=== PATIENT | female | born 1975 | race African-American/Black ===

== ENCOUNTER 2017-12-18 16:08 | Emergency (ER) | payer OTHER ==
[~2017-12-18] VITALS: Ht 162.6 cm; Wt 85.7 kg
[2017-12-18] MEDS ORDERED: Sodium Chloride 500ML 500 ML IV ONE (16:38)
[2017-12-18] MEDS ORDERED: Norco 5mg/325mg tab ORAL ONE (16:45)
[2017-12-18] MEDS ORDERED: Lidocaine 1% MPF 10mg/ml 5ml INJ ONE (16:45)
[2017-12-18 18:21] LABS: APPEARANCE,URINE CLOUDY; BILIRUBIN, URINE NEGATIVE (NEGATIVE); COLOR,URINE PALE YELLOW; GLUCOSE, URINE (UA) 4+ (NEGATIVE); KETONES,URINE 1+ (NEGATIVE); LEUKOCYTE ESTERASE ,URINE NEGATIVE (NEGATIVE); NITRITE,URINE NEGATIVE (NEGATIVE); PH,URINE 5 (4.5-8.0); PROTEIN,URINE 1+ (NEGATIVE); UROBILINOGEN,URINE NORMAL MG/DL (0.0-1.0)
[2017-12-18] MEDS ORDERED: LANTUS SOL100 UNIT/1 SUBQ (18:28)
[2017-12-18] MEDS ORDERED: ADMELOG SUBQ (18:30)
[2017-12-18 18:32] LABS: ANION GAP 9 mmol/L (5-15); BLOOD UREA NITROGEN 15 mg/dL (7-18); CALCIUM 9.5 MG/DL (8.5-10.1); CARBON DIOXIDE 28 MMOL/L (21-32); CHLORIDE 97 MMOL/L (98-107); CREATININE 0.8 MG/DL (0.55-1.30); POTASSIUM 4.1 MMOL/L (3.5-5.1); SODIUM 134 MMOL/L (136-145)
[2017-12-18 18:37] LABS: ALANINE AMINOTRANSFERASE 24 U/L (12-78); ALBUMIN 3.8 G/DL (3.4-5.0); ALBUMIN/GLOBULIN RATIO 0.9 (1.0-2.7); ALKALINE PHOSPHATASE 124 U/L (46-116); ASPARTATE AMINO TRANSFERASE 15 U/L (15-37); BILIRUBIN,TOTAL 0.3 MG/DL (0.2-1.0)
[2017-12-18 18:46] VITALS: BP 130/86
[2017-12-18 18:50] LABS: BASOPHILS % (AUTO) 0.6 % (0.0-2.0); EOSINOPHILS % (AUTO) 0.7 % (0.0-3.0); HEMOGLOBIN 13.4 G/DL (12.0-16.0); LYMPHOCYTES % (AUTO) 23.4 % (20.0-45.0); MEAN CORPUSCULAR VOLUME 86 FL (80-99); MONOCYTES % (AUTO) 4.5 % (1.0-10.0); NEUTROPHILS % (AUTO) 70.7 % (45.0-75.0); PLATELET COUNT 267 K/UL (150-450); RED BLOOD COUNT 4.63 M/UL (4.20-5.40); RED CELL DISTRIBUTION WIDTH 12.8 % (11.6-14.8); WHITE BLOOD COUNT 8.3 K/UL (4.8-10.8)
[2017-12-18] MEDS ORDERED: Bacitracin Oint UD TOPIC ONE (19:00)
[2017-12-18] MEDS ORDERED: Insulin Human Regular 100units/ml 3ml IV ONE (19:00)
[2017-12-18 20:00] VITALS: BP 133/96
--- NOTE | 2017-12-18 20:25 | Emergency Room Report ---
History of Present Illness General Chief Complaint: General Complaint Source: Patient Present Illness HPI Patient is had difficulty controlling her blood sugars for several days. She has an infection of her right ring finger that has been worsening and she feels this is the cause. She does take Lantus and also regular insulin. Her sugars of been greater than 300 at least 2 or 3 days. The patient states her fingers painful. Pain rated 10/10, pressure and sharp aching. There is no numbness. There is pus underneath the skin and the nail on one side. She denies any trauma. No NVD, dysuria, chest pain, dyspnea, other rashes, vag discharge, other extremity pain, headache. Allergies: Coded Allergies: No Known Allergies (Unverified , 12/18/17) Patient History Past Medical History: see triage record Social History: Reports: smoking Social History Narrative at home Last Menstrual Period: 11/20/2017 Now: No Reviewed Nursing Documentation: PMH: Agreed; PSxH: Agreed Nursing Documentation-PMH Past Medical History: No History, Except For Hx Diabetes: Yes Review of Systems All Other Systems: negative except mentioned in HPI Physical Exam Vital Signs Date Time Temp Pulse Resp B/P (MAP) Pulse Ox O2 Delivery O2 Flow Rate FiO2 12/18/17 16:15 98.4 96 14 130/86 99 Room Air 98.4 Sp02 EP Interpretation: reviewed, normal General Appearance: well appearing, no apparent distress, GCS 15 Head: normocephalic Eyes: bilateral eye normal inspection, bilateral eye PERRL ENT: moist mucus membranes Neck: supple Respiratory: lungs clear, normal breath sounds Cardiovascular #1: regular rate, rhythm Cardiovascular #2: 2+ radial (R) Gastrointestinal: normal inspection, normal bowel sounds, non tender, no mass, non-distended Musculoskeletal: back normal, gait/station normal, normal range of motion, swelling - and tenderness right ring finger Neurologic: alert, oriented x3, grossly normal Psychiatric: mood/affect normal Skin: warm/dry, other - paronychium R ring finger Procedures Incision and Drainage Incision and Drainage : Consent: Verbal Site: L ring finger Blade Size: 11 I & D Procedure: betadine prep, sterile drapes applied, sterile dressing applied Wound Location: upper extremity Wound's Depth, Shape: superficial, other - wedge resection of nail performed Wound Length (cm): 1 - wedge resection of nail Wound Explored: contaminated - pus expressed and drained Anesthesia: 1% Lidocaine - 1/2 digital block Volume Anesthetic (ccs): 2 Splint Applied?: No Patient Tolerated: Well Complications: None Medical Decision Making Diagnostic Impression: Primary Impression: Hyperglycemia Additional Impressions: Cellulitis and abscess of hand Paronychia ER Course Patient presents with hyperglycemia and a finger infection. Differential includes sepsis, diabetic ketoacidosis, diabetes poor control, cellulitis, osteomyelitis amongst others. This is disconcerting that she's been unable to control her blood sugars at home as she is aware how to do so with sliding scale insulin. Evaluation will be with labs. The finger needs to be incised and drained. The patient will be given a fluid bolus and then if needed insulin. Labs her CBC significant for normal white count and hemoglobin and hematocrit. CMP has normal bicarbonate but elevated blood sugar. After fluid boluses a blood sugar was still high. Insulin 10 units was given IV. The patient tolerated the incision and drainage and wedge resection of the nail well. The finger was dressed with a tube gauze and nonstick dressing and bacitracin. Blood sugar still wasn't improved much after IV insulin. The patient is not in diabetic ketoacidosis however there is resistance to the insulin at this time due to infection. Patient is also on pain at this time and morphine will be given as she took extra doses of the gabapentin earlier today. The patient was discussed with Dr. Chase and transferred. Laboratory Tests Test 12/18/17 18:00 White Blood Count 8.3 K/UL (4.8-10.8) Red Blood Count 4.63 M/UL (4.20-5.40) Hemoglobin 13.4 G/DL (12.0-16.0) Hematocrit 40.0 % (37.0-47.0) Mean Corpuscular Volume 86 FL (80-99) Mean Corpuscular Hemoglobin 28.9 PG (27.0-31.0) Mean Corpuscular Hemoglobin Concent 33.5 G/DL (32.0-36.0) Red Cell Distribution Width 12.8 % (11.6-14.8) Platelet Count 267 K/UL (150-450) Mean Platelet Volume 7.4 FL (6.5-10.1) Neutrophils (%) (Auto) 70.7 % (45.0-75.0) Lymphocytes (%) (Auto) 23.4 % (20.0-45.0) Monocytes (%) (Auto) 4.5 % (1.0-10.0) Eosinophils (%) (Auto) 0.7 % (0.0-3.0) Basophils (%) (Auto) 0.6 % (0.0-2.0) Urine Color Pale yellow Urine Appearance Cloudy Urine pH 5 (4.5-8.0) Urine Specific [place] 1.020 (1.005-1.035) Urine Protein 1+ (NEGATIVE) H Urine Glucose (UA) 4+ (NEGATIVE) H Urine Ketones 1+ (NEGATIVE) H Urine Blood 2+ (NEGATIVE) H Urine Nitrite Negative (NEGATIVE) Urine Bilirubin Negative (NEGATIVE) Urine Urobilinogen Normal MG/DL (0.0-1.0) Urine Leukocyte Esterase Negative (NEGATIVE) Urine RBC 10-15 /HPF (0 - 2) H Urine WBC 0-2 /HPF (0 - 2) Urine Squamous Epithelial Cells Many /LPF (NONE/OCC) H Urine Amorphous Sediment Moderate /LPF (NONE) H Urine Bacteria Few /HPF (NONE) Sodium Level 134 MMOL/L (136-145) L Potassium Level 4.1 MMOL/L (3.5-5.1) Chloride Level 97 MMOL/L (98-107) L Carbon Dioxide Level 28 MMOL/L (21-32) Anion Gap 9 mmol/L (5-15) Blood Urea Nitrogen 15 mg/dL (7-18) Creatinine 0.8 MG/DL (0.55-1.30) Estimate Glomerular Filtration Rate > 60 mL/min (>60) Glucose Level 385 MG/DL (74-106) H Calcium Level 9.5 MG/DL (8.5-10.1) Total Bilirubin 0.3 MG/DL (0.2-1.0) Aspartate Amino Transferase (AST) 15 U/L (15-37) Alanine Aminotransferase (ALT) 24 U/L (12-78) Alkaline Phosphatase 124 U/L (46-116) H Total Protein 7.9 G/DL (6.4-8.2) Albumin 3.8 G/DL (3.4-5.0) Globulin 4.1 g/dL Albumin/Globulin Ratio 0.9 (1.0-2.7) L Human Chorionic Gonadotropin, Qual Negative (NEGATIVE) Last Vital Signs Date Time Temp Pulse Resp B/P (MAP) Pulse Ox O2 Delivery O2 Flow Rate FiO2 12/18/17 23:07 98.4 82 18 138/89 93 Room Air 98.4 Status: improved Disposition: XFER SHT-TRM HOSP Condition: Serious Referrals: Shree Mcintyre MD (PCP) Julio Easley M.D. Dec 18, 2017 20:25
[2017-12-18] MEDS ORDERED: Bactrim-DS 1 tab ORAL ONE (20:30)
[2017-12-18] MEDS ORDERED: Morphine Sulfate 4mg/ml Inj (IV USE ONLY) IVP ONE ×2 (20:30→21:45)
[2017-12-18] MEDS ORDERED: cefTRIAXone 1 GM in NS 55 ML IVPB ONE (20:30)
[2017-12-18] MEDS ORDERED: Bactrim-DS 1 tab ONE (22:44)
[2017-12-18 22:48] VITALS: BP 138/89
[2017-12-18 22:55] VITALS: BP 138/89
[2017-12-18 23:07] VITALS: BP 138/89
== END 2017-12-18 23:07 | disposition short-term general hospital (02) ==
LOC: EMR 16:40
DX: E11.65 Type 2 diabetes mellitus with hyperglycemia (principal); L03.011 Cellulitis of right finger; Z79.4 Long term (current) use of insulin; F17.200 Nicotine dependence, unspecified, uncomplicated
CPT/HCPCS: 10060; 36415; 80053; 81003; 82962; 84703; 85025; 96365; 96375; 96376; 99285; J0696; J1815; J2270; J2405; J7040

== ENCOUNTER 2018-04-28 12:46 | Emergency (ER) | payer OTHER ==
[~2018-04-28] VITALS: Ht 157.5 cm; Wt 99.8 kg
[~2018-04-28 12:46] MED LIST: ADMELOG SUBQ; LANTUS SOL100 UNIT/1 SUBQ
[2018-04-28] MEDS ORDERED: Morphine Sulfate 4mg/ml Inj (IV/IM USE ONLY) IVP ONE (13:30)
[2018-04-28] MEDS ORDERED: Isovue-300 100ml vial INJ PRN (13:30)
--- NOTE | 2018-04-28 13:32 | NUR ---
ED Nurse Note: patient's bs checked 49, a/o x4, able to take PO juice, 2 juice given MD aware. has DM II
[2018-04-28 13:36] LABS: APPEARANCE,URINE SLIGHTLY CLOUDY; BILIRUBIN, URINE NEGATIVE (NEGATIVE); COLOR,URINE PALE YELLOW; GLUCOSE, URINE (UA) NEGATIVE (NEGATIVE); KETONES,URINE NEGATIVE (NEGATIVE); LEUKOCYTE ESTERASE ,URINE NEGATIVE (NEGATIVE); NITRITE,URINE NEGATIVE (NEGATIVE); PH,URINE 6.5 (4.5-8.0); PROTEIN,URINE 1+ (NEGATIVE); UROBILINOGEN,URINE NORMAL MG/DL (0.0-1.0)
[2018-04-28 13:44] LABS: BASOPHILS % (AUTO) 1.8 % (0.0-2.0); EOSINOPHILS % (AUTO) 1.4 % (0.0-3.0); HEMATOCRIT 38.7 % (37.0-47.0); HEMOGLOBIN 12.7 G/DL (12.0-16.0); LYMPHOCYTES % (AUTO) 25.9 % (20.0-45.0); MEAN CORPUSCULAR VOLUME 86 FL (80-99); MONOCYTES % (AUTO) 4.4 % (1.0-10.0); NEUTROPHILS % (AUTO) 66.6 % (45.0-75.0); PLATELET COUNT 383 K/UL (150-450); RED BLOOD COUNT 4.52 M/UL (4.20-5.40); RED CELL DISTRIBUTION WIDTH 13.2 % (11.6-14.8); WHITE BLOOD COUNT 9.7 K/UL (4.8-10.8)
--- NOTE | 2018-04-28 14:37 | NUR ---
ED Nurse Note: bs 70, 2 more cups of juice given
--- NOTE | 2018-04-28 14:40 | NUR ---
ED Nurse Note: received contrast consent from the patient a/o x4. patient was eating a snack she brought from home says she's hungry, educated patient not to eat for the scan pt verbalized understanding
[2018-04-28 14:56] LABS: ANION GAP 9 mmol/L (5-15); BLOOD UREA NITROGEN 8 mg/dL (7-18); CALCIUM 9.8 MG/DL (8.5-10.1); CARBON DIOXIDE 27 MMOL/L (21-32); CHLORIDE 103 MMOL/L (98-107); CREATININE 0.7 MG/DL (0.55-1.30); POTASSIUM 3.7 MMOL/L (3.5-5.1); SODIUM 139 MMOL/L (136-145)
[2018-04-28 15:01] LABS: ALANINE AMINOTRANSFERASE 20 U/L (12-78); ALBUMIN 3.5 G/DL (3.4-5.0); ALBUMIN/GLOBULIN RATIO 0.8 (1.0-2.7); ALKALINE PHOSPHATASE 102 U/L (46-116); ASPARTATE AMINO TRANSFERASE 14 U/L (15-37); BILIRUBIN,TOTAL 0.2 MG/DL (0.2-1.0)
--- NOTE | 2018-04-28 15:12 | NUR ---
ED Nurse Note: going down for CT
--- NOTE | 2018-04-28 15:44 | Emergency Room Report ---
History of Present Illness General Chief Complaint: Abdominal Pain Source: Patient (Wesley Waggoner MD) Present Illness HPI 42-year-old female presents ED for evaluation. Complaining of abdominal pain with nausea and vomiting. Started yesterday. Pain is sharp, 8 out of 10, nonradiating. Notes nausea and vomiting. Denies any diarrhea. States that she 's had a previous hernia with mesh repair in the past. Denies fevers or chills. Denies chest pain. No other aggravating relieving factors. Denies any other associated symptoms (Wesley Waggoner MD) Allergies: Coded Allergies: No Known Allergies (Unverified , 12/18/17) Patient History Past Medical History: DM Past Surgical History: other - hernia mesh repair Pertinent Family History: none Social History: Denies: smoking, alcohol use, drug use Last Menstrual Period: 04/08/18 Now: No Immunizations: UTD Reviewed Nursing Documentation: PMH: Agreed; PSxH: Agreed (Wesley Waggoner MD) Social History Narrative Works in [employer] (Julio Easley MD) Nursing Documentation-PMH Past Medical History: No History, Except For Hx Diabetes: Yes (Wesley Waggoner MD) Review of Systems All Other Systems: negative except mentioned in HPI (Wesley Waggoner MD) Physical Exam Vital Signs Date Time Temp Pulse Resp B/P (MAP) Pulse Ox O2 Delivery O2 Flow Rate FiO2 04/28/18 12:54 101 20 122/79 98 Room Air Sp02 EP Interpretation: reviewed, normal General Appearance: no apparent distress, alert, GCS 15, non-toxic, obese Head: normocephalic, atraumatic Eyes: bilateral eye normal inspection, bilateral eye PERRL ENT: hearing grossly normal, normal pharynx, no angioedema, normal voice Neck: full range of motion, supple/symm/no masses Respiratory: chest non-tender, lungs clear, normal breath sounds, speaking full sentences Cardiovascular #1: regular rate, rhythm, no edema Cardiovascular #2: 2+ carotid (R), 2+ carotid (L), 2+ radial (R), 2+ radial (L) , 2+ dorsalis pedis (R), 2+ dorsalis pedis (L) Gastrointestinal: normal bowel sounds, soft, non-distended, no guarding, no rebound, tenderness Rectal: deferred Genitourinary: normal inspection, no CVA tenderness Musculoskeletal: back normal, gait/station normal, normal range of motion, non- tender Neurologic: alert, oriented x3, responsive, motor strength/tone normal, sensory intact, speech normal Psychiatric: judgement/insight normal, memory normal, mood/affect normal, no suicidal/homicidal ideation Reflexes: 3+ bicep (R), 3+ bicep (L), 3+ tricep (R), 3+ tricep (L), 3+ knee (R) , 3+ knee (L) Skin: normal color, no rash, warm/dry, well hydrated Lymphatic: no adenopathy (Wesley Waggoner MD) Medical Decision Making Diagnostic Impression: Primary Impression: Abdominal pain Qualified Codes: R10.84 - Generalized abdominal pain Additional Impressions: Hypoglycemia Ventral hernia Qualified Codes: K43.9 - Ventral hernia without obstruction or gangrene Chronic calcific pancreatitis Labs Test 04/28/18 13:00 04/28/18 13:27 04/28/18 14:16 Urine Color Pale yellow Urine Appearance Slightly cloudy Urine pH 6.5 (4.5-8.0) Urine Specific [place] 1.015 (1.005-1.035) Urine Protein 1+ (NEGATIVE) Urine Glucose (UA) Negative (NEGATIVE) Urine Ketones Negative (NEGATIVE) Urine Blood 1+ (NEGATIVE) Urine Nitrite Negative (NEGATIVE) Urine Bilirubin Negative (NEGATIVE) Urine Urobilinogen Normal MG/DL (0.0-1.0) Urine Leukocyte Esterase Negative (NEGATIVE) Urine RBC 2-4 /HPF (0 - 2) Urine WBC 2-4 /HPF (0 - 2) Urine Squamous Epithelial Cells Moderate /LPF (NONE/OCC) Urine Bacteria Few /HPF (NONE) Urine HCG, Qualitative Negative (NEGATIVE) White Blood Count 9.7 K/UL (4.8-10.8) Red Blood Count 4.52 M/UL (4.20-5.40) Hemoglobin 12.7 G/DL (12.0-16.0) Hematocrit 38.7 % (37.0-47.0) Mean Corpuscular Volume 86 FL (80-99) Mean Corpuscular Hemoglobin 28.2 PG (27.0-31.0) Mean Corpuscular Hemoglobin Concent 32.9 G/DL (32.0-36.0) Red Cell Distribution Width 13.2 % (11.6-14.8) Platelet Count 383 K/UL (150-450) Mean Platelet Volume 5.2 FL (6.5-10.1) Neutrophils (%) (Auto) 66.6 % (45.0-75.0) Lymphocytes (%) (Auto) 25.9 % (20.0-45.0) Monocytes (%) (Auto) 4.4 % (1.0-10.0) Eosinophils (%) (Auto) 1.4 % (0.0-3.0) Basophils (%) (Auto) 1.8 % (0.0-2.0) Sodium Level 139 MMOL/L (136-145) Potassium Level 3.7 MMOL/L (3.5-5.1) Chloride Level 103 MMOL/L (98-107) Carbon Dioxide Level 27 MMOL/L (21-32) Anion Gap 9 mmol/L (5-15) Blood Urea Nitrogen 8 mg/dL (7-18) Creatinine 0.7 MG/DL (0.55-1.30) Estimat Glomerular Filtration Rate > 60 mL/min (>60) Glucose Level 63 MG/DL (74-106) Calcium Level 9.8 MG/DL (8.5-10.1) Total Bilirubin 0.2 MG/DL (0.2-1.0) Aspartate Amino Transf (AST/SGOT) 14 U/L (15-37) Alanine Aminotransferase (ALT/SGPT) 20 U/L (12-78) Alkaline Phosphatase 102 U/L (46-116) Total Protein 7.9 G/DL (6.4-8.2) Albumin 3.5 G/DL (3.4-5.0) Globulin 4.4 g/dL Albumin/Globulin Ratio 0.8 (1.0-2.7) Lipase 53 U/L (73-393) (Wesley Waggoner MD) ER Course Please see above note. Patient signed out to me to review CAT scan of abdomen and pelvis. CT reveals suggestion of inflammation of small bowel. No surgical pathology. Patient is improved. Discussed with patient outpatient observation and treatment. She understands close observation and the need to return if the pain returns or if there are difficulties controlling her blood sugar. Patient stable for outpatient observation and treatment. (Julio Easley MD) CT/MRI/US Diagnostic Results CT/MRI/US Diagnostic Results : Imaging Test Ordered: Abdomen and pelvis Impression Complex ventral hernia in the region of the umbilicus and just above the umbilicus as described above. The hernias contain fat. No evidence of bowel obstruction. Questionable mild enteritis/ileus. Correlate clinically. Chronic calcific pancreatitis Right fallopian tube implant. No corresponding left implant identified. Correlate clinically. (Julio Easley MD) Last Vital Signs Date Time Temp Pulse Resp B/P (MAP) Pulse Ox O2 Delivery O2 Flow Rate FiO2 04/28/18 15:21 101 20 Room Air 04/28/18 12:54 122/79 98 (Wesley Waggoner MD) Last Vital Signs Date Time Temp Pulse Resp B/P (MAP) Pulse Ox O2 Delivery O2 Flow Rate FiO2 04/28/18 17:39 97.2 04/28/18 17:30 72 20 122/79 98 Room Air Status: improved (Julio Easley MD) Disposition: HOME, SELF-CARE Condition: Improved Scripts Ibuprofen* (MOTRIN*) 600 Mg Tablet 600 MG ORAL Q6H PRN for For Pain, #20 TAB Prov: Julio Easley MD 04/28/18 Hydrocodone Bit/Acetaminophen 5-325* (NOR[place] 5-325*) 1 Each Tablet 1 TAB ORAL Q6H PRN for For Pain, #8 TAB 0 Refills Prov: Julio Easley MD 04/28/18 Referrals: Shree Mcintyre MD (PCP) Wesley Waggoner MD Apr 28, 2018 15:44 Julio Easley MD Apr 28, 2018 16:49
--- NOTE | 2018-04-28 16:14 | Diagnostic Imaging Report ---
Indication: Abdominal pain Technique: Continuous helical transaxial imaging of the abdomen and pelvis was obtained from the lung bases to the pubic symphysis during intravenous contrast administration. Coronal 2-D reformats were also obtained. Study obtained in a Siemens sensation [address] Automatic Exposure Control was utilized. Total Dose length Product (DLP): 1028.[address] Dose Index Volume (CTDIvol): 19.51 mGy Comparison: None Findings: At the level of the umbilicus there is a approximately 7 x 3 cm hernia containing fat. Hernia projects slightly to the right. In addition above the umbilicus there is a approximately 7 cm slightly more ill-defined hernia containing fat projecting leftward. There is no evidence of bowel obstruction. There is mild distention of loops of fluid-filled small bowel questionable for mild enteritis/ileus. Correlate clinically. There is no free fluid. The appendix is normal. There is a linear metallic focus in the right adnexa distended with a fallopian tube implant. Interestingly this is only on the right side. No corresponding left-sided implant is identified. Please correlate clinically. The uterus is noted. Urinary bladder is unremarkable. Minimal calcification of the aorta and iliac arteries demonstrated. The gallbladder is unremarkable. The liver, spleen, kidneys and adrenal glands appear unremarkable. Multiple punctate calcifications are noted within the pancreas which appears atrophic. Findings indicative of chronic calcific pancreatitis. The lung bases are clear. IMPRESSION: Complex ventral hernia in the region of the umbilicus and just above the umbilicus as described above. The hernias contain fat. No evidence of bowel obstruction. Questionable mild enteritis/ileus. Correlate clinically. Chronic calcific pancreatitis Right fallopian tube implant. No corresponding left implant identified. Correlate clinically. The CT scanner at [facility] is accredited by the [employer] and the scans are performed using dose optimization techniques as appropriate to a performed exam including Automatic Exposure control.
[2018-04-28] MEDS ORDERED: NORCO 5-325 TA1 EACH ORAL (16:50)
[2018-04-28] MEDS ORDERED: Norco 5mg/325mg tab ORAL ONE (17:00)
[2018-04-28 17:25] VITALS: BP 122/79
[2018-04-28 17:30] VITALS: BP 122/79
--- NOTE | 2018-04-28 17:33 | NUR ---
ED Nurse Note: patient is being discharged, cleared by Dr. Kaushal CAPPS. Discharge instructions/paper/prescription given to the patient, patient verbalized understanding, signed paper. a/o x4. All belongings taken with the patient. patient is ambulatory, steady gait. ID band removed. IV removed without complication. patient's fiance is going to pick him up.
[2018-04-28] MEDS ORDERED: IBUPROFEN600 MG ORAL (17:35)
--- NOTE | 2018-04-28 17:38 | NUR ---
ED Nurse Note: magali is here to pick him up
== END 2018-04-28 17:44 | disposition home or self-care (01) ==
LOC: EMR 13:15
DX: R10.84 Generalized abdominal pain (principal); E11.649 Type 2 diabetes mellitus with hypoglycemia without coma; K43.9 Ventral hernia without obstruction or gangrene; K86.1 Other chronic pancreatitis; E66.9 Obesity, unspecified; R11.2 Nausea with vomiting, unspecified; Z68.41 Body mass index [BMI] 40.0-44.9, adult
CPT/HCPCS: 36415; 74177; 80053; 81003; 81025; 82962; 83690; 85025; 96374; 96375; 99284; J2270; J2405; Q9967

== ENCOUNTER 2018-07-15 13:49 | Emergency (ER) | payer OTHER ==
[~2018-07-15] VITALS: Ht 157.5 cm; Wt 104.3 kg
[~2018-07-15 13:49] MED LIST changes: +AMLODIPINE BESYL5 MG ORAL; +IBUPROFEN600 MG ORAL; +METFORMIN HCL1000 M1 ORAL; +NORCO 5-325 TA1 EACH ORAL
--- NOTE | 2018-07-15 14:15 | NUR ---
ED Nurse Note: Patient presents to ER due to abdominal pain with brown, foul-odor drainage from the surgical site. Patient recently received hernia repair about 1 month ago. Removed the bandage from the navel and 5 lars with brown colored drainage noted. Reports no fever or chills. Per patient, patient has been having drainage since the surgery. Last BM today. Report no N/V or D. Patient in bed. Bed in lowest position.
[2018-07-15] MEDS ORDERED: Cefepime HCl 2 GM in NS 110 ML IV ONE (14:30)
[2018-07-15] MEDS ORDERED: Isovue-300 100ml vial INJ PRN (14:45)
[2018-07-15] MEDS ORDERED: GABAPENTIN300 MG ORAL (14:54)
[2018-07-15 15:24] LABS: APPEARANCE,URINE CLEAR; BILIRUBIN, URINE NEGATIVE (NEGATIVE); COLOR,URINE PALE YELLOW; GLUCOSE, URINE (UA) 4+ (NEGATIVE); KETONES,URINE NEGATIVE (NEGATIVE); LEUKOCYTE ESTERASE ,URINE NEGATIVE (NEGATIVE); NITRITE,URINE NEGATIVE (NEGATIVE); PH,URINE 6 (4.5-8.0); PROTEIN,URINE NEGATIVE (NEGATIVE); UROBILINOGEN,URINE NORMAL MG/DL (0.0-1.0)
[2018-07-15 15:25] LABS: BASOPHILS % (AUTO) 1.3 % (0.0-2.0); EOSINOPHILS % (AUTO) 1.4 % (0.0-3.0); HEMATOCRIT 39.1 % (37.0-47.0); HEMOGLOBIN 12.9 G/DL (12.0-16.0); LYMPHOCYTES % (AUTO) 15.3 % (20.0-45.0); MEAN CORPUSCULAR VOLUME 83 FL (80-99); MONOCYTES % (AUTO) 5.9 % (1.0-10.0); NEUTROPHILS % (AUTO) 76.2 % (45.0-75.0); PLATELET COUNT 359 K/UL (150-450); RED BLOOD COUNT 4.72 M/UL (4.20-5.40); RED CELL DISTRIBUTION WIDTH 14.8 % (11.6-14.8)
[2018-07-15 15:30] VITALS: BP 114/81
[2018-07-15] MEDS ORDERED: HYDROmorphone 2mg tab ORAL ONE (15:30)
[2018-07-15] MEDS ORDERED: HYDROmorphone 1mg/ml Carpuject IVP ONE ×2 (15:45→17:00)
[2018-07-15 15:49] LABS: ALANINE AMINOTRANSFERASE 17 U/L (12-78); ALBUMIN 3.4 G/DL (3.4-5.0); ALBUMIN/GLOBULIN RATIO 0.7 (1.0-2.7); ALKALINE PHOSPHATASE 160 U/L (46-116); ANION GAP 13 mmol/L (5-15); ASPARTATE AMINO TRANSFERASE 12 U/L (15-37); BILIRUBIN,TOTAL 0.2 MG/DL (0.2-1.0); BLOOD UREA NITROGEN 7 mg/dL (7-18); CALCIUM 9.4 MG/DL (8.5-10.1); CARBON DIOXIDE 25 MMOL/L (21-32); CHLORIDE 94 MMOL/L (98-107); CREATINE KINASE 79 U/L (26-308); CREATININE 0.9 MG/DL (0.55-1.30); POTASSIUM 3.9 MMOL/L (3.5-5.1); SODIUM 132 MMOL/L (136-145)
--- NOTE | 2018-07-15 15:51 | NUR ---
ED Nurse Note: Confirmed total amount of IV fluids with Alex Quinones and ordered to administer 3L total.
[2018-07-15] MEDS ORDERED: Sodium Chloride 3,100 ML IVLG ONE (16:00)
--- NOTE | 2018-07-15 16:06 | Emergency Room Report ---
History of Present Illness General Chief Complaint: Wound Recheck/Suture Removal Source: Patient Present Illness HPI 43-year-old female presents to the emergency department complaining of 10 out of 10 in severity pain in the umbilical region of the abdomen at a vertical incision site. Patient recently had hernia repair surgery done approximately 4 weeks ago. at [facility] by Dr. Santana. Since states that her pain has been progressive she is now complaining of purulent discharge from the surgical site , increasing tenderness and increasing pain throughout the abdomen. He also reports history of previous hernia surgeries which failed she also reports history of diabetes and states that she takes Lantus. She denies fevers, chills , vomiting she reports some nausea denies constipation or diarrhea patient states she is able to pass flatulence. His chest pain shortness of breath or sudden severe headache. Allergies: Coded Allergies: No Known Allergies (Unverified , 12/18/17) Patient History Past Medical History: see triage record Past Surgical History: none Pertinent Family History: none Last Menstrual Period: 3-14 Now: No Reviewed Nursing Documentation: PMH: Agreed Nursing Documentation-PMH Past Medical History: No History, Except For Hx Hypertension: Yes Hx Diabetes: Yes Hx Gastrointestinal Problems: Yes Review of Systems All Other Systems: negative except mentioned in HPI Physical Exam Vital Signs Date Time Temp Pulse Resp B/P (MAP) Pulse Ox O2 Delivery O2 Flow Rate FiO2 07/15/18 13:53 98.1 111 20 132/82 98 Room Air Sp02 EP Interpretation: reviewed, normal General Appearance: alert, GCS 15, non-toxic, moderate distress Head: normocephalic, atraumatic Eyes: bilateral eye normal inspection, bilateral eye PERRL ENT: hearing grossly normal, normal voice Neck: full range of motion Respiratory: lungs clear, normal breath sounds, speaking full sentences Cardiovascular #1: regular rate, rhythm Gastrointestinal: normal bowel sounds, tenderness - moderate tenderness with some distention noted in all 4 quadrants, rebound tenderness Genitourinary: normal inspection, no CVA tenderness Musculoskeletal: back normal, gait/station normal, normal range of motion, non- tender Neurologic: alert, oriented x3, responsive, motor strength/tone normal, sensory intact, speech normal, grossly normal Psychiatric: judgement/insight normal Skin: no rash, warm/dry, well hydrated, other - surgical wound with pus, tenderness and warmth in the umbillical region, several lars remain in place. Medical Decision Making PA Attestation Dr. borja is my supervising Physician whom patient management has been discussed with. Diagnostic Impression: Primary Impression: Surgical site infection ER Course 43-year-old female presents to the emergency department complaining of 10 out of 10 in severity pain in the umbilical region of the abdomen at a vertical incision site. Patient recently had hernia repair surgery done approximately 4 weeks ago. at [facility] by Dr. Santana. Since states that her pain has been progressive she is now complaining of purulent discharge from the surgical site , increasing tenderness and increasing pain throughout the abdomen. He also reports history of previous hernia surgeries which failed she also reports history of diabetes and states that she takes Lantus. She denies fevers, chills , vomiting she reports some nausea denies constipation or diarrhea patient states she is able to pass flatulence. His chest pain shortness of breath or sudden severe headache. Ddx considered but are not limited to Diverticulitis, acute appy, diarrhea,UC, PUD, GE, pancreatitis, gallstone, ovarian torsion, ectopic , PID tubo-ovarian abscess. Vital signs: are WNL, pt. is afebrile H&PE are most consistent with Surgical Site infection of the abdomen with peritoneal signs ORDERS: -CBC, CMP, LIPASE: elevated glucose of 590 -lactic Acid: 3.5 - Ck: WNL -Troponin: WNL Blood Cultures x 2 : Pending -UA: negative ketones, elevated glucose -URINE HCG:negative ED INTERVENTIONS: - Flagyl + Cefipme IV - 30 mg/kg NS bolus --- 3 liters - Dilaudid 1 mg IV x 2 - DISPOSITION: at this time pt. will be admitted to surgical site infection for Salvatore. Dr. Chase agreed to admit the pt. and to continue pt. care management. Labs Test 07/15/18 14:57 07/15/18 17:20 White Blood Count 9.0 K/UL (4.8-10.8) Red Blood Count 4.72 M/UL (4.20-5.40) Hemoglobin 12.9 G/DL (12.0-16.0) Hematocrit 39.1 % (37.0-47.0) Mean Corpuscular Volume 83 FL (80-99) Mean Corpuscular Hemoglobin 27.3 PG (27.0-31.0) Mean Corpuscular Hemoglobin Concent 32.8 G/DL (32.0-36.0) Red Cell Distribution Width 14.8 % (11.6-14.8) Platelet Count 359 K/UL (150-450) Mean Platelet Volume 6.3 FL (6.5-10.1) Neutrophils (%) (Auto) 76.2 % (45.0-75.0) Lymphocytes (%) (Auto) 15.3 % (20.0-45.0) Monocytes (%) (Auto) 5.9 % (1.0-10.0) Eosinophils (%) (Auto) 1.4 % (0.0-3.0) Basophils (%) (Auto) 1.3 % (0.0-2.0) Urine Color Pale yellow Urine Appearance Clear Urine pH 6 (4.5-8.0) Urine Specific [place] 1.005 (1.005-1.035) Urine Protein Negative (NEGATIVE) Urine Glucose (UA) 4+ (NEGATIVE) Urine Ketones Negative (NEGATIVE) Urine Blood 5+ (NEGATIVE) Urine Nitrite Negative (NEGATIVE) Urine Bilirubin Negative (NEGATIVE) Urine Urobilinogen Normal MG/DL (0.0-1.0) Urine Leukocyte Esterase Negative (NEGATIVE) Urine RBC 0-2 /HPF (0 - 2) Urine WBC 0-2 /HPF (0 - 2) Urine Squamous Epithelial Cells Few /LPF (NONE/OCC) Urine Bacteria Few /HPF (NONE) Sodium Level 132 MMOL/L (136-145) Potassium Level 3.9 MMOL/L (3.5-5.1) Chloride Level 94 MMOL/L (98-107) Carbon Dioxide Level 25 MMOL/L (21-32) Anion Gap 13 mmol/L (5-15) Blood Urea Nitrogen 7 mg/dL (7-18) Creatinine 0.9 MG/DL (0.55-1.30) Estimat Glomerular Filtration Rate > 60 mL/min (>60) Glucose Level 505 MG/DL (74-106) Calcium Level 9.4 MG/DL (8.5-10.1) Total Bilirubin 0.2 MG/DL (0.2-1.0) Aspartate Amino Transf (AST/SGOT) 12 U/L (15-37) Alanine Aminotransferase (ALT/SGPT) 17 U/L (12-78) Alkaline Phosphatase 160 U/L (46-116) Total Creatine Kinase 79 U/L (26-308) Total Protein 8.0 G/DL (6.4-8.2) Albumin 3.4 G/DL (3.4-5.0) Globulin 4.6 g/dL Albumin/Globulin Ratio 0.7 (1.0-2.7) CT/MRI/US Diagnostic Results CT/MRI/US Diagnostic Results : Imaging Test Ordered: CT Abdomen and Pelvis with contrast Impression "IMPRESSION: Status post recent umbilical hernia repair with an extrafascial, subcutaneous postoperative 4 x 3.5 cm fluid collection. This may be a seroma, lymphocele or hematoma. Abscess not excluded. Please correlate clinically. 6 cm cystic focus in the right adnexa possibly an ovarian cyst. Follow-up suggested. Curvilinear right adnexal radiopaque foreign body likely fallopian tube implant. Chronic calcific pancreatitis in the head of the pancreas region." ---Per official radiology report- Please see report for specific details. Last Vital Signs Date Time Temp Pulse Resp B/P (MAP) Pulse Ox O2 Delivery O2 Flow Rate FiO2 07/15/18 13:53 98.1 111 20 132/82 98 Room Air Status: unchanged Disposition: ADMITTED INPATIENT Condition: Serious Referrals: Shree Mcintyre MD (PCP) Stacie Ortiz Jul 15, 2018 16:06
--- NOTE | 2018-07-15 16:08 | NUR ---
ED Nurse Note: Pateint taken down for CT scan in wheelchair.
[2018-07-15 16:49] VITALS: BP 119/80
--- NOTE | 2018-07-15 16:51 | Diagnostic Imaging Report ---
Indication: Abdominal pain Technique: Continuous helical transaxial imaging of the abdomen and pelvis was obtained from the lung bases to the pubic symphysis during intravenous contrast administration. Coronal 2-D reformats were also obtained. Study obtained in a Siemens sensation [address] Automatic Exposure Control was utilized. Total Dose length Product (DLP): 1095.[address] Dose Index Volume (CTDIvol): 19.51 mGy Comparison: None Findings: The lung bases are clear. The liver and spleen appear unremarkable. Pancreas is atrophic. There are calcifications in the pancreatic head likely due to old pancreatitis. The kidneys are unremarkable. There is no hydronephrosis. The gallbladder is contracted. There are skin lars in the area of the umbilicus. Just above the umbilicus within the subcutaneous fat anterior to the abdominal wall there is a 4 x 3.5 cm fluid collection which is probably a postsurgical fluid collection such as a seroma, lymphocele or hematoma. Abscess is certainly not excluded. In light of the prior study which showed a prominent ventral hernia containing fat the surgery was likely for ventral hernia repair. In the right adnexa there is a cystic focus now demonstrated measuring 6 cm. This may be an ovarian cyst and was not seen on the prior occasion. There is a metallic curvilinear structure adjacent to this cyst which is likely a fallopian tube implant. A contralateral left-sided implant is not visualized. The bladder is unremarkable. Uterus is present. The appendix is normal. IMPRESSION: Status post recent umbilical hernia repair with an extrafascial, subcutaneous postoperative 4 x 3.5 cm fluid collection. This may be a seroma, lymphocele or hematoma. Abscess not excluded. Please correlate clinically. 6 cm cystic focus in the right adnexa possibly an ovarian cyst. Follow-up suggested. Curvilinear right adnexal radiopaque foreign body likely fallopian tube implant. Chronic calcific pancreatitis in the head of the pancreas region. The CT scanner at [facility] is accredited by the [employer] and the scans are performed using dose optimization techniques as appropriate to a performed exam including Automatic Exposure control.
--- NOTE | 2018-07-15 18:08 | NUR ---
ED Nurse Note: Report given to MINDA Maradiaga at [facility].
[2018-07-15 18:10] VITALS: BP 156/99
--- NOTE | 2018-07-15 18:15 | NUR ---
ED Nurse Note: Patient received total 2L IV fluids here. Ashwini PERLA notfied and aware.
== END 2018-07-15 18:10 | disposition short-term general hospital (02) ==
LOC: EMR 14:32 → EDBEDREQ 14:44 → EMR 18:10
DX: T81.49XA Infection following a procedure, other surgical site, initial encounter (principal); B99.9 Unspecified infectious disease; Y83.8 Other surgical procedures as the cause of abnormal reaction of the patient, or of later complication, without mention of misadventure at the time of the procedure; Y92.9 Unspecified place or not applicable
CPT/HCPCS: 36415; 74177; 80053; 81003; 81025; 82550; 82962; 83605; 85025; 87040; 96361; 96365; 96368; 96375; 96376; 99285; J1170; Q9967

== ENCOUNTER 2018-08-04 17:20 | Emergency (ER) | payer OTHER ==
[~2018-08-04] VITALS: Ht 157.5 cm; Wt 99.8 kg
[~2018-08-04 17:20] MED LIST changes: +GABAPENTIN300 MG ORAL
[2018-08-04 17:27] VITALS: BP 148/94
--- NOTE | 2018-08-04 17:37 | NUR ---
ED Nurse Note: Patient walked into ED c/o painful and itching rash around the groin, perianal area since this morning patient also reports painful burning rash around her mouth. patient reports oozing from the rash on the roin patient denies that the oozing comes from the vagina. patient is alert, awake x4 ambulatory
--- NOTE | 2018-08-04 18:25 | Emergency Room Report ---
History of Present Illness General Chief Complaint: Female Urogenital Problems Source: Patient Present Illness HPI 43 YO Female presents to the ED c/o in severity burning and itchy rash that has been progressive in the groin/vaginal area x 5 days. pt. reports severe sensitivity. denies recent sexual intercourse, denies vaginal d/c or sores. pt. also reports recent URI with asthma exacerbation and not having very sensitive sores in the mouth and lips. Pt. denies fevers, chills or swollen tender lymph nodes. Denies lesions/rashes elsewhere on the body. Denies new medications or body washes or creams. Denies swelling of the lips, tongue , throat or airway. Denies wheezing, or shortness of breath. Denies recent travel , recent illness or ill contacts. denies blisters, oral lesions, or sloughing of the skin. She has been applying bacitracin without relief of her symptoms. Denies recent abx use. denies urinary frequency, urgency or dysuria Allergies: Coded Allergies: No Known Allergies (Unverified , 08/04/18) Patient History Past Medical History: see triage record Past Surgical History: none Pertinent Family History: none Last Menstrual Period: 07/08/18 Now: No Immunizations: UTD Reviewed Nursing Documentation: PMH: Agreed; PSxH: Agreed Nursing Documentation-PMH Past Medical History: No History, Except For Hx Hypertension: Yes Hx Diabetes: Yes Hx Gastrointestinal Problems: Yes Review of Systems All Other Systems: negative except mentioned in HPI Physical Exam Vital Signs Date Time Temp Pulse Resp B/P (MAP) Pulse Ox O2 Delivery O2 Flow Rate FiO2 08/04/18 17:27 99.0 92 18 148/94 98 Room Air Sp02 EP Interpretation: reviewed, normal General Appearance: no apparent distress, alert, GCS 15, non-toxic Head: normocephalic, atraumatic Eyes: bilateral eye normal inspection, bilateral eye PERRL ENT: hearing grossly normal, normal voice, other - some oral ulcers noted, no swelling of the lips or tongue, sores on tongue and lips. Neck: full range of motion Respiratory: chest non-tender, lungs clear, normal breath sounds, no accessory muscle use, speaking full sentences Cardiovascular #1: regular rate, rhythm Genitourinary: normal inspection, no CVA tenderness, adnexa normal, other - external labia and up into the groin bilaterally --macerated appearance with satellite lesions. no blisters or vesicles noted. Musculoskeletal: back normal, gait/station normal, normal range of motion, non- tender Neurologic: alert, oriented x3, responsive, motor strength/tone normal, sensory intact, speech normal, grossly normal Psychiatric: judgement/insight normal Skin: normal color, warm/dry, well hydrated, rash - external labia and up into the groin bilaterally --macerated appearance with satellite lesions. no blisters or vesicles noted. Lymphatic: no adenopathy Medical Decision Making PA Attestation Dr. Woodson is my supervising Physician whom patient management has been discussed with. Diagnostic Impression: Primary Impression: Rash and nonspecific skin eruption ER Course 43 YO Female presents to the ED c/o in severity burning and itchy rash that has been progressive in the groin/vaginal area x 5 days. pt. reports severe sensitivity. denies recent sexual intercourse, denies vaginal d/c or sores. pt. also reports recent URI with asthma exacerbation and not having very sensitive sores in the mouth and lips. Pt. denies fevers, chills or swollen tender lymph nodes. Denies lesions/rashes elsewhere on the body. Denies new medications or body washes or creams. Denies swelling of the lips, tongue , throat or airway. Denies wheezing, or shortness of breath. Denies recent travel , recent illness or ill contacts. denies blisters, oral lesions, or sloughing of the skin. She has been applying bacitracin without relief of her symptoms. Denies recent abx use. denies urinary frequency, urgency or dysuria. Ddx considered but are not limited to cellulitis, scabies, shingles, varicella, dermatitis, urticaria, eczema, tinea, viral exanthem, SJS Vital signs: are WNL, pt. is afebrile H&PE are most consistent with vaginitis, most likely yeast due to macerated appearance with satellite lesions. no blisters or vesicles noted. - no evidence of impending anaphylaxis or airway compromise. ORDERS: none required at this time, the diagnosis is clinical ED INTERVENTIONS: -Diflucan PO DISCHARGE: At this time pt. is stable for d/c to home. Will provide printed patient care instructions, and any necessary prescriptions. Care plan and follow up instructions have been discussed with the patient prior to discharge. Last Vital Signs Date Time Temp Pulse Resp B/P (MAP) Pulse Ox O2 Delivery O2 Flow Rate FiO2 08/04/18 17:27 99.0 92 18 148/94 98 Room Air Disposition: HOME, SELF-CARE Condition: Stable Scripts D-Methorphan Hb/Prometh Hcl* (PROMETHAZINE-DM SYRUP*) 118 Ml Syrup 5 ML ORAL Q6H PRN for For Cough, #120 ML 0 Refills Prov: Stacie Ortiz 08/04/18 Albuterol Sulfate* (ALBUTEROL SULFATE MDI*) 8.5 Gm Hfa.aer.ad 2 PUFF INH Q3H, #1 INH 0 Refills Prov: Stacie Ortiz 08/04/18 Valacyclovir Hcl* (VALTREX*) 500 Mg Tablet 500 MG ORAL THREE TIMES A DAY for 7 Days, #21 TAB 0 Refills Prov: Stacie Ortiz 08/04/18 Nystatin* (NYSTATIN*) 15 Gm Cream..g. 1 APPLIC TOPIC THREE TIMES A DAY, #15 GM 2 Refills Prov: Stacie Ortiz 08/04/18 Fluconazole (FLUCONAZOLE) 100 Mg Tablet 100 MG ORAL DAILY, #3 TAB 0 Refills Prov: Stacie Ortiz 08/04/18 Patient Instructions: Rash, Wozt-ye-Affe, Vaginitis Additional Instructions: Take medications as directed. Follow up with a Primary Care Provider in 3-5 days, even if your symptoms have resolved. For INSPECTOR AND UNLOADER FOLLOW UP --Please review list of primary care clinics, if you do not already have a primary care provider Return sooner to ED if new symptoms occur, or current symptoms become worse. - Please note that this Emergency Department Report was dictated using Arlettielabor relations supervisor technology software, occasionally this can lead to erroneous entry secondary to interpretation by the dictation equipment. Stacie Ortiz Aug 04, 2018 18:25
[2018-08-04] MEDS ORDERED: FLUCONAZOLE100 MG ORAL (18:27)
[2018-08-04] MEDS ORDERED: VALTREX500 MG ORAL (18:27)
[2018-08-04] MEDS ORDERED: Fluconazole 100mg tab ONE (18:27)
[2018-08-04] MEDS ORDERED: NYSTATIN15 GM TOPIC (18:27)
[2018-08-04] MEDS ORDERED: Fluconazole 100mg tab ORAL ONE (18:30)
[2018-08-04] MEDS ORDERED: ALBUTEROL SULF8.5 GM INH (18:34)
[2018-08-04] MEDS ORDERED: PROMETHAZINE-D118 ML ORAL (18:34)
[2018-08-04 18:36] VITALS: BP 148/94
--- NOTE | 2018-08-04 18:36 | NUR ---
ER DISCHARGE NOTE: Patient is cleared to be discharged per ERPA , pt is aox4, on room air, with stable vital signs. pt was given dc and prescription instructions, pt was able to verbalize understanding, pt id band removed without complications. pt is able to ambulate with steady gait. pt took all belongings.
== END 2018-08-04 18:45 | disposition home or self-care (01) ==
LOC: EMR 18:45
DX: R21 Rash and other nonspecific skin eruption (principal); I10 Essential (primary) hypertension; E11.9 Type 2 diabetes mellitus without complications
CPT/HCPCS: 99282

== ENCOUNTER 2018-08-07 16:38 | Inpatient (IN) | payer OTHER ==
[2018-08-07] VITALS (9 sets, daily range): BP systolic 128–162; BP diastolic 80–117
[~2018-08-07] VITALS: Ht 157.5 cm; Wt 103.4 kg
[~2018-08-07 16:38] MED LIST changes: +ALBUTEROL SULF8.5 GM INH; +FLUCONAZOLE100 MG ORAL; +NYSTATIN15 GM TOPIC; +PROMETHAZINE-D118 ML ORAL; +VALTREX500 MG ORAL
[2018-08-07] MEDS ORDERED: Cefepime HCl 2 GM in NS 110 ML IV STA (17:00)
[2018-08-07] MEDS ORDERED: Trimethoprim/Sulfamethoxazole 20 ML in D5W 500ml 550 ML IV ONE (17:00)
[2018-08-07] MEDS ORDERED: Lidocaine 1% 10mg/ml/EPI 0.01mg/ml 20ml INJ ONE (17:00)
[2018-08-07] MEDS ORDERED: LET 3ml Soln TOPIC ONE (17:00)
--- NOTE | 2018-08-07 17:05 | NUR ---
ED Nurse Note: brought by from home due to painful abscess on labia for couple days. pt also c/o high BS. HI on glucometer at the triage. pt is complaining of 10/10 pain on the vaginal area for 3 days. pt stated it begun with a rash and became worse. bs is "high" upon assessment. ermd on bedside. will continue to monitor.
--- NOTE | 2018-08-07 17:12 | Emergency Room Report ---
History of Present Illness General Chief Complaint: Abnormal Labs Source: Patient Present Illness HPI Patient was seen several days ago (08/04) for pain in her vaginal area. She was started on valacyclovir. She denies having any skin lesions. There is swelling that's occurred in that area and she's having difficulty walking at this time. She's also felt feverish. She is diabetic and her sugars have been difficult to control. It was over 500 this morning and she took 60 units of Humalog (usually, she takes 15). It's still was not controlled well. She's feeling weak, had difficulty walking yesterday. The pain in the labial area is severe (13/02), pressure and aching. She states her tetanus is up-to-date. No other dysuria. Not . No URI sy. No other rashes. No joint pain per se. No cough or dyspnea. No sore throat. No NVD. Allergies: Coded Allergies: No Known Allergies (Unverified , 08/04/18) Patient History Past Medical History: see triage record Past Surgical History: other - hernia Social History: Reports: smoking Social History Narrative at home Last Menstrual Period: 07/08/18 Reviewed Nursing Documentation: PMH: Agreed; PSxH: Agreed Nursing Documentation-PMH Past Medical History: No History, Except For Hx Hypertension: Yes Hx Diabetes: Yes Hx Gastrointestinal Problems: Yes Review of Systems All Other Systems: negative except mentioned in HPI Physical Exam Vital Signs Date Time Temp Pulse Resp B/P (MAP) Pulse Ox O2 Delivery O2 Flow Rate FiO2 08/07/18 16:45 98.8 114 20 134/92 94 Room Air Sp02 EP Interpretation: reviewed, normal General Appearance: alert, GCS 15, mild distress Head: normocephalic Eyes: bilateral eye normal inspection, bilateral eye PERRL ENT: moist mucus membranes Neck: supple Respiratory: lungs clear, normal breath sounds Cardiovascular #1: tachycardia Cardiovascular #2: 2+ radial (R) Gastrointestinal: normal inspection, normal bowel sounds, non tender, no mass, non-distended Genitourinary: other - L sided Bartholyn's cyst starting to drain Musculoskeletal: back normal, normal range of motion Neurologic: alert, oriented x3, grossly normal Psychiatric: anxious - in pain Skin: normal inspection, warm/dry, other - see genitals Procedures Critical Care Time Critical Care Time Total Critical Care Time: 45 min bedside evaluation and treatment excludes procedures (EKG, I and D). Reason for critical care: sepsis, DKA, Bartholin's abscess Possible complications: hypotension, hypertension, FL, shock, arrhythmias, metabolic acidosis, end organ damage, respiratory failure. Interventions: I and D, antibiotics, fluid resuscitation, insulin drip Course: Diabetic with Bartholin's abscess. Extreme hyperglycemia with mild acidosis. Septic. Fluid resuscitation and antibiotics begun. I and D of abscess. Insulin bolus and drip begun. Improved. Adjustment of insulin drip. Consultations: nursing staff, admitting MD Performed by: Dr. Easley Tolerated well condition = critical Incision and Drainage Incision and Drainage : Consent: Verbal Blade Size: 11 I & D Procedure: betadine prep, sterile drapes applied, sterile dressing applied, gauze wick placed Wound Location: other - Bartholyn's cyst Wound's Depth, Shape: other - into subcutaneous tissue - abscess present Wound Explored: contaminated Irrigated w/ Saline (ccs): 10 Anesthesia: Lidocaine w/ Epi, other - LET Patient Tolerated: Well Complications: None Medical Decision Making Diagnostic Impression: Primary Impression: Sepsis Qualified Codes: A41.9 - Sepsis, unspecified organism Additional Impressions: Bartholin cyst DKA (diabetic ketoacidosis) Qualified Codes: E10.10 - Type 1 diabetes mellitus with ketoacidosis without coma ER Course Diabetic patient presents with Bartholin's cyst. Patient is tachycardic and her sugars are not controlled. Includes DKA, sepsis, bacteremia, hyperosmolar state amongst others. Evaluation will be with culture the wound, labs and EKG. Treatment will be with cefepime and Bactrim IV along with pain medication. We will use topical anesthetic, then lidocain/epi and then incise the wound and pack it. Aggressive IV hydration. EKG was sinus tachycardia. Called with critical glucose value of 700. Lactic acid 2.4. Ketone 2+ urine. Pyuria might be contamination from draining abscess. I and D of Bartholin's cyst done. Tolerated OK. Drain placed. Insulin bolus and drip begun. Glucose = 452 Glucose 336. Prior to transfer to ICU, insulin drip reduced. Admit ICU Dr. Mcintyre. Laboratory Tests Test 08/07/18 17:00 08/07/18 17:20 White Blood Count 11.9 K/UL (4.8-10.8) H Red Blood Count 5.46 M/UL (4.20-5.40) H Hemoglobin 14.6 G/DL (12.0-16.0) Hematocrit 45.8 % (37.0-47.0) Mean Corpuscular Volume 84 FL (80-99) Mean Corpuscular Hemoglobin 26.6 PG (27.0-31.0) L Mean Corpuscular Hemoglobin Concent 31.8 G/DL (32.0-36.0) L Red Cell Distribution Width 15.0 % (11.6-14.8) H Platelet Count 258 K/UL (150-450) Mean Platelet Volume 6.8 FL (6.5-10.1) Neutrophils (%) (Auto) 84.5 % (45.0-75.0) H Lymphocytes (%) (Auto) 9.8 % (20.0-45.0) L Monocytes (%) (Auto) 4.5 % (1.0-10.0) Eosinophils (%) (Auto) 0.4 % (0.0-3.0) Basophils (%) (Auto) 0.9 % (0.0-2.0) Prothrombin Time 10.7 SEC (9.30-11.50) Prothrombin Time INR 1.0 (0.9-1.1) PTT 37 SEC (23-33) H Sodium Level 124 MMOL/L (136-145) L Potassium Level 4.2 MMOL/L (3.5-5.1) Chloride Level 90 MMOL/L (98-107) L Carbon Dioxide Level 20 MMOL/L (21-32) L Anion Gap 15 mmol/L (5-15) Blood Urea Nitrogen 9 mg/dL (7-18) Creatinine 1.3 MG/DL (0.55-1.30) Estimate Glomerular Filtration Rate 54.7 mL/min (>60) Glucose Level 766 MG/DL (74-106) *H Lactic Acid Level 2.40 mmol/L (0.4-2.0) H Calcium Level 9.8 MG/DL (8.5-10.1) Total Bilirubin 0.5 MG/DL (0.2-1.0) Aspartate Amino Transferase (AST) 16 U/L (15-37) Alanine Aminotransferase (ALT) 19 U/L (12-78) Alkaline Phosphatase 200 U/L (46-116) H Total Creatine Kinase 82 U/L (26-308) Troponin I 0.009 ng/mL (0.000-0.056) Total Protein 8.3 G/DL (6.4-8.2) H Albumin 3.5 G/DL (3.4-5.0) Globulin 4.8 g/dL Albumin/Globulin Ratio 0.7 (1.0-2.7) L Lipase 51 U/L (73-393) L Urine Color Pale yellow Urine Appearance Slightly cloudy Urine pH 6.5 (4.5-8.0) Urine Specific Sheldon 1.005 (1.005-1.035) Urine Protein Negative (NEGATIVE) Urine Glucose (UA) 4+ (NEGATIVE) H Urine Ketones 2+ (NEGATIVE) H Urine Blood 5+ (NEGATIVE) H Urine Nitrite Negative (NEGATIVE) Urine Bilirubin Negative (NEGATIVE) Urine Urobilinogen Normal MG/DL (0.0-1.0) Urine Leukocyte Esterase 3+ (NEGATIVE) H Urine RBC 15-20 /HPF (0 - 2) H Urine WBC Tntc /HPF (0 - 2) H Urine Squamous Epithelial Cells Moderate /LPF (NONE/OCC) H Urine Bacteria Moderate /HPF (NONE) H EKG Diagnostic Results Rate: tachycardiac Rhythm: NSR ST Segments: no acute changes Rhythm Strip Diag. Results EP Interpretation: yes Rhythm: no PVC's, no ectopy, other - Sinus tachycardia Last Vital Signs Date Time Temp Pulse Resp B/P (MAP) Pulse Ox O2 Delivery O2 Flow Rate FiO2 08/08/18 01:00 86 12 149/129 (136) 99 08/08/18 00:00 98.1 08/08/18 00:00 Room Air Status: improved Disposition: ADMITTED INPATIENT Condition: Critical Referrals: Shree Mcintyre MD (PCP) Julio Easley MD Aug 07, 2018 17:12
[2018-08-07 17:14] LABS: BASOPHILS % (AUTO) 0.9 % (0.0-2.0); EOSINOPHILS % (AUTO) 0.4 % (0.0-3.0); HEMATOCRIT 45.8 % (37.0-47.0); HEMOGLOBIN 14.6 G/DL (12.0-16.0); LYMPHOCYTES % (AUTO) 9.8 % (20.0-45.0); MEAN CORPUSCULAR VOLUME 84 FL (80-99); MONOCYTES % (AUTO) 4.5 % (1.0-10.0); NEUTROPHILS % (AUTO) 84.5 % (45.0-75.0); PLATELET COUNT 258 K/UL (150-450); RED BLOOD COUNT 5.46 M/UL (4.20-5.40); WHITE BLOOD COUNT 11.9 K/UL (4.8-10.8)
[2018-08-07] MEDS ORDERED: HYDROmorphone 1mg/ml Carpuject IVP ONE (17:15)
[2018-08-07 17:26] LABS: ANION GAP 15 mmol/L (5-15); BLOOD UREA NITROGEN 9 mg/dL (7-18); CALCIUM 9.8 MG/DL (8.5-10.1); CARBON DIOXIDE 20 MMOL/L (21-32); CHLORIDE 90 MMOL/L (98-107); CREATININE 1.3 MG/DL (0.55-1.30); POTASSIUM 4.2 MMOL/L (3.5-5.1); SODIUM 124 MMOL/L (136-145)
[2018-08-07 17:28] LABS: ALANINE AMINOTRANSFERASE 19 U/L (12-78); ALBUMIN 3.5 G/DL (3.4-5.0); ALBUMIN/GLOBULIN RATIO 0.7 (1.0-2.7); ALKALINE PHOSPHATASE 200 U/L (46-116); ASPARTATE AMINO TRANSFERASE 16 U/L (15-37); BILIRUBIN,TOTAL 0.5 MG/DL (0.2-1.0); CREATINE KINASE 82 U/L (26-308)
[2018-08-07 17:30] LABS: APPEARANCE,URINE SLIGHTLY CLOUDY; BILIRUBIN, URINE NEGATIVE (NEGATIVE); COLOR,URINE PALE YELLOW; GLUCOSE, URINE (UA) 4+ (NEGATIVE); KETONES,URINE 2+ (NEGATIVE); LEUKOCYTE ESTERASE ,URINE 3+ (NEGATIVE); NITRITE,URINE NEGATIVE (NEGATIVE); PH,URINE 6.5 (4.5-8.0); PROTEIN,URINE NEGATIVE (NEGATIVE); UROBILINOGEN,URINE NORMAL MG/DL (0.0-1.0)
[2018-08-07] MEDS ORDERED: Insulin Human Regular 100units/ml 3ml IV ONE (17:45)
--- NOTE | 2018-08-07 17:58 | NUR ---
ED Nurse Note: 10units of insulin given pt. bs checked before administration and the result is 'high". made aware
--- NOTE | 2018-08-07 18:22 | NUR ---
ED Nurse Note: ermd on bedside ddoing a procedure with the pt with deanna cagle.
--- NOTE | 2018-08-07 19:26 | NUR ---
ED Nurse Note: pt is admitted to the hospital report given to jeovanny cagle.
[2018-08-07] MEDS ORDERED: Hydromorphone 0.5mg/0.5ml inj IVP ONE (20:00)
--- NOTE | 2018-08-07 20:12 | NUR ---
ED Nurse Note: PT transferred to ICU, all belongings sent w/ pt, report was given previous shift by MINDA Rincon to MINDA Slater, endorsed care to Nohemy RN, pt vss, resp even and unlabored on RA, IV intact and patent. BS repeat was 363, Insulin drip was changed to 8unit per ERMD order.
--- NOTE | 2018-08-07 20:20 | NUR ---
NURSE NOTES: Received patient from ER via gurney accompanied by RN and tractor technician, admitted from home under the care of Dr. Mcintyre admitting diagnosis Sepsis, Hyperglycemia, and Bartholin cyst. Patient awake, alert oriented X4, able to verbalize needs to staff. No SOB oxygen saturation room air 100%. ST on cardiac catheterization technologist HR 109. Denies any pain or discomfort at this time, WEARING APPAREL PRESSER just gave Dilaudid IVP to patient. Skin warm and dry to touch. S/P I & D in ER with sterile packing on Left labia intact. IV line intact patient receiving Insulin drip at 8mls/hr. rechecked BS 234mg/dl. Instructed patient to use call light for assistance. Bed alarm on. Bed locked and in low position. Will Dr. Mcintyre for order.
--- NOTE | 2018-08-07 20:40 | NUR ---
NURSE NOTES: Dr. Diggs placed admission orders noted and carried out.
[2018-08-07] MEDS ORDERED: Insulin Human Regular 100units/ml 3ml IV PRN ×2 (20:45)
[2018-08-07] MEDS ORDERED: LORazepam Inj 2mg/ml 1ml IV PRN (20:45)
[2018-08-07] MEDS ORDERED: Insulin Rate Change 1 Each MISC PRN (20:45)
[2018-08-07] MEDS ORDERED: Miralax 17gm pkt ORAL PRN (20:45)
[2018-08-07] MEDS ORDERED: Albuterol/Ipratropium 3ml neb HHN PRN (20:45)
[2018-08-07] MEDS ORDERED: Nitroglycerin Subl 0.4mg tab SL PRN (20:45)
[2018-08-07] MEDS: Heparin 5000 units/ml inj SUBQ SCH (21:17)
--- NOTE | 2018-08-07 23:00 | NUR ---
NURSE NOTES: Patient in bed awake,alert watching TV, insulin drip at 1mls/unit Algorithm 3, no s/s of hypo/hyperglycemia. Hoffmann draining. NPO per Dr. Diggs. all needs attended promptly. Will continue plan of care.
[2018-08-07] MEDS: Morphine Sulfate 4mg/ml Inj (IV USE ONLY) IVP PRN (23:24)
[2018-08-08] VITALS (18 sets, daily range): BP systolic 99–149; BP diastolic 53–129
--- NOTE | 2018-08-08 02:00 | NUR ---
NURSE NOTES: Patient blood glucose 112mg/dl patient on Insulin drip Algorithm 3 at 2mls/hr. no s/s of acute distress noted. Call light within easy reach. Will continue plan of care.
--- NOTE | 2018-08-08 03:00 | NUR ---
NURSE NOTES: Blood glucose 77mg/dl turned off Insulin drip infusion will recheck blood glucose in 30 minutes per protocol, patient in bed playing games in her cellphone. Patient awake,alert no s/s of hypo/hyperglycemia. frequent visual checks continued. Addendum: 08/08/18 at 0416 by BETI MEZA RN RN blood glucose 76mg/dl
--- NOTE | 2018-08-08 03:30 | NUR ---
NURSE NOTES: Blood glucose 77mg/dl turned off Insulin drip infusion will recheck blood glucose in 30 minutes per protocol, patient in bed playing games in her cellphone. Patient awake,alert no s/s of hypo/hyperglycemia. frequent visual checks continued.
[2018-08-08] MEDS: Morphine Sulfate 4mg/ml Inj (IV USE ONLY) IVP PRN ×4 (04:00→18:41)
--- NOTE | 2018-08-08 04:07 | NUR ---
NURSE NOTES: Blood glucose 98mg/dl will follow protocol changed algorithm 3 to algorithm 2. Patient in bed watching TV. morphine 4mg IVP given for 8/10 left labia/vagina pain will continue to monitor. Patient complained of itching and called Dr. Diggs Bed bath given and changed linens and gown, applied lotion. call light within easy reach will continue to monitor patient.
[2018-08-08] MEDS ORDERED: Insulin Rate Change 1 Each MISC PRN (04:15)
--- NOTE | 2018-08-08 05:36 | NUR ---
NURSE NOTES: Patient refused blood draw offered 3 times explained the importance v/s risk and benefits still refused, per patient in am. Charge nurse aware.
--- NOTE | 2018-08-08 06:26 | NUR ---
NURSE NOTES: patient complained of vaginal itching and groin area kept clean and dry, instructed patient to avoid scratching to prevent skin breakdown, will follow up with MD.
--- NOTE | 2018-08-08 06:33 | NUR ---
NURSE NOTES: Dr. Diggs gave Benadryl order noted and carried out. patient aware
[2018-08-08] MEDS: DiphenhydrAMINE 50mg/ml Inj IVP PRN ×3 (06:47→21:35)
--- NOTE | 2018-08-08 07:15 | NUR ---
HAND-OFF: Report given to Radha PERLA. Patient in bed awake,alert watching TV. Denies any pain or discomfort. Call light within easy reach. Addendum: 08/08/18 at 0746 by BETI MEZA RN RN patient complained itching on groin area endorsed to follow with . left message to Dr. Diggs
--- NOTE | 2018-08-08 07:16 | NUR ---
NURSE NOTES: Received end of shift report from Nohemy PERLA. Pt is awake, alert, oriented x4, laying in bed in semi-hunter's position, watching TV. On room air with no respiratory distress, with O2sat 100%. Lung sounds are clear. equipment monitor phototypesetting displays NSR. Abdomen is round, nontender to touch, hypoactive bowel sounds present in all quadrants. Hoffmann catheter in place, draining clear/yellow urine. Peripheral IV access on right AC #20G, on insulin drip, algorythm II, with 1unit, and left AC #18G, infusing NS at 150ml/hour. Skin is intact. Pt is status post I&D on left labia for Bartholyn's Cyst. Pt reports pain on labia, is on Morphine Q4hrs Q4hrs. Will administer next dose as needed/ordered. Diet is NPO. Bed is locked, with two side rails up and call light within easy reach. Will continue with plan of care.
--- NOTE | 2018-08-08 08:00 | NUR ---
NURSE NOTES: BS checked, currently 115, per protocol, will continue on Algorithm 2, on 1unit/ml. Pt is tolerating well, with no s/s of hypo or hyperglycemia. Will continue to monitor.
[2018-08-08] MEDS: Heparin 5000 units/ml inj SUBQ SCH ×2 (08:22→21:15)
[2018-08-08 08:53] LABS: ANION GAP 10 mmol/L (5-15); BLOOD UREA NITROGEN 5 mg/dL (7-18); CALCIUM 8.2 MG/DL (8.5-10.1); CARBON DIOXIDE 23 MMOL/L (21-32); CHLORIDE 102 MMOL/L (98-107); CREATININE 0.7 MG/DL (0.55-1.30); SODIUM 135 MMOL/L (136-145)
[2018-08-08 08:56] LABS: ALANINE AMINOTRANSFERASE 17 U/L (12-78); ALKALINE PHOSPHATASE 143 U/L (46-116); ASPARTATE AMINO TRANSFERASE 18 U/L (15-37); BILIRUBIN,DIRECT 0.1 MG/DL (0.0-0.3); BILIRUBIN,TOTAL 0.4 MG/DL (0.2-1.0); PHOSPHORUS 2.3 MG/DL (2.5-4.9)
--- NOTE | 2018-08-08 09:00 | NUR ---
NURSE NOTES: Dr Saleem contacted and voicemail left regarding BMP results. Awaiting callback. Per protocol, next BS check Q4hrs. Pt is resting in stable condition, vital signs within normal limits, and no s/s of hypo/hyperglycemia noted.
--- NOTE | 2018-08-08 10:00 | NUR ---
NURSE NOTES: Spoke with Dr Saleem. Per MD order, insulin drip is discontinued, and instead replaced with Novolog 10units ACTID, SS resistant scale Novolog ACHS, Levemir 30units BID, Metformin 1gm PO BID. MD also informed regarding K=3.0 and order received for KDur PO 40meq and change of IV fluids to NS with 20meq at 100ml/hour. Order also received for Diabetic diet, and AM labs for tomorrow. Orders processed and will be followed.
[2018-08-08] MEDS ORDERED: NS w/KCl 20mEq 1,000 ML IV SCH (10:15)
[2018-08-08] MEDS ORDERED: Levemir Flexpen SUBQ SCH ×2 (11:00→18:00)
--- NOTE | 2018-08-08 11:00 | NUR ---
NURSE NOTES: Dr Mcintyre assessed pt at bedside, and order received to DC Hoffmann catheter and transfer pt to Tele. Also, assessed pt's vaginal area/left labia with MD. Order received to add Levaquin and Flagyl IV meds to treatment regimen. Will process and follow orders.
--- NOTE | 2018-08-08 11:01 | History & Physical ---
History and Physical History & Physicial Shree Mcintyre MD Aug 08, 2018 11:01
[2018-08-08] MEDS ORDERED: NovoLOG Insulin Flexpen SUBQ SCH ×2 (11:30→11:50)
--- NOTE | 2018-08-08 12:30 | NUR ---
NURSE NOTES: Pt is alert, sitting up in bed with lunch tray in front of her, watching TV. On room air with no respiratory distress, with O2sat 100%. industrial sales engineer displays NSR. Hoffmann catheter was DC'd at 1100 as ordered. Pt is ambulatory, however prefers bedpan if needed. Peripheral IV access on left AC#18G is infusing NS with 20meq KCL at 100mL/hour. Pt reports pain on labia, is on Morphine Q4hrs Q4hrs. Will administer next dose as needed/ordered. Vital signs are within normal range. Bed is locked, with two side rails up and call light within easy reach. Will continue with plan of care.
--- NOTE | 2018-08-08 15:00 | NUR ---
NURSE NOTES: Pt is asleep in semi-hunter's position, in stable condition. Vital signs are within normal range. Order in place to transfer pt to Tele. Awaiting for bed-availability.
[2018-08-08] MEDS: NS w/KCl 20mEq 1,000 ML IV SCH (15:45)
[2018-08-08] MEDS ORDERED: Nitroglycerin Subl 0.4mg tab SL PRN (15:45)
--- NOTE | 2018-08-08 16:00 | NUR ---
TRANSFER TO FLOOR: Pt was transferred to Tele [id number] from ICU BedB via hospital bed. ICU automatic edger was replaced with Tele-box, displays NSR. Pt was transferred in stable condition. Report given to Rupal PERLA. Pt's belonging's list checked and signed with the receiving nurse in front of the pt. Skin is intact. Endorsed plan of care.
[2018-08-08] MEDS ORDERED: LORazepam Inj 2mg/ml 1ml IV PRN (16:45)
[2018-08-08] MEDS ORDERED: Albuterol/Ipratropium 3ml neb HHN PRN (16:45)
[2018-08-08] MEDS ORDERED: metFORMIN 500mg tab ORAL SCH (18:00)
[2018-08-08] MEDS: metFORMIN 500mg tab ORAL SCH (18:37)
[2018-08-08] MEDS: NovoLOG Insulin Flexpen SUBQ SCH ×3 (18:39→21:14)
--- NOTE | 2018-08-08 19:30 | History and Physical Report ---
DATE OF ADMISSION: 08/07/2018 CHIEF COMPLAINT: Vaginal pain. HISTORY OF PRESENT ILLNESS: This is a 43-year-old very delightful female with past medical history significant for diabetes type 2, poorly controlled, history of abdominal hernia repair, who was presented to the hospital complaining about vaginal pain, 4/10 intensity. The patient was started on acyclovir and having a skin lesion. Stated that the swelling started about three days ago around the left side of vaginal area and felt feverish. Denies any nausea or vomiting. Her blood glucose level was noting more than 500, took 60 units of Humalog insulin, but her symptoms got progressively worsening. She decided to come to the emergency room. Shortly after initial evaluation in the emergency, the patient was noted to be elevated blood glucose level of 766 and subsequently was admitted to the hospital with DKA, with sodium of 124, with hyponatremia. Last menstrual period was July 08, 2018. PAST MEDICAL HISTORY/PAST SURGICAL HISTORY: As above, history of diabetes type 2, insulin dependent, history of hypertension, morbid obesity, and abdominal wall hernia, status post multiple surgery repair and revision. MEDICATIONS: At home is significant for amlodipine, promethazine DM, gabapentin, Lantus insulin 50 units b.i.d., and nystatin. ALLERGIES: No known drug allergies. SOCIAL HISTORY: Denies any smoking, alcohol, or drugs at this time. FAMILY HISTORY: Noncontributory. REVIEW OF SYSTEMS: Mostly as above. Denies any dysuria, frequency, or hematuria. Complaining about paravaginal pain. Denies any hemoptysis or hematochezia. Denies any suicidal or homicidal ideation. Denies any loss of consciousness. Denies any fall or head trauma. PHYSICAL EXAMINATION: VITAL SIGNS: On admission, temperature 98.8, pulse of 114, respirations 20, and blood pressure 134/92. GENERAL: The patient is awake, responsive, no acute distress. HEAD AND NECK: Pupils are equal and reactive to light. Anicteric. NECK: Supple. No JVD. LUNGS: Good air entry. No wheezes or rales. HEART: S1, S2. Regular rhythm. No murmur or gallops. ABDOMEN: Soft, nondistended, nontender, morbidly obese. Midline incision, ventral hernia incision was well healed noted. GENITOURINARY: On vagina, externally was noted to have tenderness on the upper labia majora and tender to touch a hard mass. The patient has a Hoffmann catheter. EXTREMITIES: No cyanosis, clubbing, or edema. PELVIC: Examination was performed externally only with the presence of the nurse in the room. NEUROLOGIC: Cranial nerves II through XII grossly intact. Motor is 5/5 in all extremities. Gait is intact. PSYCHIATRIC: Mood and affect is intact. LABORATORY DATA: Laboratory on admission from the ER, sodium 124, potassium 4.2, chloride 90, bicarb 20, BUN is 9, creatinine 1.3, glucose is 766. Lactic acid is 2.40, calcium is 9.8. AST of 16, ALT of 19, alkaline phosphatase of 200. First troponin 0.009. PT of 10, INR 1.0, PTT of 37. WBC of 11, hemoglobin of 14, hematocrit 45, platelet is 258. Urinalysis, +4 glucose, +2 ketone, +5 blood, wbc, +3 leukocytes. ASSESSMENT: 1. Hyperglycemia with DKA. 2. Bartholin's cyst in the left vaginal area. 3. Hypertension. 4. Hyponatremia. 5. Dehydration. 6. Morbid obesity. 7. Acute UTI. PLAN: Admit the patient to ICU. We will follow up with the ICU DKA protocol, broad-spectrum antibiotic with Levaquin and Flagyl. We will follow up with the cultures. Code status is Full Code. DVT prophylaxis, heparin subcutaneous. Follow up with Dr. Diggs from Pulmonary Critical Care and Dr. Saleem from Endocrine, aggressive IV hydration, insulin drip. Shree Mcintyre M.D. DR: GILBERTO JOB#: [id number] CC:
--- NOTE | 2018-08-08 19:48 | NUR ---
NURSE NOTES: Received pt. and report from MINDA Goldsmith. Observe pt. resting in bed and eating. Pt. is A/Ox4. surveillance system monitor is in placed, IV site intact, asymptomatic and patent; currently running NS w/ KCL 20 mEq @100cc/hr. Bed is in the lowest position and locked. Call light within reach. No signs/symptoms of acute distress noted at this time. Will continue plan of care.
--- NOTE | 2018-08-08 19:57 | NUR ---
HAND-OFF: Report given to YOGESH PERLA.
[2018-08-08] MEDS ORDERED: Miralax 17gm pkt ORAL PRN (20:45)
[2018-08-09] VITALS: BP 111/72
[2018-08-09] MEDS: Morphine Sulfate 4mg/ml Inj (IV USE ONLY) IVP PRN ×6 (00:16→22:31)
[2018-08-09] MEDS: NS w/KCl 20mEq 1,000 ML IV SCH ×3 (01:44→14:59)
--- NOTE | 2018-08-09 03:30 | Consultation ---
DATE OF CONSULTATION: 08/08/2018 ENDOCRINOLOGY CONSULTATION CONSULTING PHYSICIAN: Joseph Saleem M.D. REFERRING PHYSICIAN: Shree Mcintyre M.D. REASON FOR CONSULTATION: Diabetes control. HISTORY OF PRESENT ILLNESS: The patient is a 43-year-old female with history of diabetes for 10 years on a combination of insulin Lantus 50 units b.i.d. and metformin as an outpatient who presented to the hospital with elevated glucose and pain in the vaginal area. The patient was recently started on valacyclovir without any improvement. She does not have any skin lesions. She has difficulty walking and she felt feverish. Apparently the patient gave herself 60 units of Humalog and glucose did not improve. She usually takes 15 units of Humalog before each meal. She is feeling weak and she was found to be in diabetic ketoacidosis, admitted to the ICU for insulin drip therapy. While in the ICU, started on insulin drip about 7 units per hour and blood glucose up to 403 and then 1 unit per hour. The patient states she is very hungry, asking for food. She has not eaten for two days because her blood glucose was so elevated, she was afraid to eat. Potassium is low at 3.0. test was negative. PAST MEDICAL HISTORY: 1. Diabetes. 2. Obesity. PAST SURGICAL HISTORY: Hernia. SOCIAL HISTORY: The patient is a smoker. No alcohol or drug use. She lives at home. Last menstrual period is July 08, 2018. REVIEW OF SYSTEMS: As per history of present illness. MEDICATIONS: Reviewed and reconciled LABORATORY VALUES: WBC 11.9, hemoglobin 13, hematocrit 45, platelets 258. Sodium 135, potassium 3.9, chloride 102, bicarbonate 20, BUN 5, creatinine 0.7, glucose 118. Hemoglobin A1c 11.9. Lactic acid was elevated at 3.8 and dropped to 1.1. Lipase is low at 61. PHYSICAL EXAMINATION: VITAL SIGNS: Blood pressure is 103/53, pulse 79, temperature of 98.8, respiratory rate of 17. HEENT: Pupils are equal and reactive to light. Sclerae anicteric. NECK: No jugular venous distention. No thyromegaly. LUNGS: Clear. HEART: Regular rate and rhythm. ABDOMEN: Positive bowel sounds. Soft. EXTREMITIES: Trace edema. GENITOURINARY: Not done. DIAGNOSES: 1. Diabetic ketoacidosis with lactic acidosis, resolved. 2. Diabetes, out of control. 3. Bartholin cyst infected possibly. DISCUSSION: 1. Discontinue insulin drip since the patient is out of DKA. 2. Start Levemir 30 units times a day. 3. Start NovoLog 10 units before each meal. 4. Start diabetic diet. 5. Start Levemir insulin before each meal and at bedtime. 6. NovoLog sliding scale coverage. 7. Metformin 500 mg b.i.d. 8. Further adjustment according to blood glucose values. 9. The patient was transferred out of the ICU since she is no longer on insulin drip. Joseph Saleem M.D. DR: Macarena JOB#: [id number] CC: JAZZY
[2018-08-09 04:00] VITALS: BP 127/86
[2018-08-09] MEDS: DiphenhydrAMINE 50mg/ml Inj IVP PRN ×3 (04:26→18:15)
[2018-08-09] MEDS: NovoLOG Insulin Flexpen SUBQ SCH ×7 (06:22→21:00)
--- NOTE | 2018-08-09 06:34 | General Progress Note ---
Assessment/Plan Problem List: (1) Diabetes mellitus out of control ICD Codes: E11.65 - Type 2 diabetes mellitus with hyperglycemia SNOMED: 30091300, 274299178 (2) DKA (diabetic ketoacidosis) ICD Codes: E13.10 - Other specified diabetes mellitus with ketoacidosis without coma SNOMED: 474124020, 58350872 Qualifiers: Qualified Codes: E10.10 - Type 1 diabetes mellitus with ketoacidosis without coma (3) Bartholin cyst ICD Codes: N75.0 - Cyst of Bartholin's gland SNOMED: 81218481 (4) Hyperglycemia ICD Codes: R73.9 - Hyperglycemia, unspecified; L02.519 - Cutaneous abscess of unspecified hand SNOMED: 18623378, 5010780, 65853039 Assessment/Plan increase Levemir to 33 units bid continue Novolog 10 units ac tid continue Metformin 1000 mg bid continue NISS ac / hs Subjective Allergies: Coded Allergies: No Known Allergies (Unverified , 08/04/18) All Systems: reviewed and negative except above Subjective events noted Item Value Date Time Bedside Blood Glucose 221 mg/dl H 08/09/18 0623 Bedside Blood Glucose 260 mg/dl H 08/08/18 2114 Bedside Blood Glucose 242 mg/dl H 08/08/18 1840 Bedside Blood Glucose 222 mg/dl H 08/08/18 1212 Bedside Blood Glucose 115 mg/dl 08/08/18 0800 Bedside Blood Glucose 115 mg/dl 08/08/18 0600 Bedside Blood Glucose 112 mg/dl 08/08/18 0200 Objective Last 24 Hour Vital Signs Date Time Temp Pulse Resp B/P (MAP) Pulse Ox O2 Delivery O2 Flow Rate FiO2 08/09/18 04:00 85 08/09/18 04:00 97.4 75 18 127/86 (100) 99 08/09/18 00:00 97.8 89 17 111/72 (85) 99 08/09/18 00:00 78 08/08/18 20:00 95 08/08/18 20:00 Room Air 08/08/18 20:00 98.5 100 18 108/79 (89) 100 08/08/18 16:00 80 16 110/60 (77) 98 08/08/18 16:00 Room Air 08/08/18 15:20 84 08/08/18 15:00 82 12 99/58 (72) 96 08/08/18 14:00 79 12 111/65 (80) 08/08/18 13:48 98.7 08/08/18 13:00 96 13 113/70 (84) 08/08/18 12:00 98.1 75 13 119/57 (77) 08/08/18 12:00 89 08/08/18 12:00 Room Air 08/08/18 11:00 87 13 126/102 (110) 99 08/08/18 10:00 77 17 110/72 (85) 98 08/08/18 09:00 82 12 123/87 (99) 99 08/08/18 08:19 75 110/103 08/08/18 08:00 Room Air 08/08/18 08:00 98.8 79 17 103/53 (70) 96 08/08/18 07:28 78 08/08/18 07:00 90 14 145/103 (117) 98 Intake and Output 08/08/18 08/09/18 19:00 07:00 Intake Total 1643 ml 240 ml Output Total 370 ml Balance 1273 ml 240 ml Intake Oral 490 ml 240 ml IV Total 1153 ml Output Urine Total 370 ml # Voids 1 1 Laboratory Tests 08/08/18 08:22: Prothrombin Time 10.7, Prothromb Time International Ratio 1.0, Activated Partial Thromboplast Time 32, Sodium Level 135#L, Potassium Level 3.0L, Chloride Level 102, Carbon Dioxide Level 23, Anion Gap 10, Blood Urea Nitrogen 5L, Creatinine 0.7, Estimat Glomerular Filtration Rate > 60, Glucose Level 118#H , Hemoglobin A1c 11.9H, Calcium Level 8.2L, Phosphorus Level 2.3L, Total Bilirubin 0.4, Direct Bilirubin 0.1, Aspartate Amino Transf (AST/SGOT) 18, Alanine Aminotransferase (ALT/SGPT) 17, Alkaline Phosphatase 143H, Total Protein 6.9, Albumin 3.0L Height (Feet): 5 Height (Inches): 2.00 Weight (Pounds): 211 General Appearance: no apparent distress Neck: normal alignment Cardiovascular: normal rate Respiratory/Chest: lungs clear Abdomen: normal bowel sounds Pelvis: normal external exam Objective Current Medications Medications (Trade) Dose Ordered Sig/Greta Route PRN Reason Start Time Stop Time Status Last Admin Dose Admin Acetaminophen (Tylenol) 650 mg Q4H PRN ORAL Fever 08/08/18 16:45 09/06/18 20:44 Albuterol/ Ipratropium (Albuterol/ Ipratropium) 3 ml Q4H PRN HHN Shortness of Breath 08/08/18 16:45 08/12/18 20:44 Amlodipine Besylate (Norvasc) 5 mg DAILY ORAL 08/09/18 09:00 09/07/18 08:59 Dextrose (Dextrose 50%) 25 ml Q30M PRN IV Hypoglycemia 08/08/18 15:45 09/07/18 10:14 Dextrose (Dextrose 50%) 50 ml Q30M PRN IV Hypoglycemia 08/08/18 15:45 09/07/18 10:14 Diphenhydramine HCl (Benadryl) 25 mg Q6H PRN IVP Itching 08/08/18 18:45 09/07/18 06:44 08/09/18 04:26 Heparin Sodium (Porcine) (Heparin 5000 units/ml) 5,000 units EVERY 12 HOURS SUBQ 08/08/18 21:00 09/06/18 20:59 08/08/18 21:15 Insulin Aspart (NovoLOG) BEFORE MEALS AND HS SUBQ 08/08/18 16:30 09/07/18 11:29 08/09/18 06:23 Insulin Aspart (NovoLOG) 10 units NOVOTIAC SUBQ 08/08/18 16:50 09/07/18 11:49 08/09/18 06:22 Insulin Detemir (Levemir) 30 units BID SUBQ 08/08/18 18:00 09/07/18 10:59 Levofloxacin 100 ml @ 100 mls/hr Q24H IVPB 08/09/18 12:00 08/15/18 11:59 Lorazepam (Ativan 2mg/ml 1ml) 2 mg Q2H PRN IV agitation 08/08/18 16:45 08/14/18 20:44 Metformin HCl (Glucophage) 1,000 mg BID ORAL 08/08/18 18:00 09/07/18 17:59 08/08/18 18:37 Metronidazole 100 ml @ 100 mls/hr Q8HR IVPB 08/08/18 22:00 08/15/18 13:59 08/09/18 05:33 Morphine Sulfate (Morphine Sulfate) 4 mg Q4H PRN IVP Severe Pain (Pain Scale 7-10) 08/08/18 16:45 08/14/18 20:44 08/09/18 04:26 Nitroglycerin (Ntg) 0.4 mg Q5M PRN SL Prn Chest Pain 08/08/18 15:45 09/06/18 20:44 Ondansetron HCl (Zofran) 4 mg Q6H PRN IVP Nausea & Vomiting 08/08/18 20:45 09/06/18 20:44 Polyethylene Glycol (Miralax) 17 gm DAILYPRN PRN ORAL Constipation 08/08/18 20:45 09/06/18 20:44 Sodium Chloride 1,000 ml @ 100 mls/hr Q10H IV 08/08/18 15:45 09/07/18 10:14 08/09/18 01:44 Joseph Saleem MD Aug 09, 2018 06:34
--- NOTE | 2018-08-09 07:17 | NUR ---
HAND-OFF: Report given to MINDA Bob.
--- NOTE | 2018-08-09 07:27 | NUR ---
CASE MANAGEMENT:REVIEW 43 YR OLD FEMALE PRESENTED TO ER BY CC: PAINFUL LABIA ABSCESS SI: SEPSIS. DKA. BARTHOLIN'S CYST 98.8 114 20 134/92 94% ON RA WBC+11.9 GLUCOSE+766 NA-124 IS: 1L NS BOLUS IV CEFEPIME IV ZOFRAN IV DILAUDID' IV INSULIN INSULIN GTT : TO ICU INTERQUAL CRITERIA MET 08/09/18 SI: DM OOC. BARTHOLIN CYST 97.4 85 18 127/86 99% ON RA K-3.0 GLUCOSE+118 IS: IV LEVAQUIN Q24 IV FLAGYL Q8HRS IVF@100/HR NORVASC PO QD METFORMIN PO BID SS INSULIN AC+HS LEVEMIR SQ BID IV MORPHINE Q4HRS PRN : NOW ON TELEMETRY
--- NOTE | 2018-08-09 07:44 | NUR ---
NURSE NOTES: Received report from MINDA Andujar. Pt is sitting up in bed. Pt is complaining of 3/10 pain. Bed is in lowest position, side rails up X2, and call light is within reach. Will continue to monitor.
[2018-08-09 08:00] VITALS: BP 123/80
[2018-08-09] MEDS: metFORMIN 500mg tab ORAL SCH ×2 (08:41→18:15)
[2018-08-09] MEDS: Heparin 5000 units/ml inj SUBQ SCH ×2 (08:44→22:10)
[2018-08-09] MEDS ORDERED: Levemir Flexpen SUBQ SCH (09:00)
[2018-08-09 09:26] LABS: BASOPHILS % (AUTO) 0.9 % (0.0-2.0); EOSINOPHILS % (AUTO) 1.4 % (0.0-3.0); HEMOGLOBIN 12.5 G/DL (12.0-16.0); LYMPHOCYTES % (AUTO) 31.6 % (20.0-45.0); MEAN CORPUSCULAR VOLUME 84 FL (80-99); MONOCYTES % (AUTO) 6.2 % (1.0-10.0); NEUTROPHILS % (AUTO) 59.9 % (45.0-75.0); PLATELET COUNT 227 K/UL (150-450); RED BLOOD COUNT 4.62 M/UL (4.20-5.40); RED CELL DISTRIBUTION WIDTH 15.4 % (11.6-14.8); WHITE BLOOD COUNT 6.1 K/UL (4.8-10.8)
[2018-08-09 09:38] LABS: ANION GAP 7 mmol/L (5-15); BLOOD UREA NITROGEN 4 mg/dL (7-18); CARBON DIOXIDE 25 MMOL/L (21-32); CHLORIDE 102 MMOL/L (98-107); CREATININE 0.7 MG/DL (0.55-1.30); PHOSPHORUS 2.1 MG/DL (2.5-4.9); POTASSIUM 3.6 MMOL/L (3.5-5.1); SODIUM 134 MMOL/L (136-145)
--- NOTE | 2018-08-09 11:15 | NUR ---
NURSE NOTES: Patients states that she is in severe pain due to her cyst. She believes her cyst is coming back. Informed Dr. Mcintyre of this. Also informed Dr. Mcintyre about patients sodium and magnesium level. Awaiting orders.
--- NOTE | 2018-08-09 11:57 | Consultation ---
History of Present Illness General Date patient seen: Aug 09, 2018 Chief Complaint: Abnormal Labs Present Illness HPI 43 year old female with hx of DM presented to ER with swelling and pain around groin area, causing her having difficulty walking . She's also felt feverish. Her blood sugars have been difficult to control. It was over 500 on the day of admission. She was feeling weak, had difficulty walking yesterday. The pain in the labial area is severe (20/10), pressure and aching. Allergies: Coded Allergies: No Known Allergies (Unverified , 08/04/18) Medication History Scheduled Amlodipine Besylate* (Amlodipine Besylate*), 5 MG ORAL DAILY, (Reported) Gabapentin* (Gabapentin*), 300 MG ORAL THREE TIMES A DAY, (Reported) Insulin Glargine (Lantus), 50 UNITS SUBQ BID, (Reported) Nystatin* (Nystatin*), 1 APPLIC TOPIC THREE TIMES A DAY Scheduled PRN D-Methorphan Hb/Prometh Hcl* (Promethazine-Dm Syrup*), 5 ML ORAL Q6H PRN for For Cough Miscellaneous Medications [Admelog], Unknown Dose SUBQ, (Reported) Discontinued Medications Albuterol Sulfate* (Albuterol Sulfate Mdi*), 2 PUFF INH Q3H Discontinued Reason: Pt stopped taking med Fluconazole (Fluconazole), 100 MG ORAL DAILY Discontinued Reason: Pt stopped taking med Hydrocodone Bit/Acetaminophen 5-325* ([place] 5-325*), 1 TAB ORAL Q6H PRN for For Pain Discontinued Reason: Pt stopped taking med Ibuprofen* (Motrin*), 600 MG ORAL Q6H PRN for For Pain Discontinued Reason: Pt stopped taking med Metformin Hcl* (Metformin Hcl*), 1,000 MG ORAL BID, (Reported) Discontinued Reason: Pt stopped taking med Valacyclovir Hcl* (Valtrex*), 500 MG ORAL THREE TIMES A DAY Discontinued Reason: Therapy completed Patient History Healthcare decision maker Resuscitation status Full Code Advanced Directive on File No Past Medical/Surgical History Past Medical/Surgical History: (1) History of diabetes mellitus (2) Chronic calcific pancreatitis Review of Systems All Other Systems: negative except mentioned in HPI Physical Exam General Appearance: WD/WN, no apparent distress Lines, tubes and drains: peripheral HEENT: normocephalic, atraumatic Neck: non-tender, normal alignment, normal inspection Respiratory/Chest: chest wall non-tender, lungs clear Breasts: no masses Cardiovascular/Chest: normal peripheral pulses Abdomen: normal bowel sounds, soft Last 24 Hour Vital Signs Date Time Temp Pulse Resp B/P (MAP) Pulse Ox O2 Delivery O2 Flow Rate FiO2 08/09/18 09:00 Room Air 08/09/18 08:41 86 123/80 08/09/18 08:00 98.0 86 23 123/80 (94) 96 08/09/18 08:00 83 08/09/18 04:00 85 08/09/18 04:00 97.4 75 18 127/86 (100) 99 08/09/18 00:00 97.8 89 17 111/72 (85) 99 08/09/18 00:00 78 08/08/18 20:00 95 08/08/18 20:00 Room Air 08/08/18 20:00 98.5 100 18 108/79 (89) 100 08/08/18 16:00 80 16 110/60 (77) 98 08/08/18 16:00 Room Air 08/08/18 15:20 84 08/08/18 15:00 82 12 99/58 (72) 96 08/08/18 14:00 79 12 111/65 (80) 08/08/18 13:48 98.7 08/08/18 13:00 96 13 113/70 (84) 08/08/18 12:00 98.1 75 13 119/57 (77) 08/08/18 12:00 89 08/08/18 12:00 Room Air Intake and Output 08/08/18 08/09/18 18:59 06:59 Intake Total 1794 ml 240 ml Output Total 410 ml Balance 1384 ml 240 ml Intake Oral 490 ml 240 ml IV Total 1304 ml Output Urine Total 410 ml # Voids 1 1 Laboratory Tests Test 08/09/18 08:50 White Blood Count 6.1 K/UL (4.8-10.8) Red Blood Count 4.62 M/UL (4.20-5.40) Hemoglobin 12.5 G/DL (12.0-16.0) Hematocrit 39.0 % (37.0-47.0) Mean Corpuscular Volume 84 FL (80-99) Mean Corpuscular Hemoglobin 27.1 PG (27.0-31.0) Mean Corpuscular Hemoglobin Concent 32.2 G/DL (32.0-36.0) Red Cell Distribution Width 15.4 % (11.6-14.8) H Platelet Count 227 K/UL (150-450) Mean Platelet Volume 7.8 FL (6.5-10.1) Neutrophils (%) (Auto) 59.9 % (45.0-75.0) Lymphocytes (%) (Auto) 31.6 % (20.0-45.0) Monocytes (%) (Auto) 6.2 % (1.0-10.0) Eosinophils (%) (Auto) 1.4 % (0.0-3.0) Basophils (%) (Auto) 0.9 % (0.0-2.0) Sodium Level 134 MMOL/L (136-145) L Potassium Level 3.6 MMOL/L (3.5-5.1) Chloride Level 102 MMOL/L (98-107) Carbon Dioxide Level 25 MMOL/L (21-32) Anion Gap 7 mmol/L (5-15) Blood Urea Nitrogen 4 mg/dL (7-18) L Creatinine 0.7 MG/DL (0.55-1.30) Estimat Glomerular Filtration Rate > 60 mL/min (>60) Glucose Level 194 MG/DL (74-106) H Calcium Level 9.0 MG/DL (8.5-10.1) Phosphorus Level 2.1 MG/DL (2.5-4.9) L Magnesium Level 1.4 MG/DL (1.8-2.4) L Height (Feet): 5 Height (Inches): 2.00 Weight (Pounds): 216 Medications Current Medications Medications (Trade) Dose Ordered Sig/Greta Route PRN Reason Start Time Stop Time Status Last Admin Dose Admin Acetaminophen (Tylenol) 650 mg Q4H PRN ORAL Fever 08/08/18 16:45 09/06/18 20:44 Albuterol/ Ipratropium (Albuterol/ Ipratropium) 3 ml Q4H PRN HHN Shortness of Breath 08/08/18 16:45 08/12/18 20:44 Amlodipine Besylate (Norvasc) 5 mg DAILY ORAL 08/09/18 09:00 09/07/18 08:59 08/09/18 08:41 Dextrose (Dextrose 50%) 25 ml Q30M PRN IV Hypoglycemia 08/08/18 15:45 09/07/18 10:14 Dextrose (Dextrose 50%) 50 ml Q30M PRN IV Hypoglycemia 08/08/18 15:45 09/07/18 10:14 Diphenhydramine HCl (Benadryl) 25 mg Q6H PRN IVP Itching 08/08/18 18:45 09/07/18 06:44 08/09/18 04:26 Heparin Sodium (Porcine) (Heparin 5000 units/ml) 5,000 units EVERY 12 HOURS SUBQ 08/08/18 21:00 09/06/18 20:59 08/09/18 08:44 Insulin Aspart (NovoLOG) BEFORE MEALS AND HS SUBQ 08/08/18 16:30 09/07/18 11:29 08/09/18 06:23 Insulin Aspart (NovoLOG) 10 units NOVOTIAC SUBQ 08/08/18 16:50 09/07/18 11:49 08/09/18 06:22 Insulin Detemir (Levemir) 33 units BID SUBQ 08/09/18 09:00 09/07/18 10:59 08/09/18 08:53 Levofloxacin 100 ml @ 100 mls/hr Q24H IVPB 08/09/18 12:00 08/15/18 11:59 Lorazepam (Ativan 2mg/ml 1ml) 2 mg Q2H PRN IV agitation 08/08/18 16:45 08/14/18 20:44 Metformin HCl (Glucophage) 1,000 mg BID ORAL 08/08/18 18:00 09/07/18 17:59 08/09/18 08:41 Metronidazole 100 ml @ 100 mls/hr Q8HR IVPB 08/08/18 22:00 08/15/18 13:59 08/09/18 05:33 Morphine Sulfate (Morphine Sulfate) 4 mg Q4H PRN IVP Severe Pain (Pain Scale 7-10) 08/08/18 16:45 08/14/18 20:44 08/09/18 08:42 Nitroglycerin (Ntg) 0.4 mg Q5M PRN SL Prn Chest Pain 08/08/18 15:45 5/13/19 20:44 Ondansetron HCl (Zofran) 4 mg Q6H PRN IVP Nausea & Vomiting 08/08/18 20:45 09/06/18 20:44 Polyethylene Glycol (Miralax) 17 gm DAILYPRN PRN ORAL Constipation 08/08/18 20:45 09/06/18 20:44 Sodium Chloride 1,000 ml @ 100 mls/hr Q10H IV 08/08/18 15:45 09/07/18 10:14 08/09/18 01:44 Assessment/Plan Problem List: (1) Cellulitis ICD Codes: L03.90 - Cellulitis, unspecified SNOMED: 202126251 (2) Bartholin cyst ICD Codes: N75.0 - Cyst of Bartholin's gland SNOMED: 43863125 (3) Chronic calcific pancreatitis ICD Codes: K86.1 - Other chronic pancreatitis SNOMED: 754776118 (4) Diabetes mellitus out of control ICD Codes: E11.65 - Type 2 diabetes mellitus with hyperglycemia SNOMED: 79673617, 160093548 Assessment/Plan surgical follow up symptomatic treatment sliding scale diabetic diet analgesics dvt prophylaxis. Lavelle Diggs MD Aug 09, 2018 11:57
[2018-08-09 12:00] VITALS: BP 140/87
--- NOTE | 2018-08-09 14:04 | NUR ---
*-* INSURANCE *-* ALL CLINICALS, REVIEW HAVE BEEN FAXED TO: [employer] @ [phone] - JIMMY WILL HANDLE THIS ADMISSION [facility]: JIMMY P- [phone] F- [phone].............REVIEW/CLINICAL
[2018-08-09] MEDS ORDERED: Albuterol/Ipratropium 3ml neb HHN PRN (14:05)
[2018-08-09] MEDS ORDERED: Nitroglycerin Subl 0.4mg tab SL PRN (14:05)
[2018-08-09] MEDS ORDERED: LORazepam Inj 2mg/ml 1ml IV PRN (14:06)
[2018-08-09] MEDS ORDERED: Miralax 17gm pkt ORAL PRN (14:06)
--- NOTE | 2018-08-09 14:14 | NUR ---
NURSE NOTES: Patient arrived on the floor.
--- NOTE | 2018-08-09 14:30 | NUR ---
NURSE NOTES: Patients was transferred to Med surg per MD request. report given to Belongings at patients bed side. Signed belongings list in chart. Heart monitor removed and returned to [place]. pt stable at time of transfer
--- NOTE | 2018-08-09 14:53 | Consultation ---
History of Present Illness General Date patient seen: Aug 09, 2018 Reason for Hospitalization: Abnormal Labs Present Illness HPI 43 year old female with uncontrolled DM presented to ED complaining of groin pain. Was noted to have infected labia cyst/Bartholin gland cyst s/p I&D by ED physician. since doing well and admitted for care and management. was complaining that packing had fallen out and no longer draining. surgery called to evaluate. patient seen, chart reviewed, patient examined. currently afebrile, HD stable, leukocytosis resolved. no n/v/f/c Allergies: Coded Allergies: No Known Allergies (Unverified , 08/04/18) Medication History Scheduled Amlodipine Besylate* (Amlodipine Besylate*), 5 MG ORAL DAILY, (Reported) Gabapentin* (Gabapentin*), 300 MG ORAL THREE TIMES A DAY, (Reported) Insulin Glargine (Lantus), 50 UNITS SUBQ BID, (Reported) Nystatin* (Nystatin*), 1 APPLIC TOPIC THREE TIMES A DAY Scheduled PRN D-Methorphan Hb/Prometh Hcl* (Promethazine-Dm Syrup*), 5 ML ORAL Q6H PRN for For Cough Miscellaneous Medications [Admelog], Unknown Dose SUBQ, (Reported) Discontinued Medications Albuterol Sulfate* (Albuterol Sulfate Mdi*), 2 PUFF INH Q3H Discontinued Reason: Pt stopped taking med Fluconazole (Fluconazole), 100 MG ORAL DAILY Discontinued Reason: Pt stopped taking med Hydrocodone Bit/Acetaminophen 5-325* ([place] 5-325*), 1 TAB ORAL Q6H PRN for For Pain Discontinued Reason: Pt stopped taking med Ibuprofen* (Motrin*), 600 MG ORAL Q6H PRN for For Pain Discontinued Reason: Pt stopped taking med Metformin Hcl* (Metformin Hcl*), 1,000 MG ORAL BID, (Reported) Discontinued Reason: Pt stopped taking med Valacyclovir Hcl* (Valtrex*), 500 MG ORAL THREE TIMES A DAY Discontinued Reason: Therapy completed Patient History History Provided By: Patient, Medical Record, PMD Healthcare decision maker Resuscitation status Full Code Advanced Directive on File No Past Medical/Surgical History Past Medical/Surgical History: (1) Paronychia (2) Cellulitis and abscess of hand (3) Hypoglycemia (4) Ventral hernia (5) Abdominal pain (6) Hyperglycemia (7) DKA (diabetic ketoacidosis) (8) Bartholin cyst (9) Sepsis (10) Diabetes mellitus out of control (11) History of diabetes mellitus (12) Chronic calcific pancreatitis (13) Cellulitis Review of Systems Review of Symptoms General ROS: no weight loss or fever Psychological ROS: no depression or mood changes, no memory loss Ophthalmic ROS: no visual changes or eye irritation ENT ROS: no nasal congestion, hearing loss, dizziness Allergy and Immunology ROS: no allergic symptoms or urticaria Hematological and Lymphatic ROS: no swollen glands, unusual bleeding or bruising Endocrine ROS: no polyuria, polydipsia, weight changes, temperature intolerance Respiratory ROS: no cough, shortness of breath, or wheezing Cardiovascular ROS: no chest pain or dyspnea on exertion Gastrointestinal ROS: denies abdominal pain, no bright red blood in stool. Musculoskeletal ROS: no myalgias or arthralgias Neurological ROS: no TIA or stroke symptoms Dermatological ROS: no new or changing skin lesions, rashes or pruritis Physical Exam Physical Exam General appearance: alert, cooperative, no distress, appears stated age Head: Normocephalic, without obvious abnormality, atraumatic Eyes: conjunctivae/corneas clear. PERRL, EOM's intact. Fundi benign Throat: Lips, mucosa, and tongue normal. Teeth and gums normal Neck: supple, symmetrical, trachea midline, no adenopathy, thyroid: not enlarged, symmetric, no tenderness/mass/nodules, no carotid bruit and no JVD Lungs: clear to auscultation bilaterally Heart: regular rate and rhythm, S1, S2 normal, no murmur, click, rub or gallop Abdomen: soft, non-tender. Bowel sounds normal. No masses, no organomegaly Extremities: extremities normal, atraumatic, no cyanosis or edema Pulses: 2+ and symmetric Skin: Skin color, texture, turgor normal. No rashes or lesions Neurologic: Grossly normal Last 24 Hour Vital Signs Date Time Temp Pulse Resp B/P (MAP) Pulse Ox O2 Delivery O2 Flow Rate FiO2 08/09/18 12:00 98.2 84 22 140/87 (104) 96 08/09/18 09:00 Room Air 08/09/18 08:41 86 123/80 08/09/18 08:00 98.0 86 23 123/80 (94) 96 08/09/18 08:00 83 08/09/18 04:00 85 4/15/19 04:00 97.4 75 18 127/86 (100) 99 08/09/18 00:00 97.8 89 17 111/72 (85) 99 08/09/18 00:00 78 08/08/18 20:00 95 08/08/18 20:00 Room Air 08/08/18 20:00 98.5 100 18 108/79 (89) 100 08/08/18 16:00 80 16 110/60 (77) 98 08/08/18 16:00 Room Air 08/08/18 15:20 84 08/08/18 15:00 82 12 99/58 (72) 96 Intake and Output 08/08/18 08/09/18 18:59 06:59 Intake Total 1794 ml 240 ml Output Total 410 ml Balance 1384 ml 240 ml Intake Oral 490 ml 240 ml IV Total 1304 ml Output Urine Total 410 ml # Voids 1 1 Laboratory Tests Test 08/09/18 08:50 White Blood Count 6.1 K/UL (4.8-10.8) Red Blood Count 4.62 M/UL (4.20-5.40) Hemoglobin 12.5 G/DL (12.0-16.0) Hematocrit 39.0 % (37.0-47.0) Mean Corpuscular Volume 84 FL (80-99) Mean Corpuscular Hemoglobin 27.1 PG (27.0-31.0) Mean Corpuscular Hemoglobin Concent 32.2 G/DL (32.0-36.0) Red Cell Distribution Width 15.4 % (11.6-14.8) H Platelet Count 227 K/UL (150-450) Mean Platelet Volume 7.8 FL (6.5-10.1) Neutrophils (%) (Auto) 59.9 % (45.0-75.0) Lymphocytes (%) (Auto) 31.6 % (20.0-45.0) Monocytes (%) (Auto) 6.2 % (1.0-10.0) Eosinophils (%) (Auto) 1.4 % (0.0-3.0) Basophils (%) (Auto) 0.9 % (0.0-2.0) Sodium Level 134 MMOL/L (136-145) L Potassium Level 3.6 MMOL/L (3.5-5.1) Chloride Level 102 MMOL/L (98-107) Carbon Dioxide Level 25 MMOL/L (21-32) Anion Gap 7 mmol/L (5-15) Blood Urea Nitrogen 4 mg/dL (7-18) L Creatinine 0.7 MG/DL (0.55-1.30) Estimat Glomerular Filtration Rate > 60 mL/min (>60) Glucose Level 194 MG/DL (74-106) H Calcium Level 9.0 MG/DL (8.5-10.1) Phosphorus Level 2.1 MG/DL (2.5-4.9) L Magnesium Level 1.4 MG/DL (1.8-2.4) L Height (Feet): 5 Height (Inches): 2.00 Weight (Pounds): 216 Medications Current Medications Medications (Trade) Dose Ordered Sig/Greta Route PRN Reason Start Time Stop Time Status Last Admin Dose Admin Acetaminophen (Tylenol) 650 mg Q6H PRN ORAL Mild Pain/Temp > 100.5 08/09/18 14:04 09/08/18 14:03 Albuterol/ Ipratropium (Albuterol/ Ipratropium) 3 ml Q4H PRN HHN Shortness of Breath 08/09/18 14:05 08/14/18 14:04 Amlodipine Besylate (Norvasc) 5 mg DAILY ORAL 08/10/18 09:00 09/07/18 08:59 Dextrose (Dextrose 50%) 25 ml Q30M PRN IV Hypoglycemia 08/09/18 14:15 09/07/18 10:14 Dextrose (Dextrose 50%) 50 ml Q30M PRN IV Hypoglycemia 08/09/18 14:15 09/07/18 10:14 Diphenhydramine HCl (Benadryl) 25 mg Q6H PRN IVP Itching 08/09/18 14:05 09/08/18 14:04 Heparin Sodium (Porcine) (Heparin 5000 units/ml) 5,000 units EVERY 12 HOURS SUBQ 08/09/18 21:00 09/06/18 20:59 Insulin Aspart (NovoLOG) BEFORE MEALS AND HS SUBQ 08/09/18 16:30 09/07/18 11:29 Insulin Aspart (NovoLOG) 10 units NOVOTIAC SUBQ 08/09/18 16:50 09/07/18 11:49 Insulin Detemir (Levemir) 33 units BID SUBQ 08/09/18 18:00 09/07/18 10:59 Levofloxacin 100 ml @ 100 mls/hr Q24H IVPB 08/10/18 12:00 08/15/18 11:59 Lorazepam (Ativan 2mg/ml 1ml) 2 mg Q2H PRN IV agitation 08/09/18 14:06 08/16/18 14:05 Magnesium Oxide (Mag-Ox 400mg) 400 mg THREE TIMES A DAY ORAL 08/09/18 18:00 09/08/18 17:59 Metformin HCl (Glucophage) 1,000 mg BID ORAL 08/09/18 18:00 09/07/18 17:59 Metronidazole 100 ml @ 100 mls/hr Q8HR IVPB 08/09/18 22:00 08/16/18 21:59 Morphine Sulfate (Morphine Sulfate) 4 mg Q4H PRN IVP Severe Pain (Pain Scale 7-10) 08/09/18 14:06 08/16/18 14:05 Nitroglycerin (Ntg) 0.4 mg Q5M PRN SL Prn Chest Pain 08/09/18 14:05 09/06/18 20:44 Ondansetron HCl (Zofran) 4 mg Q6H PRN IVP Nausea & Vomiting 08/09/18 14:45 09/06/18 20:44 Polyethylene Glycol (Miralax) 17 gm DAILYPRN PRN ORAL Constipation 08/09/18 14:06 09/08/18 14:05 Sodium Chloride 1,000 ml @ 100 mls/hr Q10H IV 08/09/18 14:04 09/08/18 14:03 Assessment/Plan Problem List: (1) Bartholin cyst Assessment & Plan: infected bartholin cyst s/p I&D by ED physician. wound examined and seems to be resolving. minimal cellulitis no drainage no fluctuance mild tenderness on exam overall recovering no longer needs packing or dressing cont abx transition to oral for d/c outpatient [employer] follow up thank you will follow with recs. ICD Codes: N75.0 - Cyst of Bartholin's gland SNOMED: 29444727 (2) Cellulitis Assessment & Plan: see above exam performed with charge nurse at bedside. ICD Codes: L03.90 - Cellulitis, unspecified SNOMED: 154616132 (3) Hyperglycemia ICD Codes: R73.9 - Hyperglycemia, unspecified; L02.519 - Cutaneous abscess of unspecified hand SNOMED: 31147894, 9799294, 65139829 (4) DKA (diabetic ketoacidosis) ICD Codes: E13.10 - Other specified diabetes mellitus with ketoacidosis without coma SNOMED: 333227557, 53458363 Qualifiers: Qualified Codes: E10.10 - Type 1 diabetes mellitus with ketoacidosis without coma (5) Sepsis ICD Codes: A41.9 - Sepsis, unspecified organism SNOMED: 64718776 Qualifiers: Qualified Codes: A41.9 - Sepsis, unspecified organism (6) Diabetes mellitus out of control ICD Codes: E11.65 - Type 2 diabetes mellitus with hyperglycemia SNOMED: 82303289, 125944321 (7) History of diabetes mellitus ICD Codes: Z86.39 - Personal history of other endocrine, nutritional and metabolic disease SNOMED: 310603729 (8) Chronic calcific pancreatitis ICD Codes: K86.1 - Other chronic pancreatitis SNOMED: 063931481 (9) Paronychia SNOMED: 86612009 (10) Ventral hernia ICD Codes: K43.9 - Ventral hernia without obstruction or gangrene SNOMED: 531002546 (11) Hypoglycemia ICD Codes: E16.2 - Hypoglycemia, unspecified SNOMED: 650901847 (12) Abdominal pain ICD Codes: R10.9 - Unspecified abdominal pain SNOMED: 90844996 (13) Cellulitis and abscess of hand ICD Codes: L03.119 - Cellulitis of unspecified part of limb; L02.519 - Cutaneous abscess of unspecified hand SNOMED: 398706911, 6917403, 27427028 Lefty Meraz Aug 09, 2018 14:53
[2018-08-09 16:00] VITALS: BP 122/76
--- NOTE | 2018-08-09 16:43 | Internal Med Progress Note ---
Subjective Physician Name Shree Mcintyre Attending Physician Shree Mcintyre MD Current Medications Medications (Trade) Dose Ordered Sig/Greta Route PRN Reason Start Time Stop Time Status Last Admin Dose Admin Acetaminophen (Tylenol) 650 mg Q6H PRN ORAL Mild Pain/Temp > 100.5 08/09/18 14:04 09/08/18 14:03 Albuterol/ Ipratropium (Albuterol/ Ipratropium) 3 ml Q4H PRN HHN Shortness of Breath 08/09/18 14:05 08/14/18 14:04 Amlodipine Besylate (Norvasc) 5 mg DAILY ORAL 08/10/18 09:00 09/07/18 08:59 Dextrose (Dextrose 50%) 25 ml Q30M PRN IV Hypoglycemia 08/09/18 14:15 09/07/18 10:14 Dextrose (Dextrose 50%) 50 ml Q30M PRN IV Hypoglycemia 08/09/18 14:15 09/07/18 10:14 Diphenhydramine HCl (Benadryl) 25 mg Q6H PRN IVP Itching 08/09/18 14:05 09/08/18 14:04 Heparin Sodium (Porcine) (Heparin 5000 units/ml) 5,000 units EVERY 12 HOURS SUBQ 08/09/18 21:00 09/06/18 20:59 Insulin Aspart (NovoLOG) BEFORE MEALS AND HS SUBQ 08/09/18 16:30 09/07/18 11:29 Insulin Aspart (NovoLOG) 10 units NOVOTIAC SUBQ 08/09/18 16:50 09/07/18 11:49 Insulin Detemir (Levemir) 33 units BID SUBQ 08/09/18 18:00 09/07/18 10:59 Levofloxacin 100 ml @ 100 mls/hr Q24H IVPB 08/10/18 12:00 08/15/18 11:59 Lorazepam (Ativan 2mg/ml 1ml) 2 mg Q2H PRN IV agitation 08/09/18 14:06 08/16/18 14:05 Magnesium Oxide (Mag-Ox 400mg) 400 mg THREE TIMES A DAY ORAL 08/09/18 18:00 09/08/18 17:59 Metformin HCl (Glucophage) 1,000 mg BID ORAL 08/09/18 18:00 09/07/18 17:59 Metronidazole 100 ml @ 100 mls/hr Q8HR IVPB 08/09/18 22:00 08/16/18 21:59 Morphine Sulfate (Morphine Sulfate) 4 mg Q4H PRN IVP Severe Pain (Pain Scale 7-10) 08/09/18 14:06 08/16/18 14:05 Nitroglycerin (Ntg) 0.4 mg Q5M PRN SL Prn Chest Pain 08/09/18 14:05 09/06/18 20:44 Ondansetron HCl (Zofran) 4 mg Q6H PRN IVP Nausea & Vomiting 08/09/18 14:45 09/06/18 20:44 Polyethylene Glycol (Miralax) 17 gm DAILYPRN PRN ORAL Constipation 08/09/18 14:06 09/08/18 14:05 Sodium Chloride 1,000 ml @ 100 mls/hr Q10H IV 08/09/18 14:04 09/08/18 14:03 08/09/18 14:59 Allergies: Coded Allergies: No Known Allergies (Unverified , 08/04/18) Subjective Awake, alert, responsive, no acute distress, sitting up in a chair. Objective Last Vital Signs Date Time Temp Pulse Resp B/P (MAP) Pulse Ox O2 Delivery O2 Flow Rate FiO2 08/09/18 12:00 98.2 84 22 140/87 (104) 96 08/09/18 09:00 Room Air Laboratory Tests Test 08/09/18 08:50 White Blood Count 6.1 K/UL (4.8-10.8) Red Blood Count 4.62 M/UL (4.20-5.40) Hemoglobin 12.5 G/DL (12.0-16.0) Hematocrit 39.0 % (37.0-47.0) Mean Corpuscular Volume 84 FL (80-99) Mean Corpuscular Hemoglobin 27.1 PG (27.0-31.0) Mean Corpuscular Hemoglobin Concent 32.2 G/DL (32.0-36.0) Red Cell Distribution Width 15.4 % (11.6-14.8) H Platelet Count 227 K/UL (150-450) Mean Platelet Volume 7.8 FL (6.5-10.1) Neutrophils (%) (Auto) 59.9 % (45.0-75.0) Lymphocytes (%) (Auto) 31.6 % (20.0-45.0) Monocytes (%) (Auto) 6.2 % (1.0-10.0) Eosinophils (%) (Auto) 1.4 % (0.0-3.0) Basophils (%) (Auto) 0.9 % (0.0-2.0) Sodium Level 134 MMOL/L (136-145) L Potassium Level 3.6 MMOL/L (3.5-5.1) Chloride Level 102 MMOL/L (98-107) Carbon Dioxide Level 25 MMOL/L (21-32) Anion Gap 7 mmol/L (5-15) Blood Urea Nitrogen 4 mg/dL (7-18) L Creatinine 0.7 MG/DL (0.55-1.30) Estimat Glomerular Filtration Rate > 60 mL/min (>60) Glucose Level 194 MG/DL (74-106) H Calcium Level 9.0 MG/DL (8.5-10.1) Phosphorus Level 2.1 MG/DL (2.5-4.9) L Magnesium Level 1.4 MG/DL (1.8-2.4) L Microbiology Date/Time Source Procedure Growth Status 08/07/18 17:00 Vaginal Gram Stain - Final Resulted 08/07/18 17:00 Wound Culture - Preliminary Streptococcus Group B Usual Vaginal Marisa Resulted 08/07/18 19:00 Nasal Nares MRSA Culture - Final Staphylococcus Aureus - Mrsa Complete 08/07/18 17:20 Urine,Clean Catch Urine Culture - Preliminary Resulted 08/07/18 19:00 Rectum VRE Culture - Final Enterococcus Faecium - Vre Resulted 08/07/18 19:00 Rectum Pending Resulted Intake and Output 08/08/18 08/09/18 18:59 06:59 Intake Total 1794 ml 240 ml Output Total 410 ml Balance 1384 ml 240 ml Intake Oral 490 ml 240 ml IV Total 1304 ml Output Urine Total 410 ml # Voids 1 1 Objective GENERAL: awake, responsive, no acute distress. HEAD AND NECK: Pupils are equal and reactive to light. Anicteric. NECK: Supple. No JVD. LUNGS: Good air entry. No wheezes or rales. HEART: S1, S2. Regular rhythm. No murmur or gallops. ABDOMEN: Soft, nondistended, nontender, morbidly obese. Midline incision, ventral hernia incision was well healed noted. EXTREMITIES: No cyanosis, clubbing, or edema. NEUROLOGIC: Cranial nerves II through XII grossly intact. Motor is 5/5 in all extremities. Gait is intact. PSYCHIATRIC: Mood and affect is intact. Assessment/Plan Assessment/Plan 1. Hyperglycemia with DKA. 2. Bartholin's cyst in the left vaginal area. 3. Hypertension. 4. Hyponatremia. 5. Dehydration. 6. Morbid obesity. 7. Acute UTI. PLAN: DC telemetry transferred to medical floor. Broad-spectrum antibiotic with Levaquin and Flagyl. Follow up with the labs and cultures. Code status is Full Code. DVT prophylaxis: heparin subcutaneous. Dr. Diggs from Pulmonary Critical Dr. Saleem from Endocrine, Shree Mcintyre MD Aug 09, 2018 16:43
[2018-08-09] MEDS ORDERED: Magnesium Oxide 400mg tab ORAL SCH (18:00)
[2018-08-09] MEDS: Magnesium Oxide 400mg tab ORAL SCH (18:14)
[2018-08-09] MEDS: Levemir Flexpen SUBQ SCH (18:16)
--- NOTE | 2018-08-09 19:47 | NUR ---
HAND-OFF: Report given to MINDA Shipman.
[2018-08-09 20:00] VITALS: BP 105/73
--- NOTE | 2018-08-09 23:29 | NUR ---
NURSE NOTES: Received patient in bed, resting, complained of throbbing pain 7/10 in the lower vaginal area. Patient has an 24g IV on her right hand, intact, no s/s of infiltration or redness. Bed at the lowest position, bed alarms active, side rails up x2, call light within reach. Will continue to monitor.
[2018-08-10] VITALS: BP 107/45
[2018-08-10] MEDS: NS w/KCl 20mEq 1,000 ML IV SCH ×2 (00:04→10:04)
[2018-08-10] MEDS: DiphenhydrAMINE 50mg/ml Inj IVP PRN ×2 (00:23→06:47)
[2018-08-10] MEDS: Morphine Sulfate 4mg/ml Inj (IV USE ONLY) IVP PRN ×2 (02:40→06:47)
[2018-08-10 04:20] VITALS: BP 112/74
[2018-08-10 06:05] LABS: ANION GAP 8 mmol/L (5-15); BLOOD UREA NITROGEN 6 mg/dL (7-18); CALCIUM 8.6 MG/DL (8.5-10.1); CARBON DIOXIDE 26 MMOL/L (21-32); CHLORIDE 100 MMOL/L (98-107); CREATININE 0.6 MG/DL (0.55-1.30); POTASSIUM 4.4 MMOL/L (3.5-5.1); SODIUM 134 MMOL/L (136-145)
[2018-08-10] MEDS: NovoLOG Insulin Flexpen SUBQ SCH ×4 (06:41→12:33)
--- NOTE | 2018-08-10 07:42 | NUR ---
HAND-OFF: Report given to MINDA Gonzalez.
--- NOTE | 2018-08-10 07:45 | NUR ---
NURSE NOTES: Received from [facility] sh[facility] with no IV. Patient states that her left labia area hurts s/s I&D. No s/s of infection , no swelling or discharge @ this time. open to air. Will follow up with IV insertion, call light and personnel items within reach. Will continue to monitor.
[2018-08-10 08:00] VITALS: BP 143/90
[2018-08-10] MEDS: Levemir Flexpen SUBQ SCH (09:00)
[2018-08-10] MEDS: Heparin 5000 units/ml inj SUBQ SCH ×2 (09:00→10:19)
--- NOTE | 2018-08-10 09:35 | NUR ---
NURSE NOTES: Two RN's tried IV insertion but unsuccessful. Patient does not want IV insertion but asking for an PICC line insertion stating that " I know what PICC line is and I had one before. Put PICC line." RN is waiting for Dr. Diggs to call back.
[2018-08-10] MEDS ORDERED: Lidocaine 1% Plain 30 ml INJ PRN (09:45)
[2018-08-10] MEDS ORDERED: Heparin1,000 units/500ml Premix(Conc:2 units/ml) IV PRN (09:45)
[2018-08-10] MEDS: Magnesium Oxide 400mg tab ORAL SCH ×2 (10:17→12:50)
[2018-08-10] MEDS: metFORMIN 500mg tab ORAL SCH (10:18)
--- NOTE | 2018-08-10 10:20 | NUR ---
NURSE NOTES: Offered heparin but patient refused x3. Patient's blood sugar is 77mg/dl asymptomatic patient refused levemir. RN re-educated about med and it is not short acting insulin and it is not going to effect soon. But patient started yelling @ RN " Blood sugar is 77. I do not need it." Rn explained the risks and benefits.
--- NOTE | 2018-08-10 10:20 | Pulmonology Progress Note ---
Assessment/Plan Problems: (1) Cellulitis (2) Bartholin cyst (3) Chronic calcific pancreatitis (4) Diabetes mellitus out of control Assessment/Plan improving continue current treatment symptomatic treatment. Subjective ROS Limited/Unobtainable: No Constitutional: Reports: no symptoms HEENT: Repors: no symptoms Allergies: Coded Allergies: No Known Allergies (Unverified , 08/04/18) Objective Last 24 Hour Vital Signs Date Time Temp Pulse Resp B/P (MAP) Pulse Ox O2 Delivery O2 Flow Rate FiO2 08/10/18 08:00 98.4 93 20 143/90 (107) 98 08/10/18 04:20 98.3 92 20 112/74 (87) 96 92 08/10/18 00:00 98.5 88 16 107/45 (65) 99 08/09/18 21:00 Room Air 08/09/18 20:00 98.3 84 16 105/73 (84) 96 08/09/18 16:00 98.2 86 20 122/76 (91) 95 08/09/18 12:00 98.2 84 22 140/87 (104) 96 Intake and Output 08/09/18 08/10/18 19:00 07:00 Intake Total 300 ml 1100 ml Balance 300 ml 1100 ml IV Total 300 ml 1100 ml # Voids 2 General Appearance: WD/WN HEENT: normocephalic, atraumatic Respiratory/Chest: chest wall non-tender, lungs clear Cardiovascular: normal peripheral pulses, normal rate Abdomen: normal bowel sounds, no organomegaly Genitourinary: normal external genitalia Skin: no rash Microbiology Date/Time Source Procedure Growth Status 08/07/18 17:00 Vaginal Gram Stain - Final Complete 08/07/18 17:00 Wound Culture - Final Streptococcus Group B Usual Vaginal Marisa Complete 08/07/18 19:00 Nasal Nares MRSA Culture - Final Staphylococcus Aureus - Mrsa Complete 08/07/18 17:20 Urine,Clean Catch Urine Culture - Preliminary Staphylococcus Aureus Streptococcus Species Resulted 08/07/18 19:00 Rectum VRE Culture - Final Enterococcus Faecium - Vre Complete 08/07/18 19:00 Rectum - Final NO CARBAPENEM-RESISTANT ENTEROBACTERI... Complete Laboratory Tests 08/10/18 05:20: Sodium Level 134L, Potassium Level 4.4, Chloride Level 100, Carbon Dioxide Level 26, Anion Gap 8, Blood Urea Nitrogen 6L, Creatinine 0.6, Estimat Glomerular Filtration Rate > 60, Glucose Level 168H, Calcium Level 8.6, Magnesium Level 1.7L Current Medications Medications (Trade) Dose Ordered Sig/Great Route PRN Reason Start Time Stop Time Status Last Admin Dose Admin Acetaminophen (Tylenol) 650 mg Q6H PRN ORAL Mild Pain/Temp > 100.5 08/09/18 14:04 09/08/18 14:03 Albuterol/ Ipratropium (Albuterol/ Ipratropium) 3 ml Q4H PRN HHN Shortness of Breath 08/09/18 14:05 08/14/18 14:04 Amlodipine Besylate (Norvasc) 5 mg DAILY ORAL 08/10/18 09:00 09/07/18 08:59 Chlorhexidine Gluconate (Hetal-Hex 2%) 1 applic DAILY@2000 TOPIC 08/10/18 20:00 09/09/18 19:59 Dextrose (Dextrose 50%) 25 ml Q30M PRN IV Hypoglycemia 08/09/18 14:15 09/07/18 10:14 Dextrose (Dextrose 50%) 50 ml Q30M PRN IV Hypoglycemia 08/09/18 14:15 09/07/18 10:14 Diphenhydramine HCl (Benadryl) 25 mg Q6H PRN IVP Itching 08/09/18 14:05 09/08/18 14:04 08/10/18 06:47 Heparin Sodium (Porcine) (Heparin 5000 units/ml) 5,000 units EVERY 12 HOURS SUBQ 08/09/18 21:00 09/06/18 20:59 08/09/18 22:10 Heparin Sodium/ Sodium Chloride (Heparin 1000 units/500ml Premix) 1,000 unit ONCE PRN IV PICC 08/10/18 09:45 08/10/18 23:59 Insulin Aspart (NovoLOG) BEFORE MEALS AND HS SUBQ 08/09/18 16:30 09/07/18 11:29 08/10/18 06:41 Insulin Aspart (NovoLOG) 10 units NOVOTIAC SUBQ 08/09/18 16:50 09/07/18 11:49 08/10/18 06:42 Insulin Detemir (Levemir) 33 units BID SUBQ 08/09/18 18:00 09/07/18 10:59 08/09/18 18:16 Levofloxacin 100 ml @ 100 mls/hr Q24H IVPB 08/10/18 12:00 08/15/18 11:59 Lidocaine HCl (Xylocaine 1% 30ml) 30 ml ONCE PRN INJ PICC 08/10/18 09:45 08/10/18 23:59 Lorazepam (Ativan 2mg/ml 1ml) 2 mg Q2H PRN IV agitation 08/09/18 14:06 08/16/18 14:05 Magnesium Oxide (Mag-Ox 400mg) 400 mg THREE TIMES A DAY ORAL 08/09/18 18:00 09/08/18 17:59 08/09/18 18:14 Metformin HCl (Glucophage) 1,000 mg BID ORAL 08/09/18 18:00 09/07/18 17:59 08/09/18 18:15 Metronidazole 100 ml @ 100 mls/hr Q8HR IVPB 08/09/18 22:00 08/16/18 21:59 08/10/18 06:46 Morphine Sulfate (Morphine Sulfate) 4 mg Q4H PRN IVP Severe Pain (Pain Scale 7-10) 08/09/18 14:06 08/16/18 14:05 08/10/18 06:47 Nitroglycerin (Ntg) 0.4 mg Q5M PRN SL Prn Chest Pain 08/09/18 14:05 09/06/18 20:44 Ondansetron HCl (Zofran) 4 mg Q6H PRN IVP Nausea & Vomiting 08/09/18 14:45 09/06/18 20:44 Polyethylene Glycol (Miralax) 17 gm DAILYPRN PRN ORAL Constipation 08/09/18 14:06 09/08/18 14:05 Sodium Chloride 1,000 ml @ 100 mls/hr Q10H IV 08/09/18 14:04 09/08/18 14:03 08/10/18 00:04 Lavelle Diggs MD Aug 10, 2018 10:20
[2018-08-10] MEDS ORDERED: METRONIDAZOLE500 MG ORAL (10:25)
[2018-08-10] MEDS ORDERED: LEVEMIR FL100 UNIT/1 SUBQ (10:25)
[2018-08-10] MEDS ORDERED: GLUCOPHAGE500 MG ORAL (10:25)
[2018-08-10] MEDS ORDERED: BENADRYL25 M3 PO (10:27)
[2018-08-10] MEDS ORDERED: KENALOG IN ORABA1 EA APPLIC (10:27)
--- NOTE | 2018-08-10 10:34 | NUR ---
NURSE NOTES: Seen by Dr. Diggs with discharge order.
--- NOTE | 2018-08-10 10:48 | NUR ---
NURSE NOTES: Patient says her ride will be available 12:30pm for discharge.
--- NOTE | 2018-08-10 11:30 | NUR ---
NURSE NOTES: Patient states that her ride will be available around 3pm . Rn offered taxi voucher but patient stated that she has no home mah[place]. Her will get off from his work @3pm. will follow up. Addendum: 08/10/18 at 1255 by JANIS KENDRICK RN TONA kelly
[2018-08-10 12:00] VITALS: BP 111/60
--- NOTE | 2018-08-10 12:39 | Surgery Progress Note ---
Surgery Progress Note Subjective Additional Comments glu better controlled. no n/v/f/c. labs okay. states still mild discomfort in labial area but improved since admission. no drainage Objective Last 24 Hour Vital Signs Date Time Temp Pulse Resp B/P (MAP) Pulse Ox O2 Delivery O2 Flow Rate FiO2 08/10/18 10:17 93 143/90 08/10/18 09:00 Room Air 08/10/18 08:00 98.4 93 20 143/90 (107) 98 08/10/18 04:20 98.3 92 20 112/74 (87) 96 92 08/10/18 00:00 98.5 88 16 107/45 (65) 99 08/09/18 21:00 Room Air 08/09/18 20:00 98.3 84 16 105/73 (84) 96 08/09/18 16:00 98.2 86 20 122/76 (91) 95 I&O Intake and Output 08/09/18 08/10/18 19:00 07:00 Intake Total 300 ml 1100 ml Balance 300 ml 1100 ml IV Total 300 ml 1100 ml # Voids 2 Dressing: dry Wound: other Drains: other Cardiovascular: RSR Respiratory: clear Abdomen: non-tender, present bowel sounds Extremities: no tenderness, no cyanosis Laboratory Tests Test 08/10/18 05:20 Sodium Level 134 MMOL/L (136-145) L Potassium Level 4.4 MMOL/L (3.5-5.1) Chloride Level 100 MMOL/L (98-107) Carbon Dioxide Level 26 MMOL/L (21-32) Anion Gap 8 mmol/L (5-15) Blood Urea Nitrogen 6 mg/dL (7-18) L Creatinine 0.6 MG/DL (0.55-1.30) Estimat Glomerular Filtration Rate > 60 mL/min (>60) Glucose Level 168 MG/DL (74-106) H Calcium Level 8.6 MG/DL (8.5-10.1) Magnesium Level 1.7 MG/DL (1.8-2.4) L Plan Problems: (1) Bartholin cyst Assessment & Plan: infected bartholin cyst s/p I&D by ED physician. wound examined and seems to be resolving. minimal cellulitis no drainage no fluctuance mild tenderness on exam overall recovering no longer needs packing or dressing cont abx transition to oral for d/c outpatient [employer] follow up thank you will follow with recs. (2) Cellulitis (3) Hyperglycemia (4) DKA (diabetic ketoacidosis) (5) Sepsis (6) Diabetes mellitus out of control (7) History of diabetes mellitus (8) Chronic calcific pancreatitis (9) Paronychia (10) Ventral hernia (11) Hypoglycemia (12) Abdominal pain (13) Cellulitis and abscess of hand Lefty Meraz Aug 10, 2018 12:39
--- NOTE | 2018-08-10 13:04 | NUR ---
NURSE NOTES: Patient has no IV access, unable to administer flagyl IV. Dr. Diggs order one time po 500mg. Order read back and carried out.
[2018-08-10] MEDS ORDERED: metroNIDAZOLE 500mg tab ORAL SCH (13:06)
--- NOTE | 2018-08-10 13:52 | NUR ---
*-* INSURANCE *-* ALL CLINICALS HAVE BEEN FAXED TO: [employer] @ [phone] - JIMMY WILL HANDLE THIS ADMISSION NCM: JIMMY P- [phone] F- [phone].............REVIEW/CLINICAL
--- NOTE | 2018-08-10 15:30 | NUR ---
NURSE NOTES: Patient requested for taxi voucher. RN followed up with greenhouse superintendent. Will follow up. Skin assessment done, no s/s of infection on left labia majora I&D site, no swelling or rash. No discharge.
--- NOTE | 2018-08-10 15:57 | Internal Med Progress Note ---
Subjective Date of Service: Aug 10, 2018 Physician Name Marshal Gilbert Attending Physician Shree Mcintyre MD Current Medications Medications (Trade) Dose Ordered Sig/Greta Route PRN Reason Start Time Stop Time Status Last Admin Dose Admin Acetaminophen (Tylenol) 650 mg Q6H PRN ORAL Mild Pain/Temp > 100.5 08/09/18 14:04 09/08/18 14:03 Albuterol/ Ipratropium (Albuterol/ Ipratropium) 3 ml Q4H PRN HHN Shortness of Breath 08/09/18 14:05 08/14/18 14:04 Amlodipine Besylate (Norvasc) 5 mg DAILY ORAL 08/10/18 09:00 09/07/18 08:59 08/10/18 10:17 Chlorhexidine Gluconate (Hetal-Hex 2%) 1 applic DAILY@2000 TOPIC 08/10/18 20:00 09/09/18 19:59 Dextrose (Dextrose 50%) 25 ml Q30M PRN IV Hypoglycemia 08/09/18 14:15 09/07/18 10:14 Dextrose (Dextrose 50%) 50 ml Q30M PRN IV Hypoglycemia 08/09/18 14:15 09/07/18 10:14 Diphenhydramine HCl (Benadryl) 25 mg Q6H PRN IVP Itching 08/09/18 14:05 09/08/18 14:04 08/10/18 06:47 Heparin Sodium (Porcine) (Heparin 5000 units/ml) 5,000 units EVERY 12 HOURS SUBQ 08/09/18 21:00 09/06/18 20:59 08/09/18 22:10 Heparin Sodium/ Sodium Chloride (Heparin 1000 units/500ml Premix) 1,000 unit ONCE PRN IV PICC 08/10/18 09:45 08/10/18 23:59 Insulin Aspart (NovoLOG) BEFORE MEALS AND HS SUBQ 08/09/18 16:30 09/07/18 11:29 08/10/18 12:33 Insulin Aspart (NovoLOG) 10 units NOVOTIAC SUBQ 08/09/18 16:50 09/07/18 11:49 08/10/18 06:42 Insulin Detemir (Levemir) 33 units BID SUBQ 08/09/18 18:00 09/07/18 10:59 08/09/18 18:16 Levofloxacin 100 ml @ 100 mls/hr Q24H IVPB 08/10/18 12:00 08/15/18 11:59 Lidocaine HCl (Xylocaine 1% 30ml) 30 ml ONCE PRN INJ PICC 08/10/18 09:45 08/10/18 23:59 Lorazepam (Ativan 2mg/ml 1ml) 2 mg Q2H PRN IV agitation 08/09/18 14:06 08/16/18 14:05 Magnesium Oxide (Mag-Ox 400mg) 400 mg THREE TIMES A DAY ORAL 08/09/18 18:00 09/08/18 17:59 08/10/18 12:50 Metformin HCl (Glucophage) 1,000 mg BID ORAL 08/09/18 18:00 09/07/18 17:59 08/10/18 10:18 Metronidazole 100 ml @ 100 mls/hr Q8HR IVPB 08/09/18 22:00 08/16/18 21:59 08/10/18 06:46 Morphine Sulfate (Morphine Sulfate) 4 mg Q4H PRN IVP Severe Pain (Pain Scale 7-10) 08/09/18 14:06 08/16/18 14:05 08/10/18 06:47 Nitroglycerin (Ntg) 0.4 mg Q5M PRN SL Prn Chest Pain 08/09/18 14:05 09/06/18 20:44 Ondansetron HCl (Zofran) 4 mg Q6H PRN IVP Nausea & Vomiting 08/09/18 14:45 09/06/18 20:44 Polyethylene Glycol (Miralax) 17 gm DAILYPRN PRN ORAL Constipation 08/09/18 14:06 09/08/18 14:05 Sodium Chloride 1,000 ml @ 100 mls/hr Q10H IV 08/09/18 14:04 09/08/18 14:03 08/10/18 00:04 Allergies: Coded Allergies: No Known Allergies (Unverified , 08/04/18) ROS Limited/Unobtainable: No Constitutional: Reports: no symptoms HEENT: Reports: no symptoms Cardiovascular: Reports: no symptoms Respiratory: Reports: no symptoms Gastrointestinal/Abdominal: Reports: no symptoms Genitourinary: Reports: pain Neurologic/Psychiatric: Reports: no symptoms Subjective 43 YO F admitted with Bartholin's Cyst. Cover for Int Med-DR Mcintyre Objective Last Vital Signs Date Time Temp Pulse Resp B/P (MAP) Pulse Ox O2 Delivery O2 Flow Rate FiO2 08/10/18 12:00 97.9 73 16 111/60 (77) 95 08/10/18 09:00 Room Air Laboratory Tests Test 08/10/18 05:20 Sodium Level 134 MMOL/L (136-145) L Potassium Level 4.4 MMOL/L (3.5-5.1) Chloride Level 100 MMOL/L (98-107) Carbon Dioxide Level 26 MMOL/L (21-32) Anion Gap 8 mmol/L (5-15) Blood Urea Nitrogen 6 mg/dL (7-18) L Creatinine 0.6 MG/DL (0.55-1.30) Estimat Glomerular Filtration Rate > 60 mL/min (>60) Glucose Level 168 MG/DL (74-106) H Calcium Level 8.6 MG/DL (8.5-10.1) Magnesium Level 1.7 MG/DL (1.8-2.4) L Microbiology Date/Time Source Procedure Growth Status 08/07/18 17:00 Vaginal Gram Stain - Final Complete 08/07/18 17:00 Wound Culture - Final Streptococcus Group B Usual Vaginal Marisa Complete 08/07/18 19:00 Nasal Nares MRSA Culture - Final Staphylococcus Aureus - Mrsa Complete 08/07/18 17:20 Urine,Clean Catch Urine Culture - Preliminary Staphylococcus Aureus Streptococcus Species Resulted 08/07/18 19:00 Rectum VRE Culture - Final Enterococcus Faecium - Vre Complete 08/07/18 19:00 Rectum - Final NO CARBAPENEM-RESISTANT ENTEROBACTERI... Complete Intake and Output 08/09/18 08/10/18 18:59 06:59 Intake Total 300 ml 1100 ml Balance 300 ml 1100 ml IV Total 300 ml 1100 ml # Voids 2 Objective Objective GENERAL: awake, responsive, no acute distress. HEAD AND NECK: Pupils are equal and reactive to light. Anicteric. NECK: Supple. No JVD. LUNGS: Good air entry. No wheezes or rales. HEART: S1, S2. Regular rhythm. No murmur or gallops. ABDOMEN: Soft, nondistended, nontender, morbidly obese. Midline incision, ventral hernia incision was well healed noted. EXTREMITIES: No cyanosis, clubbing, or edema. NEUROLOGIC: Cranial nerves II through XII grossly intact. Motor is 5/5 in all extremities. Gait is intact. PSYCHIATRIC: Mood and affect is intact. Assessment/Plan Assessment/Plan Assessment/Plan Assessment/Plan 1. Hyperglycemia with DKA. 2. Bartholin's cyst in the left vaginal area. 3. Hypertension. 4. Hyponatremia. 5. Dehydration. 6. Morbid obesity. 7. Acute UTI. PLAN: DC telemetry transferred to medical floor. Broad-spectrum antibiotic with Levaquin and Flagyl. Follow up with the labs and cultures. Code status is Full Code. DVT prophylaxis: heparin subcutaneous. Dr. Diggs from Pulmonary Critical Dr. Saleem from Endocrine, S/P I&D in emerg room 08/07/18 Marshal Gilbert MD Aug 10, 2018 15:57
[2018-08-10] MEDS ORDERED: Tubing IV Secondary IV ONE (16:19)
--- NOTE | 2018-08-10 16:20 | NUR ---
NURSE NOTES: Patient left facility via taxi in stable condition. Prior to discharge, no s/s of hyper/hypoglycemia. v/S stable. Prescription given to the patient for metformin, benadryl, flagyl, triamcinolone and insulin. Patient will fill the medications form the pharmacy she goes to. Skin assessment done, skin intact, no IV, ID was removed. Discharge instruction given to the patient. Patient will follow up with her primary doctor as needed. Patient knows when to seek medical attention. Patient says her top cloth is soil with emesis from ER. Patient wanted to wear hospital gown since she has no more clothes. RN offered clothes from [facility] closet. Patient refused to wear it stating " I do not want to wear someone else's." RN explained they are clean but she refused. Staff escorted patient to the taxi. all belongings accounted for including her phone.
--- NOTE | 2018-08-10 18:31 | Cardiology Report ---
APPROVED REPORT EKG Measurement Heart [id number] Sinus tachycardia Septal infarct, age undetermined Abnormal ECG
[2018-08-10] MEDS ORDERED: Dyna-Hex 2% Top Sol 2oz TOPIC SCH (20:00)
--- NOTE | 2018-08-11 23:30 | Diagnostic Imaging Report ---
APPROVED REPORT CPT Code: 96911 Present Symptoms Comments: Screening BILATERAL: Imaging reveals a patent deep venous system bilaterally. There is no evidence of thrombus within the common femoral, superficial femoral, popliteal or tibial segments. The greater saphenous veins are within normal limits. Doppler indicates normal spontaneous flow within these segments.
--- NOTE | 2018-08-13 11:38 | Discharge Summary ---
Discharge Summary Discharge Summary _ DATE OF ADMISSION: 08/07/2018 DATE OF DISCHARGE: 08/10/2018 DISCHARGED BY: Dr. Mcintyre REASON FOR ADMISSION: 43 years old female with past medical history of hypertension, diabetes mellitus , seen few days ago in emergency department for pain in vaginal area. At that time patient was started on valacyclovir. She denied any vaginal lesions. Patient reported feeling feverish. Patient reported difficult to control blood sugar Prior to presentation to ED , blood sugar was over 500 and she took 60 units of Humalog ( usually she takes 15 ) However blood sugar still was not controlled. Patient felt weak and and reported difficulty with walking. Pain in labial area reported to be severe pressure-like, and aching. Upon evaluation patient was tachycardic. Laboratory workup revealed leukocytosis, stable hemoglobin and hematocrit. Sodium 124. BUN 9, creatinine 1.3. Lactic acid 2.4. Glucose level 766 . Troponin was negative. Stable LFT. Urinalysis revealed evidence of probable urinary tract infection. EKG revealed sinus tachycardia, no acute ischemic changes. Physical examination revealed a left-sided Bartholin cyst , starting to drain. Incision and drainage of Bartholin cyst was done in emergency department . Hyperglycemia was initially treated with insulin bolus and then patient was started on insulin drip. Blood glucose went down to 336. Patient was admitted to ICU for further management. CONSULTANTS: pulmonary Dr. Diggs surgery Dr. Meraz magisterial district judge Dr. Saleem [facility] COURSE: Patient admitted to ICU and was continued with insulin drip as per DKA protocol. Patient started on broad-spectrum antibiotics. 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 Insulin drip was stopped after DKA resolved. Patient started on long-acting insulin, short acting insulin pre-meal along with a sliding scale of insulin as needed. Patient started on metformin, since lactic acid stabilized. Patient was provided with diabetic diet. Further anti-glycemic regimen was optimized based on glucose levels. Hemoglobin A1c 11.9, clearly not at goal. Patient will need close follow-up as outpatient to bring her blood sugar under control. Patient was encouraged compliance with anti-glycemic regimen at home. Hyponatremia resolved with aggressive IV hydration, and likely was due to dehydration secondary to DKA. Urine culture revealed MRSA and Strep group B. Culture of vaginal drainage revealed Strep group B Patient was on antibiotics . Leukocytosis resolved. No fevers. Renal parameters and electrolytes were closely monitored. Electrolytes(potassium, phosphorus ,and magnesium) were corrected . Surgeon followed. Wound care provided. Pain management was addressed and pain was controlled . No further drainage. Per surgeon patient had infected Bartholin cyst, status post I&D by emergency room physician. Wound showed minimal cellulitis, no drainage, no fluctuance. Patient was recovering well. Patient was transitioned to oral antibiotics upon discharge. Outpatient follow-up with gynecology was recommended. Blood pressure was managed with calcium channel tena. DVT prophylaxis provided. Supportive care provided. Bowel management bowel regimen instituted. Patient clinically stabilized and was ready for discharge home FINAL DIAGNOSES: Sepsis Diabetic ketoacidosis with lactic acidosis -resolved Diabetes out of control Left-sided infected Bartholin cyst, status post incision and drainage Cellulitis UTI Acute hyponatremia Hypertension Dehydration Morbid obesity DISCHARGE MEDICATIONS: See Medication Reconciliation list. DISCHARGE INSTRUCTIONS: Patient was discharged home. Follow up with primary care provider in one week. Follow up with a channel layer as outpatient. I have been assigned to dictate discharge summary for this account. I was not involved in the patient's management. Shilpa Levi NP Aug 13, 2018 11:38
== END 2018-08-10 16:20 | disposition home or self-care (01) | DRG 720 ==
LOC: EMR 17:07 → EDBEDREQSVC 17:35 → EDBEDREQ 17:35 → EDBEDREQSVC 17:39 → EDBEDREQ 19:12 → ICU 19:33 → 2E 08-08 16:10 → 4E 08-09 14:00
DX: A41.9 Sepsis, unspecified organism (principal); E11.65 Type 2 diabetes mellitus with hyperglycemia; E66.01 Morbid (severe) obesity due to excess calories; K86.1 Other chronic pancreatitis; E87.1 Hypo-osmolality and hyponatremia; Z68.41 Body mass index [BMI] 40.0-44.9, adult; L03.90 Cellulitis, unspecified; N39.0 Urinary tract infection, site not specified; N75.0 Cyst of Bartholin's gland; E86.0 Dehydration; F17.200 Nicotine dependence, unspecified, uncomplicated; K43.9 Ventral hernia without obstruction or gangrene; L03.119 Cellulitis of unspecified part of limb; Z79.4 Long term (current) use of insulin
CPT/HCPCS: 10060; 36415; 80048; 80053; 80076; 81003; 82550; 82962; 83036; 83605; 83690; 83735; 84100; 84484; 85025; 85610; 85730; 87070; 87081; 87086; 87181; 87205; 93005; 93970; 96361; 96365; 96366; 96367; 96375; 99291; J1815; J2405; J8499; S5561

== ENCOUNTER 2018-09-30 01:09 | Inpatient (IN) | payer OTHER ==
[~2018-09-30] VITALS: Ht 157.5 cm; Wt 95.8 kg
[~2018-09-30 01:09] MED LIST changes: +BENADRYL25 M3 PO; +GLUCOPHAGE500 MG ORAL; +KENALOG IN ORABA1 EA APPLIC; +LEVEMIR FL100 UNIT/1 SUBQ; +METRONIDAZOLE500 MG ORAL
[2018-09-30] MEDS ORDERED: HYDROmorphone 1mg/ml Carpuject IVP ONE (01:45)
--- NOTE | 2018-09-30 01:46 | Emergency Room Report ---
History of Present Illness General Chief Complaint: Abdominal Pain Source: Patient Present Illness HPI Is a 43-year-old female with history of diabetes and high blood pressure. She also has a history abdominal hernia surgery. She presents with chief complaint abdominal pain with nausea vomiting diarrhea. Onset for last 4 days. No fever chills. Has abdominal distention. Nothing made it better. Eating or drinking made it worse. 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 She hasn't drink in over 10 years. She said it felt like it. Pain is 8 out of 10. No radiation. Diffuse in nature. Allergies: Coded Allergies: No Known Allergies (Unverified , 08/04/18) Patient History Past Medical History: see triage record, old chart reviewed, HTN Past Surgical History: other Pertinent Family History: none Last Menstrual Period: 09-25-2018 Now: No Immunizations: other Reviewed Nursing Documentation: PMH: Agreed; PSxH: Agreed Nursing Documentation-PMH Hx Hypertension: Yes Hx Diabetes: Yes Hx Cancer: No Hx Gastrointestinal Problems: Yes Hx Neurological Problems: No Review of Systems Eye: Denies: eye pain, blurred vision ENT: Denies: ear pain, nose congestion, throat swelling Respiratory: Denies: cough, shortness of breath Cardiovascular: Denies: chest pain, palpitations Gastrointestinal: Reports: abdominal pain, diarrhea, nausea, vomiting Musculoskeletal: Denies: back pain, joint pain Skin: Denies: rash Neurological: Denies: headache, numbness Endocrine: Denies: increased thirst, increased urine Hematologic/Lymphatic: Denies: easy bruising All Other Systems: negative except mentioned in HPI Physical Exam Vital Signs Date Time Temp Pulse Resp B/P (MAP) Pulse Ox O2 Delivery O2 Flow Rate FiO2 09/30/18 01:27 98.2 101 20 181/114 (136) 98 Room Air vitals with high blood pressure Sp02 EP Interpretation: reviewed, normal General Appearance: well appearing, no apparent distress, alert Head: normocephalic, atraumatic Eyes: bilateral eye PERRL, bilateral eye EOMI ENT: hearing grossly normal, normal pharynx Neck: full range of motion, supple, no meningismus Respiratory: chest non-tender, lungs clear, normal breath sounds Cardiovascular #1: regular rate, rhythm, no murmur Gastrointestinal: no mass, no organomegaly, no bruit, non-distended, abnormal bowel sounds - Hyperactive, gurgling, tenderness - Diffuse Musculoskeletal: back normal, gait/station normal, normal range of motion Neurologic: alert, oriented x3 Psychiatric: mood/affect normal Skin: warm/dry Medical Decision Making Diagnostic Impression: Primary Impression: Abdominal pain Qualified Codes: R10.84 - Generalized abdominal pain Additional Impressions: Chronic calcific pancreatitis Diabetes mellitus out of control Qualified Codes: E11.65 - Type 2 diabetes mellitus with hyperglycemia Pancreatitis, acute Qualified Codes: K85.90 - Acute pancreatitis without necrosis or infection, unspecified ER Course Patient presents with acute exacerbation of chronic abdominal pain. CT scan showed possible acute on chronic pancreatitis. Lipase ears normal. Patient has vomiting here. Her glucose was elevated but no evidence of DKA. She sleeping comfortably after dose of Dilaudid. When I wake her up, she wants more pain medication even though she looks very comfortable. Because of the intractable pain, will admit versus transfer based on insurance. Patient is otherwise stable. Pt will be admitting here. I contacted Dr. Mcintyre for admission. Lab Results Impression lab with elevated glucose CT/MRI/US Diagnostic Results CT/MRI/US Diagnostic Results : Imaging Test Ordered: CT abdomen and pelvis Impression Read by radiologist. There is some stranding around the pancreas. Pancreas already has multiple small calcification suggestive chronic pancreatitis. Last Vital Signs Date Time Temp Pulse Resp B/P (MAP) Pulse Ox O2 Delivery O2 Flow Rate FiO2 09/30/18 01:27 98.2 101 20 181/114 (136) 98 Room Air Status: improved Disposition: ADMITTED INPATIENT Condition: Serious Addison Ward MD Sep 30, 2018 01:46
[2018-09-30 02:02] VITALS: BP 165/97
--- NOTE | 2018-09-30 02:05 | NUR ---
ED Nurse Note: Pt arrived ED from home, c/o abdominal pain with Nausea and vomiting for 3 days and get wrose today. Pt is A/O X 4, Vital signs stable at this time, waiting for orders.
[2018-09-30 02:27] LABS: BASOPHILS % (AUTO) 1.1 % (0.0-2.0); EOSINOPHILS % (AUTO) 1.7 % (0.0-3.0); HEMATOCRIT 42.1 % (37.0-47.0); HEMOGLOBIN 13.9 G/DL (12.0-16.0); LYMPHOCYTES % (AUTO) 21.9 % (20.0-45.0); MEAN CORPUSCULAR VOLUME 84 FL (80-99); MONOCYTES % (AUTO) 5.1 % (1.0-10.0); NEUTROPHILS % (AUTO) 70.2 % (45.0-75.0); PLATELET COUNT 303 K/UL (150-450); RED BLOOD COUNT 4.98 M/UL (4.20-5.40); WHITE BLOOD COUNT 7.1 K/UL (4.8-10.8)
--- NOTE | 2018-09-30 02:30 | NUR ---
ED Nurse Note: Blood and urine sample collected and sent to Lab.
[2018-09-30 02:32] LABS: APPEARANCE,URINE CLEAR; BILIRUBIN, URINE NEGATIVE (NEGATIVE); COLOR,URINE PALE YELLOW; GLUCOSE, URINE (UA) 4+ (NEGATIVE); KETONES,URINE NEGATIVE (NEGATIVE); LEUKOCYTE ESTERASE ,URINE NEGATIVE (NEGATIVE); NITRITE,URINE NEGATIVE (NEGATIVE); PH,URINE 6.5 (4.5-8.0); PROTEIN,URINE 1+ (NEGATIVE); UROBILINOGEN,URINE NORMAL MG/DL (0.0-1.0)
--- NOTE | 2018-09-30 02:32 | NUR ---
ED Nurse Note: Meds given as ordered.
[2018-09-30 02:33] LABS: ANION GAP 10 mmol/L (5-15); BLOOD UREA NITROGEN 7 mg/dL (7-18); CALCIUM 9.5 MG/DL (8.5-10.1); CARBON DIOXIDE 25 MMOL/L (21-32); CHLORIDE 95 MMOL/L (98-107); CREATININE 0.9 MG/DL (0.55-1.30); POTASSIUM 4.6 MMOL/L (3.5-5.1); SODIUM 130 MMOL/L (136-145)
[2018-09-30 02:38] LABS: ALANINE AMINOTRANSFERASE 26 U/L (12-78); ALBUMIN 3.2 G/DL (3.4-5.0); ALBUMIN/GLOBULIN RATIO 0.7 (1.0-2.7); ALKALINE PHOSPHATASE 198 U/L (46-116); ASPARTATE AMINO TRANSFERASE 28 U/L (15-37); BILIRUBIN,TOTAL 0.3 MG/DL (0.2-1.0)
[2018-09-30] MEDS ORDERED: Insulin Human Regular 100units/ml 3ml IV ONE (04:00)
--- NOTE | 2018-09-30 05:30 | NUR ---
ED Nurse Note: Pt is still c/o abdominal pain11/03. waiting for bed to transfer.
[2018-09-30] MEDS ORDERED: Morphine Sulfate 4mg/ml Inj (IV USE ONLY) IVP ONE (06:00)
--- NOTE | 2018-09-30 07:20 | NUR ---
TRANSFER TO FLOOR: Patient transferred to [facility] as ordered . Report given to Ashley/RN. Belongings sent with Pt and rechecked with RN.
--- NOTE | 2018-09-30 08:04 | NUR ---
NURSE NOTES: Received patient from Emergency room,patient is alert and oriented,respirations are unlabored.Will notify DR Of patient room number.
[2018-09-30 08:10] VITALS: BP 126/82
--- NOTE | 2018-09-30 09:19 | Diagnostic Imaging Report ---
Indication: Abdominal pain Technique: Continuous helical transaxial imaging of the abdomen and pelvis was obtained from the lung bases to the pubic symphysis. No intravenous contrast was administered. Coronal 2-D reformats were also obtained. Automatic Exposure Control was utilized. Total Dose length Product (DLP): 1003.[address] Dose Index Volume (CTDIvol): 18.4 mGy Comparison: none Findings: Hepatomegaly noted. The lung bases are clear. Spleen is normal size. There are probable gallstones. There is no biliary ductal dilatation. There are calcifications in the pancreas consistent with chronic pancreatitis. In addition there is ill-definition of the border of the pancreas with mild peripancreatic stranding consistent with acute pancreatitis. Please correlate clinically. Bowel gas pattern is nonobstructive. There is a prominent scar in the ventral abdominal wall from previous surgery. The appendix is seen and appears normal. There is a implanted metallic right fallopian tube. Uterus is noted. The ovaries are not seen. Bladder is nondistended. Small nodes are seen in the iliac and inguinal regions bilaterally nonspecific. Mild calcification of aorta demonstrated. Small retroperitoneal nodes are present. No hydronephrosis or renal stones are identified. There is no adrenal mass. IMPRESSION: Acute on chronic pancreatitis. No phlegmon, abscess or pseudocyst identified. Probable gallstones. No evidence of biliary ductal dilatation. Hepatomegaly Small retroperitoneal and pelvic/inguinal nodes, nonspecific in nature. Status post right fallopian tube implant. The CT scanner at [facility] is accredited by the [employer] and the scans are performed using dose optimization techniques as appropriate to a performed exam including Automatic Exposure control.
--- NOTE | 2018-09-30 10:02 | NUR ---
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 PHOS 198, GLUCOSE [address]: Acute on chronic pancreatitis. Hepatomegaly IS:NS x1L IV DILAUDID 1mg IVP ZOFRAN 4mg IVP NOVOLIN R 10 units IV MORPHINE SULFATE 4mg IVP ADMITTED TO MED/SURG DCP: RETURN HOME
[2018-09-30] MEDS ORDERED: D5 1/2NS 1,000 ML IV SCH (10:24)
[2018-09-30] MEDS ORDERED: Miralax 17gm pkt ORAL PRN (10:30)
[2018-09-30] MEDS ORDERED: Nitroglycerin Subl 0.4mg tab SL PRN (10:30)
--- NOTE | 2018-09-30 10:51 | GI Initial Consult Note ---
History of Present Illness General Date patient seen: Sep 30, 2018 Time patient seen: 10:43 Reason for Hospitalization: Abdominal Pain Referring physician: LEANNA FELDMAN Reason for Consultation: PANCREATITIS Present Illness HPI Is a 43-year-old female with history of diabetes and high blood pressure. She also has a history abdominal hernia surgery. She presents with chief complaint abdominal pain with nausea vomiting diarrhea. Onset for last 4 days. No fever chills. Has abdominal distention. Nothing made it better. Eating or drinking made it worse. 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 She hasn't drink in over 10 years. She said it felt like it. Pain is 8 out of 10. No radiation. Diffuse in nature. GI consulted for pancreatitis as noted on recent abdominal pelvic CT. 43-year- old female with past medical history significant for diabetes type 2, history of multiple abdominal hernia repair with the most recent being in earlier 2018. The patient reported severe abdominal pain accompanied with nausea vomiting diarrhea for approximately 3 days. The patient has complaint of severe abdominal pain. The abdomen appears distended, but is soft with mild tenderness. No tympany noted. Patient states that she is tobacco user. Denies any alcohol or drug use. Labs reviewed mainly noted for elevated alkaline phosphatase of 198. No anemia or leukocytosis noted. Lipase are within normal limits. Patient has no history of endoscopic colonoscopy. Home Meds Active Scripts Triamcinolone (Triamcinolone Acetonide) 5 Gm Paste..g., 1 EA APPLIC EVERY 12 HOURS for 7 Days, TUBE Prov:Lavelle Diggs MD 08/10/18 Diphenhydramine HCl (Benadryl) 25 Mg Capsule, 25 MG PO EVERY 8 HOURS for 10 Days , CAP Prov:Lavelle Diggs MD 08/10/18 Metronidazole* (FLAGYL*) 500 Mg Tablet, 500 MG ORAL EVERY 8 HOURS for 3 Days, TAB Prov:Lavelle Diggs MD 08/10/18 Metformin Hcl* (GLUCOPHAGE*) 500 Mg Tablet, 1000 MG ORAL BID for 30 Days, TAB Prov:Lavelle Diggs MD 08/10/18 Insulin Detemir (LEVEMIR FLEXPEN) 100 Unit/1 Ml Insuln.pen, 33 UNITS SUBQ BID for 30 Days, EA Prov:Lavelle Diggs MD 08/10/18 D-Methorphan Hb/Prometh Hcl* (PROMETHAZINE-DM SYRUP*) 118 Ml Syrup, 5 ML ORAL Q6H PRN for For Cough, #120 ML 0 Refills Prov:Stacie Ortiz 08/04/18 Nystatin* (NYSTATIN*) 15 Gm Cream..g., 1 APPLIC TOPIC THREE TIMES A DAY, #15 GM 2 Refills Prov:Stacie Ortiz 08/04/18 Reported Medications Gabapentin* (GABAPENTIN*) 300 Mg Capsule, 300 MG ORAL THREE TIMES A DAY, CAP 0 Refills 07/15/18 Amlodipine Besylate* (AMLODIPINE BESYLATE*) 5 Mg Tablet, 5 MG ORAL DAILY, TAB 06/18/18 [Admelog] No Conflict Check, SUBQ Sliding Scale 12/18/17 Insulin Glargine (LANTUS) 100 Unit/1 Ml Insuln.pen, 50 UNITS SUBQ BID, #1 EA 0 Refills 12/18/17 Med list reviewed/reconciled: Yes Allergies: Coded Allergies: No Known Allergies (Unverified , 08/04/18) Patient History PMH Narrative PAST MEDICAL HISTORY/PAST SURGICAL HISTORY: As above, history of diabetes type 2, insulin dependent, history of hypertension, morbid obesity, and abdominal wall hernia, status post multiple surgery repair and revision. Past Medical History: see triage record, old chart reviewed, HTN Past Surgical History: other Pertinent Family History: none Last Menstrual Period: 09-25-2018 Now: No Immunizations: other Reviewed Nursing Documentation: PMH: Agreed; PSxH: Agreed Nursing Documentation-PMH Hx Hypertension: Yes Hx Diabetes: Yes Hx Cancer: No Hx Gastrointestinal Problems: Yes Hx Neurological Problems: No Past Surgical History: other - See HPI Social History: Denies: smoking, alcohol use, drug use, other Review of Systems All Other Systems: negative except mentioned in HPI Physical Exam Vital Signs Date Time Temp Pulse Resp B/P (MAP) Pulse Ox O2 Delivery O2 Flow Rate FiO2 09/30/18 01:27 98.2 101 20 181/114 (136) 98 Room Air Sp02 EP Interpretation: reviewed, normal Labs Laboratory Tests Test 09/30/18 02:00 09/30/18 02:23 White Blood Count 7.1 K/UL (4.8-10.8) Red Blood Count 4.98 M/UL (4.20-5.40) Hemoglobin 13.9 G/DL (12.0-16.0) Hematocrit 42.1 % (37.0-47.0) Mean Corpuscular Volume 84 FL (80-99) Mean Corpuscular Hemoglobin 27.8 PG (27.0-31.0) Mean Corpuscular Hemoglobin Concent 32.9 G/DL (32.0-36.0) Red Cell Distribution Width 17.0 % (11.6-14.8) H Platelet Count 303 K/UL (150-450) Mean Platelet Volume 6.2 FL (6.5-10.1) L Neutrophils (%) (Auto) 70.2 % (45.0-75.0) Lymphocytes (%) (Auto) 21.9 % (20.0-45.0) Monocytes (%) (Auto) 5.1 % (1.0-10.0) Eosinophils (%) (Auto) 1.7 % (0.0-3.0) Basophils (%) (Auto) 1.1 % (0.0-2.0) Sodium Level 130 MMOL/L (136-145) L Potassium Level 4.6 MMOL/L (3.5-5.1) Chloride Level 95 MMOL/L (98-107) L Carbon Dioxide Level 25 MMOL/L (21-32) Anion Gap 10 mmol/L (5-15) Blood Urea Nitrogen 7 mg/dL (7-18) Creatinine 0.9 MG/DL (0.55-1.30) Estimat Glomerular Filtration Rate > 60 mL/min (>60) Glucose Level 460 MG/DL (74-106) H Calcium Level 9.5 MG/DL (8.5-10.1) Total Bilirubin 0.3 MG/DL (0.2-1.0) Aspartate Amino Transf (AST/SGOT) 28 U/L (15-37) Alanine Aminotransferase (ALT/SGPT) 26 U/L (12-78) Alkaline Phosphatase 198 U/L (46-116) H Total Protein 8.0 G/DL (6.4-8.2) Albumin 3.2 G/DL (3.4-5.0) L Globulin 4.8 g/dL Albumin/Globulin Ratio 0.7 (1.0-2.7) L Lipase 172 U/L (73-393) Urine Color Pale yellow Urine Appearance Clear Urine pH 6.5 (4.5-8.0) Urine Specific [place] 1.005 (1.005-1.035) Urine Protein 1+ (NEGATIVE) H Urine Glucose (UA) 4+ (NEGATIVE) H Urine Ketones Negative (NEGATIVE) Urine Blood 4+ (NEGATIVE) H Urine Nitrite Negative (NEGATIVE) Urine Bilirubin Negative (NEGATIVE) Urine Urobilinogen Normal MG/DL (0.0-1.0) Urine Leukocyte Esterase Negative (NEGATIVE) Urine RBC 15-20 /HPF (0 - 2) H Urine WBC 2-4 /HPF (0 - 2) Urine Squamous Epithelial Cells Many /LPF (NONE/OCC) H Urine Bacteria Few /HPF (NONE) Urine HCG, Qualitative Negative (NEGATIVE) General Appearance: well appearing, no apparent distress, alert Head: normocephalic EENT: PERRL/EOMI, normal ENT inspection Neck: supple Respiratory: normal breath sounds, no respiratory distress Cardiovascular: normal rate Gastrointestinal: normal inspection, non tender, soft, normal bowel sounds, non -distended, distended Rectal: deferred Genitourinary: no CVA tenderness Musculoskeletal: normal inspection, back normal Neurologic: normal inspection, alert, oriented x3, responsive Psychiatric: normal inspection, judgement/insight normal, memory normal Skin: normal inspection, normal color, no rash, warm/dry, palpation normal, well hydrated Lymphatic: normal inspection, no adenopathy Current Medications Current Medications Medications (Trade) Dose Ordered Sig/Greta Route PRN Reason Start Time Stop Time Status Last Admin Dose Admin Acetaminophen (Tylenol) 650 mg Q4H PRN ORAL fever 09/30/18 10:30 10/30/18 10:29 Dextrose (Dextrose 50%) 25 ml Q30M PRN IV Hypoglycemia 09/30/18 10:30 10/30/18 10:29 Dextrose (Dextrose 50%) 50 ml Q30M PRN IV Hypoglycemia 09/30/18 10:30 10/30/18 10:29 Dextrose/Sodium Chloride 1,000 ml @ 75 mls/hr [id number] IV 09/30/18 10:24 10/30/18 10:23 Diphenhydramine HCl (Benadryl) 25 mg Q6H PRN ORAL Itching/Pruritis 09/30/18 10:30 10/30/18 10:29 Heparin Sodium (Porcine) (Heparin 5000 units/ml) 5,000 units EVERY 12 HOURS SUBQ 09/30/18 21:00 10/30/18 20:59 Morphine Sulfate (Morphine Sulfate) 2 mg Q4H PRN IVP severe Pain (Pain Scale 7-10) 09/30/18 10:30 10/07/18 10:29 Nitroglycerin (Ntg) 0.4 mg Q5M X 3 DOSES PRN SL Prn Chest Pain 09/30/18 10:30 10/30/18 10:29 Ondansetron HCl (Zofran) 4 mg Q6H PRN IVP Nausea & Vomiting 09/30/18 10:30 10/30/18 10:29 Polyethylene Glycol (Miralax) 17 gm HSPRN PRN ORAL Constipation 09/30/18 10:30 10/30/18 10:29 Temazepam (Restoril) 15 mg HSPRN PRN ORAL Insomnia 09/30/18 10:30 10/07/18 10:29 GI: Plan Problems: (1) Diarrhea (2) Diabetes mellitus out of control (3) Pancreatitis, acute (4) Abdominal pain Plan Abdominal pelvic CT reviewed, acute pancreatitis with the presence of cholelithiasis. No biliary ductal dilation noted. Acute management for pancreatitis pain management Zofran as needed Maintain n.p.o. plus IV fluids, advance diet as tolerated PPI Diarrhea Send for C. difficile panel r/o infectious diarrhea if patient continues to have watery stools electrolyte correction follow labs Discussed with Dr. Jaimes. Thank you for this patient referral, we will follow. The patient was seen and examined at bedside and all new and available data was reviewed in the patients chart. I agree with the above findings, impression and plan. (Patient seen earlier today. Signature stamp does not reflect patient encounter time.). - MD Sylvia Wallace,[facility] [place]-Lucian COOKEE Sep 30, 2018 10:51
[2018-09-30 12:00] VITALS: BP 129/90
[2018-09-30] MEDS: Morphine Sulfate 2mg/ml Inj(IV/IM USE ONLY) IVP PRN ×2 (12:26→16:50)
--- NOTE | 2018-09-30 13:00 | Consultation ---
History of Present Illness General Date patient seen: Sep 30, 2018 Chief Complaint: Abdominal Pain Referring physician: LEANNA FELDMAN Reason for Consultation: PANCREATITIS Present Illness HPI 43-year-old female with history of diabetes and high blood pressure, ETOH induced pancreatitis, presented to ER with chief complaint of abdominal pain with nausea vomiting diarrhea for the last 4 days. Pain is 8 out of 10. A CT of abdomen showed acute pancreatitis. She is admitted for further management. Allergies: Coded Allergies: No Known Allergies (Unverified , 08/04/18) Medication History Scheduled Amlodipine Besylate* (Amlodipine Besylate*), 5 MG ORAL DAILY, (Reported) Diphenhydramine HCl (Benadryl), 25 MG PO EVERY 8 HOURS Gabapentin* (Gabapentin*), 300 MG ORAL THREE TIMES A DAY, (Reported) Insulin Detemir (Levemir Flexpen), 33 UNITS SUBQ BID Insulin Glargine (Lantus), 50 UNITS SUBQ BID, (Reported) Metformin Hcl* (Glucophage*), 1,000 MG ORAL BID Metronidazole* (Flagyl*), 500 MG ORAL EVERY 8 HOURS Nystatin* (Nystatin*), 1 APPLIC TOPIC THREE TIMES A DAY Triamcinolone (Triamcinolone Acetonide), 1 EA APPLIC EVERY 12 HOURS Scheduled PRN D-Methorphan Hb/Prometh Hcl* (Promethazine-Dm Syrup*), 5 ML ORAL Q6H PRN for For Cough Miscellaneous Medications [Admelog], Unknown Dose SUBQ, (Reported) Patient History Healthcare decision maker Resuscitation status Full Code Advanced Directive on File Past Medical/Surgical History Past Medical/Surgical History: (1) Chronic calcific pancreatitis (2) Ventral hernia (3) History of diabetes mellitus Review of Systems Constitutional: Reports: no symptoms Eye: Reports: no symptoms Physical Exam General Appearance: WD/WN, no apparent distress Lines, tubes and drains: peripheral HEENT: normocephalic, atraumatic Neck: non-tender, normal alignment, supple Respiratory/Chest: chest wall non-tender, lungs clear Cardiovascular/Chest: normal peripheral pulses Abdomen: normal bowel sounds Genitourinary/Rectal: normal genital exam Extremities: normal range of motion Last 24 Hour Vital Signs Date Time Temp Pulse Resp B/P (MAP) Pulse Ox O2 Delivery O2 Flow Rate FiO2 6/6/19 09:00 Room Air 09/30/18 09:00 Room Air 09/30/18 08:10 98.7 91 18 126/82 (97) 98 09/30/18 07:20 98.2 89 20 143/92 98 Room Air 09/30/18 02:50 98.2 09/30/18 02:02 99 20 Room Air 09/30/18 02:02 98.2 98 20 165/97 98 Room Air 09/30/18 01:27 98.2 101 20 181/114 (136) 98 Room Air Intake and Output 09/29/18 09/30/18 19:00 07:00 Intake Total 1000 ml Balance 1000 ml Intake Oral 0 ml IV Total 1000 ml Laboratory Tests Test 09/30/18 02:00 09/30/18 02:23 White Blood Count 7.1 K/UL (4.8-10.8) Red Blood Count 4.98 M/UL (4.20-5.40) Hemoglobin 13.9 G/DL (12.0-16.0) Hematocrit 42.1 % (37.0-47.0) Mean Corpuscular Volume 84 FL (80-99) Mean Corpuscular Hemoglobin 27.8 PG (27.0-31.0) Mean Corpuscular Hemoglobin Concent 32.9 G/DL (32.0-36.0) Red Cell Distribution Width 17.0 % (11.6-14.8) H Platelet Count 303 K/UL (150-450) Mean Platelet Volume 6.2 FL (6.5-10.1) L Neutrophils (%) (Auto) 70.2 % (45.0-75.0) Lymphocytes (%) (Auto) 21.9 % (20.0-45.0) Monocytes (%) (Auto) 5.1 % (1.0-10.0) Eosinophils (%) (Auto) 1.7 % (0.0-3.0) Basophils (%) (Auto) 1.1 % (0.0-2.0) Sodium Level 130 MMOL/L (136-145) L Potassium Level 4.6 MMOL/L (3.5-5.1) Chloride Level 95 MMOL/L (98-107) L Carbon Dioxide Level 25 MMOL/L (21-32) Anion Gap 10 mmol/L (5-15) Blood Urea Nitrogen 7 mg/dL (7-18) Creatinine 0.9 MG/DL (0.55-1.30) Estimat Glomerular Filtration Rate > 60 mL/min (>60) Glucose Level 460 MG/DL (74-106) H Calcium Level 9.5 MG/DL (8.5-10.1) Total Bilirubin 0.3 MG/DL (0.2-1.0) Aspartate Amino Transf (AST/SGOT) 28 U/L (15-37) Alanine Aminotransferase (ALT/SGPT) 26 U/L (12-78) Alkaline Phosphatase 198 U/L (46-116) H Total Protein 8.0 G/DL (6.4-8.2) Albumin 3.2 G/DL (3.4-5.0) L Globulin 4.8 g/dL Albumin/Globulin Ratio 0.7 (1.0-2.7) L Lipase 172 U/L (73-393) Urine Color Pale yellow Urine Appearance Clear Urine pH 6.5 (4.5-8.0) Urine Specific [place] 1.005 (1.005-1.035) Urine Protein 1+ (NEGATIVE) H Urine Glucose (UA) 4+ (NEGATIVE) H Urine Ketones Negative (NEGATIVE) Urine Blood 4+ (NEGATIVE) H Urine Nitrite Negative (NEGATIVE) Urine Bilirubin Negative (NEGATIVE) Urine Urobilinogen Normal MG/DL (0.0-1.0) Urine Leukocyte Esterase Negative (NEGATIVE) Urine RBC 15-20 /HPF (0 - 2) H Urine WBC 2-4 /HPF (0 - 2) Urine Squamous Epithelial Cells Many /LPF (NONE/OCC) H Urine Bacteria Few /HPF (NONE) Urine HCG, Qualitative Negative (NEGATIVE) Height (Feet): 5 Height (Inches): 2.00 Weight (Pounds): 214 Medications Current Medications Medications (Trade) Dose Ordered Sig/Greta Route PRN Reason Start Time Stop Time Status Last Admin Dose Admin Acetaminophen (Tylenol) 650 mg Q4H PRN ORAL fever 09/30/18 10:30 10/30/18 10:29 Dextrose (Dextrose 50%) 25 ml Q30M PRN IV Hypoglycemia 09/30/18 10:30 10/30/18 10:29 Dextrose (Dextrose 50%) 50 ml Q30M PRN IV Hypoglycemia 09/30/18 10:30 10/30/18 10:29 Diphenhydramine HCl (Benadryl) 25 mg Q6H PRN ORAL Itching/Pruritis 09/30/18 10:30 10/30/18 10:29 Heparin Sodium (Porcine) (Heparin 5000 units/ml) 5,000 units EVERY 12 HOURS SUBQ 09/30/18 21:00 10/30/18 20:59 Morphine Sulfate (Morphine Sulfate) 2 mg Q4H PRN IVP severe Pain (Pain Scale 7-10) 09/30/18 10:30 10/07/18 10:29 09/30/18 12:26 Nitroglycerin (Ntg) 0.4 mg Q5M X 3 DOSES PRN SL Prn Chest Pain 09/30/18 10:30 10/30/18 10:29 Ondansetron HCl (Zofran) 4 mg Q6H PRN IVP Nausea & Vomiting 09/30/18 10:30 10/30/18 10:29 Polyethylene Glycol (Miralax) 17 gm HSPRN PRN ORAL Constipation 09/30/18 10:30 10/30/18 10:29 Sodium Chloride 1,000 ml @ 75 mls/hr [id number] IV 09/30/18 11:01 10/30/18 11:00 09/30/18 12:33 Temazepam (Restoril) 15 mg HSPRN PRN ORAL Insomnia 09/30/18 10:30 10/07/18 10:29 Assessment/Plan Problem List: (1) Pancreatitis, acute ICD Codes: K85.90 - Acute pancreatitis without necrosis or infection, unspecified SNOMED: 986105672 Qualifiers: Qualified Codes: K85.90 - Acute pancreatitis without necrosis or infection, unspecified (2) Diabetes mellitus out of control ICD Codes: E11.65 - Type 2 diabetes mellitus with hyperglycemia SNOMED: 24154239, 901198612 Qualifiers: Qualified Codes: E11.65 - Type 2 diabetes mellitus with hyperglycemia (3) Chronic calcific pancreatitis ICD Codes: K86.1 - Other chronic pancreatitis SNOMED: 259768201 Assessment/Plan: NPO IV fluids check electrolytes check HemA1C symptomatic treatment check electrolytes dvt prophylaxis pain control. Lavelle Diggs MD Sep 30, 2018 13:00
[2018-09-30 16:00] VITALS: BP 156/107
--- NOTE | 2018-09-30 18:30 | NUR ---
NURSE NOTES:patient started on [facility], [place] medium diet per DR Jaimes,waiting for call back,from DR Diggs regarding blood sugar check 272mg/dl.
--- NOTE | 2018-09-30 19:25 | NUR ---
HAND-OFF: Report given to Fco PERLA.
--- NOTE | 2018-09-30 19:54 | NUR ---
NURSE NOTES: Received patient sitting by the bed, moaning and complaining of pain and stated that morphine does not work. Notified Dr. Diggs regarding pain not managed and her blood sugar was elevated and Dr. Diggs inputted orders in EMR.
--- NOTE | 2018-09-30 19:56 | History & Physical ---
History and Physical History & Physicial Dictated for Int med-Dr Mcintyre no. [id number]. Marshal Gilbert MD Sep 30, 2018 19:56
[2018-09-30 20:00] VITALS: BP 149/78
[2018-09-30] MEDS ORDERED: Dextrose 50% 25ml Syringe IV PRN (20:00)
[2018-09-30] MEDS: Morphine Sulfate 4mg/ml Inj (IV USE ONLY) IVP PRN (20:07)
[2018-09-30] MEDS: Heparin 5000 units/ml inj SUBQ SCH (21:26)
[2018-09-30] MEDS: NovoLOG Insulin Flexpen SUBQ SCH (21:27)
[2018-10-01] VITALS (7 sets, daily range): BP systolic 130–156; BP diastolic 76–106
[2018-10-01] MEDS: Morphine Sulfate 4mg/ml Inj (IV USE ONLY) IVP PRN ×5 (00:09→20:13)
--- NOTE | 2018-10-01 01:30 | History and Physical Report ---
DATE OF ADMISSION: 09/30/2018 CHIEF COMPLAINT: The patient is a 43-year-old female, who presents with a chief complaint of abdominal pain, nausea, vomiting, and diarrhea. HISTORY OF PRESENT ILLNESS: Began approximately four days prior to admission. The patient began to experience abdominal pain. The patient then began to experience nausea and vomiting. The patient now has diarrhea. The patient states stools are watery. The patient states she is unable to tolerate liquids or solids. The patient presented to [facility] emergency room. The patient was admitted for nausea, vomiting, diarrhea, or abdominal pain. REVIEW OF SYSTEMS: CONSTITUTIONAL: The patient denies weight loss or weight gain. The patient denies fevers or chills. HEENT: The patient denies ear or throat pain. The patient denies headache. CARDIOVASCULAR: The patient denies palpitations or chest pain. CHEST: The patient denies wheeze or shortness of breath. ABDOMINAL: The patient complains of abdominal pain as above. The patient complains of nausea with vomiting as above. The patient complains of diarrhea as above. The patient denies constipation. GENITOURINARY: The patient denies dysuria or increased frequency of urination. NEUROMUSCULAR: The patient denies seizures or generalized weakness. PAST MEDICAL HISTORY: Significant for: 1. Type 2 diabetes, the patient was admitted to [facility] in July of 2018 with diabetic ketoacidosis. 2. Hypertension. 3. Ventral abdominal hernia. PAST SURGICAL HISTORY: Significant for multiple ventral abdominal hernia repair. CURRENT MEDICATIONS: 1. Amlodipine 5 mg p.o. daily. 2. Gabapentin 300 mg p.o. 3 times daily. 3. Levemir 33 units subcutaneously twice daily. 4. Metformin 1000 mg p.o. twice daily. 5. Insulin sliding scale. ALLERGIES: No known drug allergies. SOCIAL HISTORY: The patient is single. The patient denies tobacco or alcohol use. PHYSICAL EXAMINATION: VITAL SIGNS: Temperature 98.2, respirations 20, pulse 89, and blood pressure 143/90. GENERAL: The patient is a well-developed and well-nourished obese female, in no apparent distress. HEENT: Eyes, pupils are equal and responsive to light and accommodation. Extraocular movements are intact. NECK: Supple without lymphadenopathy. CHEST: Lungs are clear to auscultation bilaterally without wheezes or rales. CARDIOVASCULAR: Regular rhythm and rate. S1 and S2 are normal without murmurs, rubs, or gallops. ABDOMEN: Soft, distended with positive bowel sounds. There is tenderness to palpation in all four quadrants. There is no rebound or guarding noted. EXTREMITIES: Negative for clubbing, cyanosis, or edema. RECTAL/GENITAL: Refused. NEUROLOGIC: Cranial nerves II through XII are grossly intact without focal deficits. Motor strength is 5/5 bilaterally. Deep tendon reflexes are 2+ plantar. LABORATORY STUDIES: WBC 7.1, hemoglobin 13.9, hematocrit 42.1, and platelets 302,000. Sodium 130, potassium 4.6, chloride 95, CO2 25, BUN 7, creatinine 0.9, and glucose 460. Urinalysis showed 4+ glucose, 4+ blood with 15 to 20 rbc's. ASSESSMENT: This is a 43-year-old female. 1. Abdominal pain. 2. Nausea with vomiting and diarrhea. 3. Diabetes type 2. 4. Hypertension. TREATMENT: 1. Abdominal pain/nausea/vomiting/diarrhea. A Gastroenterology consultation has been obtained with Dr. Monty Jaimes. The patient may have gastroenteritis. We will follow recommendations of Gastroenterology. 2. Diabetes type 2, uncontrolled. The patient has been placed on a NovoLog sliding scale. 3. Hypertension. Continue amlodipine as above. Marshal Gilbert M.D. DR: VAMSI JOB#: [id number] CC:
--- NOTE | 2018-10-01 01:35 | NUR ---
HAND-OFF: Report given to Debra PERLA.
--- NOTE | 2018-10-01 01:36 | NUR ---
NURSE NOTES: Received patient in no apparent distress. A&OX4. IV site patent and intact. Bed in lowest position. Call light within reach. Will continue to monitor.
[2018-10-01] MEDS: NovoLOG Insulin Flexpen SUBQ SCH ×4 (06:24→21:07)
[2018-10-01 06:52] LABS: BASOPHILS % (AUTO) 0.8 % (0.0-2.0); EOSINOPHILS % (AUTO) 1.9 % (0.0-3.0); HEMATOCRIT 37.1 % (37.0-47.0); LYMPHOCYTES % (AUTO) 30.1 % (20.0-45.0); MEAN CORPUSCULAR VOLUME 87 FL (80-99); MONOCYTES % (AUTO) 5.4 % (1.0-10.0); NEUTROPHILS % (AUTO) 61.8 % (45.0-75.0); PLATELET COUNT 245 K/UL (150-450); RED BLOOD COUNT 4.28 M/UL (4.20-5.40); RED CELL DISTRIBUTION WIDTH 17.5 % (11.6-14.8); WHITE BLOOD COUNT 5.8 K/UL (4.8-10.8)
[2018-10-01 07:11] LABS: ALANINE AMINOTRANSFERASE 20 U/L (12-78); ALBUMIN 2.8 G/DL (3.4-5.0); ALBUMIN/GLOBULIN RATIO 0.7 (1.0-2.7); ALKALINE PHOSPHATASE 154 U/L (46-116); AMYLASE 17 U/L (25-115); ANION GAP 8 mmol/L (5-15); ASPARTATE AMINO TRANSFERASE 20 U/L (15-37); BILIRUBIN,TOTAL 0.2 MG/DL (0.2-1.0); BLOOD UREA NITROGEN 10 mg/dL (7-18); CALCIUM 8.4 MG/DL (8.5-10.1); CARBON DIOXIDE 24 MMOL/L (21-32); CHLORIDE 100 MMOL/L (98-107); CREATININE 0.7 MG/DL (0.55-1.30); POTASSIUM 3.6 MMOL/L (3.5-5.1); SODIUM 132 MMOL/L (136-145)
[2018-10-01 07:15] LABS: PHOSPHORUS 3.2 MG/DL (2.5-4.9)
--- NOTE | 2018-10-01 07:16 | NUR ---
HAND-OFF: Report given to Ashley PERLA.
--- NOTE | 2018-10-01 07:17 | NUR ---
NURSE NOTES: Patient awake and alert,sitting up and eating breakfast,IV fluids infusing as ordered.patient anticipating pain medication when due.Call light within reach.
[2018-10-01] MEDS: Heparin 5000 units/ml inj SUBQ SCH ×2 (08:42→20:15)
--- NOTE | 2018-10-01 10:55 | GI Progress Note ---
Assessment/Plan Problems: (1) Chronic calcific pancreatitis ICD Codes: K86.1 - Other chronic pancreatitis SNOMED: 703459906 (2) History of diabetes mellitus ICD Codes: Z86.39 - Personal history of other endocrine, nutritional and metabolic disease SNOMED: 406053200 (3) Ventral hernia ICD Codes: K43.9 - Ventral hernia without obstruction or gangrene SNOMED: 776399300 (4) Diabetes mellitus out of control ICD Codes: E11.65 - Type 2 diabetes mellitus with hyperglycemia SNOMED: 77867715, 794479135 Qualifiers: Qualified Codes: E11.65 - Type 2 diabetes mellitus with hyperglycemia (5) Pancreatitis, acute ICD Codes: K85.90 - Acute pancreatitis without necrosis or infection, unspecified SNOMED: 533649083 Qualifiers: Qualified Codes: K85.90 - Acute pancreatitis without necrosis or infection, unspecified (6) Diarrhea ICD Codes: R19.7 - Diarrhea, unspecified SNOMED: 07273067 (7) Abdominal pain ICD Codes: R10.9 - Unspecified abdominal pain SNOMED: 61946628 Qualifiers: Qualified Codes: R10.84 - Generalized abdominal pain Status: stable Status Narrative Discussed with Dr. Jaimes Assessment/Plan Abdominal pelvic CT reviewed, acute pancreatitis with the presence of cholelithiasis. No biliary ductal dilation noted. U tox unremarkable Diarrhea Acute management for pancreatitis pain management Zofran as needed soft diet PPI Send for C. difficile panel r/o infectious diarrhea if patient continues to have watery stools electrolyte correction follow labs, abdominal US The patient was seen and examined at bedside and all new and available data was reviewed in the patients chart. I agree with the above findings, impression and plan. (Patient seen earlier today. Signature stamp does not reflect patient encounter time.). - Monty Jaimes MD Subjective Subjective Patient unable to tolerate solid food, had complaint of abdominal pain after p.o. intake Objective Last 24 Hour Vital Signs Date Time Temp Pulse Resp B/P (MAP) Pulse Ox O2 Delivery O2 Flow Rate FiO2 10/01/18 08:00 99.0 84 17 130/80 (97) 95 10/01/18 04:00 98.7 87 20 148/94 (112) 98 10/01/18 00:00 97.7 92 20 138/76 (96) 98 6/6/19 21:00 Room Air 09/30/18 20:37 98.0 09/30/18 20:00 97.4 73 20 149/78 (101) 96 09/30/18 16:00 98.0 92 20 156/107 (123) 94 09/30/18 12:00 98.1 77 17 129/90 (103) 94 Intake and Output 09/30/18 10/01/18 19:00 07:00 Intake Total 967.5 ml 1155 ml Balance 967.5 ml 1155 ml Intake Oral 480 ml 480 ml IV Total 487.5 ml 675 ml # Voids 5 Laboratory Tests Test 09/30/18 19:45 10/01/18 06:23 Urine Opiates Screen Positive (NEGATIVE) H Urine Barbiturates Screen Negative (NEGATIVE) Phencyclidine (PCP) Screen Negative (NEGATIVE) Urine Amphetamines Screen Negative (NEGATIVE) Urine Benzodiazepines Screen Negative (NEGATIVE) Urine Cocaine Screen Negative (NEGATIVE) Urine Marijuana (THC) Screen Negative (NEGATIVE) White Blood Count 5.8 K/UL (4.8-10.8) Red Blood Count 4.28 M/UL (4.20-5.40) Hemoglobin 12.0 G/DL (12.0-16.0) Hematocrit 37.1 % (37.0-47.0) Mean Corpuscular Volume 87 FL (80-99) Mean Corpuscular Hemoglobin 27.9 PG (27.0-31.0) Mean Corpuscular Hemoglobin Concent 32.3 G/DL (32.0-36.0) Red Cell Distribution Width 17.5 % (11.6-14.8) H Platelet Count 245 K/UL (150-450) Mean Platelet Volume 6.3 FL (6.5-10.1) L Neutrophils (%) (Auto) 61.8 % (45.0-75.0) Lymphocytes (%) (Auto) 30.1 % (20.0-45.0) Monocytes (%) (Auto) 5.4 % (1.0-10.0) Eosinophils (%) (Auto) 1.9 % (0.0-3.0) Basophils (%) (Auto) 0.8 % (0.0-2.0) Erythrocyte Sedimentation Rate 38 MM/HR (0-20) H Activated Partial Thromboplast Time 30 SEC (23-33) Sodium Level 132 MMOL/L (136-145) L Potassium Level 3.6 MMOL/L (3.5-5.1) Chloride Level 100 MMOL/L (98-107) Carbon Dioxide Level 24 MMOL/L (21-32) Anion Gap 8 mmol/L (5-15) Blood Urea Nitrogen 10 mg/dL (7-18) Creatinine 0.7 MG/DL (0.55-1.30) Estimat Glomerular Filtration Rate > 60 mL/min (>60) Glucose Level 287 MG/DL (74-106) #H Calcium Level 8.4 MG/DL (8.5-10.1) L Phosphorus Level 3.2 MG/DL (2.5-4.9) Magnesium Level 1.5 MG/DL (1.8-2.4) L Total Bilirubin 0.2 MG/DL (0.2-1.0) Aspartate Amino Transf (AST/SGOT) 20 U/L (15-37) Alanine Aminotransferase (ALT/SGPT) 20 U/L (12-78) Alkaline Phosphatase 154 U/L (46-116) H C-Reactive Protein, Quantitative 2.1 mg/dL (0.00-0.90) H Total Protein 7.1 G/DL (6.4-8.2) Albumin 2.8 G/DL (3.4-5.0) L Globulin 4.3 g/dL Albumin/Globulin Ratio 0.7 (1.0-2.7) L Amylase Level 17 U/L (25-115) L Lipase 84 U/L (73-393) Height (Feet): 5 Height (Inches): 2.00 Weight (Pounds): 211 General Appearance: WD/WN, no apparent distress, alert Cardiovascular: normal rate Respiratory/Chest: normal breath sounds, no respiratory distress Abdominal Exam: normal bowel sounds, non tender, soft Extremities: normal range of motion, non-tender Carmen Wrad NP Oct 01, 2018 10:55
--- NOTE | 2018-10-01 13:43 | NUR ---
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 PHOS 152, GLUCOSE 287, Mag 1.5 IS:NOVOLOG SUBQ MAGNESIUM SULFATE 100ml IVPB HEPARIN SUBQ NS x1L IV MED/SURG STATUS
--- NOTE | 2018-10-01 13:57 | Consultation ---
History of Present Illness General Date patient seen: Oct 01, 2018 Chief Complaint: Abdominal Pain Referring physician: LEANNA FELDMAN Reason for Consultation: PANCREATITIS Present Illness HPI Ms. Warren is a 43 yo female with PMHx of DM and etOh abuse who presented to the ED with 4 days of abdominal pain with N/V. She also reports having diarrhea. Ah she was unable to keep anything down she came to the ED. She denies fever and chills. In the ED she was aferbile and had no leukocytosis. CT abd showed Acute on chronic pancreatitis. Lipase was 172. Since ad mite her pain is improved and she had had no diarrhea. ID was consulted for Abdominal pain PMHx/PSHx DM HTN Ventral hernia repair PMHx/PSHx SocHx No current E/T/D Quit EtOH 10 years ago FamHx Not Contributory Allergies: Coded Allergies: No Known Allergies (Unverified , 08/04/18) Medication History Scheduled Amlodipine Besylate* (Amlodipine Besylate*), 5 MG ORAL DAILY, (Reported) Diphenhydramine HCl (Benadryl), 25 MG PO EVERY 8 HOURS Gabapentin* (Gabapentin*), 300 MG ORAL THREE TIMES A DAY, (Reported) Insulin Detemir (Levemir Flexpen), 33 UNITS SUBQ BID Insulin Glargine (Lantus), 50 UNITS SUBQ BID, (Reported) Metformin Hcl* (Glucophage*), 1,000 MG ORAL BID Metronidazole* (Flagyl*), 500 MG ORAL EVERY 8 HOURS Nystatin* (Nystatin*), 1 APPLIC TOPIC THREE TIMES A DAY Triamcinolone (Triamcinolone Acetonide), 1 EA APPLIC EVERY 12 HOURS Scheduled PRN D-Methorphan Hb/Prometh Hcl* (Promethazine-Dm Syrup*), 5 ML ORAL Q6H PRN for For Cough Miscellaneous Medications [Admelog], Unknown Dose SUBQ, (Reported) Patient History Healthcare decision maker Resuscitation status Full Code Advanced Directive on File Review of Systems ROS Narrative 12 point ROS negative except as noted in the HPI Physical Exam Last 24 Hour Vital Signs Date Time Temp Pulse Resp B/P (MAP) Pulse Ox O2 Delivery O2 Flow Rate FiO2 10/01/18 12:00 98.3 81 17 133/84 (100) 96 10/01/18 09:00 Room Air 10/01/18 08:00 99.0 84 17 130/80 (97) 95 10/01/18 04:00 98.7 87 20 148/94 (112) 98 10/01/18 00:00 97.7 92 20 138/76 (96) 98 09/30/18 21:00 Room Air 09/30/18 20:37 98.0 09/30/18 20:00 97.4 73 20 149/78 (101) 96 09/30/18 16:00 98.0 92 20 156/107 (123) 94 Intake and Output 09/30/18 10/01/18 19:00 07:00 Intake Total 967.5 ml 1155 ml Balance 967.5 ml 1155 ml Intake Oral 480 ml 480 ml IV Total 487.5 ml 675 ml # Voids 5 Laboratory Tests Test 09/30/18 19:45 10/01/18 06:23 Urine Opiates Screen Positive (NEGATIVE) H Urine Barbiturates Screen Negative (NEGATIVE) Phencyclidine (PCP) Screen Negative (NEGATIVE) Urine Amphetamines Screen Negative (NEGATIVE) Urine Benzodiazepines Screen Negative (NEGATIVE) Urine Cocaine Screen Negative (NEGATIVE) Urine Marijuana (THC) Screen Negative (NEGATIVE) White Blood Count 5.8 K/UL (4.8-10.8) Red Blood Count 4.28 M/UL (4.20-5.40) Hemoglobin 12.0 G/DL (12.0-16.0) Hematocrit 37.1 % (37.0-47.0) Mean Corpuscular Volume 87 FL (80-99) Mean Corpuscular Hemoglobin 27.9 PG (27.0-31.0) Mean Corpuscular Hemoglobin Concent 32.3 G/DL (32.0-36.0) Red Cell Distribution Width 17.5 % (11.6-14.8) H Platelet Count 245 K/UL (150-450) Mean Platelet Volume 6.3 FL (6.5-10.1) L Neutrophils (%) (Auto) 61.8 % (45.0-75.0) Lymphocytes (%) (Auto) 30.1 % (20.0-45.0) Monocytes (%) (Auto) 5.4 % (1.0-10.0) Eosinophils (%) (Auto) 1.9 % (0.0-3.0) Basophils (%) (Auto) 0.8 % (0.0-2.0) Erythrocyte Sedimentation Rate 38 MM/HR (0-20) H Activated Partial Thromboplast Time 30 SEC (23-33) Sodium Level 132 MMOL/L (136-145) L Potassium Level 3.6 MMOL/L (3.5-5.1) Chloride Level 100 MMOL/L (98-107) Carbon Dioxide Level 24 MMOL/L (21-32) Anion Gap 8 mmol/L (5-15) Blood Urea Nitrogen 10 mg/dL (7-18) Creatinine 0.7 MG/DL (0.55-1.30) Estimat Glomerular Filtration Rate > 60 mL/min (>60) Glucose Level 287 MG/DL (74-106) #H Calcium Level 8.4 MG/DL (8.5-10.1) L Phosphorus Level 3.2 MG/DL (2.5-4.9) Magnesium Level 1.5 MG/DL (1.8-2.4) L Total Bilirubin 0.2 MG/DL (0.2-1.0) Aspartate Amino Transf (AST/SGOT) 20 U/L (15-37) Alanine Aminotransferase (ALT/SGPT) 20 U/L (12-78) Alkaline Phosphatase 154 U/L (46-116) H C-Reactive Protein, Quantitative 2.1 mg/dL (0.00-0.90) H Total Protein 7.1 G/DL (6.4-8.2) Albumin 2.8 G/DL (3.4-5.0) L Globulin 4.3 g/dL Albumin/Globulin Ratio 0.7 (1.0-2.7) L Amylase Level 17 U/L (25-115) L Lipase 84 U/L (73-393) Height (Feet): 5 Height (Inches): 2.00 Weight (Pounds): 211 Medications Current Medications Medications (Trade) Dose Ordered Sig/Greta Route PRN Reason Start Time Stop Time Status Last Admin Dose Admin Acetaminophen (Tylenol) 650 mg Q4H PRN ORAL fever 09/30/18 10:30 10/30/18 10:29 Dextrose (Dextrose 50%) 25 ml Q30M PRN IV Hypoglycemia 09/30/18 20:00 10/30/18 19:58 Dextrose (Dextrose 50%) 50 ml Q30M PRN IV hypoglycemia 09/30/18 20:00 10/30/18 19:59 Diphenhydramine HCl (Benadryl) 25 mg Q6H PRN ORAL Itching/Pruritis 09/30/18 10:30 10/30/18 10:29 Heparin Sodium (Porcine) (Heparin 5000 units/ml) 5,000 units EVERY 12 HOURS SUBQ 09/30/18 21:00 10/30/18 20:59 10/01/18 08:42 Insulin Aspart (NovoLOG) BEFORE MEALS AND HS SUBQ 09/30/18 21:00 10/30/18 20:59 10/01/18 12:43 Morphine Sulfate (Morphine Sulfate) 4 mg Q4H PRN IVP Severe Pain (Pain Scale 7-10) 09/30/18 20:00 10/07/18 19:59 10/01/18 08:40 Nitroglycerin (Ntg) 0.4 mg Q5M X 3 DOSES PRN SL Prn Chest Pain 09/30/18 10:30 10/30/18 10:29 Ondansetron HCl (Zofran) 4 mg Q6H PRN IVP Nausea & Vomiting 09/30/18 10:30 10/30/18 10:29 Polyethylene Glycol (Miralax) 17 gm HSPRN PRN ORAL Constipation 09/30/18 10:30 10/30/18 10:29 Sodium Chloride 1,000 ml @ 75 mls/hr [id number] IV 09/30/18 11:01 10/30/18 11:00 10/01/18 04:18 Temazepam (Restoril) 15 mg HSPRN PRN ORAL Insomnia 09/30/18 10:30 10/07/18 10:29 Objective Narrative Gen: NAD HEENT: NCAT, MMM, EOMI, PERRL, No Oral lesion, no scleral icterus NECK: full range of motion, supple, no meningismus, No LAD, No JVD LUNGS: CTAB, No W/C, No Accessory muscle use CARDS: RRR, S1, S2, No M/R/G, ABD: Soft, TTP, ND, No R/G, + BS, No HSM, No Masses : Deferred Ext: C/C/E, Pulses 2+ B/L (DP, Rad): NEURO: A/O x 4, Strength and Sensation Grossly intact PSYCH: Depressed SKIN: Warm/dry, No rashes Assessment/Plan Assessment/Plan: Ms. Warren is a 43 yo female with PMHx of DM and etOh abuse who presented to the ED with 4 days of abdominal pain with N/V. Pancreatitis vs viral gastroenteritis Aferbile and no Leukcoytosis CT Abd 6.6.19 - Acute on chronic pancreatitis. No phlegmon, abscess or pseudocyst identified. Probable gallstones. No evidence of biliary ductal dilatation. Hepatomegaly Small retroperitoneal and pelvic/inguinal nodes, nonspecific in nature. Status post right fallopian tube implant. DM Blood Sugars 460 HTN Plan - Monitor off abx - supportive care - Monitor CBC and Temps Thank you for this consult. We will continue to follow the patient during this hospitalization Julio Nunes MD Oct 01, 2018 13:57
--- NOTE | 2018-10-01 15:46 | Pulmonology Progress Note ---
Assessment/Plan Problems: (1) Pancreatitis, acute (2) Diabetes mellitus out of control (3) Chronic calcific pancreatitis Assessment/Plan symptomatic treatment pain management GI evaluation amylase and lipase are negative sliding scale diabetic diet Subjective ROS Limited/Unobtainable: No Constitutional: Reports: no symptoms HEENT: Repors: no symptoms Respiratory: Reports: no symptoms Allergies: Coded Allergies: No Known Allergies (Unverified , 08/04/18) Objective Last 24 Hour Vital Signs Date Time Temp Pulse Resp B/P (MAP) Pulse Ox O2 Delivery O2 Flow Rate FiO2 10/01/18 12:00 98.3 81 17 133/84 (100) 96 10/01/18 09:00 Room Air 10/01/18 08:00 99.0 84 17 130/80 (97) 95 10/01/18 04:00 98.7 87 20 148/94 (112) 98 10/01/18 00:00 97.7 92 20 138/76 (96) 98 09/30/18 21:00 Room Air 09/30/18 20:37 98.0 09/30/18 20:00 97.4 73 20 149/78 (101) 96 09/30/18 16:00 98.0 92 20 156/107 (123) 94 Intake and Output 09/30/18 10/01/18 19:00 07:00 Intake Total 967.5 ml 1155 ml Balance 967.5 ml 1155 ml Intake Oral 480 ml 480 ml IV Total 487.5 ml 675 ml # Voids 5 General Appearance: WD/WN HEENT: normocephalic, atraumatic Respiratory/Chest: chest wall non-tender, lungs clear Breasts: no masses Cardiovascular: normal peripheral pulses, normal rate Abdomen: normal bowel sounds, no organomegaly Genitourinary: normal external genitalia Extremities: no clubbing Skin: no rash Laboratory Tests 09/30/18 19:45: Urine Opiates Screen PositiveH, Urine Barbiturates Screen Negative, Phencyclidine (PCP) Screen Negative, Urine Amphetamines Screen Negative, Urine Benzodiazepines Screen Negative, Urine Cocaine Screen Negative, Urine Marijuana (THC) Screen Negative 10/01/18 06:23: White Blood Count 5.8, Red Blood Count 4.28, Hemoglobin 12.0, Hematocrit 37.1, Mean Corpuscular Volume 87, Mean Corpuscular Hemoglobin 27.9, Mean Corpuscular Hemoglobin Concent 32.3, Red Cell Distribution Width 17.5H, Platelet Count 245, Mean Platelet Volume 6.3L, Neutrophils (%) (Auto) 61.8, Lymphocytes (%) (Auto) 30.1, Monocytes (%) (Auto) 5.4, Eosinophils (%) (Auto) 1.9, Basophils (%) (Auto ) 0.8, Erythrocyte Sedimentation Rate 38H, Activated Partial Thromboplast Time 30, Sodium Level 132L, Potassium Level 3.6, Chloride Level 100, Carbon Dioxide Level 24, Anion Gap 8, Blood Urea Nitrogen 10, Creatinine 0.7, Estimat Glomerular Filtration Rate > 60, Glucose Level 287#H, Calcium Level 8.4L, Phosphorus Level 3.2, Magnesium Level 1.5L, Total Bilirubin 0.2, Aspartate Amino Transf (AST/SGOT) 20, Alanine Aminotransferase (ALT/SGPT) 20, Alkaline Phosphatase 154H, C-Reactive Protein, Quantitative 2.1H, Total Protein 7.1, Albumin 2.8L, Globulin 4.3, Albumin/Globulin Ratio 0.7L, Amylase Level 17L, Lipase 84 Current Medications Medications (Trade) Dose Ordered Sig/Greta Route PRN Reason Start Time Stop Time Status Last Admin Dose Admin Acetaminophen (Tylenol) 650 mg Q4H PRN ORAL fever 09/30/18 10:30 10/30/18 10:29 Dextrose (Dextrose 50%) 25 ml Q30M PRN IV Hypoglycemia 09/30/18 20:00 10/30/18 19:58 Dextrose (Dextrose 50%) 50 ml Q30M PRN IV hypoglycemia 09/30/18 20:00 10/30/18 19:59 Diphenhydramine HCl (Benadryl) 25 mg Q6H PRN ORAL Itching/Pruritis 09/30/18 10:30 10/30/18 10:29 Heparin Sodium (Porcine) (Heparin 5000 units/ml) 5,000 units EVERY 12 HOURS SUBQ 09/30/18 21:00 10/30/18 20:59 10/01/18 08:42 Insulin Aspart (NovoLOG) BEFORE MEALS AND HS SUBQ 09/30/18 21:00 10/30/18 20:59 10/01/18 12:43 Morphine Sulfate (Morphine Sulfate) 4 mg Q4H PRN IVP Severe Pain (Pain Scale 7-10) 09/30/18 20:00 10/07/18 19:59 10/01/18 14:15 Nitroglycerin (Ntg) 0.4 mg Q5M X 3 DOSES PRN SL Prn Chest Pain 09/30/18 10:30 10/30/18 10:29 Ondansetron HCl (Zofran) 4 mg Q6H PRN IVP Nausea & Vomiting 09/30/18 10:30 10/30/18 10:29 Polyethylene Glycol (Miralax) 17 gm HSPRN PRN ORAL Constipation 09/30/18 10:30 10/30/18 10:29 Sodium Chloride 1,000 ml @ 75 mls/hr [id number] IV 09/30/18 11:01 10/30/18 11:00 10/01/18 04:18 Temazepam (Restoril) 15 mg HSPRN PRN ORAL Insomnia 09/30/18 10:30 10/07/18 10:29 Lavelle Diggs MD Oct 01, 2018 15:46
--- NOTE | 2018-10-01 16:20 | NUR ---
*-* INSURANCE *-* ALL CLINICALS AND REVIEWS HAVE BEEN FAXED TO: [employer]/ [facility]: [place] P- [phone].. (FOR TODAY) F- [phone]...REVIEW/CLINICAL
--- NOTE | 2018-10-01 17:46 | Diagnostic Imaging Report ---
Indication: Abdominal pain Technique: Grayscale and duplex Doppler imaging of the abdomen performed. Comparison: None Findings: The liver is enlarged measuring about 18 cm. Doppler interrogation of the main portal vein shows patency with hepatopedal, monophasic flow. There is no biliary ductal dilitation identified. The CBD measures 4 mm. The gallbladder is unremarkable. There are no gallstones or wall thickening identified. Sonographic mills's sign was negative per technologist. There are pancreatic calcifications present. Aorta is unremarkable IVC is patent. Both kidneys appear unremarkable. There is no hydronephrosis. The spleen is normal in size, contour and echogenicity. There is no free fluid identified. IMPRESSION: Hepatomegaly. No definite gallstones identified. Chronic pancreatitis
--- NOTE | 2018-10-01 18:00 | NUR ---
NURSE NOTES: Patient sitting up and eating dinner,Iv fluids continue to infuse as ordered.Call light within reach.
[2018-10-01] MEDS ORDERED: FLUCONAZOLE100 MG ORAL (18:12)
[2018-10-01] MEDS ORDERED: GABAPENTIN100 MG ORAL (18:12)
[2018-10-01] MEDS ORDERED: VIBRAMYCIN100 MG ORAL (18:12)
[2018-10-01] MEDS ORDERED: VICTOZA 2-0.6 MG/0.1 SUBQ (18:14)
[2018-10-01] MEDS ORDERED: EMPAGLIFLOZIN PO (18:19)
[2018-10-01] MEDS ORDERED: NIZORAL 2% C1 APPLIC TOPIC (18:19)
--- NOTE | 2018-10-01 19:40 | NUR ---
HAND-OFF: Report given to Law PERLA.
--- NOTE | 2018-10-01 19:59 | NUR ---
NURSE NOTES: Patient in bed, awake, alert and verbally responsive. Able to make needs known. Respiration is even and unlabored. Kept clean and comfortable. Complained of pain 9/10, will give PRN pain medication as ordered. Abdomen is soft. Skin is warm and dry to touch. IV site noted, iv fluid is infusing as ordered. Call light is at bedside. Will continue plan of care.
[2018-10-02] VITALS: BP 146/102
[2018-10-02] MEDS: Morphine Sulfate 4mg/ml Inj (IV USE ONLY) IVP PRN ×6 (00:28→22:33)
--- NOTE | 2018-10-02 01:00 | NUR ---
NURSE NOTES: Patient given morphine 4 mg for 10/10 severe pain in her abdomen. She expressed sharp and aching pain. No other distress noted or verbalized during the assessment for pain. Morphine administered at 0028, 10/02/2018. After administering medication, reassessed patient at 0058 for pain. Patient verbalized reduced pain of 4/10. During the reassessment, no distress or discomfort noted or verbalized.
[2018-10-02 04:00] VITALS: BP 152/95
[2018-10-02] MEDS: NovoLOG Insulin Flexpen SUBQ SCH ×4 (06:09→21:21)
--- NOTE | 2018-10-02 06:39 | Pulmonology Progress Note ---
Assessment/Plan Problems: (1) Pancreatitis, acute (2) Diabetes mellitus out of control (3) Chronic calcific pancreatitis Assessment/Plan improving symptomatic treatment pain management GI evaluation appreciated amylase and lipase are negative sliding scale diabetic diet Subjective ROS Limited/Unobtainable: No Constitutional: Reports: no symptoms HEENT: Repors: no symptoms Respiratory: Reports: no symptoms Allergies: Coded Allergies: No Known Allergies (Unverified , 08/04/18) Objective Last 24 Hour Vital Signs Date Time Temp Pulse Resp B/P (MAP) Pulse Ox O2 Delivery O2 Flow Rate FiO2 10/02/18 04:00 98.6 81 18 152/95 (114) 96 10/02/18 00:00 99.0 93 18 146/102 (117) 97 10/01/18 21:30 Room Air 10/01/18 20:00 99.0 85 18 156/106 (123) 97 10/01/18 16:00 98.8 18 146/96 (113) 96 10/01/18 12:00 98.3 81 17 133/84 (100) 96 10/01/18 09:00 Room Air 10/01/18 08:00 99.0 84 17 130/80 (97) 95 Intake and Output 10/01/18 10/02/18 19:00 07:00 Intake Total 1124 ml 926 ml Balance 1124 ml 926 ml Intake Oral 600 ml 600 ml IV Total 524 ml 326 ml # Voids 6 2 Objective General Appearance: WD/WN HEENT: normocephalic, atraumatic Respiratory/Chest: chest wall non-tender, lungs clear Breasts: no masses Cardiovascular: normal rate Abdomen: soft, non tender, non distended, no scars Extremities: no cyanosis Skin: no rash Current Medications Medications (Trade) Dose Ordered Sig/Greta Route PRN Reason Start Time Stop Time Status Last Admin Dose Admin Acetaminophen (Tylenol) 650 mg Q4H PRN ORAL fever 09/30/18 10:30 10/30/18 10:29 Dextrose (Dextrose 50%) 25 ml Q30M PRN IV Hypoglycemia 09/30/18 20:00 10/30/18 19:58 Dextrose (Dextrose 50%) 50 ml Q30M PRN IV hypoglycemia 09/30/18 20:00 10/30/18 19:59 Diphenhydramine HCl (Benadryl) 25 mg Q6H PRN ORAL Itching/Pruritis 09/30/18 10:30 10/30/18 10:29 Heparin Sodium (Porcine) (Heparin 5000 units/ml) 5,000 units EVERY 12 HOURS SUBQ 09/30/18 21:00 10/30/18 20:59 10/01/18 20:15 Insulin Aspart (NovoLOG) BEFORE MEALS AND HS SUBQ 09/30/18 21:00 10/30/18 20:59 10/02/18 06:09 Morphine Sulfate (Morphine Sulfate) 4 mg Q4H PRN IVP Severe Pain (Pain Scale 7-10) 09/30/18 20:00 10/07/18 19:59 10/02/18 04:18 Nitroglycerin (Ntg) 0.4 mg Q5M X 3 DOSES PRN SL Prn Chest Pain 09/30/18 10:30 10/30/18 10:29 Ondansetron HCl (Zofran) 4 mg Q6H PRN IVP Nausea & Vomiting 09/30/18 10:30 10/30/18 10:29 Polyethylene Glycol (Miralax) 17 gm HSPRN PRN ORAL Constipation 09/30/18 10:30 10/30/18 10:29 Sodium Chloride 1,000 ml @ 75 mls/hr [id number] IV 09/30/18 11:01 10/30/18 11:00 10/02/18 02:42 Temazepam (Restoril) 15 mg HSPRN PRN ORAL Insomnia 09/30/18 10:30 10/07/18 10:29 Lavelle Diggs MD Oct 02, 2018 06:39
[2018-10-02 07:13] LABS: BASOPHILS % (AUTO) 0.8 % (0.0-2.0); EOSINOPHILS % (AUTO) 2.1 % (0.0-3.0); HEMATOCRIT 38.1 % (37.0-47.0); HEMOGLOBIN 12.4 G/DL (12.0-16.0); LYMPHOCYTES % (AUTO) 26.6 % (20.0-45.0); MEAN CORPUSCULAR VOLUME 86 FL (80-99); NEUTROPHILS % (AUTO) 65.5 % (45.0-75.0); PLATELET COUNT 228 K/UL (150-450); RED BLOOD COUNT 4.43 M/UL (4.20-5.40); RED CELL DISTRIBUTION WIDTH 17.3 % (11.6-14.8); WHITE BLOOD COUNT 6.3 K/UL (4.8-10.8)
--- NOTE | 2018-10-02 07:29 | NUR ---
HAND-OFF: Report given to MINDA Mayer.
[2018-10-02 07:40] LABS: ALANINE AMINOTRANSFERASE 20 U/L (12-78); ALBUMIN/GLOBULIN RATIO 0.7 (1.0-2.7); ALKALINE PHOSPHATASE 151 U/L (46-116); ANION GAP 7 mmol/L (5-15); ASPARTATE AMINO TRANSFERASE 21 U/L (15-37); BILIRUBIN,TOTAL 0.3 MG/DL (0.2-1.0); BLOOD UREA NITROGEN 3 mg/dL (7-18); CALCIUM 8.9 MG/DL (8.5-10.1); CARBON DIOXIDE 26 MMOL/L (21-32); CHLORIDE 99 MMOL/L (98-107); CREATININE 0.6 MG/DL (0.55-1.30); POTASSIUM 3.8 MMOL/L (3.5-5.1); SODIUM 132 MMOL/L (136-145)
--- NOTE | 2018-10-02 07:46 | NUR ---
NURSE NOTES: Patient alert x4, on room air, no sign of distress and shortness of breath; no sing of chest pain; IV Left-wrist NS 75cc running; bed at lowest position, side rails up x2, breaks engaged. call light within reach. will keep monitoring.
[2018-10-02 08:00] VITALS: BP 148/102
[2018-10-02] MEDS: Heparin 5000 units/ml inj SUBQ SCH ×2 (08:43→21:00)
--- NOTE | 2018-10-02 10:28 | Infectious Diseases Prog Note ---
Assessment/Plan Assessment/Plan Assessment/Plan: Ms. Warren is a 43 yo female with PMHx of DM and etOh abuse who presented to the ED with 4 days of abdominal pain with N/V. Pancreatitis vs viral gastroenteritis Aferbile and no Leukcoytosis CT Abd 09.30.18 - Acute on chronic pancreatitis. No phlegmon, abscess or pseudocyst identified. Probable gallstones. No evidence of biliary ductal dilatation. Hepatomegaly Small retroperitoneal and pelvic/inguinal nodes, nonspecific in nature. Status post right fallopian tube implant. Abd US: Hepatomegaly. No definite gallstones identified. Chronic pancreatitis Afebrile No leukocytosis DM Blood Sugars 460 HTN Plan - Monitor off abx - supportive care - Monitor CBC and Temps Thank you for this consult. We will continue to follow the patient during this hospitalization Subjective Allergies: Coded Allergies: No Known Allergies (Unverified , 08/04/18) Objective Vital Signs Last 24 Hour Vital Signs Date Time Temp Pulse Resp B/P (MAP) Pulse Ox O2 Delivery O2 Flow Rate FiO2 10/02/18 09:11 98.8 10/02/18 09:00 Room Air 10/02/18 08:00 98.8 81 19 148/102 (117) 96 10/02/18 04:00 98.6 81 18 152/95 (114) 96 10/02/18 00:00 99.0 93 18 146/102 (117) 97 10/01/18 21:30 Room Air 10/01/18 20:00 99.0 85 18 156/106 (123) 97 10/01/18 16:00 98.8 18 146/96 (113) 96 10/01/18 12:00 98.3 81 17 133/84 (100) 96 Height (Feet): 5 Height (Inches): 2.00 Weight (Pounds): 211 Objective Gen: NAD HEENT: NCAT, MMM, EOMI, PERRL, No Oral lesion, no scleral icterus NECK: full range of motion, supple, no meningismus, No LAD, No JVD LUNGS: CTAB, No W/C, No Accessory muscle use CARDS: RRR, S1, S2, No M/R/G, ABD: Soft, TTP, ND, No R/G, + BS, No HSM, No Masses : Deferred Ext: C/C/E, Pulses 2+ B/L (DP, Rad): NEURO: A/O x 4, Strength and Sensation Grossly intact PSYCH: Depressed SKIN: Warm/dry, No rashes Laboratory Tests Test 10/02/18 06:15 White Blood Count 6.3 K/UL (4.8-10.8) Red Blood Count 4.43 M/UL (4.20-5.40) Hemoglobin 12.4 G/DL (12.0-16.0) Hematocrit 38.1 % (37.0-47.0) Mean Corpuscular Volume 86 FL (80-99) Mean Corpuscular Hemoglobin 28.1 PG (27.0-31.0) Mean Corpuscular Hemoglobin Concent 32.6 G/DL (32.0-36.0) Red Cell Distribution Width 17.3 % (11.6-14.8) H Platelet Count 228 K/UL (150-450) Mean Platelet Volume 6.5 FL (6.5-10.1) Neutrophils (%) (Auto) 65.5 % (45.0-75.0) Lymphocytes (%) (Auto) 26.6 % (20.0-45.0) Monocytes (%) (Auto) 5.0 % (1.0-10.0) Eosinophils (%) (Auto) 2.1 % (0.0-3.0) Basophils (%) (Auto) 0.8 % (0.0-2.0) Sodium Level 132 MMOL/L (136-145) L Potassium Level 3.8 MMOL/L (3.5-5.1) Chloride Level 99 MMOL/L (98-107) Carbon Dioxide Level 26 MMOL/L (21-32) Anion Gap 7 mmol/L (5-15) Blood Urea Nitrogen 3 mg/dL (7-18) L Creatinine 0.6 MG/DL (0.55-1.30) Estimat Glomerular Filtration Rate > 60 mL/min (>60) Glucose Level 267 MG/DL (74-106) H Calcium Level 8.9 MG/DL (8.5-10.1) Total Bilirubin 0.3 MG/DL (0.2-1.0) Aspartate Amino Transf (AST/SGOT) 21 U/L (15-37) Alanine Aminotransferase (ALT/SGPT) 20 U/L (12-78) Alkaline Phosphatase 151 U/L (46-116) H Total Protein 7.5 G/DL (6.4-8.2) Albumin 3.0 G/DL (3.4-5.0) L Globulin 4.5 g/dL Albumin/Globulin Ratio 0.7 (1.0-2.7) L Current Medications Medications (Trade) Dose Ordered Sig/Greta Route PRN Reason Start Time Stop Time Status Last Admin Dose Admin Acetaminophen (Tylenol) 650 mg Q4H PRN ORAL fever 09/30/18 10:30 10/30/18 10:29 Dextrose (Dextrose 50%) 25 ml Q30M PRN IV Hypoglycemia 09/30/18 20:00 10/30/18 19:58 Dextrose (Dextrose 50%) 50 ml Q30M PRN IV hypoglycemia 09/30/18 20:00 10/30/18 19:59 Diphenhydramine HCl (Benadryl) 25 mg Q6H PRN ORAL Itching/Pruritis 09/30/18 10:30 10/30/18 10:29 Heparin Sodium (Porcine) (Heparin 5000 units/ml) 5,000 units EVERY 12 HOURS SUBQ 09/30/18 21:00 10/30/18 20:59 10/02/18 08:43 Insulin Aspart (NovoLOG) BEFORE MEALS AND HS SUBQ 09/30/18 21:00 10/30/18 20:59 10/02/18 06:09 Morphine Sulfate (Morphine Sulfate) 4 mg Q4H PRN IVP Severe Pain (Pain Scale 7-10) 09/30/18 20:00 10/07/18 19:59 10/02/18 08:41 Nitroglycerin (Ntg) 0.4 mg Q5M X 3 DOSES PRN SL Prn Chest Pain 09/30/18 10:30 10/30/18 10:29 Ondansetron HCl (Zofran) 4 mg Q6H PRN IVP Nausea & Vomiting 09/30/18 10:30 10/30/18 10:29 Polyethylene Glycol (Miralax) 17 gm HSPRN PRN ORAL Constipation 09/30/18 10:30 10/30/18 10:29 Sodium Chloride 1,000 ml @ 75 mls/hr [id number] IV 09/30/18 11:01 10/30/18 11:00 10/02/18 02:42 Temazepam (Restoril) 15 mg HSPRN PRN ORAL Insomnia 09/30/18 10:30 10/07/18 10:29 Lazara Dozier M.D. Oct 02, 2018 10:28
--- NOTE | 2018-10-02 11:00 | NUR ---
NURSE NOTES: Specimen collecting provided for stool, will keep monitoring.
[2018-10-02 12:00] VITALS: BP 151/110
[2018-10-02 16:00] VITALS: BP 147/104
--- NOTE | 2018-10-02 17:14 | General Progress Note ---
Assessment/Plan Status: stable Assessment/Plan: Assessment/Plan Problems: (1) Chronic calcific pancreatitis ICD Codes: K86.1 - Other chronic pancreatitis SNOMED: 012075854 (2) History of diabetes mellitus ICD Codes: Z86.39 - Personal history of other endocrine, nutritional and metabolic disease SNOMED: 139766939 (3) Ventral hernia ICD Codes: K43.9 - Ventral hernia without obstruction or gangrene SNOMED: 336969544 (4) Diabetes mellitus out of control ICD Codes: E11.65 - Type 2 diabetes mellitus with hyperglycemia SNOMED: 81070569, 708905684 Qualifiers: Qualified Codes: E11.65 - Type 2 diabetes mellitus with hyperglycemia (5) Pancreatitis, acute ICD Codes: K85.90 - Acute pancreatitis without necrosis or infection, unspecified SNOMED: 500853451 Qualifiers: Qualified Codes: K85.90 - Acute pancreatitis without necrosis or infection, unspecified (6) Diarrhea ICD Codes: R19.7 - Diarrhea, unspecified SNOMED: 34950037 (7) Abdominal pain ICD Codes: R10.9 - Unspecified abdominal pain SNOMED: 51098873 Qualifiers: Qualified Codes: R10.84 - Generalized abdominal pain Status: stable Assessment/Plan Abdominal pelvic CT reviewed, acute pancreatitis with the presence of cholelithiasis. No biliary ductal dilation noted. U tox unremarkable Diarrhea would avoid Victoza given pancreatitis Acute management for pancreatitis pain management Zofran as needed soft diet PPI Send for C. difficile panel r/o infectious diarrhea if patient continues to have watery stools electrolyte correction follow labs, abdominal US Subjective Allergies: Coded Allergies: No Known Allergies (Unverified , 08/04/18) Subjective some abdominal pain says has not had EtOH panreatitis for 12 years Objective Last 24 Hour Vital Signs Date Time Temp Pulse Resp B/P (MAP) Pulse Ox O2 Delivery O2 Flow Rate FiO2 10/02/18 16:00 98.4 78 18 147/104 (118) 95 10/02/18 14:27 98.3 10/02/18 12:00 98.3 79 19 151/110 (124) 10/02/18 09:00 Room Air 10/02/18 08:00 98.8 81 19 148/102 (117) 96 10/02/18 04:00 98.6 81 18 152/95 (114) 96 10/02/18 00:00 99.0 93 18 146/102 (117) 97 10/01/18 21:30 Room Air 10/01/18 20:00 99.0 85 18 156/106 (123) 97 Intake and Output 10/01/18 10/02/18 19:00 07:00 Intake Total 1124 ml 1001 ml Balance 1124 ml 1001 ml Intake Oral 600 ml 600 ml IV Total 524 ml 401 ml # Voids 6 2 Laboratory Tests 10/02/18 06:15: White Blood Count 6.3, Red Blood Count 4.43, Hemoglobin 12.4, Hematocrit 38.1, Mean Corpuscular Volume 86, Mean Corpuscular Hemoglobin 28.1, Mean Corpuscular Hemoglobin Concent 32.6, Red Cell Distribution Width 17.3H, Platelet Count 228, Mean Platelet Volume 6.5, Neutrophils (%) (Auto) 65.5, Lymphocytes (%) (Auto) 26.6, Monocytes (%) (Auto) 5.0, Eosinophils (%) (Auto) 2.1, Basophils (%) (Auto ) 0.8, Sodium Level 132L, Potassium Level 3.8, Chloride Level 99, Carbon Dioxide Level 26, Anion Gap 7, Blood Urea Nitrogen 3L, Creatinine 0.6, Estimat Glomerular Filtration Rate > 60, Glucose Level 267H, Calcium Level 8.9, Total Bilirubin 0.3, Aspartate Amino Transf (AST/SGOT) 21, Alanine Aminotransferase ( ALT/SGPT) 20, Alkaline Phosphatase 151H, Total Protein 7.5, Albumin 3.0L, Globulin 4.5, Albumin/Globulin Ratio 0.7L Height (Feet): 5 Height (Inches): 2.00 Weight (Pounds): 211 Objective WD obese NCAT supple CTA RR abd soft no edema Deyanira Harp MD Oct 02, 2018 17:14
--- NOTE | 2018-10-02 19:21 | Internal Med Progress Note ---
Subjective Date of Service: Oct 02, 2018 Physician Name Marshal Gilbert Attending Physician Shree Mcintyre MD Current Medications Medications (Trade) Dose Ordered Sig/Greta Route PRN Reason Start Time Stop Time Status Last Admin Dose Admin Acetaminophen (Tylenol) 650 mg Q4H PRN ORAL fever 09/30/18 10:30 10/30/18 10:29 Dextrose (Dextrose 50%) 25 ml Q30M PRN IV Hypoglycemia 09/30/18 20:00 10/30/18 19:58 Dextrose (Dextrose 50%) 50 ml Q30M PRN IV hypoglycemia 09/30/18 20:00 10/30/18 19:59 Diphenhydramine HCl (Benadryl) 25 mg Q6H PRN ORAL Itching/Pruritis 09/30/18 10:30 10/30/18 10:29 Heparin Sodium (Porcine) (Heparin 5000 units/ml) 5,000 units EVERY 12 HOURS SUBQ 09/30/18 21:00 10/30/18 20:59 10/02/18 08:43 Insulin Aspart (NovoLOG) BEFORE MEALS AND HS SUBQ 09/30/18 21:00 10/30/18 20:59 10/02/18 16:56 Morphine Sulfate (Morphine Sulfate) 4 mg Q4H PRN IVP Severe Pain (Pain Scale 7-10) 09/30/18 20:00 10/07/18 19:59 10/02/18 18:22 Nitroglycerin (Ntg) 0.4 mg Q5M X 3 DOSES PRN SL Prn Chest Pain 09/30/18 10:30 10/30/18 10:29 Ondansetron HCl (Zofran) 4 mg Q6H PRN IVP Nausea & Vomiting 09/30/18 10:30 10/30/18 10:29 Polyethylene Glycol (Miralax) 17 gm HSPRN PRN ORAL Constipation 09/30/18 10:30 10/30/18 10:29 Sodium Chloride 1,000 ml @ 75 mls/hr [id number] IV 09/30/18 11:01 10/30/18 11:00 10/02/18 16:21 Temazepam (Restoril) 15 mg HSPRN PRN ORAL Insomnia 09/30/18 10:30 10/07/18 10:29 Allergies: Coded Allergies: No Known Allergies (Unverified , 08/04/18) ROS Limited/Unobtainable: No Constitutional: Reports: no symptoms HEENT: Reports: no symptoms Cardiovascular: Reports: no symptoms Respiratory: Reports: no symptoms Gastrointestinal/Abdominal: Reports: abdominal pain, nausea, vomiting Genitourinary: Reports: no symptoms Neurologic/Psychiatric: Reports: no symptoms Subjective 43 YO F admitted with nausea and vomiting. Now pancreatitis. Cover for Int Jorge -Dr Mcintyre Objective Last Vital Signs Date Time Temp Pulse Resp B/P (MAP) Pulse Ox O2 Delivery O2 Flow Rate FiO2 10/02/18 18:52 98.4 10/02/18 16:00 78 18 147/104 (118) 95 10/02/18 09:00 Room Air Laboratory Tests Test 10/02/18 06:15 White Blood Count 6.3 K/UL (4.8-10.8) Red Blood Count 4.43 M/UL (4.20-5.40) Hemoglobin 12.4 G/DL (12.0-16.0) Hematocrit 38.1 % (37.0-47.0) Mean Corpuscular Volume 86 FL (80-99) Mean Corpuscular Hemoglobin 28.1 PG (27.0-31.0) Mean Corpuscular Hemoglobin Concent 32.6 G/DL (32.0-36.0) Red Cell Distribution Width 17.3 % (11.6-14.8) H Platelet Count 228 K/UL (150-450) Mean Platelet Volume 6.5 FL (6.5-10.1) Neutrophils (%) (Auto) 65.5 % (45.0-75.0) Lymphocytes (%) (Auto) 26.6 % (20.0-45.0) Monocytes (%) (Auto) 5.0 % (1.0-10.0) Eosinophils (%) (Auto) 2.1 % (0.0-3.0) Basophils (%) (Auto) 0.8 % (0.0-2.0) Sodium Level 132 MMOL/L (136-145) L Potassium Level 3.8 MMOL/L (3.5-5.1) Chloride Level 99 MMOL/L (98-107) Carbon Dioxide Level 26 MMOL/L (21-32) Anion Gap 7 mmol/L (5-15) Blood Urea Nitrogen 3 mg/dL (7-18) L Creatinine 0.6 MG/DL (0.55-1.30) Estimat Glomerular Filtration Rate > 60 mL/min (>60) Glucose Level 267 MG/DL (74-106) H Calcium Level 8.9 MG/DL (8.5-10.1) Total Bilirubin 0.3 MG/DL (0.2-1.0) Aspartate Amino Transf (AST/SGOT) 21 U/L (15-37) Alanine Aminotransferase (ALT/SGPT) 20 U/L (12-78) Alkaline Phosphatase 151 U/L (46-116) H Total Protein 7.5 G/DL (6.4-8.2) Albumin 3.0 G/DL (3.4-5.0) L Globulin 4.5 g/dL Albumin/Globulin Ratio 0.7 (1.0-2.7) L Intake and Output 10/01/18 10/02/18 19:00 07:00 Intake Total 1124 ml 1001 ml Balance 1124 ml 1001 ml Intake Oral 600 ml 600 ml IV Total 524 ml 401 ml # Voids 6 2 Objective PHYSICAL EXAMINATION: GENERAL: The patient is a well-developed and well-nourished obese female, in no apparent distress. HEENT: Eyes, pupils are equal and responsive to light and accommodation. Extraocular movements are intact. NECK: Supple without lymphadenopathy. CHEST: Lungs are clear to auscultation bilaterally without wheezes or rales. CARDIOVASCULAR: Regular rhythm and rate. S1 and S2 are normal without murmurs, rubs, or gallops. ABDOMEN: Soft, distended with positive bowel sounds. There is tenderness to palpation in all four quadrants. There is no rebound or guarding noted. EXTREMITIES: Negative for clubbing, cyanosis, or edema. RECTAL/GENITAL: Refused. NEUROLOGIC: Cranial nerves II through XII are grossly intact without focal deficits. Motor strength is 5/5 bilaterally. Deep tendon reflexes are 2+ plantar. Assessment/Plan Assessment/Plan ASSESSMENT: This is a 43-year-old female. 1. Abdominal pain. 2. Nausea with vomiting and diarrhea. 3. Diabetes type 2. 4. Hypertension. 5. Pancreatitis 6. cholelithiasis TREATMENT: 1. Abdominal pain/nausea/vomiting/diarrhea. A Gastroenterology consultation has been obtained with Dr. Monty Jaimes. The patient may have gastroenteritis. We will follow recommendations of Gastroenterology. 2. Diabetes type 2, uncontrolled. The patient has been placed on a NovoLog sliding scale. 3. Hypertension. Continue amlodipine as above. Marshal Gilbert MD Oct 02, 2018 19:21
--- NOTE | 2018-10-02 19:25 | NUR ---
HAND-OFF: Report given to Luis Alberto/Jonnie.
[2018-10-02 20:00] VITALS: BP 144/95
--- NOTE | 2018-10-02 20:18 | NUR ---
NURSE NOTES: Patient in bed, awake, alert and verbally responsive. Able to make needs known. Respiration is even and unlabored. NO complaint of pain or discomfort at the moment. Abdomen is soft and non distended. Skin is intact, warm and dry to touch. Bed in low and locked position. Provide safe environment. Kept clean and comfortable. IV site noted, iv fluid is infusing as ordered. Will continue plan of care. Call light is at bedside.
--- NOTE | 2018-10-02 21:23 | NUR ---
NURSE NOTES: Patient refused heparin, informed the risks and benefits, still refused. Patient is alert x 4. Call light is at bedside. WIll conitnue plan of care.
[2018-10-03] VITALS (7 sets, daily range): BP systolic 126–157; BP diastolic 93–117
[2018-10-03] MEDS: Morphine Sulfate 4mg/ml Inj (IV USE ONLY) IVP PRN ×5 (02:31→22:02)
[2018-10-03] MEDS: NovoLOG Insulin Flexpen SUBQ SCH ×4 (06:17→22:03)
--- NOTE | 2018-10-03 06:37 | NUR ---
Patient is alert, in bed and call light is at bedside. Administered pain medication.
--- NOTE | 2018-10-03 07:02 | NUR ---
HAND-OFF: Report given to Zenaida Mayer.
--- NOTE | 2018-10-03 07:14 | NUR ---
NURSE NOTES: Patient alert x4, on room air, no sign of distress and no sign of shortness of breath; IV Left-wrist, fluid running NS at 75cc; bed at lowest position, side rails up x2, breaks engaged. call light within reach. will keep monitoring.
[2018-10-03 07:17] LABS: BASOPHILS % (AUTO) 1.1 % (0.0-2.0); EOSINOPHILS % (AUTO) 1.3 % (0.0-3.0); HEMATOCRIT 36.9 % (37.0-47.0); HEMOGLOBIN 12.1 G/DL (12.0-16.0); LYMPHOCYTES % (AUTO) 28.5 % (20.0-45.0); MEAN CORPUSCULAR VOLUME 86 FL (80-99); PLATELET COUNT 213 K/UL (150-450); RED BLOOD COUNT 4.28 M/UL (4.20-5.40); RED CELL DISTRIBUTION WIDTH 17.4 % (11.6-14.8); WHITE BLOOD COUNT 5.5 K/UL (4.8-10.8)
[2018-10-03 07:53] LABS: ALANINE AMINOTRANSFERASE 21 U/L (12-78); ALBUMIN 2.9 G/DL (3.4-5.0); ALBUMIN/GLOBULIN RATIO 0.7 (1.0-2.7); ALKALINE PHOSPHATASE 129 U/L (46-116); ANION GAP 8 mmol/L (5-15); ASPARTATE AMINO TRANSFERASE 23 U/L (15-37); BILIRUBIN,TOTAL 0.3 MG/DL (0.2-1.0); BLOOD UREA NITROGEN 8 mg/dL (7-18); CALCIUM 9.1 MG/DL (8.5-10.1); CARBON DIOXIDE 23 MMOL/L (21-32); CHLORIDE 97 MMOL/L (98-107); CREATININE 0.7 MG/DL (0.55-1.30); PHOSPHORUS 3.3 MG/DL (2.5-4.9); POTASSIUM 3.5 MMOL/L (3.5-5.1); SODIUM 128 MMOL/L (136-145)
[2018-10-03] MEDS: Heparin 5000 units/ml inj SUBQ SCH ×2 (08:28→22:01)
--- NOTE | 2018-10-03 09:33 | NUR ---
NURSE NOTES: Patient's BP is running between 140's to 150's, patient has also a history of BP. Patient's is conceded and asking to get BP medication. I communicated Dr Diggs regarding patient's concern. Waiting for order.
--- NOTE | 2018-10-03 11:50 | NUR ---
NURSE NOTES: Patient's Mg 1.6, I communicated MD Diggs; order received and carried out as ordered.
--- NOTE | 2018-10-03 12:10 | General Progress Note ---
Assessment/Plan Status: stable Assessment/Plan: Assessment/Plan Problems: (1) Chronic calcific pancreatitis ICD Codes: K86.1 - Other chronic pancreatitis SNOMED: 349132346 (2) History of diabetes mellitus ICD Codes: Z86.39 - Personal history of other endocrine, nutritional and metabolic disease SNOMED: 024904286 (3) Ventral hernia ICD Codes: K43.9 - Ventral hernia without obstruction or gangrene SNOMED: 266475097 (4) Diabetes mellitus out of control ICD Codes: E11.65 - Type 2 diabetes mellitus with hyperglycemia SNOMED: 87178999, 838556987 Qualifiers: Qualified Codes: E11.65 - Type 2 diabetes mellitus with hyperglycemia (5) Pancreatitis, acute ICD Codes: K85.90 - Acute pancreatitis without necrosis or infection, unspecified SNOMED: 136782745 Qualifiers: Qualified Codes: K85.90 - Acute pancreatitis without necrosis or infection, unspecified (6) Diarrhea ICD Codes: R19.7 - Diarrhea, unspecified SNOMED: 72317718 (7) Abdominal pain ICD Codes: R10.9 - Unspecified abdominal pain SNOMED: 83776592 Qualifiers: Qualified Codes: R10.84 - Generalized abdominal pain Status: stable Assessment/Plan Abdominal pelvic CT reviewed, acute pancreatitis with the presence of cholelithiasis. No biliary ductal dilation noted. U tox unremarkable Diarrhea would avoid Victoza given pancreatitis Acute management for pancreatitis pain management Zofran as needed soft diet PPI Send for C. difficile panel r/o infectious diarrhea if patient continues to have watery stools electrolyte correction follow labs, abdominal US Subjective Allergies: Coded Allergies: No Known Allergies (Unverified , 08/04/18) Subjective anxious today tolerating PO Objective Last 24 Hour Vital Signs Date Time Temp Pulse Resp B/P (MAP) Pulse Ox O2 Delivery O2 Flow Rate FiO2 10/03/18 12:00 97.8 74 20 126/93 (104) 96 10/03/18 11:51 97.3 10/03/18 11:21 98 145/107 10/03/18 09:00 Room Air 10/03/18 08:00 97.3 98 18 145/107 (120) 95 10/03/18 04:00 97.7 67 18 157/117 (130) 97 10/03/18 00:00 98.2 84 18 153/102 (119) 99 10/02/18 21:00 Room Air 10/02/18 20:00 97.9 79 18 144/95 (111) 98 10/02/18 16:00 98.4 78 18 147/104 (118) 95 Intake and Output 10/02/18 10/03/18 19:00 07:00 Intake Total 825 ml 1350 ml Output Total 250 ml Balance 825 ml 1100 ml IV Total 825 ml 150 ml Other 1200 ml Output Urine Total 250 ml Laboratory Tests 10/03/18 06:50: White Blood Count 5.5, Red Blood Count 4.28, Hemoglobin 12.1, Hematocrit 36.9L, Mean Corpuscular Volume 86, Mean Corpuscular Hemoglobin 28.2, Mean Corpuscular Hemoglobin Concent 32.8, Red Cell Distribution Width 17.4H, Platelet Count 213, Mean Platelet Volume 6.6, Neutrophils (%) (Auto) 63.0, Lymphocytes (%) (Auto) 28.5, Monocytes (%) (Auto) 6.0, Eosinophils (%) (Auto) 1.3, Basophils (%) (Auto ) 1.1, Erythrocyte Sedimentation Rate 44H, Sodium Level 128L, Potassium Level 3.5, Chloride Level 97L, Carbon Dioxide Level 23, Anion Gap 8, Blood Urea Nitrogen 8, Creatinine 0.7, Estimat Glomerular Filtration Rate > 60, Glucose Level 269H, Calcium Level 9.1, Phosphorus Level 3.3, Magnesium Level 1.6L, Total Bilirubin 0.3, Aspartate Amino Transf (AST/SGOT) 23, Alanine Aminotransferase (ALT/SGPT) 21, Alkaline Phosphatase 129H, C-Reactive Protein, Quantitative 1.8H, Total Protein 7.0, Albumin 2.9L, Globulin 4.1, Albumin/ Globulin Ratio 0.7L Height (Feet): 5 Height (Inches): 2.00 Weight (Pounds): 211 Objective WD obese NCAT supple CTA RR abd soft no edema Deyanira Harp MD Oct 03, 2018 12:10
--- NOTE | 2018-10-03 14:55 | Pulmonology Progress Note ---
Assessment/Plan Problems: (1) Pancreatitis, acute (2) Diabetes mellitus out of control (3) Chronic calcific pancreatitis Assessment/Plan improving symptomatic treatment pain management GI evaluation appreciated amylase and lipase are negative sliding scale diabetic diet Subjective ROS Limited/Unobtainable: No Constitutional: Reports: no symptoms HEENT: Repors: no symptoms Allergies: Coded Allergies: No Known Allergies (Unverified , 08/04/18) Objective Last 24 Hour Vital Signs Date Time Temp Pulse Resp B/P (MAP) Pulse Ox O2 Delivery O2 Flow Rate FiO2 10/03/18 12:00 97.8 74 20 126/93 (104) 96 10/03/18 11:51 97.3 10/03/18 11:21 98 145/107 10/03/18 09:00 Room Air 10/03/18 08:00 97.3 98 18 145/107 (120) 95 10/03/18 04:00 97.7 67 18 157/117 (130) 97 10/03/18 00:00 98.2 84 18 153/102 (119) 99 10/02/18 21:00 Room Air 10/02/18 20:00 97.9 79 18 144/95 (111) 98 10/02/18 16:00 98.4 78 18 147/104 (118) 95 Intake and Output 10/02/18 10/03/18 19:00 07:00 Intake Total 825 ml 1350 ml Output Total 250 ml Balance 825 ml 1100 ml IV Total 825 ml 150 ml Other 1200 ml Output Urine Total 250 ml Objective General Appearance: WD/WN HEENT: normocephalic, atraumatic Respiratory/Chest: chest wall non-tender, lungs clear Breasts: no masses Cardiovascular: normal rate Abdomen: soft, non tender, non distended, no scars Extremities: no cyanosis Skin: no rash Laboratory Tests 10/03/18 06:50: White Blood Count 5.5, Red Blood Count 4.28, Hemoglobin 12.1, Hematocrit 36.9L, Mean Corpuscular Volume 86, Mean Corpuscular Hemoglobin 28.2, Mean Corpuscular Hemoglobin Concent 32.8, Red Cell Distribution Width 17.4H, Platelet Count 213, Mean Platelet Volume 6.6, Neutrophils (%) (Auto) 63.0, Lymphocytes (%) (Auto) 28.5, Monocytes (%) (Auto) 6.0, Eosinophils (%) (Auto) 1.3, Basophils (%) (Auto ) 1.1, Erythrocyte Sedimentation Rate 44H, Sodium Level 128L, Potassium Level 3.5, Chloride Level 97L, Carbon Dioxide Level 23, Anion Gap 8, Blood Urea Nitrogen 8, Creatinine 0.7, Estimat Glomerular Filtration Rate > 60, Glucose Level 269H, Calcium Level 9.1, Phosphorus Level 3.3, Magnesium Level 1.6L, Total Bilirubin 0.3, Aspartate Amino Transf (AST/SGOT) 23, Alanine Aminotransferase (ALT/SGPT) 21, Alkaline Phosphatase 129H, C-Reactive Protein, Quantitative 1.8H, Total Protein 7.0, Albumin 2.9L, Globulin 4.1, Albumin/ Globulin Ratio 0.7L Current Medications Medications (Trade) Dose Ordered Sig/Greta Route PRN Reason Start Time Stop Time Status Last Admin Dose Admin Acetaminophen (Tylenol) 650 mg Q4H PRN ORAL fever 09/30/18 10:30 10/30/18 10:29 Amlodipine Besylate (Norvasc) 5 mg DAILY ORAL 10/03/18 10:15 11/02/18 10:14 10/03/18 11:21 Dextrose (Dextrose 50%) 25 ml Q30M PRN IV Hypoglycemia 09/30/18 20:00 10/30/18 19:58 Dextrose (Dextrose 50%) 50 ml Q30M PRN IV hypoglycemia 09/30/18 20:00 10/30/18 19:59 Diphenhydramine HCl (Benadryl) 25 mg Q6H PRN ORAL Itching/Pruritis 09/30/18 10:30 10/30/18 10:29 Heparin Sodium (Porcine) (Heparin 5000 units/ml) 5,000 units EVERY 12 HOURS SUBQ 09/30/18 21:00 10/30/18 20:59 10/03/18 08:28 Insulin Aspart (NovoLOG) BEFORE MEALS AND HS SUBQ 09/30/18 21:00 10/30/18 20:59 10/03/18 11:45 Morphine Sulfate (Morphine Sulfate) 4 mg Q4H PRN IVP Severe Pain (Pain Scale 7-10) 09/30/18 20:00 10/07/18 19:59 10/03/18 11:21 Nitroglycerin (Ntg) 0.4 mg Q5M X 3 DOSES PRN SL Prn Chest Pain 09/30/18 10:30 10/30/18 10:29 Ondansetron HCl (Zofran) 4 mg Q6H PRN IVP Nausea & Vomiting 09/30/18 10:30 10/30/18 10:29 Polyethylene Glycol (Miralax) 17 gm HSPRN PRN ORAL Constipation 09/30/18 10:30 10/30/18 10:29 Sodium Chloride 1,000 ml @ 75 mls/hr [id number] IV 09/30/18 11:01 10/30/18 11:00 10/02/18 16:21 Temazepam (Restoril) 15 mg HSPRN PRN ORAL Insomnia 09/30/18 10:30 10/07/18 10:29 Lavelle Diggs MD Oct 03, 2018 14:55
--- NOTE | 2018-10-03 16:10 | Internal Med Progress Note ---
Subjective Date of Service: Oct 03, 2018 Physician Name Marshal Gilbert Attending Physician Shree Mcintyre MD Current Medications Medications (Trade) Dose Ordered Sig/Greta Route PRN Reason Start Time Stop Time Status Last Admin Dose Admin Acetaminophen (Tylenol) 650 mg Q4H PRN ORAL fever 09/30/18 10:30 10/30/18 10:29 Amlodipine Besylate (Norvasc) 5 mg DAILY ORAL 10/03/18 10:15 11/02/18 10:14 10/03/18 11:21 Dextrose (Dextrose 50%) 25 ml Q30M PRN IV Hypoglycemia 09/30/18 20:00 10/30/18 19:58 Dextrose (Dextrose 50%) 50 ml Q30M PRN IV hypoglycemia 09/30/18 20:00 10/30/18 19:59 Diphenhydramine HCl (Benadryl) 25 mg Q6H PRN ORAL Itching/Pruritis 09/30/18 10:30 10/30/18 10:29 Heparin Sodium (Porcine) (Heparin 5000 units/ml) 5,000 units EVERY 12 HOURS SUBQ 09/30/18 21:00 10/30/18 20:59 10/03/18 08:28 Insulin Aspart (NovoLOG) BEFORE MEALS AND HS SUBQ 09/30/18 21:00 10/30/18 20:59 10/03/18 11:45 Morphine Sulfate (Morphine Sulfate) 4 mg Q4H PRN IVP Severe Pain (Pain Scale 7-10) 09/30/18 20:00 10/07/18 19:59 10/03/18 11:21 Nitroglycerin (Ntg) 0.4 mg Q5M X 3 DOSES PRN SL Prn Chest Pain 09/30/18 10:30 10/30/18 10:29 Ondansetron HCl (Zofran) 4 mg Q6H PRN IVP Nausea & Vomiting 09/30/18 10:30 10/30/18 10:29 Polyethylene Glycol (Miralax) 17 gm HSPRN PRN ORAL Constipation 09/30/18 10:30 10/30/18 10:29 Sodium Chloride 1,000 ml @ 75 mls/hr [id number] IV 09/30/18 11:01 10/30/18 11:00 10/02/18 16:21 Temazepam (Restoril) 15 mg HSPRN PRN ORAL Insomnia 09/30/18 10:30 10/07/18 10:29 Allergies: Coded Allergies: No Known Allergies (Unverified , 08/04/18) ROS Limited/Unobtainable: No Constitutional: Reports: no symptoms HEENT: Reports: no symptoms Cardiovascular: Reports: no symptoms Respiratory: Reports: no symptoms Gastrointestinal/Abdominal: Reports: abdominal pain Genitourinary: Reports: no symptoms Neurologic/Psychiatric: Reports: no symptoms Subjective 43 YO F admitted with nausea and vomiting. Now pancreatitis. Cover for Int Med -Dr Mcintyre. Tolerating soft diet Objective Last Vital Signs Date Time Temp Pulse Resp B/P (MAP) Pulse Ox O2 Delivery O2 Flow Rate FiO2 10/03/18 16:00 98.0 83 19 148/106 (120) 98 10/03/18 09:00 Room Air Laboratory Tests Test 10/03/18 06:50 White Blood Count 5.5 K/UL (4.8-10.8) Red Blood Count 4.28 M/UL (4.20-5.40) Hemoglobin 12.1 G/DL (12.0-16.0) Hematocrit 36.9 % (37.0-47.0) L Mean Corpuscular Volume 86 FL (80-99) Mean Corpuscular Hemoglobin 28.2 PG (27.0-31.0) Mean Corpuscular Hemoglobin Concent 32.8 G/DL (32.0-36.0) Red Cell Distribution Width 17.4 % (11.6-14.8) H Platelet Count 213 K/UL (150-450) Mean Platelet Volume 6.6 FL (6.5-10.1) Neutrophils (%) (Auto) 63.0 % (45.0-75.0) Lymphocytes (%) (Auto) 28.5 % (20.0-45.0) Monocytes (%) (Auto) 6.0 % (1.0-10.0) Eosinophils (%) (Auto) 1.3 % (0.0-3.0) Basophils (%) (Auto) 1.1 % (0.0-2.0) Erythrocyte Sedimentation Rate 44 MM/HR (0-20) H Sodium Level 128 MMOL/L (136-145) L Potassium Level 3.5 MMOL/L (3.5-5.1) Chloride Level 97 MMOL/L (98-107) L Carbon Dioxide Level 23 MMOL/L (21-32) Anion Gap 8 mmol/L (5-15) Blood Urea Nitrogen 8 mg/dL (7-18) Creatinine 0.7 MG/DL (0.55-1.30) Estimat Glomerular Filtration Rate > 60 mL/min (>60) Glucose Level 269 MG/DL (74-106) H Calcium Level 9.1 MG/DL (8.5-10.1) Phosphorus Level 3.3 MG/DL (2.5-4.9) Magnesium Level 1.6 MG/DL (1.8-2.4) L Total Bilirubin 0.3 MG/DL (0.2-1.0) Aspartate Amino Transf (AST/SGOT) 23 U/L (15-37) Alanine Aminotransferase (ALT/SGPT) 21 U/L (12-78) Alkaline Phosphatase 129 U/L (46-116) H C-Reactive Protein, Quantitative 1.8 mg/dL (0.00-0.90) H Total Protein 7.0 G/DL (6.4-8.2) Albumin 2.9 G/DL (3.4-5.0) L Globulin 4.1 g/dL Albumin/Globulin Ratio 0.7 (1.0-2.7) L Intake and Output 10/02/18 10/03/18 19:00 07:00 Intake Total 825 ml 1350 ml Output Total 250 ml Balance 825 ml 1100 ml IV Total 825 ml 150 ml Other 1200 ml Output Urine Total 250 ml Objective PHYSICAL EXAMINATION: GENERAL: The patient is a well-developed and well-nourished obese female, in no apparent distress. HEENT: Eyes, pupils are equal and responsive to light and accommodation. Extraocular movements are intact. NECK: Supple without lymphadenopathy. CHEST: Lungs are clear to auscultation bilaterally without wheezes or rales. CARDIOVASCULAR: Regular rhythm and rate. S1 and S2 are normal without murmurs, rubs, or gallops. ABDOMEN: Soft, distended with positive bowel sounds. There is tenderness to palpation in all four quadrants. There is no rebound or guarding noted. EXTREMITIES: Negative for clubbing, cyanosis, or edema. RECTAL/GENITAL: Refused. NEUROLOGIC: Cranial nerves II through XII are grossly intact without focal deficits. Motor strength is 5/5 bilaterally. Deep tendon reflexes are 2+ plantar. Assessment/Plan Assessment/Plan ASSESSMENT: This is a 43-year-old female. 1. Abdominal pain. 2. Nausea with vomiting and diarrhea. 3. Diabetes type 2. 4. Hypertension. 5. Pancreatitis 6. cholelithiasis TREATMENT: 1. Abdominal pain/nausea/vomiting/diarrhea. A Gastroenterology consultation has been obtained with Dr. Monty Jaimes. The patient may have gastroenteritis. We will follow recommendations of Gastroenterology. 2. Diabetes type 2, uncontrolled. The patient has been placed on a NovoLog sliding scale. 3. Hypertension. Continue amlodipine as above. 4. Advance diet to soft Marshal Gilbert MD Oct 03, 2018 16:10
--- NOTE | 2018-10-03 19:31 | NUR ---
HAND-OFF: Report given to Luis Alberto mckeon "Brian PERLA.
--- NOTE | 2018-10-03 19:59 | NUR ---
NURSE NOTES: Received patient laying comfortably on the bed, self-positioned. Patient is awake, alert, oriented, and verbally responsive to let her needs known. Breathing unlabored and even without signs of distress or discomfort. Right forearm IV site patent running normal saline 75cc/hr. IV dressing intact, dry, and clean. Skin intact and warm to touch. No other discomfort and distress noted. Bed placed at the lowest. Reminded patient to press the call light if any assistance is needed. Call light placed within reach. Vital signs taken.
[2018-10-04] MEDS: Morphine Sulfate 4mg/ml Inj (IV USE ONLY) IVP PRN ×3 (02:04→10:09)
[2018-10-04 04:00] VITALS: BP 132/76
[2018-10-04] MEDS: NovoLOG Insulin Flexpen SUBQ SCH ×2 (05:56→11:33)
--- NOTE | 2018-10-04 07:31 | NUR ---
HAND-OFF: Report given to MINDA Collins.
--- NOTE | 2018-10-04 07:38 | NUR ---
NURSE NOTES: Patient A/O x 4, calm and cooperative. Denies pain. no SOB. call light within reach. will continue to monitor.
[2018-10-04 08:00] VITALS: BP 119/82
[2018-10-04] MEDS: Heparin 5000 units/ml inj SUBQ SCH (09:02)
--- NOTE | 2018-10-04 10:14 | GI Progress Note ---
Assessment/Plan Problems: (1) Chronic calcific pancreatitis ICD Codes: K86.1 - Other chronic pancreatitis SNOMED: 046333976 (2) History of diabetes mellitus ICD Codes: Z86.39 - Personal history of other endocrine, nutritional and metabolic disease SNOMED: 360081115 (3) Ventral hernia ICD Codes: K43.9 - Ventral hernia without obstruction or gangrene SNOMED: 341784626 (4) Diabetes mellitus out of control ICD Codes: E11.65 - Type 2 diabetes mellitus with hyperglycemia SNOMED: 21281375, 872512462 Qualifiers: Qualified Codes: E11.65 - Type 2 diabetes mellitus with hyperglycemia (5) Pancreatitis, acute ICD Codes: K85.90 - Acute pancreatitis without necrosis or infection, unspecified SNOMED: 128167014 Qualifiers: Qualified Codes: K85.90 - Acute pancreatitis without necrosis or infection, unspecified (6) Diarrhea ICD Codes: R19.7 - Diarrhea, unspecified SNOMED: 24793133 (7) Abdominal pain ICD Codes: R10.9 - Unspecified abdominal pain SNOMED: 63611571 Qualifiers: Qualified Codes: R10.84 - Generalized abdominal pain Status: stable Status Narrative Discussed with Dr. Jaimes. Assessment/Plan Abdominal pelvic CT reviewed, acute pancreatitis with the presence of cholelithiasis. No biliary ductal dilation noted. abdominal US reviewed, chronic pancreatitis U tox unremarkable Diarrhea okay for DC per GI standpoint would avoid Victoza given pancreatitis Acute management for pancreatitis pain management Zofran as needed soft diet PPI electrolyte correction follow labs The patient was seen and examined at bedside and all new and available data was reviewed in the patients chart. I agree with the above findings, impression and plan. (Patient seen earlier today. Signature stamp does not reflect patient encounter time.). - Monty Jaimes MD Subjective Subjective Patient unable to tolerate solid food, had complaint of abdominal pain after p.o. intake Objective Last 24 Hour Vital Signs Date Time Temp Pulse Resp B/P (MAP) Pulse Ox O2 Delivery O2 Flow Rate FiO2 10/04/18 09:01 73 119/82 10/04/18 08:00 98.4 73 18 119/82 (94) 98 10/04/18 04:00 97.7 71 18 132/76 (94) 97 10/03/18 23:50 97.9 76 20 149/101 (117) 98 10/03/18 21:00 Room Air 10/03/18 20:00 98.1 87 20 142/95 (111) 98 10/03/18 18:35 98.0 10/03/18 16:00 98.0 83 19 148/106 (120) 98 10/03/18 12:00 97.8 74 20 126/93 (104) 96 10/03/18 11:21 98 145/107 Intake and Output 10/03/18 10/04/18 18:59 06:59 Intake Total 1825 ml 1230 ml Balance 1825 ml 1230 ml Intake Oral 480 ml IV Total 925 ml 750 ml Other 900 ml # Voids 3 Height (Feet): 5 Height (Inches): 2.00 Weight (Pounds): 211 Carmen Ward NP Oct 04, 2018 10:14
[2018-10-04 12:00] VITALS: BP 128/75
--- NOTE | 2018-10-04 12:47 | Pulmonology Progress Note ---
Assessment/Plan Problems: (1) Pancreatitis, acute (2) Diabetes mellitus out of control (3) Chronic calcific pancreatitis Assessment/Plan improving symptomatic treatment pain management GI evaluation appreciated amylase and lipase are negative sliding scale diabetic diet Subjective ROS Limited/Unobtainable: No Constitutional: Reports: no symptoms HEENT: Repors: no symptoms Allergies: Coded Allergies: No Known Allergies (Unverified , 08/04/18) Objective Last 24 Hour Vital Signs Date Time Temp Pulse Resp B/P (MAP) Pulse Ox O2 Delivery O2 Flow Rate FiO2 10/04/18 12:00 98.1 67 18 128/75 (92) 98 10/04/18 10:39 98.4 10/04/18 09:01 73 119/82 10/04/18 08:00 98.4 73 18 119/82 (94) 98 10/04/18 08:00 Room Air 10/04/18 04:00 97.7 71 18 132/76 (94) 97 10/03/18 23:50 97.9 76 20 149/101 (117) 98 10/03/18 21:00 Room Air 10/03/18 20:00 98.1 87 20 142/95 (111) 98 10/03/18 16:00 98.0 83 19 148/106 (120) 98 Intake and Output 10/03/18 10/04/18 19:00 07:00 Intake Total 1750 ml 1230 ml Balance 1750 ml 1230 ml Intake Oral 480 ml IV Total 850 ml 750 ml Other 900 ml # Voids 3 Objective General Appearance: WD/WN HEENT: normocephalic, atraumatic Respiratory/Chest: chest wall non-tender, lungs clear Breasts: no masses Cardiovascular: normal rate Abdomen: soft, non tender, non distended, no scars Extremities: no cyanosis Skin: no rash Current Medications Medications (Trade) Dose Ordered Sig/Greta Route PRN Reason Start Time Stop Time Status Last Admin Dose Admin Acetaminophen (Tylenol) 650 mg Q4H PRN ORAL fever 09/30/18 10:30 10/30/18 10:29 Amlodipine Besylate (Norvasc) 5 mg DAILY ORAL 10/03/18 10:15 11/02/18 10:14 10/04/18 09:01 Dextrose (Dextrose 50%) 25 ml Q30M PRN IV Hypoglycemia 09/30/18 20:00 10/30/18 19:58 Dextrose (Dextrose 50%) 50 ml Q30M PRN IV hypoglycemia 09/30/18 20:00 10/30/18 19:59 Diphenhydramine HCl (Benadryl) 25 mg Q6H PRN ORAL Itching/Pruritis 09/30/18 10:30 10/30/18 10:29 Heparin Sodium (Porcine) (Heparin 5000 units/ml) 5,000 units EVERY 12 HOURS SUBQ 09/30/18 21:00 10/30/18 20:59 10/04/18 09:02 Insulin Aspart (NovoLOG) BEFORE MEALS AND HS SUBQ 09/30/18 21:00 10/30/18 20:59 10/04/18 11:33 Morphine Sulfate (Morphine Sulfate) 4 mg Q4H PRN IVP Severe Pain (Pain Scale 7-10) 09/30/18 20:00 10/07/18 19:59 10/04/18 10:09 Nitroglycerin (Ntg) 0.4 mg Q5M X 3 DOSES PRN SL Prn Chest Pain 09/30/18 10:30 10/30/18 10:29 Ondansetron HCl (Zofran) 4 mg Q6H PRN IVP Nausea & Vomiting 09/30/18 10:30 10/30/18 10:29 Polyethylene Glycol (Miralax) 17 gm HSPRN PRN ORAL Constipation 09/30/18 10:30 10/30/18 10:29 Sodium Chloride 1,000 ml @ 75 mls/hr [id number] IV 09/30/18 11:01 10/30/18 11:00 10/03/18 18:12 Temazepam (Restoril) 15 mg HSPRN PRN ORAL Insomnia 09/30/18 10:30 10/07/18 10:29 Lavelle Diggs MD Oct 04, 2018 12:47
--- NOTE | 2018-10-04 13:04 | NUR ---
*-* INSURANCE *-* UPDATED CLINICALS HAVE BEEN FAXED TO: [employer]/ [place]: MIGUEL P- [id number] [phone].. (FOR TODAY) F- [phone]...REVIEW/CLINICAL
--- NOTE | 2018-10-04 13:12 | NUR ---
NURSE NOTES: Pt descharge to home with stable condition. Discharge instruction given, patient verbalize understanding. VSS. denies pain. IV removed, belongings given to the pt.
--- NOTE | 2018-10-05 10:27 | Discharge Summary ---
Discharge Summary Discharge Summary _ DATE OF ADMISSION: 09/30/2018 DATE OF DISCHARGE: 10/04/2018 DISCHARGED BY: Dr. Mcintyre REASON FOR ADMISSION: 43 years old female with past medical history of diabetes mellitus, hypertension , ETOH induced pancreatitis, presented to the emergency room with abdominal pain nausea,, vomiting and diarrhea for the last 4 days. Pain reported as 8 out of 10, diffused, without radiation. She denied fever and chills. Patient reported not drinking for the last 5 to 10 years. Upon evaluation patient was tachycardic and blood pressure was elevated 181/114. Laboratory work-up revealed no leukocytosis, stable hemoglobin and hematocrit. Sodium 130, chloride 95. Glucose 460. Albumin 3.2. Urinalysis revealed +1 protein, +4 glucose, +4 blood. No evidence of UTI. Urine test was negative. Urine toxicology screen was positive for opiates. CT of the abdomen and pelvis revealed acute on chronic pancreatitis. No phlegmon, abscess or pseudocyst was identified. Probable gallstones. No evidence of biliary ductal dilatation. Hepatomegaly. Patient was vomited in the emergency department. Antiemetic provided along with analgesia. Patient started on IV hydration and admitted for further management. CONSULTANTS: pulmonary Dr. Diggs ID specialist Dr. Coley GI specialist Dr. Jaimes [facility]SE: Patient admitted to medical surgical floor. Patient initially was kept n.p.o. and was on IV hydration. GI specialist seen and evaluated patient. Abdominal ultrasound demonstrated hepatomegaly, no definite gallstones and chronic pancreatitis. Lipase remains within normal limits. LFT stable. GI specialist recommended to avoid Victoza , which patient was on , given chronic pancreatitis. Patient slowly started on diet and was advanced to full diet as tolerated. Antiemetic were reviewed as needed. GI prophylaxis with PPI provided. Diarrhea stopped before stool was collected for C. difficile. Pain management was addressed. Antiemetic provided as needed. Patient was able to tolerate diet. Renal parameters and electrolytes were closely monitored, electrolytes corrected as needed , and nephrotoxins were avoided. ID specialist followed. Patient remained afebrile. No leukocytosis. No evidence of abscess of phlegmon on the CT of the abdomen. ID specialist recommended to monitor patient closely and off antibiotics. Blood pressure was managed with calcium channel tena. Blood pressure stabilized. DVT prophylaxis provided. Blood sugar was managed with sliding scale of insulin and improved. Avoid Victoza as outpatient , as per GI recommendation, given chronic pancreatitis. Pain management was addressed and pain eventually resolved. Patient was stable for discharge home. Outpatient follow-up with primary care provider to improve glycemic control. Patient was counseled to continue abstinence from alcohol. FINAL DIAGNOSES: Acute pancreatitis Chronic calcific pancreatitis Diabetes mellitus [id number] Diarrhea-resolved Hypertension DISCHARGE MEDICATIONS: See Medication Reconciliation list. DISCHARGE INSTRUCTIONS: Patient was discharged home. Follow up with primary care provider in one week. I have been assigned to dictate discharge summary for this account. I was not involved in the patient's management. Shilpa Levi NP Oct 05, 2018 10:27
--- NOTE | 2018-10-05 12:45 | NUR ---
*-* INSURANCE *-* DISCHARGE SUMMARY HAS BEEN FAXED TO: [employer]/ [place]: MIGUEL P- [phone].. (FOR TODAY) F- [phone]...REVIEW/CLINICAL
--- NOTE | 2018-10-06 14:36 | NUR ---
*-* INSURANCE *-* CLINICALS FOR 10/02 WERE FAXED PER REQUEST OF [employer]/ [place]: MIGUEL P- [phone].. (FOR TODAY) F- [phone]...REVIEW/CLINICAL
== END 2018-10-04 13:10 | disposition home or self-care (01) | DRG 282 ==
LOC: EMR 01:44 → EDBEDREQ 04:30 → 4E 05:17 → EDBEDREQ 06:33 → 4E 10:00
DX: K85.90 Acute pancreatitis without necrosis or infection, unspecified (principal); E11.65 Type 2 diabetes mellitus with hyperglycemia; K80.20 Calculus of gallbladder without cholecystitis without obstruction; I10 Essential (primary) hypertension; Z79.4 Long term (current) use of insulin; K86.1 Other chronic pancreatitis; R19.7 Diarrhea, unspecified; F10.21 Alcohol dependence, in remission; K43.9 Ventral hernia without obstruction or gangrene
CPT/HCPCS: 36415; 74176; 76700; 80053; 80307; 81003; 81025; 82150; 82962; 83690; 83735; 84100; 85025; 85651; 85730; 86140; 87045; 96361; 96374; 96375; 99285; J1815; J2405

== ENCOUNTER 2018-12-29 07:55 | Inpatient (IN) | payer OTHER ==
[~2018-12-29] VITALS: Ht 157.5 cm; Wt 94.1 kg
[2018-12-29] VITALS (15 sets, daily range): BP systolic 115–163; BP diastolic 67–135
[~2018-12-29 07:55] MED LIST changes: +EMPAGLIFLOZIN PO; +GABAPENTIN100 MG ORAL; +NIZORAL 2% C1 APPLIC TOPIC; +VIBRAMYCIN100 MG ORAL; +VICTOZA 2-0.6 MG/0.1 SUBQ
[2018-12-29] MEDS ORDERED: Isovue-300 100ml vial INJ PRN (08:15)
[2018-12-29] MEDS ORDERED: D5NS 1,000 ML IV ONE (08:15)
--- NOTE | 2018-12-29 08:20 | NUR ---
ED Nurse Note: pt walked in due to abdominal pain accompanied by vomiting x 3 days, pt stated the pain is coming from her hernia, pt has history of hernia and htn and dm and was compliant with medication. pt bs 348 upon ed arrival, ermd made aware. pt able to give urine same and was sent to lab. iv stablish on the right forearm using g 20 iv catheter, blood drawn and was sent to lab. pt vss. not in distress. will continue to monitor.
--- NOTE | 2018-12-29 08:24 | Emergency Room Report ---
History of Present Illness General Chief Complaint: Abdominal Pain Source: Patient Present Illness HPI 43-year-old female history of mesh repair x3 at [facility] , presents with abdominal pain x3 days aching nature no aggravating relieving factors constant, with nausea vomiting, diarrhea, no fever, she does endorse chills, severity is moderate and constant, location is diffuse. Patient presents for evaluation Allergies: Coded Allergies: No Known Allergies (Unverified , 08/04/18) Patient History Past Medical History: see triage record Last Menstrual Period: 12/22/2018 Reviewed Nursing Documentation: PMH: Agreed; PSxH: Agreed Nursing Documentation-PM Past Medical History: No History, Except For Hx Cardiac Problems: No Hx Hypertension: Yes Hx Pacemaker: No Hx Asthma: No Hx COPD: No Hx Diabetes: Yes - Type II Hx Cancer: No Hx Gastrointestinal Problems: Yes - Hernia repair 2019 Hx Dialysis: No History Of Psychiatric Problem: No Hx Neurological Problems: No Hx Cerebrovascular Accident: No Hx Seizures: No Review of Systems All Other Systems: negative except mentioned in HPI Physical Exam Vital Signs Date Time Temp Pulse Resp B/P (MAP) Pulse Ox O2 Delivery O2 Flow Rate FiO2 12/29/18 08:00 98.6 119 20 177/120 (139) 98 Room Air Sp02 EP Interpretation: reviewed, normal General Appearance: well appearing, no apparent distress, alert Head: normocephalic, atraumatic Eyes: bilateral eye PERRL, bilateral eye EOMI ENT: uvula midline, dry mucus membranes Neck: supple, thyroid normal, supple/symm/no masses Respiratory: lungs clear, no respiratory distress, no retraction, no accessory muscle use Cardiovascular #1: normal peripheral pulses, no edema, no gallop, no murmur, tachycardia Gastrointestinal: soft, no guarding, no rebound, tenderness - Diffusely Musculoskeletal: normal inspection Neurologic: alert, oriented x3 Psychiatric: mood/affect normal Skin: no rash, warm/dry Procedures Critical Care Time Critical Care Time Given the critical condition in which the patient arrived, the patient was immediately assessed by myself and the nurse, and cardiac monitoring initiated due to the potential for rapid decompensation of the patient's clinical condition. During the course of the patient's stay, I spent a considerable amount of time at the bedside performing serial re-evaluations of the patient's hemodynamic and clinical status because of the recognized potential threat to life or limb in this condition. I then had a chance to review not only all of the available current laboratory and radiographic studies obtained today, but I also reviewed old records available to me at the time. Additionally, any ancillary information available including rehabilitation therapy aide records were reviewed. Sequential vital signs were obtained. Critical Care time of 39 minutes was performed exclusive of billable procedures Medical Decision Making Diagnostic Impression: Primary Impression: Abdominal pain Qualified Codes: R10.84 - Generalized abdominal pain Additional Impressions: DKA (diabetic ketoacidoses) Qualified Codes: E11.10 - Type 2 diabetes mellitus with ketoacidosis without coma Pancreatitis Qualified Codes: K86.1 - Other chronic pancreatitis Dehydration ER Course 43-year-old female presents with abdominal pain concerning for pancreatitis versus DKA versus ACS reevaluation 8:40AM HR slowly improving s/p resuscitation HR now 100 Patient found to have pancreatitis, and DKA, insulin drip started, Patient rehydrated with 3 L We will admit patient to ICU for insulin drip Patient admitted to Dr. Mcintyre Laboratory Tests Test 12/29/18 08:10 12/29/18 08:31 White Blood Count 11.1 K/UL (4.8-10.8) H Red Blood Count 4.91 M/UL (4.20-5.40) Hemoglobin 15.6 G/DL (12.0-16.0) Hematocrit 48.5 % (37.0-47.0) H Mean Corpuscular Volume 99 FL (80-99) Mean Corpuscular Hemoglobin 31.8 PG (27.0-31.0) H Mean Corpuscular Hemoglobin Concent 32.2 G/DL (32.0-36.0) Red Cell Distribution Width 13.8 % (11.6-14.8) Platelet Count 290 K/UL (150-450) Mean Platelet Volume 6.6 FL (6.5-10.1) Neutrophils (%) (Auto) 76.0 % (45.0-75.0) H Lymphocytes (%) (Auto) 14.5 % (20.0-45.0) L Monocytes (%) (Auto) 7.9 % (1.0-10.0) Eosinophils (%) (Auto) 0.6 % (0.0-3.0) Basophils (%) (Auto) 1.1 % (0.0-2.0) Prothrombin Time 10.3 SEC (9.30-11.50) Prothrombin Time INR 1.0 (0.9-1.1) PTT 40 SEC (23-33) H Urine Color Pale yellow Urine Appearance Slightly cloudy Urine pH 5 (4.5-8.0) Urine Specific [place] 1.025 (1.005-1.035) Urine Protein 3+ (NEGATIVE) H Urine Glucose (UA) 4+ (NEGATIVE) H Urine Ketones 4+ (NEGATIVE) H Urine Blood 3+ (NEGATIVE) H Urine Nitrite Negative (NEGATIVE) Urine Bilirubin Negative (NEGATIVE) Urine Urobilinogen Normal MG/DL (0.0-1.0) Urine Leukocyte Esterase Negative (NEGATIVE) Urine RBC 5-10 /HPF (0 - 2) H Urine WBC 0-2 /HPF (0 - 2) Urine Squamous Epithelial Cells Many /LPF (NONE/OCC) H Urine Bacteria Few /HPF (NONE) Urine Granular Casts 2-4 /LPF (NONE) H Urine Fine Granular Casts 5-10 /LPF (NONE) H Urine Yeast Few /HPF (NONE) H Urine HCG, Qualitative Negative (NEGATIVE) Sodium Level 129 MMOL/L (136-145) L Potassium Level 5.1 MMOL/L (3.5-5.1) Chloride Level 93 MMOL/L (98-107) L Carbon Dioxide Level 12 MMOL/L (21-32) L Anion Gap 24 mmol/L (5-15) H Blood Urea Nitrogen 10 mg/dL (7-18) Creatinine 1.3 MG/DL (0.55-1.30) Estimate Glomerular Filtration Rate 54.7 mL/min (>60) Glucose Level 442 MG/DL (74-106) H Calcium Level 10.6 MG/DL (8.5-10.1) H Magnesium Level 1.8 MG/DL (1.8-2.4) Total Bilirubin 0.7 MG/DL (0.2-1.0) Aspartate Amino Transferase (AST) 56 U/L (15-37) H Alanine Aminotransferase (ALT) 73 U/L (12-78) Alkaline Phosphatase 195 U/L (46-116) H Total Protein 9.5 G/DL (6.4-8.2) H Albumin 4.2 G/DL (3.4-5.0) Globulin 5.3 g/dL Albumin/Globulin Ratio 0.8 (1.0-2.7) L Lipase 532 U/L (73-393) H Human Chorionic Gonadotropin, Quant 1 mIU/mL (1-6) Acetone Level Positive-moderate (NEGATIVE) Venous Blood pH 7.210 Venous Blood Partial Pressure CO2 16.8 Venous Blood Partial Pressure O2 69.5 Venous Blood HCO3 6.6 Venous Blood Total Carbon Dioxide Pending Venous Bld O2 Saturation (Measured) Pending Venous Blood Oxygen Saturation 90.3 Venous Blood Base Excess -19.2 Methemoglobin 0.9 Sodium (Blood Gas) Pending EKG Diagnostic Results EKG Time: 08:16 EP Interpretation: Sinus tachycardia, rate 125, QTc 444, no acute ST elevations , left axis dev Rhythm Strip Diag. Results Rhythm Strip Time: 08:23 EP Interpretation: yes Rate: 114 Rhythm: no PVC's, no ectopy, other - Sinus tachycardia Chest X-Ray Diagnostic Results Chest X-Ray Diagnostic Results : Chest X-Ray Ordered: Yes # of Views/Limited/Complete: 1 View Indication: Other - Nausea vomiting EP Interpretation: Yes Interpretation: no consolidation, no effusion, no pneumothorax, no acute cardiopulmonary disease Impression: No acute disease Electronically Signed by: Piotr Robertson MD CT/MRI/US Diagnostic Results CT/MRI/US Diagnostic Results : Impression Procedure: CT Abdomen Pelvis w/Contrast Clinical Indication: Abdominal pain, status post hernia repair Technique: No oral contrast utilized, per emergency room physician request IV administration nonionic contrast. Venous phase spiral acquisition obtained through the abdomen and pelvis. Multiplanar reconstructions were generated. Total dose length product 913.41 mGycm. CTDIvol(s) 18.6 mGy. Dose reduction achieved using automated exposure control Comparison: 07/15/2018 Findings: Lack of enteric contrast limits assessment of the GI tract. There is a small fat-containing hernia which was not evident previously. Previously previously demonstrated incisional edema and fluid are no longer evident. Previously demonstrated skin lars have been removed. No abnormal fluid collections are demonstrated. The appendix is not definitely identified, but no findings to suggest acute appendicitis are evident. No small bowel distention. No evidence of diverticulosis or diverticulitis. No free or loculated intraperitoneal gas or fluid is evident. Distal esophagus, stomach are unremarkable. There is suggestion of some wall thickening of the duodenum which is not evident previously. There is generalized enlargement of the pancreas, particularly the pancreatic head, and slight indistinctness of the peripancreatic fat. This is not evident previously. There is fairly extensive pancreatic calcification, consistent with chronic calcifying pancreatitis. The liver is diffusely hypoattenuating, consistent with fatty change. No focal abnormalities. The liver is also enlarged. The gallbladder, bile ducts are unremarkable. The spleen demonstrates a subcentimeter low-attenuation lesion which was also evident previously. The adrenals are unremarkable. The kidneys are unremarkable. No retroperitoneal or mesenteric mass or adenopathy. No pelvic mass or adenopathy. Previously demonstrated ovarian cysts are no longer evident. There is evidence of prior periuterine surgery. The bladder is unremarkable. The included lung bases are clear. The bones are unremarkable. Impression: Enlargement of the pancreas and slight indistinctness of the peripancreatic fat, appearance suggestive of early nonnecrotizing acute pancreatitis Mild wall thickening of the duodenum. Suspect reactive secondary to the above Evidence of chronic calcifying pancreatitis Limited assessment of the GI tract, due to lack of enteric contrast administration Interim resolution of previously demonstrated acute postoperative incisional changes New small fat-containing broad-based ventral hernia Fatty liver. Hepatomegaly Interim resolution of previously demonstrated bilateral ovarian cysts Other findings as noted, including postsurgical changes of the periuterine soft tissues, stable subcentimeter low-attenuation splenic lesion The CT scanner at [facility] is accredited by the [employer] and the scans are performed using protocols designed to limit radiation exposure to as low as reasonably achievable to attain images of sufficient resolution adequate for diagnostic evaluation. Dictated By: Wilian Chinchilla MD Electronically Signed By: Wilian Chinchilla MD Signed Date/Time 12/29/18 0942 CC: Piotr Robertson MD Last Vital Signs Date Time Temp Pulse Resp B/P (MAP) Pulse Ox O2 Delivery O2 Flow Rate FiO2 12/29/18 08:00 98.6 119 20 177/120 (139) 98 Room Air Disposition: ADMITTED INPATIENT Condition: Serious Piotr Robertson MD Dec 29, 2018 08:24
[2018-12-29] MEDS ORDERED: Morphine Sulfate 4mg/ml Inj (IV USE ONLY) IVP ONE (08:30)
--- NOTE | 2018-12-29 08:30 | NUR ---
ED Nurse Note: pt medicated as ordered, pt stated the pain went away after the morphine. will continue to monitor.
[2018-12-29 08:36] LABS: BASOPHILS % (AUTO) 1.1 % (0.0-2.0); EOSINOPHILS % (AUTO) 0.6 % (0.0-3.0); HEMATOCRIT 48.5 % (37.0-47.0); HEMOGLOBIN 15.6 G/DL (12.0-16.0); LYMPHOCYTES % (AUTO) 14.5 % (20.0-45.0); MEAN CORPUSCULAR VOLUME 99 FL (80-99); MONOCYTES % (AUTO) 7.9 % (1.0-10.0); PLATELET COUNT 290 K/UL (150-450); RED BLOOD COUNT 4.91 M/UL (4.20-5.40); RED CELL DISTRIBUTION WIDTH 13.8 % (11.6-14.8); WHITE BLOOD COUNT 11.1 K/UL (4.8-10.8)
[2018-12-29 08:37] LABS: APPEARANCE,URINE SLIGHTLY CLOUDY; BILIRUBIN, URINE NEGATIVE (NEGATIVE); COLOR,URINE PALE YELLOW; GLUCOSE, URINE (UA) 4+ (NEGATIVE); KETONES,URINE 4+ (NEGATIVE); LEUKOCYTE ESTERASE ,URINE NEGATIVE (NEGATIVE); NITRITE,URINE NEGATIVE (NEGATIVE); PH,URINE 5 (4.5-8.0); PROTEIN,URINE 3+ (NEGATIVE); UROBILINOGEN,URINE NORMAL MG/DL (0.0-1.0)
[2018-12-29 08:43] LABS: ANION GAP 24 mmol/L (5-15); BLOOD UREA NITROGEN 10 mg/dL (7-18); CALCIUM 10.6 MG/DL (8.5-10.1); CARBON DIOXIDE 12 MMOL/L (21-32); CHLORIDE 93 MMOL/L (98-107); CREATININE 1.3 MG/DL (0.55-1.30); POTASSIUM 5.1 MMOL/L (3.5-5.1); SODIUM 129 MMOL/L (136-145)
--- NOTE | 2018-12-29 08:45 | NUR ---
ED Nurse Note: xray at bedside
[2018-12-29 08:48] LABS: ALANINE AMINOTRANSFERASE 73 U/L (12-78); ALBUMIN 4.2 G/DL (3.4-5.0); ALBUMIN/GLOBULIN RATIO 0.8 (1.0-2.7); ALKALINE PHOSPHATASE 195 U/L (46-116); ASPARTATE AMINO TRANSFERASE 56 U/L (15-37); BILIRUBIN,TOTAL 0.7 MG/DL (0.2-1.0)
[2018-12-29] MEDS ORDERED: Basaglar SUBQ (09:01)
[2018-12-29] MEDS ORDERED: jardiance ORAL (09:04)
[2018-12-29] MEDS ORDERED: BENZONATATE200 MG ORAL (09:04)
[2018-12-29] MEDS ORDERED: CEPHALEXIN500 M1 ORAL (09:04)
[2018-12-29] MEDS ORDERED: ADMELOG (09:04)
--- NOTE | 2018-12-29 09:08 | NUR ---
ED Nurse Note: pt went to ct with tech
--- NOTE | 2018-12-29 09:20 | NUR ---
ED Nurse Note: pt went back from ct with tech
--- NOTE | 2018-12-29 09:45 | NUR ---
ED Nurse Note: zohreh ordered insulin drip, zohreh made aware that the computation of 10.54 exceeds the ordered and alondrad changed the order to 10ml/hour, called pharmacy and able to talk to yolanda and provided with label.
--- NOTE | 2018-12-29 09:47 | Diagnostic Imaging Report ---
Clinical Indication: Abdominal pain, status post hernia repair Technique: No oral contrast utilized, per emergency room physician request IV administration nonionic contrast. Venous phase spiral acquisition obtained through the abdomen and pelvis. Multiplanar reconstructions were generated. Total dose length product 913.41 mGycm. CTDIvol(s) 18.6 mGy. Dose reduction achieved using automated exposure control Comparison: 07/15/2018 Findings: Lack of enteric contrast limits assessment of the GI tract. There is a small fat-containing hernia which was not evident previously. Previously previously demonstrated incisional edema and fluid are no longer evident. Previously demonstrated skin lars have been removed. No abnormal fluid collections are demonstrated. The appendix is not definitely identified, but no findings to suggest acute appendicitis are evident. No small bowel distention. No evidence of diverticulosis or diverticulitis. No free or loculated intraperitoneal gas or fluid is evident. Distal esophagus, stomach are unremarkable. There is suggestion of some wall thickening of the duodenum which is not evident previously. There is generalized enlargement of the pancreas, particularly the pancreatic head, and slight indistinctness of the peripancreatic fat. This is not evident previously. There is fairly extensive pancreatic calcification, consistent with chronic calcifying pancreatitis. The liver is diffusely hypoattenuating, consistent with fatty change. No focal abnormalities. The liver is also enlarged. The gallbladder, bile ducts are unremarkable. The spleen demonstrates a subcentimeter low-attenuation lesion which was also evident previously. The adrenals are unremarkable. The kidneys are unremarkable. No retroperitoneal or mesenteric mass or adenopathy. No pelvic mass or adenopathy. Previously demonstrated ovarian cysts are no longer evident. There is evidence of prior periuterine surgery. The bladder is unremarkable. The included lung bases are clear. The bones are unremarkable. Impression: Enlargement of the pancreas and slight indistinctness of the peripancreatic fat, appearance suggestive of early nonnecrotizing acute pancreatitis Mild wall thickening of the duodenum. Suspect reactive secondary to the above Evidence of chronic calcifying pancreatitis Limited assessment of the GI tract, due to lack of enteric contrast administration Interim resolution of previously demonstrated acute postoperative incisional changes New small fat-containing broad-based ventral hernia Fatty liver. Hepatomegaly Interim resolution of previously demonstrated bilateral ovarian cysts Other findings as noted, including postsurgical changes of the periuterine soft tissues, stable subcentimeter low-attenuation splenic lesion The CT scanner at [facility] is accredited by the [employer] and the scans are performed using protocols designed to limit radiation exposure to as low as reasonably achievable to attain images of sufficient resolution adequate for diagnostic evaluation.
[2018-12-29] MEDS ORDERED: LR 1000ml 1,000 ML IV ONE (11:00)
--- NOTE | 2018-12-29 11:19 | Diagnostic Imaging Report ---
Indication: Cough Technique: One view of the chest Comparison: 06/18/2018 Findings: Lungs and pleural spaces are clear. Heart size is normal. No significant interim change Impression: No acute process
--- NOTE | 2018-12-29 11:24 | NUR ---
ED Nurse Note: PT is admitted to the hospital and report was given to Radha cagle.
--- NOTE | 2018-12-29 11:27 | NUR ---
ED Nurse Note: pt was transfered to icu room F with stable vs and all belongings endorsed to nir cagle
--- NOTE | 2018-12-29 12:00 | NUR ---
NURSE NOTES: Received new admission from ER, transferred via [facility]. Report was received from Mckenzie PERLA. security monitor was placed on pt, displays NSR with heart rate in the upper 90's. Temp 98.8F axillary. Pt is awake, alert, oriented x4, on room air with O2sat at 99%. Bilateral inspiratory/expiratory diminished yet clear lung sounds are noted on auscultation. Bounding radial and weak pedal pulses are noted on palpation. Peripheral IV access is present on left FA #20G and right hand #22G, saline lock and Insulin drip from ER at 10units/hr. Abdomen is large, round, distended, slightly hard and tender to touch with hypoactive bowel sounds heard on auscultation. Pt is ambulatory, and able to void on her own. Bedside commode is set up. Skin is intact, healed/old surgical scar is noted midline on abdomen. Bed is locked with two side rails up, at semi-hunter's, in lowest position and call light within easy reach. Will continue to monitor pt and contact MD for new-admission orders. Addendum: 12/29/18 at 1931 by SWATI HIDALGO RN Also two tiny blisters/cyst noted on buttocks.
[2018-12-29] MEDS ORDERED: Miralax 17gm pkt ORAL PRN (12:15)
[2018-12-29] MEDS ORDERED: Albuterol/Ipratropium 3ml neb HHN PRN (12:15)
[2018-12-29] MEDS ORDERED: Nitroglycerin Subl 0.4mg tab SL PRN (12:15)
[2018-12-29] MEDS ORDERED: Insulin Human Regular 100units/ml 3ml IV PRN ×2 (12:30)
--- NOTE | 2018-12-29 12:40 | History & Physical ---
History and Physical History & Physicial Dictated for Int Med-Dr Mcintyre no. [id number]. ICU Marshal Gilbert MD Dec 29, 2018 12:40
[2018-12-29] MEDS: Morphine Sulfate 4mg/ml Inj (IV USE ONLY) IVP PRN ×3 (13:02→21:07)
[2018-12-29] MEDS: Pantoprazole Inj IVP SCH (13:03)
--- NOTE | 2018-12-29 13:10 | NUR ---
NURSE NOTES: Pt is placed on insulin drip Algorithm [address] Diggs's order. Blood glucose/accucheck resulted in 156 and pt is placed on 4 units/hr per Algorithm order. Pt currently remains NPO. IV fluid NS is infusing at 150ml/hr. Pt reports severe abdominal pain / and was administered Morphine 4mg IVP per PRN order.
--- NOTE | 2018-12-29 13:47 | GI Initial Consult Note ---
History of Present Illness General Date patient seen: Dec 29, 2018 Time patient seen: 13:40 Reason for Hospitalization: Abdominal Pain Referring physician: LEANNA FELDMAN Reason for Consultation: ABDOMINAL PAIN Present Illness HPI 43-year-old female history of mesh repair x3 at [facility] , presents with abdominal pain x3 days aching nature no aggravating relieving factors constant, with nausea vomiting, diarrhea, no fever, she does endorse chills, severity is moderate and constant, location is diffuse. Patient presents for evaluation GI consulted for abdominal pain. Pt seen, awake A&Ox 4 NAD with no active s/sx of N/V/D. Denied any diarrhea or constipation. CT AP noted enlargement of the pancreas and slight indistinctness of the peripancreatic fat, appearance suggestive of early nonnecrotizing acute pancreatitis. Mild wall thickening of the duodenum. Multiple history of abdominal hernia repair, last one noted May 2018. No history of endoscopy. Home Meds Active Scripts Triamcinolone (Triamcinolone Acetonide) 5 Gm Paste..g., 1 EA APPLIC EVERY 12 HOURS for 7 Days, TUBE Prov:Lavelle Diggs MD 08/10/18 Metformin Hcl* (GLUCOPHAGE*) 500 Mg Tablet, 1000 MG ORAL BID for 30 Days, TAB Prov:Lavelle Diggs MD 08/10/18 Nystatin* (NYSTATIN*) 15 Gm Cream..g., 1 APPLIC TOPIC THREE TIMES A DAY, #15 GM 2 Refills Prov:Stacie Ortiz 08/04/18 Reported Medications Cephalexin* (CEPHALEXIN*) 500 Mg Tablet, 500 MG ORAL EVERY 6 HOURS, CAP 12/29/18 Benzonatate* (BENZONATATE*) 200 Mg Capsule, 100 MG ORAL THREE TIMES A DAY PRN for For Cough, PERLE 12/29/18 [Admelog] No Conflict Check 12/29/18 [Basaglar] No Conflict Check, 20 UNITS SUBQ BID 12/29/18 Ketoconazole (Ketoconazole) 15 Gm Cream..g., 1 APPLIC TOPIC DAILYPRN, APPLIC 10/01/18 [Empagliflozin] No Conflict Check, 10 MG PO DAILY 10/01/18 Liraglutide (VICTOZA 2-CHAZ) 0.6 Mg/0.1 Ml Pen.injctr, 0.6 MG SUBQ DAILY, EA 10/01/18 Fluconazole (FLUCONAZOLE) 100 Mg Tablet, 100 MG ORAL BID, TAB 10/01/18 Doxycycline Hyclate* (VIBRAMYCIN*) 100 Mg Capsule, 100 MG ORAL DAILY, CAP 10/01/18 Gabapentin* (GABAPENTIN*) 100 Mg Capsule, 300 MG ORAL BID, CAP 10/01/18 Amlodipine Besylate* (AMLODIPINE BESYLATE*) 5 Mg Tablet, 5 MG ORAL DAILY, TAB 06/18/18 [Admelog] No Conflict Check, SUBQ Sliding Scale 12/18/17 Med list reviewed/reconciled: Yes Allergies: Coded Allergies: No Known Allergies (Unverified , 08/04/18) Patient History History Provided By: Patient, Medical Record PMH Narrative Past Medical History: see triage record Last Menstrual Period: 12/22/2018 Reviewed Nursing Documentation: PMH: Agreed; PSxH: Agreed Nursing Documentation-PM Past Medical History: No History, Except For Hx Cardiac Problems: No Hx Hypertension: Yes Hx Pacemaker: No Hx Asthma: No Hx COPD: No Hx Diabetes: Yes - Type II Hx Cancer: No Hx Gastrointestinal Problems: Yes - Hernia repair 2018 Hx Dialysis: No History Of Psychiatric Problem: No Hx Neurological Problems: No Hx Cerebrovascular Accident: No Hx Seizures: No Social History: Denies: smoking, alcohol use, drug use, other Review of Systems All Other Systems: negative except mentioned in HPI Physical Exam Vital Signs Date Time Temp Pulse Resp B/P (MAP) Pulse Ox O2 Delivery O2 Flow Rate FiO2 12/29/18 08:00 98.6 119 20 177/120 (139) 98 Room Air Sp02 EP Interpretation: reviewed, normal Labs Laboratory Tests Test 12/29/18 08:10 12/29/18 08:31 White Blood Count 11.1 K/UL (4.8-10.8) H Red Blood Count 4.91 M/UL (4.20-5.40) Hemoglobin 15.6 G/DL (12.0-16.0) Hematocrit 48.5 % (37.0-47.0) H Mean Corpuscular Volume 99 FL (80-99) Mean Corpuscular Hemoglobin 31.8 PG (27.0-31.0) H Mean Corpuscular Hemoglobin Concent 32.2 G/DL (32.0-36.0) Red Cell Distribution Width 13.8 % (11.6-14.8) Platelet Count 290 K/UL (150-450) Mean Platelet Volume 6.6 FL (6.5-10.1) Neutrophils (%) (Auto) 76.0 % (45.0-75.0) H Lymphocytes (%) (Auto) 14.5 % (20.0-45.0) L Monocytes (%) (Auto) 7.9 % (1.0-10.0) Eosinophils (%) (Auto) 0.6 % (0.0-3.0) Basophils (%) (Auto) 1.1 % (0.0-2.0) Prothrombin Time 10.3 SEC (9.30-11.50) Prothromb Time International Ratio 1.0 (0.9-1.1) Activated Partial Thromboplast Time 40 SEC (23-33) H Urine Color Pale yellow Urine Appearance Slightly cloudy Urine pH 5 (4.5-8.0) Urine Specific [place] 1.025 (1.005-1.035) Urine Protein 3+ (NEGATIVE) H Urine Glucose (UA) 4+ (NEGATIVE) H Urine Ketones 4+ (NEGATIVE) H Urine Blood 3+ (NEGATIVE) H Urine Nitrite Negative (NEGATIVE) Urine Bilirubin Negative (NEGATIVE) Urine Urobilinogen Normal MG/DL (0.0-1.0) Urine Leukocyte Esterase Negative (NEGATIVE) Urine RBC 5-10 /HPF (0 - 2) H Urine WBC 0-2 /HPF (0 - 2) Urine Squamous Epithelial Cells Many /LPF (NONE/OCC) H Urine Bacteria Few /HPF (NONE) Urine Granular Casts 2-4 /LPF (NONE) H Urine Fine Granular Casts 5-10 /LPF (NONE) H Urine Yeast Few /HPF (NONE) H Urine HCG, Qualitative Negative (NEGATIVE) Sodium Level 129 MMOL/L (136-145) L Potassium Level 5.1 MMOL/L (3.5-5.1) Chloride Level 93 MMOL/L (98-107) L Carbon Dioxide Level 12 MMOL/L (21-32) L Anion Gap 24 mmol/L (5-15) H Blood Urea Nitrogen 10 mg/dL (7-18) Creatinine 1.3 MG/DL (0.55-1.30) Estimat Glomerular Filtration Rate 54.7 mL/min (>60) Glucose Level 442 MG/DL (74-106) H Calcium Level 10.6 MG/DL (8.5-10.1) H Magnesium Level 1.8 MG/DL (1.8-2.4) Total Bilirubin 0.7 MG/DL (0.2-1.0) Aspartate Amino Transf (AST/SGOT) 56 U/L (15-37) H Alanine Aminotransferase (ALT/SGPT) 73 U/L (12-78) Alkaline Phosphatase 195 U/L (46-116) H Total Protein 9.5 G/DL (6.4-8.2) H Albumin 4.2 G/DL (3.4-5.0) Globulin 5.3 g/dL Albumin/Globulin Ratio 0.8 (1.0-2.7) L Lipase 532 U/L (73-393) H Human Chorionic Gonadotropin, Quant 1 mIU/mL (1-6) Acetone Level Positive-moderate (NEGATIVE) Venous Blood pH 7.210 Venous Blood Partial Pressure CO2 16.8 Venous Blood Partial Pressure O2 69.5 Venous Blood HCO3 6.6 Venous Blood Total Carbon Dioxide Pending Venous Bld O2 Saturation (Measured) Pending Venous Blood Oxygen Saturation 90.3 Venous Blood Base Excess -19.2 Methemoglobin 0.9 Sodium (Blood Gas) Pending General Appearance: well appearing, no apparent distress, alert, obese Head: normocephalic EENT: PERRL/EOMI, normal ENT inspection Neck: supple Respiratory: normal breath sounds, no respiratory distress Cardiovascular: normal rate Gastrointestinal: normal inspection, non tender, soft, normal bowel sounds, non -distended Rectal: deferred Genitourinary: no CVA tenderness Musculoskeletal: normal inspection, back normal Neurologic: normal inspection, alert, oriented x3, responsive Psychiatric: normal inspection, judgement/insight normal, memory normal Skin: normal inspection, normal color, no rash, warm/dry, palpation normal, well hydrated Lymphatic: normal inspection, no adenopathy Current Medications Current Medications Medications (Trade) Dose Ordered Sig/Greta Route PRN Reason Start Time Stop Time Status Last Admin Dose Admin Acetaminophen (Tylenol) 650 mg Q4H PRN ORAL Fever (temp>100.5F) 12/29/18 12:15 01/28/19 12:14 Albuterol/ Ipratropium (Albuterol/ Ipratropium) 3 ml Q4H PRN HHN Shortness of Breath 12/29/18 12:15 01/03/19 12:14 Clonidine HCl (Catapres Tab) 0.1 mg Q4H PRN ORAL SBP > 160mmHg 12/29/18 12:45 01/28/19 12:44 Dextrose (Dextrose 50%) 25 ml Q30M PRN IV HYPOGLYCEMIA 12/29/18 12:15 01/28/19 12:14 Dextrose (Dextrose 50%) 50 ml Q30M PRN IV Hypoglycemia 12/29/18 12:15 01/28/19 12:14 Heparin Sodium (Porcine) (Heparin 5000 units/ml) 5,000 units EVERY 12 HOURS SUBQ 12/29/18 21:00 01/28/19 20:59 Insulin Human Regular (NovoLIN R) 5 units PRN PRN IV BS 200-299 12/29/18 12:30 01/28/19 12:29 Insulin Human Regular (NovoLIN R) 10 units PRN PRN IV BS=>300 12/29/18 12:30 01/28/19 12:29 Insulin Human Regular 100 units/ Sodium Chloride 100 ml @ 0 mls/hr Q24H IV 12/29/18 12:30 01/28/19 12:29 12/29/18 13:12 Iopamidol (Isovue-300 100ml) 100 ml NOW PRN INJ Radiology Procedure 12/29/18 08:15 12/31/18 08:14 Lorazepam (Ativan 2mg/ml 1ml) 2 mg Q2H PRN IV agitation 12/29/18 12:15 01/05/19 12:14 Miscellaneous Medication (Insulin Rate Change) 1 ea PRN PRN MISC To Patient Comfort 12/29/18 12:30 01/28/19 12:29 Morphine Sulfate (Morphine Sulfate) 4 mg Q4H PRN IVP Severe Pain (Pain Scale 7-10) 12/29/18 12:15 01/05/19 12:14 12/29/18 13:02 Nitroglycerin (Ntg) 0.4 mg Q5M PRN SL Prn Chest Pain 12/29/18 12:15 01/28/19 12:14 Ondansetron HCl (Zofran) 4 mg Q6H PRN IVP Nausea & Vomiting 12/29/18 12:15 01/28/19 12:14 Pantoprazole (Protonix) 40 mg DAILY IVP 12/29/18 12:30 01/28/19 12:29 12/29/18 13:03 Polyethylene Glycol (Miralax) 17 gm DAILYPRN PRN ORAL Constipation 12/29/18 12:15 01/28/19 12:14 Sodium Chloride 1,000 ml @ 150 mls/hr Q6H40M IV 12/29/18 12:15 01/28/19 12:14 12/29/18 13:03 GI: Plan Problems: (1) Abdominal pain (2) Dehydration (3) Pancreatitis (4) Diarrhea (5) DKA (diabetic ketoacidoses) Plan AP Ct suggestive of early nonnecrotizing acute pancreatitis with mild wall thickening of the duodenum, suspect reactive secondary. maintain NPO + IVFs medical management for pancreatitis pain mgmt zofran prn obtain utox DM management electrolyte correction ppi follow labs Discussed with Dr. Jaimes. Thank you for this patient referral, we will follow. The patient was seen and examined at bedside and all new and available data was reviewed in the patients chart. I agree with the above findings, impression and plan. (Patient seen earlier today. Signature stamp does not reflect patient encounter time.). - MD Sylvia Wallace,[facility] [employer] PRESS OPERATOR Dec 29, 2018 13:47
--- NOTE | 2018-12-29 14:00 | NUR ---
NURSE NOTES: Insulin drip is titrated down to 3units/hr per Algorithm 3 protocol/order for blood glucose of 126. Pt is currently asleep. Urine specimen was collected and sent to lab for toxicology/drug screen.
--- NOTE | 2018-12-29 14:10 | Pulmonolgy Critical Care Note ---
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 - Objective Last 24 Hour Vital Signs Date Time Temp Pulse Resp B/P (MAP) Pulse Ox O2 Delivery O2 Flow Rate FiO2 12/29/18 13:32 98.0 12/29/18 11:27 98.0 94 14 143/101 100 Room Air 12/29/18 10:30 98.0 94 14 143/101 100 Room Air 12/29/18 09:10 98.6 90 12 163/97 100 Room Air 12/29/18 08:57 98.6 12/29/18 08:20 117 18 Room Air 12/29/18 08:20 98.6 117 20 155/135 98 Room Air 12/29/18 08:00 98.6 119 20 177/120 (139) 98 Room Air Status: awake, sedated Neck: full ROM Heart: HR/BP stable, regular Abdomen: non-tender Extremities: no C/C/E Micro: Microbiology Date/Time Source Procedure Growth Status 12/29/18 11:03 Rectum Received Accucheck: 156 Critical Care - Subjective ROS Limited/Unobtainable: Yes Labs: Laboratory Tests Test 12/29/18 08:10 12/29/18 08:31 White Blood Count 11.1 K/UL (4.8-10.8) H Red Blood Count 4.91 M/UL (4.20-5.40) Hemoglobin 15.6 G/DL (12.0-16.0) Hematocrit 48.5 % (37.0-47.0) H Mean Corpuscular Volume 99 FL (80-99) Mean Corpuscular Hemoglobin 31.8 PG (27.0-31.0) H Mean Corpuscular Hemoglobin Concent 32.2 G/DL (32.0-36.0) Red Cell Distribution Width 13.8 % (11.6-14.8) Platelet Count 290 K/UL (150-450) Mean Platelet Volume 6.6 FL (6.5-10.1) Neutrophils (%) (Auto) 76.0 % (45.0-75.0) H Lymphocytes (%) (Auto) 14.5 % (20.0-45.0) L Monocytes (%) (Auto) 7.9 % (1.0-10.0) Eosinophils (%) (Auto) 0.6 % (0.0-3.0) Basophils (%) (Auto) 1.1 % (0.0-2.0) Prothrombin Time 10.3 SEC (9.30-11.50) Prothromb Time International Ratio 1.0 (0.9-1.1) Activated Partial Thromboplast Time 40 SEC (23-33) H Urine Color Pale yellow Urine Appearance Slightly cloudy Urine pH 5 (4.5-8.0) Urine Specific [place] 1.025 (1.005-1.035) Urine Protein 3+ (NEGATIVE) H Urine Glucose (UA) 4+ (NEGATIVE) H Urine Ketones 4+ (NEGATIVE) H Urine Blood 3+ (NEGATIVE) H Urine Nitrite Negative (NEGATIVE) Urine Bilirubin Negative (NEGATIVE) Urine Urobilinogen Normal MG/DL (0.0-1.0) Urine Leukocyte Esterase Negative (NEGATIVE) Urine RBC 5-10 /HPF (0 - 2) H Urine WBC 0-2 /HPF (0 - 2) Urine Squamous Epithelial Cells Many /LPF (NONE/OCC) H Urine Bacteria Few /HPF (NONE) Urine Granular Casts 2-4 /LPF (NONE) H Urine Fine Granular Casts 5-10 /LPF (NONE) H Urine Yeast Few /HPF (NONE) H Urine HCG, Qualitative Negative (NEGATIVE) Sodium Level 129 MMOL/L (136-145) L Potassium Level 5.1 MMOL/L (3.5-5.1) Chloride Level 93 MMOL/L (98-107) L Carbon Dioxide Level 12 MMOL/L (21-32) L Anion Gap 24 mmol/L (5-15) H Blood Urea Nitrogen 10 mg/dL (7-18) Creatinine 1.3 MG/DL (0.55-1.30) Estimat Glomerular Filtration Rate 54.7 mL/min (>60) Glucose Level 442 MG/DL (74-106) H Calcium Level 10.6 MG/DL (8.5-10.1) H Magnesium Level 1.8 MG/DL (1.8-2.4) Total Bilirubin 0.7 MG/DL (0.2-1.0) Aspartate Amino Transf (AST/SGOT) 56 U/L (15-37) H Alanine Aminotransferase (ALT/SGPT) 73 U/L (12-78) Alkaline Phosphatase 195 U/L (46-116) H Total Protein 9.5 G/DL (6.4-8.2) H Albumin 4.2 G/DL (3.4-5.0) Globulin 5.3 g/dL Albumin/Globulin Ratio 0.8 (1.0-2.7) L Lipase 532 U/L (73-393) H Human Chorionic Gonadotropin, Quant 1 mIU/mL (1-6) Acetone Level Positive-moderate (NEGATIVE) Venous Blood pH 7.210 Venous Blood Partial Pressure CO2 16.8 Venous Blood Partial Pressure O2 69.5 Venous Blood HCO3 6.6 Venous Blood Total Carbon Dioxide Pending Venous Bld O2 Saturation (Measured) Pending Venous Blood Oxygen Saturation 90.3 Venous Blood Base Excess -19.2 Methemoglobin 0.9 Sodium (Blood Gas) Pending Lavelle Diggs MD Dec 29, 2018 14:10
--- NOTE | 2018-12-29 14:34 | Consultation ---
History of Present Illness General Date patient seen: Dec 29, 2018 Reason for Hospitalization: Abdominal Pain Present Illness HPI This is a very pleasant 43-year-old female with history of 3 prior abdominal ventral incisional hernia repairs with mesh over the past [address] Galicia over [facility]. Patient states that she identified abdominal pain and was unsure what it was in his pain worse and came the emergency room for evaluation. In emergency department patient identified to have acute pancreatitis. Patient admitted for care and management. Patient required ICU admission given above findings and laboratory data. CT abdomen pelvis was performed identified a recurrent incisional ventral hernia as well. Surgery called to evaluate and assist with care. Patient seen, patient [place], chart reviewed. States currently 6 out of 10 abdominal pain epigastric region. Currently no nausea or emesis. Passing flatus with bowel function. Feels abdominal distention. No radiation of pain Allergies: Coded Allergies: No Known Allergies (Unverified , 08/04/18) Medication History Scheduled Amlodipine Besylate* (Amlodipine Besylate*), 5 MG ORAL DAILY, (Reported) Cephalexin* (Cephalexin*), 500 MG ORAL EVERY 6 HOURS, (Reported) Doxycycline Hyclate* (Vibramycin*), 100 MG ORAL DAILY, (Reported) Fluconazole (Fluconazole), 100 MG ORAL BID, (Reported) Gabapentin* (Gabapentin*), 300 MG ORAL BID, (Reported) Ketoconazole (Ketoconazole), 1 APPLIC TOPIC DAILYPRN, (Reported) Liraglutide (Victoza 2-Rodrigo), 0.6 MG SUBQ DAILY, (Reported) Metformin Hcl* (Glucophage*), 1,000 MG ORAL BID Nystatin* (Nystatin*), 1 APPLIC TOPIC THREE TIMES A DAY Triamcinolone (Triamcinolone Acetonide), 1 EA APPLIC EVERY 12 HOURS [Basaglar], 20 UNITS SUBQ BID, (Reported) [Empagliflozin], 10 MG PO DAILY, (Reported) Scheduled PRN Benzonatate* (Benzonatate*), 100 MG ORAL THREE TIMES A DAY PRN for For Cough, ( Reported) Miscellaneous Medications [Admelog], SUBQ, (Reported) [Admelog], (Reported) Patient History History Provided By: Patient, Medical Record, PMD Healthcare decision maker Resuscitation status Advanced Directive on File Past Medical/Surgical History Past Medical/Surgical History: (1) Hyperglycemia (2) Cellulitis (3) Paronychia (4) Hypoglycemia (5) Cellulitis and abscess of hand (6) Diabetes mellitus out of control (7) Ventral hernia (8) History of diabetes mellitus (9) Chronic calcific pancreatitis (10) Pancreatitis (11) Dehydration (12) DKA (diabetic ketoacidoses) (13) Diarrhea (14) Abdominal pain Review of Systems Review of Symptoms General ROS: no weight loss or fever Psychological ROS: no depression or mood changes, no memory loss Ophthalmic ROS: no visual changes or eye irritation ENT ROS: no nasal congestion, hearing loss, dizziness Allergy and Immunology ROS: no allergic symptoms or urticaria Hematological and Lymphatic ROS: no swollen glands, unusual bleeding or bruising Endocrine ROS: no polyuria, polydipsia, weight changes, temperature intolerance Respiratory ROS: no cough, shortness of breath, or wheezing Cardiovascular ROS: no chest pain or dyspnea on exertion Gastrointestinal ROS: abdominal pain, no bright red blood in stool. Musculoskeletal ROS: no myalgias or arthralgias Neurological ROS: no TIA or stroke symptoms Dermatological ROS: no new or changing skin lesions, rashes or pruritis Physical Exam Physical Exam General appearance: alert, cooperative, no distress, appears stated age Head: Normocephalic, without obvious abnormality, atraumatic Eyes: conjunctivae/corneas clear. PERRL, EOM's intact. Fundi benign Throat: Lips, mucosa, and tongue normal. Teeth and gums normal Neck: supple, symmetrical, trachea midline, no adenopathy, thyroid: not enlarged, symmetric, no tenderness/mass/nodules, no carotid bruit and no JVD Lungs: clear to auscultation bilaterally Heart: regular rate and rhythm, S1, S2 normal, no murmur, click, rub or gallop Abdomen: soft, epi-tender. Bowel sounds normal. No masses, no organomegaly, small hernia noted. large prior incision healed Extremities: extremities normal, atraumatic, no cyanosis or edema Pulses: 2+ and symmetric Skin: Skin color, texture, turgor normal. No rashes or lesions Neurologic: Grossly normal Last 24 Hour Vital Signs Date Time Temp Pulse Resp B/P (MAP) Pulse Ox O2 Delivery O2 Flow Rate FiO2 12/29/18 13:32 98.0 12/29/18 11:27 98.0 94 14 143/101 100 Room Air 12/29/18 10:30 98.0 94 14 143/101 100 Room Air 12/29/18 09:10 98.6 90 12 163/97 100 Room Air 12/29/18 08:57 98.6 12/29/18 08:20 117 18 Room Air 12/29/18 08:20 98.6 117 20 155/135 98 Room Air 12/29/18 08:00 98.6 119 20 177/120 (139) 98 Room Air Laboratory Tests Test 12/29/18 08:10 12/29/18 08:31 White Blood Count 11.1 K/UL (4.8-10.8) H Red Blood Count 4.91 M/UL (4.20-5.40) Hemoglobin 15.6 G/DL (12.0-16.0) Hematocrit 48.5 % (37.0-47.0) H Mean Corpuscular Volume 99 FL (80-99) Mean Corpuscular Hemoglobin 31.8 PG (27.0-31.0) H Mean Corpuscular Hemoglobin Concent 32.2 G/DL (32.0-36.0) Red Cell Distribution Width 13.8 % (11.6-14.8) Platelet Count 290 K/UL (150-450) Mean Platelet Volume 6.6 FL (6.5-10.1) Neutrophils (%) (Auto) 76.0 % (45.0-75.0) H Lymphocytes (%) (Auto) 14.5 % (20.0-45.0) L Monocytes (%) (Auto) 7.9 % (1.0-10.0) Eosinophils (%) (Auto) 0.6 % (0.0-3.0) Basophils (%) (Auto) 1.1 % (0.0-2.0) Prothrombin Time 10.3 SEC (9.30-11.50) Prothromb Time International Ratio 1.0 (0.9-1.1) Activated Partial Thromboplast Time 40 SEC (23-33) H Urine Color Pale yellow Urine Appearance Slightly cloudy Urine pH 5 (4.5-8.0) Urine Specific [place] 1.025 (1.005-1.035) Urine Protein 3+ (NEGATIVE) H Urine Glucose (UA) 4+ (NEGATIVE) H Urine Ketones 4+ (NEGATIVE) H Urine Blood 3+ (NEGATIVE) H Urine Nitrite Negative (NEGATIVE) Urine Bilirubin Negative (NEGATIVE) Urine Urobilinogen Normal MG/DL (0.0-1.0) Urine Leukocyte Esterase Negative (NEGATIVE) Urine RBC 5-10 /HPF (0 - 2) H Urine WBC 0-2 /HPF (0 - 2) Urine Squamous Epithelial Cells Many /LPF (NONE/OCC) H Urine Bacteria Few /HPF (NONE) Urine Granular Casts 2-4 /LPF (NONE) H Urine Fine Granular Casts 5-10 /LPF (NONE) H Urine Yeast Few /HPF (NONE) H Urine HCG, Qualitative Negative (NEGATIVE) Sodium Level 129 MMOL/L (136-145) L Potassium Level 5.1 MMOL/L (3.5-5.1) Chloride Level 93 MMOL/L (98-107) L Carbon Dioxide Level 12 MMOL/L (21-32) L Anion Gap 24 mmol/L (5-15) H Blood Urea Nitrogen 10 mg/dL (7-18) Creatinine 1.3 MG/DL (0.55-1.30) Estimat Glomerular Filtration Rate 54.7 mL/min (>60) Glucose Level 442 MG/DL (74-106) H Calcium Level 10.6 MG/DL (8.5-10.1) H Magnesium Level 1.8 MG/DL (1.8-2.4) Total Bilirubin 0.7 MG/DL (0.2-1.0) Aspartate Amino Transf (AST/SGOT) 56 U/L (15-37) H Alanine Aminotransferase (ALT/SGPT) 73 U/L (12-78) Alkaline Phosphatase 195 U/L (46-116) H Total Protein 9.5 G/DL (6.4-8.2) H Albumin 4.2 G/DL (3.4-5.0) Globulin 5.3 g/dL Albumin/Globulin Ratio 0.8 (1.0-2.7) L Lipase 532 U/L (73-393) H Human Chorionic Gonadotropin, Quant 1 mIU/mL (1-6) Acetone Level Positive-moderate (NEGATIVE) Venous Blood pH 7.210 Venous Blood Partial Pressure CO2 16.8 Venous Blood Partial Pressure O2 69.5 Venous Blood HCO3 6.6 Venous Blood Total Carbon Dioxide Pending Venous Bld O2 Saturation (Measured) Pending Venous Blood Oxygen Saturation 90.3 Venous Blood Base Excess -19.2 Methemoglobin 0.9 Sodium (Blood Gas) Pending Microbiology Date/Time Source Procedure Growth Status 12/29/18 11:03 Rectum Received Height (Feet): 5 Height (Inches): 2.00 Weight (Pounds): 166 Medications Current Medications Medications (Trade) Dose Ordered Sig/Greta Route PRN Reason Start Time Stop Time Status Last Admin Dose Admin Acetaminophen (Tylenol) 650 mg Q4H PRN ORAL Fever (temp>100.5F) 12/29/18 12:15 01/28/19 12:14 Albuterol/ Ipratropium (Albuterol/ Ipratropium) 3 ml Q4H PRN HHN Shortness of Breath 12/29/18 12:15 01/03/19 12:14 Clonidine HCl (Catapres Tab) 0.1 mg Q4H PRN ORAL SBP > 160mmHg 12/29/18 12:45 01/28/19 12:44 Dextrose (Dextrose 50%) 25 ml Q30M PRN IV HYPOGLYCEMIA 12/29/18 12:15 01/28/19 12:14 Dextrose (Dextrose 50%) 50 ml Q30M PRN IV Hypoglycemia 12/29/18 12:15 01/28/19 12:14 Heparin Sodium (Porcine) (Heparin 5000 units/ml) 5,000 units EVERY 12 HOURS SUBQ 12/29/18 21:00 01/28/19 20:59 Insulin Human Regular (NovoLIN R) 5 units PRN PRN IV BS 200-299 12/29/18 12:30 01/28/19 12:29 Insulin Human Regular (NovoLIN R) 10 units PRN PRN IV BS=>300 12/29/18 12:30 01/28/19 12:29 Insulin Human Regular 100 units/ Sodium Chloride 100 ml @ 0 mls/hr Q24H IV 12/29/18 12:30 01/28/19 12:29 12/29/18 13:12 Iopamidol (Isovue-300 100ml) 100 ml NOW PRN INJ Radiology Procedure 12/29/18 08:15 12/31/18 08:14 Lorazepam (Ativan 2mg/ml 1ml) 2 mg Q2H PRN IV agitation 12/29/18 12:15 01/05/19 12:14 Miscellaneous Medication (Insulin Rate Change) 1 ea PRN PRN MISC To Patient Comfort 12/29/18 12:30 01/28/19 12:29 Morphine Sulfate (Morphine Sulfate) 4 mg Q4H PRN IVP Severe Pain (Pain Scale 7-10) 12/29/18 12:15 01/05/19 12:14 12/29/18 13:02 Nitroglycerin (Ntg) 0.4 mg Q5M PRN SL Prn Chest Pain 12/29/18 12:15 01/28/19 12:14 Ondansetron HCl (Zofran) 4 mg Q6H PRN IVP Nausea & Vomiting 12/29/18 12:15 01/28/19 12:14 Pantoprazole (Protonix) 40 mg DAILY IVP 12/29/18 12:30 01/28/19 12:29 12/29/18 13:03 Polyethylene Glycol (Miralax) 17 gm DAILYPRN PRN ORAL Constipation 12/29/18 12:15 01/28/19 12:14 Sodium Chloride 1,000 ml @ 150 mls/hr Q6H40M IV 12/29/18 12:15 01/28/19 12:14 12/29/18 13:03 Assessment/Plan Problem List: (1) Abdominal pain Assessment & Plan: 43-year-old female with abdominal pain epigastric region likely related to pancreatitis not her ventral hernia. Ventral hernia stable incisional at this time. See below ICD Codes: R10.9 - Unspecified abdominal pain SNOMED: 80478469 Qualifiers: Qualified Codes: R10.84 - Generalized abdominal pain (2) Pancreatitis Assessment & Plan: Continue with medical management of acute pancreatitis. N.p.o., IV fluids, intake and output management. Pain control. Trend labs. Hold diet until pain patient's pain improves ICD Codes: K85.90 - Acute pancreatitis without necrosis or infection, unspecified SNOMED: [id number], [id number] Qualifiers: Qualified Codes: K86.1 - Other chronic pancreatitis (3) Ventral hernia Assessment & Plan: Patient with history of 3 ventral incisional hernia repairs with mesh over the past 2 years. Patient seems to have recurrence on the CT scan but recurrence is minimal and fat-containing. Would not recommend any acute surgical intervention at this time. Patient will follow-up with her primary surgeon as outpatient for further evaluation. CT scans of be made available to him for review. Thank you for this consultation we will follow with recommendations ICD Codes: K43.9 - Ventral hernia without obstruction or gangrene SNOMED: [id number] Lefty eMraz Dec 29, 2018 14:34
--- NOTE | 2018-12-29 15:00 | NUR ---
NURSE NOTES: Insulin drip is titrated down to 2 units/hr per Algorithm 3 protocol/order for blood glucose of 118. Pt is asleep in no apparent distress. Pt is able to self-reposition in bed; currently remains NPO.
--- NOTE | 2018-12-29 16:00 | NUR ---
NURSE NOTES: Insulin drip is titrated up to 3units/hr per Algorithm 3 protocol/order for blood glucose of 120. Pt is now awake, watching TV, reports worsening abdominal pain. Will administer next PRN dose of Morphine at/after 1700 per order.
--- NOTE | 2018-12-29 17:00 | NUR ---
NURSE NOTES: Insulin drip has been titrated down to 1unit/hour per Algorithm 3 protocol/order for blood glucose of 105. Pt was administered another dose of Morphine 4mg IVP per PRN order for severe abdominal pain. Pt is ambulatory and able to self-reposition in bed and is refusing to have bedding changed at this time.
--- NOTE | 2018-12-29 18:00 | NUR ---
NURSE NOTES: Insulin drip is maintained at 1unit/hr per Algorithm 3 order/protocol for blood glucose of 109. Per Insulin drip protocol, next blood glucose check/accucheck is to be done two hours from now at 1999.
--- NOTE | 2018-12-29 19:10 | NUR ---
HAND-OFF: Report given to Daniel RN. VS stable. Endorsed plan of care.
--- NOTE | 2018-12-29 19:20 | NUR ---
NURSE NOTES: Received pt and report from Radha PERLA. Pt's AOx4, alert and verbally responsive. front desk monitor displays NSR with heart rate in the upper 90's. Temp 98.8F axillary. On room air with O2sat at 99%. Peripheral IV access is present on left FA #20G and right hand #22G, running NS 150ml/hr, Insulin drip 1units/hr with Algo#3. Pt is ambulatory, and able to void on her own. Bedside commode is set up. Bed is locked with two side rails up, at semi-hunter's, in lowest position and call light within easy reach. Will continue to monitor pt
[2018-12-29] MEDS: Insulin Rate Change 1 Each MISC PRN (20:03)
[2018-12-29] MEDS: Heparin 5000 units/ml inj SUBQ SCH (21:09)
--- NOTE | 2018-12-29 21:15 | History and Physical Report ---
DATE OF ADMISSION: 12/29/2018 CHIEF COMPLAINT: The patient is a 43-year-old female, who presents with a chief complaint of abdominal pain. HISTORY OF PRESENT ILLNESS: The patient has a history of 3 abdominal hernia repairs in the past 3 years. The last being in May of 2018. The patient states history of present illness began approximately 2 months ago. The patient began to experience enlarging of her abdominal hernia. The patient began to experience abdominal pain. Abdominal pain has increased over the last 3 days. The patient is now unable to tolerate p.o. liquids or solids. The patient presented to [place] emergency room. The patient was admitted for abdominal pain to rule out incarcerated hernia versus pancreatitis. REVIEW OF SYSTEMS: CONSTITUTIONAL: The patient denies weight loss or weight gain. The patient denies fevers or chills. HEENT: The patient denies ear or throat pain. The patient denies headache. CARDIOVASCULAR: The patient denies palpitations or chest pain. CHEST: The patient denies wheeze or shortness of breath. ABDOMINAL: The patient complains of generalized abdominal pain. The patient complains of nausea. The patient complains of decreased oral intake. The patient denies diarrhea or constipation. GENITOURINARY: The patient denies dysuria or increased frequency of urination. NEUROMUSCULAR: The patient denies seizures or generalized weakness. PAST MEDICAL HISTORY: Significant for: 1. Type 2 diabetes. 2. Hypertension. 3. Incisional abdominal hernia. PAST SURGICAL HISTORY: Significant for abdominal hernia repair x3, first being in 2016 x2. Last being in May of 2018 with mesh repair at [facility]. CURRENT MEDICATIONS: 1. Amlodipine 5 mg 1 tablet p.o. daily. 2. Doxycycline 100 mg p.o. daily. 3. Fluconazole 100 mg p.o. twice daily. 4. Gabapentin 300 mg p.o. twice daily. 5. Victoza 0.6 mg subcutaneously daily. 6. Metformin 1000 mg p.o. twice daily. 7. Nystatin 15 grams cream applied 3 times daily. 8. Regular insulin sliding scale. 9. Basaglar 20 units subcutaneously twice daily. 10. Empagliflozin 10 mg p.o. daily. ALLERGIES: No known drug allergies. SOCIAL HISTORY: The patient is engaged and is disabled. The patient admits to tobacco use one pack per day. The patient denies alcohol. PHYSICAL EXAMINATION: VITAL SIGNS: Temperature 98.6, respirations 20, pulse 119, and blood pressure 170/120. GENERAL: The patient is a well-developed and well-nourished female, in moderate pain distress. HEENT: Eyes, pupils are equal and responsive to light and accommodation. Extraocular movements are intact. NECK: Supple without lymphadenopathy. CHEST: Lungs are clear to auscultation bilaterally without wheezes or rales. CARDIOVASCULAR: Tachycardic, regular rhythm with S1, S2 normal without murmurs, rubs, or gallops. ABDOMEN: Soft, slightly distended with decreased bowel sounds. There is pain to palpation in the bilateral lower quadrants. There is no rebound or guarding noted. EXTREMITIES: Negative for clubbing, cyanosis, or edema. RECTAL/GENITAL: Refused. NEUROLOGIC: Cranial nerves II through XII are grossly intact without focal deficits. Motor strength is 5/5 bilaterally. Deep tendon reflexes are 2+ plantar. LABORATORY STUDIES: WBC 11.1, hemoglobin 13.6, hematocrit 38.5, and platelets 298,000. Sodium 129, potassium 5.1, chloride 93, CO2 12, BUN 10, creatinine 1.3, and glucose elevated at 442. AST elevated at 56 and alkaline phosphatase elevated at 195. Lipase elevated at 532. Urinalysis showed 3+ protein, 4+ glucose, 4+ ketones, 3+ blood. A CT scan of the abdomen showed enlargement of the pancreas and indistinctiveness of the peripancreatic fat consistent with non-necrotizing and acute pancreatitis. ASSESSMENT: This is a 43-year-old female. 1. Acute pancreatitis. 2. Diabetic ketoacidosis. 3. Umbilical hernia. 4. Ventral hernia, reducible. 5. Hypertension. 6. Diabetes type 2. 7. History of pancreatitis. TREATMENT: 1. Acute pancreatitis. A Gastroenterology consultation has been obtained with Dr. Monty Jaimes. We will follow recommendations of Gastroenterology. The patient is currently NPO. 2. Diabetic ketoacidosis. The patient is currently on an insulin drip in the intensive care unit. An intensive care consultation has been obtained with Dr. Lavelle Diggs. We will follow recommendations of Dr. Diggs. 3. Ventral hernia. The patient has had 3 ventral hernia repairs. A General Surgery consultation has been obtained with Dr. Meraz. 4. Hypertension. Continue amlodipine as above. 5. Diabetes type 2. As above, the patient has been placed on a insulin drip. Marshal Gilbert M.D. DR: VAMSI JOB#: [id number] CC:
[2018-12-29] MEDS: LORazepam Inj 2mg/ml 1ml IV PRN (21:18)
--- NOTE | 2018-12-29 22:00 | NUR ---
NURSE NOTES: Pt's resting in bed, watching TV. Denies any concerns/complaints at this time. Will continue to monitor.
[2018-12-30] VITALS (25 sets, daily range): BP systolic 100–166; BP diastolic 70–145
--- NOTE | 2018-12-30 | NUR ---
NURSE NOTES: Pt's resting in bed, asleep, with eyes closed. No acute distress at this time. Will continue to monitor.
--- NOTE | 2018-12-30 02:00 | NUR ---
NURSE NOTES: Pt's resting in bed, asleep. VS stable. No acute distress at this time. Will continue to monitor.
[2018-12-30] MEDS: Insulin Rate Change 1 Each MISC PRN ×4 (02:24→10:01)
[2018-12-30] MEDS: Morphine Sulfate 4mg/ml Inj (IV USE ONLY) IVP PRN ×3 (02:25→22:39)
[2018-12-30] MEDS: LORazepam Inj 2mg/ml 1ml IV PRN ×2 (03:00→22:56)
--- NOTE | 2018-12-30 04:00 | NUR ---
NURSE NOTES: Pt's resting in bed, in no acute distress at this time. See insulin flow sheet for more info. VS stable. Will continue to monitor.
[2018-12-30 05:16] LABS: HEMATOCRIT 40.4 % (37.0-47.0); HEMOGLOBIN 13.2 G/DL (12.0-16.0); MEAN CORPUSCULAR VOLUME 98 FL (80-99); PLATELET COUNT 93 K/UL (150-450); RED CELL DISTRIBUTION WIDTH 13.7 % (11.6-14.8); WHITE BLOOD COUNT 5.4 K/UL (4.8-10.8)
[2018-12-30 05:35] LABS: ANION GAP 14 mmol/L (5-15); BLOOD UREA NITROGEN 7 mg/dL (7-18); CALCIUM 8.9 MG/DL (8.5-10.1); CARBON DIOXIDE 16 MMOL/L (21-32); CHLORIDE 106 MMOL/L (98-107); CREATININE 0.6 MG/DL (0.55-1.30); SODIUM 136 MMOL/L (136-145)
[2018-12-30 05:51] LABS: ALANINE AMINOTRANSFERASE 58 U/L (12-78); ALBUMIN 3.2 G/DL (3.4-5.0); ALKALINE PHOSPHATASE 135 U/L (46-116); ASPARTATE AMINO TRANSFERASE 125 U/L (15-37); BILIRUBIN,DIRECT < 0.1 MG/DL (0.0-0.3); BILIRUBIN,TOTAL 0.5 MG/DL (0.2-1.0); PHOSPHORUS 1.4 MG/DL (2.5-4.9)
--- NOTE | 2018-12-30 06:00 | NUR ---
NURSE NOTES: Pt's resting in bed, alert and responsive, crying for food, stated "i am hungry". Paged Dr Diggs to resume her diet, waiting for call back. Vs stable. BS stable. Will continue to monitor
--- NOTE | 2018-12-30 07:10 | NUR ---
HAND-OFF: Report given to MINDA Chairez.
--- NOTE | 2018-12-30 07:15 | NUR ---
NURSE NOTES: RECEIVED PATIENT FROM Adriana ROSE RN. PATIENT IS LYING IN BED ALERT, AWAKE AND ORIENTED. HOOKED TO BUYER GRAIN. HR OF 98. ON ROOM AIR. NO SIGNS OF DISTRESS OF THE MOMENT. STILL ON NPO. IV'S ON L H G22 AND L FA G20 WITH IVF RUNNING NS AT 150ML/HR AND ON INSULIN DRIP AT 1UNIT/HR. CALL LIGHT WITHIN REACH. BED AT LOWEST POSITION. SIDE RAILS UP. WILL CONTINUE TO MONITOR.
--- NOTE | 2018-12-30 07:40 | NUR ---
NURSE NOTES: PT C/O ABDOMINAL PAIN, IV PAIN MEDS GIVEN. WILL CONTINUE TO MONITOR.
--- NOTE | 2018-12-30 08:57 | NUR ---
NURSE NOTES: SPOKE WITH DR MARINELLI WITH NEW ORDERS MADE. WILL CONTINUE TO MONITOR.
[2018-12-30] MEDS: Heparin 5000 units/ml inj SUBQ SCH ×2 (09:00→20:56)
[2018-12-30] MEDS: Pantoprazole Inj IVP SCH (09:02)
[2018-12-30] MEDS ORDERED: Morphine Sulfate 4mg/ml Inj (IV USE ONLY) IVP PRN (09:26)
[2018-12-30] MEDS ORDERED: Ketorolac 30mg Inj IV PRN (10:00)
--- NOTE | 2018-12-30 10:01 | Pulmonolgy Critical Care Note ---
Critical Care - Asmt/Plan Problems: (1) DKA (diabetic ketoacidoses) (2) Pancreatitis (3) Abdominal pain Respiratory: monitor respiratory rate, adjust FIO2, CXR Cardiac: continue pressors, continue to monitor HR/BP Renal: F/U I&O, check electrolytes Infectious Disease: check cultures Gastrointestinal: continue feedings/current rate Endocrine: monitor blood sugar, check HgA1C, continue sliding scale insulin Hematologic: monitor H/H, transfuse if hgb<8.5 Neurologic: PRN Morphine, keep patient comfortable Prophylaxis: Protonix Time Spent (Minutes): 40 Notes Reviewed: splunk consultant, cardio Discussed with: nurses, consultants, pillowcase makerestate manager - Objective Last 24 Hour Vital Signs Date Time Temp Pulse Resp B/P (MAP) Pulse Ox O2 Delivery O2 Flow Rate FiO2 12/30/18 09:00 114 15 159/140 100 Room Air 12/30/18 08:00 101 12/30/18 08:00 Room Air 12/30/18 08:00 97.7 107 14 166/145 100 Room Air 12/30/18 07:08 131 14 100 Room Air 21 12/30/18 07:00 105 17 151/110 99 Room Air 12/30/18 06:00 98 17 153/113 99 Room Air 12/30/18 05:00 94 17 135/96 99 Room Air 12/30/18 04:00 102 12/30/18 04:00 Room Air 12/30/18 04:00 100 17 146/114 99 Room Air 12/30/18 03:00 110 17 143/107 99 Room Air 12/30/18 02:00 107 17 116/91 99 Room Air 12/30/18 01:00 96 17 127/86 99 Room Air 12/30/18 00:00 98 17 115/102 99 Room Air 12/30/18 00:00 98 12/30/18 00:00 Room Air 12/29/18 23:00 115 17 142/111 99 Room Air 12/29/18 22:00 110 17 120/105 99 Room Air 12/29/18 21:00 98.8 118 17 137/105 99 Room Air 12/29/18 20:00 Room Air 12/29/18 20:00 96 12/29/18 20:00 87 15 133/91 100 Room Air 12/29/18 19:00 75 16 115/92 100 Room Air 12/29/18 18:00 86 16 116/67 100 Room Air 12/29/18 17:40 98.0 12/29/18 17:00 86 17 133/104 99 Room Air 12/29/18 16:00 91 12/29/18 16:00 97.8 89 13 123/87 97 Room Air 12/29/18 16:00 Room Air 12/29/18 15:00 91 13 125/90 97 Room Air 12/29/18 14:00 98 14 132/105 100 Room Air 12/29/18 13:00 104 14 139/105 100 Room Air 12/29/18 12:00 Room Air 12/29/18 12:00 98.6 95 14 145/85 100 Room Air 12/29/18 12:00 105 12/29/18 11:27 98.0 94 14 143/101 100 Room Air 12/29/18 10:30 98.0 94 14 143/101 100 Room Air Status: awake Condition: critical HEENT: atraumatic Neck: full ROM Lungs: clear Heart: HR/BP stable Abdomen: soft, active bowel sounds, feeding tube Extremities: edema Micro: Microbiology Date/Time Source Procedure Growth Status 12/29/18 08:10 Urine,Clean Catch Urine Culture - Preliminary Resulted 12/29/18 11:03 Rectum Received Accucheck: 137 Critical Care - Subjective ROS Limited/Unobtainable: No Condition: critical EKG Rhythm: Sinus Rhythm FI02: 21 Sputum Amount: None I&O: Intake and Output 12/29/18 12/30/18 18:59 06:59 Intake Total 4773 ml 1823 ml Output Total 200 ml Balance 4773 ml 1623 ml Intake IV Total 4773 ml 1823 ml Output Urine Total 200 ml # Voids 1 1 Labs: Laboratory Tests Test 12/29/18 14:18 12/30/18 03:25 Urine Opiates Screen Positive (NEGATIVE) H Urine Barbiturates Screen Negative (NEGATIVE) Phencyclidine (PCP) Screen Negative (NEGATIVE) Urine Amphetamines Screen Negative (NEGATIVE) Urine Benzodiazepines Screen Negative (NEGATIVE) Urine Cocaine Screen Negative (NEGATIVE) Urine Marijuana (THC) Screen Negative (NEGATIVE) White Blood Count 5.4 K/UL (4.8-10.8) # Red Blood Count 4.10 M/UL (4.20-5.40) L Hemoglobin 13.2 G/DL (12.0-16.0) Hematocrit 40.4 % (37.0-47.0) Mean Corpuscular Volume 98 FL (80-99) Mean Corpuscular Hemoglobin 32.2 PG (27.0-31.0) H Mean Corpuscular Hemoglobin Concent 32.7 G/DL (32.0-36.0) Red Cell Distribution Width 13.7 % (11.6-14.8) Platelet Count 93 K/UL (150-450) #L Mean Platelet Volume 8.1 FL (6.5-10.1) Neutrophils (%) (Auto) % (45.0-75.0) Lymphocytes (%) (Auto) % (20.0-45.0) Monocytes (%) (Auto) % (1.0-10.0) Eosinophils (%) (Auto) % (0.0-3.0) Basophils (%) (Auto) % (0.0-2.0) Differential Total Cells Counted 100 Neutrophils % (Manual) 58 % (45-75) Lymphocytes % (Manual) 37 % (20-45) Monocytes % (Manual) 3 % (1-10) Eosinophils % (Manual) 2 % (0-3) Basophils % (Manual) 0 % (0-2) Band Neutrophils 0 % (0-8) Platelet Estimate Decreased L Platelet Morphology Normal Red Blood Cell Morphology Normal Prothrombin Time 10.6 SEC (9.30-11.50) Prothromb Time International Ratio 1.0 (0.9-1.1) Activated Partial Thromboplast Time 26 SEC (23-33) Sodium Level 136 MMOL/L (136-145) Potassium Level 4.0 MMOL/L (3.5-5.1) Chloride Level 106 MMOL/L (98-107) Carbon Dioxide Level 16 MMOL/L (21-32) L Anion Gap 14 mmol/L (5-15) Blood Urea Nitrogen 7 mg/dL (7-18) Creatinine 0.6 MG/DL (0.55-1.30) # Estimat Glomerular Filtration Rate > 60 mL/min (>60) Glucose Level 84 MG/DL (74-106) # Calcium Level 8.9 MG/DL (8.5-10.1) Phosphorus Level 1.4 MG/DL (2.5-4.9) L Total Bilirubin 0.5 MG/DL (0.2-1.0) Direct Bilirubin < 0.1 MG/DL (0.0-0.3) Aspartate Amino Transf (AST/SGOT) 125 U/L (15-37) H Alanine Aminotransferase (ALT/SGPT) 58 U/L (12-78) Alkaline Phosphatase 135 U/L (46-116) H Total Protein 7.2 G/DL (6.4-8.2) Albumin 3.2 G/DL (3.4-5.0) L Lipase 182 U/L (73-393) Lavelle Diggs MD Dec 30, 2018 10:01
--- NOTE | 2018-12-30 10:26 | General Progress Note ---
Assessment/Plan Problem List: (1) Chronic calcific pancreatitis ICD Codes: K86.1 - Other chronic pancreatitis SNOMED: 425951363 (2) History of diabetes mellitus ICD Codes: Z86.39 - Personal history of other endocrine, nutritional and metabolic disease SNOMED: 571858325 (3) Diabetes mellitus out of control ICD Codes: E11.65 - Type 2 diabetes mellitus with hyperglycemia SNOMED: 31724721, 048525204 (4) Ventral hernia ICD Codes: K43.9 - Ventral hernia without obstruction or gangrene SNOMED: 538760251 (5) Abdominal pain ICD Codes: R10.9 - Unspecified abdominal pain SNOMED: 93700706 Qualifiers: Qualified Codes: R10.84 - Generalized abdominal pain (6) DKA (diabetic ketoacidoses) ICD Codes: E11.10 - Type 2 diabetes mellitus with ketoacidosis without coma SNOMED: 621408265, 31517704 Qualifiers: Qualified Codes: E11.10 - Type 2 diabetes mellitus with ketoacidosis without coma Assessment/Plan: on 1799 ADA diet doubt active pancreatitis DM control will fu Subjective ROS Limited/Unobtainable: Yes Allergies: Coded Allergies: No Known Allergies (Unverified , 08/04/18) Objective Last 24 Hour Vital Signs Date Time Temp Pulse Resp B/P (MAP) Pulse Ox O2 Delivery O2 Flow Rate FiO2 12/30/18 09:00 114 15 159/140 100 Room Air 12/30/18 08:00 101 12/30/18 08:00 Room Air 12/30/18 08:00 97.7 107 14 166/145 100 Room Air 12/30/18 07:08 131 14 100 Room Air 21 12/30/18 07:00 105 17 151/110 99 Room Air 12/30/18 06:00 98 17 153/113 99 Room Air 12/30/18 05:00 94 17 135/96 99 Room Air 12/30/18 04:00 102 12/30/18 04:00 Room Air 12/30/18 04:00 100 17 146/114 99 Room Air 12/30/18 03:00 110 17 143/107 99 Room Air 12/30/18 02:00 107 17 116/91 99 Room Air 12/30/18 01:00 96 17 127/86 99 Room Air 12/30/18 00:00 98 17 115/102 99 Room Air 12/30/18 00:00 98 12/30/18 00:00 Room Air 12/29/18 23:00 115 17 142/111 99 Room Air 12/29/18 22:00 110 17 120/105 99 Room Air 12/29/18 21:00 98.8 118 17 137/105 99 Room Air 12/29/18 20:00 Room Air 12/29/18 20:00 96 12/29/18 20:00 87 15 133/91 100 Room Air 12/29/18 19:00 75 16 115/92 100 Room Air 12/29/18 18:00 86 16 116/67 100 Room Air 12/29/18 17:40 98.0 12/29/18 17:00 86 17 133/104 99 Room Air 12/29/18 16:00 91 12/29/18 16:00 97.8 89 13 123/87 97 Room Air 12/29/18 16:00 Room Air 12/29/18 15:00 91 13 125/90 97 Room Air 12/29/18 14:00 98 14 132/105 100 Room Air 12/29/18 13:00 104 14 139/105 100 Room Air 12/29/18 12:00 Room Air 12/29/18 12:00 98.6 95 14 145/85 100 Room Air 12/29/18 12:00 105 12/29/18 11:27 98.0 94 14 143/101 100 Room Air 12/29/18 10:30 98.0 94 14 143/101 100 Room Air Intake and Output 12/29/18 12/30/18 18:59 06:59 Intake Total 4773 ml 1823 ml Output Total 200 ml Balance 4773 ml 1623 ml Intake IV Total 4773 ml 1823 ml Output Urine Total 200 ml # Voids 1 1 Laboratory Tests 12/29/18 14:18: Urine Opiates Screen PositiveH, Urine Barbiturates Screen Negative, Phencyclidine (PCP) Screen Negative, Urine Amphetamines Screen Negative, Urine Benzodiazepines Screen Negative, Urine Cocaine Screen Negative, Urine Marijuana (THC) Screen Negative 12/30/18 03:25: White Blood Count 5.4#, Red Blood Count 4.10L, Hemoglobin 13.2, Hematocrit 40.4 , Mean Corpuscular Volume 98, Mean Corpuscular Hemoglobin 32.2H, Mean Corpuscular Hemoglobin Concent 32.7, Red Cell Distribution Width 13.7, Platelet Count 93#L, Mean Platelet Volume 8.1, Neutrophils (%) (Auto) , Lymphocytes (%) ( Auto) , Monocytes (%) (Auto) , Eosinophils (%) (Auto) , Basophils (%) (Auto) , Differential Total Cells Counted 100, Neutrophils % (Manual) 58, Lymphocytes % ( Manual) 37, Monocytes % (Manual) 3, Eosinophils % (Manual) 2, Basophils % ( Manual) 0, Band Neutrophils 0, Platelet Estimate DecreasedL, Platelet Morphology Normal, Red Blood Cell Morphology Normal, Prothrombin Time 10.6, Prothromb Time International Ratio 1.0, Activated Partial Thromboplast Time 26, Sodium Level 136, Potassium Level 4.0, Chloride Level 106, Carbon Dioxide Level 16L, Anion Gap 14, Blood Urea Nitrogen 7, Creatinine 0.6#, Estimat Glomerular Filtration Rate > 60, Glucose Level 84#, Calcium Level 8.9, Phosphorus Level 1.4L, Total Bilirubin 0.5, Direct Bilirubin < 0.1, Aspartate Amino Transf (AST/ SGOT) 125H, Alanine Aminotransferase (ALT/SGPT) 58, Alkaline Phosphatase 135H, Total Protein 7.2, Albumin 3.2L, Lipase 182 Height (Feet): 5 Height (Inches): 2.00 Weight (Pounds): 184 General Appearance: alert EENT: normal ENT inspection Neck: supple Cardiovascular: normal rate Respiratory/Chest: decreased breath sounds Abdomen: normal bowel sounds, non tender, soft Extremities: non-tender Monty Jaimes MD Dec 30, 2018 10:26
--- NOTE | 2018-12-30 10:32 | NUR ---
NURSE NOTES: SEEN AND EXAMINED BY DR HIGGINS WITH NEW ORDERS MADE. PATIENT SEEN ASLEEP IN THE BED. WILL CONTINUE TO MONITOR.
--- NOTE | 2018-12-30 11:12 | NUR ---
*-* NO INSURANCE INFORMATION IN THE BAR UNABLE TO SEND CLINICALS OR REVIEWS *-*
[2018-12-30] MEDS: NovoLOG Insulin Flexpen SUBQ SCH ×4 (11:21→20:53)
[2018-12-30] MEDS: Morphine Sulfate 2mg/ml Inj(IV/IM USE ONLY) IVP PRN ×2 (12:03→17:14)
[2018-12-30] MEDS: Pancrelipase Dr Cap ORAL SCH ×2 (12:12→17:14)
[2018-12-30] MEDS ORDERED: Sodium Phosphate 30 MM in NS 275 ML IV ONE (12:45)
--- NOTE | 2018-12-30 12:58 | NUR ---
NURSE NOTES: SPOKE WITH DR MARINELLI AND INFORMED OF BS OF 48. HE'S OK NOT O ADMIN D50/50 NOW. PATIENT SEEN HAVING HER LUNCH. ORDERED TO DC INSULIN DRIP. WILL CONTINUE TO MONITOR.
--- NOTE | 2018-12-30 14:15 | NUR ---
NURSE NOTES: PATIENT SEEN LYING IN BED ASLEEP. NO SIGNS OF DISTRESS. WILL CONTINUE TO MONITOR.
--- NOTE | 2018-12-30 16:04 | Surgery Progress Note ---
Surgery Progress Note Subjective Symptoms: improved, tolerating diet, voiding well, passing flatus, pain decreased Additional Comments leukocytosis improved lipase improved states she feels better no n/v/f/c. Objective Last 24 Hour Vital Signs Date Time Temp Pulse Resp B/P (MAP) Pulse Ox O2 Delivery O2 Flow Rate FiO2 12/30/18 15:00 92 13 125/80 100 Room Air 12/30/18 14:00 96 22 130/87 97 Room Air 12/30/18 13:00 102 24 123/98 97 Room Air 12/30/18 12:00 97.9 96 24 133/86 100 Room Air 12/30/18 12:00 Room Air 12/30/18 12:00 101 12/30/18 11:00 95 22 133/86 100 Room Air 12/30/18 10:00 99 12 119/70 98 Room Air 12/30/18 09:00 114 15 159/140 100 Room Air 12/30/18 08:00 101 12/30/18 08:00 Room Air 12/30/18 08:00 97.7 107 14 166/145 100 Room Air 12/30/18 07:08 131 14 100 Room Air 12/30/18 07:00 105 17 151/110 99 Room Air 12/30/18 06:00 98 17 153/113 99 Room Air 12/30/18 05:00 94 17 135/96 99 Room Air 12/30/18 04:00 102 12/30/18 04:00 Room Air 12/30/18 04:00 100 17 146/114 99 Room Air 12/30/18 03:00 110 17 143/107 99 Room Air 12/30/18 02:00 107 17 116/91 99 Room Air 12/30/18 01:00 96 17 127/86 99 Room Air 12/30/18 00:00 98 17 115/102 99 Room Air 12/30/18 00:00 98 12/30/18 00:00 Room Air 12/29/18 23:00 115 17 142/111 99 Room Air 12/29/18 22:00 110 17 120/105 99 Room Air 12/29/18 21:00 98.8 118 17 137/105 99 Room Air 12/29/18 20:00 Room Air 12/29/18 20:00 96 12/29/18 20:00 87 15 133/91 100 Room Air 12/29/18 19:00 75 16 115/92 100 Room Air 12/29/18 18:00 86 16 116/67 100 Room Air 12/29/18 17:40 98.0 12/29/18 17:00 86 17 133/104 99 Room Air I&O Intake and Output 12/29/18 12/30/18 19:00 07:00 Intake Total 4924 ml 1823 ml Output Total 200 ml Balance 4924 ml 1623 ml IV Total 4924 ml 1823 ml Output Urine Total 200 ml # Voids 2 Cardiovascular: RSR Respiratory: clear Abdomen: soft, flat, non-tender, present bowel sounds, non-distended Extremities: no edema, no tenderness, no cyanosis Laboratory Tests Test 12/30/18 03:25 White Blood Count 5.4 K/UL (4.8-10.8) # Red Blood Count 4.10 M/UL (4.20-5.40) L Hemoglobin 13.2 G/DL (12.0-16.0) Hematocrit 40.4 % (37.0-47.0) Mean Corpuscular Volume 98 FL (80-99) Mean Corpuscular Hemoglobin 32.2 PG (27.0-31.0) H Mean Corpuscular Hemoglobin Concent 32.7 G/DL (32.0-36.0) Red Cell Distribution Width 13.7 % (11.6-14.8) Platelet Count 93 K/UL (150-450) #L Mean Platelet Volume 8.1 FL (6.5-10.1) Neutrophils (%) (Auto) % (45.0-75.0) Lymphocytes (%) (Auto) % (20.0-45.0) Monocytes (%) (Auto) % (1.0-10.0) Eosinophils (%) (Auto) % (0.0-3.0) Basophils (%) (Auto) % (0.0-2.0) Differential Total Cells Counted 100 Neutrophils % (Manual) 58 % (45-75) Lymphocytes % (Manual) 37 % (20-45) Monocytes % (Manual) 3 % (1-10) Eosinophils % (Manual) 2 % (0-3) Basophils % (Manual) 0 % (0-2) Band Neutrophils 0 % (0-8) Platelet Estimate Decreased L Platelet Morphology Normal Red Blood Cell Morphology Normal Prothrombin Time 10.6 SEC (9.30-11.50) Prothromb Time International Ratio 1.0 (0.9-1.1) Activated Partial Thromboplast Time 26 SEC (23-33) Sodium Level 136 MMOL/L (136-145) Potassium Level 4.0 MMOL/L (3.5-5.1) Chloride Level 106 MMOL/L (98-107) Carbon Dioxide Level 16 MMOL/L (21-32) L Anion Gap 14 mmol/L (5-15) Blood Urea Nitrogen 7 mg/dL (7-18) Creatinine 0.6 MG/DL (0.55-1.30) # Estimat Glomerular Filtration Rate > 60 mL/min (>60) Glucose Level 84 MG/DL (74-106) # Calcium Level 8.9 MG/DL (8.5-10.1) Phosphorus Level 1.4 MG/DL (2.5-4.9) L Total Bilirubin 0.5 MG/DL (0.2-1.0) Direct Bilirubin < 0.1 MG/DL (0.0-0.3) Aspartate Amino Transf (AST/SGOT) 125 U/L (15-37) H Alanine Aminotransferase (ALT/SGPT) 58 U/L (12-78) Alkaline Phosphatase 135 U/L (46-116) H Total Protein 7.2 G/DL (6.4-8.2) Albumin 3.2 G/DL (3.4-5.0) L Lipase 182 U/L (73-393) Plan Problems: (1) Abdominal pain Assessment & Plan: 43-year-old female with abdominal pain epigastric region likely related to pancreatitis not her ventral hernia. Ventral hernia stable incisional at this time. See below (2) Pancreatitis Assessment & Plan: Continue with medical management of acute pancreatitis. improving diet as tolerated IV fluids, intake and output management. Pain control. Trend labs. (3) Ventral hernia Assessment & Plan: Patient with history of 3 ventral incisional hernia repairs with mesh over the past 2 years. Patient seems to have recurrence on the CT scan but recurrence is minimal and fat-containing. Would not recommend any acute surgical intervention at this time. Patient will follow-up with her primary surgeon as outpatient for further evaluation. CT scans of be made available to him for review. Thank you for this consultation we will follow with recommendations Lefty Meraz Dec 30, 2018 16:04
--- NOTE | 2018-12-30 16:30 | NUR ---
NURSE NOTES: PATIENT KEPT CLEAN AND DRY. ON ROOM AIR. NO SIGNS OF DISTRESS OF THE MOMENT. WILL CONTINUE TO MONITOR.
--- NOTE | 2018-12-30 17:22 | NUR ---
CASE MANAGEMENT: INITIAL REVIEW 43 YO F PRESENTED TO ED FROM HOME CC: ABD PAIN PMHx: HTN. DM2. SI:ABD PAIN T 98.6 HR 119 RR 20 B/P 177/120 SATS 98% ON RA WBC 11.1 NA 129 CL 93 CO2 12 GLU 442 CA 10.6 AST 56 ALP 195 IS: ZOFRAN IV X1 PEPCID IV X1 NS BOLUS X1 MORPHINE IV X1 INSULIN HUMAN REGULAR 100 UNIT IV X1 K DUR PO X1 PATIENT ADMITTED TO ICU 12/29/2018 @ 0916 DCP: PATIENT TO BE DISCHARGED TO HOME ONCE MEDICALLY CLEARED. PLAN OF CARE: GI CONSULT Addendum: 12/30/18 at 1732 by Yudy White CM INTERQUAL MET
[2018-12-30] MEDS ORDERED: Morphine Sulfate 4mg/ml Inj (IV USE ONLY) IVP SCH (18:05)
--- NOTE | 2018-12-30 18:17 | Internal Med Progress Note ---
Subjective Date of Service: Dec 30, 2018 Physician Name Marshal Gilbert Attending Physician Shree Mcintyre MD Current Medications Medications (Trade) Dose Ordered Sig/Greta Route PRN Reason Start Time Stop Time Status Last Admin Dose Admin Acetaminophen (Tylenol) 650 mg Q4H PRN ORAL Fever (temp>100.5F) 12/29/18 12:15 01/28/19 12:14 Albuterol/ Ipratropium (Albuterol/ Ipratropium) 3 ml Q4H PRN HHN Shortness of Breath 12/29/18 12:15 01/03/19 12:14 Amylase/Lipase/ Protease (Zenpep) 4 ea BEFORE MEALS ORAL 12/30/18 11:30 01/29/19 11:29 12/30/18 17:14 Clonidine HCl (Catapres Tab) 0.1 mg Q4H PRN ORAL SBP > 160mmHg 12/29/18 12:45 01/28/19 12:44 Dextrose (Dextrose 50%) 25 ml Q30M PRN IV Hypoglycemia 12/30/18 13:00 01/29/19 12:59 Dextrose (Dextrose 50%) 50 ml Q30M PRN IV Hypoglycemia 12/30/18 13:00 01/29/19 12:59 Heparin Sodium (Porcine) (Heparin 5000 units/ml) 5,000 units EVERY 12 HOURS SUBQ 12/29/18 21:00 01/28/19 20:59 12/29/18 21:09 Insulin Aspart (NovoLOG) BEFORE MEALS AND HS SUBQ 12/30/18 16:30 01/29/19 16:29 12/30/18 17:22 Insulin Aspart (NovoLOG) 8 units TIAC SUBQ 12/30/18 11:30 01/29/19 11:29 12/30/18 17:21 Insulin Detemir (Levemir) 20 units BEDTIME SUBQ 12/30/18 21:00 01/29/19 20:59 Iopamidol (Isovue-300 100ml) 100 ml NOW PRN INJ Radiology Procedure 12/29/18 08:15 12/31/18 08:14 Ketorolac Tromethamine (Toradol 30mg) 30 mg Q6H PRN IV pain 5-10 12/30/18 10:00 01/04/19 09:59 Lorazepam (Ativan 2mg/ml 1ml) 2 mg Q2H PRN IV agitation 12/29/18 12:15 01/05/19 12:14 12/30/18 03:00 Morphine Sulfate (Morphine Sulfate) 4 mg ONCE IVP 12/30/18 18:05 12/30/18 19:00 Morphine Sulfate (Morphine Sulfate) 6 mg Q4H PRN IVP For Pain 7-10 12/30/18 22:00 01/06/19 21:59 Nitroglycerin (Ntg) 0.4 mg Q5M PRN SL Prn Chest Pain 12/29/18 12:15 01/28/19 12:14 Ondansetron HCl (Zofran) 4 mg Q6H PRN IVP Nausea & Vomiting 12/29/18 12:15 01/28/19 12:14 Pantoprazole (Protonix) 40 mg DAILY IVP 12/29/18 12:30 01/28/19 12:29 12/30/18 09:02 Polyethylene Glycol (Miralax) 17 gm DAILYPRN PRN ORAL Constipation 12/29/18 12:15 01/28/19 12:14 Sodium Chloride 1,000 ml @ 50 mls/hr Q20H IV 12/30/18 10:00 01/28/19 09:59 12/30/18 10:00 Sodium Phosphate 30 mm/Sodium Chloride 285 ml @ 47.5 mls/hr ONCE ONCE IV 12/30/18 12:45 12/30/18 18:44 12/30/18 12:31 Allergies: Coded Allergies: No Known Allergies (Unverified , 08/04/18) ROS Limited/Unobtainable: No Constitutional: Reports: no symptoms HEENT: Reports: no symptoms Cardiovascular: Reports: no symptoms Respiratory: Reports: no symptoms Gastrointestinal/Abdominal: Reports: no symptoms Genitourinary: Reports: no symptoms Neurologic/Psychiatric: Reports: no symptoms Subjective 43 YO F admitted with abdominal pain. Now acute pancreatitis and diabetic ketoacidosis. Cover for Int Jorge-DR Mcintyre. ICU Objective Last Vital Signs Date Time Temp Pulse Resp B/P (MAP) Pulse Ox O2 Delivery O2 Flow Rate FiO2 12/30/18 16:00 94 12/30/18 15:00 13 125/80 100 Room Air 12/30/18 12:00 97.9 12/30/18 07:08 21 Laboratory Tests Test 12/30/18 03:25 White Blood Count 5.4 K/UL (4.8-10.8) # Red Blood Count 4.10 M/UL (4.20-5.40) L Hemoglobin 13.2 G/DL (12.0-16.0) Hematocrit 40.4 % (37.0-47.0) Mean Corpuscular Volume 98 FL (80-99) Mean Corpuscular Hemoglobin 32.2 PG (27.0-31.0) H Mean Corpuscular Hemoglobin Concent 32.7 G/DL (32.0-36.0) Red Cell Distribution Width 13.7 % (11.6-14.8) Platelet Count 93 K/UL (150-450) #L Mean Platelet Volume 8.1 FL (6.5-10.1) Neutrophils (%) (Auto) % (45.0-75.0) Lymphocytes (%) (Auto) % (20.0-45.0) Monocytes (%) (Auto) % (1.0-10.0) Eosinophils (%) (Auto) % (0.0-3.0) Basophils (%) (Auto) % (0.0-2.0) Differential Total Cells Counted 100 Neutrophils % (Manual) 58 % (45-75) Lymphocytes % (Manual) 37 % (20-45) Monocytes % (Manual) 3 % (1-10) Eosinophils % (Manual) 2 % (0-3) Basophils % (Manual) 0 % (0-2) Band Neutrophils 0 % (0-8) Platelet Estimate Decreased L Platelet Morphology Normal Red Blood Cell Morphology Normal Prothrombin Time 10.6 SEC (9.30-11.50) Prothromb Time International Ratio 1.0 (0.9-1.1) Activated Partial Thromboplast Time 26 SEC (23-33) Sodium Level 136 MMOL/L (136-145) Potassium Level 4.0 MMOL/L (3.5-5.1) Chloride Level 106 MMOL/L (98-107) Carbon Dioxide Level 16 MMOL/L (21-32) L Anion Gap 14 mmol/L (5-15) Blood Urea Nitrogen 7 mg/dL (7-18) Creatinine 0.6 MG/DL (0.55-1.30) # Estimat Glomerular Filtration Rate > 60 mL/min (>60) Glucose Level 84 MG/DL (74-106) # Calcium Level 8.9 MG/DL (8.5-10.1) Phosphorus Level 1.4 MG/DL (2.5-4.9) L Total Bilirubin 0.5 MG/DL (0.2-1.0) Direct Bilirubin < 0.1 MG/DL (0.0-0.3) Aspartate Amino Transf (AST/SGOT) 125 U/L (15-37) H Alanine Aminotransferase (ALT/SGPT) 58 U/L (12-78) Alkaline Phosphatase 135 U/L (46-116) H Total Protein 7.2 G/DL (6.4-8.2) Albumin 3.2 G/DL (3.4-5.0) L Lipase 182 U/L (73-393) Microbiology Date/Time Source Procedure Growth Status 12/29/18 08:10 Urine,Clean Catch Urine Culture - Preliminary Resulted 12/29/18 11:03 Rectum Received Intake and Output 12/29/18 12/30/18 19:00 07:00 Intake Total 4924 ml 1823 ml Output Total 200 ml Balance 4924 ml 1623 ml IV Total 4924 ml 1823 ml Output Urine Total 200 ml # Voids 2 Objective PHYSICAL EXAMINATION: GENERAL: The patient is a well-developed and well-nourished female, in moderate pain distress. HEENT: Eyes, pupils are equal and responsive to light and accommodation. Extraocular movements are intact. NECK: Supple without lymphadenopathy. CHEST: Lungs are clear to auscultation bilaterally without wheezes or rales. CARDIOVASCULAR: Tachycardic, regular rhythm with S1, S2 normal without murmurs, rubs, or gallops. ABDOMEN: Soft, slightly distended with decreased bowel sounds. There is pain to palpation in the bilateral lower quadrants. There is no rebound or guarding noted. EXTREMITIES: Negative for clubbing, cyanosis, or edema. RECTAL/GENITAL: Refused. NEUROLOGIC: Cranial nerves II through XII are grossly intact without focal deficits. Motor strength is 5/5 bilaterally. Deep tendon reflexes are 2+ plantar. Assessment/Plan Assessment/Plan ASSESSMENT: This is a 43-year-old female. 1. Acute pancreatitis. 2. Diabetic ketoacidosis. 3. Umbilical hernia. 4. Ventral hernia, reducible. 5. Hypertension. 6. Diabetes type 2. 7. History of pancreatitis. TREATMENT: 1. Acute pancreatitis. A Gastroenterology consultation has been obtained with Dr. Monty Jaimes. We will follow recommendations of Gastroenterology. The patient is currently tolerating a diabetic diet 2. Diabetic ketoacidosis. D/C insulin drip; start levemir and novolog sliding scale. An intensive care consultation has been obtained with Dr. Lavelle Diggs. We will follow recommendations of Dr. Diggs. 3. Ventral hernia. The patient has had 3 ventral hernia repairs. A General Surgery consultation has been obtained with Dr. Meraz. 4. Hypertension. Continue amlodipine as above. 5. Diabetes type 2. As above, the patient has been placed on a insulin drip. Marshal Gilbert MD Dec 30, 2018 18:17
--- NOTE | 2018-12-30 18:26 | NUR ---
NURSE NOTES: DR HIGGINS MADE AWARE THAT PATIENT IS C/O ABDOMINAL PAIN AND WANTS TO INCREASE MORPHINE DOSE AND GAVE ORDER AND KEEP PT ON NPO. WILL CONTINUE TO MONITOR.
--- NOTE | 2018-12-30 18:30 | Consultation ---
DATE OF CONSULTATION: 12/30/2018 ENDOCRINOLOGY CONSULTATION CONSULTING PHYSICIAN: Joseph Saleem M.D. REFERRING PHYSICIAN: Shree Mcintyre M.D. REASON FOR CONSULTATION: Diabetes, out of control, ketoacidosis. HISTORY OF PRESENT ILLNESS: The patient is a 43-year-old female presented with chief complaint of abdominal pain. She has history of three abdominal hernia repairs in the past, last one in May of 2018. She has been experiencing enlargement of the abdominal hernia with abdominal pain, nausea, vomiting, and presented to the hospital because she was not able to tolerate p.o. liquids or solids. In the emergency room, the patient was noted to be with elevated glucose with ketoacidosis. The lipase was elevated. Endocrinology was consulted. The patient is admitted to the ICU and initiated on insulin drip. REVIEW OF SYSTEMS: As per history of present illness. PAST MEDICAL HISTORY: 1. Type 2 diabetes. 2. Hypertension. PAST SURGICAL HISTORY: Abdominal hernia repair 3 times, first one in 2015 and then another one in 2015 and the last one in 2018. MEDICATIONS: Reviewed and reconciled. For diabetes, she is taking the dose of metformin and Basaglar and regular insulin. ALLERGIES TO MEDICATIONS: None. SOCIAL HISTORY: Smokes 1 pack a day. No alcohol or drug use. PHYSICAL EXAMINATION: VITAL SIGNS: Blood pressure 170/100, pulse of 100, temperature of 98, and respiratory rate 18. HEENT: Pupils are reactive to light. Sclerae is anicteric. NECK: No JVD. HEART: Regular. ABDOMEN: Positive bowel sounds. EXTREMITIES: Positive for edema. LABORATORY VALUES: Sodium 129, potassium 4.5, chloride 92, bicarb 12, anion gap 24, BUN 10, creatinine 1.3, and glucose 442. Calcium 10.6. HCG negative. Lipase 532. DIAGNOSES: 1. Diabetic ketoacidosis, type 2 diabetes, most likely exacerbated by pancreatitis. 2. Diabetes, out of control. 3. Pancreatitis. PLAN: 1. Continue insulin drip until the anion gap closes. I will treat the patient on Basaglar and insulin regimen of Levemir and NovoLog. The note should be made that not to resume the patient's Victoza since the agent can exacerbate pancreatitis. 2. Pancreatitis. I will follow the patient closely during the hospital stay. Thank you, Dr. Mcintyre, for the courtesy of this consultation. Joseph Saleem M.D. DR: TIESHA JOB#: [id number] CC: JAZZY
--- NOTE | 2018-12-30 19:33 | NUR ---
HAND-OFF: Report given to Kelly Perry RN.
--- NOTE | 2018-12-30 19:34 | NUR ---
NURSE NOTES: Endorsement received from MINDA Chairez. Patient awake and oriented x4. On Room air, no shortness of breath. With right hand g22, left forearm G20. Receiving NS 50ml/hr. On NPO except ice chips and meds. Fall risk precautions implemented. Call light within reach, reminded patient to use call light for assistance. Bed locked, low position. Bed alarm on. Patient refused to wear yellow socks at this time. Head of bed elevated.
[2018-12-30] MEDS ORDERED: Levemir Flexpen SUBQ SCH (21:00)
--- NOTE | 2018-12-30 21:00 | NUR ---
NURSE NOTES: Heparin SC not given due to low platelet. Half dose of Levemir (10 units) given as ordered due to patient on NPO. Assisted patient with PM care.
--- NOTE | 2018-12-30 22:40 | NUR ---
NURSE NOTES: Patient reported 8/10 pain at abdomen. Assisted to reposition for comfort. PRN morphine given.
[2018-12-31] VITALS (15 sets, daily range): BP systolic 109–179; BP diastolic 61–129
--- NOTE | 2018-12-31 01:00 | NUR ---
NURSE NOTES: Patient asleep. Vital signs stable.
[2018-12-31] MEDS: Morphine Sulfate 4mg/ml Inj (IV USE ONLY) IVP PRN ×3 (02:59→11:25)
--- NOTE | 2018-12-31 03:00 | NUR ---
NURSE NOTES: Patient reported 8/10 pain at the abdomen. PRN morphine given.
--- NOTE | 2018-12-31 04:00 | NUR ---
NURSE NOTES: Patient reported feeling nauseous. Head of bed elevated. PRN Zofran given.
[2018-12-31 04:40] LABS: EOSINOPHILS % (AUTO) 1.3 % (0.0-3.0); HEMATOCRIT 37.4 % (37.0-47.0); HEMOGLOBIN 12.5 G/DL (12.0-16.0); LYMPHOCYTES % (AUTO) 26.3 % (20.0-45.0); MEAN CORPUSCULAR VOLUME 98 FL (80-99); MONOCYTES % (AUTO) 7.3 % (1.0-10.0); PLATELET COUNT 213 K/UL (150-450); RED BLOOD COUNT 3.82 M/UL (4.20-5.40); RED CELL DISTRIBUTION WIDTH 13.7 % (11.6-14.8); WHITE BLOOD COUNT 5.9 K/UL (4.8-10.8)
[2018-12-31 05:10] LABS: ALANINE AMINOTRANSFERASE 67 U/L (12-78); ALBUMIN 3.2 G/DL (3.4-5.0); ALBUMIN/GLOBULIN RATIO 0.9 (1.0-2.7); ALKALINE PHOSPHATASE 134 U/L (46-116); AMYLASE 23 U/L (25-115); ANION GAP 14 mmol/L (5-15); ASPARTATE AMINO TRANSFERASE 132 U/L (15-37); BILIRUBIN,TOTAL 0.4 MG/DL (0.2-1.0); BLOOD UREA NITROGEN 5 mg/dL (7-18); CALCIUM 8.8 MG/DL (8.5-10.1); CARBON DIOXIDE 18 MMOL/L (21-32); CHLORIDE 105 MMOL/L (98-107); CREATININE 0.7 MG/DL (0.55-1.30); PHOSPHORUS 2.9 MG/DL (2.5-4.9); POTASSIUM 3.7 MMOL/L (3.5-5.1); SODIUM 137 MMOL/L (136-145)
[2018-12-31] MEDS: LORazepam Inj 2mg/ml 1ml IV PRN (05:56)
[2018-12-31] MEDS: Pancrelipase Dr Cap ORAL SCH ×2 (05:56→11:25)
--- NOTE | 2018-12-31 06:00 | NUR ---
NURSE NOTES: Patient reported the she is hungry, reminded her that as per doctor's order ice chips and meds only. Called Dr. Diggs, left a message awaiting for return call.
[2018-12-31] MEDS: NovoLOG Insulin Flexpen SUBQ SCH ×6 (06:03→20:25)
--- NOTE | 2018-12-31 06:15 | NUR ---
NURSE NOTES: Blood sugar: 204mg/dl. Novolog 6 units SC given per sliding scale. Novolog fixed dose of 8 units held due to patient is NPO and order for this fixed dose stated give 5-10 minutes before or immediately after a meal. Confirmed with Charge nurse.
--- NOTE | 2018-12-31 07:20 | General Progress Note ---
Assessment/Plan Problem List: (1) Diabetes mellitus out of control ICD Codes: E11.65 - Type 2 diabetes mellitus with hyperglycemia SNOMED: 15233095, 847136879 (2) DKA (diabetic ketoacidoses) ICD Codes: E11.10 - Type 2 diabetes mellitus with ketoacidosis without coma SNOMED: 060887289, 56531005 Qualifiers: Qualified Codes: E11.10 - Type 2 diabetes mellitus with ketoacidosis without coma (3) Pancreatitis ICD Codes: K85.90 - Acute pancreatitis without necrosis or infection, unspecified SNOMED: 89495709, 89835678 Qualifiers: Qualified Codes: K86.1 - Other chronic pancreatitis Assessment/Plan: increase Levemir to 24 units qhs continue Novolog 8 units ac tid - hold for NPO status continue NISS ac / hs Subjective Allergies: Coded Allergies: No Known Allergies (Unverified , 08/04/18) All Systems: reviewed and negative except above Subjective events noted insulin gtt converted to sub Q regimen NPO Item Value Date Time Bedside Blood Glucose 204 mg/dl H 12/31/18 0624 Bedside Blood Glucose 197 mg/dl H 12/30/18 2100 Bedside Blood Glucose 193 mg/dl H 12/30/18 1722 Bedside Blood Glucose 103 mg/dl 12/30/18 1300 Bedside Blood Glucose 174 mg/dl H 12/30/18 1001 Bedside Blood Glucose 90 mg/dl 12/30/18 0600 Objective Last 24 Hour Vital Signs Date Time Temp Pulse Resp B/P (MAP) Pulse Ox O2 Delivery O2 Flow Rate FiO2 12/31/18 07:05 111 15 98 Room Air 21 12/31/18 06:00 111 11 158/129 100 Room Air 12/31/18 05:00 103 14 144/115 100 Room Air 12/31/18 04:00 98.1 103 14 144/115 100 Room Air 12/31/18 04:00 Room Air 12/31/18 04:00 119 12/31/18 03:30 98.0 12/31/18 03:00 102 10 158/108 98 Room Air 12/31/18 02:00 101 14 110/85 100 Room Air 12/31/18 01:00 104 15 150/89 100 Room Air 12/31/18 00:00 98.0 109 12 147/112 100 Room Air 12/31/18 00:00 104 12/31/18 00:00 Room Air 12/30/18 23:00 99 13 160/110 100 Room Air 12/30/18 22:00 95 13 147/100 100 Room Air 12/30/18 21:00 94 13 146/101 100 Room Air 12/30/18 20:21 97.8 12/30/18 20:00 97.9 102 14 100/71 100 Room Air 12/30/18 20:00 Room Air 12/30/18 19:00 102 13 123/105 100 Room Air 12/30/18 18:55 98 19 99 Room Air 21 12/30/18 18:00 100 13 153/94 100 Room Air 12/30/18 17:00 102 13 153/94 100 Room Air 12/30/18 16:00 97.8 94 13 139/96 100 Room Air 12/30/18 16:00 94 12/30/18 16:00 Room Air 12/30/18 15:00 92 13 125/80 100 Room Air 12/30/18 14:00 96 22 130/87 97 Room Air 12/30/18 13:00 102 24 123/98 97 Room Air 12/30/18 12:00 97.9 96 24 133/86 100 Room Air 12/30/18 12:00 Room Air 12/30/18 12:00 101 12/30/18 11:00 95 22 133/86 100 Room Air 12/30/18 10:00 99 12 119/70 98 Room Air 12/30/18 09:00 114 15 159/140 100 Room Air 12/30/18 08:00 101 12/30/18 08:00 Room Air 12/30/18 08:00 97.7 107 14 166/145 100 Room Air Intake and Output 12/30/18 12/31/18 19:00 07:00 Intake Total 1731.5 ml 550 ml Output Total 450 ml 400 ml Balance 1281.5 ml 150 ml Intake Oral 660 ml IV Total 1071.5 ml 550 ml Output Urine Total 450 ml 400 ml Laboratory Tests 12/31/18 03:00: White Blood Count 5.9, Red Blood Count 3.82L, Hemoglobin 12.5, Hematocrit 37.4, Mean Corpuscular Volume 98, Mean Corpuscular Hemoglobin 32.7H, Mean Corpuscular Hemoglobin Concent 33.4, Red Cell Distribution Width 13.7, Platelet Count 213#, Mean Platelet Volume 7.4, Neutrophils (%) (Auto) 64.0, Lymphocytes (%) (Auto) 26.3, Monocytes (%) (Auto) 7.3, Eosinophils (%) (Auto) 1.3, Basophils (%) (Auto ) 1.0, Erythrocyte Sedimentation Rate 46H, Sodium Level 137, Potassium Level 3.7 , Chloride Level 105, Carbon Dioxide Level 18L, Anion Gap 14, Blood Urea Nitrogen 5L, Creatinine 0.7, Estimat Glomerular Filtration Rate > 60, Glucose Level 214#H, Calcium Level 8.8, Phosphorus Level 2.9, Magnesium Level 1.5L, Total Bilirubin 0.4, Aspartate Amino Transf (AST/SGOT) 132H, Alanine Aminotransferase (ALT/SGPT) 67, Alkaline Phosphatase 134H, C-Reactive Protein, Quantitative 1.7H, Total Protein 6.7, Albumin 3.2L, Globulin 3.5, Albumin/ Globulin Ratio 0.9L, Amylase Level 23L, Lipase 177 Height (Feet): 5 Height (Inches): 2.00 Weight (Pounds): 184 General Appearance: no apparent distress Neck: normal alignment Cardiovascular: normal rate Respiratory/Chest: lungs clear Abdomen: normal bowel sounds Pelvis: normal external exam Objective Current Medications Medications (Trade) Dose Ordered Sig/Greta Route PRN Reason Start Time Stop Time Status Last Admin Dose Admin Acetaminophen (Tylenol) 650 mg Q4H PRN ORAL Fever (temp>100.5F) 12/29/18 12:15 01/28/19 12:14 Albuterol/ Ipratropium (Albuterol/ Ipratropium) 3 ml Q4H PRN HHN Shortness of Breath 12/29/18 12:15 01/03/19 12:14 Amylase/Lipase/ Protease (Zenpep) 4 ea BEFORE MEALS ORAL 12/30/18 11:30 01/29/19 11:29 12/31/18 05:56 Clonidine HCl (Catapres Tab) 0.1 mg Q4H PRN ORAL SBP > 160mmHg 12/29/18 12:45 01/28/19 12:44 Dextrose (Dextrose 50%) 25 ml Q30M PRN IV Hypoglycemia 12/30/18 13:00 01/29/19 12:59 Dextrose (Dextrose 50%) 50 ml Q30M PRN IV Hypoglycemia 12/30/18 13:00 01/29/19 12:59 Heparin Sodium (Porcine) (Heparin 5000 units/ml) 5,000 units EVERY 12 HOURS SUBQ 12/29/18 21:00 01/28/19 20:59 12/29/18 21:09 Insulin Aspart (NovoLOG) BEFORE MEALS AND HS SUBQ 12/30/18 16:30 01/29/19 16:29 12/31/18 06:03 Insulin Aspart (NovoLOG) 8 units TIAC SUBQ 12/30/18 11:30 01/29/19 11:29 12/30/18 17:21 Insulin Detemir (Levemir) 20 units BEDTIME SUBQ 12/30/18 21:00 01/29/19 20:59 12/30/18 20:54 Iopamidol (Isovue-300 100ml) 100 ml NOW PRN INJ Radiology Procedure 12/29/18 08:15 12/31/18 08:14 Ketorolac Tromethamine (Toradol 30mg) 30 mg Q6H PRN IV pain 5-10 12/30/18 10:00 01/04/19 09:59 Lorazepam (Ativan 2mg/ml 1ml) 2 mg Q2H PRN IV agitation 12/29/18 12:15 01/05/19 12:14 12/31/18 05:56 Morphine Sulfate (Morphine Sulfate) 6 mg Q4H PRN IVP For Pain 7-10 12/30/18 22:00 01/06/19 21:59 12/31/18 07:05 Nitroglycerin (Ntg) 0.4 mg Q5M PRN SL Prn Chest Pain 12/29/18 12:15 01/28/19 12:14 Ondansetron HCl (Zofran) 4 mg Q6H PRN IVP Nausea & Vomiting 12/29/18 12:15 01/28/19 12:14 12/31/18 03:45 Pantoprazole (Protonix) 40 mg DAILY IVP 12/29/18 12:30 01/28/19 12:29 12/30/18 09:02 Polyethylene Glycol (Miralax) 17 gm DAILYPRN PRN ORAL Constipation 12/29/18 12:15 01/28/19 12:14 Sodium Chloride 1,000 ml @ 50 mls/hr Q20H IV 12/30/18 10:00 01/28/19 09:59 12/31/18 05:57 Joseph Saleem MD Dec 31, 2018 07:20
--- NOTE | 2018-12-31 07:30 | NUR ---
NURSE NOTES: Patient received from MINDA Perales. patient is awake and alert but is agitated and asking for pain medication, patient is currently NPO with IV fluids of NS at 50ml/hr, will call Dr. Gilbert for orders ad patient threatening to leave AMA. awaiting for call back.
--- NOTE | 2018-12-31 07:32 | NUR ---
HAND-OFF: Report given to MINDA Kim.
[2018-12-31] MEDS: Heparin 5000 units/ml inj SUBQ SCH (09:00)
--- NOTE | 2018-12-31 09:20 | NUR ---
NURSE NOTES: Dr. Gilbert ordered to have patient to be placed on clear liquid diet with consistent carb diet,
[2018-12-31] MEDS: Pantoprazole Inj IVP SCH (09:52)
--- NOTE | 2018-12-31 09:53 | General Progress Note ---
Assessment/Plan Problem List: (1) Chronic calcific pancreatitis ICD Codes: K86.1 - Other chronic pancreatitis SNOMED: 543462068 (2) History of diabetes mellitus ICD Codes: Z86.39 - Personal history of other endocrine, nutritional and metabolic disease SNOMED: 218029571 (3) Diabetes mellitus out of control ICD Codes: E11.65 - Type 2 diabetes mellitus with hyperglycemia SNOMED: 06480285, 036909460 (4) Ventral hernia ICD Codes: K43.9 - Ventral hernia without obstruction or gangrene SNOMED: 450805889 (5) Abdominal pain ICD Codes: R10.9 - Unspecified abdominal pain SNOMED: 80074692 Qualifiers: Qualified Codes: R10.84 - Generalized abdominal pain (6) DKA (diabetic ketoacidoses) ICD Codes: E11.10 - Type 2 diabetes mellitus with ketoacidosis without coma SNOMED: 703564516, 18262052 Qualifiers: Qualified Codes: E11.10 - Type 2 diabetes mellitus with ketoacidosis without coma Assessment/Plan: on clear liquid diet on creon normal lipase now advance diet to full liquid DM control Subjective ROS Limited/Unobtainable: Yes Allergies: Coded Allergies: No Known Allergies (Unverified , 08/04/18) Objective Last 24 Hour Vital Signs Date Time Temp Pulse Resp B/P (MAP) Pulse Ox O2 Delivery O2 Flow Rate FiO2 12/31/18 07:05 111 15 98 Room Air 21 12/31/18 06:00 111 11 158/129 100 Room Air 12/31/18 05:00 103 14 144/115 100 Room Air 12/31/18 04:00 98.1 103 14 144/115 100 Room Air 12/31/18 04:00 Room Air 12/31/18 04:00 119 12/31/18 03:30 98.0 12/31/18 03:00 102 10 158/108 98 Room Air 12/31/18 02:00 101 14 110/85 100 Room Air 12/31/18 01:00 104 15 150/89 100 Room Air 12/31/18 00:00 98.0 109 12 147/112 100 Room Air 12/31/18 00:00 104 12/31/18 00:00 Room Air 12/30/18 23:00 99 13 160/110 100 Room Air 12/30/18 22:00 95 13 147/100 100 Room Air 12/30/18 21:00 94 13 146/101 100 Room Air 12/30/18 20:21 97.8 12/30/18 20:00 97.9 102 14 100/71 100 Room Air 12/30/18 20:00 Room Air 12/30/18 19:00 102 13 123/105 100 Room Air 12/30/18 18:55 98 19 99 Room Air 21 12/30/18 18:00 100 13 153/94 100 Room Air 12/30/18 17:00 102 13 153/94 100 Room Air 12/30/18 16:00 97.8 94 13 139/96 100 Room Air 12/30/18 16:00 94 12/30/18 16:00 Room Air 12/30/18 15:00 92 13 125/80 100 Room Air 12/30/18 14:00 96 22 130/87 97 Room Air 12/30/18 13:00 102 24 123/98 97 Room Air 12/30/18 12:00 97.9 96 24 133/86 100 Room Air 12/30/18 12:00 Room Air 12/30/18 12:00 101 12/30/18 11:00 95 22 133/86 100 Room Air 12/30/18 10:00 99 12 119/70 98 Room Air Intake and Output 12/30/18 12/31/18 18:59 06:59 Intake Total 1832.5 ml 600 ml Output Total 250 ml 600 ml Balance 1582.5 ml 0 ml Intake Oral 660 ml IV Total 1172.5 ml 600 ml Output Urine Total 250 ml 600 ml Laboratory Tests 12/31/18 03:00: White Blood Count 5.9, Red Blood Count 3.82L, Hemoglobin 12.5, Hematocrit 37.4, Mean Corpuscular Volume 98, Mean Corpuscular Hemoglobin 32.7H, Mean Corpuscular Hemoglobin Concent 33.4, Red Cell Distribution Width 13.7, Platelet Count 213#, Mean Platelet Volume 7.4, Neutrophils (%) (Auto) 64.0, Lymphocytes (%) (Auto) 26.3, Monocytes (%) (Auto) 7.3, Eosinophils (%) (Auto) 1.3, Basophils (%) (Auto ) 1.0, Erythrocyte Sedimentation Rate 46H, Sodium Level 137, Potassium Level 3.7 , Chloride Level 105, Carbon Dioxide Level 18L, Anion Gap 14, Blood Urea Nitrogen 5L, Creatinine 0.7, Estimat Glomerular Filtration Rate > 60, Glucose Level 214#H, Calcium Level 8.8, Phosphorus Level 2.9, Magnesium Level 1.5L, Total Bilirubin 0.4, Aspartate Amino Transf (AST/SGOT) 132H, Alanine Aminotransferase (ALT/SGPT) 67, Alkaline Phosphatase 134H, C-Reactive Protein, Quantitative 1.7H, Total Protein 6.7, Albumin 3.2L, Globulin 3.5, Albumin/ Globulin Ratio 0.9L, Amylase Level 23L, Lipase 177 Height (Feet): 5 Height (Inches): 2.00 Weight (Pounds): 184 General Appearance: alert EENT: normal ENT inspection Neck: supple Cardiovascular: normal rate Respiratory/Chest: decreased breath sounds Abdomen: soft, hypoactive bowel sounds, tender Extremities: non-tender Monty Jaimes MD Dec 31, 2018 09:53
--- NOTE | 2018-12-31 10:10 | Pulmonolgy Critical Care Note ---
Critical Care - Asmt/Plan Problems: (1) DKA (diabetic ketoacidoses) (2) Pancreatitis (3) Abdominal pain Respiratory: monitor respiratory rate, adjust FIO2, CXR Cardiac: continue to monitor HR/BP Renal: F/U I&O, check electrolytes Infectious Disease: check cultures Gastrointestinal: hold feedings Endocrine: monitor blood sugar Hematologic: monitor H/H Neurologic: PRN Morphine Time Spent (Minutes): 40 Notes Reviewed: analytical lead, renal Discussed with: nurses, consultants, registered nurse hh case managerunderwriting operations manager - Objective Last 24 Hour Vital Signs Date Time Temp Pulse Resp B/P (MAP) Pulse Ox O2 Delivery O2 Flow Rate FiO2 12/31/18 07:05 111 15 98 Room Air 21 12/31/18 06:00 111 11 158/129 100 Room Air 12/31/18 05:00 103 14 144/115 100 Room Air 12/31/18 04:00 98.1 103 14 144/115 100 Room Air 12/31/18 04:00 Room Air 12/31/18 04:00 119 12/31/18 03:30 98.0 12/31/18 03:00 102 10 158/108 98 Room Air 12/31/18 02:00 101 14 110/85 100 Room Air 12/31/18 01:00 104 15 150/89 100 Room Air 12/31/18 00:00 98.0 109 12 147/112 100 Room Air 12/31/18 00:00 104 12/31/18 00:00 Room Air 12/30/18 23:00 99 13 160/110 100 Room Air 12/30/18 22:00 95 13 147/100 100 Room Air 12/30/18 21:00 94 13 146/101 100 Room Air 12/30/18 20:21 97.8 12/30/18 20:00 97.9 102 14 100/71 100 Room Air 12/30/18 20:00 Room Air 12/30/18 19:00 102 13 123/105 100 Room Air 12/30/18 18:55 98 19 99 Room Air 12/30/18 18:00 100 13 153/94 100 Room Air 12/30/18 17:00 102 13 153/94 100 Room Air 12/30/18 16:00 97.8 94 13 139/96 100 Room Air 12/30/18 16:00 94 12/30/18 16:00 Room Air 12/30/18 15:00 92 13 125/80 100 Room Air 12/30/18 14:00 96 22 130/87 97 Room Air 12/30/18 13:00 102 24 123/98 97 Room Air 12/30/18 12:00 97.9 96 24 133/86 100 Room Air 12/30/18 12:00 Room Air 12/30/18 12:00 101 12/30/18 11:00 95 22 133/86 100 Room Air Status: awake Condition: improving HEENT: atraumatic Neck: full ROM Lungs: clear Heart: HR/BP stable Abdomen: soft, active bowel sounds Extremities: no C/C/E Decubiti: location Micro: Microbiology Date/Time Source Procedure Growth Status 12/29/18 08:10 Urine,Clean Catch Urine Culture - Preliminary Staphylococcus Aureus Resulted 12/29/18 11:03 Rectum VRE Culture - Final Enterococcus Faecalis - Vre Complete 12/29/18 11:03 Rectum - Final NO CARBAPENEM-RESISTANT ENTEROBACTERI... Complete Accucheck: 204 Critical Care - Subjective ROS Limited/Unobtainable: Yes Condition: critical EKG Rhythm: Sinus Rhythm FI02: 21 Sputum Amount: None I&O: Intake and Output 12/30/18 12/31/18 18:59 06:59 Intake Total 1832.5 ml 600 ml Output Total 250 ml 600 ml Balance 1582.5 ml 0 ml Intake Oral 660 ml IV Total 1172.5 ml 600 ml Output Urine Total 250 ml 600 ml Labs: Laboratory Tests Test 12/31/18 03:00 White Blood Count 5.9 K/UL (4.8-10.8) Red Blood Count 3.82 M/UL (4.20-5.40) L Hemoglobin 12.5 G/DL (12.0-16.0) Hematocrit 37.4 % (37.0-47.0) Mean Corpuscular Volume 98 FL (80-99) Mean Corpuscular Hemoglobin 32.7 PG (27.0-31.0) H Mean Corpuscular Hemoglobin Concent 33.4 G/DL (32.0-36.0) Red Cell Distribution Width 13.7 % (11.6-14.8) Platelet Count 213 K/UL (150-450) # Mean Platelet Volume 7.4 FL (6.5-10.1) Neutrophils (%) (Auto) 64.0 % (45.0-75.0) Lymphocytes (%) (Auto) 26.3 % (20.0-45.0) Monocytes (%) (Auto) 7.3 % (1.0-10.0) Eosinophils (%) (Auto) 1.3 % (0.0-3.0) Basophils (%) (Auto) 1.0 % (0.0-2.0) Erythrocyte Sedimentation Rate 46 MM/HR (0-20) H Sodium Level 137 MMOL/L (136-145) Potassium Level 3.7 MMOL/L (3.5-5.1) Chloride Level 105 MMOL/L (98-107) Carbon Dioxide Level 18 MMOL/L (21-32) L Anion Gap 14 mmol/L (5-15) Blood Urea Nitrogen 5 mg/dL (7-18) L Creatinine 0.7 MG/DL (0.55-1.30) Estimat Glomerular Filtration Rate > 60 mL/min (>60) Glucose Level 214 MG/DL (74-106) #H Calcium Level 8.8 MG/DL (8.5-10.1) Phosphorus Level 2.9 MG/DL (2.5-4.9) Magnesium Level 1.5 MG/DL (1.8-2.4) L Total Bilirubin 0.4 MG/DL (0.2-1.0) Aspartate Amino Transf (AST/SGOT) 132 U/L (15-37) H Alanine Aminotransferase (ALT/SGPT) 67 U/L (12-78) Alkaline Phosphatase 134 U/L (46-116) H C-Reactive Protein, Quantitative 1.7 mg/dL (0.00-0.90) H Total Protein 6.7 G/DL (6.4-8.2) Albumin 3.2 G/DL (3.4-5.0) L Globulin 3.5 g/dL Albumin/Globulin Ratio 0.9 (1.0-2.7) L Amylase Level 23 U/L (25-115) L Lipase 177 U/L (73-393) Lavelle Diggs MD Dec 31, 2018 10:10
--- NOTE | 2018-12-31 10:19 | NUR ---
*-* INSURANCE *-* ALL CLINICALS AND REVIEWS HAVE BEEN FAXED TO: [employer] ([employer]) Tracking#[id number] - Nurses Educator: Caren Valencia#[phone] ext. [phone]
--- NOTE | 2018-12-31 10:30 | NUR ---
NURSE NOTES: Dr. Diggs made aware of 1.5 magnesium, assessed patient at this bedside he ordered to have patient be given 2g of magnesium IVPB, no further orders given at this time.
--- NOTE | 2018-12-31 11:23 | NUR ---
ALARM SERVICE TECHNICIANSUPERVISOR FUNCTIONAL TESTING SI: ABDOMINAL PAIN T. 98.1 HR 119 RR 14 B/P 144/115 ESR 46 AST 132 ALK PHOS 134 IS: IVF NS @ 50ML/HR MAGNESIUM IV PROTONIX IV INSULIN SUBC HEPARIN SUBC ALB HHN TELE STATUS
--- NOTE | 2018-12-31 12:45 | NUR ---
NURSE NOTES: Dr. Smith called to recommend to change diet to ccho medium instead of full liquid diet, order given to have patient diet order changed to ccho medium, patient remains on ns at 50ml/hr. will continue to monitor.
--- NOTE | 2018-12-31 14:23 | NUR ---
EQUINE SCIENCE INSTRUCTOR NOTES RECEIVED MICHELLE FROM [facility] FROM [facility]. PLEASE FAX ALL DC NEEDS TO [phone].
--- NOTE | 2018-12-31 14:33 | Surgery Progress Note ---
Surgery Progress Note Subjective Additional Comments no acute events downgraded from ICU stable labs improved Objective Last 24 Hour Vital Signs Date Time Temp Pulse Resp B/P (MAP) Pulse Ox O2 Delivery O2 Flow Rate FiO2 12/31/18 12:00 98.1 110 16 139/77 100 Room Air 12/31/18 12:00 98 12/31/18 12:00 Room Air 12/31/18 11:32 106 151/109 12/31/18 11:00 109 15 151/109 100 Room Air 12/31/18 10:00 108 16 179/124 100 Room Air 12/31/18 09:00 118 17 165/90 100 Room Air 12/31/18 08:00 116 12/31/18 08:00 Room Air 12/31/18 08:00 98.5 120 16 145/104 100 Room Air 12/31/18 07:05 111 15 98 Room Air 12/31/18 07:00 125 19 150/125 100 Room Air 12/31/18 06:00 111 11 158/129 100 Room Air 12/31/18 05:00 103 14 144/115 100 Room Air 12/31/18 04:00 98.1 103 14 144/115 100 Room Air 12/31/18 04:00 Room Air 12/31/18 04:00 119 12/31/18 03:30 98.0 12/31/18 03:00 102 10 158/108 98 Room Air 12/31/18 02:00 101 14 110/85 100 Room Air 12/31/18 01:00 104 15 150/89 100 Room Air 12/31/18 00:00 98.0 109 12 147/112 100 Room Air 12/31/18 00:00 104 12/31/18 00:00 Room Air 12/30/18 23:00 99 13 160/110 100 Room Air 12/30/18 22:00 95 13 147/100 100 Room Air 12/30/18 21:00 94 13 146/101 100 Room Air 12/30/18 20:21 97.8 12/30/18 20:00 97.9 102 14 100/71 100 Room Air 12/30/18 20:00 Room Air 12/30/18 19:00 102 13 123/105 100 Room Air 12/30/18 18:55 98 19 99 Room Air 12/30/18 18:00 100 13 153/94 100 Room Air 12/30/18 17:00 102 13 153/94 100 Room Air 12/30/18 16:00 97.8 94 13 139/96 100 Room Air 12/30/18 16:00 94 12/30/18 16:00 Room Air 12/30/18 15:00 92 13 125/80 100 Room Air I&O Intake and Output 12/30/18 12/31/18 18:59 06:59 Intake Total 1832.5 ml 600 ml Output Total 250 ml 600 ml Balance 1582.5 ml 0 ml Intake Oral 660 ml IV Total 1172.5 ml 600 ml Output Urine Total 250 ml 600 ml Cardiovascular: RSR Respiratory: clear Abdomen: soft, flat, non-tender, present bowel sounds, non-distended Extremities: no tenderness, no cyanosis Laboratory Tests Test 12/31/18 03:00 White Blood Count 5.9 K/UL (4.8-10.8) Red Blood Count 3.82 M/UL (4.20-5.40) L Hemoglobin 12.5 G/DL (12.0-16.0) Hematocrit 37.4 % (37.0-47.0) Mean Corpuscular Volume 98 FL (80-99) Mean Corpuscular Hemoglobin 32.7 PG (27.0-31.0) H Mean Corpuscular Hemoglobin Concent 33.4 G/DL (32.0-36.0) Red Cell Distribution Width 13.7 % (11.6-14.8) Platelet Count 213 K/UL (150-450) # Mean Platelet Volume 7.4 FL (6.5-10.1) Neutrophils (%) (Auto) 64.0 % (45.0-75.0) Lymphocytes (%) (Auto) 26.3 % (20.0-45.0) Monocytes (%) (Auto) 7.3 % (1.0-10.0) Eosinophils (%) (Auto) 1.3 % (0.0-3.0) Basophils (%) (Auto) 1.0 % (0.0-2.0) Erythrocyte Sedimentation Rate 46 MM/HR (0-20) H Sodium Level 137 MMOL/L (136-145) Potassium Level 3.7 MMOL/L (3.5-5.1) Chloride Level 105 MMOL/L (98-107) Carbon Dioxide Level 18 MMOL/L (21-32) L Anion Gap 14 mmol/L (5-15) Blood Urea Nitrogen 5 mg/dL (7-18) L Creatinine 0.7 MG/DL (0.55-1.30) Estimat Glomerular Filtration Rate > 60 mL/min (>60) Glucose Level 214 MG/DL (74-106) #H Calcium Level 8.8 MG/DL (8.5-10.1) Phosphorus Level 2.9 MG/DL (2.5-4.9) Magnesium Level 1.5 MG/DL (1.8-2.4) L Total Bilirubin 0.4 MG/DL (0.2-1.0) Aspartate Amino Transf (AST/SGOT) 132 U/L (15-37) H Alanine Aminotransferase (ALT/SGPT) 67 U/L (12-78) Alkaline Phosphatase 134 U/L (46-116) H C-Reactive Protein, Quantitative 1.7 mg/dL (0.00-0.90) H Total Protein 6.7 G/DL (6.4-8.2) Albumin 3.2 G/DL (3.4-5.0) L Globulin 3.5 g/dL Albumin/Globulin Ratio 0.9 (1.0-2.7) L Amylase Level 23 U/L (25-115) L Lipase 177 U/L (73-393) Plan Problems: (1) Abdominal pain Assessment & Plan: 43-year-old female with abdominal pain epigastric region likely related to pancreatitis not her ventral hernia. Ventral hernia stable incisional at this time. See below (2) Pancreatitis Assessment & Plan: Continue with medical management of acute pancreatitis. improving diet as tolerated IV fluids, intake and output management. Pain control. Trend labs. (3) Ventral hernia Assessment & Plan: Patient with history of 3 ventral incisional hernia repairs with mesh over the past 2 years. Patient seems to have recurrence on the CT scan but recurrence is minimal and fat-containing. Would not recommend any acute surgical intervention at this time. Patient will follow-up with her primary surgeon as outpatient for further evaluation. CT scans of be made available to him for review. Thank you for this consultation we will follow with recommendations Lefty Meraz Dec 31, 2018 14:33
[2018-12-31] MEDS ORDERED: Nitroglycerin Subl 0.4mg tab SL PRN ×2 (14:35→21:30)
--- NOTE | 2018-12-31 14:45 | NUR ---
NURSE NOTES: Patient transferred to [facility] per Dr. Diggs order, patient is awake and alert to name, time, place, and situation, no pain expresses at this time, patient is on consistent carb medium diet,
--- NOTE | 2018-12-31 15:25 | Internal Med Progress Note ---
Subjective Physician Name Shree Mcintyre Attending Physician Shere Mcintyre MD Current Medications Medications (Trade) Dose Ordered Sig/Greta Route PRN Reason Start Time Stop Time Status Last Admin Dose Admin Acetaminophen (Tylenol) 650 mg Q4H PRN ORAL Fever (temp>100.5F) 12/31/18 16:15 01/28/19 12:14 Albuterol/ Ipratropium (Albuterol/ Ipratropium) 3 ml Q4H PRN HHN Shortness of Breath 12/31/18 16:15 01/03/19 12:14 Amlodipine Besylate (Norvasc) 5 mg DAILY ORAL 01/01/19 09:00 01/30/19 10:14 Amylase/Lipase/ Protease (Zenpep) 4 ea BEFORE MEALS ORAL 12/31/18 16:30 01/29/19 11:29 Clonidine HCl (Catapres Tab) 0.1 mg Q4H PRN ORAL SBP > 160mmHg 12/31/18 16:45 01/28/19 12:44 Dextrose (Dextrose 50%) 25 ml Q30M PRN IV Hypoglycemia 12/31/18 15:00 01/29/19 12:59 Dextrose (Dextrose 50%) 50 ml Q30M PRN IV Hypoglycemia 12/31/18 15:00 01/29/19 12:59 Heparin Sodium (Porcine) (Heparin 5000 units/ml) 5,000 units EVERY 12 HOURS SUBQ 12/31/18 21:00 01/28/19 20:59 Insulin Aspart (NovoLOG) BEFORE MEALS AND HS SUBQ 12/31/18 16:30 01/29/19 16:29 Insulin Aspart (NovoLOG) 8 units TIAC SUBQ 12/31/18 16:30 01/29/19 11:29 Insulin Detemir (Levemir) 24 units BEDTIME SUBQ 12/31/18 21:00 01/29/19 20:59 Ketorolac Tromethamine (Toradol 30mg) 30 mg Q6H PRN IV pain 5-10 12/31/18 16:00 01/04/19 09:59 Lorazepam (Ativan 2mg/ml 1ml) 2 mg Q2H PRN IV agitation 12/31/18 16:15 01/05/19 12:14 Morphine Sulfate (Morphine Sulfate) 6 mg Q4H PRN IVP For Pain 7-10 12/31/18 18:00 01/06/19 21:59 Nitroglycerin (Ntg) 0.4 mg Q5M PRN SL Prn Chest Pain 12/31/18 14:35 01/28/19 12:14 Ondansetron HCl (Zofran) 4 mg Q6H PRN IVP Nausea & Vomiting 12/31/18 18:15 01/28/19 12:14 Pantoprazole (Protonix) 40 mg DAILY IVP 01/01/19 09:00 01/28/19 12:29 Polyethylene Glycol (Miralax) 17 gm DAILYPRN PRN ORAL Constipation 01/01/19 12:15 01/28/19 12:14 Allergies: Coded Allergies: No Known Allergies (Unverified , 08/04/18) Subjective awake, alert, responsive, NAD, No CP or SOB. Objective Last Vital Signs Date Time Temp Pulse Resp B/P (MAP) Pulse Ox O2 Delivery O2 Flow Rate FiO2 12/31/18 12:00 98.1 110 16 139/77 100 Room Air 12/31/18 07:05 21 Laboratory Tests Test 12/31/18 03:00 White Blood Count 5.9 K/UL (4.8-10.8) Red Blood Count 3.82 M/UL (4.20-5.40) L Hemoglobin 12.5 G/DL (12.0-16.0) Hematocrit 37.4 % (37.0-47.0) Mean Corpuscular Volume 98 FL (80-99) Mean Corpuscular Hemoglobin 32.7 PG (27.0-31.0) H Mean Corpuscular Hemoglobin Concent 33.4 G/DL (32.0-36.0) Red Cell Distribution Width 13.7 % (11.6-14.8) Platelet Count 213 K/UL (150-450) # Mean Platelet Volume 7.4 FL (6.5-10.1) Neutrophils (%) (Auto) 64.0 % (45.0-75.0) Lymphocytes (%) (Auto) 26.3 % (20.0-45.0) Monocytes (%) (Auto) 7.3 % (1.0-10.0) Eosinophils (%) (Auto) 1.3 % (0.0-3.0) Basophils (%) (Auto) 1.0 % (0.0-2.0) Erythrocyte Sedimentation Rate 46 MM/HR (0-20) H Sodium Level 137 MMOL/L (136-145) Potassium Level 3.7 MMOL/L (3.5-5.1) Chloride Level 105 MMOL/L (98-107) Carbon Dioxide Level 18 MMOL/L (21-32) L Anion Gap 14 mmol/L (5-15) Blood Urea Nitrogen 5 mg/dL (7-18) L Creatinine 0.7 MG/DL (0.55-1.30) Estimat Glomerular Filtration Rate > 60 mL/min (>60) Glucose Level 214 MG/DL (74-106) #H Calcium Level 8.8 MG/DL (8.5-10.1) Phosphorus Level 2.9 MG/DL (2.5-4.9) Magnesium Level 1.5 MG/DL (1.8-2.4) L Total Bilirubin 0.4 MG/DL (0.2-1.0) Aspartate Amino Transf (AST/SGOT) 132 U/L (15-37) H Alanine Aminotransferase (ALT/SGPT) 67 U/L (12-78) Alkaline Phosphatase 134 U/L (46-116) H C-Reactive Protein, Quantitative 1.7 mg/dL (0.00-0.90) H Total Protein 6.7 G/DL (6.4-8.2) Albumin 3.2 G/DL (3.4-5.0) L Globulin 3.5 g/dL Albumin/Globulin Ratio 0.9 (1.0-2.7) L Amylase Level 23 U/L (25-115) L Lipase 177 U/L (73-393) Microbiology Date/Time Source Procedure Growth Status 12/29/18 11:03 Nasal Nares MRSA Culture - Final Staphylococcus Aureus - Mrsa Complete 12/29/18 08:10 Urine,Clean Catch Urine Culture - Preliminary Staphylococcus Aureus Resulted 12/29/18 11:03 Rectum VRE Culture - Final Enterococcus Faecalis - Vre Complete 12/29/18 11:03 Rectum - Final NO CARBAPENEM-RESISTANT ENTEROBACTERI... Complete Intake and Output 12/30/18 12/31/18 18:59 06:59 Intake Total 1832.5 ml 600 ml Output Total 250 ml 600 ml Balance 1582.5 ml 0 ml Intake Oral 660 ml IV Total 1172.5 ml 600 ml Output Urine Total 250 ml 600 ml Objective General: No acute distress, awake and alert HEENT: NCAT, sclera anicteric, PERRL, EOMI. Neck: Supple, no significant jugular venous distention, Lungs: Good inspiratory effort, no accessory muscle use, clear to auscultation bilaterally, no Wheeze or Rales. Heart: Regular rate and rhythm, normal S1/S2, no murmurs. Abdomen: soft, nontender, nondistended. Normoactive bowel sounds, morbid obesity , venatical hernia, / Rectal: Refused and deferred. Extremities: No Cyanosis , clubbing or edema. Neuro: A&O x 3, Able to move all extremities Skin: warm, no rashes or lesions Psych: Normal mood and affect Assessment/Plan Assessment/Plan 1. Acute pancreatitis. 2. Diabetic ketoacidosis. 3. Umbilical hernia. 4. Ventral hernia, reducible. 5. Hypertension. 6. Diabetes type 2. 7. History of pancreatitis. Plan: DC Telemetry Ambulation monitor Labs and blood glucose closely DC home in 1 or 2 days. Mg IV Shree Mcintyre MD Dec 31, 2018 15:25
[2018-12-31] MEDS ORDERED: Ketorolac 30mg Inj IV PRN ×2 (16:00→22:00)
[2018-12-31] MEDS ORDERED: LORazepam Inj 2mg/ml 1ml IV PRN ×2 (16:15→22:15)
[2018-12-31] MEDS ORDERED: Albuterol/Ipratropium 3ml neb HHN PRN (16:15)
[2018-12-31] MEDS ORDERED: NovoLOG Insulin Flexpen SUBQ SCH (16:30)
[2018-12-31] MEDS ORDERED: Pancrelipase Dr Cap ORAL SCH (16:30)
--- NOTE | 2018-12-31 16:40 | NUR ---
NURSE NOTES: pt ok to transfer to [facility], she doesn't need a media monitor. Addendum: 12/31/18 at 1943 by Rupal Neves RN NURSE NOTES: pt ok to transfer to [facility] per doctor Mcintyre, pt doesn't need a media monitor.
[2018-12-31] MEDS ORDERED: Morphine Sulfate 4mg/ml Inj (IV USE ONLY) IVP PRN (18:00)
--- NOTE | 2018-12-31 19:25 | NUR ---
NURSE NOTES: Received report from Rupal PERLA, pt. in bed awake, pt. is A/o x's4- able to make needs known, no signs or symptoms of acute cardiac or respiratory distress noted, bed in lowest position and call light within easy reach, bed alarm on, side rails up x's3 and safety brakes engaged, pt. appears to be sating well on room air- no distress noted, pt. appears to be resting comfortably, RT. hand 22G SL IV intact and patent, LFA 20G - IV intact and patent. safety measures continued. will continue with plan of care.
--- NOTE | 2018-12-31 19:37 | NUR ---
HAND-OFF: Report given to Tomeo/rn. pt may be transfered to [facility] if room becomes available.
[2018-12-31] MEDS ORDERED: Levemir Flexpen SUBQ SCH ×2 (21:00)
[2018-12-31] MEDS ORDERED: Heparin 5000 units/ml inj SUBQ SCH (21:00)
--- NOTE | 2018-12-31 22:13 | NUR ---
HAND-OFF: Report given to tessie PERLA, pt. remains stable and no signs of distress noted.
[2019-01-01] VITALS: BP 124/79
[2019-01-01] MEDS: Morphine Sulfate 4mg/ml Inj (IV USE ONLY) IVP PRN ×2 (00:11→04:27)
[2019-01-01] MEDS ORDERED: Albuterol/Ipratropium 3ml neb HHN PRN (00:15)
[2019-01-01 04:00] VITALS: BP 150/97
--- NOTE | 2019-01-01 06:17 | NUR ---
NURSE NOTES: MONITORED BLOOD GLUCOSE VIA GLUCOMETER WITH RESULT 343MG/DL,ASSESSED FOR SIGNS AND SYMPTOMS OF HYPERGLYCEMIA, NONE NOTED, ADM. 10 UNITS NOVOLOG INSULIN SUBCUT, TOLERATED WELL, NO ADVERSE REACTION NOTED AFTER 15 MINUTES.
[2019-01-01] MEDS ORDERED: Pancrelipase Dr Cap ORAL SCH (06:30)
[2019-01-01] MEDS ORDERED: NovoLOG Insulin Flexpen SUBQ SCH ×3 (06:30→11:30)
[2019-01-01 06:45] LABS: BASOPHILS % (AUTO) 0.5 % (0.0-2.0); EOSINOPHILS % (AUTO) 1.1 % (0.0-3.0); HEMATOCRIT 35.4 % (37.0-47.0); HEMOGLOBIN 11.7 G/DL (12.0-16.0); LYMPHOCYTES % (AUTO) 22.1 % (20.0-45.0); MEAN CORPUSCULAR VOLUME 98 FL (80-99); MONOCYTES % (AUTO) 8.7 % (1.0-10.0); NEUTROPHILS % (AUTO) 67.6 % (45.0-75.0); PLATELET COUNT 209 K/UL (150-450); RED BLOOD COUNT 3.62 M/UL (4.20-5.40); RED CELL DISTRIBUTION WIDTH 13.9 % (11.6-14.8); WHITE BLOOD COUNT 5.4 K/UL (4.8-10.8)
[2019-01-01 06:58] LABS: ALANINE AMINOTRANSFERASE 50 U/L (12-78); ALBUMIN 3.1 G/DL (3.4-5.0); ALBUMIN/GLOBULIN RATIO 0.9 (1.0-2.7); ALKALINE PHOSPHATASE 130 U/L (46-116); AMYLASE 25 U/L (25-115); ANION GAP 11 mmol/L (5-15); ASPARTATE AMINO TRANSFERASE 54 U/L (15-37); BILIRUBIN,TOTAL 0.2 MG/DL (0.2-1.0); BLOOD UREA NITROGEN 6 mg/dL (7-18); CALCIUM 8.7 MG/DL (8.5-10.1); CARBON DIOXIDE 21 MMOL/L (21-32); CHLORIDE 106 MMOL/L (98-107); CREATININE 0.8 MG/DL (0.55-1.30); POTASSIUM 3.6 MMOL/L (3.5-5.1); SODIUM 138 MMOL/L (136-145)
--- NOTE | 2019-01-01 07:16 | Pulmonology Progress Note ---
Assessment/Plan Problems: (1) DKA (diabetic ketoacidoses) (2) Abdominal pain (3) Chronic calcific pancreatitis (4) History of diabetes mellitus (5) Ventral hernia Assessment/Plan BS better pain better tolerating oral diet Subjective ROS Limited/Unobtainable: No Constitutional: Reports: no symptoms HEENT: Repors: no symptoms Allergies: Coded Allergies: No Known Allergies (Unverified , 08/04/18) Objective Last 24 Hour Vital Signs Date Time Temp Pulse Resp B/P (MAP) Pulse Ox O2 Delivery O2 Flow Rate FiO2 01/01/19 04:57 97.4 01/01/19 04:00 97.4 104 18 150/97 98 Room Air 01/01/19 00:00 97.9 97 18 124/79 99 Room Air 12/31/18 20:57 94 Nasal Cannula 2.0 28 12/31/18 20:00 97.3 102 20 130/87 100 Room Air 12/31/18 20:00 118 12/31/18 19:30 109 18 99 Room Air 21 12/31/18 16:00 110 12/31/18 16:00 98.1 98 18 109/61 98 Room Air 12/31/18 12:00 98.1 110 16 139/77 100 Room Air 12/31/18 12:00 98 12/31/18 12:00 Room Air 12/31/18 11:32 106 151/109 12/31/18 11:00 109 15 151/109 100 Room Air 12/31/18 10:00 108 16 179/124 100 Room Air 12/31/18 09:00 118 17 165/90 100 Room Air 12/31/18 08:00 116 12/31/18 08:00 Room Air 12/31/18 08:00 98.5 120 16 145/104 100 Room Air Intake and Output 12/31/18 01/01/19 19:00 07:00 Intake Total 1790 ml 480 ml Balance 1790 ml 480 ml Intake Oral 1140 ml 480 ml IV Total 650 ml # Voids 2 4 # Bowel Movements 1 General Appearance: WD/WN HEENT: normocephalic, atraumatic Respiratory/Chest: chest wall non-tender, normal breath sounds Breasts: no masses Cardiovascular: normal peripheral pulses Abdomen: normal bowel sounds, soft, non tender Genitourinary: normal external genitalia Skin: no rash Microbiology Date/Time Source Procedure Growth Status 12/29/18 11:03 Nasal Nares MRSA Culture - Final Staphylococcus Aureus - Mrsa Complete 12/29/18 08:10 Urine,Clean Catch Urine Culture - Final Staphylococcus Aureus Complete 12/29/18 11:03 Rectum VRE Culture - Final Enterococcus Faecalis - Vre Complete 12/29/18 11:03 Rectum - Final NO CARBAPENEM-RESISTANT ENTEROBACTERI... Complete Laboratory Tests 01/01/19 06:00: White Blood Count 5.4, Red Blood Count 3.62L, Hemoglobin 11.7L, Hematocrit 35.4L , Mean Corpuscular Volume 98, Mean Corpuscular Hemoglobin 32.3H, Mean Corpuscular Hemoglobin Concent 33.1, Red Cell Distribution Width 13.9, Platelet Count 209, Mean Platelet Volume 7.4, Neutrophils (%) (Auto) 67.6, Lymphocytes (% ) (Auto) 22.1, Monocytes (%) (Auto) 8.7, Eosinophils (%) (Auto) 1.1, Basophils ( %) (Auto) 0.5, Erythrocyte Sedimentation Rate [Pending], Sodium Level 138, Potassium Level 3.6, Chloride Level 106, Carbon Dioxide Level 21, Anion Gap 11, Blood Urea Nitrogen 6L, Creatinine 0.8, Estimat Glomerular Filtration Rate > 60 , Glucose Level 324#H, Calcium Level 8.7, Phosphorus Level 3.0, Magnesium Level 1.9, Total Bilirubin 0.2, Aspartate Amino Transf (AST/SGOT) 54H, Alanine Aminotransferase (ALT/SGPT) 50, Alkaline Phosphatase 130H, C-Reactive Protein, Quantitative 2.6H, Total Protein 6.7, Albumin 3.1L, Globulin 3.6, Albumin/ Globulin Ratio 0.9L, Amylase Level 25, Lipase 189 Current Medications Medications (Trade) Dose Ordered Sig/Greta Route PRN Reason Start Time Stop Time Status Last Admin Dose Admin Acetaminophen (Tylenol) 650 mg Q4H PRN ORAL Fever (temp>100.5F) 01/01/19 00:15 01/28/19 12:14 Albuterol/ Ipratropium (Albuterol/ Ipratropium) 3 ml Q4H PRN HHN Shortness of Breath 01/01/19 00:15 01/03/19 12:14 Amlodipine Besylate (Norvasc) 5 mg DAILY ORAL 01/01/19 09:00 01/30/19 10:14 Amylase/Lipase/ Protease (Zenpep) 4 ea BEFORE MEALS ORAL 01/01/19 06:30 01/29/19 11:29 01/01/19 06:20 Clonidine HCl (Catapres Tab) 0.1 mg Q4H PRN ORAL SBP > 160mmHg 01/01/19 00:45 01/28/19 12:44 Dextrose (Dextrose 50%) 25 ml Q30M PRN IV Hypoglycemia 12/31/18 21:30 01/29/19 12:59 Dextrose (Dextrose 50%) 50 ml Q30M PRN IV Hypoglycemia 12/31/18 21:30 01/29/19 12:59 Heparin Sodium (Porcine) (Heparin 5000 units/ml) 5,000 units EVERY 12 HOURS SUBQ 01/01/19 09:00 01/28/19 20:59 Insulin Aspart (NovoLOG) BEFORE MEALS AND HS SUBQ 01/01/19 06:30 01/29/19 16:29 Insulin Aspart (NovoLOG) 8 units TIAC SUBQ 01/01/19 06:30 01/29/19 11:29 Insulin Detemir (Levemir) 24 units BEDTIME SUBQ 01/01/19 21:00 01/29/19 20:59 Ketorolac Tromethamine (Toradol 30mg) 30 mg Q6H PRN IV pain 5-10 12/31/18 22:00 01/04/19 09:59 Lorazepam (Ativan 2mg/ml 1ml) 2 mg Q2H PRN IV agitation 12/31/18 22:15 01/05/19 12:14 01/01/19 05:38 Morphine Sulfate (Morphine Sulfate) 6 mg Q4H PRN IVP For Pain 7-10 12/31/18 22:00 01/06/19 21:59 01/01/19 04:27 Nitroglycerin (Ntg) 0.4 mg Q5M PRN SL Prn Chest Pain 12/31/18 21:30 01/28/19 12:14 Ondansetron HCl (Zofran) 4 mg Q6H PRN IVP Nausea & Vomiting 01/01/19 00:15 01/28/19 12:14 Pantoprazole (Protonix) 40 mg DAILY IVP 01/01/19 09:00 10/4/19 12:29 Polyethylene Glycol (Miralax) 17 gm DAILYPRN PRN ORAL Constipation 01/01/19 12:15 01/28/19 12:14 Lavelle Diggs MD Jan 01, 2019 07:16
--- NOTE | 2019-01-01 07:20 | NUR ---
HAND-OFF: Report given to MINDA ONEAL.
--- NOTE | 2019-01-01 07:41 | NUR ---
NURSE NOTES: Received report from MINDA Thao. Patient in bed resting, no active s/s cardiac, respiratory distress noticed at this time. Patient AOx4, on room air. IV on right hand 22G, left hand 20G, asymptomatic, patent, intact. Bed in lowest position, side rails upx3, call light within reach. Will continue to monitor.
--- NOTE | 2019-01-01 08:23 | NUR ---
NURSE NOTES: Patient discharged to home per Dr. Diggs. Patient's ID removed and placed in shredder. IV removed. Patient taking taxi per patient's preference, taxi voucher provided. Patient discharged with all belongings in a stable condition.
--- NOTE | 2019-01-01 08:29 | General Progress Note ---
Assessment/Plan Problem List: (1) Diabetes mellitus out of control ICD Codes: E11.65 - Type 2 diabetes mellitus with hyperglycemia SNOMED: 48145677, 443703158 (2) DKA (diabetic ketoacidoses) ICD Codes: E11.10 - Type 2 diabetes mellitus with ketoacidosis without coma SNOMED: 128924102, [id number] Qualifiers: Qualified Codes: E11.10 - Type 2 diabetes mellitus with ketoacidosis without coma (3) Pancreatitis ICD Codes: K85.90 - Acute pancreatitis without necrosis or infection, unspecified SNOMED: 00339194, [id number] Qualifiers: Qualified Codes: K86.1 - Other chronic pancreatitis Assessment/Plan: increase Levemir to 20 units bid increase Novolog to 12 units ac tid continue NISS ac / hs Subjective Allergies: Coded Allergies: No Known Allergies (Unverified , 08/04/18) All Systems: reviewed and negative except above Subjective events noted transferred out of ICU glucose values are still elevated Item Value Date Time Bedside Blood Glucose 343 mg/dl H 01/01/19 0734 Bedside Blood Glucose 343 mg/dl H 01/01/19 0617 Bedside Blood Glucose 231 mg/dl H 12/31/18 2026 Bedside Blood Glucose 194 mg/dl H 12/31/18 1744 Bedside Blood Glucose 293 mg/dl H 12/31/18 1156 Objective Last 24 Hour Vital Signs Date Time Temp Pulse Resp B/P (MAP) Pulse Ox O2 Delivery O2 Flow Rate FiO2 01/01/19 04:57 97.4 01/01/19 04:00 97.4 104 18 150/97 98 Room Air 01/01/19 00:00 97.9 97 18 124/79 99 Room Air 12/31/18 20:57 94 Nasal Cannula 2.0 28 12/31/18 20:00 97.3 102 20 130/87 100 Room Air 12/31/18 20:00 118 12/31/18 19:30 109 18 99 Room Air 21 12/31/18 16:00 110 12/31/18 16:00 98.1 98 18 109/61 98 Room Air 12/31/18 12:00 98.1 110 16 139/77 100 Room Air 12/31/18 12:00 98 12/31/18 12:00 Room Air 12/31/18 11:32 106 151/109 12/31/18 11:00 109 15 151/109 100 Room Air 12/31/18 10:00 108 16 179/124 100 Room Air 12/31/18 09:00 118 17 165/90 100 Room Air Intake and Output 12/31/18 01/01/19 19:00 07:00 Intake Total 1790 ml 480 ml Balance 1790 ml 480 ml Intake Oral 1140 ml 480 ml IV Total 650 ml # Voids 2 4 # Bowel Movements 1 Laboratory Tests 01/01/19 06:00: White Blood Count 5.4, Red Blood Count 3.62L, Hemoglobin 11.7L, Hematocrit 35.4L , Mean Corpuscular Volume 98, Mean Corpuscular Hemoglobin 32.3H, Mean Corpuscular Hemoglobin Concent 33.1, Red Cell Distribution Width 13.9, Platelet Count 209, Mean Platelet Volume 7.4, Neutrophils (%) (Auto) 67.6, Lymphocytes (% ) (Auto) 22.1, Monocytes (%) (Auto) 8.7, Eosinophils (%) (Auto) 1.1, Basophils ( %) (Auto) 0.5, Erythrocyte Sedimentation Rate [Pending], Sodium Level 138, Potassium Level 3.6, Chloride Level 106, Carbon Dioxide Level 21, Anion Gap 11, Blood Urea Nitrogen 6L, Creatinine 0.8, Estimat Glomerular Filtration Rate > 60 , Glucose Level 324#H, Calcium Level 8.7, Phosphorus Level 3.0, Magnesium Level 1.9, Total Bilirubin 0.2, Aspartate Amino Transf (AST/SGOT) 54H, Alanine Aminotransferase (ALT/SGPT) 50, Alkaline Phosphatase 130H, C-Reactive Protein, Quantitative 2.6H, Total Protein 6.7, Albumin 3.1L, Globulin 3.6, Albumin/ Globulin Ratio 0.9L, Amylase Level 25, Lipase 189 Height (Feet): 5 Height (Inches): 2.00 Weight (Pounds): 207 General Appearance: no apparent distress Neck: normal alignment Respiratory/Chest: lungs clear Abdomen: normal bowel sounds Objective Current Medications Medications (Trade) Dose Ordered Sig/Greta Route PRN Reason Start Time Stop Time Status Last Admin Dose Admin Acetaminophen (Tylenol) 650 mg Q4H PRN ORAL Fever (temp>100.5F) 01/01/19 00:15 01/28/19 12:14 Albuterol/ Ipratropium (Albuterol/ Ipratropium) 3 ml Q4H PRN HHN Shortness of Breath 01/01/19 00:15 01/03/19 12:14 Amlodipine Besylate (Norvasc) 5 mg DAILY ORAL 01/01/19 09:00 01/30/19 10:14 Amylase/Lipase/ Protease (Zenpep) 4 ea BEFORE MEALS ORAL 01/01/19 06:30 01/29/19 11:29 01/01/19 06:20 Clonidine HCl (Catapres Tab) 0.1 mg Q4H PRN ORAL SBP > 160mmHg 01/01/19 00:45 01/28/19 12:44 Dextrose (Dextrose 50%) 25 ml Q30M PRN IV Hypoglycemia 12/31/18 21:30 01/29/19 12:59 Dextrose (Dextrose 50%) 50 ml Q30M PRN IV Hypoglycemia 12/31/18 21:30 01/29/19 12:59 Heparin Sodium (Porcine) (Heparin 5000 units/ml) 5,000 units EVERY 12 HOURS SUBQ 01/01/19 09:00 01/28/19 20:59 Insulin Aspart (NovoLOG) BEFORE MEALS AND HS SUBQ 01/01/19 06:30 01/29/19 16:29 01/01/19 07:33 Insulin Aspart (NovoLOG) 8 units TIAC SUBQ 01/01/19 06:30 01/29/19 11:29 01/01/19 07:34 Insulin Detemir (Levemir) 24 units BEDTIME SUBQ 01/01/19 21:00 01/29/19 20:59 Ketorolac Tromethamine (Toradol 30mg) 30 mg Q6H PRN IV pain 5-10 12/31/18 22:00 01/04/19 09:59 Lorazepam (Ativan 2mg/ml 1ml) 2 mg Q2H PRN IV agitation 12/31/18 22:15 01/05/19 12:14 01/01/19 05:38 Morphine Sulfate (Morphine Sulfate) 6 mg Q4H PRN IVP For Pain 7-10 12/31/18 22:00 01/06/19 21:59 01/01/19 04:27 Nitroglycerin (Ntg) 0.4 mg Q5M PRN SL Prn Chest Pain 12/31/18 21:30 01/28/19 12:14 Ondansetron HCl (Zofran) 4 mg Q6H PRN IVP Nausea & Vomiting 01/01/19 00:15 01/28/19 12:14 Pantoprazole (Protonix) 40 mg DAILY IVP 01/01/19 09:00 01/28/19 12:29 Polyethylene Glycol (Miralax) 17 gm DAILYPRN PRN ORAL Constipation 01/01/19 12:15 01/28/19 12:14 Joseph Saleem MD Jan 01, 2019 08:29
[2019-01-01] MEDS ORDERED: Pantoprazole Inj IVP SCH ×2 (09:00)
[2019-01-01] MEDS ORDERED: Heparin 5000 units/ml inj SUBQ SCH (09:00)
[2019-01-01] MEDS ORDERED: Levemir Flexpen SUBQ SCH ×2 (09:00→21:00)
[2019-01-01] MEDS ORDERED: 1/2 NS 1000ml IV ONE (09:29)
--- NOTE | 2019-01-01 10:31 | Surgery Progress Note ---
Surgery Progress Note Subjective Symptoms: improved, tolerating diet, voiding well, passing flatus, BM Objective Last 24 Hour Vital Signs Date Time Temp Pulse Resp B/P (MAP) Pulse Ox O2 Delivery O2 Flow Rate FiO2 01/01/19 04:57 97.4 01/01/19 04:00 97.4 104 18 150/97 98 Room Air 01/01/19 00:00 97.9 97 18 124/79 99 Room Air 12/31/18 20:57 94 Nasal Cannula 2.0 28 12/31/18 20:00 97.3 102 20 130/87 100 Room Air 12/31/18 20:00 118 12/31/18 19:30 109 18 99 Room Air 21 12/31/18 16:00 110 12/31/18 16:00 98.1 98 18 109/61 98 Room Air 12/31/18 12:00 98.1 110 16 139/77 100 Room Air 12/31/18 12:00 98 12/31/18 12:00 Room Air 12/31/18 11:32 106 151/109 12/31/18 11:00 109 15 151/109 100 Room Air I&O Intake and Output 12/31/18 01/01/19 19:00 07:00 Intake Total 1790 ml 480 ml Balance 1790 ml 480 ml Intake Oral 1140 ml 480 ml IV Total 650 ml # Voids 2 4 # Bowel Movements 1 Wound: clean, dry Cardiovascular: RSR Respiratory: clear Abdomen: soft, non-tender, present bowel sounds, non-distended Extremities: no cyanosis Laboratory Tests Test 01/01/19 06:00 White Blood Count 5.4 K/UL (4.8-10.8) Red Blood Count 3.62 M/UL (4.20-5.40) L Hemoglobin 11.7 G/DL (12.0-16.0) L Hematocrit 35.4 % (37.0-47.0) L Mean Corpuscular Volume 98 FL (80-99) Mean Corpuscular Hemoglobin 32.3 PG (27.0-31.0) H Mean Corpuscular Hemoglobin Concent 33.1 G/DL (32.0-36.0) Red Cell Distribution Width 13.9 % (11.6-14.8) Platelet Count 209 K/UL (150-450) Mean Platelet Volume 7.4 FL (6.5-10.1) Neutrophils (%) (Auto) 67.6 % (45.0-75.0) Lymphocytes (%) (Auto) 22.1 % (20.0-45.0) Monocytes (%) (Auto) 8.7 % (1.0-10.0) Eosinophils (%) (Auto) 1.1 % (0.0-3.0) Basophils (%) (Auto) 0.5 % (0.0-2.0) Erythrocyte Sedimentation Rate 57 MM/HR (0-20) H Sodium Level 138 MMOL/L (136-145) Potassium Level 3.6 MMOL/L (3.5-5.1) Chloride Level 106 MMOL/L (98-107) Carbon Dioxide Level 21 MMOL/L (21-32) Anion Gap 11 mmol/L (5-15) Blood Urea Nitrogen 6 mg/dL (7-18) L Creatinine 0.8 MG/DL (0.55-1.30) Estimat Glomerular Filtration Rate > 60 mL/min (>60) Glucose Level 324 MG/DL (74-106) #H Calcium Level 8.7 MG/DL (8.5-10.1) Phosphorus Level 3.0 MG/DL (2.5-4.9) Magnesium Level 1.9 MG/DL (1.8-2.4) Total Bilirubin 0.2 MG/DL (0.2-1.0) Aspartate Amino Transf (AST/SGOT) 54 U/L (15-37) H Alanine Aminotransferase (ALT/SGPT) 50 U/L (12-78) Alkaline Phosphatase 130 U/L (46-116) H C-Reactive Protein, Quantitative 2.6 mg/dL (0.00-0.90) H Total Protein 6.7 G/DL (6.4-8.2) Albumin 3.1 G/DL (3.4-5.0) L Globulin 3.6 g/dL Albumin/Globulin Ratio 0.9 (1.0-2.7) L Amylase Level 25 U/L (25-115) Lipase 189 U/L (73-393) Plan Problems: (1) Abdominal pain Assessment & Plan: 43-year-old female with abdominal pain epigastric region likely related to pancreatitis not her ventral hernia. Ventral hernia stable incisional at this time. See below (2) Pancreatitis Assessment & Plan: Continue with medical management of acute pancreatitis. improving diet as tolerated IV fluids, intake and output management. Pain control. Trend labs. (3) Ventral hernia Assessment & Plan: Patient with history of 3 ventral incisional hernia repairs with mesh over the past 2 years. Patient seems to have recurrence on the CT scan but recurrence is minimal and fat-containing. Would not recommend any acute surgical intervention at this time. Patient will follow-up with her primary surgeon as outpatient for further evaluation. CT scans of be made available to him for review. Thank you for this consultation we will follow with recommendations Additional Comments d/c home plan to follow up with primary surgeon as outpatient Lefty Meraz Jan 01, 2019 10:31
[2019-01-01] MEDS ORDERED: Miralax 17gm pkt ORAL PRN ×2 (12:15)
--- NOTE | 2019-01-02 15:34 | Cardiology Report ---
APPROVED REPORT EKG Measurement Heart [id number] Sinus tachycardia Biatrial enlargement Septal infarct, age undetermined Abnormal ECG
--- NOTE | 2019-01-03 08:33 | Discharge Summary ---
Discharge Summary Discharge Summary _ DATE OF ADMISSION: 12/29/2018 DATE OF DISCHARGE: 01/01/2019 DISCHARGED BY: Dr. Mcintyre REASON FOR ADMISSION: 43 years old female with past medical history of hypertension, diabetes mellitus type 2, hernia repair x3 , presented complaining of abdominal pain for 3 days, described as aching and associated with nausea, vomiting, and diarrhea. No fevers, but patient reported chills. Upon evaluation patient was tachycardic and blood pressure was elevated 177/ 120. Laboratory work-up revealed mild leukocytosis WBC 11.1, hemoglobin 15.6, hematocrit 48.5. Urinalysis revealed +3 protein. +4 glucose , +4 ketones , but was negative for evidence of UTI. Urine test was negative. Sodium 129, potassium 5.1. BUN 10 creatinine 1.3. Glucose 442. Anion gap 24. AST 50 ALT 73. Lipase 532. EKG revealed sinus tachycardia, no acute ischemic changes Chest x-ray demonstrated no acute cardiopulmonary pathology. CT of the abdomen and pelvis revealed findings suggestive of early nonnecrotizing acute pancreatitis. Mild wall thickening of the duodenum, likely reactive secondary to early acute pancreatitis. Evidence of chronic calcifying pancreatitis. Fatty liver. Hepatomegaly. Urine toxicology screen was positive for opiates. In emergency department patient received 3 L of fluid, started on insulin drip . Heart rate improved with fluid resuscitation. Patient subsequently admitted to ICU for insulin drip and further management. CONSULTANTS: pulmonary Dr. Diggs pool lifeguard Dr. Saleem surgery Dr. Meraz GI [facility]: Patient admitted to ICU. Insulin drip administered as per protocol, until anion gap closed. Sand Tester followed. Per pool lifeguard, DKA was likely exacerbated by pancreatitis. After anion gap closed, insulin drip was discontinued. Patient subsequently started on long-acting Levemir twice a day , short acting pre- meals insulin along with sliding scale of insulin as needed. Doses of insulin further optimized as per pool lifeguard. Diabetic diet and diabetic teaching provided. Patient was instructed on compliance with anti-glycemic regimen and diabetic diet at home. Per pool lifeguard not to resume Victoza upon discharge since it may cause exacerbation of existing chronic pancreatitis. GI specialist followed. Patient slowly started on clear liquid diet. Lipase was trended and down to normal , as patient progressed. Patient started on Zenpep. Symptomatic treatment provided. Antiemetic were on board as needed. Diet was further advanced as tolerated. Patient was able to tolerate diet . Surgeon followed. Patient with history of three ventral incisional hernia repair with mesh over the past 2 years. Patient seem to have recurrence on the CT scan, but recurrence minimal and fat -containing. Surgeon did not recommend any surgical intervention at this time. Surgeon recommended to follow-up with her primary surgeon as outpatient for further evaluation. Pain management was addressed. Supportive care provided.. Blood pressure was managed with calcium channel tena . Clonidine was on board as needed. Blood pressure stabilized. DVT and GI prophylaxis provided. Pain management was addressed as needed . Bowel regimen instituted. Urine revealed staph aureus with colony count 10-20 K, insignificant. No dysuria, no urinary frequency, no flank pain. Patient likely have a symptomatic bacteriuria. Mild leukocytosis, present on admission, was likely reactive due to acute pancreatitis, and resolved on the next day. Electrolytes were closely monitored and corrected as needed. Prior to discharge sodium 138, potassium 3.6. Phosphorus and magnesium also corrected. Patient clinically stabilized and was ready for discharge home. FINAL DIAGNOSES: DKA Acute pancreatitis Chronic calcific pancreatitis Diabetes mellitus [id number] Abdominal pain Ventral hernia, status post repair with mesh x3 Hypertension DISCHARGE MEDICATIONS: See Medication Reconciliation list. DISCHARGE INSTRUCTIONS: Patient was discharged home . Follow up with primary care provider in one week. I have been assigned to dictate discharge summary for this account. I was not involved in the patient's management. Shilpa Levi NP Jan 03, 2019 08:33
--- NOTE | 2019-01-03 11:06 | NUR ---
*-* INSURANCE *-* DISCHARGE SUMMARY HAS BEEN FAXED TO: [facility]) Tracking#[id number] - [employer]: Caren Valencia#[phone] ext. [phone]
== END 2019-01-01 09:30 | disposition home or self-care (01) | DRG 282 ==
LOC: EMR 08:25 → EDBEDREQSVC 09:02 → EDBEDREQ 09:02 → ICU 09:16 → EDBEDREQ 10:39 → 2E 12-31 14:25 → 4E 12-31 23:25
DX: K85.90 Acute pancreatitis without necrosis or infection, unspecified (principal); E11.10 Type 2 diabetes mellitus with ketoacidosis without coma; E86.0 Dehydration; K86.1 Other chronic pancreatitis; I10 Essential (primary) hypertension; F17.200 Nicotine dependence, unspecified, uncomplicated; Z79.4 Long term (current) use of insulin; K42.9 Umbilical hernia without obstruction or gangrene; K43.9 Ventral hernia without obstruction or gangrene; E11.65 Type 2 diabetes mellitus with hyperglycemia
CPT/HCPCS: 36415; 71045; 74177; 80048; 80053; 80076; 80307; 81003; 81025; 82009; 82150; 82962; 83690; 83735; 84100; 84702; 85007; 85025; 85610; 85651; 85730; 86140; 87081; 87086; 87181; 93005; 94664; 96365; 96375; 99291; J1815; J2405; J8499; S5561

== ENCOUNTER 2019-03-26 16:35 | Inpatient (IN) | payer OTHER ==
[~2019-03-26] VITALS: Ht 157.5 cm; Wt 84.9 kg
[~2019-03-26 16:35] MED LIST changes: +ADMELOG; +BENZONATATE200 MG ORAL; +Basaglar SUBQ; +CEPHALEXIN500 M1 ORAL; +jardiance ORAL
[2019-03-26] MEDS ORDERED: Morphine Sulfate 4mg/ml Inj (IV USE ONLY) IVP ONE ×2 (17:00→18:45)
[2019-03-26] MEDS ORDERED: Isovue-300 100ml vial INJ PRN (17:00)
[2019-03-26] MEDS ORDERED: Solu-MEDROL 125mg Inj IVP ONE (17:00)
[2019-03-26] MEDS: Ipratropium 0.02% Inh Soln 2.5ml UD HHN SCH ×2 (17:22→17:23)
[2019-03-26] MEDS: Levalbuterol Inh UD 1.25mg/0.5ml HHN SCH ×3 (17:22→21:30)
[2019-03-26 17:57] LABS: HEMATOCRIT 40.8 % (37.0-47.0); HEMOGLOBIN 13.7 G/DL (12.0-16.0); MEAN CORPUSCULAR VOLUME 94 FL (80-99); PLATELET COUNT 37 K/UL (150-450); RED BLOOD COUNT 4.32 M/UL (4.20-5.40); WHITE BLOOD COUNT 3.4 K/UL (4.8-10.8)
[2019-03-26 18:00] LABS: ANION GAP 28 mmol/L (5-15); BLOOD UREA NITROGEN 15 mg/dL (7-18); CALCIUM 8.4 MG/DL (8.5-10.1); CARBON DIOXIDE 11 MMOL/L (21-32); CHLORIDE 88 MMOL/L (98-107); CREATININE 2.5 MG/DL (0.55-1.30); POTASSIUM 5.7 MMOL/L (3.5-5.1); SODIUM 127 MMOL/L (136-145)
[2019-03-26 18:08] LABS: ALANINE AMINOTRANSFERASE 3277 U/L (12-78); ALBUMIN/GLOBULIN RATIO 0.8 (1.0-2.7); ALKALINE PHOSPHATASE 446 U/L (46-116); ASPARTATE AMINO TRANSFERASE < 5 U/L (15-37); BILIRUBIN,TOTAL 1.6 MG/DL (0.2-1.0)
[2019-03-26 18:17] LABS: BILIRUBIN,DIRECT 0.4 MG/DL (0.0-0.3)
[2019-03-26 18:19] VITALS: BP 93/71
--- NOTE | 2019-03-26 18:44 | Emergency Room Report ---
History of Present Illness General Chief Complaint: Abdominal Pain Source: Patient Present Illness HPI 43-year-old female presents ED for evaluation. Complaining of abdominal pain with nausea and vomiting started today. Also states she has been short of breath with coughing. History of COPD. Pain is sharp, 9 out of 10, nonradiating. Has a history of pancreatitis. Also states that she has had multiple hernia operations. Last one was in May of this year. States that appears to be bulging again. Is a diabetic. Denies fevers or chills. Denies chest pain. No other aggravating relieving factors. Denies any other associated symptoms Allergies: Coded Allergies: No Known Allergies (Unverified , 08/04/18) Patient History Past Medical History: DM, HTN Past Surgical History: other - hernia repair Pertinent Family History: none Social History: Denies: smoking, alcohol use, drug use Now: No Immunizations: UTD Reviewed Nursing Documentation: PMH: Agreed; PSxH: Agreed Nursing Documentation-PMH Past Medical History: No History, Except For Hx Cardiac Problems: No Hx Hypertension: Yes Hx Pacemaker: No Hx Asthma: No Hx COPD: No Hx Diabetes: Yes - Type II Hx Cancer: No Hx Gastrointestinal Problems: Yes - Hernia repair 2019 Hx Dialysis: No Hx Neurological Problems: No Hx Cerebrovascular Accident: No Hx Seizures: No Review of Systems All Other Systems: negative except mentioned in HPI Physical Exam Vital Signs Date Time Temp Pulse Resp B/P (MAP) Pulse Ox O2 Delivery O2 Flow Rate FiO2 03/26/19 16:37 98.4 125 20 93/71 (78) 97 Room Air 03/26/19 17:15 21 Sp02 EP Interpretation: reviewed, normal General Appearance: alert, GCS 15, non-toxic, mild distress Head: normocephalic, atraumatic Eyes: bilateral eye normal inspection, bilateral eye PERRL ENT: hearing grossly normal, normal pharynx, no angioedema, normal voice Neck: full range of motion, supple/symm/no masses Respiratory: chest non-tender, lungs clear, normal breath sounds, speaking full sentences Cardiovascular #1: no edema, tachycardia Cardiovascular #2: 2+ carotid (R), 2+ carotid (L), 2+ radial (R), 2+ radial (L) , 2+ dorsalis pedis (R), 2+ dorsalis pedis (L) Gastrointestinal: normal bowel sounds, soft, non-distended, tenderness - epigastric, hernia - ventral Rectal: deferred Genitourinary: normal inspection, no CVA tenderness Musculoskeletal: back normal, normal range of motion, gait/station normal, non- tender Neurologic: alert, motor strength/tone normal, oriented x3, sensory intact, responsive, speech normal Psychiatric: judgement/insight normal, memory normal, mood/affect normal, no suicidal/homicidal ideation Reflexes: 3+ bicep (R), 3+ bicep (L), 3+ tricep (R), 3+ tricep (L), 3+ knee (R) , 3+ knee (L) Skin: other - see nursing skin notes Lymphatic: no adenopathy Procedures Critical Care Time Critical Care Time i. I feel this is a highly complex case requiring extensive working including EKG/Rhythm strip, Xray/CT/US, Blood/urine lab work, repeat exams while in ED, and administration of strong opiates/narcotics for pain control, admission to hospital or close patient follow up. Total time: 60 min bedside evaluation and treatment excludes procedures (EKG). Reason for critical care: DKA Possible complications: hypotension, hypertension, [place], shock, arrhythmias, metabolic acidosis, end organ damage, respiratory failure. Interventions: labs, IVFS, EKG, meds, nebs, CXR, CT, ABG, insulin bolus + drip. discussion with moshgiach Course: Patient presented with abdominal pain nausea vomiting. Tachycardic. Glucose greater than 800. Acidotic. ABG shows DKA. Renal insufficiency. LFTs elevated. CT shows acute on chronic pancreatitis. Insulin bolus started. Insulin drip started. IV fluids given. Consultations: nursing staff, EMS, family Performed by: Dr Waggoner Tolerated well condition = critical j. because of unstable vital signs this patient had a condition that could potentially threaten life or limb. I feel this is a critical patient who required my full attention while patient was considered critical. Total Critical Care Time excluding procedures was greater than 60 minutes Medical Decision Making Diagnostic Impression: Primary Impression: DKA (diabetic ketoacidoses) Qualified Codes: E13.10 - Other specified diabetes mellitus with ketoacidosis without coma Additional Impressions: Acute on chronic pancreatitis Renal insufficiency ER Course Hospital Course 43 yo F presents with abd pain, vomiting. h/o hernia. h/o pancreatitis. Differential diagnoses include: ETOH/drug ingestion, pancreatitis, obstructed hernia Clinical course Patient placed on stretcher. On alterations manager. After initial history and physical I ordered labs, EKG, CXR, nebs, CT She has difficult IV stick. I placed peripheral EJ line Labs-glucose greater than 800, anion gap elevated, bicarbonate low, BUN/ creatinine elevated. LFTs markedly elevated EKG - NSR, no acute ischemic changes interpreted by me Chest x-ray unremarkable CT A/P - acute on chronic pancreatitis IV fluids given. Insulin bolus and insulin drip started. Case discussed with and he agreed to accept the patient to his service for further care and support i. I feel this is a highly complex case requiring extensive working including EKG/Rhythm strip, Xray/CT/US, Blood/urine lab work, repeat exams while in ED, and administration of strong opiates/narcotics for pain control, admission to hospital or close patient follow up. j. because of unstable vital signs this patient had a condition that could potentially threaten life or limb. I feel this is a critical patient who required my full attention while patient was considered critical. Total Critical Care Time excluding procedures was greater than 60 minutes diagnosis - DKA, acute on chronic pancreatitis, renal insuffiicency admitted to ICU in critical condition Labs Test 03/26/19 17:05 03/26/19 18:23 03/26/19 19:50 White Blood Count 3.4 K/UL (4.8-10.8) Red Blood Count 4.32 M/UL (4.20-5.40) Hemoglobin 13.7 G/DL (12.0-16.0) Hematocrit 40.8 % (37.0-47.0) Mean Corpuscular Volume 94 FL (80-99) Mean Corpuscular Hemoglobin 31.8 PG (27.0-31.0) Mean Corpuscular Hemoglobin Concent 33.7 G/DL (32.0-36.0) Red Cell Distribution Width 13.0 % (11.6-14.8) Platelet Count 37 K/UL (150-450) Mean Platelet Volume 10.8 FL (6.5-10.1) Neutrophils (%) (Auto) % (45.0-75.0) Lymphocytes (%) (Auto) % (20.0-45.0) Monocytes (%) (Auto) % (1.0-10.0) Eosinophils (%) (Auto) % (0.0-3.0) Basophils (%) (Auto) % (0.0-2.0) Differential Total Cells Counted 25 Neutrophils % (Manual) 68 % (45-75) Lymphocytes % (Manual) 16 % (20-45) Monocytes % (Manual) 0 % (1-10) Eosinophils % (Manual) 4 % (0-3) Basophils % (Manual) 0 % (0-2) Band Neutrophils 12 % (0-8) Platelet Estimate Decreased Platelet Morphology Normal Sodium Level 127 MMOL/L (136-145) Potassium Level 5.7 MMOL/L (3.5-5.1) Chloride Level 88 MMOL/L (98-107) Carbon Dioxide Level 11 MMOL/L (21-32) Anion Gap 28 mmol/L (5-15) Blood Urea Nitrogen 15 mg/dL (7-18) Creatinine 2.5 MG/DL (0.55-1.30) Estimat Glomerular Filtration Rate 25.7 mL/min (>60) Glucose Level 876 MG/DL (74-106) Calcium Level 8.4 MG/DL (8.5-10.1) Total Bilirubin 1.6 MG/DL (0.2-1.0) Direct Bilirubin 0.4 MG/DL (0.0-0.3) Aspartate Amino Transf (AST/SGOT) < 5 U/L (15-37) Alanine Aminotransferase (ALT/SGPT) 3277 U/L (12-78) Alkaline Phosphatase 446 U/L (46-116) Total Protein 6.9 G/DL (6.4-8.2) Albumin 3.0 G/DL (3.4-5.0) Globulin 3.9 g/dL Albumin/Globulin Ratio 0.8 (1.0-2.7) Lipase 475 U/L (73-393) Human Chorionic Gonadotropin, Qual Negative (NEGATIVE) Arterial Blood pH 7.153 (7.350-7.450) Arterial Blood Partial Pressure CO2 18.0 mmHg (35.0-45.0) Arterial Blood Partial Pressure O2 125.0 mmHg (75.0-100.0) Arterial Blood HCO3 6.2 mmol/L (22.0-26.0) Arterial Blood Oxygen Saturation 96.8 % (95-100) Arterial Blood Base Excess -20.6 (-2-2) Amarjit Test Positive Urine Color Yellow Urine Appearance Cloudy Urine pH 5 (4.5-8.0) Urine Specific [place] 1.010 (1.005-1.035) Urine Protein 3+ (NEGATIVE) Urine Glucose (UA) 4+ (NEGATIVE) Urine Ketones 1+ (NEGATIVE) Urine Blood 4+ (NEGATIVE) Urine Nitrite Negative (NEGATIVE) Urine Bilirubin Negative (NEGATIVE) Urine Urobilinogen Normal MG/DL (0.0-1.0) Urine Leukocyte Esterase Negative (NEGATIVE) Urine RBC 5-10 /HPF (0 - 2) Urine WBC 0-2 /HPF (0 - 2) Urine Squamous Epithelial Cells Few /LPF (NONE/OCC) Urine Amorphous Sediment Many /LPF (NONE) Urine Bacteria Moderate /HPF (NONE) Urine Yeast Occasional /HPF (NONE) EKG Diagnostic Results Rate: tachycardiac Rhythm: NSR ST Segments: no acute changes ASA given to the pt in ED: No Rhythm Strip Diag. Results EP Interpretation: yes Rhythm: NSR, no PVC's, no ectopy Chest X-Ray Diagnostic Results Chest X-Ray Diagnostic Results : Chest X-Ray Ordered: Yes # of Views/Limited/Complete: 1 View Indication: Shortness of Breath EP Interpretation: Yes Interpretation: no consolidation, no effusion, no pneumothorax, no acute cardiopulmonary disease Impression: No acute disease Electronically Signed by: Electronically signed by Wesley Waggoner MD CT/MRI/US Diagnostic Results CT/MRI/US Diagnostic Results : Imaging Test Ordered: CT A/P Impression FINDINGS: Lung bases: No mass. No consolidation. ABDOMEN: Liver: Unremarkable. Gallbladder and bile ducts: Unremarkable. Pancreas: Stranding around the pancreas. Multiple calcifications within the pancreas.. Spleen: Unremarkable. Adrenals: Unremarkable. Kidneys and ureters: No hydronephrosis. Stomach and bowel: No bowel obstruction. No bowel wall thickening. Fatty infiltration of the colonic wall. Mild hiatal hernia. PELVIS: Appendix: No evidence of appendicitis. Bladder: Unremarkable. Reproductive: Unremarkable. ABDOMEN and PELVIS: Intraperitoneal space: Unremarkable. Bones/joints: No acute fractures. Soft tissues: Fat containing periumbilical hernia. Vasculature: No abdominal aortic aneurysm. Lymph nodes: No enlarged lymph nodes. Last Vital Signs Date Time Temp Pulse Resp B/P (MAP) Pulse Ox O2 Delivery O2 Flow Rate FiO2 03/26/19 18:19 135 15 Room Air 21 03/26/19 18:19 98.4 93/71 99 Status: improved Disposition: ADMITTED INPATIENT Condition: Critical Referrals: Shree Mcintyre MD (PCP) Wesley Waggoner MD Mar 26, 2019 18:44
[2019-03-26] MEDS ORDERED: Insulin Human Regular 100units/ml 3ml IV ONE (19:00)
[2019-03-26 19:04] VITALS: BP 99/70
--- NOTE | 2019-03-26 19:47 | Diagnostic Imaging Report ---
EXAM: XR Chest, 1 View CLINICAL HISTORY: COUGH TECHNIQUE: Frontal view of the chest. COMPARISON: 12/29/18 FINDINGS: Lungs: No consolidation or mass. Pleural space: No acute findings Heart: No cardiomegaly. Bones/joints: No acute findings. IMPRESSION: No acute cardiopulmonary process.
--- NOTE | 2019-03-26 19:51 | Diagnostic Imaging Report ---
EXAM: CT Abdomen and Pelvis With Intravenous Contrast CLINICAL HISTORY: ABD PAIN TECHNIQUE: Axial computed tomography images of the abdomen and pelvis with intravenous contrast. CTDI is 24 mGy and DLP is 1365 mGy-cm. One or more of the following dose reduction techniques were used: automated exposure control, adjustment of the mA and/or kV according to patient size, use of iterative reconstruction technique. COMPARISON: 09/29/18 CT abdomen FINDINGS: Lung bases: No mass. No consolidation. ABDOMEN: Liver: Unremarkable. Gallbladder and bile ducts: Unremarkable. Pancreas: Stranding around the pancreas. Multiple calcifications within the pancreas.. Spleen: Unremarkable. Adrenals: Unremarkable. Kidneys and ureters: No hydronephrosis. Stomach and bowel: No bowel obstruction. No bowel wall thickening. Fatty infiltration of the colonic wall. Mild hiatal hernia. PELVIS: Appendix: No evidence of appendicitis. Bladder: Unremarkable. Reproductive: Unremarkable. ABDOMEN and PELVIS: Intraperitoneal space: Unremarkable. Bones/joints: No acute fractures. Soft tissues: Fat containing periumbilical hernia. Vasculature: No abdominal aortic aneurysm. Lymph nodes: No enlarged lymph nodes. IMPRESSION: Evidence of acute on chronic pancreatitis. No pseudocyst. Hepatomegaly with severe steatosis. Mild hiatal hernia.
[2019-03-26] MEDS ORDERED: Miralax 17gm pkt ORAL PRN (20:00)
[2019-03-26] MEDS ORDERED: LORazepam Inj 2mg/ml 1ml IV PRN (20:00)
[2019-03-26 20:08] LABS: APPEARANCE,URINE CLOUDY; BILIRUBIN, URINE NEGATIVE (NEGATIVE); GLUCOSE, URINE (UA) 4+ (NEGATIVE); KETONES,URINE 1+ (NEGATIVE); LEUKOCYTE ESTERASE ,URINE NEGATIVE (NEGATIVE); NITRITE,URINE NEGATIVE (NEGATIVE); PH,URINE 5 (4.5-8.0); PROTEIN,URINE 3+ (NEGATIVE); UROBILINOGEN,URINE NORMAL MG/DL (0.0-1.0)
[2019-03-26 20:10] LABS: COLOR,URINE YELLOW
[2019-03-26] MEDS ORDERED: Nitroglycerin Subl 0.4mg tab SL PRN (20:15)
[2019-03-26 20:59] VITALS: BP 134/78
[2019-03-26] MEDS ORDERED: Heparin 5000 units/ml inj SUBQ SCH (21:00)
[2019-03-26 21:16] VITALS: BP 149/79
[2019-03-26] MEDS: Insulin Human Regular 100units/ml 3ml IV PRN ×3 (21:36→23:56)
[2019-03-26] MEDS: [UNRECOGNIZED DRUG - OTHER] IV SCH ×2 (21:54)
[2019-03-26 22:00] VITALS: BP 134/71
[2019-03-26 23:00] VITALS: BP 133/75
[2019-03-26] MEDS ORDERED: Insulin Rate Change 1 Each MISC PRN (23:00)
[2019-03-26] MEDS: Morphine Sulfate 4mg/ml Inj (IV USE ONLY) IVP PRN (23:33)
[2019-03-27] VITALS (28 sets, daily range): BP systolic 108–164; BP diastolic 58–115
[2019-03-27] MEDS: [UNRECOGNIZED DRUG - OTHER] IV SCH ×8 (00:29→11:10)
[2019-03-27] MEDS: Albuterol/Ipratropium 3ml neb HHN PRN ×2 (00:54→11:19)
[2019-03-27] MEDS: Insulin Human Regular 100units/ml 3ml IV PRN ×16 (01:00→19:32)
[2019-03-27] MEDS ORDERED: Insulin Human Regular 100units/ml 3ml IV SCH (02:15)
[2019-03-27] MEDS: Morphine Sulfate 4mg/ml Inj (IV USE ONLY) IVP PRN ×4 (04:19→23:23)
[2019-03-27 04:33] LABS: INR 2.2 (0.9-1.1)
[2019-03-27 04:45] LABS: ANION GAP 31 mmol/L (5-15); BLOOD UREA NITROGEN 17 mg/dL (7-18); CALCIUM 7.5 MG/DL (8.5-10.1); CHLORIDE 99 MMOL/L (98-107); CREATININE 3.1 MG/DL (0.55-1.30); SODIUM 137 MMOL/L (136-145)
[2019-03-27 04:48] LABS: CARBON DIOXIDE 7 MMOL/L (21-32)
[2019-03-27 04:49] LABS: ALANINE AMINOTRANSFERASE 2309 U/L (12-78); ALBUMIN 3.2 G/DL (3.4-5.0); ALKALINE PHOSPHATASE 532 U/L (46-116); ASPARTATE AMINO TRANSFERASE < 5 U/L (15-37); BILIRUBIN,DIRECT 0.8 MG/DL (0.0-0.3); BILIRUBIN,TOTAL 1.2 MG/DL (0.2-1.0); PHOSPHORUS 8.1 MG/DL (2.5-4.9)
--- NOTE | 2019-03-27 09:10 | Consultation ---
Consult Note Consult Note asked to eval for electrolyte and fluid management 43-year-old female presents ED for evaluation. Complaining of abdominal pain with nausea and vomiting started today. Also states she has been short of breath with coughing. History of COPD. Pain is sharp, 9 out of 10, nonradiating. Has a history of pancreatitis. Also states that she has had multiple hernia operations. Last one was in May of this year. States that appears to be bulging again. Is a diabetic. Denies fevers or chills. Denies chest pain. No other aggravating relieving factors. Denies any other associated symptoms No Known Allergies (Unverified , 08/04/18) Past Medical History: DM, HTN Past Surgical History: other - hernia repair Past Medical History: No History, Except For Hx Hypertension: Yes Hx Diabetes: Yes - Type II Hx Gastrointestinal Problems: Yes - Hernia repair 2018 . Assessment/Plan Acute renal failure ? CKD DKA elevated LFTs Elevated Lipase Hydrate mionitor electrolyte and chemistries eD echo Kidney ABBY per order Amrit Lopez MD Mar 27, 2019 09:10
[2019-03-27 09:17] LABS: HEMATOCRIT 40.8 % (37.0-47.0); HEMOGLOBIN 12.4 G/DL (12.0-16.0); MEAN CORPUSCULAR VOLUME 101 FL (80-99); PLATELET COUNT 25 K/UL (150-450); RED BLOOD COUNT 4.03 M/UL (4.20-5.40); RED CELL DISTRIBUTION WIDTH 14.7 % (11.6-14.8); WHITE BLOOD COUNT 8.8 K/UL (4.8-10.8)
[2019-03-27] MEDS ORDERED: Levalbuterol Inh UD 1.25mg/0.5ml ONE (09:28)
[2019-03-27] MEDS: Levalbuterol Inh UD 1.25mg/0.5ml HHN SCH (09:37)
[2019-03-27 09:41] LABS: CHOLESTEROL 75 MG/DL (< 200); HDL CHOLESTEROL 9 MG/DL (40-60); TRIGLYCERIDES 171 MG/DL (30-150)
[2019-03-27 09:56] LABS: PHOSPHORUS 7.6 MG/DL (2.5-4.9)
[2019-03-27] MEDS: guaiFENesin 100mg/5ml Liq ud ORAL PRN ×2 (11:20→22:54)
--- NOTE | 2019-03-27 14:54 | History & Physical ---
History and Physical History & Physicial Dictated for Int Med-DR Mcintyre no. [id number]. Marshal Gilbert MD Mar 27, 2019 14:54
--- NOTE | 2019-03-27 16:35 | Diagnostic Imaging Report ---
Indication: Dyspnea Comparison: 03/26/2019 A single view chest radiograph was obtained. Findings: Endotracheal tube is noted. Tip is projected over the right mainstem bronchus. Extensive bilateral airspace disease noted and new since the last exam. Heart size is normal and unchanged. IMPRESSION: Interval development of new extensive airspace disease bilaterally. Endotracheal tube right mainstem bronchus
[2019-03-27 17:05] LABS: ANION GAP 18 mmol/L (5-15); BLOOD UREA NITROGEN 19 mg/dL (7-18); CALCIUM 6.5 MG/DL (8.5-10.1); CARBON DIOXIDE 17 MMOL/L (21-32); CHLORIDE 102 MMOL/L (98-107); CREATININE 3.5 MG/DL (0.55-1.30); POTASSIUM 3.9 MMOL/L (3.5-5.1); SODIUM 136 MMOL/L (136-145)
[2019-03-27] MEDS ORDERED: Lidocaine 1% Plain 30 ml INJ PRN (17:15)
[2019-03-27] MEDS ORDERED: Heparin1,000 units/500ml Premix(Conc:2 units/ml) IV PRN (17:15)
[2019-03-27 17:18] LABS: CREATINE KINASE 394 U/L (26-140)
--- NOTE | 2019-03-27 17:25 | Pulmonolgy Critical Care Note ---
Critical Care - Asmt/Plan Assessment/Plan: Pulmonary Critical Care Consultation HPI Patient is a 43-year-old woman with past history of Diabetes, Hypertension, Chronic Obstructive Pulmonary Disease, admitted with abdominal pain, nausea and vomiting, shortness of breath, coughing. She has a history of pancreatitis, noted to have features of Pancreatitis as well as azotemia, elevated liver function tests. She has history of multiple hernia operations, last in May 2018. No fevers or chills. Denies chest pain. No other aggravating relieving factors. Denies any other associated symptoms. Patient noted to be in Diabetic Ketoacidosis - on Insulin gtt, worsening Metabolic acidosis despite this, noted to have worsening respiratory distress today, requiring intubation and mechanical ventilation, ETT adjusted Allergies: No Known Allergies Past Medical History: Diabetes, Hypertension, Chronic Obstructive Pulmonary Disease, Pancreatitis Past Surgical History: Multiple hernia repairs Social History: No history of smoking, alcohol use, drug use All Other Systems: negative except mentioned in HPI per ED, not currently obtainable Physical Exam Vital Signs Noted General Appearance: alert, GCS 15, ill appearing, sedated on the ventilator Head: normocephalic, atraumatic Eyes: bilateral eye normal inspection, bilateral PERRL ENT: moist mm, ETT Neck: no LN, no masses Respiratory: bilateral rhonchi Cardiovascular: HS1, HS2 normal, mild edema, tachycardia Gastrointestinal: normal bowel sounds, soft, non-distended, tenderness - epigastric, hernia - ventral Musculoskeletal: well perfused, moving all limbs Neurologic: no seizures, no focal signs Impression: Pneumonia vs ARDS Respiratory Failure Abdominal pain, Pancreatitis Elevated Liver Function Tests Diabetic ketoacidoses Severe metabolic acidosis T2 Diabetes Hypertension Chronic Obstructive Pulmonary Disease, Chronic Pancreatitis Renal insufficiency Multiple Previous Hernia Surgeries Plan ACVC, Vt 500, Increase RR 24, adjust PEEP Adjust ETT Repeat CXR HCO3 gtt Monitor labs Repeat ABG Broad spectrum antibiotics: Zosyn and Vancomycin PRN Sedation PPX IVF reduced Insulin gtt PICC line Labs noted Test 03/26/19 17:05 03/26/19 18:23 03/26/19 19:50 White Blood Count 3.4 K/UL (4.8-10.8) Red Blood Count 4.32 M/UL (4.20-5.40) Hemoglobin 13.7 G/DL (12.0-16.0) Hematocrit 40.8 % (37.0-47.0) Mean Corpuscular Volume 94 FL (80-99) Mean Corpuscular Hemoglobin 31.8 PG (27.0-31.0) Mean Corpuscular Hemoglobin Concent 33.7 G/DL (32.0-36.0) Red Cell Distribution Width 13.0 % (11.6-14.8) Platelet Count 37 K/UL (150-450) Mean Platelet Volume 10.8 FL (6.5-10.1) Neutrophils (%) (Auto) % (45.0-75.0) Lymphocytes (%) (Auto) % (20.0-45.0) Monocytes (%) (Auto) % (1.0-10.0) Eosinophils (%) (Auto) % (0.0-3.0) Basophils (%) (Auto) % (0.0-2.0) Differential Total Cells Counted 25 Neutrophils % (Manual) 68 % (45-75) Lymphocytes % (Manual) 16 % (20-45) Monocytes % (Manual) 0 % (1-10) Eosinophils % (Manual) 4 % (0-3) Basophils % (Manual) 0 % (0-2) Band Neutrophils 12 % (0-8) Platelet Estimate Decreased Platelet Morphology Normal Sodium Level 127 MMOL/L (136-145) Potassium Level 5.7 MMOL/L (3.5-5.1) Chloride Level 88 MMOL/L (98-107) Carbon Dioxide Level 11 MMOL/L (21-32) Anion Gap 28 mmol/L (5-15) Blood Urea Nitrogen 15 mg/dL (7-18) Creatinine 2.5 MG/DL (0.55-1.30) Estimat Glomerular Filtration Rate 25.7 mL/min (>60) Glucose Level 876 MG/DL (74-106) Calcium Level 8.4 MG/DL (8.5-10.1) Total Bilirubin 1.6 MG/DL (0.2-1.0) Direct Bilirubin 0.4 MG/DL (0.0-0.3) Aspartate Amino Transf (AST/SGOT) < 5 U/L (15-37) Alanine Aminotransferase (ALT/SGPT) 3277 U/L (12-78) Alkaline Phosphatase 446 U/L (46-116) Total Protein 6.9 G/DL (6.4-8.2) Albumin 3.0 G/DL (3.4-5.0) Globulin 3.9 g/dL Albumin/Globulin Ratio 0.8 (1.0-2.7) Lipase 475 U/L (73-393) Human Chorionic Gonadotropin, Qual Negative (NEGATIVE) Arterial Blood pH 7.153 (7.350-7.450) Arterial Blood Partial Pressure CO2 18.0 mmHg (35.0-45.0) Arterial Blood Partial Pressure O2 125.0 mmHg (75.0-100.0) Arterial Blood HCO3 6.2 mmol/L (22.0-26.0) Arterial Blood Oxygen Saturation 96.8 % (95-100) Arterial Blood Base Excess -20.6 (-2-2) Amarjit Test Positive Urine Color Yellow Urine Appearance Cloudy Urine pH 5 (4.5-8.0) Urine Specific [place] 1.010 (1.005-1.035) Urine Protein 3+ (NEGATIVE) Urine Glucose (UA) 4+ (NEGATIVE) Urine Ketones 1+ (NEGATIVE) Urine Blood 4+ (NEGATIVE) Urine Nitrite Negative (NEGATIVE) Urine Bilirubin Negative (NEGATIVE) Urine Urobilinogen Normal MG/DL (0.0-1.0) Urine Leukocyte Esterase Negative (NEGATIVE) Urine RBC 5-10 /HPF (0 - 2) Urine WBC 0-2 /HPF (0 - 2) Urine Squamous Epithelial Cells Few /LPF (NONE/OCC) Urine Amorphous Sediment Many /LPF (NONE) Urine Bacteria Moderate /HPF (NONE) Urine Yeast Occasional /HPF (NONE) EKG: Rate: tachycardiac Rhythm: NSR ST Segments: no acute changes ASA given to the pt in ED: No Chest X-Ray 03/26/2019: no consolidation, no effusion, no pneumothorax, no acute cardiopulmonary disease CXR: 03/27/2019: worsening bilateral infiltrates, low lung volumes, ETT low CT A/P: Lung bases: No mass. No consolidation. ABDOMEN: Liver: Unremarkable. Gallbladder and bile ducts: Unremarkable. Pancreas: Stranding around the pancreas. Multiple calcifications within the pancreas.. Spleen: Unremarkable. Adrenals: Unremarkable. Kidneys and ureters: No hydronephrosis. Stomach and bowel: No bowel obstruction. No bowel wall thickening. Fatty infiltration of the colonic wall. Mild hiatal hernia. PELVIS: Appendix: No evidence of appendicitis. Bladder: Unremarkable. Reproductive: Unremarkable. ABDOMEN and PELVIS: Intraperitoneal space: Unremarkable. Bones/joints: No acute fractures. Soft tissues: Fat containing periumbilical hernia. Vasculature: No abdominal aortic aneurysm. Lymph nodes: No enlarged lymph nodes. Critical Care - Objective Last 24 Hour Vital Signs Date Time Temp Pulse Resp B/P (MAP) Pulse Ox O2 Delivery O2 Flow Rate FiO2 03/27/19 16:02 134 19 100 03/27/19 14:00 117 14 122/82 91 Nasal Cannula 4.0 03/27/19 13:00 119 15 155/92 92 Nasal Cannula 4.0 03/27/19 12:00 Room Air 03/27/19 12:00 120 03/27/19 12:00 97.5 124 18 146/86 93 Nasal Cannula 4.0 03/27/19 11:18 120 16 100 Nasal Cannula 2.0 28 120 18 100 03/27/19 11:00 108 10 138/90 95 Nasal Cannula 4.0 03/27/19 10:00 114 15 145/86 99 Nasal Cannula 4.0 03/27/19 09:32 113 11 100 Nasal Cannula 2.0 28 119 14 99 03/27/19 09:31 113 14 99 Nasal Cannula 2.0 28 03/27/19 09:00 118 15 135/68 92 Room Air 03/27/19 08:00 97.8 120 14 128/88 97 Room Air 03/27/19 08:00 Room Air 03/27/19 08:00 114 03/27/19 07:00 132 23 154/113 87 Room Air 03/27/19 06:00 120 14 141/77 98 Room Air 03/27/19 05:00 124 21 138/86 99 Room Air 03/27/19 04:57 97.6 03/27/19 04:00 128 03/27/19 04:00 97.7 130 18 108/58 100 Nasal Cannula 03/27/19 04:00 Room Air 03/27/19 03:00 123 18 120/64 100 Nasal Cannula 03/27/19 02:00 118 13 129/70 99 Nasal Cannula 03/27/19 01:00 123 17 148/80 100 Nasal Cannula 03/27/19 00:54 120 16 100 Room Air 21 124 18 100 03/27/19 00:00 115 11 129/64 100 Nasal Cannula 03/27/19 00:00 118 03/27/19 00:00 Room Air 03/26/19 23:00 128 23 133/75 99 Nasal Cannula 03/26/19 22:00 Room Air 03/26/19 22:00 125 15 134/71 99 Nasal Cannula 03/26/19 21:36 120 03/26/19 21:16 97.6 125 15 149/79 99 Nasal Cannula 2.0 03/26/19 21:05 98.4 126 20 134/78 100 Room Air 21 03/26/19 20:59 98.4 126 20 134/78 100 Room Air 03/26/19 19:04 98.4 131 19 99/70 100 Room Air 21 03/26/19 18:46 98.4 03/26/19 18:46 98.4 03/26/19 18:19 135 15 Room Air 21 03/26/19 18:19 98.4 132 18 93/71 99 Room Air 21 03/26/19 18:04 135 15 100 03/26/19 17:16 118 17 100 Room Air 21 03/26/19 17:15 118 17 100 Room Air 21 Micro: Microbiology Date/Time Source Procedure Growth Status 03/26/19 17:05 Nasal Nares - Final Complete 03/26/19 17:05 Nasal Nares - Final Complete 03/26/19 19:50 Urine,Clean Catch Urine Culture - Preliminary NO GROWTH Resulted Accucheck: 188 Critical Care - Subjective ROS Limited/Unobtainable: Yes Condition: critical IV Access: peripheral EKG Rhythm: Sinus Tachycardia FI02: 100 Vent Support Breath Rate: 16 Vent Support Mode: AC Vent Tidal Volume: 500 Sputum Amount: Scant PEEP: 5.0 PIP: 27 I&O: Intake and Output 03/26/19 03/27/19 19:00 07:00 Intake Total 1203.0 ml Balance 1203.0 ml IV Total 1203.0 ml # Voids 1 Julio Rodrigez MD Mar 27, 2019 17:25
[2019-03-27 17:35] LABS: ALANINE AMINOTRANSFERASE 3845 U/L (12-78); ALBUMIN/GLOBULIN RATIO 0.8 (1.0-2.7); ALKALINE PHOSPHATASE 519 U/L (46-116); ASPARTATE AMINO TRANSFERASE < 5 U/L (15-37); BILIRUBIN,TOTAL 1.2 MG/DL (0.2-1.0); PHOSPHORUS 6.2 MG/DL (2.5-4.9)
[2019-03-27 17:41] LABS: BILIRUBIN,DIRECT 0.8 MG/DL (0.0-0.3)
[2019-03-27] MEDS ORDERED: Vancomycin 1gm in D5W 275ml IVPB SCH (18:00)
[2019-03-27] MEDS ORDERED: Sodium Bicarbonate 150 ML in D5W 1000ml 1,000 ML IV SCH (18:00)
[2019-03-27] MEDS: Ipratropium 0.02% Inh Soln 2.5ml UD HHN SCH ×2 (19:00→23:00)
[2019-03-27] MEDS ORDERED: Lidocaine 1% 10mg/ml/Epi 0.005mg/ml 30ml vial INJ ONE (19:05)
--- NOTE | 2019-03-27 19:24 | Consultation ---
History of Present Illness General Date patient seen: Mar 27, 2019 Reason for Hospitalization: Abdominal Pain Present Illness HPI 43F with multiple medical comorbidities presented to [facility] [place] ED with complaints of abd pain and noted to have abnormal labs in DKA and insufficiency requiring admission to ICU. Since admission patient has decompensated and is now intubated on vent support on multiple drips. Surgery called to evaluate and assist with care. I was called in at 18:30pm to assist with care of this critically ill patient who is decompensating by the home health travel ot and primary. patient seen, chart reviewed, patient examined. she is on vent support via ET tube and ill appearing. unable to provide history. EMR reviewed. Allergies: Coded Allergies: No Known Allergies (Unverified , 08/04/18) Medication History Scheduled Amlodipine Besylate* (Amlodipine Besylate*), 5 MG ORAL DAILY, (Reported) Cephalexin* (Keflex*), 500 MG ORAL EVERY 6 HOURS, (Reported) Doxycycline Hyclate* (Vibramycin*), 100 MG ORAL DAILY, (Reported) Fluconazole (Fluconazole), 100 MG ORAL BID, (Reported) Gabapentin* (Gabapentin*), 300 MG ORAL BID, (Reported) Ketoconazole (Ketoconazole), 1 APPLIC TOPIC DAILYPRN, (Reported) Liraglutide (Victoza 2-Rodrigo), 0.6 MG SUBQ DAILY, (Reported) Metformin Hcl* (Glucophage*), 1,000 MG ORAL BID Nystatin* (Nystatin*), 1 APPLIC TOPIC THREE TIMES A DAY Triamcinolone (Triamcinolone Acetonide), 1 EA APPLIC EVERY 12 HOURS [Basaglar], 20 UNITS SUBQ BID, (Reported) [Empagliflozin], 10 MG PO DAILY, (Reported) Scheduled PRN Benzonatate* (Benzonatate*), 100 MG ORAL THREE TIMES A DAY PRN for For Cough, ( Reported) Miscellaneous Medications [Admelog], SUBQ, (Reported) [Admelog], (Reported) Patient History Limited by: medical condition History Provided By: Medical Record, PMD Healthcare decision maker Resuscitation status Full Code Advanced Directive on File Past Medical/Surgical History Past Medical/Surgical History: (1) Diarrhea (2) Abdominal pain (3) Paronychia (4) Cellulitis (5) Ventral hernia (6) Hyperglycemia (7) Hypoglycemia (8) Cellulitis and abscess of hand (9) Diabetes mellitus out of control (10) History of diabetes mellitus (11) Chronic calcific pancreatitis (12) Renal insufficiency (13) Acute on chronic pancreatitis (14) DKA (diabetic ketoacidoses) (15) Respiratory failure Review of Systems Review of Symptoms cannot obtain given medical condition Physical Exam Physical Exam General appearance: alert, moderate distress, appears stated age Head: Normocephalic, without obvious abnormality, atraumatic Eyes: conjunctivae/corneas clear. PERRL, EOM's intact. Fundi benign Throat: Lips, mucosa, and tongue normal. Teeth and gums normal Neck: supple, symmetrical, trachea midline, no adenopathy, thyroid: not enlarged, symmetric, no tenderness/mass/nodules, no carotid bruit and no JVD Lungs: clear to auscultation bilaterally Heart: regular rate and rhythm, S1, S2 normal, no murmur, click, rub or gallop Abdomen: soft, non-tender. ventral incisional hernia reducible. Bowel sounds decreased. No masses, no organomegaly Extremities: extremities normal, atraumatic, no cyanosis or edema Pulses: 2+ and symmetric Skin: Skin color, texture, turgor normal. No rashes or lesions Neurologic: Grossly normal Last 24 Hour Vital Signs Date Time Temp Pulse Resp B/P (MAP) Pulse Ox O2 Delivery O2 Flow Rate FiO2 03/27/19 18:00 132 26 164/115 Endotracheal Tube 80 03/27/19 17:09 127 24 80 03/27/19 17:00 127 21 151/93 95 Endotracheal Tube 80 03/27/19 17:00 80 03/27/19 16:02 134 19 100 03/27/19 16:00 97.7 131 19 146/85 100 Endotracheal Tube 100 03/27/19 16:00 Endotracheal Tube 03/27/19 16:00 126 03/27/19 16:00 100 03/27/19 15:00 121 16 149/101 85 Nasal Cannula 4.0 03/27/19 14:00 117 14 122/82 91 Nasal Cannula 4.0 03/27/19 13:00 119 15 155/92 92 Nasal Cannula 4.0 03/27/19 12:00 Room Air 03/27/19 12:00 120 03/27/19 12:00 97.5 124 18 146/86 93 Nasal Cannula 4.0 03/27/19 11:18 120 16 100 Nasal Cannula 2.0 28 120 18 100 03/27/19 11:00 108 10 138/90 95 Nasal Cannula 4.0 03/27/19 10:00 114 15 145/86 99 Nasal Cannula 4.0 03/27/19 09:32 113 11 100 Nasal Cannula 2.0 28 119 14 99 03/27/19 09:31 113 14 99 Nasal Cannula 2.0 28 03/27/19 09:00 118 15 135/68 92 Room Air 03/27/19 08:00 97.8 120 14 128/88 97 Room Air 03/27/19 08:00 Room Air 03/27/19 08:00 114 03/27/19 07:00 132 23 154/113 87 Room Air 03/27/19 06:00 120 14 141/77 98 Room Air 03/27/19 05:00 124 21 138/86 99 Room Air 03/27/19 04:57 97.6 03/27/19 04:00 128 03/27/19 04:00 97.7 130 18 108/58 100 Nasal Cannula 03/27/19 04:00 Room Air 03/27/19 03:00 123 18 120/64 100 Nasal Cannula 03/27/19 02:00 118 13 129/70 99 Nasal Cannula 03/27/19 01:00 123 17 148/80 100 Nasal Cannula 03/27/19 00:54 120 16 100 Room Air 21 124 18 100 03/27/19 00:00 115 11 129/64 100 Nasal Cannula 03/27/19 00:00 118 03/27/19 00:00 Room Air 03/26/19 23:00 128 23 133/75 99 Nasal Cannula 03/26/19 22:00 Room Air 03/26/19 22:00 125 15 134/71 99 Nasal Cannula 03/26/19 21:36 120 03/26/19 21:16 97.6 125 15 149/79 99 Nasal Cannula 2.0 03/26/19 21:05 98.4 126 20 134/78 100 Room Air 21 03/26/19 20:59 98.4 126 20 134/78 100 Room Air Intake and Output 03/26/19 03/27/19 19:00 07:00 Intake Total 1203.0 ml Balance 1203.0 ml IV Total 1203.0 ml # Voids 1 Laboratory Tests Test 03/26/19 19:50 03/26/19 22:00 03/27/19 04:00 03/27/19 06:20 Urine Color Yellow Urine Appearance Cloudy Urine pH 5 (4.5-8.0) Urine Specific [place] 1.010 (1.005-1.035) Urine Protein 3+ (NEGATIVE) H Urine Glucose (UA) 4+ (NEGATIVE) H Urine Ketones 1+ (NEGATIVE) H Urine Blood 4+ (NEGATIVE) H Urine Nitrite Negative (NEGATIVE) Urine Bilirubin Negative (NEGATIVE) Urine Urobilinogen Normal MG/DL (0.0-1.0) Urine Leukocyte Esterase Negative (NEGATIVE) Urine RBC 5-10 /HPF (0 - 2) H Urine WBC 0-2 /HPF (0 - 2) Urine Squamous Epithelial Cells Few /LPF (NONE/OCC) Urine Amorphous Sediment Many /LPF (NONE) H Urine Bacteria Moderate /HPF (NONE) H Urine Yeast Occasional /HPF (NONE) H Glucose Level 866 MG/DL (74-106) *H 586 MG/DL (74-106) *H 466 MG/DL (74-106) #H Prothrombin Time 22.3 SEC (9.30-11.50) H Prothromb Time International Ratio 2.2 (0.9-1.1) H Activated Partial Thromboplast Time 30 SEC (23-33) Sodium Level 137 MMOL/L (136-145) # Potassium Level 5.0 MMOL/L (3.5-5.1) Chloride Level 99 MMOL/L (98-107) Carbon Dioxide Level 7 MMOL/L (21-32) *L Anion Gap 31 mmol/L (5-15) H Blood Urea Nitrogen 17 mg/dL (7-18) Creatinine 3.1 MG/DL (0.55-1.30) H Estimat Glomerular Filtration Rate 20.0 mL/min (>60) Calcium Level 7.5 MG/DL (8.5-10.1) L Phosphorus Level 8.1 MG/DL (2.5-4.9) H Total Bilirubin 1.2 MG/DL (0.2-1.0) H Direct Bilirubin 0.8 MG/DL (0.0-0.3) H Aspartate Amino Transf (AST/SGOT) < 5 U/L (15-37) L Alanine Aminotransferase (ALT/SGPT) 2309 U/L (12-78) H Alkaline Phosphatase 532 U/L (46-116) H Total Protein 7.2 G/DL (6.4-8.2) Albumin 3.2 G/DL (3.4-5.0) L Test 03/27/19 06:30 03/27/19 12:45 03/27/19 14:27 03/27/19 16:20 White Blood Count 8.8 K/UL (4.8-10.8) # Red Blood Count 4.03 M/UL (4.20-5.40) L Hemoglobin 12.4 G/DL (12.0-16.0) Hematocrit 40.8 % (37.0-47.0) Mean Corpuscular Volume 101 FL (80-99) H Mean Corpuscular Hemoglobin 30.7 PG (27.0-31.0) Mean Corpuscular Hemoglobin Concent 30.3 G/DL (32.0-36.0) L Red Cell Distribution Width 14.7 % (11.6-14.8) Platelet Count 25 K/UL (150-450) L Mean Platelet Volume 7.8 FL (6.5-10.1) Neutrophils (%) (Auto) % (45.0-75.0) Lymphocytes (%) (Auto) % (20.0-45.0) Monocytes (%) (Auto) % (1.0-10.0) Eosinophils (%) (Auto) % (0.0-3.0) Basophils (%) (Auto) % (0.0-2.0) Differential Total Cells Counted 100 Neutrophils % (Manual) 90 % (45-75) H Lymphocytes % (Manual) 9 % (20-45) L Monocytes % (Manual) 1 % (1-10) Eosinophils % (Manual) 0 % (0-3) Basophils % (Manual) 0 % (0-2) Band Neutrophils 0 % (0-8) Platelet Estimate Decreased L Platelet Morphology Normal Red Blood Cell Morphology Normal Hemoglobin A1c 13.7 % (4.3-6.0) H Uric Acid 9.7 MG/DL (2.6-7.2) H Phosphorus Level 7.6 MG/DL (2.5-4.9) H 6.2 MG/DL (2.5-4.9) H Magnesium Level 2.0 MG/DL (1.8-2.4) 1.7 MG/DL (1.8-2.4) L Gamma Glutamyl Transpeptidase 865 U/L (5-85) H Triglycerides Level 171 MG/DL (30-150) H Cholesterol Level 75 MG/DL (< 200) LDL Cholesterol 26 mg/dL (<100) HDL Cholesterol 9 MG/DL (40-60) L Cholesterol/HDL Ratio 8.3 (3.3-4.4) H Arterial Blood pH 7.155 (7.350-7.450) 7.167 (7.350-7.450) Arterial Blood Partial Pressure CO2 28.6 mmHg (35.0-45.0) L 43.6 mmHg (35.0-45.0) Arterial Blood Partial Pressure O2 58.6 mmHg (75.0-100.0) L 94.6 mmHg (75.0-100.0) Arterial Blood HCO3 9.9 mmol/L (22.0-26.0) *L 15.4 mmol/L (22.0-26.0) *L Arterial Blood Oxygen Saturation 85.6 % (95-100) *L 95.6 % (95-100) Arterial Blood Base Excess -17.5 (-2-2) *L -12.7 (-2-2) *L Amarjit Test Positive Positive Urine Random Sodium 24 mmol/L (20-110) Urine Opiates Screen Positive (NEGATIVE) H Urine Barbiturates Screen Negative (NEGATIVE) Phencyclidine (PCP) Screen Negative (NEGATIVE) Urine Amphetamines Screen Negative (NEGATIVE) Urine Benzodiazepines Screen Negative (NEGATIVE) Urine Cocaine Screen Negative (NEGATIVE) Urine Marijuana (THC) Screen Negative (NEGATIVE) Sodium Level 136 MMOL/L (136-145) Potassium Level 3.9 MMOL/L (3.5-5.1) Chloride Level 102 MMOL/L (98-107) Carbon Dioxide Level 17 MMOL/L (21-32) L Anion Gap 18 mmol/L (5-15) H Blood Urea Nitrogen 19 mg/dL (7-18) H Creatinine 3.5 MG/DL (0.55-1.30) H Estimat Glomerular Filtration Rate 17.5 mL/min (>60) Glucose Level 187 MG/DL (74-106) #H Calcium Level 6.5 MG/DL (8.5-10.1) L Total Bilirubin 1.2 MG/DL (0.2-1.0) H Direct Bilirubin 0.8 MG/DL (0.0-0.3) H Aspartate Amino Transf (AST/SGOT) < 5 U/L (15-37) L Alanine Aminotransferase (ALT/SGPT) 3845 U/L (12-78) H Alkaline Phosphatase 519 U/L (46-116) H Total Creatine Kinase 394 U/L (26-140) H Total Protein 6.7 G/DL (6.4-8.2) Albumin 3.0 G/DL (3.4-5.0) L Globulin 3.7 g/dL Albumin/Globulin Ratio 0.8 (1.0-2.7) L Microbiology Date/Time Source Procedure Growth Status 03/26/19 19:50 Urine,Clean Catch Urine Culture - Preliminary NO GROWTH Resulted Height (Feet): 5 Height (Inches): 2.00 Weight (Pounds): 176 Medications Current Medications Medications (Trade) Dose Ordered Sig/Greta Route PRN Reason Start Time Stop Time Status Last Admin Dose Admin Acetaminophen (Tylenol) 650 mg Q4H PRN ORAL T>100.5 03/26/19 20:00 04/25/19 19:59 Albuterol/ Ipratropium (Albuterol/ Ipratropium) 3 ml Q4H PRN HHN Shortness of Breath 03/26/19 20:00 03/31/19 19:59 03/27/19 11:19 Chlorhexidine Gluconate (Hetal-Hex 2%) 1 applic DAILY@1999 TOPIC 03/27/19 20:00 04/26/19 19:59 Dextrose (Dextrose 50%) 25 ml Q30M PRN IV HYPOGLYCEMIA 03/26/19 20:00 04/25/19 19:59 Dextrose (Dextrose 50%) 50 ml Q30M PRN IV Hypoglycemia 03/26/19 20:00 04/25/19 19:59 Guaifenesin (Robitussin) 200 mg Q4H PRN ORAL For Cough 03/27/19 11:15 04/26/19 11:14 03/27/19 11:20 Heparin Sodium/ Sodium Chloride (Heparin 1000 units/500ml Premix) 1,000 unit ONCE PRN IV PICC LINE INSERTION 03/27/19 17:15 03/29/19 17:14 Insulin Human Regular (NovoLIN R) 5 units PRN PRN IV BS 200-299 03/26/19 20:00 04/25/19 19:59 03/27/19 15:08 Insulin Human Regular (NovoLIN R) 10 units PRN PRN IV BS=>300 03/26/19 20:00 04/25/19 19:59 03/27/19 13:08 Insulin Human Regular 100 units/ Sodium Chloride 100 ml @ 0 mls/hr Q24H IV 03/27/19 15:30 04/26/19 15:14 03/27/19 18:44 Iopamidol (Isovue-300 100ml) 100 ml NOW PRN INJ Radiology Procedure 03/26/19 17:00 Ipratropium [place] (Atrovent) 500 mcg Q4HRT HHN 03/27/19 19:00 04/01/19 18:59 Lidocaine HCl (Xylocaine 1% 30ml) 30 ml ONCE PRN INJ PICC LINE 03/27/19 17:15 03/29/19 17:14 Lorazepam (Ativan 2mg/ml 1ml) 1 mg Q2H PRN IV agitation 03/27/19 18:00 04/02/19 19:59 Miscellaneous Medication (Insulin Rate Change) 1 ea PRN PRN MISC To Patient Comfort 03/26/19 23:00 04/25/19 22:59 Morphine Sulfate (Morphine Sulfate) 2 mg Q2H PRN IVP Severe Pain (Pain Scale 7-10) 03/27/19 17:15 04/03/19 17:14 Nitroglycerin (Ntg) 0.4 mg Q5MIN X 3 DOSES PRN SL Prn Chest Pain 03/26/19 20:15 04/25/19 20:14 Ondansetron HCl (Zofran) 4 mg Q6H PRN IVP Nausea & Vomiting 03/26/19 20:00 04/25/19 19:59 Pantoprazole (Protonix) 40 mg EVERY 12 HOURS IVP 03/27/19 21:00 04/26/19 20:59 Piperacillin Sod/ Tazobactam Sod 3.375 gm/Sodium Chloride 110 ml @ 27.5 mls/hr EVERY 8 HOURS IVPB 03/27/19 22:00 04/01/19 21:59 Polyethylene Glycol (Miralax) 17 gm DAILYPRN PRN ORAL Constipation 03/26/19 20:00 04/25/19 19:59 Sodium Bicarbonate 150 ml/Dextrose 1,150 ml @ 50 mls/hr Q23H IV 03/27/19 18:00 04/26/19 17:59 Sodium Chloride 1,000 ml @ 150 mls/hr Q6H40M IV 03/26/19 23:00 04/25/19 22:59 03/27/19 12:06 Vancomycin HCl (Vanco rx to dose) 1 ea DAILY MISC 03/27/19 20:00 04/26/19 19:59 Vancomycin HCl 1 gm/Dextrose 275 ml @ 183.708 mls/hr ONCE IVPB 03/27/19 18:00 03/27/19 21:00 03/27/19 18:07 Assessment/Plan Problem List: (1) Abdominal pain Assessment & Plan: 43F presented with abd pain per report 01/04 generalized unable to obtain exam now that she is intubated in distress labs noted ventral incisional hernia reducible abd soft -npo -iv fluids -ng tube to low intermittent suction -will order imaging when stabilized will follow with recs thank you ICD Codes: R10.9 - Unspecified abdominal pain SNOMED: 04075669 (2) Ventral hernia ICD Codes: K43.9 - Ventral hernia without obstruction or gangrene SNOMED: 051481406 (3) Acute on chronic pancreatitis Assessment & Plan: Evidence of acute on chronic pancreatitis. No pseudocyst. Hepatomegaly with severe steatosis. Mild hiatal hernia. abnormal lft's dehydrated dka renal insufficiency -npo iv fluids tailored to uop appreciate endocrine input appreciate home health travel ot input needs urgent/emergency central venous catheter. see note trend labs will follow with recs ICD Codes: K85.90 - Acute pancreatitis without necrosis or infection, unspecified; K86.1 - Other chronic pancreatitis SNOMED: 445801214, [id number] Lefty Meraz Mar 27, 2019 19:24
--- NOTE | 2019-03-27 19:28 | Operative Note - PDOC ---
Operative Note Operative Note Date of Operation/Procedure: Mar 27, 2019 Pre-op Diagnosis: acute pancreatitis; severe Procedure: right femoral central venous catheter insertion Post-op Diagnosis: same as pre-op Surgeon: Lefty Meraz MD Anesthesia: local Specimen: none Complications: none Condition: unstable Estimated Blood Loss: minimal Drains: none Implant(s) used?: No Indications for Procedure 43F critically ill decompensating with acute pancreatitis, abnormal lft's, dka, renal insufficiency needs urgent central venous catheter for fluids, abx, drips. multiple peripheral line attempts without success line medically necessary and indicated Description of Procedure patient made comfortable at bedside. the right groin was prepped and draped in standard surgical fashion. all appropriate protective sterile equipment worn. lidocain 1% with epi infiltrated right femoral vein was cannulated on first stick and venous blood withdrawn. guidewire placed and needle removed. skin incision made around wire and dilator used. triple lumen central venous catheter placed over wire and wire discarded. all ports flushed and aspirated appropriately. line sutured in place and dressings applied. okay to use Lefty Meraz Mar 27, 2019 19:28
--- NOTE | 2019-03-27 20:00 | History and Physical Report ---
DATE OF ADMISSION: 03/26/2019 CHIEF COMPLAINT: The patient is a 43-year-old female, who presents with chief complaint of abdominal pain. HISTORY OF PRESENT ILLNESS: The patient was admitted to [facility] in December 2018 with similar symptoms. Please see history and physical and discharge summary dictated at that time. The patient has a history of 3 abdominal hernia repairs in the past 3 years. Last hernia repair was in May 2018. The patient has a history of chronic pancreatitis. The patient presented to [facility] complaining of a 3-day history of epigastric pain. This is associated with nausea and vomiting. The patient also has experienced some shortness of breath. The patient presented to [facility]. Initial venous blood glucose was found to be 876. Lipase was found to be 475. The patient was admitted with diabetic ketoacidosis and acute on chronic pancreatitis. REVIEW OF SYSTEMS: CONSTITUTIONAL: The patient denies weight loss or weight gain. The patient denies fevers or chills. HEENT: The patient denies ear or throat pain. The patient denies headache. CARDIOVASCULAR: The patient denies palpitations or chest pain. CHEST: The patient complains of shortness of breath as above. The patient denies wheezes. ABDOMEN: The patient complains of epigastric pain. The patient complains of nausea and vomiting. The patient denies diarrhea or constipation. GENITOURINARY: The patient denies dysuria or increased frequency of urination. NEUROMUSCULAR: The patient denies seizures or generalized weakness. PAST MEDICAL HISTORY: Significant for: 1. Type 2 diabetes. 2. Hypertension. 3. Incisional abdominal hernia. PAST SURGICAL HISTORY: Significant for abdominal hernia repair x3, first being in 2016 x2. Last repair was in May 2018 with mesh repair at [facility] in [place]. CURRENT MEDICATIONS: 1. Amlodipine 5 mg 1 tablet p.o. daily. 2. Doxycycline 100 mg p.o. daily. 3. Fluconazole. 4. Liraglutide (Victoza) 0.6 mg subcutaneously daily. 5. Metformin 1000 mg p.o. twice daily. 6. Admelog sliding scale. 7. Basaglar 20 units subcutaneously twice daily. 8. Empagliflozin 10 mg 1 tablet p.o. daily. ALLERGIES: No known drug allergies. SOCIAL HISTORY: The patient is engaged and is disabled. The patient admits to tobacco use of one pack per day. The patient denies alcohol use. PHYSICAL EXAMINATION: VITAL SIGNS: Temperature 98.4, respirations 20, pulse 125, and blood pressure 93/71. GENERAL: The patient is a well-developed, well-nourished, obese female, in no apparent distress. HEENT: Eyes, pupils equal and responsive to light and accommodation. Extraocular movements are intact. NECK: Supple. No lymphadenopathy. CHEST: Lungs are clear to auscultation bilaterally without wheezes or rales. CARDIOVASCULAR: Regular rate. S1, S2 normal without murmurs, rubs, or gallops. ABDOMEN: Soft, tender to palpation in the epigastric region, with decreased bowel sounds. There is tenderness to palpation in the epigastric region. There is no rebound or guarding noted. EXTREMITIES: Negative for clubbing, cyanosis, or edema. RECTAL: Not performed. GENITAL: Not performed. NEUROLOGIC: Cranial nerves II through XII are grossly intact without focal deficits. Motor strength is 5/5 bilaterally intact. Deep tendon reflexes are 2+, plantar. LABORATORY STUDIES: WBC 3.4, hemoglobin 13.7, hematocrit 40.8, and platelets 37,000. Sodium 127, potassium 5.7, chloride 88, CO2 of 11, BUN 15, creatinine 2.5, and glucose 876. Lipase elevated at 475. Liver function tests elevated with ALT of 3277 and alkaline phosphatase elevated at 446. Urinalysis revealed positive acetone and 1+ ketones. Arterial blood gas revealed pH of 7.153, pCO2 of 18, pO2 of 125, bicarb 6.2, oxygen saturation 96.8, base excess -20.6. A CT scan of the abdomen was reported as acute on chronic pancreatitis. ASSESSMENT: This is a 43-year-old female with: 1. Abdominal pain. 2. Acute on chronic pancreatitis. 3. Diabetic ketoacidosis. 4. Hyperglycemia. 5. Renal failure. 6. Diabetes type 2. 7. Hypertension. 8. Ventral hernia. TREATMENT: 1. Abdominal pain/acute pancreatitis. A Gastroenterology consultation has been obtained with Dr. Monty Jaimes. We will follow recommendations of Gastroenterology. The patient is currently NPO. 2. Diabetic ketoacidosis/hyperglycemia. An Endocrinology consultation is pending with Dr. Joseph Saleem. The patient has been placed on a regular insulin drip. We will follow recommendations of Endocrinology. 3. Renal failure. A Nephrology consultation has been obtained with Dr. Lopez. We will follow recommendations of Nephrology. 4. Hypertension. Continue amlodipine as above. 5. Ventral hernia. Marshal Gilbert M.D. DR: Ruba JOB#: [id number] CC:
--- NOTE | 2019-03-27 20:01 | Diagnostic Imaging Report ---
Indication: NG tube placement Comparison: None Single view of the abdomen obtained Findings: NG tube proximal port and tip are both in the stomach lumen in good position. IMPRESSION: NG tube in good position
[2019-03-27] MEDS: Dyna-Hex 2% Top Sol 2oz TOPIC SCH (20:27)
[2019-03-27] MEDS: LORazepam Inj 2mg/ml 1ml IV PRN ×2 (20:44→23:49)
[2019-03-27] MEDS ORDERED: Pantoprazole Inj IVP SCH (21:00)
--- NOTE | 2019-03-27 21:32 | Emergency Room Report ---
History of Present Illness General Chief Complaint: Abdominal Pain Source: Medical Record, PMD Present Illness Allergies: Coded Allergies: No Known Allergies (Unverified , 08/04/18) Patient History Now: No Nursing Documentation-PM Past Medical History: No History, Except For Hx Cardiac Problems: Yes Hx Hypertension: Yes Hx Pacemaker: No Hx Asthma: No Hx COPD: No Hx Diabetes: Yes - Type II Hx Cancer: No Hx Gastrointestinal Problems: Yes - Hernia repair 2019 Hx Dialysis: No Hx Neurological Problems: No Hx Cerebrovascular Accident: No Hx Seizures: No Physical Exam Vital Signs Date Time Temp Pulse Resp B/P (MAP) Pulse Ox O2 Delivery O2 Flow Rate FiO2 03/26/19 16:37 98.4 125 20 93/71 (78) 97 Room Air 03/26/19 17:15 21 03/26/19 21:16 2.0 Procedures Critical Care Time Critical Care Time i. I feel this is a highly complex case requiring extensive working including EKG/Rhythm strip, Xray/CT/US, Blood/urine lab work, repeat exams while in ED, and administration of strong opiates/narcotics for pain control, admission to hospital or close patient follow up. Total time: 30 min bedside evaluation and treatment excludes procedures (EKG). Reason for critical care: AMS, acidosis Possible complications: hypotension, hypertension, DE, shock, arrhythmias, metabolic acidosis, end organ damage, respiratory failure. Interventions: itnerpretation of ABG, intubation Course: I evaluated patient for acidosis, altered mental status. Patient admitted for DKA and pancreatitis. Acidosis not improving. Patient now remains lethargic and altered. Based on presentation to be decision to intubate patient. Patient intubated without difficulty. O2 sats improved. Chest x-ray confirms ET tube placement. Consultations: nursing staff, EMS, family Performed by: Dr Waggoner Tolerated well condition = critical j. because of unstable vital signs this patient had a condition that could potentially threaten life or limb. I feel this is a critical patient who required my full attention while patient was considered critical. Total Critical Care Time excluding procedures was greater than 35 minutes Intubation Intubation : Consent: Emergent Intubation Method: orotracheal Tube Size (cm): 7.5 Medications: Rocuronium Breath Sounds after Intubation: equal Intubation Complications: no complications Post Intubation Xray: Yes Attempts: One Patient Tolerated: Well Complications: None Medical Decision Making Diagnostic Impression: Primary Impression: DKA (diabetic ketoacidoses) Qualified Codes: E13.10 - Other specified diabetes mellitus with ketoacidosis without coma Additional Impressions: Renal insufficiency Acute on chronic pancreatitis ER Course I was asked to evaluate this patient in the ICU. Admitted for DKA as well as pancreatitis and severe acidosis. On assessment patient is altered. ABG shows significant acidosis despite glucose improving. Based on presentation I made decision to intubate patient. Intubated using glide scope. Rocuronium given. ET tube placement confirmed via end-tidal CO2, good breath sounds bilaterally and chest x-ray. O2 sats improving. Case endorsed back to accepting physician Last Vital Signs Date Time Temp Pulse Resp B/P (MAP) Pulse Ox O2 Delivery O2 Flow Rate FiO2 03/27/19 21:04 80 03/27/19 21:00 113 27 138/99 98 Mechanical Ventilator 03/27/19 20:00 98.0 03/27/19 15:00 4.0 Status: improved Disposition: ADMITTED INPATIENT Condition: Critical Referrals: Shree Mcintyre MD (PCP) Wesley Waggoner MD Mar 27, 2019 21:32
--- NOTE | 2019-03-27 21:35 | Diagnostic Imaging Report ---
Indication:Elevated Bun and Creatinine. Technique: Grayscale and duplex Doppler imaging of the kidneys performed. Comparison: None Findings: The size, contour, and echogenicity of both kidneys are within normal limits. There is no hydronephrosis.. The right kidney measures 13.5 cm. in length. The left kidney measures 13.3 cm. in length. The IVC is patent. Urinary bladder is unremarkable. IMPRESSION: Negative ultrasound the kidneys.
--- NOTE | 2019-03-27 21:56 | Diagnostic Imaging Report ---
Indication: Abdominal pain Technique: Grayscale and duplex Doppler imaging of the abdomen performed. Comparison: None Findings: The liver is unremarkable. Doppler interrogation of the main portal vein shows patency with hepatopedal, monophasic flow. There is no biliary ductal dilatation identified. Gallbladder is unremarkable. There is minimal pericholecystic fluid. CBD is 3.6 mm. There demonstrated part of the pancreas, aorta and IVC show no definite abnormalities. The main pancreatic duct is mildly dilated which may reflect pancreatic atrophy. Both kidneys appear unremarkable. There is no hydronephrosis. IMPRESSION: No acute findings Questionable mild pericholecystic fluid
[2019-03-27] MEDS: Piperacillin/Tazobactam 3.375 GM in NS 110 ML IVPB SCH (22:44)
--- NOTE | 2019-03-27 22:55 | Diagnostic Imaging Report ---
Indication: Dyspnea Comparison: 16:14 A single view chest radiograph was obtained. Findings: 17:33. No change demonstrated. Endotracheal tube is at the amrita. Extensive bilateral airspace opacification noted. Lung volumes are low. Heart size is normal. IMPRESSION: Extensive bilateral airspace disease
--- NOTE | 2019-03-27 23:32 | Diagnostic Imaging Report ---
Indication: Dyspnea Comparison: Earlier same day A single view chest radiograph was obtained. Findings: Endotracheal tube is repositioned. The tip of the catheter is about 4 cm above the amrita. NG tube is in good position with nonvisualization of the proximal and distal ports both well within the stomach. Extensive bilateral airspace disease again noted. IMPRESSION: Endotracheal tube and nasogastric tubes in good position
[2019-03-28] VITALS (64 sets, daily range): BP systolic 100–170; BP diastolic 64–118
--- NOTE | 2019-03-28 00:15 | Consultation ---
DATE OF CONSULTATION: 03/27/2019 ENDOCRINOLOGY CONSULTATION CONSULTING PHYSICIAN: Joseph Saleem M.D. REFERRING PHYSICIAN: Shree Mcintyre M.D. REASON FOR CONSULTATION: Diabetic ketoacidosis. HISTORY OF PRESENT ILLNESS: The patient is a pleasant 43-year-old female with history of insulin-dependent diabetes, normally on basaglar 20 units b.i.d. as well as Admelog sliding scale as an outpatient, presented to the hospital with complaint of abdominal pain, nausea, vomiting, which started yesterday. The patient has been short of breath, has been coughing. She does have a history of COPD, also history of pancreatitis, and has history of multiple hernia operations. The patient was found to be in diabetic ketoacidosis and was started on insulin drip, admitted to ICU and was put on insulin drip. PAST MEDICAL HISTORY: 1. Pancreatitis. 2. Diabetes. 3. Hypertension. 4. COPD. PAST SURGICAL HISTORY: Hernia repair. FAMILY HISTORY: Noncontributory. SOCIAL HISTORY: Denies any smoking, alcohol, or drug use. REVIEW OF SYSTEMS: As per HPI. MEDICATIONS: Reviewed and reconciled. Insulin regimen reviewed in history of present illness. LABORATORY DATA: WBC 8.8, hemoglobin 12, hematocrit 40.8, platelets of 25,000. Glucose on presentation was 876. Sodium 127, potassium 5.7, chloride 88, bicarb 11, anion gap 28, creatinine of 2.5, BUN of 15, calcium 8.5, ALT of , alkaline phosphatase of 446, AST is undetectable. HCG is negative. Lipase is 475. PHYSICAL EXAMINATION: GENERAL: She is awake and alert. She is just short of breath. VITAL SIGNS: Blood pressure is 155/92, pulse 119, respiratory rate of 15, temperature 97.5. HEENT: Pupils are reactive to light. Sclerae anicteric. NECK: No JVD. HEART: Regular. LUNGS: Wheezing. ABDOMEN: Positive bowel sounds. EXTREMITIES: Positive for edema. DIAGNOSES: 1. DKA. 2. Pancreatitis. 3. Transaminitis. 4. Bronchospasm. PLAN: 1. Continue . 2. Monitor electrolytes closely. 3. Continue insulin drip. quite high. I would have to keep the insulin drip on board close anion gap. 4. Hold off subcutaneous insulin. 5. We will convert the insulin injection once the anion gap is closed successfully. We will follow closely during hospital stay. Thank you Dr. Mcintyre, for the courtesy of this consultation. Joseph Saleem M.D. DR: Macarena JOB#: [id number] CC:
[2019-03-28] MEDS: Versed 50mg/D5W 100ml 100 ML IV PRN ×2 (00:47→16:45)
[2019-03-28] MEDS: Ipratropium 0.02% Inh Soln 2.5ml UD HHN SCH ×6 (03:27→23:07)
[2019-03-28 05:23] LABS: HEMATOCRIT 29.9 % (37.0-47.0); MEAN CORPUSCULAR VOLUME 93 FL (80-99); PLATELET COUNT 32 K/UL (150-450); RED BLOOD COUNT 3.22 M/UL (4.20-5.40); RED CELL DISTRIBUTION WIDTH 13.8 % (11.6-14.8); WHITE BLOOD COUNT 5.7 K/UL (4.8-10.8)
[2019-03-28 05:48] LABS: INR 1.9 (0.9-1.1)
[2019-03-28 05:51] LABS: AMYLASE 84 U/L (25-115)
[2019-03-28] MEDS ORDERED: Rocuronium Bromide 50mg/5ml Inj IV ONE (05:51)
[2019-03-28 05:55] LABS: ALANINE AMINOTRANSFERASE 4557 U/L (12-78); ALBUMIN 2.3 G/DL (3.4-5.0); ALBUMIN/GLOBULIN RATIO 0.8 (1.0-2.7); ALKALINE PHOSPHATASE 427 U/L (46-116); ANION GAP 14 mmol/L (5-15); ASPARTATE AMINO TRANSFERASE < 5 U/L (15-37); BILIRUBIN,TOTAL 1.2 MG/DL (0.2-1.0); BLOOD UREA NITROGEN 18 mg/dL (7-18); CARBON DIOXIDE 17 MMOL/L (21-32); CHLORIDE 107 MMOL/L (98-107); CREATININE 3.4 MG/DL (0.55-1.30); PHOSPHORUS 3.8 MG/DL (2.5-4.9); POTASSIUM 4.1 MMOL/L (3.5-5.1); SODIUM 138 MMOL/L (136-145)
[2019-03-28 05:57] LABS: CALCIUM 5.6 MG/DL (8.5-10.1)
[2019-03-28] MEDS: Piperacillin/Tazobactam 3.375 GM in NS 110 ML IVPB SCH ×3 (06:08→22:25)
[2019-03-28 06:18] LABS: BILIRUBIN,DIRECT 0.8 MG/DL (0.0-0.3)
--- NOTE | 2019-03-28 07:09 | General Progress Note ---
Assessment/Plan Problem List: (1) DKA (diabetic ketoacidoses) ICD Codes: E11.10 - Type 2 diabetes mellitus with ketoacidosis without coma SNOMED: 974605880, 93749548 Qualifiers: Qualified Codes: E13.10 - Other specified diabetes mellitus with ketoacidosis without coma (2) Diabetes mellitus out of control ICD Codes: E11.65 - Type 2 diabetes mellitus with hyperglycemia SNOMED: 18666411, 290679451 (3) Acute on chronic pancreatitis ICD Codes: K85.90 - Acute pancreatitis without necrosis or infection, unspecified; K86.1 - Other chronic pancreatitis SNOMED: 374759153, 519990331 (4) Respiratory failure ICD Codes: J96.90 - Respiratory failure, unspecified, unspecified whether with hypoxia or hypercapnia SNOMED: 966774526 Assessment/Plan: DKA resolving continue insulin gtt for tight glycemic control Subjective ROS Limited/Unobtainable: Yes Allergies: Coded Allergies: No Known Allergies (Unverified , 08/04/18) Subjective sedated and intubated on insulin gtt - rate reduced Item Value Date Time Bedside Blood Glucose 96 mg/dl 03/28/19 0600 Bedside Blood Glucose 121 mg/dl H 03/28/19 0200 Bedside Blood Glucose 121 mg/dl H 03/27/19 2200 Bedside Blood Glucose 189 mg/dl H 03/27/19 1844 Bedside Blood Glucose 230 mg/dl H 03/27/19 1406 Bedside Blood Glucose 458 mg/dl H 03/27/19 1000 Objective Last 24 Hour Vital Signs Date Time Temp Pulse Resp B/P (MAP) Pulse Ox O2 Delivery O2 Flow Rate FiO2 03/28/19 06:00 109 22 134/89 Mechanical Ventilator 100 03/28/19 06:00 26 Mechanical Ventilator 100 03/28/19 05:30 104 26 100 03/28/19 05:00 107 26 113/81 100 Mechanical Ventilator 100 03/28/19 05:00 26 Mechanical Ventilator 100 03/28/19 04:00 Endotracheal Tube 03/28/19 04:00 25 Mechanical Ventilator 100 03/28/19 04:00 98.4 110 26 120/82 Mechanical Ventilator 100 03/28/19 04:00 110 03/28/19 03:30 110 26 122/78 98 Mechanical Ventilator 100 03/28/19 03:27 112 26 100 Mechanical Ventilator 100 114 27 100 03/28/19 03:00 111 24 127/95 94 Mechanical Ventilator 100 03/28/19 03:00 26 Mechanical Ventilator 100 03/28/19 02:30 110 24 129/99 100 Mechanical Ventilator 100 03/28/19 02:00 111 25 124/89 Mechanical Ventilator 100 03/28/19 02:00 21 Mechanical Ventilator 100 03/28/19 01:30 110 26 100 03/28/19 01:17 98.4 03/28/19 01:00 21 Mechanical Ventilator 100 03/28/19 01:00 114 28 136/92 96 Mechanical Ventilator 100 03/28/19 00:47 32 Mechanical Ventilator 100 03/28/19 00:30 113 26 128/92 97 Mechanical Ventilator 100 03/28/19 00:00 Endotracheal Tube 03/28/19 00:00 98.4 115 25 128/92 97 Mechanical Ventilator 100 03/28/19 00:00 100 03/28/19 00:00 112 03/27/19 23:53 98.0 03/27/19 23:30 132 03/27/19 23:30 118 21 140/94 96 Mechanical Ventilator 100 03/27/19 23:20 117 31 100 03/27/19 23:00 124 24 162/95 95 Mechanical Ventilator 100 03/27/19 22:30 116 28 142/91 95 Mechanical Ventilator 100 03/27/19 22:00 80 03/27/19 22:00 112 26 142/97 95 Mechanical Ventilator 100 03/27/19 21:04 80 03/27/19 21:04 80 03/27/19 21:00 113 27 138/99 98 Mechanical Ventilator 80 03/27/19 21:00 111 26 80 03/27/19 20:30 115 24 158/101 Mechanical Ventilator 80 03/27/19 20:00 80 03/27/19 20:00 Endotracheal Tube 03/27/19 20:00 80 03/27/19 20:00 120 03/27/19 20:00 110 03/27/19 20:00 98.0 109 24 144/95 Mechanical Ventilator 80 03/27/19 19:30 114 24 132/87 98 Mechanical Ventilator 80 03/27/19 19:30 109 24 80 03/27/19 19:00 115 24 132/94 100 Endotracheal Tube 80 03/27/19 18:00 132 26 164/115 Endotracheal Tube 80 03/27/19 17:09 127 24 80 03/27/19 17:00 127 21 151/93 95 Endotracheal Tube 80 03/27/19 17:00 80 03/27/19 16:02 134 19 100 03/27/19 16:00 97.7 131 19 146/85 100 Endotracheal Tube 100 03/27/19 16:00 Endotracheal Tube 03/27/19 16:00 126 03/27/19 16:00 100 03/27/19 15:00 121 16 149/101 85 Nasal Cannula 4.0 03/27/19 14:00 117 14 122/82 91 Nasal Cannula 4.0 03/27/19 13:00 119 15 155/92 92 Nasal Cannula 4.0 03/27/19 12:00 Room Air 03/27/19 12:00 120 03/27/19 12:00 97.5 124 18 146/86 93 Nasal Cannula 4.0 03/27/19 11:18 120 16 100 Nasal Cannula 2.0 28 120 18 100 03/27/19 11:00 108 10 138/90 95 Nasal Cannula 4.0 03/27/19 10:00 114 15 145/86 99 Nasal Cannula 4.0 03/27/19 09:32 113 11 100 Nasal Cannula 2.0 28 119 14 99 03/27/19 09:31 113 14 99 Nasal Cannula 2.0 28 03/27/19 09:00 118 15 135/68 92 Room Air 03/27/19 08:00 97.8 120 14 128/88 97 Room Air 03/27/19 08:00 Room Air 03/27/19 08:00 114 Intake and Output 03/27/19 03/28/19 18:59 06:59 Intake Total 1877.185 ml 3494.77 ml Output Total 250 ml 700 ml Balance 1627.185 ml 2794.77 ml Intake Oral 50 ml IV Total 1827.185 ml 3494.77 ml Output Urine Total 250 ml 700 ml Laboratory Tests 03/27/19 12:45: Arterial Blood pH 7.155*L, Arterial Blood Partial Pressure CO2 28.6L, Arterial Blood Partial Pressure O2 58.6L, Arterial Blood HCO3 9.9*L, Arterial Blood Oxygen Saturation 85.6*L, Arterial Blood Base Excess -17.5*L, Amarjit Test Positive 03/27/19 14:27: Urine Random Sodium 24, Urine Opiates Screen PositiveH, Urine Barbiturates Screen Negative, Phencyclidine (PCP) Screen Negative, Urine Amphetamines Screen Negative, Urine Benzodiazepines Screen Negative, Urine Cocaine Screen Negative, Urine Marijuana (THC) Screen Negative 03/27/19 16:20: Arterial Blood pH 7.167*L, Arterial Blood Partial Pressure CO2 43.6, Arterial Blood Partial Pressure O2 94.6, Arterial Blood HCO3 15.4*L, Arterial Blood Oxygen Saturation 95.6, Arterial Blood Base Excess -12.7*L, Amarjit Test Positive , Sodium Level 136, Potassium Level 3.9, Chloride Level 102, Carbon Dioxide Level 17L, Anion Gap 18H, Blood Urea Nitrogen 19H, Creatinine 3.5H, Estimat Glomerular Filtration Rate 17.5, Glucose Level 187#H, Calcium Level 6.5L, Phosphorus Level 6.2H, Magnesium Level 1.7L, Total Bilirubin 1.2H, Direct Bilirubin 0.8H, Aspartate Amino Transf (AST/SGOT) < 5L, Alanine Aminotransferase (ALT/SGPT) 3845H, Alkaline Phosphatase 519H, Total Creatine Kinase 394H, Total Protein 6.7, Albumin 3.0L, Globulin 3.7, Albumin/Globulin Ratio 0.8L 03/27/19 18:15: Arterial Blood pH 7.180*L, Arterial Blood Partial Pressure CO2 46.1H, Arterial Blood Partial Pressure O2 < 45.3*L, Arterial Blood HCO3 16.8*L, Arterial Blood Oxygen Saturation 72.9*L, Arterial Blood Base Excess -11.1*L, Amarjit Test Positive 03/27/19 22:00: Arterial Blood pH 7.221*L, Arterial Blood Partial Pressure CO2 38.8, Arterial Blood Partial Pressure O2 52.4L, Arterial Blood HCO3 15.6*L, Arterial Blood Oxygen Saturation 83.1*L, Arterial Blood Base Excess -11.4*L, Amarjit Test Positive 03/28/19 02:45: White Blood Count 5.7, Red Blood Count 3.22L, Hemoglobin 10.0L, Hematocrit 29.9L , Mean Corpuscular Volume 93, Mean Corpuscular Hemoglobin 31.1H, Mean Corpuscular Hemoglobin Concent 33.5, Red Cell Distribution Width 13.8, Platelet Count 32L, Mean Platelet Volume 11.1H, Neutrophils (%) (Auto) , Lymphocytes (%) (Auto) , Monocytes (%) (Auto) , Eosinophils (%) (Auto) , Basophils (%) (Auto) , Neutrophils % (Manual) [Pending], Lymphocytes % (Manual) [Pending], Platelet Estimate [Pending], Platelet Morphology [Pending], Erythrocyte Sedimentation Rate 32H, Prothrombin Time 19.1H, Prothromb Time International Ratio 1.9H, Activated Partial Thromboplast Time 30, Sodium Level 138, Potassium Level 4.1, Chloride Level 107, Carbon Dioxide Level 17L, Anion Gap 14, Blood Urea Nitrogen 18, Creatinine 3.4H, Estimat Glomerular Filtration Rate 18.1, Glucose Level 109H , Lactic Acid Level 2.30H, Calcium Level 5.6*L, Phosphorus Level 3.8, Magnesium Level 1.3L, Total Bilirubin 1.2H, Direct Bilirubin 0.8H, Aspartate Amino Transf (AST/SGOT) < 5L, Alanine Aminotransferase (ALT/SGPT) 4557H, Alkaline Phosphatase 427H, C-Reactive Protein, Quantitative 9.6H, Pro-B-Type Natriuretic Peptide 3797H, Total Protein 5.3L, Albumin 2.3L, Globulin 3.0, Albumin/Globulin Ratio 0.8L, Amylase Level 84, Lipase 82, Thyroid Stimulating Hormone (TSH) 0.423 Height (Feet): 5 Height (Inches): 2.00 Weight (Pounds): 178 General Appearance: other - intubated EENT: other - ETT Neck: normal alignment Cardiovascular: tachycardia Respiratory/Chest: decreased breath sounds Abdomen: normal bowel sounds Edema: 1+ Arm (L), 1+ Arm (R), 1+ Leg (L), 1+ Leg (R), 1+ Pedal (L), 1+ Pedal ( R), 1+ Generalized Objective Current Medications Medications (Trade) Dose Ordered Sig/Greta Route PRN Reason Start Time Stop Time Status Last Admin Dose Admin Acetaminophen (Tylenol) 650 mg Q4H PRN ORAL T>100.5 03/26/19 20:00 04/25/19 19:59 Albuterol/ Ipratropium (Albuterol/ Ipratropium) 3 ml Q4H PRN HHN Shortness of Breath 03/26/19 20:00 03/31/19 19:59 03/27/19 11:19 Chlorhexidine Gluconate (Hetal-Hex 2%) 1 applic DAILY@2000 TOPIC 03/27/19 20:00 04/26/19 19:59 03/27/19 20:27 Dextrose (Dextrose 50%) 25 ml Q30M PRN IV HYPOGLYCEMIA 03/26/19 20:00 04/25/19 19:59 Dextrose (Dextrose 50%) 50 ml Q30M PRN IV Hypoglycemia 03/26/19 20:00 04/25/19 19:59 Fentanyl Citrate 1000 mcg/Sodium Chloride 100 ml @ 0 mls/hr Q24H PRN IV Agitation 03/28/19 00:15 04/04/19 00:14 Guaifenesin (Robitussin) 200 mg Q4H PRN ORAL For Cough 03/27/19 11:15 04/26/19 11:14 03/27/19 22:54 Heparin Sodium/ Sodium Chloride (Heparin 1000 units/500ml Premix) 1,000 unit ONCE PRN IV PICC LINE INSERTION 03/27/19 17:15 03/29/19 17:14 Insulin Human Regular (NovoLIN R) 5 units PRN PRN IV BS 200-299 03/26/19 20:00 04/25/19 19:59 03/27/19 19:32 Insulin Human Regular (NovoLIN R) 10 units PRN PRN IV BS=>300 03/26/19 20:00 04/25/19 19:59 03/27/19 13:08 Insulin Human Regular 100 units/ Sodium Chloride 100 ml @ 0 mls/hr Q24H IV 03/27/19 15:30 04/26/19 15:14 03/27/19 18:44 Iopamidol (Isovue-300 100ml) 100 ml NOW PRN INJ Radiology Procedure 03/26/19 17:00 Ipratropium [place] (Atrovent) 500 mcg Q4HRT HHN 03/27/19 19:00 04/01/19 18:59 03/28/19 03:27 Lidocaine HCl (Xylocaine 1% 30ml) 30 ml ONCE PRN INJ PICC LINE 03/27/19 17:15 03/29/19 17:14 Lorazepam (Ativan 2mg/ml 1ml) 1 mg Q2H PRN IV agitation 03/27/19 18:00 04/02/19 19:59 03/27/19 23:49 Midazolam HCl 100 ml @ 0 mls/hr Q24H PRN IV Agitation 03/28/19 00:15 04/04/19 00:14 03/28/19 00:47 Miscellaneous Medication (Insulin Rate Change) 1 ea PRN PRN MISC To Patient Comfort 03/26/19 23:00 04/25/19 22:59 03/28/19 05:00 Morphine Sulfate (Morphine Sulfate) 2 mg Q2H PRN IVP Severe Pain (Pain Scale 7-10) 03/27/19 17:15 04/03/19 17:14 03/27/19 23:23 Nitroglycerin (Ntg) 0.4 mg Q5MIN X 3 DOSES PRN SL Prn Chest Pain 03/26/19 20:15 04/25/19 20:14 Ondansetron HCl (Zofran) 4 mg Q6H PRN IVP Nausea & Vomiting 03/26/19 20:00 04/25/19 19:59 Pantoprazole (Protonix) 40 mg EVERY 12 HOURS IVP 03/27/19 21:00 04/26/19 20:59 03/27/19 20:27 Piperacillin Sod/ Tazobactam Sod 3.375 gm/Sodium Chloride 110 ml @ 27.5 mls/hr EVERY 8 HOURS IVPB 03/27/19 22:00 04/01/19 21:59 03/28/19 06:08 Polyethylene Glycol (Miralax) 17 gm DAILYPRN PRN ORAL Constipation 03/26/19 20:00 04/25/19 19:59 Sodium Bicarbonate 150 ml/Dextrose 1,150 ml @ 60 mls/hr [id number] IV 03/28/19 00:00 04/26/19 00:00 03/28/19 00:50 Vancomycin HCl (Vanco rx to dose) 1 ea DAILY MISC 03/27/19 20:00 04/26/19 19:59 Joseph Saleem MD Mar 28, 2019 07:09
[2019-03-28] MEDS: Pantoprazole 80 MG in NS 250 ML IV SCH ×2 (09:29→19:49)
[2019-03-28] MEDS: Morphine Sulfate 4mg/ml Inj (IV USE ONLY) IVP PRN ×2 (10:17→18:21)
[2019-03-28 10:49] LABS: ANION GAP 13 mmol/L (5-15); BLOOD UREA NITROGEN 20 mg/dL (7-18); CALCIUM 5.6 MG/DL (8.5-10.1); CARBON DIOXIDE 20 MMOL/L (21-32); CHLORIDE 105 MMOL/L (98-107); POTASSIUM 4.1 MMOL/L (3.5-5.1); SODIUM 137 MMOL/L (136-145)
[2019-03-28 10:54] LABS: CREATINE KINASE 293 U/L (26-308)
[2019-03-28] MEDS ORDERED: Calcium Gluconate 10% 2 GM in NS 110 ML IVPB SCH (11:00)
[2019-03-28] MEDS ORDERED: Tubing IV Secondary IV ONE (11:05)
[2019-03-28] MEDS ORDERED: NS 275ml ONE (11:05)
[2019-03-28] MEDS: Phytonadione 10 mg/mL 1ml amp SUBQ SCH (11:12)
[2019-03-28] MEDS ORDERED: NovoLOG Insulin Flexpen SUBQ SCH (12:00)
[2019-03-28] MEDS: Levemir Flexpen SUBQ SCH ×2 (12:09→18:10)
--- NOTE | 2019-03-28 12:41 | Cardiology Report ---
APPROVED REPORT EXAM: Two-dimensional and M-mode echocardiogram. INDICATION Congestive Heart Failure 2D DIMENSIONS IVSd1.6 (0.7-1.1cm) LVDd3.6 (3.8-5.6cm) PWd1.1 (0.7-1.1cm) IVSs1.9 cm LVDs2.2 (2.5-4.0cm) PWs1.4 cm M-Mode DIMENSIONS Left Atrium (MM)2.9 (1.6-4.0cm) Aortic Root2.2 (2.0-3.7cm) Aortic Cusp Exc.1.4 (1.5-2.0cm) Normal left ventricular chamber size, systolic function. Hyperkinetic wall motion. Left ventricular ejection fraction estimated to be 55-60 %. Moderate left ventricular hypertrophy by 2D. All other cardiac chamber sizes are within normal limits. Focal aortic valve sclerosis with adequate cusp excursion. Mitral annulus and aortic root calcification. Pulmonic valve not well visualized. IVC at normal size with slight physiologic collapse. A color flow and spectral Doppler study was performed and revealed: No aortic regurgitation. Mild mitral regurgitation. reduced left ventricular relaxation c/w impaired relaxation diastolic dysfunction. Trace tricuspid regurgitation. Tricuspid systolic velocities suggests peak right ventricular systolic pressure of 30 mmHg.
--- NOTE | 2019-03-28 13:24 | Nephrology Progress Note ---
Assessment/Plan Problem List: (1) Acute renal failure (ARF) (2) Respiratory failure (3) DKA (diabetic ketoacidoses) (4) LFT elevation (5) Electrolyte imbalance Assessment: Low Mag and Low Ca (6) Thrombocytopathia Assessment Acute respiratory failure Acute renal failure high LFTs, thrombocytopenia ? HUS ? 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 Ca and Mag IV Vit K Echo Hyperkinetic wall motion. Left ventricular ejection fraction estimated to be 55-60 %. Moderate left ventricular hypertrophy by 2D. Abd CT: Evidence of acute on chronic pancreatitis. No pseudocyst. Hepatomegaly with severe steatosis. Subjective ROS Limited/Unobtainable: Yes Objective Objective Last 24 Hour Vital Signs Date Time Temp Pulse Resp B/P (MAP) Pulse Ox O2 Delivery O2 Flow Rate FiO2 03/28/19 13:00 108 29 110/69 93 Mechanical Ventilator 100 03/28/19 13:00 28 Mechanical Ventilator 100 03/28/19 12:45 110 28 115/65 92 Mechanical Ventilator 100 03/28/19 12:30 29 Mechanical Ventilator 100 03/28/19 12:30 115 29 146/117 91 Mechanical Ventilator 100 03/28/19 12:15 104 26 115/64 97 Mechanical Ventilator 100 03/28/19 12:00 Endotracheal Tube 03/28/19 12:00 28 Mechanical Ventilator 100 03/28/19 12:00 98.8 107 25 114/68 96 Mechanical Ventilator 100 03/28/19 12:00 109 03/28/19 11:45 108 26 116/69 98 Mechanical Ventilator 100 03/28/19 11:41 114 31 97 Mechanical Ventilator 100 111 30 100 03/28/19 11:30 111 32 112/72 90 Mechanical Ventilator 100 03/28/19 11:15 116 28 134/73 90 Mechanical Ventilator 100 03/28/19 11:00 30 Mechanical Ventilator 100 03/28/19 11:00 116 30 122/81 90 Mechanical Ventilator 100 03/28/19 10:45 119 29 110/72 90 Mechanical Ventilator 100 03/28/19 10:30 131 29 170/72 86 Mechanical Ventilator 100 03/28/19 10:15 124 30 135/91 88 Mechanical Ventilator 100 03/28/19 10:15 30 Mechanical Ventilator 03/28/19 10:00 32 Mechanical Ventilator 100 03/28/19 10:00 122 27 122/73 93 Mechanical Ventilator 100 03/28/19 09:45 130 28 133/112 86 Mechanical Ventilator 100 03/28/19 09:45 26 Mechanical Ventilator 100 03/28/19 09:34 28 Mechanical Ventilator 100 03/28/19 09:30 117 27 130/87 99 Mechanical Ventilator 100 03/28/19 09:15 114 23 136/90 99 Mechanical Ventilator 100 03/28/19 09:00 116 20 126/93 99 Mechanical Ventilator 100 03/28/19 09:00 37 Mechanical Ventilator 100 03/28/19 08:55 127 34 134/90 89 Mechanical Ventilator 100 03/28/19 08:30 113 23 134/95 99 Mechanical Ventilator 100 03/28/19 08:00 98.8 111 25 126/80 100 Mechanical Ventilator 100 03/28/19 08:00 26 Mechanical Ventilator 100 03/28/19 08:00 112 03/28/19 08:00 Endotracheal Tube 03/28/19 07:30 112 26 123/81 100 Mechanical Ventilator 100 03/28/19 07:16 113 30 97 Mechanical Ventilator 100 119 28 100 03/28/19 07:00 125 29 154/95 97 Mechanical Ventilator 100 03/28/19 07:00 26 Mechanical Ventilator 100 03/28/19 06:00 109 22 134/89 Mechanical Ventilator 100 03/28/19 06:00 26 Mechanical Ventilator 100 03/28/19 05:30 104 26 100 03/28/19 05:00 107 26 113/81 100 Mechanical Ventilator 100 03/28/19 05:00 26 Mechanical Ventilator 100 03/28/19 04:00 Endotracheal Tube 03/28/19 04:00 25 Mechanical Ventilator 100 03/28/19 04:00 98.4 110 26 120/82 Mechanical Ventilator 100 03/28/19 04:00 110 03/28/19 03:30 110 26 122/78 98 Mechanical Ventilator 100 03/28/19 03:27 112 26 100 Mechanical Ventilator 100 114 27 100 03/28/19 03:00 111 24 127/95 94 Mechanical Ventilator 100 03/28/19 03:00 26 Mechanical Ventilator 100 03/28/19 02:30 110 24 129/99 100 Mechanical Ventilator 100 03/28/19 02:00 111 25 124/89 Mechanical Ventilator 100 03/28/19 02:00 21 Mechanical Ventilator 100 03/28/19 01:30 110 26 100 03/28/19 01:17 98.4 03/28/19 01:00 21 Mechanical Ventilator 100 03/28/19 01:00 114 28 136/92 96 Mechanical Ventilator 100 03/28/19 00:47 32 Mechanical Ventilator 100 03/28/19 00:30 113 26 128/92 97 Mechanical Ventilator 100 03/28/19 00:00 Endotracheal Tube 03/28/19 00:00 98.4 115 25 128/92 97 Mechanical Ventilator 100 03/28/19 00:00 100 03/28/19 00:00 112 03/27/19 23:53 98.0 03/27/19 23:30 132 03/27/19 23:30 118 21 140/94 96 Mechanical Ventilator 100 03/27/19 23:20 117 31 100 03/27/19 23:00 124 24 162/95 95 Mechanical Ventilator 100 03/27/19 22:30 116 28 142/91 95 Mechanical Ventilator 100 03/27/19 22:00 80 03/27/19 22:00 112 26 142/97 95 Mechanical Ventilator 100 03/27/19 21:04 80 03/27/19 21:04 80 03/27/19 21:00 113 27 138/99 98 Mechanical Ventilator 80 03/27/19 21:00 111 26 80 03/27/19 20:30 115 24 158/101 Mechanical Ventilator 80 03/27/19 20:00 80 03/27/19 20:00 Endotracheal Tube 03/27/19 20:00 80 03/27/19 20:00 120 03/27/19 20:00 110 03/27/19 20:00 98.0 109 24 144/95 Mechanical Ventilator 80 03/27/19 19:30 114 24 132/87 98 Mechanical Ventilator 80 03/27/19 19:30 109 24 80 03/27/19 19:00 115 24 132/94 100 Endotracheal Tube 80 03/27/19 18:00 132 26 164/115 Endotracheal Tube 80 03/27/19 17:09 127 24 80 03/27/19 17:00 127 21 151/93 95 Endotracheal Tube 80 03/27/19 17:00 80 03/27/19 16:02 134 19 100 03/27/19 16:00 97.7 131 19 146/85 100 Endotracheal Tube 100 03/27/19 16:00 Endotracheal Tube 03/27/19 16:00 126 03/27/19 16:00 100 03/27/19 15:00 121 16 149/101 85 Nasal Cannula 4.0 03/27/19 14:00 117 14 122/82 91 Nasal Cannula 4.0 Intake and Output 03/27/19 03/28/19 19:00 07:00 Intake Total 2017.655 ml 3240.0 ml Output Total 270 ml 730 ml Balance 1747.655 ml 2510.0 ml Intake Oral 50 ml IV Total 1967.655 ml 3240.0 ml Output Urine Total 270 ml 730 ml Laboratory Tests 03/27/19 14:27: Urine Random Sodium 24, Urine Opiates Screen PositiveH, Urine Barbiturates Screen Negative, Phencyclidine (PCP) Screen Negative, Urine Amphetamines Screen Negative, Urine Benzodiazepines Screen Negative, Urine Cocaine Screen Negative, Urine Marijuana (THC) Screen Negative 03/27/19 16:20: Arterial Blood pH 7.167*L, Arterial Blood Partial Pressure CO2 43.6, Arterial Blood Partial Pressure O2 94.6, Arterial Blood HCO3 15.4*L, Arterial Blood Oxygen Saturation 95.6, Arterial Blood Base Excess -12.7*L, Amarjit Test Positive , Sodium Level 136, Potassium Level 3.9, Chloride Level 102, Carbon Dioxide Level 17L, Anion Gap 18H, Blood Urea Nitrogen 19H, Creatinine 3.5H, Estimat Glomerular Filtration Rate 17.5, Glucose Level 187#H, Calcium Level 6.5L, Phosphorus Level 6.2H, Magnesium Level 1.7L, Total Bilirubin 1.2H, Direct Bilirubin 0.8H, Aspartate Amino Transf (AST/SGOT) < 5L, Alanine Aminotransferase (ALT/SGPT) 3845H, Alkaline Phosphatase 519H, Total Creatine Kinase 394H, Total Protein 6.7, Albumin 3.0L, Globulin 3.7, Albumin/Globulin Ratio 0.8L 03/27/19 18:15: Arterial Blood pH 7.180*L, Arterial Blood Partial Pressure CO2 46.1H, Arterial Blood Partial Pressure O2 < 45.3*L, Arterial Blood HCO3 16.8*L, Arterial Blood Oxygen Saturation 72.9*L, Arterial Blood Base Excess -11.1*L, Amarjit Test Positive 03/27/19 22:00: Arterial Blood pH 7.221*L, Arterial Blood Partial Pressure CO2 38.8, Arterial Blood Partial Pressure O2 52.4L, Arterial Blood HCO3 15.6*L, Arterial Blood Oxygen Saturation 83.1*L, Arterial Blood Base Excess -11.4*L, Amarjit Test Positive 03/28/19 02:45: White Blood Count 5.7, Red Blood Count 3.22L, Hemoglobin 10.0L, Hematocrit 29.9L , Mean Corpuscular Volume 93, Mean Corpuscular Hemoglobin 31.1H, Mean Corpuscular Hemoglobin Concent 33.5, Red Cell Distribution Width 13.8, Platelet Count 32L, Mean Platelet Volume 11.1H, Neutrophils (%) (Auto) , Lymphocytes (%) (Auto) , Monocytes (%) (Auto) , Eosinophils (%) (Auto) , Basophils (%) (Auto) , Differential Total Cells Counted 100, Neutrophils % (Manual) 88H, Lymphocytes % (Manual) 9L, Monocytes % (Manual) 3, Eosinophils % (Manual) 0, Basophils % ( Manual) 0, Band Neutrophils 0, Platelet Estimate DecreasedL, Platelet Morphology Normal, Hypochromasia 1+, Spherocytes 1+, Erythrocyte Sedimentation Rate 32H, Prothrombin Time 19.1H, Prothromb Time International Ratio 1.9H, Activated Partial Thromboplast Time 30, Sodium Level 138, Potassium Level 4.1, Chloride Level 107, Carbon Dioxide Level 17L, Anion Gap 14, Blood Urea Nitrogen 18, Creatinine 3.4H, Estimat Glomerular Filtration Rate 18.1, Glucose Level 109H , Lactic Acid Level 2.30H, Uric Acid 9.2H, Calcium Level 5.6*L, Phosphorus Level 3.8, Magnesium Level 1.3L, Total Bilirubin 1.2H, Direct Bilirubin 0.8H, Aspartate Amino Transf (AST/SGOT) < 5L, Alanine Aminotransferase (ALT/SGPT) 4557H, Alkaline Phosphatase 427H, Lactate Dehydrogenase > 4000H, Total Creatine Kinase 293, C-Reactive Protein, Quantitative 9.6H, Pro-B-Type Natriuretic Peptide 3797H, Total Protein 5.3L, Albumin 2.3L, Globulin 3.0, Albumin/Globulin Ratio 0.8L, Amylase Level 84, Lipase 82, Thyroid Stimulating Hormone (TSH) 0.423 03/28/19 09:13: Arterial Blood pH 7.321L, Arterial Blood Partial Pressure CO2 33.8L, Arterial Blood Partial Pressure O2 84.1, Arterial Blood HCO3 17.1*L, Arterial Blood Oxygen Saturation 95.7, Arterial Blood Base Excess -8.1L, Amarjit Test Positive 03/28/19 10:05: Sodium Level 137, Potassium Level 4.1, Chloride Level 105, Carbon Dioxide Level 20L, Anion Gap 13, Blood Urea Nitrogen 20H, Creatinine 4.0H, Estimat Glomerular Filtration Rate 14.9, Glucose Level 90, Lactic Acid Level 2.70H, Calcium Level 5.6*L Height (Feet): 5 Height (Inches): 2.00 Weight (Pounds): 178 General Appearance: mild distress EENT: other - now intubated on vent Cardiovascular: tachycardia Respiratory/Chest: decreased breath sounds Abdomen: distended Amrit Lopez MD Mar 28, 2019 13:24
--- NOTE | 2019-03-28 14:28 | GI Initial Consult Note ---
History of Present Illness General Date patient seen: Mar 28, 2019 Time patient seen: 14:09 Reason for Hospitalization: Abdominal Pain Referring physician: LEANNA FELDMAN Reason for Consultation: [employer] Present Illness HPI 43-year-old female presents ED for evaluation. Complaining of abdominal pain with nausea and vomiting started today. Also states she has been short of breath with coughing. History of COPD. Pain is sharp, 9 out of 10, nonradiating. Has a history of pancreatitis. Also states that she has had multiple hernia operations. Last one was in May of this year. States that appears to be bulging again. Is a diabetic. Denies fevers or chills. Denies chest pain. No other aggravating relieving factors. Denies any other associated symptoms. GI consulted for chronic pancreatitis. ROS limited, patient intubated with an ICU no apparent distress with no active signs and symptoms of nausea vomiting. Discussion with RN reported that the patient had episodes of coffee-ground emesis. Patient has a history of early nonnecrotizing acute pancreatitis as noted on a CT scan during her previous admission. In addition. Patient does have history of a multiple abdominal hernia repairs, last one noted back in May 2018. Labs reviewed; hemoglobin 10.0 hematocrit 29.9 platelet count of 32, WBC 5.7, total bilirubin 1.2 GGT 865, AST less than 5, ALT 2309, alkaline phosphatase 532, lipase 82. Home Meds Active Scripts Triamcinolone (Triamcinolone Acetonide) 5 Gm Paste..g., 1 EA APPLIC EVERY 12 HOURS for 7 Days, TUBE Prov:Lavelle Diggs MD 08/10/18 Metformin Hcl* (GLUCOPHAGE*) 500 Mg Tablet, 1000 MG ORAL BID for 30 Days, TAB Prov:Lavelle Diggs MD 08/10/18 Nystatin* (NYSTATIN*) 15 Gm Cream..g., 1 APPLIC TOPIC THREE TIMES A DAY, #15 GM 2 Refills Prov:Stacie Ortiz 08/04/18 Reported Medications Cephalexin* (KEFLEX*) 500 Mg Tablet, 500 MG ORAL EVERY 6 HOURS, CAP 12/29/18 Benzonatate* (BENZONATATE*) 200 Mg Capsule, 100 MG ORAL THREE TIMES A DAY PRN for For Cough, PERLFanny 12/29/18 [Admelog] No Conflict Check 12/29/18 [Basaglar] No Conflict Check, 20 UNITS SUBQ BID 12/29/18 Ketoconazole (Ketoconazole) 15 Gm Cream..g., 1 APPLIC TOPIC DAILYPRN, APPLIC 10/01/18 [Empagliflozin] No Conflict Check, 10 MG PO DAILY 10/01/18 Liraglutide (VICTOZA 2-CHAZ) 0.6 Mg/0.1 Ml Pen.injctr, 0.6 MG SUBQ DAILY, EA 10/01/18 Fluconazole (FLUCONAZOLE) 100 Mg Tablet, 100 MG ORAL BID, TAB 10/01/18 Doxycycline Hyclate* (VIBRAMYCIN*) 100 Mg Capsule, 100 MG ORAL DAILY, CAP 10/01/18 Gabapentin* (GABAPENTIN*) 100 Mg Capsule, 300 MG ORAL BID, CAP 10/01/18 Amlodipine Besylate* (AMLODIPINE BESYLATE*) 5 Mg Tablet, 5 MG ORAL DAILY, TAB 06/18/18 [Admelog] No Conflict Check, SUBQ Sliding Scale 12/18/17 Med list reviewed/reconciled: Yes Allergies: Coded Allergies: No Known Allergies (Unverified , 08/04/18) Patient History Limited by: medical condition History Provided By: Medical Record PMH Narrative Past Medical History: DM, HTN Past Surgical History: other - hernia repair Pertinent Family History: none Social History: Denies: smoking, alcohol use, drug use Now: No Immunizations: UTD Reviewed Nursing Documentation: PMH: Agreed; PSxH: Agreed Nursing Documentation-[facility] Past Medical History: No History, Except For Hx Cardiac Problems: No Hx Hypertension: Yes Hx Pacemaker: No Hx Asthma: No Hx COPD: No Hx Diabetes: Yes - Type II Hx Cancer: No Hx Gastrointestinal Problems: Yes - Hernia repair 2019 Hx Dialysis: No Hx Neurological Problems: No Hx Cerebrovascular Accident: No Hx Seizures: No Social History: Denies: smoking, alcohol use, drug use, other Review of Systems All Other Systems: negative except mentioned in HPI Physical Exam Vital Signs Date Time Temp Pulse Resp B/P (MAP) Pulse Ox O2 Delivery O2 Flow Rate FiO2 03/26/19 16:37 98.4 125 20 93/71 (78) 97 Room Air 03/26/19 17:15 21 03/26/19 21:16 2.0 Sp02 EP Interpretation: reviewed, normal Labs Laboratory Tests Test 03/27/19 14:27 03/27/19 16:20 12/1/19 18:15 03/27/19 22:00 Urine Random Sodium 24 mmol/L (20-110) Urine Opiates Screen Positive (NEGATIVE) H Urine Barbiturates Screen Negative (NEGATIVE) Phencyclidine (PCP) Screen Negative (NEGATIVE) Urine Amphetamines Screen Negative (NEGATIVE) Urine Benzodiazepines Screen Negative (NEGATIVE) Urine Cocaine Screen Negative (NEGATIVE) Urine Marijuana (THC) Screen Negative (NEGATIVE) Arterial Blood pH 7.167 (7.350-7.450) 7.180 (7.350-7.450) 7.221 (7.350-7.450) Arterial Blood Partial Pressure CO2 43.6 mmHg (35.0-45.0) 46.1 mmHg (35.0-45.0) H 38.8 mmHg (35.0-45.0) Arterial Blood Partial Pressure O2 94.6 mmHg (75.0-100.0) < 45.3 mmHg (75.0-100.0) 52.4 mmHg (75.0-100.0) L Arterial Blood HCO3 15.4 mmol/L (22.0-26.0) *L 16.8 mmol/L (22.0-26.0) *L 15.6 mmol/L (22.0-26.0) *L Arterial Blood Oxygen Saturation 95.6 % (95-100) 72.9 % (95-100) *L 83.1 % (95-100) *L Arterial Blood Base Excess -12.7 (-2-2) *L -11.1 (-2-2) *L -11.4 (-2-2) *L Amarjit Test Positive Positive Positive Sodium Level 136 MMOL/L (136-145) Potassium Level 3.9 MMOL/L (3.5-5.1) Chloride Level 102 MMOL/L (98-107) Carbon Dioxide Level 17 MMOL/L (21-32) L Anion Gap 18 mmol/L (5-15) H Blood Urea Nitrogen 19 mg/dL (7-18) H Creatinine 3.5 MG/DL (0.55-1.30) H Estimat Glomerular Filtration Rate 17.5 mL/min (>60) Glucose Level 187 MG/DL (74-106) #H Calcium Level 6.5 MG/DL (8.5-10.1) L Phosphorus Level 6.2 MG/DL (2.5-4.9) H Magnesium Level 1.7 MG/DL (1.8-2.4) L Total Bilirubin 1.2 MG/DL (0.2-1.0) H Direct Bilirubin 0.8 MG/DL (0.0-0.3) H Aspartate Amino Transf (AST/SGOT) < 5 U/L (15-37) L Alanine Aminotransferase (ALT/SGPT) 3845 U/L (12-78) H Alkaline Phosphatase 519 U/L (46-116) H Total Creatine Kinase 394 U/L (26-140) H Total Protein 6.7 G/DL (6.4-8.2) Albumin 3.0 G/DL (3.4-5.0) L Globulin 3.7 g/dL Albumin/Globulin Ratio 0.8 (1.0-2.7) L Test 03/28/19 02:45 03/28/19 09:13 03/28/19 10:05 White Blood Count 5.7 K/UL (4.8-10.8) Red Blood Count 3.22 M/UL (4.20-5.40) L Hemoglobin 10.0 G/DL (12.0-16.0) L Hematocrit 29.9 % (37.0-47.0) L Mean Corpuscular Volume 93 FL (80-99) Mean Corpuscular Hemoglobin 31.1 PG (27.0-31.0) H Mean Corpuscular Hemoglobin Concent 33.5 G/DL (32.0-36.0) Red Cell Distribution Width 13.8 % (11.6-14.8) Platelet Count 32 K/UL (150-450) L Mean Platelet Volume 11.1 FL (6.5-10.1) H Neutrophils (%) (Auto) % (45.0-75.0) Lymphocytes (%) (Auto) % (20.0-45.0) Monocytes (%) (Auto) % (1.0-10.0) Eosinophils (%) (Auto) % (0.0-3.0) Basophils (%) (Auto) % (0.0-2.0) Differential Total Cells Counted 100 Neutrophils % (Manual) 88 % (45-75) H Lymphocytes % (Manual) 9 % (20-45) L Monocytes % (Manual) 3 % (1-10) Eosinophils % (Manual) 0 % (0-3) Basophils % (Manual) 0 % (0-2) Band Neutrophils 0 % (0-8) Platelet Estimate Decreased L Platelet Morphology Normal Hypochromasia 1+ Spherocytes 1+ Erythrocyte Sedimentation Rate 32 MM/HR (0-20) H Prothrombin Time 19.1 SEC (9.30-11.50) H Prothromb Time International Ratio 1.9 (0.9-1.1) H Activated Partial Thromboplast Time 30 SEC (23-33) Sodium Level 138 MMOL/L (136-145) 137 MMOL/L (136-145) Potassium Level 4.1 MMOL/L (3.5-5.1) 4.1 MMOL/L (3.5-5.1) Chloride Level 107 MMOL/L (98-107) 105 MMOL/L (98-107) Carbon Dioxide Level 17 MMOL/L (21-32) L 20 MMOL/L (21-32) L Anion Gap 14 mmol/L (5-15) 13 mmol/L (5-15) Blood Urea Nitrogen 18 mg/dL (7-18) 20 mg/dL (7-18) H Creatinine 3.4 MG/DL (0.55-1.30) H 4.0 MG/DL (0.55-1.30) H Estimat Glomerular Filtration Rate 18.1 mL/min (>60) 14.9 mL/min (>60) Glucose Level 109 MG/DL (74-106) H 90 MG/DL (74-106) Lactic Acid Level 2.30 mmol/L (0.4-2.0) H 2.70 mmol/L (0.4-2.0) H Uric Acid 9.2 MG/DL (2.6-7.2) H Calcium Level 5.6 MG/DL (8.5-10.1) *L 5.6 MG/DL (8.5-10.1) *L Phosphorus Level 3.8 MG/DL (2.5-4.9) Magnesium Level 1.3 MG/DL (1.8-2.4) L Total Bilirubin 1.2 MG/DL (0.2-1.0) H Direct Bilirubin 0.8 MG/DL (0.0-0.3) H Aspartate Amino Transf (AST/SGOT) < 5 U/L (15-37) L Alanine Aminotransferase (ALT/SGPT) 4557 U/L (12-78) H Alkaline Phosphatase 427 U/L (46-116) H Lactate Dehydrogenase > 4000 U/L (81-234) H Total Creatine Kinase 293 U/L (26-308) C-Reactive Protein, Quantitative 9.6 mg/dL (0.00-0.90) H Pro-B-Type Natriuretic Peptide 3797 pg/mL (0-125) H Total Protein 5.3 G/DL (6.4-8.2) L Albumin 2.3 G/DL (3.4-5.0) L Globulin 3.0 g/dL Albumin/Globulin Ratio 0.8 (1.0-2.7) L Amylase Level 84 U/L (25-115) Lipase 82 U/L (73-393) Thyroid Stimulating Hormone (TSH) 0.423 uiU/mL (0.358-3.740) Arterial Blood pH 7.321 (7.350-7.450) Arterial Blood Partial Pressure CO2 33.8 mmHg (35.0-45.0) L Arterial Blood Partial Pressure O2 84.1 mmHg (75.0-100.0) Arterial Blood HCO3 17.1 mmol/L (22.0-26.0) *L Arterial Blood Oxygen Saturation 95.7 % (95-100) Arterial Blood Base Excess -8.1 (-2-2) L Amarjit Test Positive General Appearance: no apparent distress Head: normocephalic EENT: PERRL/EOMI, normal ENT inspection Neck: supple Respiratory: normal breath sounds, no respiratory distress Cardiovascular: normal rate Gastrointestinal: normal inspection, non tender, soft, normal bowel sounds, non -distended Rectal: deferred Genitourinary: no CVA tenderness Neurologic: alert, responsive, normal inspection Skin: normal inspection, normal color, no rash, warm/dry, palpation normal, well hydrated Lymphatic: normal inspection, no adenopathy Current Medications Current Medications Medications (Trade) Dose Ordered Sig/Greta Route PRN Reason Start Time Stop Time Status Last Admin Dose Admin Acetaminophen (Tylenol) 650 mg Q4H PRN ORAL T>100.5 03/26/19 20:00 04/25/19 19:59 Albuterol/ Ipratropium (Albuterol/ Ipratropium) 3 ml Q4H PRN HHN Shortness of Breath 03/26/19 20:00 03/31/19 19:59 03/27/19 11:19 Chlorhexidine Gluconate (Hetal-Hex 2%) 1 applic DAILY@2000 TOPIC 03/27/19 20:00 04/26/19 19:59 03/27/19 20:27 Dextrose (Dextrose 50%) 25 ml Q30M PRN IV Hypoglycemia 03/28/19 11:30 04/27/19 11:29 Dextrose (Dextrose 50%) 50 ml Q30M PRN IV Hypoglycemia 03/28/19 11:30 04/27/19 11:29 Fentanyl Citrate 1000 mcg/Sodium Chloride 100 ml @ 0 mls/hr Q24H PRN IV Agitation 03/28/19 00:15 04/04/19 00:14 Guaifenesin (Robitussin) 200 mg Q4H PRN ORAL For Cough 03/27/19 11:15 04/26/19 11:14 03/27/19 22:54 Heparin Sodium/ Sodium Chloride (Heparin 1000 units/500ml Premix) 1,000 unit ONCE PRN IV PICC LINE INSERTION 03/27/19 17:15 03/29/19 17:14 Insulin Aspart (NovoLOG) BEFORE MEALS AND HS SUBQ 03/28/19 12:00 04/27/19 11:59 Insulin Detemir (Levemir) 10 units BID SUBQ 03/28/19 12:00 04/27/19 11:59 03/28/19 12:09 Iopamidol (Isovue-300 100ml) 100 ml NOW PRN INJ Radiology Procedure 03/26/19 17:00 Ipratropium [place] (Atrovent) 500 mcg Q4HRT HHN 03/27/19 19:00 04/01/19 18:59 03/28/19 11:41 Lidocaine HCl (Xylocaine 1% 30ml) 30 ml ONCE PRN INJ PICC LINE 03/27/19 17:15 03/29/19 17:14 Lorazepam (Ativan 2mg/ml 1ml) 1 mg Q2H PRN IV agitation 03/27/19 18:00 04/02/19 19:59 03/27/19 23:49 Midazolam HCl 100 ml @ 0 mls/hr Q24H PRN IV Agitation 03/28/19 00:15 04/04/19 00:14 03/28/19 00:47 Morphine Sulfate (Morphine Sulfate) 2 mg Q2H PRN IVP Severe Pain (Pain Scale 7-10) 03/27/19 17:15 04/03/19 17:14 03/28/19 10:17 Nitroglycerin (Ntg) 0.4 mg Q5MIN X 3 DOSES PRN SL Prn Chest Pain 03/26/19 20:15 04/25/19 20:14 Ondansetron HCl (Zofran) 4 mg Q6H PRN IVP Nausea & Vomiting 03/26/19 20:00 04/25/19 19:59 Pantoprazole 80 mg/Sodium Chloride 250 ml @ 25 mls/hr Q10H IV 03/28/19 09:00 04/27/19 08:59 03/28/19 09:29 Phytonadione (Vitamin K) 10 mg DAILY SUBQ 03/28/19 11:00 04/27/19 10:59 03/28/19 11:12 Piperacillin Sod/ Tazobactam Sod 3.375 gm/Sodium Chloride 110 ml @ 27.5 mls/hr EVERY 8 HOURS IVPB 03/27/19 22:00 04/01/19 21:59 03/28/19 06:08 Polyethylene Glycol (Miralax) 17 gm DAILYPRN PRN ORAL Constipation 03/26/19 20:00 04/25/19 19:59 Sodium Bicarbonate 150 ml/Dextrose 1,150 ml @ 60 mls/hr [id number] IV 03/28/19 00:00 04/26/19 00:00 03/28/19 00:50 Vancomycin HCl (Vanco rx to dose) 1 ea DAILY PRN MISC . 03/28/19 09:15 04/27/19 09:14 GI: Plan Problems: (1) LFT elevation (2) DKA (diabetic ketoacidoses) (3) Abdominal pain (4) Chronic pancreatitis Plan GGT 885 elevated lipase levels, now normal transaminitis negative US DM management will consider endoscopy pending work up fecal occult blood stool r/o GI bleed monitor H&H, prn transfusions ppi obtain hepatitis panel repeat liver function test for tomorrow will follow along on a daily basis Discussed with Dr. Jiames. Thank you for this patient referral, we will follow. The patient was seen and examined at bedside and all new and available data was reviewed in the patients chart. I agree with the above findings, impression and plan. (Patient seen earlier today. Signature stamp does not reflect patient encounter time.). - MD Brayan Wallaceuyen,[facility] QUALITY IMPROVEMENT COORDINATOR (RN) Mar 28, 2019 14:28
--- NOTE | 2019-03-28 14:51 | Diagnostic Imaging Report ---
Indication: Abdominal pain Comparison: None Single view of the abdomen obtained Findings: NG tube is in good position. Bowel gas pattern is nonspecific. No change seen. IMPRESSION: No change
--- NOTE | 2019-03-28 14:51 | Diagnostic Imaging Report ---
Indication: Dyspnea Comparison: 03/27/2019 A single view chest radiograph was obtained. Findings: Tubes and lines are stable. There is extensive groundglass opacification and consolidation within the lungs bilaterally. This is stable. Heart is enlarged but stable. IMPRESSION: No change from the prior day
[2019-03-28] MEDS ORDERED: Sodium Bicarbonate 150 ML in D5W 1000ml 1,000 ML IV SCH ×3 (16:00)
--- NOTE | 2019-03-28 16:18 | Diagnostic Imaging Report ---
Indication: Endotracheal tube repositioned Comparison: 07:47 A single view chest radiograph was obtained. Findings: 15:58 Endotracheal tube is in better position 2.5 cm above the amrita. No change otherwise. IMPRESSION: NG tube in good position.
[2019-03-28] MEDS: NovoLOG Insulin Flexpen SUBQ SCH ×2 (16:56→20:53)
--- NOTE | 2019-03-28 18:18 | Pulmonolgy Critical Care Note ---
Critical Care - Asmt/Plan Assessment/Plan: Pulmonary Critical Care Progress Note HPI Patient is a 43-year-old woman with past history of Diabetes, Hypertension, Chronic Obstructive Pulmonary Disease, admitted with Acute on Chronic Pancreatitis, elevated Liver Functions, Thrombocytopenia. Had c/o abdominal pain , nausea and vomiting, shortness of breath, coughing. She has a history of pancreatitis, noted to have features of Pancreatitis as well as azotemia, elevated liver function tests. She has history of multiple hernia operations, last in May 2018. No fevers or chills. Denies chest pain. No other aggravating relieving factors. Denies any other associated symptoms. Patient noted to be in Diabetic Ketoacidosis on admission - remains on Insulin gtt, Metabolic acidosis, ARDS/fluid overload, requiring intubation and mechanical ventilation, Worsening Acute Renal Failure, currenty on Bicarbonate gtt Allergies: No Known Allergies Past Medical History: Diabetes, Hypertension, Chronic Obstructive Pulmonary Disease, Pancreatitis Physical Exam Vital Signs Noted General Appearance: sedated on the ventilator Head: normocephalic, atraumatic Eyes: bilateral eye normal inspection, bilateral PERRL ENT: moist mm, ETT Neck: no LN, no masses Respiratory: bilateral rhonchi, BS equal bilaterally Cardiovascular: HS1, HS2 normal, moderate edema, tachycardia Gastrointestinal: normal bowel sounds, soft, non-distended, tenderness - epigastric, hernia - ventral Musculoskeletal: well perfused, moving all limbs Neurologic: no seizures, no focal signs Impression: Pneumonia vs ARDS Respiratory Failure with higt FIO2 and PEEP requirements Acute on Chronic Pancreatitis Hypocalcemia Reduced Albumin level Worsening Acute Renal Failure Elevated Liver Function Tests Thrombocytopenia GI bleed - on Protonix gtt Diabetic ketoacidoses Severe metabolic acidosis Hypertension Chronic Obstructive Pulmonary Disease, Multiple Previous Hernia Surgeries Plan ACVC, Vt 500, Increase RR 24, adjust PEEP 10, adjust FIO2 Adjust ETT - now in good position HCO3 gtt 60 ml/hr Monitor labs, low Ca++ supplemented Repeat ABG PRN HHN Negative/even fluid balance if possible, may need Hemodialysis give worsening ARF/persistent volume overload/high ventilator requirements Broad spectrum antibiotics for possible sepsis/pneumonia PRN Sedation PPX: SCD/Protonix Insulin gtt Labs noted Echo: Preserved LV function EKG: Rate: tachycardiac Rhythm: NSR ST Segments: no acute changes ASA given to the pt in ED: No Chest X-Ray 03/26/2019: no consolidation, no effusion, no pneumothorax, no acute cardiopulmonary disease CXR: 03/27/2019: worsening bilateral infiltrates, low lung volumes, ETT low CT A/P: Lung bases: No mass. No consolidation. ABDOMEN: Liver: Unremarkable. Gallbladder and bile ducts: Unremarkable. Pancreas: Stranding around the pancreas. Multiple calcifications within the pancreas.. Spleen: Unremarkable. Adrenals: Unremarkable. Kidneys and ureters: No hydronephrosis. Stomach and bowel: No bowel obstruction. No bowel wall thickening. Fatty infiltration of the colonic wall. Mild hiatal hernia. PELVIS: Appendix: No evidence of appendicitis. Bladder: Unremarkable. Reproductive: Unremarkable. ABDOMEN and PELVIS: Intraperitoneal space: Unremarkable. Bones/joints: No acute fractures. Soft tissues: Fat containing periumbilical hernia. Vasculature: No abdominal aortic aneurysm. Lymph nodes: No enlarged lymph nodes. Critical Care - Objective Last 24 Hour Vital Signs Date Time Temp Pulse Resp B/P (MAP) Pulse Ox O2 Delivery O2 Flow Rate FiO2 03/28/19 17:30 112 27 127/77 97 Mechanical Ventilator 100 03/28/19 17:25 109 28 98 Mechanical Ventilator 95 112 28 100 03/28/19 17:15 116 29 149/118 91 Mechanical Ventilator 100 03/28/19 17:00 110 28 128/77 96 Mechanical Ventilator 100 03/28/19 17:00 28 Mechanical Ventilator 100 03/28/19 16:45 111 27 128/86 97 Mechanical Ventilator 100 03/28/19 16:45 28 Mechanical Ventilator 100 03/28/19 16:44 27 Mechanical Ventilator 100 03/28/19 16:30 118 30 140/82 93 Mechanical Ventilator 100 03/28/19 16:15 110 25 127/78 100 Mechanical Ventilator 100 03/28/19 16:00 100 03/28/19 16:00 26 Mechanical Ventilator 100 03/28/19 16:00 98.8 109 26 131/81 99 Mechanical Ventilator 100 03/28/19 16:00 Endotracheal Tube 03/28/19 16:00 106 03/28/19 15:50 100 03/28/19 15:45 112 26 129/79 100 Mechanical Ventilator 100 03/28/19 15:30 110 26 120/81 100 Mechanical Ventilator 100 03/28/19 15:15 120 30 132/82 90 Mechanical Ventilator 100 03/28/19 15:08 108 26 98 Mechanical Ventilator 100 112 28 100 03/28/19 15:00 108 29 114/69 98 Mechanical Ventilator 100 03/28/19 15:00 26 Mechanical Ventilator 100 03/28/19 14:45 107 26 119/71 99 Mechanical Ventilator 100 03/28/19 14:30 109 28 122/72 97 Mechanical Ventilator 100 03/28/19 14:15 108 27 117/70 98 Mechanical Ventilator 100 03/28/19 14:00 108 29 120/67 95 Mechanical Ventilator 100 03/28/19 14:00 29 Mechanical Ventilator 100 03/28/19 13:45 106 26 113/68 96 Mechanical Ventilator 100 03/28/19 13:23 106 28 100 03/28/19 13:00 108 29 110/69 93 Mechanical Ventilator 100 03/28/19 13:00 28 Mechanical Ventilator 100 03/28/19 12:45 110 28 115/65 92 Mechanical Ventilator 100 03/28/19 12:30 29 Mechanical Ventilator 100 03/28/19 12:30 115 29 146/117 91 Mechanical Ventilator 100 03/28/19 12:15 104 26 115/64 97 Mechanical Ventilator 100 03/28/19 12:00 Endotracheal Tube 03/28/19 12:00 28 Mechanical Ventilator 100 03/28/19 12:00 100 03/28/19 12:00 98.8 107 25 114/68 96 Mechanical Ventilator 100 03/28/19 12:00 109 03/28/19 11:45 108 26 116/69 98 Mechanical Ventilator 100 03/28/19 11:41 114 31 97 Mechanical Ventilator 100 111 30 100 03/28/19 11:30 111 32 112/72 90 Mechanical Ventilator 100 03/28/19 11:15 116 28 134/73 90 Mechanical Ventilator 100 03/28/19 11:00 30 Mechanical Ventilator 100 03/28/19 11:00 116 30 122/81 90 Mechanical Ventilator 100 03/28/19 10:45 119 29 110/72 90 Mechanical Ventilator 100 03/28/19 10:30 131 29 170/72 86 Mechanical Ventilator 100 03/28/19 10:15 124 30 135/91 88 Mechanical Ventilator 100 03/28/19 10:15 30 Mechanical Ventilator 03/28/19 10:00 32 Mechanical Ventilator 100 03/28/19 10:00 122 27 122/73 93 Mechanical Ventilator 100 03/28/19 09:45 130 28 133/112 86 Mechanical Ventilator 100 03/28/19 09:45 26 Mechanical Ventilator 100 03/28/19 09:34 28 Mechanical Ventilator 100 03/28/19 09:30 117 27 130/87 99 Mechanical Ventilator 100 03/28/19 09:15 114 23 136/90 99 Mechanical Ventilator 100 03/28/19 09:03 112 29 100 03/28/19 09:00 116 20 126/93 99 Mechanical Ventilator 100 03/28/19 09:00 37 Mechanical Ventilator 100 03/28/19 08:55 127 34 134/90 89 Mechanical Ventilator 100 03/28/19 08:30 113 23 134/95 99 Mechanical Ventilator 100 03/28/19 08:00 100 03/28/19 08:00 98.8 111 25 126/80 100 Mechanical Ventilator 100 03/28/19 08:00 26 Mechanical Ventilator 100 03/28/19 08:00 112 03/28/19 08:00 Endotracheal Tube 03/28/19 07:30 112 26 123/81 100 Mechanical Ventilator 100 03/28/19 07:16 113 30 97 Mechanical Ventilator 100 119 28 100 03/28/19 07:00 125 29 154/95 97 Mechanical Ventilator 100 03/28/19 07:00 26 Mechanical Ventilator 100 03/28/19 06:00 109 22 134/89 Mechanical Ventilator 100 03/28/19 06:00 26 Mechanical Ventilator 100 03/28/19 05:30 104 26 100 03/28/19 05:00 107 26 113/81 100 Mechanical Ventilator 100 03/28/19 05:00 26 Mechanical Ventilator 100 03/28/19 04:00 Endotracheal Tube 03/28/19 04:00 25 Mechanical Ventilator 100 03/28/19 04:00 98.4 110 26 120/82 Mechanical Ventilator 100 03/28/19 04:00 110 03/28/19 03:30 110 26 122/78 98 Mechanical Ventilator 100 03/28/19 03:27 112 26 100 Mechanical Ventilator 100 114 27 100 03/28/19 03:00 111 24 127/95 94 Mechanical Ventilator 100 03/28/19 03:00 26 Mechanical Ventilator 100 03/28/19 02:30 110 24 129/99 100 Mechanical Ventilator 100 03/28/19 02:00 111 25 124/89 Mechanical Ventilator 100 03/28/19 02:00 21 Mechanical Ventilator 100 03/28/19 01:30 110 26 100 03/28/19 01:17 98.4 03/28/19 01:00 21 Mechanical Ventilator 100 03/28/19 01:00 114 28 136/92 96 Mechanical Ventilator 100 03/28/19 00:47 32 Mechanical Ventilator 100 03/28/19 00:30 113 26 128/92 97 Mechanical Ventilator 100 03/28/19 00:00 Endotracheal Tube 03/28/19 00:00 98.4 115 25 128/92 97 Mechanical Ventilator 100 03/28/19 00:00 100 03/28/19 00:00 112 03/27/19 23:53 98.0 03/27/19 23:30 132 03/27/19 23:30 118 21 140/94 96 Mechanical Ventilator 100 03/27/19 23:20 117 31 100 03/27/19 23:00 124 24 162/95 95 Mechanical Ventilator 100 03/27/19 22:30 116 28 142/91 95 Mechanical Ventilator 100 03/27/19 22:00 80 03/27/19 22:00 112 26 142/97 95 Mechanical Ventilator 100 03/27/19 21:04 80 03/27/19 21:04 80 03/27/19 21:00 113 27 138/99 98 Mechanical Ventilator 80 03/27/19 21:00 111 26 80 03/27/19 20:30 115 24 158/101 Mechanical Ventilator 80 03/27/19 20:00 80 03/27/19 20:00 Endotracheal Tube 03/27/19 20:00 80 03/27/19 20:00 120 03/27/19 20:00 110 03/27/19 20:00 98.0 109 24 144/95 Mechanical Ventilator 80 03/27/19 19:30 114 24 132/87 98 Mechanical Ventilator 80 03/27/19 19:30 109 24 80 03/27/19 19:00 115 24 132/94 100 Endotracheal Tube 80 Micro: Microbiology Date/Time Source Procedure Growth Status 03/26/19 17:05 Nasal Nares - Final Complete 03/26/19 17:05 Nasal Nares - Final Complete 03/26/19 19:50 Urine,Clean Catch Urine Culture - Preliminary Mixed Gram Positive Organism Resulted Accucheck: 132 Critical Care - Subjective ROS Limited/Unobtainable: No FI02: 100 Vent Support Breath Rate: 26 Vent Support Mode: AC Vent Tidal Volume: 500 Sputum Amount: Small PEEP: 10.0 PIP: 28 I&O: Intake and Output 03/27/19 03/28/19 19:00 07:00 Intake Total 2017.655 ml 3240.0 ml Output Total 270 ml 730 ml Balance 1747.655 ml 2510.0 ml Intake Oral 50 ml IV Total 1967.655 ml 3240.0 ml Output Urine Total 270 ml 730 ml ET-Tube: 7.5 ET Position: 23 Julio Rodrigez MD Mar 28, 2019 18:18
--- NOTE | 2019-03-28 18:38 | Surgery Progress Note ---
Surgery Progress Note Subjective Procedure Performed right femoral central venous catheter insertion Additional Comments lft's noted lip and roxi nml today lactic acidosis improved cxr ntoed given lasix good uop now hopefully turning the corner. Objective Last 24 Hour Vital Signs Date Time Temp Pulse Resp B/P (MAP) Pulse Ox O2 Delivery O2 Flow Rate FiO2 03/28/19 18:30 32 Mechanical Ventilator 95 03/28/19 18:24 100 03/28/19 18:00 108 27 118/72 98 Mechanical Ventilator 100 03/28/19 18:00 27 Mechanical Ventilator 100 03/28/19 17:30 112 27 127/77 97 Mechanical Ventilator 100 03/28/19 17:25 109 28 98 Mechanical Ventilator 95 112 28 100 03/28/19 17:15 116 29 149/118 91 Mechanical Ventilator 100 03/28/19 17:00 110 28 128/77 96 Mechanical Ventilator 100 03/28/19 17:00 28 Mechanical Ventilator 95 03/28/19 17:00 95 03/28/19 16:45 111 27 128/86 97 Mechanical Ventilator 100 03/28/19 16:45 28 Mechanical Ventilator 100 03/28/19 16:44 27 Mechanical Ventilator 100 03/28/19 16:30 118 30 140/82 93 Mechanical Ventilator 100 03/28/19 16:15 110 25 127/78 100 Mechanical Ventilator 100 03/28/19 16:00 100 03/28/19 16:00 26 Mechanical Ventilator 100 03/28/19 16:00 98.8 109 26 131/81 99 Mechanical Ventilator 100 03/28/19 16:00 Endotracheal Tube 03/28/19 16:00 106 03/28/19 15:50 100 03/28/19 15:45 112 26 129/79 100 Mechanical Ventilator 100 03/28/19 15:30 110 26 120/81 100 Mechanical Ventilator 100 03/28/19 15:15 120 30 132/82 90 Mechanical Ventilator 100 03/28/19 15:08 108 26 98 Mechanical Ventilator 100 112 28 100 03/28/19 15:00 108 29 114/69 98 Mechanical Ventilator 100 03/28/19 15:00 26 Mechanical Ventilator 100 03/28/19 14:45 107 26 119/71 99 Mechanical Ventilator 100 03/28/19 14:30 109 28 122/72 97 Mechanical Ventilator 100 03/28/19 14:15 108 27 117/70 98 Mechanical Ventilator 100 03/28/19 14:00 108 29 120/67 95 Mechanical Ventilator 100 03/28/19 14:00 29 Mechanical Ventilator 100 03/28/19 13:45 106 26 113/68 96 Mechanical Ventilator 100 03/28/19 13:23 106 28 100 03/28/19 13:00 108 29 110/69 93 Mechanical Ventilator 100 03/28/19 13:00 28 Mechanical Ventilator 100 03/28/19 12:45 110 28 115/65 92 Mechanical Ventilator 100 03/28/19 12:30 29 Mechanical Ventilator 100 03/28/19 12:30 115 29 146/117 91 Mechanical Ventilator 100 03/28/19 12:15 104 26 115/64 97 Mechanical Ventilator 100 03/28/19 12:00 Endotracheal Tube 03/28/19 12:00 28 Mechanical Ventilator 100 03/28/19 12:00 100 03/28/19 12:00 98.8 107 25 114/68 96 Mechanical Ventilator 100 03/28/19 12:00 109 03/28/19 11:45 108 26 116/69 98 Mechanical Ventilator 100 03/28/19 11:41 114 31 97 Mechanical Ventilator 100 111 30 100 03/28/19 11:30 111 32 112/72 90 Mechanical Ventilator 100 03/28/19 11:15 116 28 134/73 90 Mechanical Ventilator 100 03/28/19 11:00 30 Mechanical Ventilator 100 03/28/19 11:00 116 30 122/81 90 Mechanical Ventilator 100 03/28/19 10:45 119 29 110/72 90 Mechanical Ventilator 100 03/28/19 10:30 131 29 170/72 86 Mechanical Ventilator 100 03/28/19 10:15 124 30 135/91 88 Mechanical Ventilator 100 03/28/19 10:15 30 Mechanical Ventilator 03/28/19 10:00 32 Mechanical Ventilator 100 03/28/19 10:00 122 27 122/73 93 Mechanical Ventilator 100 03/28/19 09:45 130 28 133/112 86 Mechanical Ventilator 100 03/28/19 09:45 26 Mechanical Ventilator 100 03/28/19 09:34 28 Mechanical Ventilator 100 03/28/19 09:30 117 27 130/87 99 Mechanical Ventilator 100 03/28/19 09:15 114 23 136/90 99 Mechanical Ventilator 100 03/28/19 09:03 112 29 100 03/28/19 09:00 116 20 126/93 99 Mechanical Ventilator 100 03/28/19 09:00 37 Mechanical Ventilator 100 03/28/19 08:55 127 34 134/90 89 Mechanical Ventilator 100 03/28/19 08:30 113 23 134/95 99 Mechanical Ventilator 100 03/28/19 08:00 100 03/28/19 08:00 98.8 111 25 126/80 100 Mechanical Ventilator 100 03/28/19 08:00 26 Mechanical Ventilator 100 03/28/19 08:00 112 03/28/19 08:00 Endotracheal Tube 03/28/19 07:30 112 26 123/81 100 Mechanical Ventilator 100 03/28/19 07:16 113 30 97 Mechanical Ventilator 100 119 28 100 03/28/19 07:00 125 29 154/95 97 Mechanical Ventilator 100 03/28/19 07:00 26 Mechanical Ventilator 100 03/28/19 06:00 109 22 134/89 Mechanical Ventilator 100 03/28/19 06:00 26 Mechanical Ventilator 100 03/28/19 05:30 104 26 100 03/28/19 05:00 107 26 113/81 100 Mechanical Ventilator 100 03/28/19 05:00 26 Mechanical Ventilator 100 03/28/19 04:00 Endotracheal Tube 03/28/19 04:00 25 Mechanical Ventilator 100 03/28/19 04:00 98.4 110 26 120/82 Mechanical Ventilator 100 03/28/19 04:00 110 03/28/19 03:30 110 26 122/78 98 Mechanical Ventilator 100 03/28/19 03:27 112 26 100 Mechanical Ventilator 100 114 27 100 03/28/19 03:00 111 24 127/95 94 Mechanical Ventilator 100 03/28/19 03:00 26 Mechanical Ventilator 100 03/28/19 02:30 110 24 129/99 100 Mechanical Ventilator 100 03/28/19 02:00 111 25 124/89 Mechanical Ventilator 100 03/28/19 02:00 21 Mechanical Ventilator 100 03/28/19 01:30 110 26 100 03/28/19 01:17 98.4 03/28/19 01:00 21 Mechanical Ventilator 100 03/28/19 01:00 114 28 136/92 96 Mechanical Ventilator 100 03/28/19 00:47 32 Mechanical Ventilator 100 03/28/19 00:30 113 26 128/92 97 Mechanical Ventilator 100 03/28/19 00:00 Endotracheal Tube 03/28/19 00:00 98.4 115 25 128/92 97 Mechanical Ventilator 100 03/28/19 00:00 100 03/28/19 00:00 112 03/27/19 23:53 98.0 03/27/19 23:30 132 03/27/19 23:30 118 21 140/94 96 Mechanical Ventilator 100 03/27/19 23:20 117 31 100 03/27/19 23:00 124 24 162/95 95 Mechanical Ventilator 100 03/27/19 22:30 116 28 142/91 95 Mechanical Ventilator 100 03/27/19 22:00 80 03/27/19 22:00 112 26 142/97 95 Mechanical Ventilator 100 03/27/19 21:04 80 03/27/19 21:04 80 03/27/19 21:00 113 27 138/99 98 Mechanical Ventilator 80 03/27/19 21:00 111 26 80 03/27/19 20:30 115 24 158/101 Mechanical Ventilator 80 03/27/19 20:00 80 03/27/19 20:00 Endotracheal Tube 03/27/19 20:00 80 03/27/19 20:00 120 03/27/19 20:00 110 03/27/19 20:00 98.0 109 24 144/95 Mechanical Ventilator 80 03/27/19 19:30 114 24 132/87 98 Mechanical Ventilator 80 03/27/19 19:30 109 24 80 03/27/19 19:00 115 24 132/94 100 Endotracheal Tube 80 I&O Intake and Output 03/27/19 03/28/19 19:00 07:00 Intake Total 2017.655 ml 3240.0 ml Output Total 270 ml 730 ml Balance 1747.655 ml 2510.0 ml Intake Oral 50 ml IV Total 1967.655 ml 3240.0 ml Output Urine Total 270 ml 730 ml Dressing: other Wound: other Drains: other Cardiovascular: RSR Respiratory: decreased breath sounds Abdomen: present bowel sounds Extremities: no cyanosis, other Laboratory Tests Test 03/27/19 22:00 03/28/19 02:45 03/28/19 09:13 03/28/19 10:05 Arterial Blood pH 7.221 (7.350-7.450) 7.321 (7.350-7.450) Arterial Blood Partial Pressure CO2 38.8 mmHg (35.0-45.0) 33.8 mmHg (35.0-45.0) L Arterial Blood Partial Pressure O2 52.4 mmHg (75.0-100.0) L 84.1 mmHg (75.0-100.0) Arterial Blood HCO3 15.6 mmol/L (22.0-26.0) *L 17.1 mmol/L (22.0-26.0) *L Arterial Blood Oxygen Saturation 83.1 % (95-100) *L 95.7 % (95-100) Arterial Blood Base Excess -11.4 (-2-2) *L -8.1 (-2-2) L Amarjit Test Positive Positive White Blood Count 5.7 K/UL (4.8-10.8) Red Blood Count 3.22 M/UL (4.20-5.40) L Hemoglobin 10.0 G/DL (12.0-16.0) L Hematocrit 29.9 % (37.0-47.0) L Mean Corpuscular Volume 93 FL (80-99) Mean Corpuscular Hemoglobin 31.1 PG (27.0-31.0) H Mean Corpuscular Hemoglobin Concent 33.5 G/DL (32.0-36.0) Red Cell Distribution Width 13.8 % (11.6-14.8) Platelet Count 32 K/UL (150-450) L Mean Platelet Volume 11.1 FL (6.5-10.1) H Neutrophils (%) (Auto) % (45.0-75.0) Lymphocytes (%) (Auto) % (20.0-45.0) Monocytes (%) (Auto) % (1.0-10.0) Eosinophils (%) (Auto) % (0.0-3.0) Basophils (%) (Auto) % (0.0-2.0) Differential Total Cells Counted 100 Neutrophils % (Manual) 88 % (45-75) H Lymphocytes % (Manual) 9 % (20-45) L Monocytes % (Manual) 3 % (1-10) Eosinophils % (Manual) 0 % (0-3) Basophils % (Manual) 0 % (0-2) Band Neutrophils 0 % (0-8) Platelet Estimate Decreased L Platelet Morphology Normal Hypochromasia 1+ Spherocytes 1+ Erythrocyte Sedimentation Rate 32 MM/HR (0-20) H Prothrombin Time 19.1 SEC (9.30-11.50) H Prothromb Time International Ratio 1.9 (0.9-1.1) H Activated Partial Thromboplast Time 30 SEC (23-33) Sodium Level 138 MMOL/L (136-145) 137 MMOL/L (136-145) Potassium Level 4.1 MMOL/L (3.5-5.1) 4.1 MMOL/L (3.5-5.1) Chloride Level 107 MMOL/L (98-107) 105 MMOL/L (98-107) Carbon Dioxide Level 17 MMOL/L (21-32) L 20 MMOL/L (21-32) L Anion Gap 14 mmol/L (5-15) 13 mmol/L (5-15) Blood Urea Nitrogen 18 mg/dL (7-18) 20 mg/dL (7-18) H Creatinine 3.4 MG/DL (0.55-1.30) H 4.0 MG/DL (0.55-1.30) H Estimat Glomerular Filtration Rate 18.1 mL/min (>60) 14.9 mL/min (>60) Glucose Level 109 MG/DL (74-106) H 90 MG/DL (74-106) Lactic Acid Level 2.30 mmol/L (0.4-2.0) H 2.70 mmol/L (0.4-2.0) H Uric Acid 9.2 MG/DL (2.6-7.2) H Calcium Level 5.6 MG/DL (8.5-10.1) *L 5.6 MG/DL (8.5-10.1) *L Phosphorus Level 3.8 MG/DL (2.5-4.9) Magnesium Level 1.3 MG/DL (1.8-2.4) L Total Bilirubin 1.2 MG/DL (0.2-1.0) H Direct Bilirubin 0.8 MG/DL (0.0-0.3) H Aspartate Amino Transf (AST/SGOT) < 5 U/L (15-37) L Alanine Aminotransferase (ALT/SGPT) 4557 U/L (12-78) H Alkaline Phosphatase 427 U/L (46-116) H Lactate Dehydrogenase > 4000 U/L (81-234) H Total Creatine Kinase 293 U/L (26-308) C-Reactive Protein, Quantitative 9.6 mg/dL (0.00-0.90) H Pro-B-Type Natriuretic Peptide 3797 pg/mL (0-125) H Total Protein 5.3 G/DL (6.4-8.2) L Albumin 2.3 G/DL (3.4-5.0) L Globulin 3.0 g/dL Albumin/Globulin Ratio 0.8 (1.0-2.7) L Amylase Level 84 U/L (25-115) Lipase 82 U/L (73-393) Thyroid Stimulating Hormone (TSH) 0.423 uiU/mL (0.358-3.740) Test 03/28/19 16:10 Lactic Acid Level 1.70 mmol/L (0.4-2.0) Ionized Calcium (Measured) 0.86 mmol/L (1.10-1.35) L Plan Problems: (1) Abdominal pain Assessment & Plan: 43F presented with abd pain per report 01/04 generalized unable to obtain exam now that she is intubated in distress labs noted ventral incisional hernia reducible abd soft -npo -iv fluids -ng tube to low intermittent suction -will order imaging when stabilized will follow with recs thank you (2) Ventral hernia (3) Acute on chronic pancreatitis Assessment & Plan: Evidence of acute on chronic pancreatitis. No pseudocyst. Hepatomegaly with severe steatosis. Mild hiatal hernia. 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 see note trend labs will follow with recs Lefty Meraz Mar 28, 2019 18:38
--- NOTE | 2019-03-28 19:06 | Internal Med Progress Note ---
Subjective Date of Service: Mar 28, 2019 Physician Name Marshal Gilbert Attending Physician Shree Mcintyre MD Current Medications Medications (Trade) Dose Ordered Sig/Greta Route PRN Reason Start Time Stop Time Status Last Admin Dose Admin Acetaminophen (Tylenol) 650 mg Q4H PRN ORAL T>100.5 03/26/19 20:00 04/25/19 19:59 Albuterol/ Ipratropium (Albuterol/ Ipratropium) 3 ml Q4H PRN HHN Shortness of Breath 03/26/19 20:00 03/31/19 19:59 03/27/19 11:19 Calcium Gluconate 1 gm/Sodium Chloride 120 ml @ 240 mls/hr ONCE IVPB 03/28/19 19:30 03/28/19 21:00 Chlorhexidine Gluconate (Hetal-Hex 2%) 1 applic DAILY@2000 TOPIC 03/27/19 20:00 04/26/19 19:59 03/27/19 20:27 Dextrose (Dextrose 50%) 25 ml Q30M PRN IV Hypoglycemia 03/28/19 11:30 04/27/19 11:29 Dextrose (Dextrose 50%) 50 ml Q30M PRN IV Hypoglycemia 03/28/19 11:30 04/27/19 11:29 Fentanyl Citrate 1000 mcg/Sodium Chloride 100 ml @ 0 mls/hr Q24H PRN IV Agitation 03/28/19 00:15 04/04/19 00:14 Guaifenesin (Robitussin) 200 mg Q4H PRN ORAL For Cough 03/27/19 11:15 04/26/19 11:14 03/27/19 22:54 Heparin Sodium/ Sodium Chloride (Heparin 1000 units/500ml Premix) 1,000 unit ONCE PRN IV PICC LINE INSERTION 03/27/19 17:15 03/29/19 17:14 Insulin Aspart (NovoLOG) EVERY 4 HOURS SUBQ 03/28/19 17:00 04/27/19 11:59 03/28/19 16:56 Insulin Detemir (Levemir) 10 units BID SUBQ 03/28/19 12:00 04/27/19 11:59 03/28/19 18:10 Iopamidol (Isovue-300 100ml) 100 ml NOW PRN INJ Radiology Procedure 03/26/19 17:00 Ipratropium [place] (Atrovent) 500 mcg Q4HRT HHN 03/27/19 19:00 04/01/19 18:59 03/28/19 15:07 Lidocaine HCl (Xylocaine 1% 30ml) 30 ml ONCE PRN INJ PICC LINE 03/27/19 17:15 03/29/19 17:14 Lorazepam (Ativan 2mg/ml 1ml) 1 mg Q2H PRN IV agitation 03/27/19 18:00 04/02/19 19:59 03/27/19 23:49 Midazolam HCl 100 ml @ 0 mls/hr Q24H PRN IV Agitation 03/28/19 00:15 04/04/19 00:14 03/28/19 16:45 Morphine Sulfate (Morphine Sulfate) 2 mg Q2H PRN IVP Severe Pain (Pain Scale 7-10) 03/28/19 20:15 04/04/19 20:14 Nitroglycerin (Ntg) 0.4 mg Q5MIN X 3 DOSES PRN SL Prn Chest Pain 03/26/19 20:15 04/25/19 20:14 Ondansetron HCl (Zofran) 4 mg Q6H PRN IVP Nausea & Vomiting 03/26/19 20:00 04/25/19 19:59 Pantoprazole 80 mg/Sodium Chloride 250 ml @ 25 mls/hr Q10H IV 03/28/19 09:00 04/27/19 08:59 03/28/19 09:29 Phytonadione (Vitamin K) 10 mg DAILY SUBQ 03/28/19 11:00 04/27/19 10:59 03/28/19 11:12 Piperacillin Sod/ Tazobactam Sod 3.375 gm/Sodium Chloride 110 ml @ 27.5 mls/hr EVERY 8 HOURS IVPB 03/27/19 22:00 04/01/19 21:59 03/28/19 14:23 Polyethylene Glycol (Miralax) 17 gm DAILYPRN PRN ORAL Constipation 03/26/19 20:00 04/25/19 19:59 Sodium Bicarbonate 150 ml/Dextrose 1,150 ml @ 60 mls/hr [id number] IV 03/28/19 16:00 04/27/19 15:59 03/28/19 15:53 Vancomycin HCl (Vanco rx to dose) 1 ea DAILY PRN MISC . 03/28/19 09:15 04/27/19 09:14 Allergies: Coded Allergies: No Known Allergies (Unverified , 08/04/18) ROS Limited/Unobtainable: Yes Subjective 43 YO F admitted with diabetic ketoacidosis. Now ARDS and respiratory failure. Intubated and sedated. ICU Objective Last Vital Signs Date Time Temp Pulse Resp B/P (MAP) Pulse Ox O2 Delivery O2 Flow Rate FiO2 03/28/19 18:30 32 Mechanical Ventilator 95 03/28/19 18:00 108 118/72 98 03/28/19 16:00 98.8 03/27/19 15:00 4.0 General Appearance: WD/WN, moderate distress EENT: PERRL/EOMI, normal ENT inspection Neck: non-tender, normal alignment, normal inspection Cardiovascular: normal peripheral pulses, normal rate, regular rhythm, no gallop/murmur, no JVD Respiratory/Chest: respiratory distress, crackles/rales, rhonchi - bilaterally , expiratory wheezing Abdomen: normal bowel sounds, non tender, soft, no organomegaly, no mass Extremities: normal inspection Edema: trace edema 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 Skin: normal pigmentation Laboratory Tests Test 03/27/19 22:00 03/28/19 02:45 03/28/19 09:13 03/28/19 10:05 Arterial Blood pH 7.221 (7.350-7.450) 7.321 (7.350-7.450) Arterial Blood Partial Pressure CO2 38.8 mmHg (35.0-45.0) 33.8 mmHg (35.0-45.0) L Arterial Blood Partial Pressure O2 52.4 mmHg (75.0-100.0) L 84.1 mmHg (75.0-100.0) Arterial Blood HCO3 15.6 mmol/L (22.0-26.0) *L 17.1 mmol/L (22.0-26.0) *L Arterial Blood Oxygen Saturation 83.1 % (95-100) *L 95.7 % (95-100) Arterial Blood Base Excess -11.4 (-2-2) *L -8.1 (-2-2) L Amarjit Test Positive Positive White Blood Count 5.7 K/UL (4.8-10.8) Red Blood Count 3.22 M/UL (4.20-5.40) L Hemoglobin 10.0 G/DL (12.0-16.0) L Hematocrit 29.9 % (37.0-47.0) L Mean Corpuscular Volume 93 FL (80-99) Mean Corpuscular Hemoglobin 31.1 PG (27.0-31.0) H Mean Corpuscular Hemoglobin Concent 33.5 G/DL (32.0-36.0) Red Cell Distribution Width 13.8 % (11.6-14.8) Platelet Count 32 K/UL (150-450) L Mean Platelet Volume 11.1 FL (6.5-10.1) H Neutrophils (%) (Auto) % (45.0-75.0) Lymphocytes (%) (Auto) % (20.0-45.0) Monocytes (%) (Auto) % (1.0-10.0) Eosinophils (%) (Auto) % (0.0-3.0) Basophils (%) (Auto) % (0.0-2.0) Differential Total Cells Counted 100 Neutrophils % (Manual) 88 % (45-75) H Lymphocytes % (Manual) 9 % (20-45) L Monocytes % (Manual) 3 % (1-10) Eosinophils % (Manual) 0 % (0-3) Basophils % (Manual) 0 % (0-2) Band Neutrophils 0 % (0-8) Platelet Estimate Decreased L Platelet Morphology Normal Hypochromasia 1+ Spherocytes 1+ Erythrocyte Sedimentation Rate 32 MM/HR (0-20) H Prothrombin Time 19.1 SEC (9.30-11.50) H Prothromb Time International Ratio 1.9 (0.9-1.1) H Activated Partial Thromboplast Time 30 SEC (23-33) Sodium Level 138 MMOL/L (136-145) 137 MMOL/L (136-145) Potassium Level 4.1 MMOL/L (3.5-5.1) 4.1 MMOL/L (3.5-5.1) Chloride Level 107 MMOL/L (98-107) 105 MMOL/L (98-107) Carbon Dioxide Level 17 MMOL/L (21-32) L 20 MMOL/L (21-32) L Anion Gap 14 mmol/L (5-15) 13 mmol/L (5-15) Blood Urea Nitrogen 18 mg/dL (7-18) 20 mg/dL (7-18) H Creatinine 3.4 MG/DL (0.55-1.30) H 4.0 MG/DL (0.55-1.30) H Estimat Glomerular Filtration Rate 18.1 mL/min (>60) 14.9 mL/min (>60) Glucose Level 109 MG/DL (74-106) H 90 MG/DL (74-106) Lactic Acid Level 2.30 mmol/L (0.4-2.0) H 2.70 mmol/L (0.4-2.0) H Uric Acid 9.2 MG/DL (2.6-7.2) H Calcium Level 5.6 MG/DL (8.5-10.1) *L 5.6 MG/DL (8.5-10.1) *L Phosphorus Level 3.8 MG/DL (2.5-4.9) Magnesium Level 1.3 MG/DL (1.8-2.4) L Total Bilirubin 1.2 MG/DL (0.2-1.0) H Direct Bilirubin 0.8 MG/DL (0.0-0.3) H Aspartate Amino Transf (AST/SGOT) < 5 U/L (15-37) L Alanine Aminotransferase (ALT/SGPT) 4557 U/L (12-78) H Alkaline Phosphatase 427 U/L (46-116) H Lactate Dehydrogenase > 4000 U/L (81-234) H Total Creatine Kinase 293 U/L (26-308) C-Reactive Protein, Quantitative 9.6 mg/dL (0.00-0.90) H Pro-B-Type Natriuretic Peptide 3797 pg/mL (0-125) H Total Protein 5.3 G/DL (6.4-8.2) L Albumin 2.3 G/DL (3.4-5.0) L Globulin 3.0 g/dL Albumin/Globulin Ratio 0.8 (1.0-2.7) L Amylase Level 84 U/L (25-115) Lipase 82 U/L (73-393) Thyroid Stimulating Hormone (TSH) 0.423 uiU/mL (0.358-3.740) Test 03/28/19 16:10 Lactic Acid Level 1.70 mmol/L (0.4-2.0) Ionized Calcium (Measured) 0.86 mmol/L (1.10-1.35) L Microbiology Date/Time Source Procedure Growth Status 03/26/19 17:05 Nasal Nares - Final Complete 03/26/19 17:05 Nasal Nares - Final Complete 03/26/19 19:50 Urine,Clean Catch Urine Culture - Preliminary Mixed Gram Positive Organism Resulted Intake and Output 03/27/19 03/28/19 19:00 07:00 Intake Total 2017.655 ml 3240.0 ml Output Total 270 ml 730 ml Balance 1747.655 ml 2510.0 ml Intake Oral 50 ml IV Total 1967.655 ml 3240.0 ml Output Urine Total 270 ml 730 ml Assessment/Plan Assessment/Plan ASSESSMENT: This is a 43-year-old female with: 1. Abdominal pain. 2. Acute on chronic pancreatitis. 3. Diabetic ketoacidosis. 4. Hyperglycemia. 5. Renal failure. 6. Diabetes type 2. 7. Hypertension. 8. Ventral hernia. 9. ARDs/Respiratory failure TREATMENT: 1. Abdominal pain/acute pancreatitis. A Gastroenterology consultation has been obtained with Dr. Monty Jaimes. We will follow recommendations of Gastroenterology. The patient is currently NPO. 2. Diabetic ketoacidosis/hyperglycemia. An Endocrinology consultation is pending with Dr. Joseph Saleem. The patient has been placed on a regular insulin drip. We will follow recommendations of Endocrinology. 3. Renal failure. A Nephrology consultation has been obtained with Dr. Lopez. We will follow recommendations of Nephrology. 4. Hypertension. Continue amlodipine as above. 5. Ventral hernia. 6. Mechanical vent per pulmonary=Marshal Krishna MD Mar 28, 2019 19:06
--- NOTE | 2019-03-28 19:22 | Cardiology Report ---
APPROVED REPORT EKG Measurement Heart [id number] [place] 130P56 [id number] Sinus tachycardia Otherwise normal ECG
[2019-03-28] MEDS ORDERED: Calcium Gluconate 10% 1 GM in NS 110 ML IVPB SCH (19:30)
[2019-03-28] MEDS ORDERED: Morphine Sulfate 2mg/ml Inj(IV/IM USE ONLY) IVP PRN (20:15)
[2019-03-28] MEDS: Dyna-Hex 2% Top Sol 2oz TOPIC SCH (20:51)
[2019-03-28] MEDS ORDERED: Pantoprazole Inj IVP SCH (21:00)
[2019-03-29] VITALS (44 sets, daily range): BP systolic 79–158; BP diastolic 53–96
[2019-03-29] MEDS: NovoLOG Insulin Flexpen SUBQ SCH ×6 (01:00→21:00)
[2019-03-29] MEDS: Ipratropium 0.02% Inh Soln 2.5ml UD HHN SCH ×6 (03:11→23:40)
[2019-03-29] MEDS: Pantoprazole 80 MG in NS 250 ML IV SCH ×2 (04:17→14:40)
[2019-03-29] MEDS: Piperacillin/Tazobactam 3.375 GM in NS 110 ML IVPB SCH ×2 (06:07→20:02)
--- NOTE | 2019-03-29 06:19 | General Progress Note ---
Assessment/Plan Problem List: (1) DKA (diabetic ketoacidoses) ICD Codes: E11.10 - Type 2 diabetes mellitus with ketoacidosis without coma SNOMED: 753909157, [id number] Qualifiers: Qualified Codes: E13.10 - Other specified diabetes mellitus with ketoacidosis without coma (2) Diabetes mellitus out of control ICD Codes: E11.65 - Type 2 diabetes mellitus with hyperglycemia SNOMED: 75946019, 886061912 (3) Acute on chronic pancreatitis ICD Codes: K85.90 - Acute pancreatitis without necrosis or infection, unspecified; K86.1 - Other chronic pancreatitis SNOMED: 863788993, 452760642 (4) Respiratory failure ICD Codes: J96.90 - Respiratory failure, unspecified, unspecified whether with hypoxia or hypercapnia SNOMED: 081962501 Assessment/Plan: DKA resolved reduce Levemir to 8 units bid continue NISS every 4 hours Subjective ROS Limited/Unobtainable: Yes Allergies: Coded Allergies: No Known Allergies (Unverified , 08/04/18) Subjective sedated and intubated off insulin gtt Item Value Date Time Bedside Blood Glucose 82 mg/dl 03/29/19 0500 Bedside Blood Glucose 83 mg/dl 03/29/19 0100 Bedside Blood Glucose 160 mg/dl H 03/28/19 2053 Bedside Blood Glucose 159 mg/dl H 03/28/19 1810 Bedside Blood Glucose 105 mg/dl 03/28/19 1400 Bedside Blood Glucose 92 mg/dl 03/28/19 1000 Bedside Blood Glucose 96 mg/dl 03/28/19 0600 Bedside Blood Glucose 121 mg/dl H 03/28/19 0200 Objective Last 24 Hour Vital Signs Date Time Temp Pulse Resp B/P (MAP) Pulse Ox O2 Delivery O2 Flow Rate FiO2 03/29/19 05:20 110 30 100 Mechanical Ventilator 95 90 26 100 03/29/19 03:07 90 26 100 Mechanical Ventilator 95 90 26 100 03/29/19 02:00 26 Mechanical Ventilator 03/29/19 02:00 91 26 110/71 100 Mechanical Ventilator 100 03/29/19 01:30 93 26 107/70 100 Mechanical Ventilator 100 03/29/19 01:10 97 26 95 03/29/19 01:00 94 26 107/65 100 Mechanical Ventilator 100 03/29/19 01:00 26 Mechanical Ventilator 03/29/19 00:30 95 26 100/67 100 Mechanical Ventilator 100 03/29/19 00:00 100 26 106/68 100 Mechanical Ventilator 100 03/29/19 00:00 108 03/29/19 00:00 26 Mechanical Ventilator 03/29/19 00:00 100 03/29/19 00:00 Endotracheal Tube 03/28/19 23:30 103 17 108/66 100 Mechanical Ventilator 100 03/28/19 23:07 116 32 91 Mechanical Ventilator 95 116 32 100 03/28/19 23:00 24 Mechanical Ventilator 03/28/19 23:00 115 31 112/81 86 Mechanical Ventilator 100 03/28/19 22:30 120 30 129/85 86 Mechanical Ventilator 100 03/28/19 22:00 29 Mechanical Ventilator 03/28/19 22:00 115 33 100/72 93 Mechanical Ventilator 100 03/28/19 21:30 121 24 100/72 95 Mechanical Ventilator 100 03/28/19 21:15 108 30 119/74 94 Mechanical Ventilator 100 03/28/19 21:00 28 03/28/19 21:00 108 29 115/74 94 Mechanical Ventilator 100 03/28/19 21:00 108 30 95 03/28/19 20:45 107 29 115/74 91 Mechanical Ventilator 100 03/28/19 20:30 108 28 120/77 90 Mechanical Ventilator 100 03/28/19 20:15 107 29 123/74 94 Mechanical Ventilator 100 03/28/19 20:00 106 26 121/76 97 Mechanical Ventilator 100 03/28/19 20:00 28 Mechanical Ventilator 03/28/19 20:00 105 03/28/19 20:00 100 03/28/19 20:00 Endotracheal Tube 03/28/19 19:45 100 6 110/76 100 Mechanical Ventilator 100 03/28/19 19:30 99.2 102 0 113/76 100 Mechanical Ventilator 100 03/28/19 19:18 107 26 95 Mechanical Ventilator 95 107 26 100 03/28/19 19:00 108 25 120/76 96 Mechanical Ventilator 100 03/28/19 19:00 25 Mechanical Ventilator 100 03/28/19 18:30 110 27 122/80 95 Mechanical Ventilator 100 03/28/19 18:30 32 Mechanical Ventilator 95 03/28/19 18:24 100 03/28/19 18:00 108 27 118/72 98 Mechanical Ventilator 100 03/28/19 18:00 27 Mechanical Ventilator 100 03/28/19 17:30 112 27 127/77 97 Mechanical Ventilator 100 03/28/19 17:25 109 28 98 Mechanical Ventilator 95 112 28 100 03/28/19 17:15 116 29 149/118 91 Mechanical Ventilator 100 03/28/19 17:00 110 28 128/77 96 Mechanical Ventilator 100 03/28/19 17:00 28 Mechanical Ventilator 95 03/28/19 17:00 95 03/28/19 16:45 111 27 128/86 97 Mechanical Ventilator 100 03/28/19 16:45 28 Mechanical Ventilator 100 03/28/19 16:44 27 Mechanical Ventilator 100 03/28/19 16:30 118 30 140/82 93 Mechanical Ventilator 100 03/28/19 16:15 110 25 127/78 100 Mechanical Ventilator 100 03/28/19 16:00 100 03/28/19 16:00 26 Mechanical Ventilator 100 03/28/19 16:00 98.8 109 26 131/81 99 Mechanical Ventilator 100 03/28/19 16:00 Endotracheal Tube 03/28/19 16:00 106 03/28/19 15:50 100 03/28/19 15:45 112 26 129/79 100 Mechanical Ventilator 100 03/28/19 15:30 110 26 120/81 100 Mechanical Ventilator 100 03/28/19 15:15 120 30 132/82 90 Mechanical Ventilator 100 03/28/19 15:08 108 26 98 Mechanical Ventilator 100 112 28 100 03/28/19 15:00 108 29 114/69 98 Mechanical Ventilator 100 03/28/19 15:00 26 Mechanical Ventilator 100 03/28/19 14:45 107 26 119/71 99 Mechanical Ventilator 100 03/28/19 14:30 109 28 122/72 97 Mechanical Ventilator 100 03/28/19 14:15 108 27 117/70 98 Mechanical Ventilator 100 03/28/19 14:00 108 29 120/67 95 Mechanical Ventilator 100 03/28/19 14:00 29 Mechanical Ventilator 100 03/28/19 13:45 106 26 113/68 96 Mechanical Ventilator 100 03/28/19 13:23 106 28 100 03/28/19 13:00 108 29 110/69 93 Mechanical Ventilator 100 03/28/19 13:00 28 Mechanical Ventilator 100 03/28/19 12:45 110 28 115/65 92 Mechanical Ventilator 100 03/28/19 12:30 29 Mechanical Ventilator 100 03/28/19 12:30 115 29 146/117 91 Mechanical Ventilator 100 03/28/19 12:15 104 26 115/64 97 Mechanical Ventilator 100 03/28/19 12:00 Endotracheal Tube 03/28/19 12:00 28 Mechanical Ventilator 100 03/28/19 12:00 100 03/28/19 12:00 98.8 107 25 114/68 96 Mechanical Ventilator 100 03/28/19 12:00 109 03/28/19 11:45 108 26 116/69 98 Mechanical Ventilator 100 03/28/19 11:41 114 31 97 Mechanical Ventilator 100 111 30 100 03/28/19 11:30 111 32 112/72 90 Mechanical Ventilator 100 03/28/19 11:15 116 28 134/73 90 Mechanical Ventilator 100 03/28/19 11:00 30 Mechanical Ventilator 100 03/28/19 11:00 116 30 122/81 90 Mechanical Ventilator 100 03/28/19 10:45 119 29 110/72 90 Mechanical Ventilator 100 03/28/19 10:30 131 29 170/72 86 Mechanical Ventilator 100 03/28/19 10:15 124 30 135/91 88 Mechanical Ventilator 100 03/28/19 10:15 30 Mechanical Ventilator 03/28/19 10:00 32 Mechanical Ventilator 100 03/28/19 10:00 122 27 122/73 93 Mechanical Ventilator 100 03/28/19 09:45 130 28 133/112 86 Mechanical Ventilator 100 03/28/19 09:45 26 Mechanical Ventilator 100 03/28/19 09:34 28 Mechanical Ventilator 100 03/28/19 09:30 117 27 130/87 99 Mechanical Ventilator 100 03/28/19 09:15 114 23 136/90 99 Mechanical Ventilator 100 03/28/19 09:03 112 29 100 03/28/19 09:00 116 20 126/93 99 Mechanical Ventilator 100 03/28/19 09:00 37 Mechanical Ventilator 100 03/28/19 08:55 127 34 134/90 89 Mechanical Ventilator 100 03/28/19 08:30 113 23 134/95 99 Mechanical Ventilator 100 03/28/19 08:00 100 03/28/19 08:00 98.8 111 25 126/80 100 Mechanical Ventilator 100 03/28/19 08:00 26 Mechanical Ventilator 100 03/28/19 08:00 112 03/28/19 08:00 Endotracheal Tube 03/28/19 07:30 112 26 123/81 100 Mechanical Ventilator 100 03/28/19 07:16 113 30 97 Mechanical Ventilator 100 119 28 100 03/28/19 07:00 125 29 154/95 97 Mechanical Ventilator 100 03/28/19 07:00 26 Mechanical Ventilator 100 Intake and Output 03/28/19 03/29/19 19:00 07:00 Intake Total 1679.75 ml 749.541 ml Output Total 1045 ml 560 ml Balance 634.75 ml 189.541 ml IV Total 1679.75 ml 749.541 ml Output Urine Total 1045 ml 560 ml Laboratory Tests 03/28/19 09:13: Arterial Blood pH 7.321L, Arterial Blood Partial Pressure CO2 33.8L, Arterial Blood Partial Pressure O2 84.1, Arterial Blood HCO3 17.1*L, Arterial Blood Oxygen Saturation 95.7, Arterial Blood Base Excess -8.1L, Aamrjit Test Positive 03/28/19 10:05: Sodium Level 137, Potassium Level 4.1, Chloride Level 105, Carbon Dioxide Level 20L, Anion Gap 13, Blood Urea Nitrogen 20H, Creatinine 4.0H, Estimat Glomerular Filtration Rate 14.9, Glucose Level 90, Lactic Acid Level 2.70H, Calcium Level 5.6*L 03/28/19 16:10: Lactic Acid Level 1.70, Ionized Calcium (Measured) 0.86L Height (Feet): 5 Height (Inches): 2.00 Weight (Pounds): 178 General Appearance: other - intubated EENT: other - ETT Cardiovascular: normal rate Respiratory/Chest: decreased breath sounds Abdomen: normal bowel sounds Objective Current Medications Medications (Trade) Dose Ordered Sig/Greta Route PRN Reason Start Time Stop Time Status Last Admin Dose Admin Acetaminophen (Tylenol) 650 mg Q4H PRN ORAL T>100.5 03/26/19 20:00 04/25/19 19:59 Albuterol/ Ipratropium (Albuterol/ Ipratropium) 3 ml Q4H PRN HHN Shortness of Breath 03/26/19 20:00 03/31/19 19:59 03/27/19 11:19 Chlorhexidine Gluconate (Hetal-Hex 2%) 1 applic DAILY@2000 TOPIC 03/27/19 20:00 04/26/19 19:59 03/28/19 20:51 Dextrose (Dextrose 50%) 25 ml Q30M PRN IV Hypoglycemia 03/28/19 11:30 04/27/19 11:29 Dextrose (Dextrose 50%) 50 ml Q30M PRN IV Hypoglycemia 03/28/19 11:30 04/27/19 11:29 Fentanyl Citrate 1000 mcg/Sodium Chloride 100 ml @ 0 mls/hr Q24H PRN IV Agitation 03/28/19 00:15 04/04/19 00:14 Guaifenesin (Robitussin) 200 mg Q4H PRN ORAL For Cough 03/27/19 11:15 04/26/19 11:14 03/27/19 22:54 Heparin Sodium/ Sodium Chloride (Heparin 1000 units/500ml Premix) 1,000 unit ONCE PRN IV PICC LINE INSERTION 03/27/19 17:15 03/29/19 17:14 Insulin Aspart (NovoLOG) EVERY 4 HOURS SUBQ 03/28/19 17:00 04/27/19 11:59 03/28/19 20:53 Insulin Detemir (Levemir) 10 units BID SUBQ 03/28/19 12:00 04/27/19 11:59 03/28/19 18:10 Iopamidol (Isovue-300 100ml) 100 ml NOW PRN INJ Radiology Procedure 03/26/19 17:00 Ipratropium [place] (Atrovent) 500 mcg Q4HRT HHN 03/27/19 19:00 04/01/19 18:59 03/29/19 03:11 Lidocaine HCl (Xylocaine 1% 30ml) 30 ml ONCE PRN INJ PICC LINE 03/27/19 17:15 03/29/19 17:14 Lorazepam (Ativan 2mg/ml 1ml) 1 mg Q2H PRN IV agitation 03/27/19 18:00 04/02/19 19:59 03/27/19 23:49 Midazolam HCl 100 ml @ 0 mls/hr Q24H PRN IV Agitation 03/28/19 00:15 04/04/19 00:14 03/28/19 16:45 Morphine Sulfate (Morphine Sulfate) 2 mg Q2H PRN IVP Severe Pain (Pain Scale 7-10) 03/28/19 20:15 04/04/19 20:14 03/28/19 23:05 Nitroglycerin (Ntg) 0.4 mg Q5MIN X 3 DOSES PRN SL Prn Chest Pain 03/26/19 20:15 04/25/19 20:14 Ondansetron HCl (Zofran) 4 mg Q6H PRN IVP Nausea & Vomiting 03/26/19 20:00 04/25/19 19:59 Pantoprazole 80 mg/Sodium Chloride 250 ml @ 25 mls/hr Q10H IV 03/28/19 09:00 04/27/19 08:59 03/29/19 04:17 Phytonadione (Vitamin K) 10 mg DAILY SUBQ 03/28/19 11:00 04/27/19 10:59 03/28/19 11:12 Piperacillin Sod/ Tazobactam Sod 3.375 gm/Sodium Chloride 110 ml @ 27.5 mls/hr EVERY 8 HOURS IVPB 03/27/19 22:00 04/01/19 21:59 03/29/19 06:07 Polyethylene Glycol (Miralax) 17 gm DAILYPRN PRN ORAL Constipation 03/26/19 20:00 04/25/19 19:59 Sodium Bicarbonate 150 ml/Dextrose 1,150 ml @ 60 mls/hr [id number] IV 03/28/19 16:00 04/27/19 15:59 03/28/19 15:53 Thiamine HCl 100 mg/Sodium Chloride 56 ml @ 112 mls/hr DAILY IVPB 03/29/19 09:00 04/28/19 08:59 Vancomycin HCl (Vanco rx to dose) 1 ea DAILY PRN MISC . 03/28/19 09:15 04/27/19 09:14 Joseph Saleem MD Mar 29, 2019 06:19
[2019-03-29 07:07] LABS: HEMATOCRIT 26.8 % (37.0-47.0); HEMOGLOBIN 9.3 G/DL (12.0-16.0); MEAN CORPUSCULAR VOLUME 91 FL (80-99); PLATELET COUNT 68 K/UL (150-450); RED BLOOD COUNT 2.95 M/UL (4.20-5.40); RED CELL DISTRIBUTION WIDTH 14.4 % (11.6-14.8); WHITE BLOOD COUNT 6.7 K/UL (4.8-10.8)
[2019-03-29 07:21] LABS: PHOSPHORUS 4.1 MG/DL (2.5-4.9)
[2019-03-29 07:33] LABS: INR 1.3 (0.9-1.1)
[2019-03-29 07:37] LABS: ALANINE AMINOTRANSFERASE 2865 U/L (12-78); ALBUMIN 2.1 G/DL (3.4-5.0); ALBUMIN/GLOBULIN RATIO 0.7 (1.0-2.7); ALKALINE PHOSPHATASE 558 U/L (46-116); ANION GAP 13 mmol/L (5-15); BILIRUBIN,TOTAL 1.4 MG/DL (0.2-1.0); BLOOD UREA NITROGEN 25 mg/dL (7-18); CALCIUM 6.7 MG/DL (8.5-10.1); CARBON DIOXIDE 21 MMOL/L (21-32); CHLORIDE 106 MMOL/L (98-107); CREATININE 4.7 MG/DL (0.55-1.30); POTASSIUM 3.6 MMOL/L (3.5-5.1); SODIUM 140 MMOL/L (136-145)
[2019-03-29] MEDS: Versed 50mg/D5W 100ml 100 ML IV PRN ×2 (07:42→19:19)
[2019-03-29 08:09] LABS: ASPARTATE AMINO TRANSFERASE 4012 U/L (15-37)
[2019-03-29] MEDS ORDERED: Vancomycin 500 MG in NS 110 ML IV ONE (08:30)
--- NOTE | 2019-03-29 08:35 | General Progress Note ---
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 NGTF DM control repeat LFTS fu labs drug screen hepatitis panel Subjective ROS Limited/Unobtainable: No Allergies: Coded Allergies: No Known Allergies (Unverified , 08/04/18) Objective Last 24 Hour Vital Signs Date Time Temp Pulse Resp B/P (MAP) Pulse Ox O2 Delivery O2 Flow Rate FiO2 03/29/19 07:42 27 Mechanical Ventilator 100 03/29/19 07:09 107 28 95 Mechanical Ventilator 100 111 28 100 03/29/19 07:00 108 29 127/83 96 Mechanical Ventilator 100 03/29/19 07:00 26 Mechanical Ventilator 03/29/19 06:30 105 29 03/29/19 06:30 106 29 124/81 96 Mechanical Ventilator 100 03/29/19 06:00 26 Mechanical Ventilator 03/29/19 06:00 109 29 126/88 95 Mechanical Ventilator 100 03/29/19 05:30 101 28 127/90 95 Mechanical Ventilator 100 03/29/19 05:20 110 30 100 Mechanical Ventilator 95 90 26 100 03/29/19 05:00 98 28 123/80 97 Mechanical Ventilator 100 03/29/19 05:00 28 Mechanical Ventilator 03/29/19 04:30 97 29 118/81 100 Mechanical Ventilator 100 03/29/19 04:00 99 26 119/79 99 Mechanical Ventilator 100 03/29/19 04:00 28 Mechanical Ventilator 03/29/19 04:00 Endotracheal Tube 03/29/19 04:00 106 03/29/19 04:00 100 03/29/19 03:30 96 16 112/75 100 Mechanical Ventilator 100 03/29/19 03:07 90 26 100 Mechanical Ventilator 95 90 26 100 03/29/19 03:00 26 Mechanical Ventilator 03/29/19 03:00 90 26 115/78 100 Mechanical Ventilator 100 03/29/19 02:30 90 26 109/75 100 Mechanical Ventilator 100 03/29/19 02:00 26 Mechanical Ventilator 03/29/19 02:00 91 26 110/71 100 Mechanical Ventilator 100 03/29/19 01:30 93 26 107/70 100 Mechanical Ventilator 100 03/29/19 01:10 97 26 95 03/29/19 01:00 94 26 107/65 100 Mechanical Ventilator 100 03/29/19 01:00 26 Mechanical Ventilator 03/29/19 00:30 95 26 100/67 100 Mechanical Ventilator 100 03/29/19 00:00 100 26 106/68 100 Mechanical Ventilator 100 03/29/19 00:00 108 03/29/19 00:00 26 Mechanical Ventilator 03/29/19 00:00 100 03/29/19 00:00 Endotracheal Tube 03/28/19 23:30 103 17 108/66 100 Mechanical Ventilator 100 03/28/19 23:07 116 32 91 Mechanical Ventilator 95 116 32 100 03/28/19 23:00 24 Mechanical Ventilator 03/28/19 23:00 115 31 112/81 86 Mechanical Ventilator 100 03/28/19 22:30 120 30 129/85 86 Mechanical Ventilator 100 03/28/19 22:00 29 Mechanical Ventilator 03/28/19 22:00 115 33 100/72 93 Mechanical Ventilator 100 03/28/19 21:30 121 24 100/72 95 Mechanical Ventilator 100 03/28/19 21:15 108 30 119/74 94 Mechanical Ventilator 100 03/28/19 21:00 28 03/28/19 21:00 108 29 115/74 94 Mechanical Ventilator 100 03/28/19 21:00 108 30 95 03/28/19 20:45 107 29 115/74 91 Mechanical Ventilator 100 03/28/19 20:30 108 28 120/77 90 Mechanical Ventilator 100 03/28/19 20:15 107 29 123/74 94 Mechanical Ventilator 100 03/28/19 20:00 106 26 121/76 97 Mechanical Ventilator 100 03/28/19 20:00 28 Mechanical Ventilator 03/28/19 20:00 105 03/28/19 20:00 100 03/28/19 20:00 Endotracheal Tube 03/28/19 19:45 100 6 110/76 100 Mechanical Ventilator 100 03/28/19 19:30 99.2 102 0 113/76 100 Mechanical Ventilator 100 03/28/19 19:18 107 26 95 Mechanical Ventilator 95 107 26 100 03/28/19 19:00 108 25 120/76 96 Mechanical Ventilator 100 03/28/19 19:00 25 Mechanical Ventilator 100 03/28/19 18:30 110 27 122/80 95 Mechanical Ventilator 100 03/28/19 18:30 32 Mechanical Ventilator 95 03/28/19 18:24 100 03/28/19 18:00 108 27 118/72 98 Mechanical Ventilator 100 03/28/19 18:00 27 Mechanical Ventilator 100 03/28/19 17:30 112 27 127/77 97 Mechanical Ventilator 100 03/28/19 17:25 109 28 98 Mechanical Ventilator 95 112 28 100 03/28/19 17:15 116 29 149/118 91 Mechanical Ventilator 100 03/28/19 17:00 110 28 128/77 96 Mechanical Ventilator 100 03/28/19 17:00 28 Mechanical Ventilator 95 03/28/19 17:00 95 03/28/19 16:45 111 27 128/86 97 Mechanical Ventilator 100 03/28/19 16:45 28 Mechanical Ventilator 100 03/28/19 16:44 27 Mechanical Ventilator 100 03/28/19 16:30 118 30 140/82 93 Mechanical Ventilator 100 03/28/19 16:15 110 25 127/78 100 Mechanical Ventilator 100 03/28/19 16:00 100 03/28/19 16:00 26 Mechanical Ventilator 100 03/28/19 16:00 98.8 109 26 131/81 99 Mechanical Ventilator 100 03/28/19 16:00 Endotracheal Tube 03/28/19 16:00 106 03/28/19 15:50 100 03/28/19 15:45 112 26 129/79 100 Mechanical Ventilator 100 03/28/19 15:30 110 26 120/81 100 Mechanical Ventilator 100 03/28/19 15:15 120 30 132/82 90 Mechanical Ventilator 100 03/28/19 15:08 108 26 98 Mechanical Ventilator 100 112 28 100 03/28/19 15:00 108 29 114/69 98 Mechanical Ventilator 100 03/28/19 15:00 26 Mechanical Ventilator 100 03/28/19 14:45 107 26 119/71 99 Mechanical Ventilator 100 03/28/19 14:30 109 28 122/72 97 Mechanical Ventilator 100 03/28/19 14:15 108 27 117/70 98 Mechanical Ventilator 100 03/28/19 14:00 108 29 120/67 95 Mechanical Ventilator 100 03/28/19 14:00 29 Mechanical Ventilator 100 03/28/19 13:45 106 26 113/68 96 Mechanical Ventilator 100 03/28/19 13:23 106 28 100 03/28/19 13:00 108 29 110/69 93 Mechanical Ventilator 100 03/28/19 13:00 28 Mechanical Ventilator 100 03/28/19 12:45 110 28 115/65 92 Mechanical Ventilator 100 03/28/19 12:30 29 Mechanical Ventilator 100 03/28/19 12:30 115 29 146/117 91 Mechanical Ventilator 100 03/28/19 12:15 104 26 115/64 97 Mechanical Ventilator 100 03/28/19 12:00 Endotracheal Tube 03/28/19 12:00 28 Mechanical Ventilator 100 03/28/19 12:00 100 03/28/19 12:00 98.8 107 25 114/68 96 Mechanical Ventilator 100 03/28/19 12:00 109 03/28/19 11:45 108 26 116/69 98 Mechanical Ventilator 100 03/28/19 11:41 114 31 97 Mechanical Ventilator 100 111 30 100 03/28/19 11:30 111 32 112/72 90 Mechanical Ventilator 100 03/28/19 11:15 116 28 134/73 90 Mechanical Ventilator 100 03/28/19 11:00 30 Mechanical Ventilator 100 03/28/19 11:00 116 30 122/81 90 Mechanical Ventilator 100 03/28/19 10:45 119 29 110/72 90 Mechanical Ventilator 100 03/28/19 10:30 131 29 170/72 86 Mechanical Ventilator 100 03/28/19 10:15 124 30 135/91 88 Mechanical Ventilator 100 03/28/19 10:15 30 Mechanical Ventilator 03/28/19 10:00 32 Mechanical Ventilator 100 03/28/19 10:00 122 27 122/73 93 Mechanical Ventilator 100 03/28/19 09:45 130 28 133/112 86 Mechanical Ventilator 100 03/28/19 09:45 26 Mechanical Ventilator 100 03/28/19 09:34 28 Mechanical Ventilator 100 03/28/19 09:30 117 27 130/87 99 Mechanical Ventilator 100 03/28/19 09:15 114 23 136/90 99 Mechanical Ventilator 100 03/28/19 09:03 112 29 100 03/28/19 09:00 116 20 126/93 99 Mechanical Ventilator 100 03/28/19 09:00 37 Mechanical Ventilator 100 03/28/19 08:55 127 34 134/90 89 Mechanical Ventilator 100 Intake and Output 03/28/19 03/29/19 19:00 07:00 Intake Total 1679.75 ml 1253.500 ml Output Total 1045 ml 810 ml Balance 634.75 ml 443.500 ml IV Total 1679.75 ml 1253.500 ml Output Urine Total 1045 ml 810 ml Laboratory Tests 03/28/19 09:13: Arterial Blood pH 7.321L, Arterial Blood Partial Pressure CO2 33.8L, Arterial Blood Partial Pressure O2 84.1, Arterial Blood HCO3 17.1*L, Arterial Blood Oxygen Saturation 95.7, Arterial Blood Base Excess -8.1L, Amarjit Test Positive 03/28/19 10:05: Sodium Level 137, Potassium Level 4.1, Chloride Level 105, Carbon Dioxide Level 20L, Anion Gap 13, Blood Urea Nitrogen 20H, Creatinine 4.0H, Estimat Glomerular Filtration Rate 14.9, Glucose Level 90, Lactic Acid Level 2.70H, Calcium Level 5.6*L 03/28/19 16:10: Lactic Acid Level 1.70, Ionized Calcium (Measured) 0.86L 03/29/19 06:20: Sodium Level 140, Potassium Level 3.6, Chloride Level 106, Carbon Dioxide Level 21, Anion Gap 13, Blood Urea Nitrogen 25H, Creatinine 4.7H, Estimat Glomerular Filtration Rate 12.4, Glucose Level 91, Lactic Acid Level 2.40H, Calcium Level 6.7L, Ionized Calcium (Measured) 0.92L, White Blood Count 6.7, Red Blood Count 2.95L, Hemoglobin 9.3L, Hematocrit 26.8L, Mean Corpuscular Volume 91, Mean Corpuscular Hemoglobin 31.4H, Mean Corpuscular Hemoglobin Concent 34.5, Red Cell Distribution Width 14.4, Platelet Count 68#L, Mean Platelet Volume 6.6, Neutrophils (%) (Auto) , Lymphocytes (%) (Auto) , Monocytes (%) (Auto) , Eosinophils (%) (Auto) , Basophils (%) (Auto) , Neutrophils % (Manual) [Pending] , Lymphocytes % (Manual) [Pending], Platelet Estimate [Pending], Platelet Morphology [Pending], Prothrombin Time 14.1H, Prothromb Time International Ratio 1.3H, Activated Partial Thromboplast Time 27, Fibrinogen 329, Uric Acid 9.5H, Phosphorus Level 4.1, Magnesium Level 1.7L, Total Bilirubin 1.4H, Direct Bilirubin 1.0H, Gamma Glutamyl Transpeptidase 1029H, Aspartate Amino Transf (AST /SGOT) 4012H, Alanine Aminotransferase (ALT/SGPT) 2865H, Alkaline Phosphatase 558H, Lactate Dehydrogenase 1829H, Troponin I 0.037, C-Reactive Protein, Quantitative 17.3H, Pro-B-Type Natriuretic Peptide 2675H, Total Protein 5.2L, Albumin 2.1L, Globulin 3.1, Albumin/Globulin Ratio 0.7L, Lipase 21L, Random Vancomycin Level 9.2 Height (Feet): 5 Height (Inches): 2.00 Weight (Pounds): 178 General Appearance: lethargic EENT: normal ENT inspection Neck: supple Cardiovascular: tachycardia Respiratory/Chest: decreased breath sounds Abdomen: normal bowel sounds, non tender, soft Extremities: non-tender Monty Jaimes MD Mar 29, 2019 08:35
--- NOTE | 2019-03-29 08:58 | Diagnostic Imaging Report ---
Indication: Shortness of breath Technique: One view of the chest Comparison: 03/28/2019 Findings: Stable satisfactory position of endotracheal and nasogastric tubes. Bilateral interstitial and airspace opacities persist, appears slightly worse. Heart size is normal Impression: Worsening pulmonary edema versus infiltrates, over one day
[2019-03-29] MEDS: Thiamine HCl 100 MG in NS 55 ML IVPB SCH (09:02)
[2019-03-29] MEDS: Phytonadione 10 mg/mL 1ml amp SUBQ SCH (09:03)
[2019-03-29] MEDS ORDERED: Phytonadione 10 mg/mL 1ml amp SUBQ ONE (09:15)
[2019-03-29] MEDS ORDERED: Calcium Gluconate 10% 2 GM in NS 110 ML IVPB ONE (10:00)
[2019-03-29] MEDS: Levemir Flexpen SUBQ SCH ×2 (10:25→17:59)
[2019-03-29] MEDS ORDERED: Sodium Bicarbonate 150 ML in D5W 1000ml 1,000 ML IV SCH (10:30)
--- NOTE | 2019-03-29 12:41 | Diagnostic Imaging Report ---
Indication: Acute renal failure Technique: Procedure performed at bedside. Procedural timeout performed. Total sterile technique, including sterile probe cover and sterile gel, sterile gloves, hand hygiene, hat, mask, sterile gown, large sterile drape, and preparation with 2% chlorhexidine utilized. Local anesthesia with 1% lidocaine. Under real-time ultrasound guidance, puncture right internal jugular vein using 20-gauge micropuncture needle, passage coronoid a guidewire, insertion 4 Kittitian micropuncture introducer, passage 0.035 guidewire, over which was passed serial dilators and then a 13 [place]itian 20 cm triple-lumen temporary dialysis catheter. Guidewire was removed. Catheter ports were aspirated and flushed. The catheter was fixed to the skin. Patient tolerated procedure well. A chest x-ray was obtained, documents catheter tip position somewhat deep within the right atrium. Comparison: none Findings: As above Impression: Successful bedside placement of right transjugular temporary dialysis catheter, as described. Note somewhat deep catheter position. This will be retracted.
--- NOTE | 2019-03-29 12:58 | Pulmonolgy Critical Care Note ---
Critical Care - Asmt/Plan Assessment/Plan: Pulmonary Critical Care Progress Note HPI Patient is a 43-year-old woman with past history of Diabetes, Hypertension, Chronic Obstructive Pulmonary Disease, admitted with Acute on Chronic Pancreatitis, elevated Liver Functions, Thrombocytopenia. Had c/o abdominal pain , nausea and vomiting, shortness of breath, coughing. She has a history of pancreatitis, noted to have features of Pancreatitis as well as azotemia, elevated liver function tests. She has history of multiple hernia operations, last in May 2018. No fevers or chills. Denies chest pain. No other aggravating relieving factors. Denies any other associated symptoms. Patient noted to be in Diabetic Ketoacidosis on admission - remains on Insulin gtt, Metabolic acidosis, ARDS/fluid overload, requiring intubation and mechanical ventilation, Worsening Acute Renal Failure, currently on Bicarbonate gtt, Hemodialysis planned, HD catheter inserted Allergies: No Known Allergies Past Medical History: Diabetes, Hypertension, Chronic Obstructive Pulmonary Disease, Pancreatitis Physical Exam Vital Signs Noted General Appearance: sedated on the ventilator Head: normocephalic, atraumatic Eyes: bilateral eye normal inspection, bilateral PERRL ENT: moist mm, ETT Neck: no LN, no masses Respiratory: bilateral rhonchi, BS equal bilaterally Cardiovascular: HS1, HS2 normal, moderate edema, tachycardia Gastrointestinal: normal bowel sounds, soft, non-distended, tenderness - epigastric, hernia - ventral Musculoskeletal: well perfused, moving all limbs Neurologic: no seizures, no focal signs Impression: Pneumonia vs ARDS Respiratory Failure with high FIO2 and PEEP requirements, remains in positive fluid balance despite diuresis Acute on Chronic Pancreatitis Hypocalcemia sp replacement Hypomagnesemia s/p replacement Reduced Albumin level Worsening Acute Renal Failurefor HD Elevated Liver Function Tests Significant previous Alcohol abuse per her partner Thrombocytopenia GI bleed - on Protonix gtt Diabetic ketoacidoses Severe metabolic acidosis H/o Hypertension H/o Chronic Obstructive Pulmonary Disease, H/o Multiple Previous Hernia Surgeries Plan ACVC, Vt 450, Increase RR 24, adjust PEEP 12, adjust FIO2 ETT in good position HCO3 gtt 30 ml/hr Monitor labs, low Ca++/Mg supplemented Repeat ABG PRN HHN For Hemodialysis give worsening ARF/persistent volume overload/high ventilator requirements Broad spectrum antibiotics for possible sepsis/pneumonia PRN Sedation PPX: SCD/Protonix Insulin gtt Labs noted Echo: Preserved LV function EKG: Rate: tachycardiac Rhythm: NSR ST Segments: no acute changes ASA given to the pt in ED: No Chest X-Ray 03/26/2019: no consolidation, no effusion, no pneumothorax, no acute cardiopulmonary disease CXR: 03/27/2019: worsening bilateral infiltrates, low lung volumes, ETT low CT A/P: Lung bases: No mass. No consolidation. ABDOMEN: Liver: Unremarkable. Gallbladder and bile ducts: Unremarkable. Pancreas: Stranding around the pancreas. Multiple calcifications within the pancreas.. Spleen: Unremarkable. Adrenals: Unremarkable. Kidneys and ureters: No hydronephrosis. Stomach and bowel: No bowel obstruction. No bowel wall thickening. Fatty infiltration of the colonic wall. Mild hiatal hernia. PELVIS: Appendix: No evidence of appendicitis. Bladder: Unremarkable. Reproductive: Unremarkable. ABDOMEN and PELVIS: Intraperitoneal space: Unremarkable. Bones/joints: No acute fractures. Soft tissues: Fat containing periumbilical hernia. Vasculature: No abdominal aortic aneurysm. Lymph nodes: No enlarged lymph nodes. Critical Care - Objective Last 24 Hour Vital Signs Date Time Temp Pulse Resp B/P (MAP) Pulse Ox O2 Delivery O2 Flow Rate FiO2 03/29/19 12:00 100 03/29/19 12:00 31 Mechanical Ventilator 100 03/29/19 12:00 Endotracheal Tube 03/29/19 12:00 137 31 140/80 93 Mechanical Ventilator 100 03/29/19 11:30 135 35 155/76 88 Mechanical Ventilator 100 03/29/19 11:00 116 35 130/84 91 Mechanical Ventilator 100 03/29/19 11:00 17 Mechanical Ventilator 100 03/29/19 10:37 117 34 100 03/29/19 10:30 117 32 136/89 93 Mechanical Ventilator 100 03/29/19 10:00 119 35 132/95 92 Mechanical Ventilator 100 03/29/19 10:00 18 Mechanical Ventilator 100 03/29/19 09:30 112 30 133/88 99 Mechanical Ventilator 100 03/29/19 09:00 115 31 143/83 96 Mechanical Ventilator 100 03/29/19 09:00 23 Mechanical Ventilator 100 03/29/19 08:32 114 31 100 03/29/19 08:30 112 29 132/92 96 Mechanical Ventilator 100 03/29/19 08:00 98.8 112 28 131/89 97 Mechanical Ventilator 100 03/29/19 08:00 21 Mechanical Ventilator 100 03/29/19 08:00 Endotracheal Tube 03/29/19 08:00 100 03/29/19 07:43 107 03/29/19 07:42 27 Mechanical Ventilator 100 03/29/19 07:09 107 28 95 Mechanical Ventilator 100 111 28 100 03/29/19 07:00 108 29 127/83 96 Mechanical Ventilator 100 03/29/19 07:00 26 Mechanical Ventilator 03/29/19 06:30 105 29 03/29/19 06:30 106 29 124/81 96 Mechanical Ventilator 100 03/29/19 06:00 26 Mechanical Ventilator 03/29/19 06:00 109 29 126/88 95 Mechanical Ventilator 100 03/29/19 05:30 101 28 127/90 95 Mechanical Ventilator 100 03/29/19 05:20 110 30 100 Mechanical Ventilator 95 90 26 100 03/29/19 05:00 98 28 123/80 97 Mechanical Ventilator 100 03/29/19 05:00 28 Mechanical Ventilator 03/29/19 04:30 97 29 118/81 100 Mechanical Ventilator 100 03/29/19 04:00 99 26 119/79 99 Mechanical Ventilator 100 03/29/19 04:00 28 Mechanical Ventilator 03/29/19 04:00 Endotracheal Tube 03/29/19 04:00 106 03/29/19 04:00 100 03/29/19 03:30 96 16 112/75 100 Mechanical Ventilator 100 03/29/19 03:07 90 26 100 Mechanical Ventilator 95 90 26 100 03/29/19 03:00 26 Mechanical Ventilator 03/29/19 03:00 90 26 115/78 100 Mechanical Ventilator 100 03/29/19 02:30 90 26 109/75 100 Mechanical Ventilator 100 03/29/19 02:00 26 Mechanical Ventilator 03/29/19 02:00 91 26 110/71 100 Mechanical Ventilator 100 03/29/19 01:30 93 26 107/70 100 Mechanical Ventilator 100 03/29/19 01:10 97 26 95 03/29/19 01:00 94 26 107/65 100 Mechanical Ventilator 100 03/29/19 01:00 26 Mechanical Ventilator 03/29/19 00:30 95 26 100/67 100 Mechanical Ventilator 100 03/29/19 00:00 100 26 106/68 100 Mechanical Ventilator 100 03/29/19 00:00 108 03/29/19 00:00 26 Mechanical Ventilator 03/29/19 00:00 100 03/29/19 00:00 Endotracheal Tube 03/28/19 23:30 103 17 108/66 100 Mechanical Ventilator 100 03/28/19 23:07 116 32 91 Mechanical Ventilator 95 116 32 100 03/28/19 23:00 24 Mechanical Ventilator 03/28/19 23:00 115 31 112/81 86 Mechanical Ventilator 100 03/28/19 22:30 120 30 129/85 86 Mechanical Ventilator 100 03/28/19 22:00 29 Mechanical Ventilator 03/28/19 22:00 115 33 100/72 93 Mechanical Ventilator 100 03/28/19 21:30 121 24 100/72 95 Mechanical Ventilator 100 03/28/19 21:15 108 30 119/74 94 Mechanical Ventilator 100 03/28/19 21:00 28 03/28/19 21:00 108 29 115/74 94 Mechanical Ventilator 100 03/28/19 21:00 108 30 95 03/28/19 20:45 107 29 115/74 91 Mechanical Ventilator 100 03/28/19 20:30 108 28 120/77 90 Mechanical Ventilator 100 03/28/19 20:15 107 29 123/74 94 Mechanical Ventilator 100 03/28/19 20:00 106 26 121/76 97 Mechanical Ventilator 100 03/28/19 20:00 28 Mechanical Ventilator 03/28/19 20:00 105 03/28/19 20:00 100 03/28/19 20:00 Endotracheal Tube 03/28/19 19:45 100 6 110/76 100 Mechanical Ventilator 100 03/28/19 19:30 99.2 102 0 113/76 100 Mechanical Ventilator 100 03/28/19 19:18 107 26 95 Mechanical Ventilator 95 107 26 100 03/28/19 19:00 108 25 120/76 96 Mechanical Ventilator 100 03/28/19 19:00 25 Mechanical Ventilator 100 03/28/19 18:30 110 27 122/80 95 Mechanical Ventilator 100 03/28/19 18:30 32 Mechanical Ventilator 95 03/28/19 18:24 100 03/28/19 18:00 108 27 118/72 98 Mechanical Ventilator 100 03/28/19 18:00 27 Mechanical Ventilator 100 03/28/19 17:30 112 27 127/77 97 Mechanical Ventilator 100 03/28/19 17:25 109 28 98 Mechanical Ventilator 95 112 28 100 03/28/19 17:15 116 29 149/118 91 Mechanical Ventilator 100 03/28/19 17:00 110 28 128/77 96 Mechanical Ventilator 100 03/28/19 17:00 28 Mechanical Ventilator 95 03/28/19 17:00 95 03/28/19 16:45 111 27 128/86 97 Mechanical Ventilator 100 03/28/19 16:45 28 Mechanical Ventilator 100 03/28/19 16:44 27 Mechanical Ventilator 100 03/28/19 16:30 118 30 140/82 93 Mechanical Ventilator 100 03/28/19 16:15 110 25 127/78 100 Mechanical Ventilator 100 03/28/19 16:00 100 03/28/19 16:00 26 Mechanical Ventilator 100 03/28/19 16:00 98.8 109 26 131/81 99 Mechanical Ventilator 100 03/28/19 16:00 Endotracheal Tube 03/28/19 16:00 106 03/28/19 15:50 100 03/28/19 15:45 112 26 129/79 100 Mechanical Ventilator 100 03/28/19 15:30 110 26 120/81 100 Mechanical Ventilator 100 03/28/19 15:15 120 30 132/82 90 Mechanical Ventilator 100 03/28/19 15:08 108 26 98 Mechanical Ventilator 100 112 28 100 03/28/19 15:00 108 29 114/69 98 Mechanical Ventilator 100 03/28/19 15:00 26 Mechanical Ventilator 100 03/28/19 14:45 107 26 119/71 99 Mechanical Ventilator 100 03/28/19 14:30 109 28 122/72 97 Mechanical Ventilator 100 03/28/19 14:15 108 27 117/70 98 Mechanical Ventilator 100 03/28/19 14:00 108 29 120/67 95 Mechanical Ventilator 100 03/28/19 14:00 29 Mechanical Ventilator 100 03/28/19 13:45 106 26 113/68 96 Mechanical Ventilator 100 03/28/19 13:23 106 28 100 03/28/19 13:00 108 29 110/69 93 Mechanical Ventilator 100 03/28/19 13:00 28 Mechanical Ventilator 100 Micro: Microbiology Date/Time Source Procedure Growth Status 03/26/19 17:05 Nasal Nares - Final Complete 03/26/19 17:05 Nasal Nares - Final Complete 03/26/19 19:50 Urine,Clean Catch Urine Culture - Final Mixed Gram Positive Organism Complete Accucheck: 89 Critical Care - Subjective ROS Limited/Unobtainable: No Condition: grave FI02: 100 Vent Support Breath Rate: 26 Vent Support Mode: AC Vent Tidal Volume: 500 Sputum Amount: Small PEEP: 10.0 PIP: 20 I&O: Intake and Output 03/28/19 03/29/19 18:59 06:59 Intake Total 1629.25 ml 1249.500 ml Output Total 970 ml 885 ml Balance 659.25 ml 364.500 ml IV Total 1629.25 ml 1249.500 ml Output Urine Total 970 ml 885 ml ET-Tube: 7.5 ET Position: 23 Julio Rodrigez MD Mar 29, 2019 12:58
--- NOTE | 2019-03-29 13:43 | Nephrology Progress Note ---
Assessment/Plan Problem List: (1) Acute renal failure (ARF) (2) Respiratory failure (3) DKA (diabetic ketoacidoses) (4) LFT elevation (5) Electrolyte imbalance Assessment: Low Mag and Low Ca (6) Thrombocytopathia Assessment Acute respiratory failure Acute renal failure high LFTs, thrombocytopenia ? HUS ? CKD undelying DKA Elevated Lipase coagulopathy Plan DIALYSIS TODAY- agreeable Vent support mionitor electrolyte and chemistries 2D echo noted below Kidney ABBY noted below per order GI , Hematology? Ca and Mag IV Vit K Echo Hyperkinetic wall motion. Left ventricular ejection fraction estimated to be 55-60 %. Moderate left ventricular hypertrophy by 2D. Abd CT: Evidence of acute on chronic pancreatitis. No pseudocyst. Hepatomegaly with severe steatosis. Subjective ROS Limited/Unobtainable: Yes Objective Objective Last 24 Hour Vital Signs Date Time Temp Pulse Resp B/P (MAP) Pulse Ox O2 Delivery O2 Flow Rate FiO2 03/29/19 13:04 130 32 100 03/29/19 13:00 126 32 92 Mechanical Ventilator 100 03/29/19 12:00 100 03/29/19 12:00 31 Mechanical Ventilator 100 03/29/19 12:00 Endotracheal Tube 03/29/19 12:00 137 31 140/80 93 Mechanical Ventilator 100 03/29/19 11:30 135 35 155/76 88 Mechanical Ventilator 100 03/29/19 11:00 116 35 130/84 91 Mechanical Ventilator 100 03/29/19 11:00 17 Mechanical Ventilator 100 03/29/19 10:37 117 34 100 03/29/19 10:30 117 32 136/89 93 Mechanical Ventilator 100 03/29/19 10:00 119 35 132/95 92 Mechanical Ventilator 100 03/29/19 10:00 18 Mechanical Ventilator 100 03/29/19 09:30 112 30 133/88 99 Mechanical Ventilator 100 03/29/19 09:00 115 31 143/83 96 Mechanical Ventilator 100 03/29/19 09:00 23 Mechanical Ventilator 100 03/29/19 08:32 114 31 100 03/29/19 08:30 112 29 132/92 96 Mechanical Ventilator 100 03/29/19 08:00 98.8 112 28 131/89 97 Mechanical Ventilator 100 03/29/19 08:00 21 Mechanical Ventilator 100 03/29/19 08:00 Endotracheal Tube 03/29/19 08:00 100 03/29/19 07:43 107 03/29/19 07:42 27 Mechanical Ventilator 100 03/29/19 07:09 107 28 95 Mechanical Ventilator 100 111 28 100 03/29/19 07:00 108 29 127/83 96 Mechanical Ventilator 100 03/29/19 07:00 26 Mechanical Ventilator 03/29/19 06:30 105 29 03/29/19 06:30 106 29 124/81 96 Mechanical Ventilator 100 03/29/19 06:00 26 Mechanical Ventilator 03/29/19 06:00 109 29 126/88 95 Mechanical Ventilator 100 03/29/19 05:30 101 28 127/90 95 Mechanical Ventilator 100 03/29/19 05:20 110 30 100 Mechanical Ventilator 95 90 26 100 03/29/19 05:00 98 28 123/80 97 Mechanical Ventilator 100 03/29/19 05:00 28 Mechanical Ventilator 03/29/19 04:30 97 29 118/81 100 Mechanical Ventilator 100 03/29/19 04:00 99 26 119/79 99 Mechanical Ventilator 100 03/29/19 04:00 28 Mechanical Ventilator 03/29/19 04:00 Endotracheal Tube 03/29/19 04:00 106 03/29/19 04:00 100 03/29/19 03:30 96 16 112/75 100 Mechanical Ventilator 100 03/29/19 03:07 90 26 100 Mechanical Ventilator 95 90 26 100 03/29/19 03:00 26 Mechanical Ventilator 03/29/19 03:00 90 26 115/78 100 Mechanical Ventilator 100 03/29/19 02:30 90 26 109/75 100 Mechanical Ventilator 100 03/29/19 02:00 26 Mechanical Ventilator 03/29/19 02:00 91 26 110/71 100 Mechanical Ventilator 100 03/29/19 01:30 93 26 107/70 100 Mechanical Ventilator 100 03/29/19 01:10 97 26 95 03/29/19 01:00 94 26 107/65 100 Mechanical Ventilator 100 03/29/19 01:00 26 Mechanical Ventilator 03/29/19 00:30 95 26 100/67 100 Mechanical Ventilator 100 03/29/19 00:00 100 26 106/68 100 Mechanical Ventilator 100 03/29/19 00:00 108 03/29/19 00:00 26 Mechanical Ventilator 03/29/19 00:00 100 03/29/19 00:00 Endotracheal Tube 03/28/19 23:30 103 17 108/66 100 Mechanical Ventilator 100 03/28/19 23:07 116 32 91 Mechanical Ventilator 95 116 32 100 03/28/19 23:00 24 Mechanical Ventilator 03/28/19 23:00 115 31 112/81 86 Mechanical Ventilator 100 03/28/19 22:30 120 30 129/85 86 Mechanical Ventilator 100 03/28/19 22:00 29 Mechanical Ventilator 03/28/19 22:00 115 33 100/72 93 Mechanical Ventilator 100 03/28/19 21:30 121 24 100/72 95 Mechanical Ventilator 100 03/28/19 21:15 108 30 119/74 94 Mechanical Ventilator 100 03/28/19 21:00 28 03/28/19 21:00 108 29 115/74 94 Mechanical Ventilator 100 03/28/19 21:00 108 30 95 03/28/19 20:45 107 29 115/74 91 Mechanical Ventilator 100 03/28/19 20:30 108 28 120/77 90 Mechanical Ventilator 100 03/28/19 20:15 107 29 123/74 94 Mechanical Ventilator 100 03/28/19 20:00 106 26 121/76 97 Mechanical Ventilator 100 03/28/19 20:00 28 Mechanical Ventilator 03/28/19 20:00 105 03/28/19 20:00 100 03/28/19 20:00 Endotracheal Tube 03/28/19 19:45 100 6 110/76 100 Mechanical Ventilator 100 03/28/19 19:30 99.2 102 0 113/76 100 Mechanical Ventilator 100 03/28/19 19:18 107 26 95 Mechanical Ventilator 95 107 26 100 03/28/19 19:00 108 25 120/76 96 Mechanical Ventilator 100 03/28/19 19:00 25 Mechanical Ventilator 100 03/28/19 18:30 110 27 122/80 95 Mechanical Ventilator 100 03/28/19 18:30 32 Mechanical Ventilator 95 03/28/19 18:24 100 03/28/19 18:00 108 27 118/72 98 Mechanical Ventilator 100 03/28/19 18:00 27 Mechanical Ventilator 100 03/28/19 17:30 112 27 127/77 97 Mechanical Ventilator 100 03/28/19 17:25 109 28 98 Mechanical Ventilator 95 112 28 100 03/28/19 17:15 116 29 149/118 91 Mechanical Ventilator 100 03/28/19 17:00 110 28 128/77 96 Mechanical Ventilator 100 03/28/19 17:00 28 Mechanical Ventilator 95 03/28/19 17:00 95 03/28/19 16:45 111 27 128/86 97 Mechanical Ventilator 100 03/28/19 16:45 28 Mechanical Ventilator 100 03/28/19 16:44 27 Mechanical Ventilator 100 03/28/19 16:30 118 30 140/82 93 Mechanical Ventilator 100 03/28/19 16:15 110 25 127/78 100 Mechanical Ventilator 100 03/28/19 16:00 100 03/28/19 16:00 26 Mechanical Ventilator 100 03/28/19 16:00 98.8 109 26 131/81 99 Mechanical Ventilator 100 03/28/19 16:00 Endotracheal Tube 03/28/19 16:00 106 03/28/19 15:50 100 03/28/19 15:45 112 26 129/79 100 Mechanical Ventilator 100 03/28/19 15:30 110 26 120/81 100 Mechanical Ventilator 100 03/28/19 15:15 120 30 132/82 90 Mechanical Ventilator 100 03/28/19 15:08 108 26 98 Mechanical Ventilator 100 112 28 100 03/28/19 15:00 108 29 114/69 98 Mechanical Ventilator 100 03/28/19 15:00 26 Mechanical Ventilator 100 03/28/19 14:45 107 26 119/71 99 Mechanical Ventilator 100 03/28/19 14:30 109 28 122/72 97 Mechanical Ventilator 100 03/28/19 14:15 108 27 117/70 98 Mechanical Ventilator 100 03/28/19 14:00 108 29 120/67 95 Mechanical Ventilator 100 03/28/19 14:00 29 Mechanical Ventilator 100 03/28/19 13:45 106 26 113/68 96 Mechanical Ventilator 100 Intake and Output 03/28/19 03/29/19 18:59 06:59 Intake Total 1629.25 ml 1249.500 ml Output Total 970 ml 885 ml Balance 659.25 ml 364.500 ml IV Total 1629.25 ml 1249.500 ml Output Urine Total 970 ml 885 ml Laboratory Tests 03/28/19 16:10: Lactic Acid Level 1.70, Ionized Calcium (Measured) 0.86L 03/29/19 06:20: Lactic Acid Level 2.40H, Ionized Calcium (Measured) 0.92L, White Blood Count 6.7 , Red Blood Count 2.95L, Hemoglobin 9.3L, Hematocrit 26.8L, Mean Corpuscular Volume 91, Mean Corpuscular Hemoglobin 31.4H, Mean Corpuscular Hemoglobin Concent 34.5, Red Cell Distribution Width 14.4, Platelet Count 68#L, Mean Platelet Volume 6.6, Neutrophils (%) (Auto) , Lymphocytes (%) (Auto) , Monocytes (%) (Auto) , Eosinophils (%) (Auto) , Basophils (%) (Auto) , Differential Total Cells Counted 100, Neutrophils % (Manual) 84H, Lymphocytes % (Manual) 6L, Monocytes % (Manual) 3, Eosinophils % (Manual) 1, Basophils % ( Manual) 0, Band Neutrophils 6, Platelet Estimate DecreasedL, Platelet Morphology Normal, Anisocytosis 1+, Prothrombin Time 14.1H, Prothromb Time International Ratio 1.3H, Activated Partial Thromboplast Time 27, Fibrinogen 329 , Sodium Level 140, Potassium Level 3.6, Chloride Level 106, Carbon Dioxide Level 21, Anion Gap 13, Blood Urea Nitrogen 25H, Creatinine 4.7H, Estimat Glomerular Filtration Rate 12.4, Glucose Level 91, Uric Acid 9.5H, Calcium Level 6.7L, Phosphorus Level 4.1, Magnesium Level 1.7L, Total Bilirubin 1.4H, Direct Bilirubin 1.0H, Gamma Glutamyl Transpeptidase 1029H, Aspartate Amino Transf (AST/SGOT) 4012H, Alanine Aminotransferase (ALT/SGPT) 2865H, Alkaline Phosphatase 558H, Lactate Dehydrogenase 1829H, Troponin I 0.037, C-Reactive Protein, Quantitative 17.3H, Pro-B-Type Natriuretic Peptide 2675H, Total Protein 5.2L, Albumin 2.1L, Globulin 3.1, Albumin/Globulin Ratio 0.7L, Lipase 21L, Random Vancomycin Level 9.2 03/29/19 08:25: Arterial Blood pH 7.386, Arterial Blood Partial Pressure CO2 31.0L, Arterial Blood Partial Pressure O2 59.0L, Arterial Blood HCO3 18.2L, Arterial Blood Oxygen Saturation 89.5*L, Arterial Blood Base Excess -6.0L, Amarjit Test Positive 03/29/19 09:15: Lactic Acid Level 2.30H, Urine Opiates Screen Negative, Urine Barbiturates Screen Negative, Phencyclidine (PCP) Screen Negative, Urine Amphetamines Screen Negative, Urine Benzodiazepines Screen PositiveH, Urine Cocaine Screen Negative , Urine Marijuana (THC) Screen Negative 03/29/19 12:17: Arterial Blood pH 7.356, Arterial Blood Partial Pressure CO2 30.9L, Arterial Blood Partial Pressure O2 67.9L, Arterial Blood HCO3 16.9*L, Arterial Blood Oxygen Saturation 91.9L, Arterial Blood Base Excess -7.6L, Amarjit Test Positive Height (Feet): 5 Height (Inches): 2.00 Weight (Pounds): 178 EENT: other - VENTED Cardiovascular: tachycardia Respiratory/Chest: decreased breath sounds Abdomen: distended Amrit Lopez MD Mar 29, 2019 13:43
--- NOTE | 2019-03-29 14:46 | Surgery Progress Note ---
Surgery Progress Note Subjective Procedure Performed right femoral central venous catheter insertion Additional Comments subhash IJ placed plan for HD labs worse tachy prognosis guarded Objective Last 24 Hour Vital Signs Date Time Temp Pulse Resp B/P (MAP) Pulse Ox O2 Delivery O2 Flow Rate FiO2 03/29/19 13:04 130 32 100 03/29/19 13:00 99.6 126 32 92 Mechanical Ventilator 100 03/29/19 12:00 100 03/29/19 12:00 31 Mechanical Ventilator 100 03/29/19 12:00 Endotracheal Tube 03/29/19 12:00 137 31 140/80 93 Mechanical Ventilator 100 03/29/19 11:30 135 35 155/76 88 Mechanical Ventilator 100 03/29/19 11:00 116 35 130/84 91 Mechanical Ventilator 100 03/29/19 11:00 17 Mechanical Ventilator 100 03/29/19 10:37 117 34 100 03/29/19 10:30 117 32 136/89 93 Mechanical Ventilator 100 03/29/19 10:00 119 35 132/95 92 Mechanical Ventilator 100 03/29/19 10:00 18 Mechanical Ventilator 100 03/29/19 09:30 112 30 133/88 99 Mechanical Ventilator 100 03/29/19 09:00 115 31 143/83 96 Mechanical Ventilator 100 03/29/19 09:00 23 Mechanical Ventilator 100 03/29/19 08:32 114 31 100 03/29/19 08:30 112 29 132/92 96 Mechanical Ventilator 100 03/29/19 08:00 98.8 112 28 131/89 97 Mechanical Ventilator 100 03/29/19 08:00 21 Mechanical Ventilator 100 03/29/19 08:00 Endotracheal Tube 03/29/19 08:00 100 03/29/19 07:43 107 03/29/19 07:42 27 Mechanical Ventilator 100 03/29/19 07:09 107 28 95 Mechanical Ventilator 100 111 28 100 03/29/19 07:00 108 29 127/83 96 Mechanical Ventilator 100 03/29/19 07:00 26 Mechanical Ventilator 03/29/19 06:30 105 29 03/29/19 06:30 106 29 124/81 96 Mechanical Ventilator 100 03/29/19 06:00 26 Mechanical Ventilator 03/29/19 06:00 109 29 126/88 95 Mechanical Ventilator 100 03/29/19 05:30 101 28 127/90 95 Mechanical Ventilator 100 03/29/19 05:20 110 30 100 Mechanical Ventilator 95 90 26 100 03/29/19 05:00 98 28 123/80 97 Mechanical Ventilator 100 03/29/19 05:00 28 Mechanical Ventilator 03/29/19 04:30 97 29 118/81 100 Mechanical Ventilator 100 03/29/19 04:00 99 26 119/79 99 Mechanical Ventilator 100 03/29/19 04:00 28 Mechanical Ventilator 03/29/19 04:00 Endotracheal Tube 03/29/19 04:00 106 03/29/19 04:00 100 03/29/19 03:30 96 16 112/75 100 Mechanical Ventilator 100 03/29/19 03:07 90 26 100 Mechanical Ventilator 95 90 26 100 03/29/19 03:00 26 Mechanical Ventilator 03/29/19 03:00 90 26 115/78 100 Mechanical Ventilator 100 03/29/19 02:30 90 26 109/75 100 Mechanical Ventilator 100 03/29/19 02:00 26 Mechanical Ventilator 03/29/19 02:00 91 26 110/71 100 Mechanical Ventilator 100 03/29/19 01:30 93 26 107/70 100 Mechanical Ventilator 100 03/29/19 01:10 97 26 95 03/29/19 01:00 94 26 107/65 100 Mechanical Ventilator 100 03/29/19 01:00 26 Mechanical Ventilator 03/29/19 00:30 95 26 100/67 100 Mechanical Ventilator 100 03/29/19 00:00 100 26 106/68 100 Mechanical Ventilator 100 03/29/19 00:00 108 03/29/19 00:00 26 Mechanical Ventilator 03/29/19 00:00 100 03/29/19 00:00 Endotracheal Tube 03/28/19 23:30 103 17 108/66 100 Mechanical Ventilator 100 03/28/19 23:07 116 32 91 Mechanical Ventilator 95 116 32 100 03/28/19 23:00 24 Mechanical Ventilator 03/28/19 23:00 115 31 112/81 86 Mechanical Ventilator 100 03/28/19 22:30 120 30 129/85 86 Mechanical Ventilator 100 03/28/19 22:00 29 Mechanical Ventilator 03/28/19 22:00 115 33 100/72 93 Mechanical Ventilator 100 03/28/19 21:30 121 24 100/72 95 Mechanical Ventilator 100 03/28/19 21:15 108 30 119/74 94 Mechanical Ventilator 100 03/28/19 21:00 28 03/28/19 21:00 108 29 115/74 94 Mechanical Ventilator 100 03/28/19 21:00 108 30 95 03/28/19 20:45 107 29 115/74 91 Mechanical Ventilator 100 03/28/19 20:30 108 28 120/77 90 Mechanical Ventilator 100 03/28/19 20:15 107 29 123/74 94 Mechanical Ventilator 100 03/28/19 20:00 106 26 121/76 97 Mechanical Ventilator 100 03/28/19 20:00 28 Mechanical Ventilator 03/28/19 20:00 105 03/28/19 20:00 100 03/28/19 20:00 Endotracheal Tube 03/28/19 19:45 100 6 110/76 100 Mechanical Ventilator 100 03/28/19 19:30 99.2 102 0 113/76 100 Mechanical Ventilator 100 03/28/19 19:18 107 26 95 Mechanical Ventilator 95 107 26 100 03/28/19 19:00 108 25 120/76 96 Mechanical Ventilator 100 03/28/19 19:00 25 Mechanical Ventilator 100 03/28/19 18:30 110 27 122/80 95 Mechanical Ventilator 100 03/28/19 18:30 32 Mechanical Ventilator 95 03/28/19 18:24 100 03/28/19 18:00 108 27 118/72 98 Mechanical Ventilator 100 03/28/19 18:00 27 Mechanical Ventilator 100 03/28/19 17:30 112 27 127/77 97 Mechanical Ventilator 100 03/28/19 17:25 109 28 98 Mechanical Ventilator 95 112 28 100 03/28/19 17:15 116 29 149/118 91 Mechanical Ventilator 100 03/28/19 17:00 110 28 128/77 96 Mechanical Ventilator 100 03/28/19 17:00 28 Mechanical Ventilator 95 03/28/19 17:00 95 03/28/19 16:45 111 27 128/86 97 Mechanical Ventilator 100 03/28/19 16:45 28 Mechanical Ventilator 100 03/28/19 16:44 27 Mechanical Ventilator 100 03/28/19 16:30 118 30 140/82 93 Mechanical Ventilator 100 03/28/19 16:15 110 25 127/78 100 Mechanical Ventilator 100 03/28/19 16:00 100 03/28/19 16:00 26 Mechanical Ventilator 100 03/28/19 16:00 98.8 109 26 131/81 99 Mechanical Ventilator 100 03/28/19 16:00 Endotracheal Tube 03/28/19 16:00 106 12/2/19 15:50 100 03/28/19 15:45 112 26 129/79 100 Mechanical Ventilator 100 03/28/19 15:30 110 26 120/81 100 Mechanical Ventilator 100 03/28/19 15:15 120 30 132/82 90 Mechanical Ventilator 100 03/28/19 15:08 108 26 98 Mechanical Ventilator 100 112 28 100 03/28/19 15:00 108 29 114/69 98 Mechanical Ventilator 100 03/28/19 15:00 26 Mechanical Ventilator 100 I&O Intake and Output 03/28/19 03/29/19 18:59 06:59 Intake Total 1629.25 ml 1249.500 ml Output Total 970 ml 885 ml Balance 659.25 ml 364.500 ml IV Total 1629.25 ml 1249.500 ml Output Urine Total 970 ml 885 ml Cardiovascular: other Respiratory: decreased breath sounds Abdomen: soft, distended, decreased bowel sounds Extremities: edema, no cyanosis Laboratory Tests Test 03/28/19 16:10 03/29/19 06:20 03/29/19 08:25 03/29/19 09:15 Lactic Acid Level 1.70 mmol/L (0.4-2.0) 2.40 mmol/L (0.4-2.0) H 2.30 mmol/L (0.66-2.22) H Ionized Calcium (Measured) 0.86 mmol/L (1.10-1.35) L 0.92 mmol/L (1.10-1.35) L White Blood Count 6.7 K/UL (4.8-10.8) Red Blood Count 2.95 M/UL (4.20-5.40) L Hemoglobin 9.3 G/DL (12.0-16.0) L Hematocrit 26.8 % (37.0-47.0) L Mean Corpuscular Volume 91 FL (80-99) Mean Corpuscular Hemoglobin 31.4 PG (27.0-31.0) H Mean Corpuscular Hemoglobin Concent 34.5 G/DL (32.0-36.0) Red Cell Distribution Width 14.4 % (11.6-14.8) Platelet Count 68 K/UL (150-450) #L Mean Platelet Volume 6.6 FL (6.5-10.1) Neutrophils (%) (Auto) % (45.0-75.0) Lymphocytes (%) (Auto) % (20.0-45.0) Monocytes (%) (Auto) % (1.0-10.0) Eosinophils (%) (Auto) % (0.0-3.0) Basophils (%) (Auto) % (0.0-2.0) Differential Total Cells Counted 100 Neutrophils % (Manual) 84 % (45-75) H Lymphocytes % (Manual) 6 % (20-45) L Monocytes % (Manual) 3 % (1-10) Eosinophils % (Manual) 1 % (0-3) Basophils % (Manual) 0 % (0-2) Band Neutrophils 6 % (0-8) Platelet Estimate Decreased L Platelet Morphology Normal Anisocytosis 1+ Prothrombin Time 14.1 SEC (9.30-11.50) H Prothromb Time International Ratio 1.3 (0.9-1.1) H Activated Partial Thromboplast Time 27 SEC (23-33) Fibrinogen 329 mg/dL (200-400) Sodium Level 140 MMOL/L (136-145) Potassium Level 3.6 MMOL/L (3.5-5.1) Chloride Level 106 MMOL/L (98-107) Carbon Dioxide Level 21 MMOL/L (21-32) Anion Gap 13 mmol/L (5-15) Blood Urea Nitrogen 25 mg/dL (7-18) H Creatinine 4.7 MG/DL (0.55-1.30) H Estimat Glomerular Filtration Rate 12.4 mL/min (>60) Glucose Level 91 MG/DL (74-106) Uric Acid 9.5 MG/DL (2.6-7.2) H Calcium Level 6.7 MG/DL (8.5-10.1) L Phosphorus Level 4.1 MG/DL (2.5-4.9) Magnesium Level 1.7 MG/DL (1.8-2.4) L Total Bilirubin 1.4 MG/DL (0.2-1.0) H Direct Bilirubin 1.0 MG/DL (0.0-0.3) H Gamma Glutamyl Transpeptidase 1029 U/L (5-85) H Aspartate Amino Transf (AST/SGOT) 4012 U/L (15-37) H Alanine Aminotransferase (ALT/SGPT) 2865 U/L (12-78) H Alkaline Phosphatase 558 U/L (46-116) H Lactate Dehydrogenase 1829 U/L (81-234) H Troponin I 0.037 ng/mL (0.000-0.056) C-Reactive Protein, Quantitative 17.3 mg/dL (0.00-0.90) H Pro-B-Type Natriuretic Peptide 2675 pg/mL (0-125) H Total Protein 5.2 G/DL (6.4-8.2) L Albumin 2.1 G/DL (3.4-5.0) L Globulin 3.1 g/dL Albumin/Globulin Ratio 0.7 (1.0-2.7) L Lipase 21 U/L (73-393) L Random Vancomycin Level 9.2 ug/mL Arterial Blood pH 7.386 (7.350-7.450) Arterial Blood Partial Pressure CO2 31.0 mmHg (35.0-45.0) L Arterial Blood Partial Pressure O2 59.0 mmHg (75.0-100.0) L Arterial Blood HCO3 18.2 mmol/L (22.0-26.0) L Arterial Blood Oxygen Saturation 89.5 % (95-100) *L Arterial Blood Base Excess -6.0 (-2-2) L Amarjit Test Positive Urine Opiates Screen Negative (NEGATIVE) Urine Barbiturates Screen Negative (NEGATIVE) Phencyclidine (PCP) Screen Negative (NEGATIVE) Urine Amphetamines Screen Negative (NEGATIVE) Urine Benzodiazepines Screen Positive (NEGATIVE) H Urine Cocaine Screen Negative (NEGATIVE) Urine Marijuana (THC) Screen Negative (NEGATIVE) Test 03/29/19 12:17 Arterial Blood pH 7.356 (7.350-7.450) Arterial Blood Partial Pressure CO2 30.9 mmHg (35.0-45.0) L Arterial Blood Partial Pressure O2 67.9 mmHg (75.0-100.0) L Arterial Blood HCO3 16.9 mmol/L (22.0-26.0) *L Arterial Blood Oxygen Saturation 91.9 % (95-100) L Arterial Blood Base Excess -7.6 (-2-2) L Amarjit Test Positive Plan Problems: (1) Abdominal pain Assessment & Plan: 43F presented with abd pain per report 01/04 generalized unable to obtain exam now that she is intubated in distress labs noted ventral incisional hernia reducible abd soft -npo -iv fluids -ng tube to low intermittent suction -will order imaging when stabilized -HD as per renal -appreciate ICU care will follow with recs thank you (2) Ventral hernia (3) Acute on chronic pancreatitis Assessment & Plan: Evidence of acute on chronic pancreatitis. No pseudocyst. Hepatomegaly with severe steatosis. Mild hiatal hernia. 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 see note trend labs will follow with recLefty Ball Mar 29, 2019 14:46
[2019-03-29] MEDS: Sodium Bicarbonate 150 ML in D5W 1000ml 1,000 ML IV SCH (16:36)
--- NOTE | 2019-03-29 18:37 | Internal Med Progress Note ---
Subjective Date of Service: Mar 29, 2019 Physician Name Marshal Gilbert Attending Physician Shree Mcintyre MD Current Medications Medications (Trade) Dose Ordered Sig/Greta Route PRN Reason Start Time Stop Time Status Last Admin Dose Admin Acetaminophen (Tylenol) 650 mg Q4H PRN ORAL T>100.5 03/26/19 20:00 04/25/19 19:59 Albuterol/ Ipratropium (Albuterol/ Ipratropium) 3 ml Q4H PRN HHN Shortness of Breath 03/26/19 20:00 03/31/19 19:59 03/27/19 11:19 Chlorhexidine Gluconate (Hetal-Hex 2%) 1 applic DAILY@2000 TOPIC 03/27/19 20:00 04/26/19 19:59 03/28/19 20:51 Dextrose (Dextrose 50%) 25 ml Q30M PRN IV Hypoglycemia 03/28/19 11:30 04/27/19 11:29 Dextrose (Dextrose 50%) 50 ml Q30M PRN IV Hypoglycemia 03/28/19 11:30 04/27/19 11:29 Guaifenesin (Robitussin) 200 mg Q4H PRN ORAL For Cough 03/27/19 11:15 04/26/19 11:14 03/27/19 22:54 Insulin Aspart (NovoLOG) EVERY 4 HOURS SUBQ 03/28/19 17:00 04/27/19 11:59 03/28/19 20:53 Insulin Detemir (Levemir) 8 units BID SUBQ 03/29/19 09:00 04/27/19 11:59 03/29/19 10:25 Iopamidol (Isovue-300 100ml) 100 ml NOW PRN INJ Radiology Procedure 03/26/19 17:00 Ipratropium [place] (Atrovent) 500 mcg Q4HRT HHN 03/27/19 19:00 04/01/19 18:59 03/29/19 15:15 Lorazepam (Ativan 2mg/ml 1ml) 1 mg Q2H PRN IV agitation 03/27/19 18:00 04/02/19 19:59 03/27/19 23:49 Midazolam HCl 100 ml @ 0 mls/hr Q24H PRN IV Agitation 03/28/19 00:15 04/04/19 00:14 03/29/19 07:42 Morphine Sulfate (Morphine Sulfate) 2 mg Q2H PRN IVP Severe Pain (Pain Scale 7-10) 03/28/19 20:15 04/04/19 20:14 03/28/19 23:05 Nitroglycerin (Ntg) 0.4 mg Q5MIN X 3 DOSES PRN SL Prn Chest Pain 03/26/19 20:15 04/25/19 20:14 Ondansetron HCl (Zofran) 4 mg Q6H PRN IVP Nausea & Vomiting 03/26/19 20:00 04/25/19 19:59 Pantoprazole 80 mg/Sodium Chloride 250 ml @ 25 mls/hr Q10H IV 03/28/19 09:00 04/27/19 08:59 03/29/19 14:40 Phytonadione (Vitamin K) 10 mg DAILY SUBQ 03/28/19 11:00 04/27/19 10:59 03/29/19 09:03 Piperacillin Sod/ Tazobactam Sod 3.375 gm/Sodium Chloride 110 ml @ 27.5 mls/hr Q12HR@0600,1800 IVPB 03/29/19 18:00 04/05/19 17:59 Polyethylene Glycol (Miralax) 17 gm DAILYPRN PRN ORAL Constipation 03/26/19 20:00 04/25/19 19:59 Sodium Bicarbonate 150 ml/Dextrose 1,150 ml @ 30 mls/hr Q24H IV 03/29/19 13:30 04/28/19 13:29 Thiamine HCl 100 mg/Sodium Chloride 56 ml @ 112 mls/hr DAILY IVPB 03/29/19 09:00 04/28/19 08:59 03/29/19 09:02 Vancomycin HCl (Vanco rx to dose) 1 ea DAILY PRN MISC . 03/28/19 09:15 04/27/19 09:14 Allergies: Coded Allergies: No Known Allergies (Unverified , 08/04/18) ROS Limited/Unobtainable: Yes Subjective 43 YO F admitted with diabetic ketoacidosis. Now ARDS and respiratory failure. Intubated and sedated. ICU Objective Last Vital Signs Date Time Temp Pulse Resp B/P (MAP) Pulse Ox O2 Delivery O2 Flow Rate FiO2 03/29/19 17:45 128 38 112/76 93 100 03/29/19 17:05 Mechanical Ventilator 03/29/19 16:00 99.5 03/27/19 15:00 4.0 Laboratory Tests Test 03/29/19 06:20 03/29/19 08:25 03/29/19 09:15 03/29/19 12:17 White Blood Count 6.7 K/UL (4.8-10.8) Red Blood Count 2.95 M/UL (4.20-5.40) L Hemoglobin 9.3 G/DL (12.0-16.0) L Hematocrit 26.8 % (37.0-47.0) L Mean Corpuscular Volume 91 FL (80-99) Mean Corpuscular Hemoglobin 31.4 PG (27.0-31.0) H Mean Corpuscular Hemoglobin Concent 34.5 G/DL (32.0-36.0) Red Cell Distribution Width 14.4 % (11.6-14.8) Platelet Count 68 K/UL (150-450) #L Mean Platelet Volume 6.6 FL (6.5-10.1) Neutrophils (%) (Auto) % (45.0-75.0) Lymphocytes (%) (Auto) % (20.0-45.0) Monocytes (%) (Auto) % (1.0-10.0) Eosinophils (%) (Auto) % (0.0-3.0) Basophils (%) (Auto) % (0.0-2.0) Differential Total Cells Counted 100 Neutrophils % (Manual) 84 % (45-75) H Lymphocytes % (Manual) 6 % (20-45) L Monocytes % (Manual) 3 % (1-10) Eosinophils % (Manual) 1 % (0-3) Basophils % (Manual) 0 % (0-2) Band Neutrophils 6 % (0-8) Platelet Estimate Decreased L Platelet Morphology Normal Anisocytosis 1+ Prothrombin Time 14.1 SEC (9.30-11.50) H Prothromb Time International Ratio 1.3 (0.9-1.1) H Activated Partial Thromboplast Time 27 SEC (23-33) Fibrinogen 329 mg/dL (200-400) Sodium Level 140 MMOL/L (136-145) Potassium Level 3.6 MMOL/L (3.5-5.1) Chloride Level 106 MMOL/L (98-107) Carbon Dioxide Level 21 MMOL/L (21-32) Anion Gap 13 mmol/L (5-15) Blood Urea Nitrogen 25 mg/dL (7-18) H Creatinine 4.7 MG/DL (0.55-1.30) H Estimat Glomerular Filtration Rate 12.4 mL/min (>60) Glucose Level 91 MG/DL (74-106) Lactic Acid Level 2.40 mmol/L (0.4-2.0) H 2.30 mmol/L (0.66-2.22) H Uric Acid 9.5 MG/DL (2.6-7.2) H Calcium Level 6.7 MG/DL (8.5-10.1) L Ionized Calcium (Measured) 0.92 mmol/L (1.10-1.35) L Phosphorus Level 4.1 MG/DL (2.5-4.9) Magnesium Level 1.7 MG/DL (1.8-2.4) L Total Bilirubin 1.4 MG/DL (0.2-1.0) H Direct Bilirubin 1.0 MG/DL (0.0-0.3) H Gamma Glutamyl Transpeptidase 1029 U/L (5-85) H Aspartate Amino Transf (AST/SGOT) 4012 U/L (15-37) H Alanine Aminotransferase (ALT/SGPT) 2865 U/L (12-78) H Alkaline Phosphatase 558 U/L (46-116) H Lactate Dehydrogenase 1829 U/L (81-234) H Troponin I 0.037 ng/mL (0.000-0.056) C-Reactive Protein, Quantitative 17.3 mg/dL (0.00-0.90) H Pro-B-Type Natriuretic Peptide 2675 pg/mL (0-125) H Total Protein 5.2 G/DL (6.4-8.2) L Albumin 2.1 G/DL (3.4-5.0) L Globulin 3.1 g/dL Albumin/Globulin Ratio 0.7 (1.0-2.7) L Lipase 21 U/L (73-393) L Random Vancomycin Level 9.2 ug/mL Arterial Blood pH 7.386 (7.350-7.450) 7.356 (7.350-7.450) Arterial Blood Partial Pressure CO2 31.0 mmHg (35.0-45.0) L 30.9 mmHg (35.0-45.0) L Arterial Blood Partial Pressure O2 59.0 mmHg (75.0-100.0) L 67.9 mmHg (75.0-100.0) L Arterial Blood HCO3 18.2 mmol/L (22.0-26.0) L 16.9 mmol/L (22.0-26.0) *L Arterial Blood Oxygen Saturation 89.5 % (95-100) *L 91.9 % (95-100) L Arterial Blood Base Excess -6.0 (-2-2) L -7.6 (-2-2) L Amarjit Test Positive Positive Urine Opiates Screen Negative (NEGATIVE) Urine Barbiturates Screen Negative (NEGATIVE) Phencyclidine (PCP) Screen Negative (NEGATIVE) Urine Amphetamines Screen Negative (NEGATIVE) Urine Benzodiazepines Screen Positive (NEGATIVE) H Urine Cocaine Screen Negative (NEGATIVE) Urine Marijuana (THC) Screen Negative (NEGATIVE) Test 03/29/19 15:30 Lactic Acid Level 1.80 mmol/L (0.4-2.0) Microbiology Date/Time Source Procedure Growth Status 03/28/19 03:00 Sputum Gram Stain - Final Resulted 03/28/19 03:00 Sputum Sputum Culture Pending Resulted 03/26/19 19:50 Urine,Clean Catch Urine Culture - Final Mixed Gram Positive Organism Complete Intake and Output 03/28/19 03/29/19 19:00 07:00 Intake Total 1679.75 ml 1253.500 ml Output Total 1045 ml 810 ml Balance 634.75 ml 443.500 ml IV Total 1679.75 ml 1253.500 ml Output Urine Total 1045 ml 810 ml Assessment/Plan Assessment/Plan ASSESSMENT: This is a 43-year-old female with: 1. Abdominal pain. 2. Acute on chronic pancreatitis. 3. Diabetic ketoacidosis. 4. Hyperglycemia. 5. Renal failure. 6. Diabetes type 2. 7. Hypertension. 8. Ventral hernia. 9. ARDs/bilateral infiltrates/Respiratory failure TREATMENT: 1. Abdominal pain/acute pancreatitis. A Gastroenterology consultation has been obtained with Dr. Monty Jaimes. We will follow recommendations of Gastroenterology. The patient is currently NPO. 2. Diabetic ketoacidosis/hyperglycemia. An Endocrinology consultation is pending with Dr. Joseph Saleem. The patient has been placed on a regular insulin drip. We will follow recommendations of Endocrinology. 3. Renal failure. A Nephrology consultation has been obtained with Dr. Lopez. We will follow recommendations of Nephrology. 4. Hypertension. Continue amlodipine as above. 5. Ventral hernia. 6. Mechanical vent per pulmonary=Balfe 7. ABX=zosyn and vanco Marshal Gilbert MD Mar 29, 2019 18:37
[2019-03-29] MEDS: Dyna-Hex 2% Top Sol 2oz TOPIC SCH (20:02)
[2019-03-30] VITALS (41 sets, daily range): BP systolic 89–137; BP diastolic 54–98
[2019-03-30] MEDS: Pantoprazole 80 MG in NS 250 ML IV SCH (00:20)
[2019-03-30] MEDS: NovoLOG Insulin Flexpen SUBQ SCH ×6 (01:00→20:32)
[2019-03-30] MEDS: Ipratropium 0.02% Inh Soln 2.5ml UD HHN SCH ×5 (03:23→19:00)
[2019-03-30] MEDS: Versed 50mg/D5W 100ml 100 ML IV PRN ×4 (03:34→20:33)
[2019-03-30 05:47] LABS: HEMATOCRIT 24.4 % (37.0-47.0); HEMOGLOBIN 8.5 G/DL (12.0-16.0); MEAN CORPUSCULAR VOLUME 90 FL (80-99); PLATELET COUNT 70 K/UL (150-450); RED BLOOD COUNT 2.71 M/UL (4.20-5.40); RED CELL DISTRIBUTION WIDTH 14.2 % (11.6-14.8); WHITE BLOOD COUNT 10.4 K/UL (4.8-10.8)
[2019-03-30] MEDS: Piperacillin/Tazobactam 3.375 GM in NS 110 ML IVPB SCH (05:47)
--- NOTE | 2019-03-30 06:40 | General Progress Note ---
Assessment/Plan Problem List: (1) DKA (diabetic ketoacidoses) ICD Codes: E11.10 - Type 2 diabetes mellitus with ketoacidosis without coma SNOMED: 416600130, 52343039 Qualifiers: Qualified Codes: E13.10 - Other specified diabetes mellitus with ketoacidosis without coma (2) Diabetes mellitus out of control ICD Codes: E11.65 - Type 2 diabetes mellitus with hyperglycemia SNOMED: 79998619, 056190689 (3) Acute on chronic pancreatitis ICD Codes: K85.90 - Acute pancreatitis without necrosis or infection, unspecified; K86.1 - Other chronic pancreatitis SNOMED: 920501308, 527533499 (4) Respiratory failure ICD Codes: J96.90 - Respiratory failure, unspecified, unspecified whether with hypoxia or hypercapnia SNOMED: 393230361 Assessment/Plan: DKA resolved reduce Levemir to 6 units bid continue NISS every 4 hours Subjective ROS Limited/Unobtainable: Yes Allergies: Coded Allergies: No Known Allergies (Unverified , 08/04/18) Subjective events noted glucose values are controlled Item Value Date Time Bedside Blood Glucose 104 mg/dl 03/30/19 0438 Bedside Blood Glucose 72 mg/dl 03/30/19 0100 Bedside Blood Glucose 70 mg/dl 03/29/19 2100 Bedside Blood Glucose 86 mg/dl 03/29/19 1759 Bedside Blood Glucose 102 mg/dl 03/29/19 1300 Bedside Blood Glucose 89 mg/dl 03/29/19 1025 Glucose Level 91 MG/DL 03/29/19 0620 Bedside Blood Glucose 82 mg/dl 03/29/19 0500 Bedside Blood Glucose 83 mg/dl 03/29/19 0100 Objective Last 24 Hour Vital Signs Date Time Temp Pulse Resp B/P (MAP) Pulse Ox O2 Delivery O2 Flow Rate FiO2 03/30/19 06:00 35 Mechanical Ventilator 100 03/30/19 05:39 112 34 100 03/30/19 05:30 35 Mechanical Ventilator 100 03/30/19 05:00 33 Mechanical Ventilator 100 03/30/19 05:00 106 35 113/76 97 Mechanical Ventilator 100 03/30/19 04:30 107 34 108/72 97 Mechanical Ventilator 100 03/30/19 04:00 Mechanical Ventilator 03/30/19 04:00 100 03/30/19 04:00 33 Mechanical Ventilator 100 03/30/19 04:00 98.9 111 33 125/78 97 Mechanical Ventilator 03/30/19 03:34 33 Mechanical Ventilator 100 03/30/19 03:30 114 33 132/84 96 Mechanical Ventilator 03/30/19 03:23 110 39 100 Mechanical Ventilator 100 105 30 100 03/30/19 03:02 88 03/30/19 03:00 112 39 109/78 96 Mechanical Ventilator 03/30/19 03:00 29 Mechanical Ventilator 100 03/30/19 02:30 108 34 116/75 97 Mechanical Ventilator 03/30/19 02:00 32 Mechanical Ventilator 100 03/30/19 02:00 101 32 106/73 100 Mechanical Ventilator 03/30/19 01:49 108 39 100 03/30/19 01:30 98 31 110/78 100 Mechanical Ventilator 03/30/19 01:00 26 Mechanical Ventilator 100 03/30/19 01:00 103 26 111/78 98 Mechanical Ventilator 03/30/19 00:30 99 30 99/67 100 Mechanical Ventilator 03/30/19 00:00 98.8 101 33 102/71 100 Mechanical Ventilator 03/30/19 00:00 Mechanical Ventilator 03/30/19 00:00 30 Mechanical Ventilator 100 03/30/19 00:00 100 03/29/19 23:40 100 29 100 Mechanical Ventilator 100 104 30 100 03/29/19 23:30 100 30 105/71 100 Mechanical Ventilator 03/29/19 23:26 100 03/29/19 23:00 103 31 108/78 100 Mechanical Ventilator 03/29/19 23:00 31 Mechanical Ventilator 100 03/29/19 22:30 101 29 110/73 100 Mechanical Ventilator 03/29/19 22:00 34 Mechanical Ventilator 100 03/29/19 22:00 108 34 116/78 100 Mechanical Ventilator 03/29/19 21:30 102 33 102/70 100 Mechanical Ventilator 03/29/19 21:20 105 39 100 03/29/19 21:00 110 38 102/63 100 Mechanical Ventilator 03/29/19 21:00 38 Mechanical Ventilator 100 03/29/19 20:30 108 40 103/69 99 Mechanical Ventilator 03/29/19 20:00 100 03/29/19 20:00 98.9 109 41 97/66 100 Mechanical Ventilator 03/29/19 20:00 41 Mechanical Ventilator 100 03/29/19 20:00 Mechanical Ventilator 03/29/19 19:30 108 37 79/53 100 Mechanical Ventilator 03/29/19 19:24 110 03/29/19 19:19 41 Mechanical Ventilator 100 03/29/19 19:01 110 37 100 03/29/19 19:00 112 39 93/62 97 100 03/29/19 19:00 39 Mechanical Ventilator 100 03/29/19 18:00 125 40 119/73 96 100 03/29/19 18:00 40 Mechanical Ventilator 100 03/29/19 17:45 128 38 112/76 93 100 03/29/19 17:30 125 38 118/70 97 100 03/29/19 17:15 130 37 100 03/29/19 17:15 132 39 124/88 93 100 03/29/19 17:05 43 Mechanical Ventilator 100 03/29/19 17:00 141 39 129/76 91 100 03/29/19 16:50 36 Mechanical Ventilator 100 03/29/19 16:50 140 36 92 100 03/29/19 16:30 141 39 158/96 89 100 03/29/19 16:12 133 03/29/19 16:00 Endotracheal Tube 03/29/19 16:00 31 Mechanical Ventilator 100 03/29/19 16:00 100 03/29/19 16:00 99.5 125 31 131/84 95 100 03/29/19 15:30 113 26 128/82 100 100 03/29/19 15:12 125 31 97 Mechanical Ventilator 100 124 31 100 03/29/19 15:00 30 Mechanical Ventilator 100 03/29/19 15:00 126 30 137/72 96 100 03/29/19 14:30 134 29 139/77 97 100 03/29/19 14:00 37 Mechanical Ventilator 100 03/29/19 14:00 153 37 93 100 03/29/19 13:30 128 35 90 Mechanical Ventilator 100 03/29/19 13:04 130 32 100 03/29/19 13:00 99.6 126 32 92 Mechanical Ventilator 100 03/29/19 13:00 32 Mechanical Ventilator 100 03/29/19 12:30 132 39 92 100 03/29/19 12:00 100 03/29/19 12:00 31 Mechanical Ventilator 100 03/29/19 12:00 Endotracheal Tube 03/29/19 12:00 137 31 140/80 93 Mechanical Ventilator 100 03/29/19 11:36 133 03/29/19 11:30 135 35 155/76 88 Mechanical Ventilator 100 03/29/19 11:00 116 35 130/84 91 Mechanical Ventilator 100 03/29/19 11:00 17 Mechanical Ventilator 100 03/29/19 10:37 117 34 100 03/29/19 10:30 117 32 136/89 93 Mechanical Ventilator 100 03/29/19 10:00 119 35 132/95 92 Mechanical Ventilator 100 03/29/19 10:00 18 Mechanical Ventilator 100 03/29/19 09:30 112 30 133/88 99 Mechanical Ventilator 100 03/29/19 09:00 115 31 143/83 96 Mechanical Ventilator 100 03/29/19 09:00 23 Mechanical Ventilator 100 03/29/19 08:32 114 31 100 03/29/19 08:30 112 29 132/92 96 Mechanical Ventilator 100 03/29/19 08:00 98.8 112 28 131/89 97 Mechanical Ventilator 100 03/29/19 08:00 21 Mechanical Ventilator 100 03/29/19 08:00 Endotracheal Tube 03/29/19 08:00 100 03/29/19 07:43 107 03/29/19 07:42 27 Mechanical Ventilator 100 03/29/19 07:09 107 28 95 Mechanical Ventilator 100 111 28 100 03/29/19 07:00 108 29 127/83 96 Mechanical Ventilator 100 03/29/19 07:00 26 Mechanical Ventilator Intake and Output 03/29/19 03/30/19 19:00 07:00 Intake Total 750.82 ml 793.0 ml Output Total 1255 ml 2505 ml Balance -504.18 ml -1712.0 ml Free Water 30 ml 100 ml IV Total 458.82 ml 528.0 ml Tube Feeding 20 ml 165 ml Blood Product 242 ml Output Urine Total 1255 ml 605 ml Hemodialysis UF 1900 ml # Bowel Movements 2 Laboratory Tests 03/29/19 08:25: Arterial Blood pH 7.386, Arterial Blood Partial Pressure CO2 31.0L, Arterial Blood Partial Pressure O2 59.0L, Arterial Blood HCO3 18.2L, Arterial Blood Oxygen Saturation 89.5*L, Arterial Blood Base Excess -6.0L, Amarjit Test Positive 03/29/19 09:15: Lactic Acid Level 2.30H, Urine Opiates Screen Negative, Urine Barbiturates Screen Negative, Phencyclidine (PCP) Screen Negative, Urine Amphetamines Screen Negative, Urine Benzodiazepines Screen PositiveH, Urine Cocaine Screen Negative , Urine Marijuana (THC) Screen Negative 03/29/19 12:17: Arterial Blood pH 7.356, Arterial Blood Partial Pressure CO2 30.9L, Arterial Blood Partial Pressure O2 67.9L, Arterial Blood HCO3 16.9*L, Arterial Blood Oxygen Saturation 91.9L, Arterial Blood Base Excess -7.6L, Amarjit Test Positive 03/29/19 15:30: Lactic Acid Level 1.80 03/29/19 20:40: Stool Occult Blood [Pending] 03/30/19 03:10: White Blood Count 10.4#, Red Blood Count 2.71L, Hemoglobin 8.5L, Hematocrit 24.4L, Mean Corpuscular Volume 90, Mean Corpuscular Hemoglobin 31.4H, Mean Corpuscular Hemoglobin Concent 34.9, Red Cell Distribution Width 14.2, Platelet Count 70L, Mean Platelet Volume 7.6, Neutrophils (%) (Auto) , Lymphocytes (%) ( Auto) , Monocytes (%) (Auto) , Eosinophils (%) (Auto) , Basophils (%) (Auto) , Neutrophils % (Manual) [Pending], Lymphocytes % (Manual) [Pending], Platelet Estimate [Pending], Platelet Morphology [Pending], Sodium Level [Pending], Potassium Level [Pending], Chloride Level [Pending], Carbon Dioxide Level [ Pending], Blood Urea Nitrogen [Pending], Creatinine [Pending], Estimat Glomerular Filtration Rate [Pending], Glucose Level [Pending], Uric Acid [ Pending], Calcium Level [Pending], Phosphorus Level [Pending], Magnesium Level [ Pending], Total Bilirubin [Pending], Gamma Glutamyl Transpeptidase [Pending], Aspartate Amino Transf (AST/SGOT) [Pending], Alanine Aminotransferase (ALT/SGPT ) [Pending], Alkaline Phosphatase [Pending], C-Reactive Protein, Quantitative [ Pending], Pro-B-Type Natriuretic Peptide [Pending], Total Protein [Pending], Albumin [Pending], Globulin [Pending], Random Vancomycin Level [Pending], Hepatitis A IgM Antibody [Pending], Hepatitis B Surface Antigen [Pending], Hepatitis B Core IgM Antibody [Pending], Hepatitis C Antibody [Pending] Height (Feet): 5 Height (Inches): 2.00 Weight (Pounds): 198 General Appearance: lethargic Neck: normal alignment Cardiovascular: normal rate Respiratory/Chest: decreased breath sounds Abdomen: normal bowel sounds Objective Current Medications Medications (Trade) Dose Ordered Sig/Greta Route PRN Reason Start Time Stop Time Status Last Admin Dose Admin Acetaminophen (Tylenol) 650 mg Q4H PRN ORAL T>100.5 03/26/19 20:00 04/25/19 19:59 Albuterol/ Ipratropium (Albuterol/ Ipratropium) 3 ml Q4H PRN HHN Shortness of Breath 03/26/19 20:00 03/31/19 19:59 03/27/19 11:19 Chlorhexidine Gluconate (Hetal-Hex 2%) 1 applic DAILY@2000 TOPIC 03/27/19 20:00 04/26/19 19:59 03/29/19 20:02 Dextrose (Dextrose 50%) 25 ml Q30M PRN IV Hypoglycemia 03/28/19 11:30 04/27/19 11:29 Dextrose (Dextrose 50%) 50 ml Q30M PRN IV Hypoglycemia 03/28/19 11:30 04/27/19 11:29 Guaifenesin (Robitussin) 200 mg Q4H PRN ORAL For Cough 03/27/19 11:15 04/26/19 11:14 03/27/19 22:54 Insulin Aspart (NovoLOG) EVERY 4 HOURS SUBQ 03/28/19 17:00 04/27/19 11:59 03/28/19 20:53 Insulin Detemir (Levemir) 8 units BID SUBQ 03/29/19 09:00 04/27/19 11:59 03/29/19 10:25 Iopamidol (Isovue-300 100ml) 100 ml NOW PRN INJ Radiology Procedure 03/26/19 17:00 Ipratropium [place] (Atrovent) 500 mcg Q4HRT HHN 03/27/19 19:00 04/01/19 18:59 03/30/19 03:23 Lorazepam (Ativan 2mg/ml 1ml) 1 mg Q2H PRN IV agitation 03/27/19 18:00 04/02/19 19:59 03/27/19 23:49 Midazolam HCl 100 ml @ 0 mls/hr Q24H PRN IV Agitation 03/28/19 00:15 04/04/19 00:14 03/30/19 03:34 Morphine Sulfate (Morphine Sulfate) 2 mg Q2H PRN IVP Severe Pain (Pain Scale 7-10) 03/28/19 20:15 04/04/19 20:14 03/28/19 23:05 Nitroglycerin (Ntg) 0.4 mg Q5MIN X 3 DOSES PRN SL Prn Chest Pain 03/26/19 20:15 04/25/19 20:14 Ondansetron HCl (Zofran) 4 mg Q6H PRN IVP Nausea & Vomiting 03/26/19 20:00 04/25/19 19:59 03/30/19 06:20 Pantoprazole 80 mg/Sodium Chloride 250 ml @ 25 mls/hr Q10H IV 03/28/19 09:00 04/27/19 08:59 03/30/19 00:20 Phytonadione (Vitamin K) 10 mg DAILY SUBQ 03/28/19 11:00 04/27/19 10:59 03/29/19 09:03 Piperacillin Sod/ Tazobactam Sod 3.375 gm/Sodium Chloride 110 ml @ 27.5 mls/hr Q12HR@0600,1800 IVPB 03/29/19 18:00 04/05/19 17:59 03/30/19 05:47 Polyethylene Glycol (Miralax) 17 gm DAILYPRN PRN ORAL Constipation 03/26/19 20:00 04/25/19 19:59 Sodium Bicarbonate 150 ml/Dextrose 1,150 ml @ 30 mls/hr Q24H IV 03/29/19 13:30 04/28/19 13:29 Thiamine HCl 100 mg/Sodium Chloride 56 ml @ 112 mls/hr DAILY IVPB 03/29/19 09:00 04/28/19 08:59 03/29/19 09:02 Vancomycin HCl (Vanco rx to dose) 1 ea DAILY PRN MISC . 03/28/19 09:15 04/27/19 09:14 Joseph Saleem MD Mar 30, 2019 06:40
[2019-03-30 06:41] LABS: ALANINE AMINOTRANSFERASE 1884 U/L (12-78); ALBUMIN/GLOBULIN RATIO 0.6 (1.0-2.7); ALKALINE PHOSPHATASE 532 U/L (46-116); ANION GAP 10 mmol/L (5-15); ASPARTATE AMINO TRANSFERASE 2021 U/L (15-37); BLOOD UREA NITROGEN 19 mg/dL (7-18); CARBON DIOXIDE 27 MMOL/L (21-32); CHLORIDE 102 MMOL/L (98-107); CREATININE 3.6 MG/DL (0.55-1.30); POTASSIUM 3.3 MMOL/L (3.5-5.1); SODIUM 139 MMOL/L (136-145)
[2019-03-30 06:44] LABS: CALCIUM 5.3 MG/DL (8.5-10.1)
[2019-03-30 06:47] LABS: BILIRUBIN,DIRECT 1.4 MG/DL (0.0-0.3)
[2019-03-30 06:48] LABS: PHOSPHORUS 2.8 MG/DL (2.5-4.9)
[2019-03-30] MEDS ORDERED: Vancomycin 1 GM in NS 275 ML IVPB SCH (08:00)
--- NOTE | 2019-03-30 08:55 | Nephrology Progress Note ---
Assessment/Plan Problem List: (1) Acute renal failure (ARF) (2) Respiratory failure (3) DKA (diabetic ketoacidoses) (4) LFT elevation (5) Electrolyte imbalance Assessment: Low Mag and Low Ca (6) Thrombocytopathia Assessment Acute respiratory failure Acute renal failure high LFTs, thrombocytopenia ? HUS ? 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 Ca and Mag IV Vit K Vit D Echo Hyperkinetic wall motion. Left ventricular ejection fraction estimated to be 55-60 %. Moderate left ventricular hypertrophy by 2D. Abd CT: Evidence of acute on chronic pancreatitis. No pseudocyst. Hepatomegaly with severe steatosis. Subjective ROS Limited/Unobtainable: Yes Objective Objective Last 24 Hour Vital Signs Date Time Temp Pulse Resp B/P (MAP) Pulse Ox O2 Delivery O2 Flow Rate FiO2 03/30/19 08:45 120 45 75 03/30/19 07:09 120 46 100 Mechanical Ventilator 100 113 29 100 03/30/19 07:00 120 31 120/90 100 Mechanical Ventilator 100 03/30/19 07:00 32 Mechanical Ventilator 100 03/30/19 06:30 36 Mechanical Ventilator 100 03/30/19 06:30 118 34 03/30/19 06:30 116 34 132/93 97 Mechanical Ventilator 100 03/30/19 06:15 36 Mechanical Ventilator 100 03/30/19 06:00 35 Mechanical Ventilator 100 03/30/19 06:00 116 35 126/85 98 Mechanical Ventilator 100 03/30/19 05:39 112 34 100 03/30/19 05:30 35 Mechanical Ventilator 100 03/30/19 05:30 108 35 120/78 95 Mechanical Ventilator 100 03/30/19 05:00 33 Mechanical Ventilator 100 03/30/19 05:00 106 35 113/76 97 Mechanical Ventilator 100 03/30/19 04:30 107 34 108/72 97 Mechanical Ventilator 100 03/30/19 04:00 Mechanical Ventilator 03/30/19 04:00 100 03/30/19 04:00 33 Mechanical Ventilator 100 03/30/19 04:00 98.9 111 33 125/78 97 Mechanical Ventilator 03/30/19 03:34 33 Mechanical Ventilator 100 03/30/19 03:30 114 33 132/84 96 Mechanical Ventilator 03/30/19 03:23 110 39 100 Mechanical Ventilator 100 105 30 100 03/30/19 03:02 88 03/30/19 03:00 112 39 109/78 96 Mechanical Ventilator 03/30/19 03:00 29 Mechanical Ventilator 100 03/30/19 02:30 108 34 116/75 97 Mechanical Ventilator 03/30/19 02:00 32 Mechanical Ventilator 100 03/30/19 02:00 101 32 106/73 100 Mechanical Ventilator 03/30/19 01:49 108 39 100 03/30/19 01:30 98 31 110/78 100 Mechanical Ventilator 03/30/19 01:00 26 Mechanical Ventilator 100 03/30/19 01:00 103 26 111/78 98 Mechanical Ventilator 03/30/19 00:30 99 30 99/67 100 Mechanical Ventilator 03/30/19 00:00 98.8 101 33 102/71 100 Mechanical Ventilator 03/30/19 00:00 Mechanical Ventilator 03/30/19 00:00 30 Mechanical Ventilator 100 03/30/19 00:00 100 03/29/19 23:40 100 29 100 Mechanical Ventilator 100 104 30 100 03/29/19 23:30 100 30 105/71 100 Mechanical Ventilator 03/29/19 23:26 100 03/29/19 23:00 103 31 108/78 100 Mechanical Ventilator 03/29/19 23:00 31 Mechanical Ventilator 100 03/29/19 22:30 101 29 110/73 100 Mechanical Ventilator 03/29/19 22:00 34 Mechanical Ventilator 100 03/29/19 22:00 108 34 116/78 100 Mechanical Ventilator 03/29/19 21:30 102 33 102/70 100 Mechanical Ventilator 03/29/19 21:20 105 39 100 03/29/19 21:00 110 38 102/63 100 Mechanical Ventilator 03/29/19 21:00 38 Mechanical Ventilator 100 03/29/19 20:30 108 40 103/69 99 Mechanical Ventilator 03/29/19 20:00 100 03/29/19 20:00 98.9 109 41 97/66 100 Mechanical Ventilator 03/29/19 20:00 41 Mechanical Ventilator 100 03/29/19 20:00 Mechanical Ventilator 03/29/19 19:30 108 37 79/53 100 Mechanical Ventilator 03/29/19 19:24 110 03/29/19 19:19 41 Mechanical Ventilator 100 03/29/19 19:01 110 37 100 03/29/19 19:00 112 39 93/62 97 100 03/29/19 19:00 39 Mechanical Ventilator 100 03/29/19 18:00 125 40 119/73 96 100 03/29/19 18:00 40 Mechanical Ventilator 100 03/29/19 17:45 128 38 112/76 93 100 03/29/19 17:30 125 38 118/70 97 100 03/29/19 17:15 130 37 100 03/29/19 17:15 132 39 124/88 93 100 03/29/19 17:05 43 Mechanical Ventilator 100 03/29/19 17:00 141 39 129/76 91 100 03/29/19 16:50 36 Mechanical Ventilator 100 03/29/19 16:50 140 36 92 100 03/29/19 16:30 141 39 158/96 89 100 03/29/19 16:12 133 03/29/19 16:00 Endotracheal Tube 03/29/19 16:00 31 Mechanical Ventilator 100 03/29/19 16:00 100 03/29/19 16:00 99.5 125 31 131/84 95 100 03/29/19 15:30 113 26 128/82 100 100 03/29/19 15:12 125 31 97 Mechanical Ventilator 100 124 31 100 03/29/19 15:00 30 Mechanical Ventilator 100 03/29/19 15:00 126 30 137/72 96 100 03/29/19 14:30 134 29 139/77 97 100 03/29/19 14:00 37 Mechanical Ventilator 100 03/29/19 14:00 153 37 93 100 03/29/19 13:30 128 35 90 Mechanical Ventilator 100 03/29/19 13:04 130 32 100 03/29/19 13:00 99.6 126 32 92 Mechanical Ventilator 100 03/29/19 13:00 32 Mechanical Ventilator 100 03/29/19 12:30 132 39 92 100 03/29/19 12:00 100 03/29/19 12:00 31 Mechanical Ventilator 100 03/29/19 12:00 Endotracheal Tube 03/29/19 12:00 137 31 140/80 93 Mechanical Ventilator 100 03/29/19 11:36 133 03/29/19 11:30 135 35 155/76 88 Mechanical Ventilator 100 03/29/19 11:00 116 35 130/84 91 Mechanical Ventilator 100 03/29/19 11:00 17 Mechanical Ventilator 100 03/29/19 10:37 117 34 100 03/29/19 10:30 117 32 136/89 93 Mechanical Ventilator 100 03/29/19 10:00 119 35 132/95 92 Mechanical Ventilator 100 03/29/19 10:00 18 Mechanical Ventilator 100 03/29/19 09:30 112 30 133/88 99 Mechanical Ventilator 100 03/29/19 09:00 115 31 143/83 96 Mechanical Ventilator 100 03/29/19 09:00 23 Mechanical Ventilator 100 Intake and Output 03/29/19 03/30/19 19:00 07:00 Intake Total 750.82 ml 889.0 ml Output Total 1255 ml 2550 ml Balance -504.18 ml -1661.0 ml Free Water 30 ml 100 ml IV Total 458.82 ml 599.0 ml Tube Feeding 20 ml 190 ml Blood Product 242 ml Output Urine Total 1255 ml 650 ml Hemodialysis UF 1900 ml # Bowel Movements 2 Laboratory Tests 03/29/19 09:15: Lactic Acid Level 2.30H, Urine Opiates Screen Negative, Urine Barbiturates Screen Negative, Phencyclidine (PCP) Screen Negative, Urine Amphetamines Screen Negative, Urine Benzodiazepines Screen PositiveH, Urine Cocaine Screen Negative , Urine Marijuana (THC) Screen Negative 03/29/19 12:17: Arterial Blood pH 7.356, Arterial Blood Partial Pressure CO2 30.9L, Arterial Blood Partial Pressure O2 67.9L, Arterial Blood HCO3 16.9*L, Arterial Blood Oxygen Saturation 91.9L, Arterial Blood Base Excess -7.6L, Amarjit Test Positive 03/29/19 15:30: Lactic Acid Level 1.80 03/29/19 20:40: Stool Occult Blood [Pending] 03/30/19 03:10: White Blood Count 10.4#, Red Blood Count 2.71L, Hemoglobin 8.5L, Hematocrit 24.4L, Mean Corpuscular Volume 90, Mean Corpuscular Hemoglobin 31.4H, Mean Corpuscular Hemoglobin Concent 34.9, Red Cell Distribution Width 14.2, Platelet Count 70L, Mean Platelet Volume 7.6, Neutrophils (%) (Auto) , Lymphocytes (%) ( Auto) , Monocytes (%) (Auto) , Eosinophils (%) (Auto) , Basophils (%) (Auto) , Differential Total Cells Counted 100, Neutrophils % (Manual) 94H, Lymphocytes % (Manual) 5L, Monocytes % (Manual) 1, Eosinophils % (Manual) 0, Basophils % ( Manual) 0, Band Neutrophils 0, Nucleated Red Blood Cells 1, Platelet Estimate DecreasedL, Platelet Morphology Normal, Polychromasia 1+, Hypochromasia 1+, Anisocytosis 1+, Sodium Level 139, Potassium Level 3.3L, Chloride Level 102, Carbon Dioxide Level 27, Anion Gap 10, Blood Urea Nitrogen 19H, Creatinine 3.6H , Estimat Glomerular Filtration Rate 16.8, Glucose Level 81, Uric Acid 5.6, Calcium Level 5.3#*L, Phosphorus Level 2.8, Magnesium Level 1.7L, Total Bilirubin 2.0H, Direct Bilirubin 1.4H, Gamma Glutamyl Transpeptidase 1006H, Aspartate Amino Transf (AST/SGOT) 2021H, Alanine Aminotransferase (ALT/SGPT) 1884H, Alkaline Phosphatase 532H, C-Reactive Protein, Quantitative 31.8H, Pro-B- Type Natriuretic Peptide 2020H, Total Protein 5.2L, Albumin 2.0L, Globulin 3.2, Albumin/Globulin Ratio 0.6L, Random Vancomycin Level 9.3, Hepatitis A IgM Antibody [Pending], Hepatitis B Surface Antigen [Pending], Hepatitis B Core IgM Antibody [Pending], Hepatitis C Antibody [Pending] Height (Feet): 5 Height (Inches): 2.00 Weight (Pounds): 198 General Appearance: no apparent distress EENT: other - vented Cardiovascular: tachycardia Abdomen: soft Amrit Lopez MD Mar 30, 2019 08:55
[2019-03-30] MEDS ORDERED: Calcium Gluconate 10% 2 GM in NS 110 ML IVPB ONE (09:00)
[2019-03-30] MEDS: Phytonadione 10 mg/mL 1ml amp SUBQ SCH (09:10)
[2019-03-30] MEDS: Pantoprazole Inj IVP SCH ×2 (09:10→20:32)
[2019-03-30] MEDS: Thiamine HCl 100 MG in NS 55 ML IVPB SCH (09:14)
[2019-03-30] MEDS ORDERED: guaiFENesin 100mg/5ml Liq ud GT PRN (09:45)
--- NOTE | 2019-03-30 09:50 | General Progress Note ---
Assessment/Plan Assessment/Plan: anemia respiratory failure DM elevated LFTS shock liver DKA h/p pancreatitis elevated rn maternity s/p emergency HD NGTF>>> will resume with low rate DM control repeat LFTS fu labs drug screen hepatitis panel>>> pending Subjective ROS Limited/Unobtainable: No Allergies: Coded Allergies: No Known Allergies (Unverified , 08/04/18) Objective Last 24 Hour Vital Signs Date Time Temp Pulse Resp B/P (MAP) Pulse Ox O2 Delivery O2 Flow Rate FiO2 03/30/19 09:30 114 37 93 Mechanical Ventilator 100 03/30/19 09:00 118 37 113/69 96 Mechanical Ventilator 100 03/30/19 08:45 120 45 75 03/30/19 08:30 120 39 134/82 99 Mechanical Ventilator 100 03/30/19 08:00 100 03/30/19 08:00 Mechanical Ventilator 03/30/19 08:00 119 35 127/85 99 Mechanical Ventilator 100 03/30/19 07:30 116 41 118/76 100 Mechanical Ventilator 100 03/30/19 07:09 120 46 100 Mechanical Ventilator 100 113 29 100 03/30/19 07:00 120 31 120/90 100 Mechanical Ventilator 100 03/30/19 07:00 32 Mechanical Ventilator 100 03/30/19 06:30 36 Mechanical Ventilator 100 03/30/19 06:30 118 34 03/30/19 06:30 116 34 132/93 97 Mechanical Ventilator 100 03/30/19 06:15 36 Mechanical Ventilator 100 03/30/19 06:00 35 Mechanical Ventilator 100 03/30/19 06:00 116 35 126/85 98 Mechanical Ventilator 100 03/30/19 05:39 112 34 100 03/30/19 05:30 35 Mechanical Ventilator 100 03/30/19 05:30 108 35 120/78 95 Mechanical Ventilator 100 03/30/19 05:00 33 Mechanical Ventilator 100 03/30/19 05:00 106 35 113/76 97 Mechanical Ventilator 100 03/30/19 04:30 107 34 108/72 97 Mechanical Ventilator 100 03/30/19 04:00 Mechanical Ventilator 03/30/19 04:00 100 03/30/19 04:00 33 Mechanical Ventilator 100 03/30/19 04:00 98.9 111 33 125/78 97 Mechanical Ventilator 03/30/19 03:34 33 Mechanical Ventilator 100 03/30/19 03:30 114 33 132/84 96 Mechanical Ventilator 03/30/19 03:23 110 39 100 Mechanical Ventilator 100 105 30 100 03/30/19 03:02 88 03/30/19 03:00 112 39 109/78 96 Mechanical Ventilator 03/30/19 03:00 29 Mechanical Ventilator 100 03/30/19 02:30 108 34 116/75 97 Mechanical Ventilator 03/30/19 02:00 32 Mechanical Ventilator 100 03/30/19 02:00 101 32 106/73 100 Mechanical Ventilator 03/30/19 01:49 108 39 100 03/30/19 01:30 98 31 110/78 100 Mechanical Ventilator 03/30/19 01:00 26 Mechanical Ventilator 100 03/30/19 01:00 103 26 111/78 98 Mechanical Ventilator 03/30/19 00:30 99 30 99/67 100 Mechanical Ventilator 03/30/19 00:00 98.8 101 33 102/71 100 Mechanical Ventilator 03/30/19 00:00 Mechanical Ventilator 03/30/19 00:00 30 Mechanical Ventilator 100 03/30/19 00:00 100 03/29/19 23:40 100 29 100 Mechanical Ventilator 100 104 30 100 03/29/19 23:30 100 30 105/71 100 Mechanical Ventilator 03/29/19 23:26 100 03/29/19 23:00 103 31 108/78 100 Mechanical Ventilator 03/29/19 23:00 31 Mechanical Ventilator 100 03/29/19 22:30 101 29 110/73 100 Mechanical Ventilator 03/29/19 22:00 34 Mechanical Ventilator 100 03/29/19 22:00 108 34 116/78 100 Mechanical Ventilator 03/29/19 21:30 102 33 102/70 100 Mechanical Ventilator 03/29/19 21:20 105 39 100 03/29/19 21:00 110 38 102/63 100 Mechanical Ventilator 03/29/19 21:00 38 Mechanical Ventilator 100 03/29/19 20:30 108 40 103/69 99 Mechanical Ventilator 03/29/19 20:00 100 03/29/19 20:00 98.9 109 41 97/66 100 Mechanical Ventilator 03/29/19 20:00 41 Mechanical Ventilator 100 03/29/19 20:00 Mechanical Ventilator 03/29/19 19:30 108 37 79/53 100 Mechanical Ventilator 03/29/19 19:24 110 03/29/19 19:19 41 Mechanical Ventilator 100 03/29/19 19:01 110 37 100 03/29/19 19:00 112 39 93/62 97 100 03/29/19 19:00 39 Mechanical Ventilator 100 03/29/19 18:00 125 40 119/73 96 100 03/29/19 18:00 40 Mechanical Ventilator 100 03/29/19 17:45 128 38 112/76 93 100 03/29/19 17:30 125 38 118/70 97 100 03/29/19 17:15 130 37 100 03/29/19 17:15 132 39 124/88 93 100 03/29/19 17:05 43 Mechanical Ventilator 100 03/29/19 17:00 141 39 129/76 91 100 03/29/19 16:50 36 Mechanical Ventilator 100 03/29/19 16:50 140 36 92 100 03/29/19 16:30 141 39 158/96 89 100 03/29/19 16:12 133 03/29/19 16:00 Endotracheal Tube 03/29/19 16:00 31 Mechanical Ventilator 100 03/29/19 16:00 100 03/29/19 16:00 99.5 125 31 131/84 95 100 03/29/19 15:30 113 26 128/82 100 100 03/29/19 15:12 125 31 97 Mechanical Ventilator 100 124 31 100 03/29/19 15:00 30 Mechanical Ventilator 100 03/29/19 15:00 126 30 137/72 96 100 03/29/19 14:30 134 29 139/77 97 100 03/29/19 14:00 37 Mechanical Ventilator 100 03/29/19 14:00 153 37 93 100 03/29/19 13:30 128 35 90 Mechanical Ventilator 100 03/29/19 13:04 130 32 100 03/29/19 13:00 99.6 126 32 92 Mechanical Ventilator 100 03/29/19 13:00 32 Mechanical Ventilator 100 03/29/19 12:30 132 39 92 100 03/29/19 12:00 100 03/29/19 12:00 31 Mechanical Ventilator 100 03/29/19 12:00 Endotracheal Tube 03/29/19 12:00 137 31 140/80 93 Mechanical Ventilator 100 03/29/19 11:36 133 03/29/19 11:30 135 35 155/76 88 Mechanical Ventilator 100 03/29/19 11:00 116 35 130/84 91 Mechanical Ventilator 100 03/29/19 11:00 17 Mechanical Ventilator 100 03/29/19 10:37 117 34 100 03/29/19 10:30 117 32 136/89 93 Mechanical Ventilator 100 03/29/19 10:00 119 35 132/95 92 Mechanical Ventilator 100 03/29/19 10:00 18 Mechanical Ventilator 100 Intake and Output 03/29/19 03/30/19 19:00 07:00 Intake Total 750.82 ml 889.0 ml Output Total 1255 ml 2550 ml Balance -504.18 ml -1661.0 ml Free Water 30 ml 100 ml IV Total 458.82 ml 599.0 ml Tube Feeding 20 ml 190 ml Blood Product 242 ml Output Urine Total 1255 ml 650 ml Hemodialysis UF 1900 ml # Bowel Movements 2 Laboratory Tests 03/29/19 12:17: Arterial Blood pH 7.356, Arterial Blood Partial Pressure CO2 30.9L, Arterial Blood Partial Pressure O2 67.9L, Arterial Blood HCO3 16.9*L, Arterial Blood Oxygen Saturation 91.9L, Arterial Blood Base Excess -7.6L, Amarjit Test Positive 03/29/19 15:30: Lactic Acid Level 1.80 03/29/19 20:40: Stool Occult Blood [Pending] 03/30/19 03:10: White Blood Count 10.4#, Red Blood Count 2.71L, Hemoglobin 8.5L, Hematocrit 24.4L, Mean Corpuscular Volume 90, Mean Corpuscular Hemoglobin 31.4H, Mean Corpuscular Hemoglobin Concent 34.9, Red Cell Distribution Width 14.2, Platelet Count 70L, Mean Platelet Volume 7.6, Neutrophils (%) (Auto) , Lymphocytes (%) ( Auto) , Monocytes (%) (Auto) , Eosinophils (%) (Auto) , Basophils (%) (Auto) , Differential Total Cells Counted 100, Neutrophils % (Manual) 94H, Lymphocytes % (Manual) 5L, Monocytes % (Manual) 1, Eosinophils % (Manual) 0, Basophils % ( Manual) 0, Band Neutrophils 0, Nucleated Red Blood Cells 1, Platelet Estimate DecreasedL, Platelet Morphology Normal, Polychromasia 1+, Hypochromasia 1+, Anisocytosis 1+, Sodium Level 139, Potassium Level 3.3L, Chloride Level 102, Carbon Dioxide Level 27, Anion Gap 10, Blood Urea Nitrogen 19H, Creatinine 3.6H , Estimat Glomerular Filtration Rate 16.8, Glucose Level 81, Uric Acid 5.6, Calcium Level 5.3#*L, Phosphorus Level 2.8, Magnesium Level 1.7L, Total Bilirubin 2.0H, Direct Bilirubin 1.4H, Gamma Glutamyl Transpeptidase 1006H, Aspartate Amino Transf (AST/SGOT) 2021H, Alanine Aminotransferase (ALT/SGPT) 1884H, Alkaline Phosphatase 532H, C-Reactive Protein, Quantitative 31.8H, Pro-B- Type Natriuretic Peptide 2020H, Total Protein 5.2L, Albumin 2.0L, Globulin 3.2, Albumin/Globulin Ratio 0.6L, Random Vancomycin Level 9.3, Hepatitis A IgM Antibody [Pending], Hepatitis B Surface Antigen [Pending], Hepatitis B Core IgM Antibody [Pending], Hepatitis C Antibody [Pending] Height (Feet): 5 Height (Inches): 2.00 Weight (Pounds): 198 General Appearance: lethargic EENT: normal ENT inspection Neck: supple Cardiovascular: normal rate Respiratory/Chest: decreased breath sounds Abdomen: normal bowel sounds, non tender, soft Extremities: non-tender Monty Jaimes MD Mar 30, 2019 09:50
[2019-03-30] MEDS: Levemir Flexpen SUBQ SCH ×2 (10:03→18:25)
[2019-03-30] MEDS: Vitamin D 1000 IU Tab GT SCH (10:04)
[2019-03-30] MEDS: Calcitriol 0.5mcg Cap ORAL SCH (10:04)
--- NOTE | 2019-03-30 11:35 | Internal Med Progress Note ---
Subjective Date of Service: Mar 30, 2019 Physician Name Marshal Gilbert Attending Physician Shree Mcintyre MD Current Medications Medications (Trade) Dose Ordered Sig/Greta Route PRN Reason Start Time Stop Time Status Last Admin Dose Admin Acetaminophen (Tylenol) 650 mg Q4H PRN GT T>100.5 03/30/19 09:45 04/29/19 09:44 Albuterol/ Ipratropium (Albuterol/ Ipratropium) 3 ml Q4H PRN HHN Shortness of Breath 03/26/19 20:00 03/31/19 19:59 03/27/19 11:19 Calcitriol (Rocaltrol) 0.5 mcg DAILY ORAL 03/30/19 10:00 04/29/19 09:59 03/30/19 10:04 Calcium Gluconate 1 gm/Sodium Chloride 120 ml @ 240 mls/hr Q6HR IVPB 03/30/19 12:00 04/29/19 11:59 Chlorhexidine Gluconate (Hetal-Hex 2%) 1 applic DAILY@2000 TOPIC 03/27/19 20:00 04/26/19 19:59 03/29/19 20:02 Dextrose (Dextrose 50%) 25 ml Q30M PRN IV Hypoglycemia 03/28/19 11:30 04/27/19 11:29 Dextrose (Dextrose 50%) 50 ml Q30M PRN IV Hypoglycemia 03/28/19 11:30 04/27/19 11:29 Epoetin John (Epoetin John(ESRD on dialysis)) 10,000 unit [id number] SUBQ 03/30/19 21:00 04/29/19 20:59 Guaifenesin (Robitussin) 200 mg Q4H PRN GT For Cough 03/30/19 09:45 04/26/19 11:14 Insulin Aspart (NovoLOG) EVERY 4 HOURS SUBQ 03/28/19 17:00 04/27/19 11:59 03/28/19 20:53 Insulin Detemir (Levemir) 6 units BID SUBQ 03/30/19 09:00 04/27/19 11:59 03/30/19 10:03 Iopamidol (Isovue-300 100ml) 100 ml NOW PRN INJ Radiology Procedure 03/26/19 17:00 Ipratropium [place] (Atrovent) 500 mcg Q4HRT HHN 03/27/19 19:00 04/01/19 18:59 03/30/19 10:37 Lorazepam (Ativan 2mg/ml 1ml) 1 mg Q2H PRN IV agitation 03/27/19 18:00 04/02/19 19:59 03/27/19 23:49 Midazolam HCl 100 ml @ 0 mls/hr Q24H PRN IV Agitation 03/28/19 00:15 04/04/19 00:14 03/30/19 09:49 Morphine Sulfate (Morphine Sulfate) 2 mg Q2H PRN IVP Severe Pain (Pain Scale 7-10) 03/28/19 20:15 04/04/19 20:14 03/28/19 23:05 Nitroglycerin (Ntg) 0.4 mg Q5MIN X 3 DOSES PRN SL Prn Chest Pain 03/26/19 20:15 04/25/19 20:14 Ondansetron HCl (Zofran) 4 mg Q6H PRN IVP Nausea & Vomiting 03/26/19 20:00 04/25/19 19:59 03/30/19 06:20 Pantoprazole (Protonix) 40 mg EVERY 12 HOURS IVP 03/30/19 09:00 04/29/19 08:59 03/30/19 09:10 Piperacillin Sod/ Tazobactam Sod 2.25 gm/Dextrose 55 ml @ 110 mls/hr Q8HR@0200,1000,1800 IV 03/30/19 18:00 04/06/19 17:59 Polyethylene Glycol (Miralax) 17 gm DAILYPRN PRN ORAL Constipation 03/26/19 20:00 04/25/19 19:59 Sodium Bicarbonate 150 ml/Dextrose 1,150 ml @ 30 mls/hr Q24H IV 03/29/19 13:30 04/28/19 13:29 Thiamine HCl 100 mg/Sodium Chloride 56 ml @ 112 mls/hr DAILY IVPB 03/29/19 09:00 04/28/19 08:59 03/30/19 09:14 Vancomycin HCl (Vanco rx to dose) 1 ea DAILY PRN MISC . 03/28/19 09:15 04/27/19 09:14 Vancomycin HCl 1 gm/Sodium Chloride 275 ml @ 183.333 mls/hr ONCE IVPB 03/30/19 08:00 03/30/19 12:00 03/30/19 08:26 Vitamin D (Vitamin D) 5,000 intlu DAILY GT 03/30/19 10:00 04/29/19 09:59 03/30/19 10:04 Allergies: Coded Allergies: No Known Allergies (Unverified , 08/04/18) ROS Limited/Unobtainable: Yes Subjective 43 YO F admitted with diabetic ketoacidosis. Now ARDS and respiratory failure. Intubated and sedated. Cover for Int Med-Dr Mcintyre. ICU Objective Last Vital Signs Date Time Temp Pulse Resp B/P (MAP) Pulse Ox O2 Delivery O2 Flow Rate FiO2 03/30/19 10:37 118 38 99 Mechanical Ventilator 75 117 40 100 03/30/19 09:00 113/69 03/30/19 04:00 98.9 03/27/19 15:00 4.0 Laboratory Tests Test 03/29/19 12:17 03/29/19 15:30 03/29/19 20:40 03/30/19 03:10 Arterial Blood pH 7.356 (7.350-7.450) Arterial Blood Partial Pressure CO2 30.9 mmHg (35.0-45.0) L Arterial Blood Partial Pressure O2 67.9 mmHg (75.0-100.0) L Arterial Blood HCO3 16.9 mmol/L (22.0-26.0) *L Arterial Blood Oxygen Saturation 91.9 % (95-100) L Arterial Blood Base Excess -7.6 (-2-2) L Amarjit Test Positive Lactic Acid Level 1.80 mmol/L (0.4-2.0) Stool Occult Blood Positive (NEGATIVE) White Blood Count 10.4 K/UL (4.8-10.8) # Red Blood Count 2.71 M/UL (4.20-5.40) L Hemoglobin 8.5 G/DL (12.0-16.0) L Hematocrit 24.4 % (37.0-47.0) L Mean Corpuscular Volume 90 FL (80-99) Mean Corpuscular Hemoglobin 31.4 PG (27.0-31.0) H Mean Corpuscular Hemoglobin Concent 34.9 G/DL (32.0-36.0) Red Cell Distribution Width 14.2 % (11.6-14.8) Platelet Count 70 K/UL (150-450) L Mean Platelet Volume 7.6 FL (6.5-10.1) Neutrophils (%) (Auto) % (45.0-75.0) Lymphocytes (%) (Auto) % (20.0-45.0) Monocytes (%) (Auto) % (1.0-10.0) Eosinophils (%) (Auto) % (0.0-3.0) Basophils (%) (Auto) % (0.0-2.0) Differential Total Cells Counted 100 Neutrophils % (Manual) 94 % (45-75) H Lymphocytes % (Manual) 5 % (20-45) L Monocytes % (Manual) 1 % (1-10) Eosinophils % (Manual) 0 % (0-3) Basophils % (Manual) 0 % (0-2) Band Neutrophils 0 % (0-8) Nucleated Red Blood Cells 1 /100 WBC Platelet Estimate Decreased L Platelet Morphology Normal Polychromasia 1+ Hypochromasia 1+ Anisocytosis 1+ Sodium Level 139 MMOL/L (136-145) Potassium Level 3.3 MMOL/L (3.5-5.1) L Chloride Level 102 MMOL/L (98-107) Carbon Dioxide Level 27 MMOL/L (21-32) Anion Gap 10 mmol/L (5-15) Blood Urea Nitrogen 19 mg/dL (7-18) H Creatinine 3.6 MG/DL (0.55-1.30) H Estimat Glomerular Filtration Rate 16.8 mL/min (>60) Glucose Level 81 MG/DL (74-106) Uric Acid 5.6 MG/DL (2.6-7.2) Calcium Level 5.3 MG/DL (8.5-10.1) #*L Phosphorus Level 2.8 MG/DL (2.5-4.9) Magnesium Level 1.7 MG/DL (1.8-2.4) L Total Bilirubin 2.0 MG/DL (0.2-1.0) H Direct Bilirubin 1.4 MG/DL (0.0-0.3) H Gamma Glutamyl Transpeptidase 1006 U/L (5-85) H Aspartate Amino Transf (AST/SGOT) 2021 U/L (15-37) H Alanine Aminotransferase (ALT/SGPT) 1884 U/L (12-78) H Alkaline Phosphatase 532 U/L (46-116) H C-Reactive Protein, Quantitative 31.8 mg/dL (0.00-0.90) H Pro-B-Type Natriuretic Peptide 2020 pg/mL (0-125) H Total Protein 5.2 G/DL (6.4-8.2) L Albumin 2.0 G/DL (3.4-5.0) L Globulin 3.2 g/dL Albumin/Globulin Ratio 0.6 (1.0-2.7) L Random Vancomycin Level 9.3 ug/mL Hepatitis A IgM Antibody Pending Hepatitis B Surface Antigen Pending Hepatitis B Core IgM Antibody Pending Hepatitis C Antibody Pending Microbiology Date/Time Source Procedure Growth Status 03/28/19 03:00 Sputum Gram Stain - Final Complete 03/28/19 03:00 Sputum Culture - Final [place] Usual Respiratory Marisa Complete Intake and Output 03/29/19 03/30/19 18:59 06:59 Intake Total 834.32 ml 838.5 ml Output Total 1265 ml 2545 ml Balance -430.68 ml -1706.5 ml Free Water 30 ml 100 ml IV Total 542.32 ml 573.5 ml Tube Feeding 20 ml 165 ml Blood Product 242 ml Output Urine Total 1265 ml 645 ml Hemodialysis UF 1900 ml # Bowel Movements 2 Assessment/Plan Assessment/Plan ASSESSMENT: This is a 43-year-old female with: 1. Abdominal pain. 2. Acute on chronic pancreatitis. 3. Diabetic ketoacidosis. 4. Hyperglycemia. 5. Renal failure. 6. Diabetes type 2. 7. Hypertension. 8. Ventral hernia. 9. ARDs/bilateral infiltrates/Respiratory failure 10. Elevated liver funct tests 11. Thrombocytopenia=improving TREATMENT: 1. Abdominal pain/acute pancreatitis. A Gastroenterology consultation has been obtained with Dr. Monty Jaimes. We will follow recommendations of Gastroenterology. The patient is currently NPO. 2. Diabetic ketoacidosis/hyperglycemia. An Endocrinology consultation is pending with Dr. Joseph Saleem. The patient has been placed on a regular insulin drip. We will follow recommendations of Endocrinology. 3. Renal failure. A Nephrology consultation has been obtained with Dr. Lopez. Hemodialysis 03/29/19 4. Hypertension. Continue amlodipine as above. 5. Ventral hernia. 6. Mechanical vent per pulmonary=Balfe 7. ABX=zosyn and Marshal Mcgowan MD Mar 30, 2019 11:35
[2019-03-30] MEDS: Calcium Gluconate 10% 1 GM in NS 110 ML IVPB SCH ×3 (13:06→23:33)
[2019-03-30] MEDS: Sodium Bicarbonate 150 ML in D5W 1000ml 1,000 ML IV SCH (13:30)
--- NOTE | 2019-03-30 15:43 | Surgery Progress Note ---
Surgery Progress Note Subjective Procedure Performed right femoral central venous catheter insertion Additional Comments ill appearing in ICU received HD still with uop labs noted on support sedated Objective Last 24 Hour Vital Signs Date Time Temp Pulse Resp B/P (MAP) Pulse Ox O2 Delivery O2 Flow Rate FiO2 03/30/19 15:02 34 85 03/30/19 15:00 85 03/30/19 15:00 123 38 137/90 92 Mechanical Ventilator 96 03/30/19 14:35 114 27 99 Mechanical Ventilator 75 117 37 75 03/30/19 14:00 35 Mechanical Ventilator 75 03/30/19 14:00 117 35 110/72 92 Mechanical Ventilator 100 03/30/19 13:00 118 37 111/73 91 Mechanical Ventilator 100 03/30/19 13:00 37 Mechanical Ventilator 75 03/30/19 12:30 99.6 119 38 128/71 91 Mechanical Ventilator 100 03/30/19 12:30 119 37 75 03/30/19 12:00 119 40 121/79 92 Mechanical Ventilator 100 03/30/19 12:00 38 Mechanical Ventilator 75 03/30/19 12:00 75 03/30/19 12:00 Mechanical Ventilator 03/30/19 11:37 117 03/30/19 11:30 118 37 106/70 93 Mechanical Ventilator 100 03/30/19 11:00 38 Mechanical Ventilator 75 03/30/19 11:00 120 38 120/80 95 Mechanical Ventilator 100 03/30/19 10:37 118 38 99 Mechanical Ventilator 75 117 40 75 03/30/19 10:30 120 27 127/97 87 Mechanical Ventilator 100 03/30/19 10:00 113 37 107/66 92 Mechanical Ventilator 100 03/30/19 10:00 37 Mechanical Ventilator 75 03/30/19 09:49 37 Mechanical Ventilator 75 03/30/19 09:30 114 37 93 Mechanical Ventilator 100 03/30/19 09:00 118 37 113/69 96 Mechanical Ventilator 100 03/30/19 09:00 37 Mechanical Ventilator 75 03/30/19 08:45 120 45 75 03/30/19 08:30 120 39 134/82 99 Mechanical Ventilator 100 03/30/19 08:00 100 03/30/19 08:00 Mechanical Ventilator 03/30/19 08:00 38 Non-Rebreather 75 03/30/19 08:00 119 35 127/85 99 Mechanical Ventilator 100 03/30/19 08:00 99.3 12/4/19 07:39 100 03/30/19 07:30 116 41 118/76 100 Mechanical Ventilator 100 03/30/19 07:09 120 46 100 Mechanical Ventilator 100 113 29 100 03/30/19 07:00 120 31 120/90 100 Mechanical Ventilator 100 03/30/19 07:00 32 Mechanical Ventilator 100 03/30/19 06:30 36 Mechanical Ventilator 100 03/30/19 06:30 118 34 03/30/19 06:30 116 34 132/93 97 Mechanical Ventilator 100 03/30/19 06:15 36 Mechanical Ventilator 100 03/30/19 06:00 35 Mechanical Ventilator 100 03/30/19 06:00 116 35 126/85 98 Mechanical Ventilator 100 03/30/19 05:39 112 34 100 03/30/19 05:30 35 Mechanical Ventilator 100 03/30/19 05:30 108 35 120/78 95 Mechanical Ventilator 100 03/30/19 05:00 33 Mechanical Ventilator 100 03/30/19 05:00 106 35 113/76 97 Mechanical Ventilator 100 03/30/19 04:30 107 34 108/72 97 Mechanical Ventilator 100 03/30/19 04:00 Mechanical Ventilator 03/30/19 04:00 100 03/30/19 04:00 33 Mechanical Ventilator 100 03/30/19 04:00 98.9 111 33 125/78 97 Mechanical Ventilator 03/30/19 03:34 33 Mechanical Ventilator 100 03/30/19 03:30 114 33 132/84 96 Mechanical Ventilator 03/30/19 03:23 110 39 100 Mechanical Ventilator 100 105 30 100 03/30/19 03:02 88 03/30/19 03:00 112 39 109/78 96 Mechanical Ventilator 03/30/19 03:00 29 Mechanical Ventilator 100 03/30/19 02:30 108 34 116/75 97 Mechanical Ventilator 03/30/19 02:00 32 Mechanical Ventilator 100 03/30/19 02:00 101 32 106/73 100 Mechanical Ventilator 03/30/19 01:49 108 39 100 03/30/19 01:30 98 31 110/78 100 Mechanical Ventilator 03/30/19 01:00 26 Mechanical Ventilator 100 03/30/19 01:00 103 26 111/78 98 Mechanical Ventilator 03/30/19 00:30 99 30 99/67 100 Mechanical Ventilator 03/30/19 00:00 98.8 101 33 102/71 100 Mechanical Ventilator 03/30/19 00:00 Mechanical Ventilator 03/30/19 00:00 30 Mechanical Ventilator 100 03/30/19 00:00 100 03/29/19 23:40 100 29 100 Mechanical Ventilator 100 104 30 100 03/29/19 23:30 100 30 105/71 100 Mechanical Ventilator 03/29/19 23:26 100 03/29/19 23:00 103 31 108/78 100 Mechanical Ventilator 03/29/19 23:00 31 Mechanical Ventilator 100 03/29/19 22:30 101 29 110/73 100 Mechanical Ventilator 03/29/19 22:00 34 Mechanical Ventilator 100 03/29/19 22:00 108 34 116/78 100 Mechanical Ventilator 03/29/19 21:30 102 33 102/70 100 Mechanical Ventilator 03/29/19 21:20 105 39 100 03/29/19 21:00 110 38 102/63 100 Mechanical Ventilator 03/29/19 21:00 38 Mechanical Ventilator 100 03/29/19 20:30 108 40 103/69 99 Mechanical Ventilator 03/29/19 20:00 100 03/29/19 20:00 98.9 109 41 97/66 100 Mechanical Ventilator 03/29/19 20:00 41 Mechanical Ventilator 100 03/29/19 20:00 Mechanical Ventilator 03/29/19 19:30 108 37 79/53 100 Mechanical Ventilator 03/29/19 19:24 110 03/29/19 19:19 41 Mechanical Ventilator 100 03/29/19 19:01 110 37 100 03/29/19 19:00 112 39 93/62 97 100 03/29/19 19:00 39 Mechanical Ventilator 100 03/29/19 18:00 125 40 119/73 96 100 03/29/19 18:00 40 Mechanical Ventilator 100 03/29/19 17:45 128 38 112/76 93 100 03/29/19 17:30 125 38 118/70 97 100 03/29/19 17:15 130 37 100 03/29/19 17:15 132 39 124/88 93 100 03/29/19 17:05 43 Mechanical Ventilator 100 03/29/19 17:00 141 39 129/76 91 100 03/29/19 16:50 36 Mechanical Ventilator 100 03/29/19 16:50 140 36 92 100 03/29/19 16:30 141 39 158/96 89 100 03/29/19 16:12 133 03/29/19 16:00 Endotracheal Tube 03/29/19 16:00 31 Mechanical Ventilator 100 03/29/19 16:00 100 03/29/19 16:00 99.5 125 31 131/84 95 100 I&O Intake and Output 03/29/19 03/30/19 18:59 06:59 Intake Total 834.32 ml 838.5 ml Output Total 1265 ml 2545 ml Balance -430.68 ml -1706.5 ml Free Water 30 ml 100 ml IV Total 542.32 ml 573.5 ml Tube Feeding 20 ml 165 ml Blood Product 242 ml Output Urine Total 1265 ml 645 ml Hemodialysis UF 1900 ml # Bowel Movements 2 Dressing: dry Wound: clean Cardiovascular: RSR Respiratory: decreased breath sounds Abdomen: soft, non-distended, decreased bowel sounds Extremities: edema, no cyanosis Laboratory Tests Test 03/29/19 20:40 03/30/19 03:10 03/30/19 12:25 Stool Occult Blood Positive (NEGATIVE) White Blood Count 10.4 K/UL (4.8-10.8) # Red Blood Count 2.71 M/UL (4.20-5.40) L Hemoglobin 8.5 G/DL (12.0-16.0) L Hematocrit 24.4 % (37.0-47.0) L Mean Corpuscular Volume 90 FL (80-99) Mean Corpuscular Hemoglobin 31.4 PG (27.0-31.0) H Mean Corpuscular Hemoglobin Concent 34.9 G/DL (32.0-36.0) Red Cell Distribution Width 14.2 % (11.6-14.8) Platelet Count 70 K/UL (150-450) L Mean Platelet Volume 7.6 FL (6.5-10.1) Neutrophils (%) (Auto) % (45.0-75.0) Lymphocytes (%) (Auto) % (20.0-45.0) Monocytes (%) (Auto) % (1.0-10.0) Eosinophils (%) (Auto) % (0.0-3.0) Basophils (%) (Auto) % (0.0-2.0) Differential Total Cells Counted 100 Neutrophils % (Manual) 94 % (45-75) H Lymphocytes % (Manual) 5 % (20-45) L Monocytes % (Manual) 1 % (1-10) Eosinophils % (Manual) 0 % (0-3) Basophils % (Manual) 0 % (0-2) Band Neutrophils 0 % (0-8) Nucleated Red Blood Cells 1 /100 WBC Platelet Estimate Decreased L Platelet Morphology Normal Polychromasia 1+ Hypochromasia 1+ Anisocytosis 1+ Sodium Level 139 MMOL/L (136-145) Potassium Level 3.3 MMOL/L (3.5-5.1) L Chloride Level 102 MMOL/L (98-107) Carbon Dioxide Level 27 MMOL/L (21-32) Anion Gap 10 mmol/L (5-15) Blood Urea Nitrogen 19 mg/dL (7-18) H Creatinine 3.6 MG/DL (0.55-1.30) H Estimat Glomerular Filtration Rate 16.8 mL/min (>60) Glucose Level 81 MG/DL (74-106) Uric Acid 5.6 MG/DL (2.6-7.2) Calcium Level 5.3 MG/DL (8.5-10.1) #*L Phosphorus Level 2.8 MG/DL (2.5-4.9) Magnesium Level 1.7 MG/DL (1.8-2.4) L Total Bilirubin 2.0 MG/DL (0.2-1.0) H Direct Bilirubin 1.4 MG/DL (0.0-0.3) H Gamma Glutamyl Transpeptidase 1006 U/L (5-85) H Aspartate Amino Transf (AST/SGOT) 2021 U/L (15-37) H Alanine Aminotransferase (ALT/SGPT) 1884 U/L (12-78) H Alkaline Phosphatase 532 U/L (46-116) H C-Reactive Protein, Quantitative 31.8 mg/dL (0.00-0.90) H Pro-B-Type Natriuretic Peptide 2020 pg/mL (0-125) H Total Protein 5.2 G/DL (6.4-8.2) L Albumin 2.0 G/DL (3.4-5.0) L Globulin 3.2 g/dL Albumin/Globulin Ratio 0.6 (1.0-2.7) L Random Vancomycin Level 9.3 ug/mL Hepatitis A IgM Antibody Pending Hepatitis B Surface Antigen Pending Hepatitis B Core IgM Antibody Pending Hepatitis C Antibody Pending Arterial Blood pH 7.397 (7.350-7.450) Arterial Blood Partial Pressure CO2 33.7 mmHg (35.0-45.0) L Arterial Blood Partial Pressure O2 47.4 mmHg (75.0-100.0) Arterial Blood HCO3 20.3 mmol/L (22.0-26.0) L Arterial Blood Oxygen Saturation 81.9 % (95-100) *L Arterial Blood Base Excess -4.0 (-2-2) L Amarjit Test Positive Plan Problems: (1) Abdominal pain Assessment & Plan: 43F presented with abd pain per report 01/04 generalized unable to obtain exam now that she is intubated in distress labs noted ventral incisional hernia reducible abd soft -npo -iv fluids -ng tube to low intermittent suction -will order imaging when stabilized -HD as per renal -appreciate ICU care will follow with recs thank you (2) Ventral hernia (3) Acute on chronic pancreatitis Assessment & Plan: Evidence of acute on chronic pancreatitis. No pseudocyst. Hepatomegaly with severe steatosis. Mild hiatal hernia. abnormal lft's dehydrated dka renal insufficiency -npo iv fluids tailored to uop appreciate endocrine input appreciate top lift cutter input needs urgent/emergency central venous catheter. see note HD as per renal vent support trend labs will follow with recs Lefty Meraz Mar 30, 2019 15:43
--- NOTE | 2019-03-30 15:54 | Pulmonolgy Critical Care Note ---
Critical Care - Asmt/Plan Assessment/Plan: Pulmonary Critical Care Progress Note HPI Patient is a 43-year-old woman with past history of Diabetes, Hypertension, Chronic Obstructive Pulmonary Disease, admitted with Acute on Chronic Pancreatitis, elevated Liver Functions, Thrombocytopenia. Had c/o abdominal pain , nausea and vomiting, shortness of breath, coughing. She has a history of pancreatitis, noted to have features of Pancreatitis as well as azotemia, elevated liver function tests. She has history of multiple hernia operations, last in May 2018. No fevers or chills. Denies chest pain. No other aggravating relieving factors. Denies any other associated symptoms. Patient noted to be in Diabetic Ketoacidosis on admission - remains on Insulin gtt, Metabolic acidosis, ARDS/fluid overload, requiring intubation and mechanical ventilation, Worsening Acute Renal Failure, s/p Hemodialysis Allergies: No Known Allergies Past Medical History: Diabetes, Hypertension, Chronic Obstructive Pulmonary Disease, Pancreatitis Physical Exam Vital Signs Noted General Appearance: sedated on the ventilator Head: normocephalic, atraumatic Eyes: bilateral eye normal inspection, bilateral PERRL ENT: moist mm, ETT Neck: no LN, no masses Respiratory: bilateral rhonchi, BS equal bilaterally Cardiovascular: HS1, HS2 normal, moderate edema, tachycardia Gastrointestinal: normal bowel sounds, soft, non-distended, tenderness - epigastric, hernia - ventral Musculoskeletal: well perfused, moving all limbs Neurologic: no seizures, no focal signs Impression: Pneumonia vs ARDS Respiratory Failure with high FIO2 and PEEP requirements, remains in positive fluid balance despite diuresis Acute on Chronic Pancreatitis Hypocalcemia sp replacement Hypomagnesemia s/p replacement Reduced Albumin level Worsening Acute Renal Failurefor HD Elevated Liver Function Tests Significant previous Alcohol abuse per her partner Thrombocytopenia GI bleed - on Protonix gtt Diabetic ketoacidoses Severe metabolic acidosis H/o Hypertension H/o Chronic Obstructive Pulmonary Disease, H/o Multiple Previous Hernia Surgeries Plan ACVC, Vt 450, Increase RR 24, adjust PEEP 12, adjust FIO2 ETT in good position Dialysis per renal, still making urine Monitor labs, Repeat ABG PRN HHN Broad spectrum antibiotics PRN Sedation PPX: SCD/Protonix Insulin gtt Labs noted Echo: Preserved LV function EKG: Rate: tachycardiac Rhythm: NSR ST Segments: no acute changes ASA given to the pt in ED: No Chest X-Ray 03/26/2019: no consolidation, no effusion, no pneumothorax, no acute cardiopulmonary disease CXR: 03/27/2019: worsening bilateral infiltrates, low lung volumes, ETT low CT A/P: Lung bases: No mass. No consolidation. ABDOMEN: Liver: Unremarkable. Gallbladder and bile ducts: Unremarkable. Pancreas: Stranding around the pancreas. Multiple calcifications within the pancreas.. Spleen: Unremarkable. Adrenals: Unremarkable. Kidneys and ureters: No hydronephrosis. Stomach and bowel: No bowel obstruction. No bowel wall thickening. Fatty infiltration of the colonic wall. Mild hiatal hernia. PELVIS: Appendix: No evidence of appendicitis. Bladder: Unremarkable. Reproductive: Unremarkable. ABDOMEN and PELVIS: Intraperitoneal space: Unremarkable. Bones/joints: No acute fractures. Soft tissues: Fat containing periumbilical hernia. Vasculature: No abdominal aortic aneurysm. Lymph nodes: No enlarged lymph nodes. Critical Care - Objective Last 24 Hour Vital Signs Date Time Temp Pulse Resp B/P (MAP) Pulse Ox O2 Delivery O2 Flow Rate FiO2 03/30/19 15:02 34 85 03/30/19 15:00 85 03/30/19 15:00 123 38 137/90 92 Mechanical Ventilator 96 03/30/19 14:35 114 27 99 Mechanical Ventilator 75 117 37 75 03/30/19 14:00 35 Mechanical Ventilator 75 03/30/19 14:00 117 35 110/72 92 Mechanical Ventilator 100 03/30/19 13:00 118 37 111/73 91 Mechanical Ventilator 100 03/30/19 13:00 37 Mechanical Ventilator 75 03/30/19 12:30 99.6 119 38 128/71 91 Mechanical Ventilator 100 03/30/19 12:30 119 37 75 03/30/19 12:00 119 40 121/79 92 Mechanical Ventilator 100 03/30/19 12:00 38 Mechanical Ventilator 75 03/30/19 12:00 75 03/30/19 12:00 Mechanical Ventilator 03/30/19 11:37 117 03/30/19 11:30 118 37 106/70 93 Mechanical Ventilator 100 03/30/19 11:00 38 Mechanical Ventilator 75 03/30/19 11:00 120 38 120/80 95 Mechanical Ventilator 100 03/30/19 10:37 118 38 99 Mechanical Ventilator 75 117 40 75 03/30/19 10:30 120 27 127/97 87 Mechanical Ventilator 100 03/30/19 10:00 113 37 107/66 92 Mechanical Ventilator 100 03/30/19 10:00 37 Mechanical Ventilator 75 03/30/19 09:49 37 Mechanical Ventilator 75 03/30/19 09:30 114 37 93 Mechanical Ventilator 100 03/30/19 09:00 118 37 113/69 96 Mechanical Ventilator 100 03/30/19 09:00 37 Mechanical Ventilator 75 03/30/19 08:45 120 45 75 03/30/19 08:30 120 39 134/82 99 Mechanical Ventilator 100 03/30/19 08:00 100 03/30/19 08:00 Mechanical Ventilator 03/30/19 08:00 38 Non-Rebreather 75 03/30/19 08:00 119 35 127/85 99 Mechanical Ventilator 100 03/30/19 08:00 99.3 03/30/19 07:39 100 03/30/19 07:30 116 41 118/76 100 Mechanical Ventilator 100 03/30/19 07:09 120 46 100 Mechanical Ventilator 100 113 29 100 03/30/19 07:00 120 31 120/90 100 Mechanical Ventilator 100 03/30/19 07:00 32 Mechanical Ventilator 100 03/30/19 06:30 36 Mechanical Ventilator 100 03/30/19 06:30 118 34 03/30/19 06:30 116 34 132/93 97 Mechanical Ventilator 100 03/30/19 06:15 36 Mechanical Ventilator 100 03/30/19 06:00 35 Mechanical Ventilator 100 03/30/19 06:00 116 35 126/85 98 Mechanical Ventilator 100 03/30/19 05:39 112 34 100 03/30/19 05:30 35 Mechanical Ventilator 100 03/30/19 05:30 108 35 120/78 95 Mechanical Ventilator 100 03/30/19 05:00 33 Mechanical Ventilator 100 03/30/19 05:00 106 35 113/76 97 Mechanical Ventilator 100 03/30/19 04:30 107 34 108/72 97 Mechanical Ventilator 100 03/30/19 04:00 Mechanical Ventilator 03/30/19 04:00 100 03/30/19 04:00 33 Mechanical Ventilator 100 03/30/19 04:00 98.9 111 33 125/78 97 Mechanical Ventilator 03/30/19 03:34 33 Mechanical Ventilator 100 03/30/19 03:30 114 33 132/84 96 Mechanical Ventilator 03/30/19 03:23 110 39 100 Mechanical Ventilator 100 105 30 100 03/30/19 03:02 88 03/30/19 03:00 112 39 109/78 96 Mechanical Ventilator 03/30/19 03:00 29 Mechanical Ventilator 100 03/30/19 02:30 108 34 116/75 97 Mechanical Ventilator 03/30/19 02:00 32 Mechanical Ventilator 100 03/30/19 02:00 101 32 106/73 100 Mechanical Ventilator 03/30/19 01:49 108 39 100 03/30/19 01:30 98 31 110/78 100 Mechanical Ventilator 03/30/19 01:00 26 Mechanical Ventilator 100 03/30/19 01:00 103 26 111/78 98 Mechanical Ventilator 03/30/19 00:30 99 30 99/67 100 Mechanical Ventilator 03/30/19 00:00 98.8 101 33 102/71 100 Mechanical Ventilator 03/30/19 00:00 Mechanical Ventilator 03/30/19 00:00 30 Mechanical Ventilator 100 03/30/19 00:00 100 03/29/19 23:40 100 29 100 Mechanical Ventilator 100 104 30 100 03/29/19 23:30 100 30 105/71 100 Mechanical Ventilator 03/29/19 23:26 100 03/29/19 23:00 103 31 108/78 100 Mechanical Ventilator 03/29/19 23:00 31 Mechanical Ventilator 100 03/29/19 22:30 101 29 110/73 100 Mechanical Ventilator 03/29/19 22:00 34 Mechanical Ventilator 100 03/29/19 22:00 108 34 116/78 100 Mechanical Ventilator 03/29/19 21:30 102 33 102/70 100 Mechanical Ventilator 03/29/19 21:20 105 39 100 03/29/19 21:00 110 38 102/63 100 Mechanical Ventilator 03/29/19 21:00 38 Mechanical Ventilator 100 03/29/19 20:30 108 40 103/69 99 Mechanical Ventilator 03/29/19 20:00 100 03/29/19 20:00 98.9 109 41 97/66 100 Mechanical Ventilator 03/29/19 20:00 41 Mechanical Ventilator 100 03/29/19 20:00 Mechanical Ventilator 03/29/19 19:30 108 37 79/53 100 Mechanical Ventilator 03/29/19 19:24 110 03/29/19 19:19 41 Mechanical Ventilator 100 03/29/19 19:01 110 37 100 03/29/19 19:00 112 39 93/62 97 100 03/29/19 19:00 39 Mechanical Ventilator 100 03/29/19 18:00 125 40 119/73 96 100 03/29/19 18:00 40 Mechanical Ventilator 100 03/29/19 17:45 128 38 112/76 93 100 03/29/19 17:30 125 38 118/70 97 100 03/29/19 17:15 130 37 100 03/29/19 17:15 132 39 124/88 93 100 03/29/19 17:05 43 Mechanical Ventilator 100 03/29/19 17:00 141 39 129/76 91 100 03/29/19 16:50 36 Mechanical Ventilator 100 03/29/19 16:50 140 36 92 100 03/29/19 16:30 141 39 158/96 89 100 03/29/19 16:12 133 03/29/19 16:00 Endotracheal Tube 03/29/19 16:00 31 Mechanical Ventilator 100 03/29/19 16:00 100 03/29/19 16:00 99.5 125 31 131/84 95 100 Micro: Microbiology Date/Time Source Procedure Growth Status 03/28/19 03:00 Sputum Gram Stain - Final Complete 03/28/19 03:00 Sputum Culture - Final [place] Usual Respiratory Marisa Complete Accucheck: 98 Critical Care - Subjective ROS Limited/Unobtainable: No FI02: 85 Vent Support Breath Rate: 26 Vent Support Mode: AC Vent Tidal Volume: 450 Sputum Amount: Small PEEP: 12.0 PIP: 21 Tube Feeding Amount: 20 I&O: Intake and Output 03/29/19 03/30/19 18:59 06:59 Intake Total 834.32 ml 838.5 ml Output Total 1265 ml 2545 ml Balance -430.68 ml -1706.5 ml Free Water 30 ml 100 ml IV Total 542.32 ml 573.5 ml Tube Feeding 20 ml 165 ml Blood Product 242 ml Output Urine Total 1265 ml 645 ml Hemodialysis UF 1900 ml # Bowel Movements 2 ET-Tube: 7.5 ET Position: 23 Julio Rodrigez MD Mar 30, 2019 15:54
[2019-03-30] MEDS: Zosyn 2.25 gm in D5W 55ml IV SCH (18:11)
[2019-03-30] MEDS: Dyna-Hex 2% Top Sol 2oz TOPIC SCH (19:58)
[2019-03-30] MEDS: Epoetin Alfa-EPBX(ESRD on dialysis)10,000 unit/ml vial SUBQ SCH (20:32)
[2019-03-30] MEDS: LORazepam Inj 2mg/ml 1ml IV PRN (22:48)
[2019-03-31] VITALS (29 sets, daily range): BP systolic 75–159; BP diastolic 58–100
[2019-03-31] MEDS: NovoLOG Insulin Flexpen SUBQ SCH ×6 (00:32→20:44)
[2019-03-31] MEDS: Ipratropium 0.02% Inh Soln 2.5ml UD HHN SCH ×7 (01:10→23:52)
[2019-03-31] MEDS: Zosyn 2.25 gm in D5W 55ml IV SCH (01:31)
[2019-03-31] MEDS: Versed 50mg/D5W 100ml 100 ML IV PRN ×4 (01:31→19:39)
[2019-03-31 04:35] LABS: HEMATOCRIT 25.8 % (37.0-47.0); HEMOGLOBIN 8.9 G/DL (12.0-16.0); MEAN CORPUSCULAR VOLUME 90 FL (80-99); PLATELET COUNT 102 K/UL (150-450); RED BLOOD COUNT 2.85 M/UL (4.20-5.40); RED CELL DISTRIBUTION WIDTH 14.7 % (11.6-14.8); WHITE BLOOD COUNT 13.8 K/UL (4.8-10.8)
[2019-03-31 04:53] LABS: ALANINE AMINOTRANSFERASE 1264 U/L (12-78); ALBUMIN 1.9 G/DL (3.4-5.0); ALBUMIN/GLOBULIN RATIO 0.5 (1.0-2.7); ALKALINE PHOSPHATASE 669 U/L (46-116); ANION GAP 10 mmol/L (5-15); ASPARTATE AMINO TRANSFERASE 490 U/L (15-37); BILIRUBIN,TOTAL 1.7 MG/DL (0.2-1.0); BLOOD UREA NITROGEN 29 mg/dL (7-18); CALCIUM 7.9 MG/DL (8.5-10.1); CARBON DIOXIDE 28 MMOL/L (21-32); CHLORIDE 103 MMOL/L (98-107); CREATININE 4.3 MG/DL (0.55-1.30); POTASSIUM 3.3 MMOL/L (3.5-5.1); SODIUM 140 MMOL/L (136-145)
[2019-03-31 04:58] LABS: PHOSPHORUS 3.6 MG/DL (2.5-4.9)
[2019-03-31 05:02] LABS: BILIRUBIN,DIRECT 1.1 MG/DL (0.0-0.3)
[2019-03-31] MEDS: Calcium Gluconate 10% 1 GM in NS 110 ML IVPB SCH ×2 (05:58→21:59)
--- NOTE | 2019-03-31 07:18 | General Progress Note ---
Assessment/Plan Problem List: (1) DKA (diabetic ketoacidoses) ICD Codes: E11.10 - Type 2 diabetes mellitus with ketoacidosis without coma SNOMED: 072945384, 82933857 Qualifiers: Qualified Codes: E13.10 - Other specified diabetes mellitus with ketoacidosis without coma (2) Diabetes mellitus out of control ICD Codes: E11.65 - Type 2 diabetes mellitus with hyperglycemia SNOMED: 89717185, 942130846 (3) Acute on chronic pancreatitis ICD Codes: K85.90 - Acute pancreatitis without necrosis or infection, unspecified; K86.1 - Other chronic pancreatitis SNOMED: 417745709, 201403871 (4) Respiratory failure ICD Codes: J96.90 - Respiratory failure, unspecified, unspecified whether with hypoxia or hypercapnia SNOMED: 016259391 Assessment/Plan: DKA resolved continue Levemir 6 units bid continue NISS every 4 hours Subjective ROS Limited/Unobtainable: Yes Allergies: Coded Allergies: No Known Allergies (Unverified , 08/04/18) Subjective events noted glucose values are controlled Item Value Date Time Bedside Blood Glucose 105 mg/dl 03/31/19 0443 Bedside Blood Glucose 93 mg/dl 03/31/19 0032 Bedside Blood Glucose 110 mg/dl 03/30/19 2032 Bedside Blood Glucose 158 mg/dl H 03/30/19 1825 Bedside Blood Glucose 98 mg/dl 03/30/19 1300 Bedside Blood Glucose 99 mg/dl 03/30/19 1003 Bedside Blood Glucose 104 mg/dl 03/30/19 0438 Objective Last 24 Hour Vital Signs Date Time Temp Pulse Resp B/P (MAP) Pulse Ox O2 Delivery O2 Flow Rate FiO2 03/31/19 07:00 26 Mechanical Ventilator 90 03/31/19 06:30 125 34 03/31/19 06:00 33 Mechanical Ventilator 90 03/31/19 06:00 120 32 123/78 98 Mechanical Ventilator 90 03/31/19 05:59 33 Mechanical Ventilator 90 03/31/19 05:30 34 Mechanical Ventilator 90 03/31/19 05:10 120 35 90 03/31/19 05:00 33 Mechanical Ventilator 90 03/31/19 05:00 120 32 109/65 96 Mechanical Ventilator 90 03/31/19 04:00 99.3 125 38 129/78 94 Mechanical Ventilator 90 03/31/19 04:00 90 03/31/19 04:00 Mechanical Ventilator 03/31/19 04:00 38 Mechanical Ventilator 90 03/31/19 04:00 125 03/31/19 03:30 126 32 90 03/31/19 03:00 122 24 75/58 97 Mechanical Ventilator 90 03/31/19 03:00 24 Mechanical Ventilator 90 03/31/19 02:00 36 Mechanical Ventilator 90 03/31/19 02:00 121 36 121/76 95 Mechanical Ventilator 90 03/31/19 01:31 36 Mechanical Ventilator 90 03/31/19 01:14 120 35 90 03/31/19 01:00 115 34 132/93 96 Mechanical Ventilator 95 03/31/19 01:00 34 Mechanical Ventilator 95 03/31/19 00:00 95 03/31/19 00:00 98.8 117 34 127/85 96 Mechanical Ventilator 95 03/31/19 00:00 117 03/31/19 00:00 34 Mechanical Ventilator 95 03/31/19 00:00 Mechanical Ventilator 03/30/19 23:30 118 37 98 Mechanical Ventilator 90 120 42 90 03/30/19 23:00 29 Mechanical Ventilator 95 03/30/19 23:00 119 29 123/95 96 Mechanical Ventilator 95 03/30/19 22:30 33 Mechanical Ventilator 95 03/30/19 22:15 33 Mechanical Ventilator 95 03/30/19 22:00 115 29 115/89 99 Mechanical Ventilator 95 03/30/19 22:00 29 Mechanical Ventilator 95 03/30/19 21:30 109 34 85 03/30/19 21:00 33 Mechanical Ventilator 85 03/30/19 21:00 112 33 103/64 89 Mechanical Ventilator 85 03/30/19 20:33 33 Mechanical Ventilator 85 03/30/19 20:00 98.6 116 35 104/67 91 Mechanical Ventilator 85 03/30/19 20:00 Mechanical Ventilator 03/30/19 20:00 85 03/30/19 20:00 35 Mechanical Ventilator 85 03/30/19 19:30 116 03/30/19 19:30 122 37 85 03/30/19 19:00 34 Mechanical Ventilator 85 03/30/19 19:00 115 34 106/63 90 Mechanical Ventilator 85 03/30/19 18:00 34 Mechanical Ventilator 85 03/30/19 18:00 116 33 100/85 92 Mechanical Ventilator 85 03/30/19 17:30 118 33 104/72 94 Mechanical Ventilator 85 03/30/19 17:00 Mechanical Ventilator 03/30/19 17:00 34 Mechanical Ventilator 85 03/30/19 17:00 121 36 117/76 97 Mechanical Ventilator 85 03/30/19 16:43 123 39 85 03/30/19 16:30 125 32 89/54 96 Mechanical Ventilator 85 03/30/19 16:00 Mechanical Ventilator 03/30/19 16:00 34 Mechanical Ventilator 85 03/30/19 16:00 99.3 123 36 127/81 96 Mechanical Ventilator 85 03/30/19 15:30 126 28 121/98 94 Mechanical Ventilator 85 03/30/19 15:21 121 03/30/19 15:02 34 85 03/30/19 15:00 85 03/30/19 15:00 123 38 137/90 92 Mechanical Ventilator 85 03/30/19 14:35 114 27 99 Mechanical Ventilator 75 117 37 75 03/30/19 14:30 115 37 98/56 94 Mechanical Ventilator 85 03/30/19 14:00 35 Mechanical Ventilator 75 03/30/19 14:00 117 35 110/72 92 Mechanical Ventilator 75 03/30/19 13:30 116 37 122/74 92 Mechanical Ventilator 75 03/30/19 13:00 118 37 111/73 91 Mechanical Ventilator 75 03/30/19 13:00 37 Mechanical Ventilator 75 03/30/19 12:30 99.6 119 38 128/71 91 Mechanical Ventilator 75 03/30/19 12:30 119 37 75 03/30/19 12:00 119 40 121/79 92 Mechanical Ventilator 100 03/30/19 12:00 38 Mechanical Ventilator 75 03/30/19 12:00 75 03/30/19 12:00 Mechanical Ventilator 03/30/19 11:37 117 03/30/19 11:30 118 37 106/70 93 Mechanical Ventilator 100 03/30/19 11:00 38 Mechanical Ventilator 75 03/30/19 11:00 120 38 120/80 95 Mechanical Ventilator 100 03/30/19 10:37 118 38 99 Mechanical Ventilator 75 117 40 75 03/30/19 10:30 120 27 127/97 87 Mechanical Ventilator 100 03/30/19 10:00 113 37 107/66 92 Mechanical Ventilator 100 03/30/19 10:00 37 Mechanical Ventilator 75 03/30/19 09:49 37 Mechanical Ventilator 75 03/30/19 09:30 114 37 93 Mechanical Ventilator 100 03/30/19 09:00 118 37 113/69 96 Mechanical Ventilator 100 03/30/19 09:00 37 Mechanical Ventilator 75 03/30/19 08:45 120 45 75 03/30/19 08:30 120 39 134/82 99 Mechanical Ventilator 100 03/30/19 08:00 100 03/30/19 08:00 Mechanical Ventilator 03/30/19 08:00 38 Non-Rebreather 75 03/30/19 08:00 119 35 127/85 99 Mechanical Ventilator 100 03/30/19 08:00 99.3 03/30/19 07:39 100 03/30/19 07:30 116 41 118/76 100 Mechanical Ventilator 100 Intake and Output 03/30/19 03/31/19 19:00 07:00 Intake Total 1183.933 ml 794.5 ml Output Total 910 ml 780 ml Balance 273.933 ml 14.5 ml Free Water 100 ml 50 ml IV Total 828.933 ml 564.5 ml Tube Feeding 255 ml 180 ml Output Urine Total 910 ml 780 ml # Bowel Movements 2 Laboratory Tests 03/30/19 12:25: Arterial Blood pH 7.397, Arterial Blood Partial Pressure CO2 33.7L, Arterial Blood Partial Pressure O2 47.4*L, Arterial Blood HCO3 20.3L, Arterial Blood Oxygen Saturation 81.9*L, Arterial Blood Base Excess -4.0L, Amarjit Test Positive 03/30/19 17:58: Stool Occult Blood [Pending] 03/31/19 03:30: White Blood Count 13.8H, Red Blood Count 2.85L, Hemoglobin 8.9L, Hematocrit 25.8L, Mean Corpuscular Volume 90, Mean Corpuscular Hemoglobin 31.3H, Mean Corpuscular Hemoglobin Concent 34.6, Red Cell Distribution Width 14.7, Platelet Count 102L, Mean Platelet Volume 6.8, Neutrophils (%) (Auto) , Lymphocytes (%) ( Auto) , Monocytes (%) (Auto) , Eosinophils (%) (Auto) , Basophils (%) (Auto) , Neutrophils % (Manual) [Pending], Lymphocytes % (Manual) [Pending], Platelet Estimate [Pending], Platelet Morphology [Pending], Sodium Level 140, Potassium Level 3.3L, Chloride Level 103, Carbon Dioxide Level 28, Anion Gap 10, Blood Urea Nitrogen 29H, Creatinine 4.3H, Estimat Glomerular Filtration Rate 13.8, Glucose Level 107H, Uric Acid 5.7, Calcium Level 7.9#L, Phosphorus Level 3.6, Magnesium Level 2.3, Total Bilirubin 1.7H, Direct Bilirubin 1.1H, Aspartate Amino Transf (AST/SGOT) 490H, Alanine Aminotransferase (ALT/SGPT) 1264H, Alkaline Phosphatase 669H, Troponin I 0.000, C-Reactive Protein, Quantitative 1.1H, Pro-B-Type Natriuretic Peptide 1833H, Total Protein 5.7L, Albumin 1.9L, Globulin 3.8, Albumin/Globulin Ratio 0.5L, Random Vancomycin Level 17.1 Height (Feet): 5 Height (Inches): 2.00 Weight (Pounds): 194 General Appearance: lethargic Cardiovascular: normal rate Respiratory/Chest: decreased breath sounds Abdomen: normal bowel sounds Objective Current Medications Medications (Trade) Dose Ordered Sig/Greta Route PRN Reason Start Time Stop Time Status Last Admin Dose Admin Acetaminophen (Tylenol) 650 mg Q4H PRN GT T>100.5 03/30/19 09:45 04/29/19 09:44 Albuterol/ Ipratropium (Albuterol/ Ipratropium) 3 ml Q4H PRN HHN Shortness of Breath 03/26/19 20:00 03/31/19 19:59 03/27/19 11:19 Calcitriol (Rocaltrol) 0.5 mcg DAILY ORAL 03/30/19 10:00 04/29/19 09:59 03/30/19 10:04 Calcium Gluconate 1 gm/Sodium Chloride 120 ml @ 240 mls/hr Q6HR IVPB 03/30/19 12:00 04/29/19 11:59 03/31/19 05:58 Chlorhexidine Gluconate (Hetal-Hex 2%) 1 applic DAILY@2000 TOPIC 03/27/19 20:00 04/26/19 19:59 03/30/19 19:58 Dextrose (Dextrose 50%) 25 ml Q30M PRN IV Hypoglycemia 03/28/19 11:30 04/27/19 11:29 Dextrose (Dextrose 50%) 50 ml Q30M PRN IV Hypoglycemia 03/28/19 11:30 1/1/20 11:29 Epoetin John (Epoetin John(ESRD on dialysis)) 10,000 unit THU-THU-THU SUBQ 03/30/19 21:00 04/29/19 20:59 03/30/19 20:32 Guaifenesin (Robitussin) 200 mg Q4H PRN GT For Cough 03/30/19 09:45 04/26/19 11:14 Insulin Aspart (NovoLOG) EVERY 4 HOURS SUBQ 03/28/19 17:00 04/27/19 11:59 03/30/19 18:25 Insulin Detemir (Levemir) 6 units BID SUBQ 03/30/19 09:00 04/27/19 11:59 03/30/19 18:25 Iopamidol (Isovue-300 100ml) 100 ml NOW PRN INJ Radiology Procedure 03/26/19 17:00 Ipratropium Charlotte (Atrovent) 500 mcg Q4HRT HHN 03/27/19 19:00 04/01/19 18:59 03/31/19 06:55 Lorazepam (Ativan 2mg/ml 1ml) 1 mg Q2H PRN IV agitation 03/27/19 18:00 04/02/19 19:59 03/30/19 22:48 Midazolam HCl 100 ml @ 0 mls/hr Q24H PRN IV Agitation 03/28/19 00:15 04/04/19 00:14 03/31/19 05:59 Morphine Sulfate (Morphine Sulfate) 2 mg Q2H PRN IVP Severe Pain (Pain Scale 7-10) 03/28/19 20:15 04/04/19 20:14 03/28/19 23:05 Nitroglycerin (Ntg) 0.4 mg Q5MIN X 3 DOSES PRN SL Prn Chest Pain 03/26/19 20:15 04/25/19 20:14 Ondansetron HCl (Zofran) 4 mg Q6H PRN IVP Nausea & Vomiting 03/26/19 20:00 04/25/19 19:59 03/30/19 06:20 Pantoprazole (Protonix) 40 mg EVERY 12 HOURS IVP 03/30/19 09:00 04/29/19 08:59 03/30/19 20:32 Piperacillin Sod/ Tazobactam Sod 2.25 gm/Dextrose 55 ml @ 110 mls/hr Q8HR@0200,1000,1800 IV 03/30/19 18:00 04/06/19 17:59 03/31/19 01:31 Polyethylene Glycol (Miralax) 17 gm DAILYPRN PRN ORAL Constipation 03/26/19 20:00 04/25/19 19:59 Sodium Bicarbonate 150 ml/Dextrose 1,150 ml @ 30 mls/hr Q24H IV 03/29/19 13:30 04/28/19 13:29 Thiamine HCl 100 mg/Sodium Chloride 56 ml @ 112 mls/hr DAILY IVPB 03/29/19 09:00 04/28/19 08:59 03/30/19 09:14 Vancomycin HCl (Vanco rx to dose) 1 ea DAILY PRN MISC . 03/28/19 09:15 04/27/19 09:14 Vitamin D (Vitamin D) 5,000 intlu DAILY GT 03/30/19 10:00 04/29/19 09:59 03/30/19 10:04 Joseph Saleem MD Mar 31, 2019 07:18
[2019-03-31] MEDS: Vitamin D 1000 IU Tab GT SCH (09:24)
[2019-03-31] MEDS: Thiamine HCl 100 MG in NS 55 ML IVPB SCH (09:25)
[2019-03-31] MEDS: Pantoprazole Inj IVP SCH ×2 (09:25→20:43)
[2019-03-31] MEDS: Calcitriol 0.5mcg Cap ORAL SCH (09:25)
[2019-03-31] MEDS: Piperacillin/Tazobactam 2.25 GM in NS 55 ML IV SCH ×2 (09:26→18:17)
[2019-03-31] MEDS: Levemir Flexpen SUBQ SCH ×2 (09:40→18:00)
[2019-03-31] MEDS: Acetaminophen 650mg/20.3ml GT PRN ×2 (10:26→18:17)
[2019-03-31] MEDS ORDERED: Vancomycin 1 GM in NS 275 ML IVPB SCH (12:00)
--- NOTE | 2019-03-31 13:07 | GI Progress Note ---
Assessment/Plan Problems: (1) LFT elevation ICD Codes: R94.5 - Abnormal results of liver function studies SNOMED: 974335623, 705398673 (2) Electrolyte imbalance ICD Codes: E87.8 - Other disorders of electrolyte and fluid balance, not elsewhere classified SNOMED: 179637139 (3) DKA (diabetic ketoacidoses) ICD Codes: E11.10 - Type 2 diabetes mellitus with ketoacidosis without coma SNOMED: 279856495, 54194103 Qualifiers: Qualified Codes: E13.10 - Other specified diabetes mellitus with ketoacidosis without coma (4) History of diabetes mellitus ICD Codes: Z86.39 - Personal history of other endocrine, nutritional and metabolic disease SNOMED: 018567023 Status: unchanged Status Narrative Discussed with Dr. Jaimes. 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 I agree with the above findings, impression and plan. (Patient seen earlier today. Signature stamp does not reflect patient encounter time.). - Monty Jaimes MD Subjective Subjective limited Objective Last 24 Hour Vital Signs Date Time Temp Pulse Resp B/P (MAP) Pulse Ox O2 Delivery O2 Flow Rate FiO2 03/31/19 12:00 Mechanical Ventilator 03/31/19 12:00 100.0 125 35 141/79 95 Mechanical Ventilator 90 03/31/19 12:00 90 03/31/19 12:00 126 03/31/19 11:15 128 38 100 Mechanical Ventilator 90 117 32 90 03/31/19 11:00 124 28 131/69 100 Mechanical Ventilator 90 03/31/19 10:56 100.9 03/31/19 10:00 131 36 133/79 97 Mechanical Ventilator 90 03/31/19 09:30 127 33 140/85 98 Mechanical Ventilator 90 03/31/19 09:00 129 35 135/77 96 Mechanical Ventilator 90 03/31/19 08:30 124 37 90 03/31/19 08:30 123 31 131/97 100 Mechanical Ventilator 90 03/31/19 08:00 Mechanical Ventilator 03/31/19 08:00 131 03/31/19 08:00 101.0 129 32 141/80 97 Mechanical Ventilator 90 03/31/19 08:00 90 03/31/19 07:03 125 39 100 Mechanical Ventilator 90 121 31 90 03/31/19 07:00 26 Mechanical Ventilator 90 03/31/19 07:00 120 26 127/76 100 Mechanical Ventilator 90 03/31/19 06:30 125 34 03/31/19 06:00 33 Mechanical Ventilator 90 03/31/19 06:00 120 32 123/78 98 Mechanical Ventilator 90 03/31/19 05:59 33 Mechanical Ventilator 90 03/31/19 05:30 34 Mechanical Ventilator 90 03/31/19 05:10 120 35 90 03/31/19 05:00 33 Mechanical Ventilator 90 03/31/19 05:00 120 32 109/65 96 Mechanical Ventilator 90 03/31/19 04:00 99.3 125 38 129/78 94 Mechanical Ventilator 90 03/31/19 04:00 90 03/31/19 04:00 Mechanical Ventilator 03/31/19 04:00 38 Mechanical Ventilator 90 03/31/19 04:00 125 03/31/19 03:30 126 32 90 03/31/19 03:00 122 24 75/58 97 Mechanical Ventilator 90 03/31/19 03:00 24 Mechanical Ventilator 90 03/31/19 02:00 36 Mechanical Ventilator 90 03/31/19 02:00 121 36 121/76 95 Mechanical Ventilator 90 03/31/19 01:31 36 Mechanical Ventilator 90 03/31/19 01:14 120 35 90 03/31/19 01:00 115 34 132/93 96 Mechanical Ventilator 95 03/31/19 01:00 34 Mechanical Ventilator 95 03/31/19 00:00 95 03/31/19 00:00 98.8 117 34 127/85 96 Mechanical Ventilator 95 03/31/19 00:00 117 03/31/19 00:00 34 Mechanical Ventilator 95 03/31/19 00:00 Mechanical Ventilator 03/30/19 23:30 118 37 98 Mechanical Ventilator 90 120 42 90 03/30/19 23:00 29 Mechanical Ventilator 95 03/30/19 23:00 119 29 123/95 96 Mechanical Ventilator 95 03/30/19 22:30 33 Mechanical Ventilator 95 03/30/19 22:15 33 Mechanical Ventilator 95 03/30/19 22:00 115 29 115/89 99 Mechanical Ventilator 95 03/30/19 22:00 29 Mechanical Ventilator 95 03/30/19 21:30 109 34 85 03/30/19 21:00 33 Mechanical Ventilator 85 03/30/19 21:00 112 33 103/64 89 Mechanical Ventilator 85 03/30/19 20:33 33 Mechanical Ventilator 85 03/30/19 20:00 98.6 116 35 104/67 91 Mechanical Ventilator 85 03/30/19 20:00 Mechanical Ventilator 03/30/19 20:00 85 03/30/19 20:00 35 Mechanical Ventilator 85 03/30/19 19:30 116 03/30/19 19:30 122 37 85 03/30/19 19:00 34 Mechanical Ventilator 85 03/30/19 19:00 115 34 106/63 90 Mechanical Ventilator 85 03/30/19 18:00 34 Mechanical Ventilator 85 03/30/19 18:00 116 33 100/85 92 Mechanical Ventilator 85 03/30/19 17:30 118 33 104/72 94 Mechanical Ventilator 85 03/30/19 17:00 Mechanical Ventilator 03/30/19 17:00 34 Mechanical Ventilator 85 03/30/19 17:00 121 36 117/76 97 Mechanical Ventilator 85 03/30/19 16:43 123 39 85 03/30/19 16:30 125 32 89/54 96 Mechanical Ventilator 85 03/30/19 16:00 Mechanical Ventilator 03/30/19 16:00 34 Mechanical Ventilator 85 03/30/19 16:00 99.3 123 36 127/81 96 Mechanical Ventilator 85 03/30/19 15:30 126 28 121/98 94 Mechanical Ventilator 85 03/30/19 15:21 121 03/30/19 15:02 34 85 03/30/19 15:00 85 03/30/19 15:00 123 38 137/90 92 Mechanical Ventilator 85 03/30/19 14:35 114 27 99 Mechanical Ventilator 75 117 37 75 03/30/19 14:30 115 37 98/56 94 Mechanical Ventilator 85 03/30/19 14:00 35 Mechanical Ventilator 75 03/30/19 14:00 117 35 110/72 92 Mechanical Ventilator 75 03/30/19 13:30 116 37 122/74 92 Mechanical Ventilator 75 Intake and Output 03/30/19 03/31/19 19:00 07:00 Intake Total 1183.933 ml 794.5 ml Output Total 910 ml 880 ml Balance 273.933 ml -85.5 ml Free Water 100 ml 50 ml IV Total 828.933 ml 564.5 ml Tube Feeding 255 ml 180 ml Output Urine Total 910 ml 880 ml # Bowel Movements 2 Laboratory Tests Test 03/30/19 17:58 03/31/19 03:30 03/31/19 08:27 Stool Occult Blood Pending White Blood Count 13.8 K/UL (4.8-10.8) H Red Blood Count 2.85 M/UL (4.20-5.40) L Hemoglobin 8.9 G/DL (12.0-16.0) L Hematocrit 25.8 % (37.0-47.0) L Mean Corpuscular Volume 90 FL (80-99) Mean Corpuscular Hemoglobin 31.3 PG (27.0-31.0) H Mean Corpuscular Hemoglobin Concent 34.6 G/DL (32.0-36.0) Red Cell Distribution Width 14.7 % (11.6-14.8) Platelet Count 102 K/UL (150-450) L Mean Platelet Volume 6.8 FL (6.5-10.1) Neutrophils (%) (Auto) % (45.0-75.0) Lymphocytes (%) (Auto) % (20.0-45.0) Monocytes (%) (Auto) % (1.0-10.0) Eosinophils (%) (Auto) % (0.0-3.0) Basophils (%) (Auto) % (0.0-2.0) Differential Total Cells Counted 100 Neutrophils % (Manual) 84 % (45-75) H Lymphocytes % (Manual) 9 % (20-45) L Monocytes % (Manual) 5 % (1-10) Eosinophils % (Manual) 2 % (0-3) Basophils % (Manual) 0 % (0-2) Band Neutrophils 0 % (0-8) Platelet Estimate Decreased L Platelet Morphology Normal Hypochromasia 2+ Anisocytosis 1+ Spherocytes 1+ Sodium Level 140 MMOL/L (136-145) Potassium Level 3.3 MMOL/L (3.5-5.1) L Chloride Level 103 MMOL/L (98-107) Carbon Dioxide Level 28 MMOL/L (21-32) Anion Gap 10 mmol/L (5-15) Blood Urea Nitrogen 29 mg/dL (7-18) H Creatinine 4.3 MG/DL (0.55-1.30) H Estimat Glomerular Filtration Rate 13.8 mL/min (>60) Glucose Level 107 MG/DL (74-106) H Uric Acid 5.7 MG/DL (2.6-7.2) Calcium Level 7.9 MG/DL (8.5-10.1) #L Phosphorus Level 3.6 MG/DL (2.5-4.9) Magnesium Level 2.3 MG/DL (1.8-2.4) Total Bilirubin 1.7 MG/DL (0.2-1.0) H Direct Bilirubin 1.1 MG/DL (0.0-0.3) H Aspartate Amino Transf (AST/SGOT) 490 U/L (15-37) H Alanine Aminotransferase (ALT/SGPT) 1264 U/L (12-78) H Alkaline Phosphatase 669 U/L (46-116) H Troponin I 0.000 ng/mL (0.000-0.056) C-Reactive Protein, Quantitative 1.1 mg/dL (0.00-0.90) H Pro-B-Type Natriuretic Peptide 1833 pg/mL (0-125) H Total Protein 5.7 G/DL (6.4-8.2) L Albumin 1.9 G/DL (3.4-5.0) L Globulin 3.8 g/dL Albumin/Globulin Ratio 0.5 (1.0-2.7) L Random Vancomycin Level 17.1 ug/mL Arterial Blood pH 7.406 (7.350-7.450) Arterial Blood Partial Pressure CO2 42.2 mmHg (35.0-45.0) Arterial Blood Partial Pressure O2 76.3 mmHg (75.0-100.0) Arterial Blood HCO3 25.9 mmol/L (22.0-26.0) Arterial Blood Oxygen Saturation 94.3 % (95-100) L Arterial Blood Base Excess 1.1 (-2-2) Amarjit Test Positive Height (Feet): 5 Height (Inches): 2.00 Weight (Pounds): 194 General Appearance: no apparent distress Cardiovascular: normal rate Respiratory/Chest: normal breath sounds, no respiratory distress, other - mech vent Abdominal Exam: normal bowel sounds, non tender, soft, other - OGT Extremities: non-tender Carmen Ward NP Mar 31, 2019 13:07
--- NOTE | 2019-03-31 13:22 | Nephrology Progress Note ---
Assessment/Plan Problem List: (1) Acute renal failure (ARF) (2) Respiratory failure (3) DKA (diabetic ketoacidoses) (4) LFT elevation (5) Electrolyte imbalance Assessment: Low Mag and Low Ca (6) Thrombocytopathia Assessment Acute respiratory failure Acute renal failure high LFTs, thrombocytopenia ? HUS ? 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 Ca and Mag IV Vit K Vit D Echo Hyperkinetic wall motion. Left ventricular ejection fraction estimated to be 55-60 %. Moderate left ventricular hypertrophy by 2D. Abd CT: Evidence of acute on chronic pancreatitis. No pseudocyst. Hepatomegaly with severe steatosis. Subjective ROS Limited/Unobtainable: Yes Objective Objective Last 24 Hour Vital Signs Date Time Temp Pulse Resp B/P (MAP) Pulse Ox O2 Delivery O2 Flow Rate FiO2 03/31/19 12:38 120 35 90 03/31/19 12:00 Mechanical Ventilator 03/31/19 12:00 100.0 125 35 141/79 95 Mechanical Ventilator 90 03/31/19 12:00 90 03/31/19 12:00 126 03/31/19 11:15 128 38 100 Mechanical Ventilator 90 117 32 90 03/31/19 11:00 124 28 131/69 100 Mechanical Ventilator 90 03/31/19 10:56 100.9 03/31/19 10:00 131 36 133/79 97 Mechanical Ventilator 90 03/31/19 09:30 127 33 140/85 98 Mechanical Ventilator 90 03/31/19 09:00 129 35 135/77 96 Mechanical Ventilator 90 03/31/19 08:30 124 37 90 03/31/19 08:30 123 31 131/97 100 Mechanical Ventilator 90 03/31/19 08:00 Mechanical Ventilator 03/31/19 08:00 131 03/31/19 08:00 101.0 129 32 141/80 97 Mechanical Ventilator 90 03/31/19 08:00 90 03/31/19 07:03 125 39 100 Mechanical Ventilator 90 121 31 90 03/31/19 07:00 26 Mechanical Ventilator 90 03/31/19 07:00 120 26 127/76 100 Mechanical Ventilator 90 03/31/19 06:30 125 34 03/31/19 06:00 33 Mechanical Ventilator 90 03/31/19 06:00 120 32 123/78 98 Mechanical Ventilator 90 03/31/19 05:59 33 Mechanical Ventilator 90 03/31/19 05:30 34 Mechanical Ventilator 90 03/31/19 05:10 120 35 90 03/31/19 05:00 33 Mechanical Ventilator 90 03/31/19 05:00 120 32 109/65 96 Mechanical Ventilator 90 03/31/19 04:00 99.3 125 38 129/78 94 Mechanical Ventilator 90 03/31/19 04:00 90 03/31/19 04:00 Mechanical Ventilator 03/31/19 04:00 38 Mechanical Ventilator 90 03/31/19 04:00 125 03/31/19 03:30 126 32 90 03/31/19 03:00 122 24 75/58 97 Mechanical Ventilator 90 03/31/19 03:00 24 Mechanical Ventilator 90 03/31/19 02:00 36 Mechanical Ventilator 90 03/31/19 02:00 121 36 121/76 95 Mechanical Ventilator 90 03/31/19 01:31 36 Mechanical Ventilator 90 03/31/19 01:14 120 35 90 03/31/19 01:00 115 34 132/93 96 Mechanical Ventilator 95 03/31/19 01:00 34 Mechanical Ventilator 95 03/31/19 00:00 95 03/31/19 00:00 98.8 117 34 127/85 96 Mechanical Ventilator 95 03/31/19 00:00 117 03/31/19 00:00 34 Mechanical Ventilator 95 03/31/19 00:00 Mechanical Ventilator 03/30/19 23:30 118 37 98 Mechanical Ventilator 90 120 42 90 03/30/19 23:00 29 Mechanical Ventilator 95 03/30/19 23:00 119 29 123/95 96 Mechanical Ventilator 95 03/30/19 22:30 33 Mechanical Ventilator 95 03/30/19 22:15 33 Mechanical Ventilator 95 03/30/19 22:00 115 29 115/89 99 Mechanical Ventilator 95 03/30/19 22:00 29 Mechanical Ventilator 95 03/30/19 21:30 109 34 85 03/30/19 21:00 33 Mechanical Ventilator 85 03/30/19 21:00 112 33 103/64 89 Mechanical Ventilator 85 03/30/19 20:33 33 Mechanical Ventilator 85 03/30/19 20:00 98.6 116 35 104/67 91 Mechanical Ventilator 85 03/30/19 20:00 Mechanical Ventilator 03/30/19 20:00 85 03/30/19 20:00 35 Mechanical Ventilator 85 03/30/19 19:30 116 03/30/19 19:30 122 37 85 03/30/19 19:00 34 Mechanical Ventilator 85 03/30/19 19:00 115 34 106/63 90 Mechanical Ventilator 85 03/30/19 18:00 34 Mechanical Ventilator 85 03/30/19 18:00 116 33 100/85 92 Mechanical Ventilator 85 03/30/19 17:30 118 33 104/72 94 Mechanical Ventilator 85 03/30/19 17:00 Mechanical Ventilator 03/30/19 17:00 34 Mechanical Ventilator 85 03/30/19 17:00 121 36 117/76 97 Mechanical Ventilator 85 03/30/19 16:43 123 39 85 03/30/19 16:30 125 32 89/54 96 Mechanical Ventilator 85 03/30/19 16:00 Mechanical Ventilator 03/30/19 16:00 34 Mechanical Ventilator 85 03/30/19 16:00 99.3 123 36 127/81 96 Mechanical Ventilator 85 03/30/19 15:30 126 28 121/98 94 Mechanical Ventilator 85 03/30/19 15:21 121 03/30/19 15:02 34 85 03/30/19 15:00 85 03/30/19 15:00 123 38 137/90 92 Mechanical Ventilator 85 03/30/19 14:35 114 27 99 Mechanical Ventilator 75 117 37 75 03/30/19 14:30 115 37 98/56 94 Mechanical Ventilator 85 03/30/19 14:00 35 Mechanical Ventilator 75 03/30/19 14:00 117 35 110/72 92 Mechanical Ventilator 75 03/30/19 13:30 116 37 122/74 92 Mechanical Ventilator 75 Intake and Output 03/30/19 03/31/19 19:00 07:00 Intake Total 1183.933 ml 794.5 ml Output Total 910 ml 880 ml Balance 273.933 ml -85.5 ml Free Water 100 ml 50 ml IV Total 828.933 ml 564.5 ml Tube Feeding 255 ml 180 ml Output Urine Total 910 ml 880 ml # Bowel Movements 2 Laboratory Tests 03/30/19 17:58: Stool Occult Blood [Pending] 03/31/19 03:30: White Blood Count 13.8H, Red Blood Count 2.85L, Hemoglobin 8.9L, Hematocrit 25.8L, Mean Corpuscular Volume 90, Mean Corpuscular Hemoglobin 31.3H, Mean Corpuscular Hemoglobin Concent 34.6, Red Cell Distribution Width 14.7, Platelet Count 102L, Mean Platelet Volume 6.8, Neutrophils (%) (Auto) , Lymphocytes (%) ( Auto) , Monocytes (%) (Auto) , Eosinophils (%) (Auto) , Basophils (%) (Auto) , Differential Total Cells Counted 100, Neutrophils % (Manual) 84H, Lymphocytes % (Manual) 9L, Monocytes % (Manual) 5, Eosinophils % (Manual) 2, Basophils % ( Manual) 0, Band Neutrophils 0, Platelet Estimate DecreasedL, Platelet Morphology Normal, Hypochromasia 2+, Anisocytosis 1+, Spherocytes 1+, Sodium Level 140, Potassium Level 3.3L, Chloride Level 103, Carbon Dioxide Level 28, Anion Gap 10, Blood Urea Nitrogen 29H, Creatinine 4.3H, Estimat Glomerular Filtration Rate 13.8, Glucose Level 107H, Uric Acid 5.7, Calcium Level 7.9#L, Phosphorus Level 3.6, Magnesium Level 2.3, Total Bilirubin 1.7H, Direct Bilirubin 1.1H, Aspartate Amino Transf (AST/SGOT) 490H, Alanine Aminotransferase (ALT/SGPT) 1264H, Alkaline Phosphatase 669H, Troponin I 0.000, C-Reactive Protein, Quantitative 1.1H, Pro-B-Type Natriuretic Peptide 1833H, Total Protein 5.7L, Albumin 1.9L, Globulin 3.8, Albumin/Globulin Ratio 0.5L, Random Vancomycin Level 17.1 03/31/19 08:27: Arterial Blood pH 7.406, Arterial Blood Partial Pressure CO2 42.2, Arterial Blood Partial Pressure O2 76.3, Arterial Blood HCO3 25.9, Arterial Blood Oxygen Saturation 94.3L, Arterial Blood Base Excess 1.1, Amarjit Test Positive Height (Feet): 5 Height (Inches): 2.00 Weight (Pounds): 194 General Appearance: no apparent distress Cardiovascular: tachycardia Respiratory/Chest: decreased breath sounds Abdomen: soft Amrit Lopez MD Mar 31, 2019 13:22
[2019-03-31] MEDS: Sodium Bicarbonate 150 ML in D5W 1000ml 1,000 ML IV SCH (13:30)
--- NOTE | 2019-03-31 15:41 | Surgery Progress Note ---
Surgery Progress Note Subjective Procedure Performed right femoral central venous catheter insertion Additional Comments on vent support labs noted lft's noted leukocytosis edema overall prognosis guarded but somewhat stable Objective Last 24 Hour Vital Signs Date Time Temp Pulse Resp B/P (MAP) Pulse Ox O2 Delivery O2 Flow Rate FiO2 03/31/19 15:05 111 25 126/90 100 Mechanical Ventilator 90 03/31/19 14:30 114 32 128/82 100 Mechanical Ventilator 90 03/31/19 14:00 118 29 134/86 100 Mechanical Ventilator 90 03/31/19 13:30 119 29 133/79 100 Mechanical Ventilator 90 03/31/19 13:00 117 23 131/82 100 Mechanical Ventilator 90 03/31/19 12:38 120 35 90 03/31/19 12:00 Mechanical Ventilator 03/31/19 12:00 100.0 125 35 141/79 95 Mechanical Ventilator 90 03/31/19 12:00 90 03/31/19 12:00 126 03/31/19 11:15 128 38 100 Mechanical Ventilator 90 117 32 90 03/31/19 11:00 124 28 131/69 100 Mechanical Ventilator 90 03/31/19 10:56 100.9 03/31/19 10:00 131 36 133/79 97 Mechanical Ventilator 90 03/31/19 09:30 127 33 140/85 98 Mechanical Ventilator 90 03/31/19 09:00 129 35 135/77 96 Mechanical Ventilator 90 03/31/19 08:30 124 37 90 03/31/19 08:30 123 31 131/97 100 Mechanical Ventilator 90 03/31/19 08:00 Mechanical Ventilator 03/31/19 08:00 131 03/31/19 08:00 101.0 129 32 141/80 97 Mechanical Ventilator 90 03/31/19 08:00 90 03/31/19 07:03 125 39 100 Mechanical Ventilator 90 121 31 90 03/31/19 07:00 26 Mechanical Ventilator 90 03/31/19 07:00 120 26 127/76 100 Mechanical Ventilator 90 03/31/19 06:30 125 34 03/31/19 06:00 33 Mechanical Ventilator 90 03/31/19 06:00 120 32 123/78 98 Mechanical Ventilator 90 03/31/19 05:59 33 Mechanical Ventilator 90 03/31/19 05:30 34 Mechanical Ventilator 90 03/31/19 05:10 120 35 90 03/31/19 05:00 33 Mechanical Ventilator 90 03/31/19 05:00 120 32 109/65 96 Mechanical Ventilator 90 03/31/19 04:00 99.3 125 38 129/78 94 Mechanical Ventilator 90 03/31/19 04:00 90 03/31/19 04:00 Mechanical Ventilator 03/31/19 04:00 38 Mechanical Ventilator 90 03/31/19 04:00 125 03/31/19 03:30 126 32 90 03/31/19 03:00 122 24 75/58 97 Mechanical Ventilator 90 03/31/19 03:00 24 Mechanical Ventilator 90 03/31/19 02:00 36 Mechanical Ventilator 90 03/31/19 02:00 121 36 121/76 95 Mechanical Ventilator 90 03/31/19 01:31 36 Mechanical Ventilator 90 03/31/19 01:14 120 35 90 03/31/19 01:00 115 34 132/93 96 Mechanical Ventilator 95 03/31/19 01:00 34 Mechanical Ventilator 95 03/31/19 00:00 95 03/31/19 00:00 98.8 117 34 127/85 96 Mechanical Ventilator 95 03/31/19 00:00 117 03/31/19 00:00 34 Mechanical Ventilator 95 03/31/19 00:00 Mechanical Ventilator 03/30/19 23:30 118 37 98 Mechanical Ventilator 90 120 42 90 03/30/19 23:00 29 Mechanical Ventilator 95 03/30/19 23:00 119 29 123/95 96 Mechanical Ventilator 95 03/30/19 22:30 33 Mechanical Ventilator 95 03/30/19 22:15 33 Mechanical Ventilator 95 03/30/19 22:00 115 29 115/89 99 Mechanical Ventilator 95 03/30/19 22:00 29 Mechanical Ventilator 95 03/30/19 21:30 109 34 85 03/30/19 21:00 33 Mechanical Ventilator 85 03/30/19 21:00 112 33 103/64 89 Mechanical Ventilator 85 03/30/19 20:33 33 Mechanical Ventilator 85 03/30/19 20:00 98.6 116 35 104/67 91 Mechanical Ventilator 85 03/30/19 20:00 Mechanical Ventilator 03/30/19 20:00 85 03/30/19 20:00 35 Mechanical Ventilator 85 03/30/19 19:30 116 03/30/19 19:30 122 37 85 03/30/19 19:00 34 Mechanical Ventilator 85 03/30/19 19:00 115 34 106/63 90 Mechanical Ventilator 85 03/30/19 18:00 34 Mechanical Ventilator 85 03/30/19 18:00 116 33 100/85 92 Mechanical Ventilator 85 03/30/19 17:30 118 33 104/72 94 Mechanical Ventilator 85 03/30/19 17:00 Mechanical Ventilator 03/30/19 17:00 34 Mechanical Ventilator 85 03/30/19 17:00 121 36 117/76 97 Mechanical Ventilator 85 03/30/19 16:43 123 39 85 03/30/19 16:30 125 32 89/54 96 Mechanical Ventilator 85 03/30/19 16:00 Mechanical Ventilator 03/30/19 16:00 34 Mechanical Ventilator 85 03/30/19 16:00 99.3 123 36 127/81 96 Mechanical Ventilator 85 I&O Intake and Output 03/30/19 03/31/19 18:59 06:59 Intake Total 1056.433 ml 989.5 ml Output Total 905 ml 830 ml Balance 151.433 ml 159.5 ml Free Water 100 ml 50 ml IV Total 696.433 ml 739.5 ml Tube Feeding 260 ml 200 ml Output Urine Total 905 ml 830 ml # Bowel Movements 2 Dressing: other Wound: other Drains: other Cardiovascular: RSR Respiratory: decreased breath sounds Abdomen: soft, non-distended, decreased bowel sounds Extremities: edema, no cyanosis, other Laboratory Tests Test 03/30/19 17:58 03/31/19 03:30 03/31/19 08:27 Stool Occult Blood Positive (NEGATIVE) White Blood Count 13.8 K/UL (4.8-10.8) H Red Blood Count 2.85 M/UL (4.20-5.40) L Hemoglobin 8.9 G/DL (12.0-16.0) L Hematocrit 25.8 % (37.0-47.0) L Mean Corpuscular Volume 90 FL (80-99) Mean Corpuscular Hemoglobin 31.3 PG (27.0-31.0) H Mean Corpuscular Hemoglobin Concent 34.6 G/DL (32.0-36.0) Red Cell Distribution Width 14.7 % (11.6-14.8) Platelet Count 102 K/UL (150-450) L Mean Platelet Volume 6.8 FL (6.5-10.1) Neutrophils (%) (Auto) % (45.0-75.0) Lymphocytes (%) (Auto) % (20.0-45.0) Monocytes (%) (Auto) % (1.0-10.0) Eosinophils (%) (Auto) % (0.0-3.0) Basophils (%) (Auto) % (0.0-2.0) Differential Total Cells Counted 100 Neutrophils % (Manual) 84 % (45-75) H Lymphocytes % (Manual) 9 % (20-45) L Monocytes % (Manual) 5 % (1-10) Eosinophils % (Manual) 2 % (0-3) Basophils % (Manual) 0 % (0-2) Band Neutrophils 0 % (0-8) Platelet Estimate Decreased L Platelet Morphology Normal Hypochromasia 2+ Anisocytosis 1+ Spherocytes 1+ Sodium Level 140 MMOL/L (136-145) Potassium Level 3.3 MMOL/L (3.5-5.1) L Chloride Level 103 MMOL/L (98-107) Carbon Dioxide Level 28 MMOL/L (21-32) Anion Gap 10 mmol/L (5-15) Blood Urea Nitrogen 29 mg/dL (7-18) H Creatinine 4.3 MG/DL (0.55-1.30) H Estimat Glomerular Filtration Rate 13.8 mL/min (>60) Glucose Level 107 MG/DL (74-106) H Uric Acid 5.7 MG/DL (2.6-7.2) Calcium Level 7.9 MG/DL (8.5-10.1) #L Phosphorus Level 3.6 MG/DL (2.5-4.9) Magnesium Level 2.3 MG/DL (1.8-2.4) Total Bilirubin 1.7 MG/DL (0.2-1.0) H Direct Bilirubin 1.1 MG/DL (0.0-0.3) H Aspartate Amino Transf (AST/SGOT) 490 U/L (15-37) H Alanine Aminotransferase (ALT/SGPT) 1264 U/L (12-78) H Alkaline Phosphatase 669 U/L (46-116) H Troponin I 0.000 ng/mL (0.000-0.056) C-Reactive Protein, Quantitative 1.1 mg/dL (0.00-0.90) H Pro-B-Type Natriuretic Peptide 1833 pg/mL (0-125) H Total Protein 5.7 G/DL (6.4-8.2) L Albumin 1.9 G/DL (3.4-5.0) L Globulin 3.8 g/dL Albumin/Globulin Ratio 0.5 (1.0-2.7) L Random Vancomycin Level 17.1 ug/mL Arterial Blood pH 7.406 (7.350-7.450) Arterial Blood Partial Pressure CO2 42.2 mmHg (35.0-45.0) Arterial Blood Partial Pressure O2 76.3 mmHg (75.0-100.0) Arterial Blood HCO3 25.9 mmol/L (22.0-26.0) Arterial Blood Oxygen Saturation 94.3 % (95-100) L Arterial Blood Base Excess 1.1 (-2-2) Amarjit Test Positive Plan Problems: (1) Abdominal pain Assessment & Plan: 43F presented with abd pain per report 01/04 generalized unable to obtain exam now that she is intubated in distress labs noted ventral incisional hernia reducible abd soft -npo -iv fluids -okay to tube feeds trend labs -will order imaging when stabilized -HD as per renal -appreciate ICU care will follow with recs thank you (2) Ventral hernia (3) Acute on chronic pancreatitis Assessment & Plan: Evidence of acute on chronic pancreatitis. No pseudocyst. Hepatomegaly with severe steatosis. Mild hiatal hernia. 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 see note HD as per renal vent support trend labs will follow with recs Lefty Meraz Mar 31, 2019 15:41
--- NOTE | 2019-03-31 17:38 | Internal Med Progress Note ---
Subjective Date of Service: Mar 31, 2019 Physician Name Marshal Gilbert Attending Physician Shree Mcintyre MD Current Medications Medications (Trade) Dose Ordered Sig/Greta Route PRN Reason Start Time Stop Time Status Last Admin Dose Admin Acetaminophen (Tylenol) 650 mg Q4H PRN GT T>100.5 03/30/19 09:45 04/29/19 09:44 03/31/19 10:26 Albuterol/ Ipratropium (Albuterol/ Ipratropium) 3 ml Q4H PRN HHN Shortness of Breath 03/26/19 20:00 03/31/19 19:59 03/27/19 11:19 Calcitriol (Rocatrol) 0.5 mcg DAILY GT 04/01/19 09:00 05/01/19 08:59 Calcium Gluconate 1 gm/Sodium Chloride 120 ml @ 240 mls/hr Q8HR IVPB 03/31/19 22:00 04/29/19 11:59 Chlorhexidine Gluconate (Hetal-Hex 2%) 1 applic DAILY@2000 TOPIC 03/27/19 20:00 04/26/19 19:59 03/30/19 19:58 Dextrose (Dextrose 50%) 25 ml Q30M PRN IV Hypoglycemia 03/28/19 11:30 04/27/19 11:29 Dextrose (Dextrose 50%) 50 ml Q30M PRN IV Hypoglycemia 03/28/19 11:30 04/27/19 11:29 Epoetin John (Epoetin John(ESRD on dialysis)) 10,000 unit [id number] SUBQ 03/30/19 21:00 04/29/19 20:59 03/30/19 20:32 Guaifenesin (Robitussin) 200 mg Q4H PRN GT For Cough 03/30/19 09:45 04/26/19 11:14 Insulin Aspart (NovoLOG) EVERY 4 HOURS SUBQ 03/28/19 17:00 04/27/19 11:59 03/31/19 09:40 Insulin Detemir (Levemir) 6 units BID SUBQ 03/30/19 09:00 04/27/19 11:59 03/31/19 09:40 Iopamidol (Isovue-300 100ml) 100 ml NOW PRN INJ Radiology Procedure 03/26/19 17:00 Ipratropium [place] (Atrovent) 500 mcg Q4HRT HHN 03/27/19 19:00 04/01/19 18:59 03/31/19 14:39 Lorazepam (Ativan 2mg/ml 1ml) 1 mg Q2H PRN IV agitation 03/27/19 18:00 04/02/19 19:59 03/30/19 22:48 Midazolam HCl 100 ml @ 0 mls/hr Q24H PRN IV Agitation 03/28/19 00:15 04/04/19 00:14 03/31/19 11:52 Morphine Sulfate (Morphine Sulfate) 2 mg Q2H PRN IVP Severe Pain (Pain Scale 7-10) 03/28/19 20:15 04/04/19 20:14 03/28/19 23:05 Nitroglycerin (Ntg) 0.4 mg Q5MIN X 3 DOSES PRN SL Prn Chest Pain 03/26/19 20:15 04/25/19 20:14 Ondansetron HCl (Zofran) 4 mg Q6H PRN IVP Nausea & Vomiting 03/26/19 20:00 04/25/19 19:59 03/30/19 06:20 Pantoprazole (Protonix) 40 mg EVERY 12 HOURS IVP 03/30/19 09:00 04/29/19 08:59 03/31/19 09:25 Piperacillin Sod/ Tazobactam Sod 2.25 gm/Sodium Chloride 55 ml @ 110 mls/hr Q8HR@0200,1000,1800 IV 03/31/19 10:00 04/06/19 17:59 03/31/19 09:26 Polyethylene Glycol (Miralax) 17 gm DAILYPRN PRN ORAL Constipation 03/26/19 20:00 04/25/19 19:59 Sodium Bicarbonate 150 ml/Dextrose 1,150 ml @ 30 mls/hr Q24H IV 03/29/19 13:30 04/28/19 13:29 Thiamine HCl 100 mg/Sodium Chloride 56 ml @ 112 mls/hr DAILY IVPB 03/29/19 09:00 04/28/19 08:59 03/31/19 09:25 Vancomycin HCl (Vanco rx to dose) 1 ea DAILY PRN MISC . 03/28/19 09:15 04/27/19 09:14 Vitamin D (Vitamin D) 5,000 intlu DAILY GT 03/30/19 10:00 04/29/19 09:59 03/31/19 09:24 Allergies: Coded Allergies: No Known Allergies (Unverified , 08/04/18) ROS Limited/Unobtainable: Yes Subjective 43 YO F admitted with diabetic ketoacidosis. Now ARDS and respiratory failure. Intubated and sedated. Cover for Int Jorge-Dr Mcintyre. ICU Objective Last Vital Signs Date Time Temp Pulse Resp B/P (MAP) Pulse Ox O2 Delivery O2 Flow Rate FiO2 03/31/19 16:30 108 26 117/73 100 Mechanical Ventilator 90 03/31/19 16:00 99.8 03/27/19 15:00 4.0 Laboratory Tests Test 03/30/19 17:58 03/31/19 03:30 03/31/19 08:27 Stool Occult Blood Positive (NEGATIVE) White Blood Count 13.8 K/UL (4.8-10.8) H Red Blood Count 2.85 M/UL (4.20-5.40) L Hemoglobin 8.9 G/DL (12.0-16.0) L Hematocrit 25.8 % (37.0-47.0) L Mean Corpuscular Volume 90 FL (80-99) Mean Corpuscular Hemoglobin 31.3 PG (27.0-31.0) H Mean Corpuscular Hemoglobin Concent 34.6 G/DL (32.0-36.0) Red Cell Distribution Width 14.7 % (11.6-14.8) Platelet Count 102 K/UL (150-450) L Mean Platelet Volume 6.8 FL (6.5-10.1) Neutrophils (%) (Auto) % (45.0-75.0) Lymphocytes (%) (Auto) % (20.0-45.0) Monocytes (%) (Auto) % (1.0-10.0) Eosinophils (%) (Auto) % (0.0-3.0) Basophils (%) (Auto) % (0.0-2.0) Differential Total Cells Counted 100 Neutrophils % (Manual) 84 % (45-75) H Lymphocytes % (Manual) 9 % (20-45) L Monocytes % (Manual) 5 % (1-10) Eosinophils % (Manual) 2 % (0-3) Basophils % (Manual) 0 % (0-2) Band Neutrophils 0 % (0-8) Platelet Estimate Decreased L Platelet Morphology Normal Hypochromasia 2+ Anisocytosis 1+ Spherocytes 1+ Sodium Level 140 MMOL/L (136-145) Potassium Level 3.3 MMOL/L (3.5-5.1) L Chloride Level 103 MMOL/L (98-107) Carbon Dioxide Level 28 MMOL/L (21-32) Anion Gap 10 mmol/L (5-15) Blood Urea Nitrogen 29 mg/dL (7-18) H Creatinine 4.3 MG/DL (0.55-1.30) H Estimat Glomerular Filtration Rate 13.8 mL/min (>60) Glucose Level 107 MG/DL (74-106) H Uric Acid 5.7 MG/DL (2.6-7.2) Calcium Level 7.9 MG/DL (8.5-10.1) #L Phosphorus Level 3.6 MG/DL (2.5-4.9) Magnesium Level 2.3 MG/DL (1.8-2.4) Total Bilirubin 1.7 MG/DL (0.2-1.0) H Direct Bilirubin 1.1 MG/DL (0.0-0.3) H Aspartate Amino Transf (AST/SGOT) 490 U/L (15-37) H Alanine Aminotransferase (ALT/SGPT) 1264 U/L (12-78) H Alkaline Phosphatase 669 U/L (46-116) H Troponin I 0.000 ng/mL (0.000-0.056) C-Reactive Protein, Quantitative 1.1 mg/dL (0.00-0.90) H Pro-B-Type Natriuretic Peptide 1833 pg/mL (0-125) H Total Protein 5.7 G/DL (6.4-8.2) L Albumin 1.9 G/DL (3.4-5.0) L Globulin 3.8 g/dL Albumin/Globulin Ratio 0.5 (1.0-2.7) L Random Vancomycin Level 17.1 ug/mL Arterial Blood pH 7.406 (7.350-7.450) Arterial Blood Partial Pressure CO2 42.2 mmHg (35.0-45.0) Arterial Blood Partial Pressure O2 76.3 mmHg (75.0-100.0) Arterial Blood HCO3 25.9 mmol/L (22.0-26.0) Arterial Blood Oxygen Saturation 94.3 % (95-100) L Arterial Blood Base Excess 1.1 (-2-2) Amarjit Test Positive Intake and Output 03/30/19 03/31/19 18:59 06:59 Intake Total 1056.433 ml 989.5 ml Output Total 905 ml 830 ml Balance 151.433 ml 159.5 ml Free Water 100 ml 50 ml IV Total 696.433 ml 739.5 ml Tube Feeding 260 ml 200 ml Output Urine Total 905 ml 830 ml # Bowel Movements 2 Assessment/Plan Assessment/Plan ASSESSMENT: This is a 43-year-old female with: 1. Abdominal pain. 2. Acute on chronic pancreatitis. 3. Diabetic ketoacidosis. 4. Hyperglycemia. 5. Renal failure. 6. Diabetes type 2. 7. Hypertension. 8. Ventral hernia. 9. ARDs/bilateral infiltrates/Respiratory failure 10. Elevated liver funct tests 11. Thrombocytopenia=improving TREATMENT: 1. Abdominal pain/acute pancreatitis. A Gastroenterology consultation has been obtained with Dr. Monty Jaimes. We will follow recommendations of Gastroenterology. The patient is currently NPO. 2. Diabetic ketoacidosis/hyperglycemia. An Endocrinology consultation= Dr. Joseph Saleem. The patient has been placed on an aspart insulin sliding scale and levemir. We will follow recommendations of Endocrinology. 3. Renal failure. A Nephrology consultation has been obtained with Dr. Lopez. Hemodialysis 03/31/19 4. Hypertension. Continue amlodipine as above. 5. Ventral hernia. 6. Mechanical vent per pulmonary=Balfe 7. ABX=zosyn and Marshal Mcgowan MD Mar 31, 2019 17:38
--- NOTE | 2019-03-31 18:48 | Pulmonolgy Critical Care Note ---
Critical Care - Asmt/Plan Assessment/Plan: Pulmonary Critical Care Progress Note HPI Patient is a 43-year-old woman with past history of Diabetes, Hypertension, Chronic Obstructive Pulmonary Disease, admitted with Acute on Chronic Pancreatitis, elevated Liver Functions, Thrombocytopenia. Had c/o abdominal pain , nausea and vomiting, shortness of breath, coughing. She has a history of pancreatitis, noted to have features of Pancreatitis as well as azotemia, elevated liver function tests. She has history of multiple hernia operations, last in May 2018. No fevers or chills. Denies chest pain. No other aggravating relieving factors. Denies any other associated symptoms. Patient noted to be in Diabetic Ketoacidosis on admission - remains on Insulin gtt, Metabolic acidosis, ARDS/fluid overload, requiring intubation and mechanical ventilation, Worsening Acute Renal Failure, s/p Hemodialysis Allergies: No Known Allergies Past Medical History: Diabetes, Hypertension, Chronic Obstructive Pulmonary Disease, Pancreatitis Physical Exam Vital Signs Noted General Appearance: sedated on the ventilator Head: normocephalic, atraumatic Eyes: bilateral eye normal inspection, bilateral PERRL ENT: moist mm, ETT Neck: no LN, no masses Respiratory: bilateral rhonchi, BS equal bilaterally Cardiovascular: HS1, HS2 normal, moderate edema, tachycardia Gastrointestinal: normal bowel sounds, soft, non-distended, tenderness - epigastric, hernia - ventral Musculoskeletal: well perfused, moving all limbs Neurologic: no seizures, no focal signs Impression: Pneumonia vs ARDS Respiratory Failure with high FIO2 and PEEP requirements, remains in positive fluid balance despite diuresis Acute on Chronic Pancreatitis Hypocalcemia sp replacement Hypomagnesemia s/p replacement Reduced Albumin level Worsening Acute Renal Failurefor HD Elevated Liver Function Tests Significant previous Alcohol abuse per her partner Thrombocytopenia GI bleed - on Protonix gtt Diabetic ketoacidoses Severe metabolic acidosis H/o Hypertension H/o Chronic Obstructive Pulmonary Disease, H/o Multiple Previous Hernia Surgeries Plan ACVC, Vt 450, Increase RR 24, adjust PEEP 12, adjust FIO2 ETT in good position Dialysis per renal, still making urine Monitor labs, Repeat ABG PRN HHN Broad spectrum antibiotics PRN Sedation PPX: SCD/Protonix Insulin gtt DW PMD Labs noted Echo: Preserved LV function EKG: Rate: tachycardiac Rhythm: NSR ST Segments: no acute changes ASA given to the pt in ED: No Chest X-Ray 03/26/2019: no consolidation, no effusion, no pneumothorax, no acute cardiopulmonary disease CXR: 03/27/2019: worsening bilateral infiltrates, low lung volumes, ETT low CT A/P: Lung bases: No mass. No consolidation. ABDOMEN: Liver: Unremarkable. Gallbladder and bile ducts: Unremarkable. Pancreas: Stranding around the pancreas. Multiple calcifications within the pancreas.. Spleen: Unremarkable. Adrenals: Unremarkable. Kidneys and ureters: No hydronephrosis. Stomach and bowel: No bowel obstruction. No bowel wall thickening. Fatty infiltration of the colonic wall. Mild hiatal hernia. PELVIS: Appendix: No evidence of appendicitis. Bladder: Unremarkable. Reproductive: Unremarkable. ABDOMEN and PELVIS: Intraperitoneal space: Unremarkable. Bones/joints: No acute fractures. Soft tissues: Fat containing periumbilical hernia. Vasculature: No abdominal aortic aneurysm. Lymph nodes: No enlarged lymph nodes. Critical Care - Objective Last 24 Hour Vital Signs Date Time Temp Pulse Resp B/P (MAP) Pulse Ox O2 Delivery O2 Flow Rate FiO2 03/31/19 18:00 107 26 118/79 100 Mechanical Ventilator 90 03/31/19 17:00 106 25 124/82 100 Mechanical Ventilator 90 03/31/19 16:55 114 29 90 03/31/19 16:30 108 26 117/73 100 Mechanical Ventilator 90 03/31/19 16:00 Mechanical Ventilator 03/31/19 16:00 90 03/31/19 16:00 99.8 113 24 159/100 99 Mechanical Ventilator 90 03/31/19 16:00 111 03/31/19 15:05 111 25 126/90 100 Mechanical Ventilator 90 03/31/19 14:49 114 29 100 Mechanical Ventilator 90 106 26 90 03/31/19 14:30 114 32 128/82 100 Mechanical Ventilator 90 03/31/19 14:00 118 29 134/86 100 Mechanical Ventilator 90 03/31/19 13:30 119 29 133/79 100 Mechanical Ventilator 90 03/31/19 13:00 117 23 131/82 100 Mechanical Ventilator 90 03/31/19 12:38 120 35 90 03/31/19 12:00 Mechanical Ventilator 03/31/19 12:00 100.0 125 35 141/79 95 Mechanical Ventilator 90 03/31/19 12:00 90 03/31/19 12:00 126 03/31/19 11:15 128 38 100 Mechanical Ventilator 90 117 32 90 03/31/19 11:00 124 28 131/69 100 Mechanical Ventilator 90 03/31/19 10:56 100.9 03/31/19 10:00 131 36 133/79 97 Mechanical Ventilator 90 03/31/19 09:30 127 33 140/85 98 Mechanical Ventilator 90 03/31/19 09:00 129 35 135/77 96 Mechanical Ventilator 90 03/31/19 08:30 124 37 90 03/31/19 08:30 123 31 131/97 100 Mechanical Ventilator 90 03/31/19 08:00 Mechanical Ventilator 03/31/19 08:00 131 03/31/19 08:00 101.0 129 32 141/80 97 Mechanical Ventilator 90 03/31/19 08:00 90 03/31/19 07:03 125 39 100 Mechanical Ventilator 90 121 31 90 03/31/19 07:00 26 Mechanical Ventilator 90 03/31/19 07:00 120 26 127/76 100 Mechanical Ventilator 90 03/31/19 06:30 125 34 03/31/19 06:00 33 Mechanical Ventilator 90 03/31/19 06:00 120 32 123/78 98 Mechanical Ventilator 90 03/31/19 05:59 33 Mechanical Ventilator 90 03/31/19 05:30 34 Mechanical Ventilator 90 03/31/19 05:10 120 35 90 03/31/19 05:00 33 Mechanical Ventilator 90 03/31/19 05:00 120 32 109/65 96 Mechanical Ventilator 90 03/31/19 04:00 99.3 125 38 129/78 94 Mechanical Ventilator 90 03/31/19 04:00 90 03/31/19 04:00 Mechanical Ventilator 03/31/19 04:00 38 Mechanical Ventilator 90 03/31/19 04:00 125 03/31/19 03:30 126 32 90 03/31/19 03:00 122 24 75/58 97 Mechanical Ventilator 90 03/31/19 03:00 24 Mechanical Ventilator 90 03/31/19 02:00 36 Mechanical Ventilator 90 03/31/19 02:00 121 36 121/76 95 Mechanical Ventilator 90 03/31/19 01:31 36 Mechanical Ventilator 90 03/31/19 01:14 120 35 90 03/31/19 01:00 115 34 132/93 96 Mechanical Ventilator 95 03/31/19 01:00 34 Mechanical Ventilator 95 03/31/19 00:00 95 03/31/19 00:00 98.8 117 34 127/85 96 Mechanical Ventilator 95 03/31/19 00:00 117 03/31/19 00:00 34 Mechanical Ventilator 95 03/31/19 00:00 Mechanical Ventilator 03/30/19 23:30 118 37 98 Mechanical Ventilator 90 120 42 90 03/30/19 23:00 29 Mechanical Ventilator 95 03/30/19 23:00 119 29 123/95 96 Mechanical Ventilator 95 03/30/19 22:30 33 Mechanical Ventilator 95 03/30/19 22:15 33 Mechanical Ventilator 95 03/30/19 22:00 115 29 115/89 99 Mechanical Ventilator 95 03/30/19 22:00 29 Mechanical Ventilator 95 03/30/19 21:30 109 34 85 03/30/19 21:00 33 Mechanical Ventilator 85 03/30/19 21:00 112 33 103/64 89 Mechanical Ventilator 85 03/30/19 20:33 33 Mechanical Ventilator 85 03/30/19 20:00 98.6 116 35 104/67 91 Mechanical Ventilator 85 03/30/19 20:00 Mechanical Ventilator 03/30/19 20:00 85 03/30/19 20:00 35 Mechanical Ventilator 85 03/30/19 19:30 116 03/30/19 19:30 122 37 85 03/30/19 19:00 34 Mechanical Ventilator 85 03/30/19 19:00 115 34 106/63 90 Mechanical Ventilator 85 Accucheck: 91 Critical Care - Subjective ROS Limited/Unobtainable: No Vent Support Breath Rate: 26 Vent Support Mode: AC Vent Tidal Volume: 450 Sputum Amount: Small PEEP: 12.0 PIP: 29 Tube Feeding Amount: 20 I&O: Intake and Output 03/30/19 03/31/19 18:59 06:59 Intake Total 1056.433 ml 989.5 ml Output Total 905 ml 830 ml Balance 151.433 ml 159.5 ml Free Water 100 ml 50 ml IV Total 696.433 ml 739.5 ml Tube Feeding 260 ml 200 ml Output Urine Total 905 ml 830 ml # Bowel Movements 2 ET-Tube: 7.5 ET Position: 23 Julio Rodrigez MD Mar 31, 2019 18:47
[2019-03-31] MEDS: Dyna-Hex 2% Top Sol 2oz TOPIC SCH (19:39)
[2019-04-01] VITALS (36 sets, daily range): BP systolic 121–162; BP diastolic 74–143
[2019-04-01] MEDS: NovoLOG Insulin Flexpen SUBQ SCH ×6 (00:41→21:00)
[2019-04-01] MEDS: Piperacillin/Tazobactam 2.25 GM in NS 55 ML IV SCH ×3 (01:32→19:02)
[2019-04-01] MEDS: Ipratropium 0.02% Inh Soln 2.5ml UD HHN SCH ×4 (02:47→15:18)
[2019-04-01] MEDS: Calcium Gluconate 10% 1 GM in NS 110 ML IVPB SCH (05:42)
[2019-04-01] MEDS: Versed 50mg/D5W 100ml 100 ML IV PRN ×3 (06:18→23:35)
[2019-04-01 06:23] LABS: BASOPHILS % (AUTO) 0.7 % (0.0-2.0); EOSINOPHILS % (AUTO) 2.5 % (0.0-3.0); HEMATOCRIT 25.7 % (37.0-47.0); HEMOGLOBIN 8.7 G/DL (12.0-16.0); LYMPHOCYTES % (AUTO) 7.5 % (20.0-45.0); MEAN CORPUSCULAR VOLUME 91 FL (80-99); MONOCYTES % (AUTO) 6.7 % (1.0-10.0); NEUTROPHILS % (AUTO) 82.7 % (45.0-75.0); PLATELET COUNT 134 K/UL (150-450); RED BLOOD COUNT 2.83 M/UL (4.20-5.40); RED CELL DISTRIBUTION WIDTH 16.1 % (11.6-14.8); WHITE BLOOD COUNT 13.1 K/UL (4.8-10.8)
[2019-04-01 06:30] LABS: AMYLASE 17 U/L (25-115)
[2019-04-01 06:32] LABS: INR 1.2 (0.9-1.1)
[2019-04-01 06:41] LABS: ALANINE AMINOTRANSFERASE 732 U/L (12-78); ALBUMIN 1.8 G/DL (3.4-5.0); ALBUMIN/GLOBULIN RATIO 0.5 (1.0-2.7); ALKALINE PHOSPHATASE 721 U/L (46-116); ANION GAP 8 mmol/L (5-15); ASPARTATE AMINO TRANSFERASE 171 U/L (15-37); BILIRUBIN,TOTAL 1.5 MG/DL (0.2-1.0); BLOOD UREA NITROGEN 24 mg/dL (7-18); CALCIUM 8.5 MG/DL (8.5-10.1); CARBON DIOXIDE 27 MMOL/L (21-32); CHLORIDE 103 MMOL/L (98-107); CREATININE 3.3 MG/DL (0.55-1.30); PHOSPHORUS 2.8 MG/DL (2.5-4.9); POTASSIUM 2.9 MMOL/L (3.5-5.1); SODIUM 138 MMOL/L (136-145)
--- NOTE | 2019-04-01 08:48 | Nephrology Progress Note ---
Assessment/Plan Problem List: (1) Acute renal failure (ARF) (2) Respiratory failure (3) DKA (diabetic ketoacidoses) (4) LFT elevation (5) Electrolyte imbalance Assessment: Low Mag and Low Ca (6) Thrombocytopathia Assessment Acute respiratory failure Acute renal failure high LFTs, thrombocytopenia ? HUS ? 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 Ca and Mag IV Vit K Vit D Echo Hyperkinetic wall motion. Left ventricular ejection fraction estimated to be 55-60 %. Moderate left ventricular hypertrophy by 2D. Abd CT: Evidence of acute on chronic pancreatitis. No pseudocyst. Hepatomegaly with severe steatosis. Subjective ROS Limited/Unobtainable: Yes Objective Objective Last 24 Hour Vital Signs Date Time Temp Pulse Resp B/P (MAP) Pulse Ox O2 Delivery O2 Flow Rate FiO2 04/01/19 08:00 100.1 106 24 146/98 100 Mechanical Ventilator 90 04/01/19 08:00 Mechanical Ventilator 04/01/19 08:00 Mechanical Ventilator 04/01/19 08:00 90 04/01/19 07:00 101 26 134/89 100 Mechanical Ventilator 90 04/01/19 07:00 26 Mechanical Ventilator 90 04/01/19 06:42 104 26 100 Mechanical Ventilator 90 105 26 90 04/01/19 06:30 104 26 04/01/19 06:18 26 Mechanical Ventilator 90 04/01/19 06:00 108 13 130/84 100 Mechanical Ventilator 90 04/01/19 06:00 26 Mechanical Ventilator 90 04/01/19 05:30 107 26 141/89 100 Mechanical Ventilator 90 04/01/19 05:30 107 26 90 04/01/19 05:10 110 21 152/96 100 Mechanical Ventilator 90 04/01/19 05:00 106 15 150/100 100 Mechanical Ventilator 90 04/01/19 05:00 26 Mechanical Ventilator 90 04/01/19 04:45 30 Mechanical Ventilator 90 04/01/19 04:30 30 Mechanical Ventilator 90 04/01/19 04:00 90 04/01/19 04:00 26 Mechanical Ventilator 90 04/01/19 04:00 98.9 105 27 148/97 100 Mechanical Ventilator 90 04/01/19 04:00 Mechanical Ventilator 04/01/19 03:35 26 Mechanical Ventilator 90 04/01/19 03:20 28 Mechanical Ventilator 90 04/01/19 03:10 106 04/01/19 03:05 102 26 100 Mechanical Ventilator 90 105 26 90 04/01/19 03:00 26 Mechanical Ventilator 90 04/01/19 03:00 109 27 148/97 100 Mechanical Ventilator 90 04/01/19 02:00 26 Mechanical Ventilator 90 04/01/19 02:00 100 26 143/90 100 Mechanical Ventilator 90 04/01/19 01:30 105 28 90 04/01/19 01:00 26 Mechanical Ventilator 90 04/01/19 01:00 101 26 139/91 100 Mechanical Ventilator 90 04/01/19 00:00 90 04/01/19 00:00 98.7 95 26 128/83 98 Mechanical Ventilator 90 04/01/19 00:00 26 Mechanical Ventilator 90 04/01/19 00:00 Mechanical Ventilator 03/31/19 23:30 92 26 99 Mechanical Ventilator 90 94 26 90 03/31/19 23:18 95 03/31/19 23:00 100 26 125/81 100 Mechanical Ventilator 90 03/31/19 23:00 26 Mechanical Ventilator 90 03/31/19 22:00 26 Mechanical Ventilator 90 03/31/19 22:00 99 26 112/71 100 Mechanical Ventilator 90 03/31/19 21:30 99 26 90 03/31/19 21:00 26 Mechanical Ventilator 90 03/31/19 21:00 102 26 115/74 100 Mechanical Ventilator 90 03/31/19 20:00 98.8 107 28 121/78 100 Mechanical Ventilator 90 03/31/19 20:00 26 Mechanical Ventilator 90 03/31/19 20:00 Mechanical Ventilator 03/31/19 20:00 90 03/31/19 19:39 27 Mechanical Ventilator 90 03/31/19 19:30 105 29 100 Mechanical Ventilator 90 102 26 90 03/31/19 19:04 107 03/31/19 19:00 26 Mechanical Ventilator 90 03/31/19 19:00 106 24 110/77 100 Mechanical Ventilator 90 03/31/19 18:47 99.9 03/31/19 18:00 107 26 118/79 100 Mechanical Ventilator 90 03/31/19 17:00 106 25 124/82 100 Mechanical Ventilator 90 03/31/19 16:55 114 29 90 03/31/19 16:30 108 26 117/73 100 Mechanical Ventilator 90 03/31/19 16:00 Mechanical Ventilator 03/31/19 16:00 90 03/31/19 16:00 99.8 113 24 159/100 99 Mechanical Ventilator 90 03/31/19 16:00 111 03/31/19 15:05 111 25 126/90 100 Mechanical Ventilator 90 03/31/19 14:49 114 29 100 Mechanical Ventilator 90 106 26 90 03/31/19 14:30 114 32 128/82 100 Mechanical Ventilator 90 03/31/19 14:00 118 29 134/86 100 Mechanical Ventilator 90 03/31/19 13:30 119 29 133/79 100 Mechanical Ventilator 90 03/31/19 13:00 117 23 131/82 100 Mechanical Ventilator 90 03/31/19 12:38 120 35 90 03/31/19 12:00 Mechanical Ventilator 03/31/19 12:00 100.0 125 35 141/79 95 Mechanical Ventilator 90 03/31/19 12:00 90 03/31/19 12:00 126 03/31/19 11:15 128 38 100 Mechanical Ventilator 90 117 32 90 03/31/19 11:00 124 28 131/69 100 Mechanical Ventilator 90 03/31/19 10:00 131 36 133/79 97 Mechanical Ventilator 90 03/31/19 09:30 127 33 140/85 98 Mechanical Ventilator 90 03/31/19 09:00 129 35 135/77 96 Mechanical Ventilator 90 Intake and Output 03/31/19 04/01/19 19:00 07:00 Intake Total 901 ml 651.5 ml Output Total 2460 ml 450 ml Balance -1559 ml 201.5 ml Free Water 100 ml 50 ml IV Total 541 ml 421.5 ml Tube Feeding 200 ml 180 ml Other 60 ml Output Urine Total 460 ml 450 ml Hemodialysis UF 2000 ml Laboratory Tests 04/01/19 05:20: White Blood Count 13.1H, Red Blood Count 2.83L, Hemoglobin 8.7L, Hematocrit 25.7L, Mean Corpuscular Volume 91, Mean Corpuscular Hemoglobin 30.9, Mean Corpuscular Hemoglobin Concent 34.0, Red Cell Distribution Width 16.1H, Platelet Count 134L, Mean Platelet Volume 7.6, Neutrophils (%) (Auto) 82.7H, Lymphocytes (%) (Auto) 7.5L, Monocytes (%) (Auto) 6.7, Eosinophils (%) (Auto) 2.5, Basophils (%) (Auto) 0.7, Erythrocyte Sedimentation Rate 110H, Prothrombin Time 12.7H, Prothromb Time International Ratio 1.2H, Activated Partial Thromboplast Time 28, Sodium Level 138, Potassium Level 2.9L, Chloride Level 103 , Carbon Dioxide Level 27, Anion Gap 8, Blood Urea Nitrogen 24H, Creatinine 3.3H , Estimat Glomerular Filtration Rate 18.7, Glucose Level 128H, Uric Acid 3.7, Calcium Level 8.5, Phosphorus Level 2.8, Magnesium Level 2.0, Total Bilirubin 1.5H, Direct Bilirubin 1.0H, Gamma Glutamyl Transpeptidase 1079H, Aspartate Amino Transf (AST/SGOT) 171H, Alanine Aminotransferase (ALT/SGPT) 732H, Alkaline Phosphatase 721H, C-Reactive Protein, Quantitative 28.1H, Pro-B-Type Natriuretic Peptide 759H, Total Protein 5.5L, Albumin 1.8L, Globulin 3.7, Albumin/Globulin Ratio 0.5L, Amylase Level 17L, Lipase 19L Height (Feet): 5 Height (Inches): 2.00 Weight (Pounds): 189 General Appearance: no apparent distress EENT: other - vented Cardiovascular: tachycardia Respiratory/Chest: decreased breath sounds Abdomen: distended Amrit Lopez MD Apr 01, 2019 08:48
[2019-04-01] MEDS: CALCITRIOL 1 MCG/ML GT SCH (08:57)
[2019-04-01] MEDS: Vitamin D 1000 IU Tab GT SCH (08:58)
[2019-04-01] MEDS: Pantoprazole Inj IVP SCH ×2 (08:58→20:58)
--- NOTE | 2019-04-01 09:29 | General Progress Note ---
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>>> on hold for today for possible extubation DM control repeat LFTS>>>improving fu labs hepatitis panel stool ob positive ppi GI procedures on hold Subjective ROS Limited/Unobtainable: No Allergies: Coded Allergies: No Known Allergies (Unverified , 08/04/18) Objective Last 24 Hour Vital Signs Date Time Temp Pulse Resp B/P (MAP) Pulse Ox O2 Delivery O2 Flow Rate FiO2 04/01/19 08:45 108 26 65 04/01/19 08:00 100.1 106 24 146/98 100 Mechanical Ventilator 90 04/01/19 08:00 Mechanical Ventilator 04/01/19 08:00 Mechanical Ventilator 04/01/19 08:00 90 04/01/19 07:00 101 26 134/89 100 Mechanical Ventilator 90 04/01/19 07:00 26 Mechanical Ventilator 90 04/01/19 06:42 104 26 100 Mechanical Ventilator 90 105 26 90 04/01/19 06:30 104 26 04/01/19 06:18 26 Mechanical Ventilator 90 04/01/19 06:00 108 13 130/84 100 Mechanical Ventilator 90 04/01/19 06:00 26 Mechanical Ventilator 90 04/01/19 05:30 107 26 141/89 100 Mechanical Ventilator 90 04/01/19 05:30 107 26 90 04/01/19 05:10 110 21 152/96 100 Mechanical Ventilator 90 04/01/19 05:00 106 15 150/100 100 Mechanical Ventilator 90 04/01/19 05:00 26 Mechanical Ventilator 90 04/01/19 04:45 30 Mechanical Ventilator 90 04/01/19 04:30 30 Mechanical Ventilator 90 04/01/19 04:00 90 04/01/19 04:00 26 Mechanical Ventilator 90 04/01/19 04:00 98.9 105 27 148/97 100 Mechanical Ventilator 90 04/01/19 04:00 Mechanical Ventilator 04/01/19 03:35 26 Mechanical Ventilator 90 04/01/19 03:20 28 Mechanical Ventilator 90 04/01/19 03:10 106 04/01/19 03:05 102 26 100 Mechanical Ventilator 90 105 26 90 04/01/19 03:00 26 Mechanical Ventilator 90 04/01/19 03:00 109 27 148/97 100 Mechanical Ventilator 90 04/01/19 02:00 26 Mechanical Ventilator 90 04/01/19 02:00 100 26 143/90 100 Mechanical Ventilator 90 04/01/19 01:30 105 28 90 04/01/19 01:00 26 Mechanical Ventilator 90 04/01/19 01:00 101 26 139/91 100 Mechanical Ventilator 90 04/01/19 00:00 90 04/01/19 00:00 98.7 95 26 128/83 98 Mechanical Ventilator 90 04/01/19 00:00 26 Mechanical Ventilator 90 04/01/19 00:00 Mechanical Ventilator 03/31/19 23:30 92 26 99 Mechanical Ventilator 90 94 26 90 03/31/19 23:18 95 03/31/19 23:00 100 26 125/81 100 Mechanical Ventilator 90 03/31/19 23:00 26 Mechanical Ventilator 90 03/31/19 22:00 26 Mechanical Ventilator 90 03/31/19 22:00 99 26 112/71 100 Mechanical Ventilator 90 03/31/19 21:30 99 26 90 03/31/19 21:00 26 Mechanical Ventilator 90 03/31/19 21:00 102 26 115/74 100 Mechanical Ventilator 90 03/31/19 20:00 98.8 107 28 121/78 100 Mechanical Ventilator 90 03/31/19 20:00 26 Mechanical Ventilator 90 03/31/19 20:00 Mechanical Ventilator 03/31/19 20:00 90 03/31/19 19:39 27 Mechanical Ventilator 90 03/31/19 19:30 105 29 100 Mechanical Ventilator 90 102 26 90 03/31/19 19:04 107 03/31/19 19:00 26 Mechanical Ventilator 90 03/31/19 19:00 106 24 110/77 100 Mechanical Ventilator 90 03/31/19 18:47 99.9 03/31/19 18:00 107 26 118/79 100 Mechanical Ventilator 90 03/31/19 17:00 106 25 124/82 100 Mechanical Ventilator 90 03/31/19 16:55 114 29 90 03/31/19 16:30 108 26 117/73 100 Mechanical Ventilator 90 03/31/19 16:00 Mechanical Ventilator 03/31/19 16:00 90 03/31/19 16:00 99.8 113 24 159/100 99 Mechanical Ventilator 90 03/31/19 16:00 111 03/31/19 15:05 111 25 126/90 100 Mechanical Ventilator 90 03/31/19 14:49 114 29 100 Mechanical Ventilator 90 106 26 90 03/31/19 14:30 114 32 128/82 100 Mechanical Ventilator 90 03/31/19 14:00 118 29 134/86 100 Mechanical Ventilator 90 03/31/19 13:30 119 29 133/79 100 Mechanical Ventilator 90 03/31/19 13:00 117 23 131/82 100 Mechanical Ventilator 90 03/31/19 12:38 120 35 90 03/31/19 12:00 Mechanical Ventilator 03/31/19 12:00 100.0 125 35 141/79 95 Mechanical Ventilator 90 03/31/19 12:00 90 03/31/19 12:00 126 03/31/19 11:15 128 38 100 Mechanical Ventilator 90 117 32 90 03/31/19 11:00 124 28 131/69 100 Mechanical Ventilator 90 03/31/19 10:00 131 36 133/79 97 Mechanical Ventilator 90 03/31/19 09:30 127 33 140/85 98 Mechanical Ventilator 90 Intake and Output 03/31/19 04/01/19 19:00 07:00 Intake Total 901 ml 651.5 ml Output Total 2460 ml 450 ml Balance -1559 ml 201.5 ml Free Water 100 ml 50 ml IV Total 541 ml 421.5 ml Tube Feeding 200 ml 180 ml Other 60 ml Output Urine Total 460 ml 450 ml Hemodialysis UF 2000 ml Laboratory Tests 04/01/19 05:20: White Blood Count 13.1H, Red Blood Count 2.83L, Hemoglobin 8.7L, Hematocrit 25.7L, Mean Corpuscular Volume 91, Mean Corpuscular Hemoglobin 30.9, Mean Corpuscular Hemoglobin Concent 34.0, Red Cell Distribution Width 16.1H, Platelet Count 134L, Mean Platelet Volume 7.6, Neutrophils (%) (Auto) 82.7H, Lymphocytes (%) (Auto) 7.5L, Monocytes (%) (Auto) 6.7, Eosinophils (%) (Auto) 2.5, Basophils (%) (Auto) 0.7, Erythrocyte Sedimentation Rate 110H, Prothrombin Time 12.7H, Prothromb Time International Ratio 1.2H, Activated Partial Thromboplast Time 28, Sodium Level 138, Potassium Level 2.9L, Chloride Level 103 , Carbon Dioxide Level 27, Anion Gap 8, Blood Urea Nitrogen 24H, Creatinine 3.3H , Estimat Glomerular Filtration Rate 18.7, Glucose Level 128H, Uric Acid 3.7, Calcium Level 8.5, Phosphorus Level 2.8, Magnesium Level 2.0, Total Bilirubin 1.5H, Direct Bilirubin 1.0H, Gamma Glutamyl Transpeptidase 1079H, Aspartate Amino Transf (AST/SGOT) 171H, Alanine Aminotransferase (ALT/SGPT) 732H, Alkaline Phosphatase 721H, C-Reactive Protein, Quantitative 28.1H, Pro-B-Type Natriuretic Peptide 759H, Total Protein 5.5L, Albumin 1.8L, Globulin 3.7, Albumin/Globulin Ratio 0.5L, Amylase Level 17L, Lipase 19L 04/01/19 08:40: Arterial Blood pH 7.428, Arterial Blood Partial Pressure CO2 41.1, Arterial Blood Partial Pressure O2 270.2H, Arterial Blood HCO3 26.5H, Arterial Blood Oxygen Saturation 98.8, Arterial Blood Base Excess 2.0, Amarjit Test Positive Height (Feet): 5 Height (Inches): 2.00 Weight (Pounds): 189 General Appearance: lethargic EENT: normal ENT inspection Neck: supple Cardiovascular: normal rate Respiratory/Chest: decreased breath sounds Abdomen: normal bowel sounds, non tender, soft Extremities: non-tender Monty Jaimes MD Apr 01, 2019 09:29
[2019-04-01] MEDS: Thiamine HCl 100 MG in NS 55 ML IVPB SCH (09:35)
[2019-04-01] MEDS: Levemir Flexpen SUBQ SCH ×2 (09:38→19:06)
--- NOTE | 2019-04-01 09:44 | Diagnostic Imaging Report ---
Indication: Shortness of breath Technique: One view of the chest Comparison: Post dialysis catheter placement radiograph dated 03/29/2019 Findings: Right jugular dialysis catheter again demonstrated. Stable satisfactory positions of endotracheal and nasogastric tubes. Bilateral interstitial and airspace edema persists, unchanged. There is increased obscuration of right hemidiaphragm which may indicate developing pleural fluid Impression: Possible new or increased right pleural effusion. Otherwise unchanged over 3 days as described, including bilateral pulmonary interstitial and airspace edema versus infiltrates
--- NOTE | 2019-04-01 11:05 | General Progress Note ---
Assessment/Plan Problem List: (1) DKA (diabetic ketoacidoses) ICD Codes: E11.10 - Type 2 diabetes mellitus with ketoacidosis without coma SNOMED: 075308923, [id number] Qualifiers: Qualified Codes: E13.10 - Other specified diabetes mellitus with ketoacidosis without coma (2) Diabetes mellitus out of control ICD Codes: E11.65 - Type 2 diabetes mellitus with hyperglycemia SNOMED: 81706018, [id number] (3) Acute on chronic pancreatitis ICD Codes: K85.90 - Acute pancreatitis without necrosis or infection, unspecified; K86.1 - Other chronic pancreatitis SNOMED: 216347031, [id number] (4) Respiratory failure ICD Codes: J96.90 - Respiratory failure, unspecified, unspecified whether with hypoxia or hypercapnia SNOMED: 915902672 Status: unchanged Assessment/Plan: DKA resolved continue Levemir 6 units bid continue NISS every 4 hours Subjective ROS Limited/Unobtainable: Yes Allergies: Coded Allergies: No Known Allergies (Unverified , 08/04/18) Subjective events noted Item Value Date Time Bedside Blood Glucose 102 mg/dl 04/01/19 0938 Bedside Blood Glucose 133 mg/dl H 04/01/19 0445 Bedside Blood Glucose 102 mg/dl 04/01/19 0041 Bedside Blood Glucose 95 mg/dl 03/31/19 2044 Bedside Blood Glucose 91 mg/dl 03/31/19 1800 Bedside Blood Glucose 94 mg/dl 03/31/19 1300 Bedside Blood Glucose 116 mg/dl 03/31/19 0940 Objective Last 24 Hour Vital Signs Date Time Temp Pulse Resp B/P (MAP) Pulse Ox O2 Delivery O2 Flow Rate FiO2 04/01/19 10:36 115 26 100 Mechanical Ventilator 60 115 26 60 04/01/19 08:45 108 26 65 04/01/19 08:00 100.1 106 24 146/98 100 Mechanical Ventilator 90 04/01/19 08:00 Mechanical Ventilator 04/01/19 08:00 Mechanical Ventilator 04/01/19 08:00 90 04/01/19 07:00 101 26 134/89 100 Mechanical Ventilator 90 04/01/19 07:00 26 Mechanical Ventilator 90 04/01/19 06:42 104 26 100 Mechanical Ventilator 90 105 26 90 04/01/19 06:30 104 26 04/01/19 06:18 26 Mechanical Ventilator 90 04/01/19 06:00 108 13 130/84 100 Mechanical Ventilator 90 04/01/19 06:00 26 Mechanical Ventilator 90 04/01/19 05:30 107 26 141/89 100 Mechanical Ventilator 90 04/01/19 05:30 107 26 90 04/01/19 05:10 110 21 152/96 100 Mechanical Ventilator 90 04/01/19 05:00 106 15 150/100 100 Mechanical Ventilator 90 04/01/19 05:00 26 Mechanical Ventilator 90 04/01/19 04:45 30 Mechanical Ventilator 90 04/01/19 04:30 30 Mechanical Ventilator 90 04/01/19 04:00 90 04/01/19 04:00 26 Mechanical Ventilator 90 04/01/19 04:00 98.9 105 27 148/97 100 Mechanical Ventilator 90 04/01/19 04:00 Mechanical Ventilator 04/01/19 03:35 26 Mechanical Ventilator 90 04/01/19 03:20 28 Mechanical Ventilator 90 04/01/19 03:10 106 04/01/19 03:05 102 26 100 Mechanical Ventilator 90 105 26 90 04/01/19 03:00 26 Mechanical Ventilator 90 04/01/19 03:00 109 27 148/97 100 Mechanical Ventilator 90 04/01/19 02:00 26 Mechanical Ventilator 90 04/01/19 02:00 100 26 143/90 100 Mechanical Ventilator 90 04/01/19 01:30 105 28 90 04/01/19 01:00 26 Mechanical Ventilator 90 04/01/19 01:00 101 26 139/91 100 Mechanical Ventilator 90 04/01/19 00:00 90 04/01/19 00:00 98.7 95 26 128/83 98 Mechanical Ventilator 90 04/01/19 00:00 26 Mechanical Ventilator 90 04/01/19 00:00 Mechanical Ventilator 03/31/19 23:30 92 26 99 Mechanical Ventilator 90 94 26 90 03/31/19 23:18 95 03/31/19 23:00 100 26 125/81 100 Mechanical Ventilator 90 03/31/19 23:00 26 Mechanical Ventilator 90 03/31/19 22:00 26 Mechanical Ventilator 90 03/31/19 22:00 99 26 112/71 100 Mechanical Ventilator 90 03/31/19 21:30 99 26 90 03/31/19 21:00 26 Mechanical Ventilator 90 03/31/19 21:00 102 26 115/74 100 Mechanical Ventilator 90 03/31/19 20:00 98.8 107 28 121/78 100 Mechanical Ventilator 90 03/31/19 20:00 26 Mechanical Ventilator 90 03/31/19 20:00 Mechanical Ventilator 03/31/19 20:00 90 03/31/19 19:39 27 Mechanical Ventilator 90 03/31/19 19:30 105 29 100 Mechanical Ventilator 90 102 26 90 03/31/19 19:04 107 03/31/19 19:00 26 Mechanical Ventilator 90 03/31/19 19:00 106 24 110/77 100 Mechanical Ventilator 90 03/31/19 18:47 99.9 03/31/19 18:00 107 26 118/79 100 Mechanical Ventilator 90 03/31/19 17:00 106 25 124/82 100 Mechanical Ventilator 90 03/31/19 16:55 114 29 90 03/31/19 16:30 108 26 117/73 100 Mechanical Ventilator 90 03/31/19 16:00 Mechanical Ventilator 03/31/19 16:00 90 03/31/19 16:00 99.8 113 24 159/100 99 Mechanical Ventilator 90 03/31/19 16:00 111 03/31/19 15:05 111 25 126/90 100 Mechanical Ventilator 90 03/31/19 14:49 114 29 100 Mechanical Ventilator 90 106 26 90 03/31/19 14:30 114 32 128/82 100 Mechanical Ventilator 90 03/31/19 14:00 118 29 134/86 100 Mechanical Ventilator 90 03/31/19 13:30 119 29 133/79 100 Mechanical Ventilator 90 03/31/19 13:00 117 23 131/82 100 Mechanical Ventilator 90 03/31/19 12:38 120 35 90 03/31/19 12:00 Mechanical Ventilator 03/31/19 12:00 100.0 125 35 141/79 95 Mechanical Ventilator 90 03/31/19 12:00 90 03/31/19 12:00 126 03/31/19 11:15 128 38 100 Mechanical Ventilator 90 117 32 90 Intake and Output 03/31/19 04/01/19 19:00 07:00 Intake Total 901 ml 651.5 ml Output Total 2460 ml 450 ml Balance -1559 ml 201.5 ml Free Water 100 ml 50 ml IV Total 541 ml 421.5 ml Tube Feeding 200 ml 180 ml Other 60 ml Output Urine Total 460 ml 450 ml Hemodialysis UF 2000 ml Laboratory Tests 04/01/19 05:20: White Blood Count 13.1H, Red Blood Count 2.83L, Hemoglobin 8.7L, Hematocrit 25.7L, Mean Corpuscular Volume 91, Mean Corpuscular Hemoglobin 30.9, Mean Corpuscular Hemoglobin Concent 34.0, Red Cell Distribution Width 16.1H, Platelet Count 134L, Mean Platelet Volume 7.6, Neutrophils (%) (Auto) 82.7H, Lymphocytes (%) (Auto) 7.5L, Monocytes (%) (Auto) 6.7, Eosinophils (%) (Auto) 2.5, Basophils (%) (Auto) 0.7, Erythrocyte Sedimentation Rate 110H, Prothrombin Time 12.7H, Prothromb Time International Ratio 1.2H, Activated Partial Thromboplast Time 28, Sodium Level 138, Potassium Level 2.9L, Chloride Level 103 , Carbon Dioxide Level 27, Anion Gap 8, Blood Urea Nitrogen 24H, Creatinine 3.3H , Estimat Glomerular Filtration Rate 18.7, Glucose Level 128H, Uric Acid 3.7, Calcium Level 8.5, Phosphorus Level 2.8, Magnesium Level 2.0, Total Bilirubin 1.5H, Direct Bilirubin 1.0H, Gamma Glutamyl Transpeptidase 1079H, Aspartate Amino Transf (AST/SGOT) 171H, Alanine Aminotransferase (ALT/SGPT) 732H, Alkaline Phosphatase 721H, C-Reactive Protein, Quantitative 28.1H, Pro-B-Type Natriuretic Peptide 759H, Total Protein 5.5L, Albumin 1.8L, Globulin 3.7, Albumin/Globulin Ratio 0.5L, Amylase Level 17L, Lipase 19L 04/01/19 08:40: Arterial Blood pH 7.428, Arterial Blood Partial Pressure CO2 41.1, Arterial Blood Partial Pressure O2 270.2H, Arterial Blood HCO3 26.5H, Arterial Blood Oxygen Saturation 98.8, Arterial Blood Base Excess 2.0, Amarjit Test Positive Height (Feet): 5 Height (Inches): 2.00 Weight (Pounds): 189 General Appearance: lethargic Neck: normal alignment Respiratory/Chest: decreased breath sounds Abdomen: normal bowel sounds Objective Current Medications Medications (Trade) Dose Ordered Sig/Greta Route PRN Reason Start Time Stop Time Status Last Admin Dose Admin Acetaminophen (Tylenol) 650 mg Q4H PRN GT T>100.5 03/30/19 09:45 04/29/19 09:44 03/31/19 18:17 Calcitriol (Rocatrol) 0.5 mcg DAILY GT 04/01/19 09:00 05/01/19 08:59 04/01/19 08:57 Chlorhexidine Gluconate (Hetal-Hex 2%) 1 applic DAILY@2000 TOPIC 03/27/19 20:00 04/26/19 19:59 03/31/19 19:39 Dextrose (Dextrose 50%) 25 ml Q30M PRN IV Hypoglycemia 03/28/19 11:30 04/27/19 11:29 Dextrose (Dextrose 50%) 50 ml Q30M PRN IV Hypoglycemia 03/28/19 11:30 04/27/19 11:29 Epoetin John (Epoetin John(ESRD on dialysis)) 10,000 unit THU-THU-THU SUBQ 03/30/19 21:00 04/29/19 20:59 03/30/19 20:32 Guaifenesin (Robitussin) 200 mg Q4H PRN GT For Cough 03/30/19 09:45 04/26/19 11:14 Insulin Aspart (NovoLOG) EVERY 4 HOURS SUBQ 03/28/19 17:00 04/27/19 11:59 04/01/19 04:45 Insulin Detemir (Levemir) 6 units BID SUBQ 03/30/19 09:00 04/27/19 11:59 04/01/19 09:38 Iopamidol (Isovue-300 100ml) 100 ml NOW PRN INJ Radiology Procedure 03/26/19 17:00 Ipratropium [place] (Atrovent) 500 mcg Q4HRT HHN 03/27/19 19:00 04/01/19 18:59 04/01/19 10:38 Lorazepam (Ativan 2mg/ml 1ml) 1 mg Q2H PRN IV agitation 03/27/19 18:00 04/02/19 19:59 03/30/19 22:48 Midazolam HCl 100 ml @ 0 mls/hr Q24H PRN IV Agitation 03/28/19 00:15 04/04/19 00:14 04/01/19 06:18 Morphine Sulfate (Morphine Sulfate) 2 mg Q2H PRN IVP Severe Pain (Pain Scale 7-10) 03/28/19 20:15 04/04/19 20:14 03/28/19 23:05 Nitroglycerin (Ntg) 0.4 mg Q5MIN X 3 DOSES PRN SL Prn Chest Pain 03/26/19 20:15 04/25/19 20:14 Ondansetron HCl (Zofran) 4 mg Q6H PRN IVP Nausea & Vomiting 03/26/19 20:00 04/25/19 19:59 03/30/19 06:20 Pantoprazole (Protonix) 40 mg EVERY 12 HOURS IVP 03/30/19 09:00 04/29/19 08:59 04/01/19 08:58 Piperacillin Sod/ Tazobactam Sod 2.25 gm/Sodium Chloride 55 ml @ 110 mls/hr Q8HR@0200,1000,1800 IV 03/31/19 10:00 04/06/19 17:59 04/01/19 09:34 Polyethylene Glycol (Miralax) 17 gm DAILYPRN PRN ORAL Constipation 03/26/19 20:00 04/25/19 19:59 Sodium Bicarbonate 150 ml/Dextrose 1,150 ml @ 30 mls/hr Q24H IV 03/29/19 13:30 04/28/19 13:29 Thiamine HCl 100 mg/Sodium Chloride 56 ml @ 112 mls/hr DAILY IVPB 03/29/19 09:00 04/28/19 08:59 04/01/19 09:35 Vancomycin HCl (Vanco rx to dose) 1 ea DAILY PRN MISC . 03/28/19 09:15 04/27/19 09:14 Vitamin D (Vitamin D) 2,000 intlu DAILY GT 04/01/19 09:00 04/29/19 09:59 04/01/19 08:58 Joseph Saleem MD Apr 01, 2019 11:05
[2019-04-01] MEDS: Sodium Bicarbonate 150 ML in D5W 1000ml 1,000 ML IV SCH (12:23)
--- NOTE | 2019-04-01 17:11 | Internal Med Progress Note ---
Subjective Physician Name Shree Mcintyre Attending Physician Shree Mcintyre MD Current Medications Medications (Trade) Dose Ordered Sig/Greta Route PRN Reason Start Time Stop Time Status Last Admin Dose Admin Acetaminophen (Tylenol) 650 mg Q4H PRN GT T>100.5 03/30/19 09:45 04/29/19 09:44 03/31/19 18:17 Calcitriol (Rocatrol) 0.5 mcg DAILY GT 04/01/19 09:00 05/01/19 08:59 04/01/19 08:57 Chlorhexidine Gluconate (Hetal-Hex 2%) 1 applic DAILY@2000 TOPIC 03/27/19 20:00 04/26/19 19:59 03/31/19 19:39 Dextrose (Dextrose 50%) 25 ml Q30M PRN IV Hypoglycemia 03/28/19 11:30 04/27/19 11:29 Dextrose (Dextrose 50%) 50 ml Q30M PRN IV Hypoglycemia 03/28/19 11:30 04/27/19 11:29 Epoetin John (Epoetin John(ESRD on dialysis)) 10,000 unit THU-THU-THU SUBQ 03/30/19 21:00 04/29/19 20:59 03/30/19 20:32 Guaifenesin (Robitussin) 200 mg Q4H PRN GT For Cough 03/30/19 09:45 04/26/19 11:14 Insulin Aspart (NovoLOG) EVERY 4 HOURS SUBQ 03/28/19 17:00 04/27/19 11:59 04/01/19 04:45 Insulin Detemir (Levemir) 6 units BID SUBQ 03/30/19 09:00 04/27/19 11:59 04/01/19 09:38 Iopamidol (Isovue-300 100ml) 100 ml NOW PRN INJ Radiology Procedure 03/26/19 17:00 Ipratropium [place] (Atrovent) 500 mcg Q4HRT HHN 03/27/19 19:00 04/01/19 18:59 04/01/19 15:18 Lorazepam (Ativan 2mg/ml 1ml) 1 mg Q2H PRN IV agitation 03/27/19 18:00 04/02/19 19:59 03/30/19 22:48 Midazolam HCl 100 ml @ 0 mls/hr Q24H PRN IV Agitation 03/28/19 00:15 04/04/19 00:14 04/01/19 16:32 Morphine Sulfate (Morphine Sulfate) 2 mg Q2H PRN IVP Severe Pain (Pain Scale 7-10) 03/28/19 20:15 04/04/19 20:14 03/28/19 23:05 Nitroglycerin (Ntg) 0.4 mg Q5MIN X 3 DOSES PRN SL Prn Chest Pain 03/26/19 20:15 04/25/19 20:14 Ondansetron HCl (Zofran) 4 mg Q6H PRN IVP Nausea & Vomiting 03/26/19 20:00 04/25/19 19:59 03/30/19 06:20 Pantoprazole (Protonix) 40 mg EVERY 12 HOURS IVP 03/30/19 09:00 04/29/19 08:59 04/01/19 08:58 Piperacillin Sod/ Tazobactam Sod 2.25 gm/Sodium Chloride 55 ml @ 110 mls/hr Q8HR@0200,1000,1800 IV 03/31/19 10:00 04/06/19 17:59 04/01/19 09:34 Polyethylene Glycol (Miralax) 17 gm DAILYPRN PRN ORAL Constipation 03/26/19 20:00 04/25/19 19:59 Sodium Bicarbonate 150 ml/Dextrose 1,150 ml @ 30 mls/hr Q24H IV 03/29/19 13:30 04/28/19 13:29 Thiamine HCl 100 mg/Sodium Chloride 56 ml @ 112 mls/hr DAILY IVPB 03/29/19 09:00 04/28/19 08:59 04/01/19 09:35 Vancomycin HCl (Vanco rx to dose) 1 ea DAILY PRN MISC . 03/28/19 09:15 04/27/19 09:14 Vitamin D (Vitamin D) 2,000 intlu DAILY GT 04/01/19 09:00 04/29/19 09:59 04/01/19 08:58 Allergies: Coded Allergies: No Known Allergies (Unverified , 08/04/18) Subjective in ICU, Intubated, sedated. Objective Last Vital Signs Date Time Temp Pulse Resp B/P (MAP) Pulse Ox O2 Delivery O2 Flow Rate FiO2 04/01/19 16:32 Mechanical Ventilator 04/01/19 15:57 40 04/01/19 15:30 94 26 130/87 100 04/01/19 12:00 99.0 03/27/19 15:00 4.0 Laboratory Tests Test 04/01/19 05:20 04/01/19 08:40 White Blood Count 13.1 K/UL (4.8-10.8) H Red Blood Count 2.83 M/UL (4.20-5.40) L Hemoglobin 8.7 G/DL (12.0-16.0) L Hematocrit 25.7 % (37.0-47.0) L Mean Corpuscular Volume 91 FL (80-99) Mean Corpuscular Hemoglobin 30.9 PG (27.0-31.0) Mean Corpuscular Hemoglobin Concent 34.0 G/DL (32.0-36.0) Red Cell Distribution Width 16.1 % (11.6-14.8) H Platelet Count 134 K/UL (150-450) L Mean Platelet Volume 7.6 FL (6.5-10.1) Neutrophils (%) (Auto) 82.7 % (45.0-75.0) H Lymphocytes (%) (Auto) 7.5 % (20.0-45.0) L Monocytes (%) (Auto) 6.7 % (1.0-10.0) Eosinophils (%) (Auto) 2.5 % (0.0-3.0) Basophils (%) (Auto) 0.7 % (0.0-2.0) Erythrocyte Sedimentation Rate 110 MM/HR (0-20) H Prothrombin Time 12.7 SEC (9.30-11.50) H Prothromb Time International Ratio 1.2 (0.9-1.1) H Activated Partial Thromboplast Time 28 SEC (23-33) Sodium Level 138 MMOL/L (136-145) Potassium Level 2.9 MMOL/L (3.5-5.1) L Chloride Level 103 MMOL/L (98-107) Carbon Dioxide Level 27 MMOL/L (21-32) Anion Gap 8 mmol/L (5-15) Blood Urea Nitrogen 24 mg/dL (7-18) H Creatinine 3.3 MG/DL (0.55-1.30) H Estimat Glomerular Filtration Rate 18.7 mL/min (>60) Glucose Level 128 MG/DL (74-106) H Uric Acid 3.7 MG/DL (2.6-7.2) Calcium Level 8.5 MG/DL (8.5-10.1) Phosphorus Level 2.8 MG/DL (2.5-4.9) Magnesium Level 2.0 MG/DL (1.8-2.4) Total Bilirubin 1.5 MG/DL (0.2-1.0) H Direct Bilirubin 1.0 MG/DL (0.0-0.3) H Gamma Glutamyl Transpeptidase 1079 U/L (5-85) H Aspartate Amino Transf (AST/SGOT) 171 U/L (15-37) H Alanine Aminotransferase (ALT/SGPT) 732 U/L (12-78) H Alkaline Phosphatase 721 U/L (46-116) H C-Reactive Protein, Quantitative 28.1 mg/dL (0.00-0.90) H Pro-B-Type Natriuretic Peptide 759 pg/mL (0-125) H Total Protein 5.5 G/DL (6.4-8.2) L Albumin 1.8 G/DL (3.4-5.0) L Globulin 3.7 g/dL Albumin/Globulin Ratio 0.5 (1.0-2.7) L Amylase Level 17 U/L (25-115) L Lipase 19 U/L (73-393) L Arterial Blood pH 7.428 (7.350-7.450) Arterial Blood Partial Pressure CO2 41.1 mmHg (35.0-45.0) Arterial Blood Partial Pressure O2 270.2 mmHg (75.0-100.0) H Arterial Blood HCO3 26.5 mmol/L (22.0-26.0) H Arterial Blood Oxygen Saturation 98.8 % (95-100) Arterial Blood Base Excess 2.0 (-2-2) Amarjit Test Positive Intake and Output 03/31/19 04/01/19 19:00 07:00 Intake Total 901 ml 651.5 ml Output Total 2460 ml 450 ml Balance -1559 ml 201.5 ml Free Water 100 ml 50 ml IV Total 541 ml 421.5 ml Tube Feeding 200 ml 180 ml Other 60 ml Output Urine Total 460 ml 450 ml Hemodialysis UF 2000 ml Objective General: Intubated, sedated. HEENT: NCAT, sclera anicteric, PERRL, ET Tube, NG Tube. Neck: Supple, Right IJ Dialysis cath. Lungs: Mechanical breath sound, decrease air at bases, no Wheeze or Rales. Heart: Regular rate and rhythm, normal S1/S2, no murmurs. Abdomen: soft, nontender, nondistended. Normoactive bowel sounds, obesity, Right femoral TLC. : Hoffmann cath Extremities: No Cyanosis , clubbing or edema. Neuro: sedated but Able to move all extremities Skin: warm, no rash. Assessment/Plan Assessment/Plan 1. Abdominal pain. 2. Acute on chronic pancreatitis. 3. Diabetic ketoacidosis. 4. Hyperglycemia. 5. Acute Renal failure. 6. Diabetes type 2. 7. Hypertension. 8. Ventral hernia. 9. ARDs/bilateral infiltrates/Acute Respiratory failure 10. Elevated liver funct tests 11. Thrombocytopenia=improving TREATMENT: 1. Abdominal pain/acute pancreatitis. A Gastroenterology consultation has been obtained with Dr. Monty Jaimes. We will follow recommendations of Gastroenterology. The patient is currently NPO. 2. Diabetic ketoacidosis/hyperglycemia. An Endocrinology consultation= Dr. Joseph Saleem. The patient has been placed on an aspart insulin sliding scale and levemir. We will follow recommendations of Endocrinology. 3. Renal failure. A Nephrology consultation has been obtained with Dr. Lopez. Hemodialysis 03/31/19 4. Hypertension. Continue amlodipine as above. 5. Ventral hernia. 6. Mechanical vent per pulmonary=Balfe 7. ABX=zosyn and Shree Montesinos MD Apr 01, 2019 17:11
--- NOTE | 2019-04-01 17:41 | Pulmonolgy Critical Care Note ---
Critical Care - Asmt/Plan Assessment/Plan: Pulmonary Critical Care Progress Note HPI Patient is a 43-year-old woman with past history of Diabetes, Hypertension, Chronic Obstructive Pulmonary Disease, admitted with Acute on Chronic Pancreatitis, elevated Liver Functions, Thrombocytopenia. Had c/o abdominal pain , nausea and vomiting, shortness of breath, coughing. She has a history of pancreatitis, noted to have features of Pancreatitis as well as azotemia, elevated liver function tests. She has history of multiple hernia operations, last in May 2018. No fevers or chills. Denies chest pain. No other aggravating relieving factors. Denies any other associated symptoms. Patient noted to be in Diabetic Ketoacidosis on admission - remains on Insulin gtt, Metabolic acidosis, ARDS/fluid overload, requiring intubation and mechanical ventilation, Worsening Acute Renal Failure, s/p Hemodialysis Improving PEEP/FIO2 Allergies: No Known Allergies Past Medical History: Diabetes, Hypertension, Chronic Obstructive Pulmonary Disease, Pancreatitis Physical Exam Vital Signs Noted General Appearance: sedated on the ventilator Head: normocephalic, atraumatic Eyes: bilateral eye normal inspection, bilateral PERRL ENT: moist mm, ETT Neck: no LN, no masses Respiratory: bilateral rhonchi, BS equal bilaterally Cardiovascular: HS1, HS2 normal, moderate edema, tachycardia Gastrointestinal: normal bowel sounds, soft, non-distended, tenderness - epigastric, hernia - ventral Musculoskeletal: well perfused, moving all limbs Neurologic: no seizures, no focal signs Impression: Pneumonia vs ARDS Respiratory Failure with high FIO2 and PEEP requirements, remains in positive fluid balance despite diuresis Acute on Chronic Pancreatitis Hypocalcemia sp replacement Hypomagnesemia s/p replacement Reduced Albumin level Worsening Acute Renal Failurefor HD Elevated Liver Function Tests Significant previous Alcohol abuse per her partner Thrombocytopenia GI bleed - on Protonix gtt Diabetic ketoacidoses Severe metabolic acidosis H/o Hypertension H/o Chronic Obstructive Pulmonary Disease, H/o Multiple Previous Hernia Surgeries Plan ACVC, Vt 450,RR 24, adjust PEEP 10, adjust FIO2 - wean for [id number]% CXR noted Dialysis per renal, still making someurine Monitor labs, Repeat ABG PRN HHN Broad spectrum antibiotics/ID PRN Sedation PPX: SCD/Protonix Insulin gtt DW PMD Labs noted Echo: Preserved LV function EKG: Rate: tachycardiac Rhythm: NSR ST Segments: no acute changes ASA given to the pt in ED: No Chest X-Ray 03/26/2019: no consolidation, no effusion, no pneumothorax, no acute cardiopulmonary disease CXR: 03/27/2019: worsening bilateral infiltrates, low lung volumes, ETT low CT A/P: Lung bases: No mass. No consolidation. ABDOMEN: Liver: Unremarkable. Gallbladder and bile ducts: Unremarkable. Pancreas: Stranding around the pancreas. Multiple calcifications within the pancreas.. Spleen: Unremarkable. Adrenals: Unremarkable. Kidneys and ureters: No hydronephrosis. Stomach and bowel: No bowel obstruction. No bowel wall thickening. Fatty infiltration of the colonic wall. Mild hiatal hernia. PELVIS: Appendix: No evidence of appendicitis. Bladder: Unremarkable. Reproductive: Unremarkable. ABDOMEN and PELVIS: Intraperitoneal space: Unremarkable. Bones/joints: No acute fractures. Soft tissues: Fat containing periumbilical hernia. Vasculature: No abdominal aortic aneurysm. Lymph nodes: No enlarged lymph nodes. Critical Care - Objective Last 24 Hour Vital Signs Date Time Temp Pulse Resp B/P (MAP) Pulse Ox O2 Delivery O2 Flow Rate FiO2 04/01/19 16:32 Mechanical Ventilator 04/01/19 15:57 40 04/01/19 15:30 94 26 130/87 100 Mechanical Ventilator 60 04/01/19 15:18 94 26 99 Mechanical Ventilator 60 105 28 60 04/01/19 15:00 Mechanical Ventilator 04/01/19 15:00 93 26 124/78 100 Mechanical Ventilator 60 04/01/19 14:00 Mechanical Ventilator 04/01/19 14:00 99 20 132/89 100 Mechanical Ventilator 60 04/01/19 13:20 107 45 60 04/01/19 13:00 99 26 122/76 98 Mechanical Ventilator 60 04/01/19 13:00 Mechanical Ventilator 04/01/19 12:00 99.0 102 24 126/81 99 Mechanical Ventilator 90 04/01/19 12:00 Mechanical Ventilator 04/01/19 12:00 Mechanical Ventilator 04/01/19 12:00 65 04/01/19 12:00 108 04/01/19 11:45 Mechanical Ventilator 04/01/19 11:40 Mechanical Ventilator 04/01/19 11:30 Mechanical Ventilator 04/01/19 11:15 Mechanical Ventilator 04/01/19 11:00 108 26 136/82 100 Mechanical Ventilator 90 04/01/19 11:00 Mechanical Ventilator 04/01/19 10:36 115 26 100 Mechanical Ventilator 60 115 26 60 04/01/19 10:30 112 0 139/84 100 Mechanical Ventilator 90 04/01/19 10:00 112 24 142/86 100 Mechanical Ventilator 90 04/01/19 10:00 Mechanical Ventilator 04/01/19 09:30 111 21 146/91 100 Mechanical Ventilator 90 04/01/19 09:00 112 20 142/88 100 Mechanical Ventilator 90 04/01/19 09:00 Mechanical Ventilator 04/01/19 08:45 108 26 65 04/01/19 08:00 100.1 106 24 146/98 100 Mechanical Ventilator 90 04/01/19 08:00 Mechanical Ventilator 04/01/19 08:00 102 04/01/19 08:00 Mechanical Ventilator 04/01/19 08:00 90 04/01/19 07:00 101 26 134/89 100 Mechanical Ventilator 90 04/01/19 07:00 26 Mechanical Ventilator 90 04/01/19 06:42 104 26 100 Mechanical Ventilator 90 105 26 90 04/01/19 06:30 104 26 04/01/19 06:18 26 Mechanical Ventilator 90 04/01/19 06:00 108 13 130/84 100 Mechanical Ventilator 90 04/01/19 06:00 26 Mechanical Ventilator 90 04/01/19 05:30 107 26 141/89 100 Mechanical Ventilator 90 04/01/19 05:30 107 26 90 04/01/19 05:10 110 21 152/96 100 Mechanical Ventilator 90 04/01/19 05:00 106 15 150/100 100 Mechanical Ventilator 90 04/01/19 05:00 26 Mechanical Ventilator 90 04/01/19 04:45 30 Mechanical Ventilator 90 04/01/19 04:30 30 Mechanical Ventilator 90 04/01/19 04:00 90 04/01/19 04:00 26 Mechanical Ventilator 90 04/01/19 04:00 98.9 105 27 148/97 100 Mechanical Ventilator 90 04/01/19 04:00 Mechanical Ventilator 04/01/19 03:35 26 Mechanical Ventilator 90 04/01/19 03:20 28 Mechanical Ventilator 90 04/01/19 03:10 106 04/01/19 03:05 102 26 100 Mechanical Ventilator 90 105 26 90 04/01/19 03:00 26 Mechanical Ventilator 90 04/01/19 03:00 109 27 148/97 100 Mechanical Ventilator 90 04/01/19 02:00 26 Mechanical Ventilator 90 04/01/19 02:00 100 26 143/90 100 Mechanical Ventilator 90 04/01/19 01:30 105 28 90 04/01/19 01:00 26 Mechanical Ventilator 90 04/01/19 01:00 101 26 139/91 100 Mechanical Ventilator 90 04/01/19 00:00 90 04/01/19 00:00 98.7 95 26 128/83 98 Mechanical Ventilator 90 04/01/19 00:00 26 Mechanical Ventilator 90 04/01/19 00:00 Mechanical Ventilator 03/31/19 23:30 92 26 99 Mechanical Ventilator 90 94 26 90 03/31/19 23:18 95 03/31/19 23:00 100 26 125/81 100 Mechanical Ventilator 90 03/31/19 23:00 26 Mechanical Ventilator 90 03/31/19 22:00 26 Mechanical Ventilator 90 03/31/19 22:00 99 26 112/71 100 Mechanical Ventilator 90 03/31/19 21:30 99 26 90 03/31/19 21:00 26 Mechanical Ventilator 90 03/31/19 21:00 102 26 115/74 100 Mechanical Ventilator 90 03/31/19 20:00 98.8 107 28 121/78 100 Mechanical Ventilator 90 03/31/19 20:00 26 Mechanical Ventilator 90 03/31/19 20:00 Mechanical Ventilator 03/31/19 20:00 90 03/31/19 19:39 27 Mechanical Ventilator 90 03/31/19 19:30 105 29 100 Mechanical Ventilator 90 102 26 90 03/31/19 19:04 107 03/31/19 19:00 26 Mechanical Ventilator 90 03/31/19 19:00 106 24 110/77 100 Mechanical Ventilator 90 03/31/19 18:47 99.9 03/31/19 18:00 107 26 118/79 100 Mechanical Ventilator 90 Accucheck: 89 Critical Care - Subjective ROS Limited/Unobtainable: No Condition: improving FI02: 40 Vent Support Breath Rate: 26 Vent Support Mode: AC Vent Tidal Volume: 450 Sputum Amount: Small PEEP: 10.0 PIP: 35 Tube Feeding Amount: 20 I&O: Intake and Output 03/31/19 04/01/19 18:59 06:59 Intake Total 838 ml 714.5 ml Output Total 2525 ml 445 ml Balance -1687 ml 269.5 ml Free Water 100 ml 50 ml IV Total 498 ml 464.5 ml Tube Feeding 180 ml 200 ml Other 60 ml Output Urine Total 525 ml 445 ml Hemodialysis UF 2000 ml ET-Tube: 7.5 ET Position: 23 Julio Rodrigez MD Apr 01, 2019 17:41
[2019-04-01] MEDS: Dyna-Hex 2% Top Sol 2oz TOPIC SCH (20:03)
[2019-04-01] MEDS: Epoetin Alfa-EPBX(ESRD on dialysis)10,000 unit/ml vial SUBQ SCH (20:57)
--- NOTE | 2019-04-01 22:35 | Surgery Progress Note ---
Surgery Progress Note Subjective Procedure Performed right femoral central venous catheter insertion Additional Comments leukocytosis labs noted exam stable on support sedated poor prognosis Objective Last 24 Hour Vital Signs Date Time Temp Pulse Resp B/P (MAP) Pulse Ox O2 Delivery O2 Flow Rate FiO2 04/01/19 22:00 108 26 137/85 99 Mechanical Ventilator 55 04/01/19 21:30 107 16 152/97 98 Mechanical Ventilator 55 04/01/19 21:00 115 30 162/143 97 Mechanical Ventilator 55 04/01/19 21:00 55 04/01/19 20:30 123 29 154/97 95 Mechanical Ventilator 40 04/01/19 20:26 120 33 40 55 04/01/19 20:00 98.9 111 27 144/95 90 Mechanical Ventilator 40 04/01/19 20:00 40 04/01/19 19:30 110 28 136/87 95 Mechanical Ventilator 60 04/01/19 19:13 112 27 40 40 04/01/19 19:02 Mechanical Ventilator 04/01/19 19:00 110 27 143/85 95 Mechanical Ventilator 60 04/01/19 18:30 109 21 145/89 95 Mechanical Ventilator 60 04/01/19 18:00 Mechanical Ventilator 04/01/19 18:00 106 23 137/88 94 Mechanical Ventilator 60 04/01/19 17:30 94 19 127/80 95 Mechanical Ventilator 60 04/01/19 17:20 98 22 40 04/01/19 17:00 95 26 127/82 94 Mechanical Ventilator 60 04/01/19 17:00 Mechanical Ventilator 04/01/19 16:32 Mechanical Ventilator 04/01/19 16:00 95 04/01/19 16:00 Mechanical Ventilator 04/01/19 16:00 99.8 93 26 128/83 94 Mechanical Ventilator 60 04/01/19 16:00 Mechanical Ventilator 04/01/19 16:00 40 04/01/19 15:57 40 04/01/19 15:30 94 26 130/87 100 Mechanical Ventilator 60 04/01/19 15:18 94 26 99 Mechanical Ventilator 60 105 28 60 04/01/19 15:00 Mechanical Ventilator 04/01/19 15:00 93 26 124/78 100 Mechanical Ventilator 60 04/01/19 14:00 Mechanical Ventilator 04/01/19 14:00 99 20 132/89 100 Mechanical Ventilator 60 04/01/19 13:20 107 45 60 04/01/19 13:00 99 26 122/76 98 Mechanical Ventilator 60 04/01/19 13:00 Mechanical Ventilator 04/01/19 12:00 99.0 102 24 126/81 99 Mechanical Ventilator 90 04/01/19 12:00 Mechanical Ventilator 04/01/19 12:00 Mechanical Ventilator 04/01/19 12:00 65 04/01/19 12:00 108 04/01/19 11:45 Mechanical Ventilator 04/01/19 11:40 Mechanical Ventilator 04/01/19 11:30 Mechanical Ventilator 04/01/19 11:15 Mechanical Ventilator 04/01/19 11:00 108 26 136/82 100 Mechanical Ventilator 90 04/01/19 11:00 Mechanical Ventilator 04/01/19 10:36 115 26 100 Mechanical Ventilator 60 115 26 60 04/01/19 10:30 112 0 139/84 100 Mechanical Ventilator 90 04/01/19 10:00 112 24 142/86 100 Mechanical Ventilator 90 04/01/19 10:00 Mechanical Ventilator 04/01/19 09:30 111 21 146/91 100 Mechanical Ventilator 90 04/01/19 09:00 112 20 142/88 100 Mechanical Ventilator 90 04/01/19 09:00 Mechanical Ventilator 04/01/19 08:45 108 26 65 04/01/19 08:00 100.1 106 24 146/98 100 Mechanical Ventilator 90 04/01/19 08:00 Mechanical Ventilator 04/01/19 08:00 102 04/01/19 08:00 Mechanical Ventilator 04/01/19 08:00 90 04/01/19 07:00 101 26 134/89 100 Mechanical Ventilator 90 04/01/19 07:00 26 Mechanical Ventilator 90 04/01/19 06:42 104 26 100 Mechanical Ventilator 90 105 26 90 04/01/19 06:30 104 26 04/01/19 06:18 26 Mechanical Ventilator 90 04/01/19 06:00 108 13 130/84 100 Mechanical Ventilator 90 04/01/19 06:00 26 Mechanical Ventilator 90 04/01/19 05:30 107 26 141/89 100 Mechanical Ventilator 90 04/01/19 05:30 107 26 90 04/01/19 05:10 110 21 152/96 100 Mechanical Ventilator 90 04/01/19 05:00 106 15 150/100 100 Mechanical Ventilator 90 04/01/19 05:00 26 Mechanical Ventilator 90 04/01/19 04:45 30 Mechanical Ventilator 90 04/01/19 04:30 30 Mechanical Ventilator 90 04/01/19 04:00 90 04/01/19 04:00 26 Mechanical Ventilator 90 04/01/19 04:00 98.9 105 27 148/97 100 Mechanical Ventilator 90 04/01/19 04:00 Mechanical Ventilator 04/01/19 03:35 26 Mechanical Ventilator 90 04/01/19 03:20 28 Mechanical Ventilator 90 04/01/19 03:10 106 04/01/19 03:05 102 26 100 Mechanical Ventilator 90 105 26 90 04/01/19 03:00 26 Mechanical Ventilator 90 04/01/19 03:00 109 27 148/97 100 Mechanical Ventilator 90 04/01/19 02:00 26 Mechanical Ventilator 90 04/01/19 02:00 100 26 143/90 100 Mechanical Ventilator 90 04/01/19 01:30 105 28 90 04/01/19 01:00 26 Mechanical Ventilator 90 04/01/19 01:00 101 26 139/91 100 Mechanical Ventilator 90 04/01/19 00:00 90 04/01/19 00:00 98.7 95 26 128/83 98 Mechanical Ventilator 90 04/01/19 00:00 26 Mechanical Ventilator 90 04/01/19 00:00 Mechanical Ventilator 03/31/19 23:30 92 26 99 Mechanical Ventilator 90 94 26 90 03/31/19 23:18 95 03/31/19 23:00 100 26 125/81 100 Mechanical Ventilator 90 03/31/19 23:00 26 Mechanical Ventilator 90 I&O Intake and Output 03/31/19 04/01/19 18:59 06:59 Intake Total 838 ml 714.5 ml Output Total 2525 ml 445 ml Balance -1687 ml 269.5 ml Free Water 100 ml 50 ml IV Total 498 ml 464.5 ml Tube Feeding 180 ml 200 ml Other 60 ml Output Urine Total 525 ml 445 ml Hemodialysis UF 2000 ml Dressing: other Wound: other Drains: other Cardiovascular: RSR Respiratory: decreased breath sounds Abdomen: soft, decreased bowel sounds Extremities: edema, no cyanosis, other Laboratory Tests Test 04/01/19 05:20 04/01/19 08:40 White Blood Count 13.1 K/UL (4.8-10.8) H Red Blood Count 2.83 M/UL (4.20-5.40) L Hemoglobin 8.7 G/DL (12.0-16.0) L Hematocrit 25.7 % (37.0-47.0) L Mean Corpuscular Volume 91 FL (80-99) Mean Corpuscular Hemoglobin 30.9 PG (27.0-31.0) Mean Corpuscular Hemoglobin Concent 34.0 G/DL (32.0-36.0) Red Cell Distribution Width 16.1 % (11.6-14.8) H Platelet Count 134 K/UL (150-450) L Mean Platelet Volume 7.6 FL (6.5-10.1) Neutrophils (%) (Auto) 82.7 % (45.0-75.0) H Lymphocytes (%) (Auto) 7.5 % (20.0-45.0) L Monocytes (%) (Auto) 6.7 % (1.0-10.0) Eosinophils (%) (Auto) 2.5 % (0.0-3.0) Basophils (%) (Auto) 0.7 % (0.0-2.0) Erythrocyte Sedimentation Rate 110 MM/HR (0-20) H Prothrombin Time 12.7 SEC (9.30-11.50) H Prothromb Time International Ratio 1.2 (0.9-1.1) H Activated Partial Thromboplast Time 28 SEC (23-33) Sodium Level 138 MMOL/L (136-145) Potassium Level 2.9 MMOL/L (3.5-5.1) L Chloride Level 103 MMOL/L (98-107) Carbon Dioxide Level 27 MMOL/L (21-32) Anion Gap 8 mmol/L (5-15) Blood Urea Nitrogen 24 mg/dL (7-18) H Creatinine 3.3 MG/DL (0.55-1.30) H Estimat Glomerular Filtration Rate 18.7 mL/min (>60) Glucose Level 128 MG/DL (74-106) H Uric Acid 3.7 MG/DL (2.6-7.2) Calcium Level 8.5 MG/DL (8.5-10.1) Phosphorus Level 2.8 MG/DL (2.5-4.9) Magnesium Level 2.0 MG/DL (1.8-2.4) Total Bilirubin 1.5 MG/DL (0.2-1.0) H Direct Bilirubin 1.0 MG/DL (0.0-0.3) H Gamma Glutamyl Transpeptidase 1079 U/L (5-85) H Aspartate Amino Transf (AST/SGOT) 171 U/L (15-37) H Alanine Aminotransferase (ALT/SGPT) 732 U/L (12-78) H Alkaline Phosphatase 721 U/L (46-116) H C-Reactive Protein, Quantitative 28.1 mg/dL (0.00-0.90) H Pro-B-Type Natriuretic Peptide 759 pg/mL (0-125) H Total Protein 5.5 G/DL (6.4-8.2) L Albumin 1.8 G/DL (3.4-5.0) L Globulin 3.7 g/dL Albumin/Globulin Ratio 0.5 (1.0-2.7) L Amylase Level 17 U/L (25-115) L Lipase 19 U/L (73-393) L Arterial Blood pH 7.428 (7.350-7.450) Arterial Blood Partial Pressure CO2 41.1 mmHg (35.0-45.0) Arterial Blood Partial Pressure O2 270.2 mmHg (75.0-100.0) H Arterial Blood HCO3 26.5 mmol/L (22.0-26.0) H Arterial Blood Oxygen Saturation 98.8 % (95-100) Arterial Blood Base Excess 2.0 (-2-2) Amarjit Test Positive Plan Problems: (1) Abdominal pain Assessment & Plan: 43F presented with abd pain per report 01/04 generalized unable to obtain exam now that she is intubated in distress labs noted ventral incisional hernia reducible abd soft -npo -iv fluids -okay to tube feeds trend labs -will order imaging when stabilized -HD as per renal -appreciate ICU care will follow with recs thank you (2) Ventral hernia (3) Acute on chronic pancreatitis Assessment & Plan: Evidence of acute on chronic pancreatitis. No pseudocyst. Hepatomegaly with severe steatosis. Mild hiatal hernia. abnormal lft's dehydrated dka renal insufficiency -npo iv fluids tailored to uop appreciate endocrine input appreciate center consultant input needs urgent/emergency central venous catheter. see note HD as per renal vent support trend labs will follow with recs Lefty Meraz Apr 01, 2019 22:35
[2019-04-02] VITALS (43 sets, daily range): BP systolic 113–146; BP diastolic 75–105
[2019-04-02] MEDS: NovoLOG Insulin Flexpen SUBQ SCH ×6 (00:50→21:42)
[2019-04-02] MEDS: Piperacillin/Tazobactam 2.25 GM in NS 55 ML IV SCH ×2 (02:00→10:01)
[2019-04-02] MEDS: Versed 50mg/D5W 100ml 100 ML IV PRN ×5 (04:42→23:15)
[2019-04-02 05:38] LABS: BASOPHILS % (AUTO) 0.8 % (0.0-2.0); EOSINOPHILS % (AUTO) 1.4 % (0.0-3.0); HEMATOCRIT 26.8 % (37.0-47.0); HEMOGLOBIN 8.9 G/DL (12.0-16.0); LYMPHOCYTES % (AUTO) 10.7 % (20.0-45.0); MEAN CORPUSCULAR VOLUME 91 FL (80-99); MONOCYTES % (AUTO) 6.7 % (1.0-10.0); NEUTROPHILS % (AUTO) 80.4 % (45.0-75.0); PLATELET COUNT 144 K/UL (150-450); RED BLOOD COUNT 2.95 M/UL (4.20-5.40); RED CELL DISTRIBUTION WIDTH 15.9 % (11.6-14.8); WHITE BLOOD COUNT 16.2 K/UL (4.8-10.8)
[2019-04-02 06:19] LABS: ALANINE AMINOTRANSFERASE 510 U/L (12-78); ALBUMIN 1.8 G/DL (3.4-5.0); ALBUMIN/GLOBULIN RATIO 0.4 (1.0-2.7); ALKALINE PHOSPHATASE 746 U/L (46-116); ANION GAP 10 mmol/L (5-15); ASPARTATE AMINO TRANSFERASE 109 U/L (15-37); BILIRUBIN,TOTAL 1.3 MG/DL (0.2-1.0); BLOOD UREA NITROGEN 31 mg/dL (7-18); CALCIUM 8.7 MG/DL (8.5-10.1); CARBON DIOXIDE 27 MMOL/L (21-32); CHLORIDE 104 MMOL/L (98-107); CREATININE 3.5 MG/DL (0.55-1.30); PHOSPHORUS 2.8 MG/DL (2.5-4.9); POTASSIUM 3.3 MMOL/L (3.5-5.1); SODIUM 141 MMOL/L (136-145)
[2019-04-02 06:35] LABS: BILIRUBIN,DIRECT 0.8 MG/DL (0.0-0.3)
[2019-04-02] MEDS: Pantoprazole Inj IVP SCH ×2 (08:25→20:57)
[2019-04-02] MEDS: Vitamin D 1000 IU Tab GT SCH (08:25)
[2019-04-02] MEDS: Levemir Flexpen SUBQ SCH ×2 (08:29→17:26)
--- NOTE | 2019-04-02 08:54 | Nephrology Progress Note ---
Assessment/Plan Problem List: (1) Acute renal failure (ARF) (2) Respiratory failure (3) DKA (diabetic ketoacidoses) (4) LFT elevation (5) Electrolyte imbalance Assessment: Low Mag and Low Ca (6) Thrombocytopathia Assessment Acute respiratory failure Acute renal failure high LFTs, thrombocytopenia ? HUS ? CKD undelying DKA Elevated Lipase coagulopathy Plan DIALYSIS done 03/29 and 03/31 due dialysis 04/02 labs reviewed Vent support mionitor electrolyte and chemistries 2D echo noted below Kidney ABBY noted below per order GI , Hematology? Ca and Mag IV Vit K Vit D Echo Hyperkinetic wall motion. Left ventricular ejection fraction estimated to be 55-60 %. Moderate left ventricular hypertrophy by 2D. Abd CT: Evidence of acute on chronic pancreatitis. No pseudocyst. Hepatomegaly with severe steatosis. Subjective ROS Limited/Unobtainable: Yes Objective Objective Last 24 Hour Vital Signs Date Time Temp Pulse Resp B/P (MAP) Pulse Ox O2 Delivery O2 Flow Rate FiO2 04/02/19 08:00 100.0 116 27 143/92 95 Mechanical Ventilator 40 04/02/19 08:00 40 04/02/19 08:00 30 Mechanical Ventilator 40 04/02/19 07:07 102 30 40 04/02/19 07:00 26 Mechanical Ventilator 40 04/02/19 07:00 108 28 131/87 98 Mechanical Ventilator 40 04/02/19 06:30 108 26 125/85 98 Mechanical Ventilator 40 04/02/19 06:30 108 26 04/02/19 06:00 110 27 130/85 97 Mechanical Ventilator 40 04/02/19 06:00 27 Mechanical Ventilator 40 04/02/19 05:30 110 29 126/87 98 Mechanical Ventilator 40 04/02/19 05:12 107 28 40 40 04/02/19 05:00 107 28 126/81 99 Mechanical Ventilator 40 04/02/19 05:00 28 Mechanical Ventilator 40 04/02/19 04:42 30 Mechanical Ventilator 40 04/02/19 04:30 108 31 122/82 99 Mechanical Ventilator 40 04/02/19 04:00 Mechanical Ventilator 04/02/19 04:00 28 Mechanical Ventilator 55 04/02/19 04:00 98.6 106 30 121/81 99 Mechanical Ventilator 55 04/02/19 04:00 55 04/02/19 04:00 106 04/02/19 03:30 108 24 135/91 97 Mechanical Ventilator 55 04/02/19 03:19 108 30 40 40 04/02/19 03:00 26 Mechanical Ventilator 55 04/02/19 03:00 106 26 135/90 97 Mechanical Ventilator 55 04/02/19 02:30 111 9 136/85 94 Mechanical Ventilator 55 04/02/19 02:00 26 Mechanical Ventilator 55 04/02/19 02:00 105 19 136/86 96 Mechanical Ventilator 55 04/02/19 01:30 101 7 135/87 97 Mechanical Ventilator 55 04/02/19 01:03 100 26 40 45 04/02/19 01:00 99 6 128/82 98 Mechanical Ventilator 55 04/02/19 01:00 26 Mechanical Ventilator 55 04/02/19 00:30 95 24 122/75 99 Mechanical Ventilator 55 04/02/19 00:00 Mechanical Ventilator 04/02/19 00:00 97 04/02/19 00:00 26 Mechanical Ventilator 55 04/02/19 00:00 55 04/02/19 00:00 98.5 97 26 122/78 99 Mechanical Ventilator 55 04/01/19 23:35 26 Mechanical Ventilator 55 04/01/19 23:30 98 26 121/74 99 Mechanical Ventilator 55 04/01/19 23:00 26 Mechanical Ventilator 55 04/01/19 23:00 102 26 121/79 98 Mechanical Ventilator 55 04/01/19 22:39 105 26 40 55 04/01/19 22:30 106 23 137/86 98 Mechanical Ventilator 55 04/01/19 22:00 108 26 137/85 99 Mechanical Ventilator 55 04/01/19 22:00 26 Mechanical Ventilator 55 04/01/19 21:30 107 16 152/97 98 Mechanical Ventilator 55 04/01/19 21:00 115 30 162/143 97 Mechanical Ventilator 55 04/01/19 21:00 55 04/01/19 21:00 30 Mechanical Ventilator 55 04/01/19 20:30 33 Mechanical Ventilator 40 04/01/19 20:30 123 29 154/97 95 Mechanical Ventilator 40 04/01/19 20:26 120 33 40 55 04/01/19 20:00 98.9 111 27 144/95 90 Mechanical Ventilator 40 04/01/19 20:00 Mechanical Ventilator 04/01/19 20:00 111 04/01/19 20:00 27 Mechanical Ventilator 40 04/01/19 20:00 40 12/6/19 19:30 110 28 136/87 95 Mechanical Ventilator 60 04/01/19 19:13 112 27 40 40 04/01/19 19:02 Mechanical Ventilator 04/01/19 19:00 110 27 143/85 95 Mechanical Ventilator 60 04/01/19 18:30 109 21 145/89 95 Mechanical Ventilator 60 04/01/19 18:00 Mechanical Ventilator 04/01/19 18:00 106 23 137/88 94 Mechanical Ventilator 60 04/01/19 17:30 94 19 127/80 95 Mechanical Ventilator 60 04/01/19 17:20 98 22 40 04/01/19 17:00 95 26 127/82 94 Mechanical Ventilator 60 04/01/19 17:00 Mechanical Ventilator 04/01/19 16:32 Mechanical Ventilator 04/01/19 16:00 95 04/01/19 16:00 Mechanical Ventilator 04/01/19 16:00 99.8 93 26 128/83 94 Mechanical Ventilator 60 04/01/19 16:00 Mechanical Ventilator 04/01/19 16:00 40 04/01/19 15:57 40 04/01/19 15:30 94 26 130/87 100 Mechanical Ventilator 60 04/01/19 15:18 94 26 99 Mechanical Ventilator 60 105 28 60 04/01/19 15:00 Mechanical Ventilator 04/01/19 15:00 93 26 124/78 100 Mechanical Ventilator 60 04/01/19 14:00 Mechanical Ventilator 04/01/19 14:00 99 20 132/89 100 Mechanical Ventilator 60 04/01/19 13:20 107 45 60 04/01/19 13:00 99 26 122/76 98 Mechanical Ventilator 60 04/01/19 13:00 Mechanical Ventilator 04/01/19 12:00 99.0 102 24 126/81 99 Mechanical Ventilator 90 04/01/19 12:00 Mechanical Ventilator 04/01/19 12:00 Mechanical Ventilator 04/01/19 12:00 65 04/01/19 12:00 108 04/01/19 11:45 Mechanical Ventilator 04/01/19 11:40 Mechanical Ventilator 04/01/19 11:30 Mechanical Ventilator 04/01/19 11:15 Mechanical Ventilator 04/01/19 11:00 108 26 136/82 100 Mechanical Ventilator 90 04/01/19 11:00 Mechanical Ventilator 04/01/19 10:36 115 26 100 Mechanical Ventilator 60 115 26 60 12/6/19 10:30 112 0 139/84 100 Mechanical Ventilator 90 04/01/19 10:00 112 24 142/86 100 Mechanical Ventilator 90 04/01/19 10:00 Mechanical Ventilator 04/01/19 09:30 111 21 146/91 100 Mechanical Ventilator 90 04/01/19 09:00 112 20 142/88 100 Mechanical Ventilator 90 04/01/19 09:00 Mechanical Ventilator Intake and Output 04/01/19 04/02/19 19:00 07:00 Intake Total 936 ml 680 ml Output Total 460 ml 580 ml Balance 476 ml 100 ml Free Water 200 ml 100 ml IV Total 496 ml 340 ml Tube Feeding 240 ml 240 ml Output Urine Total 460 ml 580 ml # Bowel Movements 2 Laboratory Tests 04/02/19 04:13: White Blood Count 16.2H, Red Blood Count 2.95L, Hemoglobin 8.9L, Hematocrit 26.8L, Mean Corpuscular Volume 91, Mean Corpuscular Hemoglobin 30.3, Mean Corpuscular Hemoglobin Concent 33.4, Red Cell Distribution Width 15.9H, Platelet Count 144L, Mean Platelet Volume 7.7, Neutrophils (%) (Auto) 80.4H, Lymphocytes (%) (Auto) 10.7L, Monocytes (%) (Auto) 6.7, Eosinophils (%) (Auto) 1.4, Basophils (%) (Auto) 0.8, Sodium Level 141, Potassium Level 3.3L, Chloride Level 104, Carbon Dioxide Level 27, Anion Gap 10, Blood Urea Nitrogen 31H, Creatinine 3.5H, Estimat Glomerular Filtration Rate 17.5, Glucose Level 119H, Uric Acid 3.8, Calcium Level 8.7, Phosphorus Level 2.8, Magnesium Level 2.2, Total Bilirubin 1.3H, Direct Bilirubin 0.8H, Aspartate Amino Transf (AST/SGOT) 109H, Alanine Aminotransferase (ALT/SGPT) 510H, Alkaline Phosphatase 746H, C- Reactive Protein, Quantitative 35.1H, Pro-B-Type Natriuretic Peptide 563H, Total Protein 6.2L, Albumin 1.8L, Globulin 4.4, Albumin/Globulin Ratio 0.4L 04/02/19 08:06: Arterial Blood pH 7.471H, Arterial Blood Partial Pressure CO2 35.0, Arterial Blood Partial Pressure O2 66.8L, Arterial Blood HCO3 25.0, Arterial Blood Oxygen Saturation 93.2L, Arterial Blood Base Excess 1.4, Amarjit Test Positive Height (Feet): 5 Height (Inches): 2.00 Weight (Pounds): 186 General Appearance: no apparent distress EENT: other - vented Cardiovascular: tachycardia Respiratory/Chest: decreased breath sounds Abdomen: distended Amrit Lopez MD Apr 02, 2019 08:54
[2019-04-02] MEDS: CALCITRIOL 1 MCG/ML GT SCH (10:00)
[2019-04-02] MEDS: Thiamine HCl 100 MG in NS 55 ML IVPB SCH (10:01)
--- NOTE | 2019-04-02 11:06 | Consultation ---
History of Present Illness General Date patient seen: Apr 02, 2019 Chief Complaint: Abdominal Pain Referring physician: LEANNA FELDMAN Reason for Consultation: [employer] Present Illness HPI 43 y/o F with hx of Dm2, HTN, tobacco and ETOH abuse, COPD, pancreatitis, s/p multiple hernia operations x3 (, first two in 2015; Last repair May 2018 with mesh placement at [facility] in [place]), obesity presented to ED on 03/26 with abd pain, nausea, vomiting, SOB and cough. Upon admission was found to be in diabetic ketoacidosis, started on insulin drip and admitted to ICU. Patient was lethargic and was intubated on 03/27 and remains intubated. Patient now is febrile and has rising leukocytosis. Also patient with pancreatitis. Denied chest pain, f/c upon admission Allergies: Coded Allergies: No Known Allergies (Unverified , 08/04/18) Medication History Scheduled Amlodipine Besylate* (Amlodipine Besylate*), 5 MG ORAL DAILY, (Reported) Cephalexin* (Keflex*), 500 MG ORAL EVERY 6 HOURS, (Reported) Doxycycline Hyclate* (Vibramycin*), 100 MG ORAL DAILY, (Reported) Fluconazole (Fluconazole), 100 MG ORAL BID, (Reported) Gabapentin* (Gabapentin*), 300 MG ORAL BID, (Reported) Ketoconazole (Ketoconazole), 1 APPLIC TOPIC DAILYPRN, (Reported) Liraglutide (Victoza 2-Rodrigo), 0.6 MG SUBQ DAILY, (Reported) Metformin Hcl* (Glucophage*), 1,000 MG ORAL BID Nystatin* (Nystatin*), 1 APPLIC TOPIC THREE TIMES A DAY Triamcinolone (Triamcinolone Acetonide), 1 EA APPLIC EVERY 12 HOURS [Basaglar], 20 UNITS SUBQ BID, (Reported) [Empagliflozin], 10 MG PO DAILY, (Reported) Scheduled PRN Benzonatate* (Benzonatate*), 100 MG ORAL THREE TIMES A DAY PRN for For Cough, ( Reported) Miscellaneous Medications [Admelog], SUBQ, (Reported) [Admelog], (Reported) Patient History Healthcare decision maker Resuscitation status Full Code Advanced Directive on File Patient History Narrative Pmhx: as above Shx: The patient is engaged and is disabled. The patient admits to tobacco use of one pack per day. The patient denies alcohol use. Fhx: non contributory Review of Systems All Other Systems: negative except mentioned in HPI Physical Exam Physical Exam Narrative GENERAL: The patient is a well-developed, well-nourished, obese female, in no apparent distress. HEENT: Eyes, pupils equal and responsive to light and accommodation. Extraocular movements are intact. NECK: Supple. No lymphadenopathy. CHEST: Lungs are clear to auscultation bilaterally without wheezes or rales. CARDIOVASCULAR: Regular rate. S1, S2 normal without murmurs, rubs, or gallops. ABDOMEN: Soft, tender to palpation in the epigastric region, with decreased bowel sounds. There is tenderness to palpation in the epigastric region. There is no rebound or guarding noted. EXTREMITIES: Negative for clubbing, cyanosis, or edema. Last 24 Hour Vital Signs Date Time Temp Pulse Resp B/P (MAP) Pulse Ox O2 Delivery O2 Flow Rate FiO2 04/02/19 10:02 30 Mechanical Ventilator 50 04/02/19 10:00 30 Mechanical Ventilator 50 04/02/19 10:00 111 31 146/99 100 Mechanical Ventilator 50 04/02/19 09:30 116 35 144/102 100 Mechanical Ventilator 50 04/02/19 09:11 117 31 50 04/02/19 09:00 115 25 144/99 100 Mechanical Ventilator 50 04/02/19 09:00 26 Mechanical Ventilator 40 04/02/19 08:30 115 29 133/88 97 Mechanical Ventilator 40 04/02/19 08:00 100.0 116 27 143/92 95 Mechanical Ventilator 40 04/02/19 08:00 40 04/02/19 08:00 30 Mechanical Ventilator 40 04/02/19 08:00 Mechanical Ventilator 04/02/19 07:07 102 30 40 04/02/19 07:00 26 Mechanical Ventilator 40 04/02/19 07:00 108 28 131/87 98 Mechanical Ventilator 40 04/02/19 06:30 108 26 125/85 98 Mechanical Ventilator 40 04/02/19 06:30 108 26 04/02/19 06:00 110 27 130/85 97 Mechanical Ventilator 40 04/02/19 06:00 27 Mechanical Ventilator 40 04/02/19 05:30 110 29 126/87 98 Mechanical Ventilator 40 04/02/19 05:12 107 28 40 40 04/02/19 05:00 107 28 126/81 99 Mechanical Ventilator 40 04/02/19 05:00 28 Mechanical Ventilator 40 04/02/19 04:42 30 Mechanical Ventilator 40 04/02/19 04:30 108 31 122/82 99 Mechanical Ventilator 40 04/02/19 04:00 Mechanical Ventilator 04/02/19 04:00 28 Mechanical Ventilator 55 04/02/19 04:00 98.6 106 30 121/81 99 Mechanical Ventilator 55 04/02/19 04:00 55 04/02/19 04:00 106 04/02/19 03:30 108 24 135/91 97 Mechanical Ventilator 55 04/02/19 03:19 108 30 40 40 04/02/19 03:00 26 Mechanical Ventilator 55 04/02/19 03:00 106 26 135/90 97 Mechanical Ventilator 55 04/02/19 02:30 111 9 136/85 94 Mechanical Ventilator 55 04/02/19 02:00 26 Mechanical Ventilator 55 04/02/19 02:00 105 19 136/86 96 Mechanical Ventilator 55 04/02/19 01:30 101 7 135/87 97 Mechanical Ventilator 55 04/02/19 01:03 100 26 40 45 04/02/19 01:00 99 6 128/82 98 Mechanical Ventilator 55 04/02/19 01:00 26 Mechanical Ventilator 55 04/02/19 00:30 95 24 122/75 99 Mechanical Ventilator 55 04/02/19 00:00 Mechanical Ventilator 04/02/19 00:00 97 04/02/19 00:00 26 Mechanical Ventilator 55 04/02/19 00:00 55 04/02/19 00:00 98.5 97 26 122/78 99 Mechanical Ventilator 55 04/01/19 23:35 26 Mechanical Ventilator 55 04/01/19 23:30 98 26 121/74 99 Mechanical Ventilator 55 04/01/19 23:00 26 Mechanical Ventilator 55 04/01/19 23:00 102 26 121/79 98 Mechanical Ventilator 55 04/01/19 22:39 105 26 40 55 04/01/19 22:30 106 23 137/86 98 Mechanical Ventilator 55 04/01/19 22:00 108 26 137/85 99 Mechanical Ventilator 55 04/01/19 22:00 26 Mechanical Ventilator 55 04/01/19 21:30 107 16 152/97 98 Mechanical Ventilator 55 04/01/19 21:00 115 30 162/143 97 Mechanical Ventilator 55 04/01/19 21:00 55 04/01/19 21:00 30 Mechanical Ventilator 55 04/01/19 20:30 33 Mechanical Ventilator 40 04/01/19 20:30 123 29 154/97 95 Mechanical Ventilator 40 04/01/19 20:26 120 33 40 55 04/01/19 20:00 98.9 111 27 144/95 90 Mechanical Ventilator 40 04/01/19 20:00 Mechanical Ventilator 04/01/19 20:00 111 04/01/19 20:00 27 Mechanical Ventilator 40 04/01/19 20:00 40 04/01/19 19:30 110 28 136/87 95 Mechanical Ventilator 60 04/01/19 19:13 112 27 40 40 04/01/19 19:02 Mechanical Ventilator 04/01/19 19:00 110 27 143/85 95 Mechanical Ventilator 60 04/01/19 18:30 109 21 145/89 95 Mechanical Ventilator 60 04/01/19 18:00 Mechanical Ventilator 04/01/19 18:00 106 23 137/88 94 Mechanical Ventilator 60 04/01/19 17:30 94 19 127/80 95 Mechanical Ventilator 60 04/01/19 17:20 98 22 40 04/01/19 17:00 95 26 127/82 94 Mechanical Ventilator 60 04/01/19 17:00 Mechanical Ventilator 04/01/19 16:32 Mechanical Ventilator 04/01/19 16:00 95 04/01/19 16:00 Mechanical Ventilator 04/01/19 16:00 99.8 93 26 128/83 94 Mechanical Ventilator 60 04/01/19 16:00 Mechanical Ventilator 04/01/19 16:00 40 04/01/19 15:57 40 04/01/19 15:30 94 26 130/87 100 Mechanical Ventilator 60 04/01/19 15:18 94 26 99 Mechanical Ventilator 60 105 28 60 04/01/19 15:00 Mechanical Ventilator 04/01/19 15:00 93 26 124/78 100 Mechanical Ventilator 60 04/01/19 14:00 Mechanical Ventilator 04/01/19 14:00 99 20 132/89 100 Mechanical Ventilator 60 04/01/19 13:20 107 45 60 04/01/19 13:00 99 26 122/76 98 Mechanical Ventilator 60 04/01/19 13:00 Mechanical Ventilator 04/01/19 12:00 99.0 102 24 126/81 99 Mechanical Ventilator 90 04/01/19 12:00 Mechanical Ventilator 04/01/19 12:00 Mechanical Ventilator 04/01/19 12:00 65 04/01/19 12:00 108 04/01/19 11:45 Mechanical Ventilator 04/01/19 11:40 Mechanical Ventilator 04/01/19 11:30 Mechanical Ventilator 04/01/19 11:15 Mechanical Ventilator 04/01/19 11:00 108 26 136/82 100 Mechanical Ventilator 90 04/01/19 11:00 Mechanical Ventilator Intake and Output 04/01/19 04/02/19 19:00 07:00 Intake Total 936 ml 680 ml Output Total 460 ml 580 ml Balance 476 ml 100 ml Free Water 200 ml 100 ml IV Total 496 ml 340 ml Tube Feeding 240 ml 240 ml Output Urine Total 460 ml 580 ml # Bowel Movements 2 Laboratory Tests Test 04/02/19 04:13 04/02/19 08:06 White Blood Count 16.2 K/UL (4.8-10.8) H Red Blood Count 2.95 M/UL (4.20-5.40) L Hemoglobin 8.9 G/DL (12.0-16.0) L Hematocrit 26.8 % (37.0-47.0) L Mean Corpuscular Volume 91 FL (80-99) Mean Corpuscular Hemoglobin 30.3 PG (27.0-31.0) Mean Corpuscular Hemoglobin Concent 33.4 G/DL (32.0-36.0) Red Cell Distribution Width 15.9 % (11.6-14.8) H Platelet Count 144 K/UL (150-450) L Mean Platelet Volume 7.7 FL (6.5-10.1) Neutrophils (%) (Auto) 80.4 % (45.0-75.0) H Lymphocytes (%) (Auto) 10.7 % (20.0-45.0) L Monocytes (%) (Auto) 6.7 % (1.0-10.0) Eosinophils (%) (Auto) 1.4 % (0.0-3.0) Basophils (%) (Auto) 0.8 % (0.0-2.0) Sodium Level 141 MMOL/L (136-145) Potassium Level 3.3 MMOL/L (3.5-5.1) L Chloride Level 104 MMOL/L (98-107) Carbon Dioxide Level 27 MMOL/L (21-32) Anion Gap 10 mmol/L (5-15) Blood Urea Nitrogen 31 mg/dL (7-18) H Creatinine 3.5 MG/DL (0.55-1.30) H Estimat Glomerular Filtration Rate 17.5 mL/min (>60) Glucose Level 119 MG/DL (74-106) H Uric Acid 3.8 MG/DL (2.6-7.2) Calcium Level 8.7 MG/DL (8.5-10.1) Phosphorus Level 2.8 MG/DL (2.5-4.9) Magnesium Level 2.2 MG/DL (1.8-2.4) Total Bilirubin 1.3 MG/DL (0.2-1.0) H Direct Bilirubin 0.8 MG/DL (0.0-0.3) H Aspartate Amino Transf (AST/SGOT) 109 U/L (15-37) H Alanine Aminotransferase (ALT/SGPT) 510 U/L (12-78) H Alkaline Phosphatase 746 U/L (46-116) H C-Reactive Protein, Quantitative 35.1 mg/dL (0.00-0.90) H Pro-B-Type Natriuretic Peptide 563 pg/mL (0-125) H Total Protein 6.2 G/DL (6.4-8.2) L Albumin 1.8 G/DL (3.4-5.0) L Globulin 4.4 g/dL Albumin/Globulin Ratio 0.4 (1.0-2.7) L Arterial Blood pH 7.471 (7.350-7.450) Arterial Blood Partial Pressure CO2 35.0 mmHg (35.0-45.0) Arterial Blood Partial Pressure O2 66.8 mmHg (75.0-100.0) L Arterial Blood HCO3 25.0 mmol/L (22.0-26.0) Arterial Blood Oxygen Saturation 93.2 % (95-100) L Arterial Blood Base Excess 1.4 (-2-2) Amarjit Test Positive Height (Feet): 5 Height (Inches): 2.00 Weight (Pounds): 186 Medications Current Medications Medications (Trade) Dose Ordered Sig/Greta Route PRN Reason Start Time Stop Time Status Last Admin Dose Admin Acetaminophen (Tylenol) 650 mg Q4H PRN GT T>100.5 03/30/19 09:45 04/29/19 09:44 03/31/19 18:17 Calcitriol (Rocatrol) 0.5 mcg DAILY GT 04/01/19 09:00 05/01/19 08:59 04/02/19 10:00 Chlorhexidine Gluconate (Hetal-Hex 2%) 1 applic DAILY@2000 TOPIC 03/27/19 20:00 04/26/19 19:59 04/01/19 20:03 Dextrose (Dextrose 50%) 25 ml Q30M PRN IV Hypoglycemia 03/28/19 11:30 04/27/19 11:29 Dextrose (Dextrose 50%) 50 ml Q30M PRN IV Hypoglycemia 03/28/19 11:30 04/27/19 11:29 Epoetin John (Epoetin John(ESRD on dialysis)) 10,000 unit [id number]-[id number] SUBQ 03/30/19 21:00 04/29/19 20:59 04/01/19 20:57 Guaifenesin (Robitussin) 200 mg Q4H PRN GT For Cough 03/30/19 09:45 04/26/19 11:14 Insulin Aspart (NovoLOG) EVERY 4 HOURS SUBQ 03/28/19 17:00 04/27/19 11:59 04/02/19 08:30 Insulin Detemir (Levemir) 6 units BID SUBQ 03/30/19 09:00 04/27/19 11:59 04/02/19 08:29 Lorazepam (Ativan 2mg/ml 1ml) 1 mg Q2H PRN IV agitation 03/27/19 18:00 04/02/19 19:59 03/30/19 22:48 Midazolam HCl 100 ml @ 0 mls/hr Q24H PRN IV Agitation 03/28/19 00:15 04/04/19 00:14 04/02/19 10:02 Morphine Sulfate (Morphine Sulfate) 2 mg Q2H PRN IVP Severe Pain (Pain Scale 7-10) 03/28/19 20:15 04/04/19 20:14 03/28/19 23:05 Nitroglycerin (Ntg) 0.4 mg Q5MIN X 3 DOSES PRN SL Prn Chest Pain 03/26/19 20:15 04/25/19 20:14 Ondansetron HCl (Zofran) 4 mg Q6H PRN IVP Nausea & Vomiting 03/26/19 20:00 04/25/19 19:59 03/30/19 06:20 Pantoprazole (Protonix) 40 mg EVERY 12 HOURS IVP 03/30/19 09:00 04/29/19 08:59 04/02/19 08:25 Piperacillin Sod/ Tazobactam Sod 2.25 gm/Sodium Chloride 55 ml @ 110 mls/hr Q8HR@0200,1000,1800 IV 03/31/19 10:00 04/06/19 17:59 04/02/19 10:01 Polyethylene Glycol (Miralax) 17 gm DAILYPRN PRN ORAL Constipation 03/26/19 20:00 04/25/19 19:59 Potassium Chloride 100 ml @ 50 mls/hr ONCE ONCE IVPB 04/02/19 09:00 04/02/19 10:59 04/02/19 08:26 Potassium Chloride 100 ml @ 100 mls/hr ONCE ONCE IVPB 04/02/19 11:30 04/02/19 12:29 Sodium Bicarbonate 150 ml/Dextrose 1,150 ml @ 30 mls/hr Q24H IV 03/29/19 13:30 04/28/19 13:29 Thiamine HCl 100 mg/Sodium Chloride 56 ml @ 112 mls/hr DAILY IVPB 03/29/19 09:00 04/28/19 08:59 04/02/19 10:01 Vancomycin HCl (Vanco rx to dose) 1 ea DAILY PRN MISC . 03/28/19 09:15 04/27/19 09:14 Vitamin D (Vitamin D) 2,000 intlu DAILY GT 04/01/19 09:00 04/29/19 09:59 04/02/19 08:25 Assessment/Plan Assessment/Plan: Abx: IV Vancomycin 03/27- Zosyn 03/27- Assessment: Sepsis vs SIRS- r/o bacteremia, UTI Fever, improving Leukocytosis, worsening Probable PNA -04/01 CXR: Possible new or increased right pleural effusion. Otherwise unchanged over 3 days as described, including bilateral pulmonary interstitial and airspace edema versus infiltrates -03/28 sp cx normal resp elodia -03/26 u/a neg; ucx 20-30k uro elodia -Influenza sc neg Acute on chronic pancreatitis -CT abd/p: Evidence of acute on chronic pancreatitis. No pseudocyst. Hepatomegaly with severe steatosis. Mild hiatal hernia. AVINASH -Renal US: Negative ultrasound the kidneys. Shock liver; LFTs improving -Abd US: No acute findings. Questionable mild pericholecystic fluid -acute hep panel neg Dm2 HTN tobacco and ETOH abuse COPD pancreatitis s/p multiple hernia operations x3 -first two in 2015; Last repair May 2018 with mesh placement at [facility] in [place] obesity Plan: -Continue empiric IV Vancomycin #7 and switch Zosyn #7 to Meropenem -f/u cx -Monitor CBC/CMP, temperatures -u/a w/ reflex, Bcx x2, sp cx -ETT/ICU care -aspiration precautions -HIV ab Thank you for this consultation. Will continue to follow along with you. Discussed with Lazara Marquez M.D. Apr 02, 2019 11:06
--- NOTE | 2019-04-02 12:14 | Surgery Progress Note ---
Surgery Progress Note Subjective Procedure Performed right femoral central venous catheter insertion Additional Comments Patient seen and examined bedside. Tachycardic, can be agitated at times, on sedation. Leukocytosis. Abnormal labs. Tolerating tube feeds. Objective Last 24 Hour Vital Signs Date Time Temp Pulse Resp B/P (MAP) Pulse Ox O2 Delivery O2 Flow Rate FiO2 04/02/19 12:00 50 04/02/19 12:00 Mechanical Ventilator 04/02/19 11:19 105 32 50 04/02/19 11:00 115 31 137/92 100 Mechanical Ventilator 50 04/02/19 11:00 26 Mechanical Ventilator 50 04/02/19 10:02 30 Mechanical Ventilator 50 04/02/19 10:00 30 Mechanical Ventilator 50 04/02/19 10:00 111 31 146/99 100 Mechanical Ventilator 50 04/02/19 09:30 116 35 144/102 100 Mechanical Ventilator 50 04/02/19 09:11 117 31 50 04/02/19 09:00 115 25 144/99 100 Mechanical Ventilator 50 04/02/19 09:00 26 Mechanical Ventilator 40 04/02/19 08:30 115 29 133/88 97 Mechanical Ventilator 40 04/02/19 08:00 100.0 116 27 143/92 95 Mechanical Ventilator 40 04/02/19 08:00 40 04/02/19 08:00 30 Mechanical Ventilator 40 04/02/19 08:00 Mechanical Ventilator 04/02/19 07:26 111 04/02/19 07:07 102 30 40 04/02/19 07:00 26 Mechanical Ventilator 40 04/02/19 07:00 108 28 131/87 98 Mechanical Ventilator 40 04/02/19 06:30 108 26 125/85 98 Mechanical Ventilator 40 04/02/19 06:30 108 26 04/02/19 06:00 110 27 130/85 97 Mechanical Ventilator 40 04/02/19 06:00 27 Mechanical Ventilator 40 04/02/19 05:30 110 29 126/87 98 Mechanical Ventilator 40 04/02/19 05:12 107 28 40 40 04/02/19 05:00 107 28 126/81 99 Mechanical Ventilator 40 04/02/19 05:00 28 Mechanical Ventilator 40 04/02/19 04:42 30 Mechanical Ventilator 40 04/02/19 04:30 108 31 122/82 99 Mechanical Ventilator 40 04/02/19 04:00 Mechanical Ventilator 04/02/19 04:00 28 Mechanical Ventilator 55 04/02/19 04:00 98.6 106 30 121/81 99 Mechanical Ventilator 55 04/02/19 04:00 55 04/02/19 04:00 106 04/02/19 03:30 108 24 135/91 97 Mechanical Ventilator 55 04/02/19 03:19 108 30 40 40 04/02/19 03:00 26 Mechanical Ventilator 55 04/02/19 03:00 106 26 135/90 97 Mechanical Ventilator 55 04/02/19 02:30 111 9 136/85 94 Mechanical Ventilator 55 04/02/19 02:00 26 Mechanical Ventilator 55 04/02/19 02:00 105 19 136/86 96 Mechanical Ventilator 55 04/02/19 01:30 101 7 135/87 97 Mechanical Ventilator 55 04/02/19 01:03 100 26 40 45 04/02/19 01:00 99 6 128/82 98 Mechanical Ventilator 55 04/02/19 01:00 26 Mechanical Ventilator 55 04/02/19 00:30 95 24 122/75 99 Mechanical Ventilator 55 04/02/19 00:00 Mechanical Ventilator 04/02/19 00:00 97 04/02/19 00:00 26 Mechanical Ventilator 55 04/02/19 00:00 55 04/02/19 00:00 98.5 97 26 122/78 99 Mechanical Ventilator 55 04/01/19 23:35 26 Mechanical Ventilator 55 04/01/19 23:30 98 26 121/74 99 Mechanical Ventilator 55 04/01/19 23:00 26 Mechanical Ventilator 55 04/01/19 23:00 102 26 121/79 98 Mechanical Ventilator 55 04/01/19 22:39 105 26 40 55 04/01/19 22:30 106 23 137/86 98 Mechanical Ventilator 55 04/01/19 22:00 108 26 137/85 99 Mechanical Ventilator 55 04/01/19 22:00 26 Mechanical Ventilator 55 04/01/19 21:30 107 16 152/97 98 Mechanical Ventilator 55 04/01/19 21:00 115 30 162/143 97 Mechanical Ventilator 55 04/01/19 21:00 55 04/01/19 21:00 30 Mechanical Ventilator 55 04/01/19 20:30 33 Mechanical Ventilator 40 04/01/19 20:30 123 29 154/97 95 Mechanical Ventilator 40 04/01/19 20:26 120 33 40 55 04/01/19 20:00 98.9 111 27 144/95 90 Mechanical Ventilator 40 04/01/19 20:00 Mechanical Ventilator 04/01/19 20:00 111 04/01/19 20:00 27 Mechanical Ventilator 40 04/01/19 20:00 40 04/01/19 19:30 110 28 136/87 95 Mechanical Ventilator 60 04/01/19 19:13 112 27 40 40 04/01/19 19:02 Mechanical Ventilator 04/01/19 19:00 110 27 143/85 95 Mechanical Ventilator 60 04/01/19 18:30 109 21 145/89 95 Mechanical Ventilator 60 04/01/19 18:00 Mechanical Ventilator 04/01/19 18:00 106 23 137/88 94 Mechanical Ventilator 60 04/01/19 17:30 94 19 127/80 95 Mechanical Ventilator 60 04/01/19 17:20 98 22 40 04/01/19 17:00 95 26 127/82 94 Mechanical Ventilator 60 04/01/19 17:00 Mechanical Ventilator 04/01/19 16:32 Mechanical Ventilator 04/01/19 16:00 95 04/01/19 16:00 Mechanical Ventilator 04/01/19 16:00 99.8 93 26 128/83 94 Mechanical Ventilator 60 04/01/19 16:00 Mechanical Ventilator 04/01/19 16:00 40 04/01/19 15:57 40 04/01/19 15:30 94 26 130/87 100 Mechanical Ventilator 60 04/01/19 15:18 94 26 99 Mechanical Ventilator 60 105 28 60 04/01/19 15:00 Mechanical Ventilator 04/01/19 15:00 93 26 124/78 100 Mechanical Ventilator 60 04/01/19 14:00 Mechanical Ventilator 04/01/19 14:00 99 20 132/89 100 Mechanical Ventilator 60 04/01/19 13:20 107 45 60 04/01/19 13:00 99 26 122/76 98 Mechanical Ventilator 60 04/01/19 13:00 Mechanical Ventilator I&O Intake and Output 04/01/19 04/02/19 19:00 07:00 Intake Total 936 ml 680 ml Output Total 460 ml 580 ml Balance 476 ml 100 ml Free Water 200 ml 100 ml IV Total 496 ml 340 ml Tube Feeding 240 ml 240 ml Output Urine Total 460 ml 580 ml # Bowel Movements 2 Dressing: other Wound: other Drains: other Cardiovascular: RSR Respiratory: decreased breath sounds Abdomen: soft, present bowel sounds, non-distended Extremities: edema, no cyanosis Laboratory Tests Test 04/02/19 04:13 04/02/19 08:06 White Blood Count 16.2 K/UL (4.8-10.8) H Red Blood Count 2.95 M/UL (4.20-5.40) L Hemoglobin 8.9 G/DL (12.0-16.0) L Hematocrit 26.8 % (37.0-47.0) L Mean Corpuscular Volume 91 FL (80-99) Mean Corpuscular Hemoglobin 30.3 PG (27.0-31.0) Mean Corpuscular Hemoglobin Concent 33.4 G/DL (32.0-36.0) Red Cell Distribution Width 15.9 % (11.6-14.8) H Platelet Count 144 K/UL (150-450) L Mean Platelet Volume 7.7 FL (6.5-10.1) Neutrophils (%) (Auto) 80.4 % (45.0-75.0) H Lymphocytes (%) (Auto) 10.7 % (20.0-45.0) L Monocytes (%) (Auto) 6.7 % (1.0-10.0) Eosinophils (%) (Auto) 1.4 % (0.0-3.0) Basophils (%) (Auto) 0.8 % (0.0-2.0) Sodium Level 141 MMOL/L (136-145) Potassium Level 3.3 MMOL/L (3.5-5.1) L Chloride Level 104 MMOL/L (98-107) Carbon Dioxide Level 27 MMOL/L (21-32) Anion Gap 10 mmol/L (5-15) Blood Urea Nitrogen 31 mg/dL (7-18) H Creatinine 3.5 MG/DL (0.55-1.30) H Estimat Glomerular Filtration Rate 17.5 mL/min (>60) Glucose Level 119 MG/DL (74-106) H Uric Acid 3.8 MG/DL (2.6-7.2) Calcium Level 8.7 MG/DL (8.5-10.1) Phosphorus Level 2.8 MG/DL (2.5-4.9) Magnesium Level 2.2 MG/DL (1.8-2.4) Total Bilirubin 1.3 MG/DL (0.2-1.0) H Direct Bilirubin 0.8 MG/DL (0.0-0.3) H Aspartate Amino Transf (AST/SGOT) 109 U/L (15-37) H Alanine Aminotransferase (ALT/SGPT) 510 U/L (12-78) H Alkaline Phosphatase 746 U/L (46-116) H C-Reactive Protein, Quantitative 35.1 mg/dL (0.00-0.90) H Pro-B-Type Natriuretic Peptide 563 pg/mL (0-125) H Total Protein 6.2 G/DL (6.4-8.2) L Albumin 1.8 G/DL (3.4-5.0) L Globulin 4.4 g/dL Albumin/Globulin Ratio 0.4 (1.0-2.7) L Arterial Blood pH 7.471 (7.350-7.450) Arterial Blood Partial Pressure CO2 35.0 mmHg (35.0-45.0) Arterial Blood Partial Pressure O2 66.8 mmHg (75.0-100.0) L Arterial Blood HCO3 25.0 mmol/L (22.0-26.0) Arterial Blood Oxygen Saturation 93.2 % (95-100) L Arterial Blood Base Excess 1.4 (-2-2) Amarjit Test Positive Plan Problems: (1) Abdominal pain Assessment & Plan: 43F presented with abd pain per report 01/04 generalized unable to obtain exam now that she is intubated in distress labs noted ventral incisional hernia reducible abd soft -iv fluids -okay to tube feeds advance to goal as tolerated trend labs -will order imaging when stabilized -HD as per renal -appreciate ICU care will follow with recs thank you (2) Ventral hernia (3) Acute on chronic pancreatitis Assessment & Plan: Evidence of acute on chronic pancreatitis. No pseudocyst. Hepatomegaly with severe steatosis. Mild hiatal hernia. 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 Catheter stable unlikely source of leukocytosis see note HD as per renal vent support trend labs will follow with recs Additional Comments Chest x-ray ordered Pending sputum sample Lefty Meraz Apr 02, 2019 12:14
[2019-04-02] MEDS ORDERED: Meropenem 1 GM in NS 55 ML IVPB ONE (12:30)
[2019-04-02] MEDS: Acetaminophen 650mg/20.3ml GT PRN (12:36)
[2019-04-02] MEDS: Sodium Bicarbonate 150 ML in D5W 1000ml 1,000 ML IV SCH (13:30)
--- NOTE | 2019-04-02 15:15 | Internal Med Progress Note ---
Subjective Date of Service: Apr 02, 2019 Physician Name Gilbert,Marshal Attending Physician Shree Mcintyre MD Current Medications Medications (Trade) Dose Ordered Sig/Greta Route PRN Reason Start Time Stop Time Status Last Admin Dose Admin Acetaminophen (Tylenol) 650 mg Q4H PRN GT T>100.5 03/30/19 09:45 04/29/19 09:44 04/02/19 12:36 Calcitriol (Rocatrol) 0.5 mcg DAILY GT 04/01/19 09:00 05/01/19 08:59 04/02/19 10:00 Chlorhexidine Gluconate (Hetal-Hex 2%) 1 applic DAILY@2000 TOPIC 03/27/19 20:00 04/26/19 19:59 04/01/19 20:03 Dextrose (Dextrose 50%) 25 ml Q30M PRN IV Hypoglycemia 03/28/19 11:30 04/27/19 11:29 Dextrose (Dextrose 50%) 50 ml Q30M PRN IV Hypoglycemia 03/28/19 11:30 04/27/19 11:29 Epoetin John (Epoetin John(ESRD on dialysis)) 10,000 unit THU-THU-THU SUBQ 03/30/19 21:00 04/29/19 20:59 04/01/19 20:57 Guaifenesin (Robitussin) 200 mg Q4H PRN GT For Cough 03/30/19 09:45 04/26/19 11:14 Insulin Aspart (NovoLOG) EVERY 4 HOURS SUBQ 03/28/19 17:00 04/27/19 11:59 04/02/19 12:14 Insulin Detemir (Levemir) 6 units BID SUBQ 03/30/19 09:00 04/27/19 11:59 04/02/19 08:29 Lorazepam (Ativan 2mg/ml 1ml) 1 mg Q2H PRN IV agitation 03/27/19 18:00 04/02/19 19:59 03/30/19 22:48 Meropenem 500 mg/ Sodium Chloride 55 ml @ 110 mls/hr Q24H IVPB 04/03/19 16:00 04/08/19 15:59 Midazolam HCl 100 ml @ 0 mls/hr Q24H PRN IV Agitation 03/28/19 00:15 04/04/19 00:14 04/02/19 15:00 Morphine Sulfate (Morphine Sulfate) 2 mg Q2H PRN IVP Severe Pain (Pain Scale 7-10) 03/28/19 20:15 04/04/19 20:14 03/28/19 23:05 Nitroglycerin (Ntg) 0.4 mg Q5MIN X 3 DOSES PRN SL Prn Chest Pain 03/26/19 20:15 04/25/19 20:14 Ondansetron HCl (Zofran) 4 mg Q6H PRN IVP Nausea & Vomiting 03/26/19 20:00 04/25/19 19:59 03/30/19 06:20 Pantoprazole (Protonix) 40 mg EVERY 12 HOURS IVP 03/30/19 09:00 04/29/19 08:59 04/02/19 08:25 Polyethylene Glycol (Miralax) 17 gm DAILYPRN PRN ORAL Constipation 03/26/19 20:00 04/25/19 19:59 Sodium Bicarbonate 150 ml/Dextrose 1,150 ml @ 30 mls/hr Q24H IV 03/29/19 13:30 04/28/19 13:29 Thiamine HCl 100 mg/Sodium Chloride 56 ml @ 112 mls/hr DAILY IVPB 03/29/19 09:00 04/28/19 08:59 04/02/19 10:01 Vancomycin HCl (Vanco rx to dose) 1 ea DAILY PRN MISC . 03/28/19 09:15 04/27/19 09:14 Vitamin D (Vitamin D) 2,000 intlu DAILY GT 04/01/19 09:00 04/29/19 09:59 04/02/19 08:25 Allergies: Coded Allergies: No Known Allergies (Unverified , 08/04/18) ROS Limited/Unobtainable: Yes Subjective 43 YO F admitted with diabetic ketoacidosis. Now ARDS and respiratory failure. Intubated and sedated. Cover for Int Med-Dr Mcintyre. ICU Objective Last Vital Signs Date Time Temp Pulse Resp B/P (MAP) Pulse Ox O2 Delivery O2 Flow Rate FiO2 04/02/19 15:11 104 33 50 04/02/19 15:00 Mechanical Ventilator 04/02/19 14:00 136/90 98 04/02/19 13:06 100.7 03/27/19 15:00 4.0 Laboratory Tests Test 04/02/19 04:13 04/02/19 08:06 White Blood Count 16.2 K/UL (4.8-10.8) H Red Blood Count 2.95 M/UL (4.20-5.40) L Hemoglobin 8.9 G/DL (12.0-16.0) L Hematocrit 26.8 % (37.0-47.0) L Mean Corpuscular Volume 91 FL (80-99) Mean Corpuscular Hemoglobin 30.3 PG (27.0-31.0) Mean Corpuscular Hemoglobin Concent 33.4 G/DL (32.0-36.0) Red Cell Distribution Width 15.9 % (11.6-14.8) H Platelet Count 144 K/UL (150-450) L Mean Platelet Volume 7.7 FL (6.5-10.1) Neutrophils (%) (Auto) 80.4 % (45.0-75.0) H Lymphocytes (%) (Auto) 10.7 % (20.0-45.0) L Monocytes (%) (Auto) 6.7 % (1.0-10.0) Eosinophils (%) (Auto) 1.4 % (0.0-3.0) Basophils (%) (Auto) 0.8 % (0.0-2.0) Sodium Level 141 MMOL/L (136-145) Potassium Level 3.3 MMOL/L (3.5-5.1) L Chloride Level 104 MMOL/L (98-107) Carbon Dioxide Level 27 MMOL/L (21-32) Anion Gap 10 mmol/L (5-15) Blood Urea Nitrogen 31 mg/dL (7-18) H Creatinine 3.5 MG/DL (0.55-1.30) H Estimat Glomerular Filtration Rate 17.5 mL/min (>60) Glucose Level 119 MG/DL (74-106) H Uric Acid 3.8 MG/DL (2.6-7.2) Calcium Level 8.7 MG/DL (8.5-10.1) Phosphorus Level 2.8 MG/DL (2.5-4.9) Magnesium Level 2.2 MG/DL (1.8-2.4) Total Bilirubin 1.3 MG/DL (0.2-1.0) H Direct Bilirubin 0.8 MG/DL (0.0-0.3) H Aspartate Amino Transf (AST/SGOT) 109 U/L (15-37) H Alanine Aminotransferase (ALT/SGPT) 510 U/L (12-78) H Alkaline Phosphatase 746 U/L (46-116) H C-Reactive Protein, Quantitative 35.1 mg/dL (0.00-0.90) H Pro-B-Type Natriuretic Peptide 563 pg/mL (0-125) H Total Protein 6.2 G/DL (6.4-8.2) L Albumin 1.8 G/DL (3.4-5.0) L Globulin 4.4 g/dL Albumin/Globulin Ratio 0.4 (1.0-2.7) L Arterial Blood pH 7.471 (7.350-7.450) Arterial Blood Partial Pressure CO2 35.0 mmHg (35.0-45.0) Arterial Blood Partial Pressure O2 66.8 mmHg (75.0-100.0) L Arterial Blood HCO3 25.0 mmol/L (22.0-26.0) Arterial Blood Oxygen Saturation 93.2 % (95-100) L Arterial Blood Base Excess 1.4 (-2-2) Amarjit Test Positive Intake and Output 04/01/19 04/02/19 19:00 07:00 Intake Total 936 ml 680 ml Output Total 460 ml 580 ml Balance 476 ml 100 ml Free Water 200 ml 100 ml IV Total 496 ml 340 ml Tube Feeding 240 ml 240 ml Output Urine Total 460 ml 580 ml # Bowel Movements 2 Assessment/Plan Assessment/Plan ASSESSMENT: This is a 43-year-old female with: 1. Abdominal pain. 2. Acute on chronic pancreatitis. 3. Diabetic ketoacidosis. 4. Hyperglycemia. 5. Renal failure. 6. Diabetes type 2. 7. Hypertension. 8. Ventral hernia. 9. ARDs/bilateral infiltrates/Respiratory failure 10. Elevated liver funct tests 11. Thrombocytopenia=improving TREATMENT: 1. Abdominal pain/acute pancreatitis. A Gastroenterology consultation has been obtained with Dr. Monty Jaimes. We will follow recommendations of Gastroenterology. The patient is currently NPO. 2. Diabetic ketoacidosis/hyperglycemia. An Endocrinology consultation= Dr. Joseph Saleem. The patient has been placed on an aspart insulin sliding scale and levemir. We will follow recommendations of Endocrinology. 3. Renal failure. A Nephrology consultation has been obtained with Dr. Lopez. Hemodialysis 04/02/19 4. Hypertension. Continue amlodipine as above. 5. Ventral hernia. 6. Mechanical vent per pulmonary=Balfe 7. ABX=meropenem and Marshal Mcgowan MD Apr 02, 2019 15:15
[2019-04-02] MEDS ORDERED: Tubing IV Secondary IV ONE (15:33)
[2019-04-02] MEDS ORDERED: NS 275ml ONE ×2 (15:33→15:42)
--- NOTE | 2019-04-02 17:10 | General Progress Note ---
Assessment/Plan Status: unchanged Assessment/Plan: Assessment/Plan: anemia respiratory failure DM elevated LFTS shock liver DKA h/p pancreatitis elevated Cr Recommendations NGTF DM control repeat LFTS>>>improving fu labs hepatitis panel stool ob positive ppi GI procedures on hold Subjective Allergies: Coded Allergies: No Known Allergies (Unverified , 08/04/18) Subjective above noted d/w manager staffing patient intubated, awake restrained HEENT ETT, OGT supple Coarse BS RR abd soft ND no edema Objective Last 24 Hour Vital Signs Date Time Temp Pulse Resp B/P (MAP) Pulse Ox O2 Delivery O2 Flow Rate FiO2 04/02/19 16:36 100 26 50 04/02/19 16:30 101 26 146/105 100 Mechanical Ventilator 50 04/02/19 16:00 Mechanical Ventilator 04/02/19 16:00 26 Mechanical Ventilator 50 04/02/19 16:00 100.3 97 26 118/82 98 Mechanical Ventilator 50 04/02/19 16:00 50 04/02/19 15:30 105 27 132/89 98 Mechanical Ventilator 50 04/02/19 15:11 104 33 50 04/02/19 15:00 30 Mechanical Ventilator 50 04/02/19 15:00 107 43 127/92 97 Mechanical Ventilator 50 04/02/19 14:30 107 31 139/100 97 Mechanical Ventilator 50 04/02/19 14:00 109 30 136/90 98 Mechanical Ventilator 50 04/02/19 14:00 26 Mechanical Ventilator 50 04/02/19 13:30 109 25 138/93 98 Mechanical Ventilator 50 04/02/19 13:06 100.7 04/02/19 13:00 100.7 113 34 128/88 99 Mechanical Ventilator 50 04/02/19 13:00 108 32 50 04/02/19 13:00 26 Mechanical Ventilator 50 04/02/19 12:30 114 28 133/89 99 Mechanical Ventilator 50 04/02/19 12:00 50 04/02/19 12:00 30 Mechanical Ventilator 50 04/02/19 12:00 Mechanical Ventilator 04/02/19 12:00 100.6 113 29 127/91 100 Mechanical Ventilator 50 04/02/19 11:30 117 27 133/90 99 Mechanical Ventilator 50 04/02/19 11:23 113 04/02/19 11:19 105 32 50 04/02/19 11:00 115 31 137/92 100 Mechanical Ventilator 50 04/02/19 11:00 26 Mechanical Ventilator 50 04/02/19 10:02 30 Mechanical Ventilator 50 04/02/19 10:00 30 Mechanical Ventilator 50 04/02/19 10:00 111 31 146/99 100 Mechanical Ventilator 50 04/02/19 09:30 116 35 144/102 100 Mechanical Ventilator 50 04/02/19 09:11 117 31 50 04/02/19 09:00 115 25 144/99 100 Mechanical Ventilator 50 04/02/19 09:00 26 Mechanical Ventilator 40 04/02/19 08:30 115 29 133/88 97 Mechanical Ventilator 40 04/02/19 08:00 100.0 116 27 143/92 95 Mechanical Ventilator 40 04/02/19 08:00 40 04/02/19 08:00 30 Mechanical Ventilator 40 04/02/19 08:00 Mechanical Ventilator 04/02/19 07:26 111 04/02/19 07:07 102 30 40 04/02/19 07:00 26 Mechanical Ventilator 40 04/02/19 07:00 108 28 131/87 98 Mechanical Ventilator 40 04/02/19 06:30 108 26 125/85 98 Mechanical Ventilator 40 04/02/19 06:30 108 26 04/02/19 06:00 110 27 130/85 97 Mechanical Ventilator 40 04/02/19 06:00 27 Mechanical Ventilator 40 04/02/19 05:30 110 29 126/87 98 Mechanical Ventilator 40 04/02/19 05:12 107 28 40 40 04/02/19 05:00 107 28 126/81 99 Mechanical Ventilator 40 04/02/19 05:00 28 Mechanical Ventilator 40 04/02/19 04:42 30 Mechanical Ventilator 40 04/02/19 04:30 108 31 122/82 99 Mechanical Ventilator 40 04/02/19 04:00 Mechanical Ventilator 04/02/19 04:00 28 Mechanical Ventilator 55 04/02/19 04:00 98.6 106 30 121/81 99 Mechanical Ventilator 55 04/02/19 04:00 55 04/02/19 04:00 106 04/02/19 03:30 108 24 135/91 97 Mechanical Ventilator 55 04/02/19 03:19 108 30 40 40 04/02/19 03:00 26 Mechanical Ventilator 55 04/02/19 03:00 106 26 135/90 97 Mechanical Ventilator 55 04/02/19 02:30 111 9 136/85 94 Mechanical Ventilator 55 04/02/19 02:00 26 Mechanical Ventilator 55 04/02/19 02:00 105 19 136/86 96 Mechanical Ventilator 55 04/02/19 01:30 101 7 135/87 97 Mechanical Ventilator 55 04/02/19 01:03 100 26 40 45 04/02/19 01:00 99 6 128/82 98 Mechanical Ventilator 55 04/02/19 01:00 26 Mechanical Ventilator 55 04/02/19 00:30 95 24 122/75 99 Mechanical Ventilator 55 04/02/19 00:00 Mechanical Ventilator 04/02/19 00:00 97 04/02/19 00:00 26 Mechanical Ventilator 55 04/02/19 00:00 55 04/02/19 00:00 98.5 97 26 122/78 99 Mechanical Ventilator 55 04/01/19 23:35 26 Mechanical Ventilator 55 04/01/19 23:30 98 26 121/74 99 Mechanical Ventilator 55 04/01/19 23:00 26 Mechanical Ventilator 55 04/01/19 23:00 102 26 121/79 98 Mechanical Ventilator 55 04/01/19 22:39 105 26 40 55 04/01/19 22:30 106 23 137/86 98 Mechanical Ventilator 55 04/01/19 22:00 108 26 137/85 99 Mechanical Ventilator 55 04/01/19 22:00 26 Mechanical Ventilator 55 04/01/19 21:30 107 16 152/97 98 Mechanical Ventilator 55 04/01/19 21:00 115 30 162/143 97 Mechanical Ventilator 55 04/01/19 21:00 55 04/01/19 21:00 30 Mechanical Ventilator 55 04/01/19 20:30 33 Mechanical Ventilator 40 04/01/19 20:30 123 29 154/97 95 Mechanical Ventilator 40 04/01/19 20:26 120 33 40 55 04/01/19 20:00 98.9 111 27 144/95 90 Mechanical Ventilator 40 04/01/19 20:00 Mechanical Ventilator 04/01/19 20:00 111 04/01/19 20:00 27 Mechanical Ventilator 40 04/01/19 20:00 40 04/01/19 19:30 110 28 136/87 95 Mechanical Ventilator 60 04/01/19 19:13 112 27 40 40 04/01/19 19:02 Mechanical Ventilator 04/01/19 19:00 110 27 143/85 95 Mechanical Ventilator 60 04/01/19 18:30 109 21 145/89 95 Mechanical Ventilator 60 04/01/19 18:00 Mechanical Ventilator 04/01/19 18:00 106 23 137/88 94 Mechanical Ventilator 60 04/01/19 17:30 94 19 127/80 95 Mechanical Ventilator 60 04/01/19 17:20 98 22 40 Intake and Output 04/01/19 04/02/19 19:00 07:00 Intake Total 936 ml 680 ml Output Total 460 ml 580 ml Balance 476 ml 100 ml Free Water 200 ml 100 ml IV Total 496 ml 340 ml Tube Feeding 240 ml 240 ml Output Urine Total 460 ml 580 ml # Bowel Movements 2 Laboratory Tests 04/02/19 04:13: White Blood Count 16.2H, Red Blood Count 2.95L, Hemoglobin 8.9L, Hematocrit 26.8L, Mean Corpuscular Volume 91, Mean Corpuscular Hemoglobin 30.3, Mean Corpuscular Hemoglobin Concent 33.4, Red Cell Distribution Width 15.9H, Platelet Count 144L, Mean Platelet Volume 7.7, Neutrophils (%) (Auto) 80.4H, Lymphocytes (%) (Auto) 10.7L, Monocytes (%) (Auto) 6.7, Eosinophils (%) (Auto) 1.4, Basophils (%) (Auto) 0.8, Sodium Level 141, Potassium Level 3.3L, Chloride Level 104, Carbon Dioxide Level 27, Anion Gap 10, Blood Urea Nitrogen 31H, Creatinine 3.5H, Estimat Glomerular Filtration Rate 17.5, Glucose Level 119H, Uric Acid 3.8, Calcium Level 8.7, Phosphorus Level 2.8, Magnesium Level 2.2, Total Bilirubin 1.3H, Direct Bilirubin 0.8H, Aspartate Amino Transf (AST/SGOT) 109H, Alanine Aminotransferase (ALT/SGPT) 510H, Alkaline Phosphatase 746H, C- Reactive Protein, Quantitative 35.1H, Pro-B-Type Natriuretic Peptide 563H, Total Protein 6.2L, Albumin 1.8L, Globulin 4.4, Albumin/Globulin Ratio 0.4L 04/02/19 08:06: Arterial Blood pH 7.471H, Arterial Blood Partial Pressure CO2 35.0, Arterial Blood Partial Pressure O2 66.8L, Arterial Blood HCO3 25.0, Arterial Blood Oxygen Saturation 93.2L, Arterial Blood Base Excess 1.4, Amarjit Test Positive Height (Feet): 5 Height (Inches): 2.00 Weight (Pounds): 186 Deyanira Harp MD Apr 02, 2019 17:10
--- NOTE | 2019-04-02 17:49 | Pulmonolgy Critical Care Note ---
Critical Care - Asmt/Plan Assessment/Plan: Pulmonary Critical Care Progress Note HPI Patient is a 43-year-old woman with past history of Diabetes, Hypertension, Chronic Obstructive Pulmonary Disease, admitted with Acute on Chronic Pancreatitis, elevated Liver Functions, Thrombocytopenia. Had c/o abdominal pain , nausea and vomiting, shortness of breath, coughing. She has a history of pancreatitis, noted to have features of Pancreatitis as well as azotemia, elevated liver function tests. She has history of multiple hernia operations, last in May 2018. No fevers or chills. Denies chest pain. No other aggravating relieving factors. Denies any other associated symptoms. Patient noted to be in Diabetic Ketoacidosis on admission - remains on Insulin gtt, Metabolic acidosis, ARDS/fluid overload, requiring intubation and mechanical ventilation, Acute Renal Failure, s/p Hemodialysis Improving PEEP/FIO2 Allergies: No Known Allergies Past Medical History: Diabetes, Hypertension, Chronic Obstructive Pulmonary Disease, Pancreatitis Physical Exam Vital Signs Noted General Appearance: sedated on the ventilator Head: normocephalic, atraumatic Eyes: bilateral eye normal inspection, bilateral PERRL ENT: moist mm, ETT Neck: no LN, no masses Respiratory: bilateral rhonchi, BS equal bilaterally Cardiovascular: HS1, HS2 normal, moderate edema, tachycardia Gastrointestinal: normal bowel sounds, soft, non-distended, tenderness - epigastric, hernia - ventral Musculoskeletal: well perfused, moving all limbs Neurologic: no seizures, no focal signs Impression: Pneumonia vs ARDS Respiratory Failure with high FIO2 and PEEP requirements, remains in positive fluid balance despite diuresis Acute on Chronic Pancreatitis Hypocalcemia sp replacement Hypomagnesemia s/p replacement Reduced Albumin level Worsening Acute Renal Failurefor HD Elevated Liver Function Tests Significant previous Alcohol abuse per her partner Thrombocytopenia GI bleed - on Protonix gtt Diabetic ketoacidoses Severe metabolic acidosis H/o Hypertension H/o Chronic Obstructive Pulmonary Disease, H/o Multiple Previous Hernia Surgeries Plan ACVC, Vt 450,RR 24, adjust PEEP 8, adjust FIO2 - wean for [id number]% - currently 50%, wean ventilator as tolerated CXR noted Dialysis per renal, still making some urine Monitor labs, Repeat ABG PRN HHN Broad spectrum antibiotics/ID PRN Sedation - lighten in AM PPX: SCD/Protonix Insulin gtt DW PMD Labs noted Echo: Preserved LV function EKG: Rate: tachycardiac Rhythm: NSR ST Segments: no acute changes ASA given to the pt in ED: No Chest X-Ray 03/26/2019: no consolidation, no effusion, no pneumothorax, no acute cardiopulmonary disease CXR: 03/27/2019: worsening bilateral infiltrates, low lung volumes, ETT low CT A/P: Lung bases: No mass. No consolidation. ABDOMEN: Liver: Unremarkable. Gallbladder and bile ducts: Unremarkable. Pancreas: Stranding around the pancreas. Multiple calcifications within the pancreas.. Spleen: Unremarkable. Adrenals: Unremarkable. Kidneys and ureters: No hydronephrosis. Stomach and bowel: No bowel obstruction. No bowel wall thickening. Fatty infiltration of the colonic wall. Mild hiatal hernia. PELVIS: Appendix: No evidence of appendicitis. Bladder: Unremarkable. Reproductive: Unremarkable. ABDOMEN and PELVIS: Intraperitoneal space: Unremarkable. Bones/joints: No acute fractures. Soft tissues: Fat containing periumbilical hernia. Vasculature: No abdominal aortic aneurysm. Lymph nodes: No enlarged lymph nodes. Critical Care - Objective Last 24 Hour Vital Signs Date Time Temp Pulse Resp B/P (MAP) Pulse Ox O2 Delivery O2 Flow Rate FiO2 04/02/19 17:30 106 29 128/84 98 Mechanical Ventilator 50 04/02/19 17:00 101 31 113/87 98 Mechanical Ventilator 50 04/02/19 16:36 100 26 50 04/02/19 16:30 101 26 146/105 100 Mechanical Ventilator 50 04/02/19 16:00 Mechanical Ventilator 04/02/19 16:00 26 Mechanical Ventilator 50 04/02/19 16:00 100.3 97 26 118/82 98 Mechanical Ventilator 50 04/02/19 16:00 50 04/02/19 15:32 107 04/02/19 15:30 105 27 132/89 98 Mechanical Ventilator 50 04/02/19 15:11 104 33 50 04/02/19 15:00 30 Mechanical Ventilator 50 04/02/19 15:00 107 43 127/92 97 Mechanical Ventilator 50 04/02/19 14:30 107 31 139/100 97 Mechanical Ventilator 50 04/02/19 14:00 109 30 136/90 98 Mechanical Ventilator 50 04/02/19 14:00 26 Mechanical Ventilator 50 04/02/19 13:30 109 25 138/93 98 Mechanical Ventilator 50 04/02/19 13:06 100.7 04/02/19 13:00 100.7 113 34 128/88 99 Mechanical Ventilator 50 04/02/19 13:00 108 32 50 04/02/19 13:00 26 Mechanical Ventilator 50 04/02/19 12:30 114 28 133/89 99 Mechanical Ventilator 50 04/02/19 12:00 50 04/02/19 12:00 30 Mechanical Ventilator 50 04/02/19 12:00 Mechanical Ventilator 04/02/19 12:00 100.6 113 29 127/91 100 Mechanical Ventilator 50 04/02/19 11:30 117 27 133/90 99 Mechanical Ventilator 50 04/02/19 11:23 113 04/02/19 11:19 105 32 50 04/02/19 11:00 115 31 137/92 100 Mechanical Ventilator 50 04/02/19 11:00 26 Mechanical Ventilator 50 04/02/19 10:02 30 Mechanical Ventilator 50 04/02/19 10:00 30 Mechanical Ventilator 50 04/02/19 10:00 111 31 146/99 100 Mechanical Ventilator 50 04/02/19 09:30 116 35 144/102 100 Mechanical Ventilator 50 04/02/19 09:11 117 31 50 04/02/19 09:00 115 25 144/99 100 Mechanical Ventilator 50 04/02/19 09:00 26 Mechanical Ventilator 40 04/02/19 08:30 115 29 133/88 97 Mechanical Ventilator 40 04/02/19 08:00 100.0 116 27 143/92 95 Mechanical Ventilator 40 04/02/19 08:00 40 04/02/19 08:00 30 Mechanical Ventilator 40 04/02/19 08:00 Mechanical Ventilator 04/02/19 07:26 111 04/02/19 07:07 102 30 40 04/02/19 07:00 26 Mechanical Ventilator 40 04/02/19 07:00 108 28 131/87 98 Mechanical Ventilator 40 04/02/19 06:30 108 26 125/85 98 Mechanical Ventilator 40 04/02/19 06:30 108 26 04/02/19 06:00 110 27 130/85 97 Mechanical Ventilator 40 04/02/19 06:00 27 Mechanical Ventilator 40 04/02/19 05:30 110 29 126/87 98 Mechanical Ventilator 40 04/02/19 05:12 107 28 40 40 04/02/19 05:00 107 28 126/81 99 Mechanical Ventilator 40 04/02/19 05:00 28 Mechanical Ventilator 40 04/02/19 04:42 30 Mechanical Ventilator 40 04/02/19 04:30 108 31 122/82 99 Mechanical Ventilator 40 04/02/19 04:00 Mechanical Ventilator 04/02/19 04:00 28 Mechanical Ventilator 55 04/02/19 04:00 98.6 106 30 121/81 99 Mechanical Ventilator 55 04/02/19 04:00 55 04/02/19 04:00 106 04/02/19 03:30 108 24 135/91 97 Mechanical Ventilator 55 04/02/19 03:19 108 30 40 40 04/02/19 03:00 26 Mechanical Ventilator 55 04/02/19 03:00 106 26 135/90 97 Mechanical Ventilator 55 04/02/19 02:30 111 9 136/85 94 Mechanical Ventilator 55 04/02/19 02:00 26 Mechanical Ventilator 55 04/02/19 02:00 105 19 136/86 96 Mechanical Ventilator 55 04/02/19 01:30 101 7 135/87 97 Mechanical Ventilator 55 04/02/19 01:03 100 26 40 45 04/02/19 01:00 99 6 128/82 98 Mechanical Ventilator 55 04/02/19 01:00 26 Mechanical Ventilator 55 04/02/19 00:30 95 24 122/75 99 Mechanical Ventilator 55 04/02/19 00:00 Mechanical Ventilator 04/02/19 00:00 97 04/02/19 00:00 26 Mechanical Ventilator 55 04/02/19 00:00 55 04/02/19 00:00 98.5 97 26 122/78 99 Mechanical Ventilator 55 04/01/19 23:35 26 Mechanical Ventilator 55 04/01/19 23:30 98 26 121/74 99 Mechanical Ventilator 55 04/01/19 23:00 26 Mechanical Ventilator 55 04/01/19 23:00 102 26 121/79 98 Mechanical Ventilator 55 04/01/19 22:39 105 26 40 55 04/01/19 22:30 106 23 137/86 98 Mechanical Ventilator 55 04/01/19 22:00 108 26 137/85 99 Mechanical Ventilator 55 04/01/19 22:00 26 Mechanical Ventilator 55 04/01/19 21:30 107 16 152/97 98 Mechanical Ventilator 55 04/01/19 21:00 115 30 162/143 97 Mechanical Ventilator 55 04/01/19 21:00 55 04/01/19 21:00 30 Mechanical Ventilator 55 04/01/19 20:30 33 Mechanical Ventilator 40 04/01/19 20:30 123 29 154/97 95 Mechanical Ventilator 40 04/01/19 20:26 120 33 40 55 04/01/19 20:00 98.9 111 27 144/95 90 Mechanical Ventilator 40 04/01/19 20:00 Mechanical Ventilator 04/01/19 20:00 111 04/01/19 20:00 27 Mechanical Ventilator 40 04/01/19 20:00 40 04/01/19 19:30 110 28 136/87 95 Mechanical Ventilator 60 04/01/19 19:13 112 27 40 40 04/01/19 19:02 Mechanical Ventilator 04/01/19 19:00 110 27 143/85 95 Mechanical Ventilator 60 04/01/19 18:30 109 21 145/89 95 Mechanical Ventilator 60 04/01/19 18:00 Mechanical Ventilator 04/01/19 18:00 106 23 137/88 94 Mechanical Ventilator 60 Accucheck: 161 Critical Care - Subjective ROS Limited/Unobtainable: No FI02: 50 Vent Support Breath Rate: 26 Vent Support Mode: AC Vent Tidal Volume: 450 Sputum Amount: Small PEEP: 8.0 PIP: 33 Tube Feeding Amount: 30 I&O: Intake and Output 04/01/19 04/02/19 19:00 07:00 Intake Total 936 ml 680 ml Output Total 460 ml 580 ml Balance 476 ml 100 ml Free Water 200 ml 100 ml IV Total 496 ml 340 ml Tube Feeding 240 ml 240 ml Output Urine Total 460 ml 580 ml # Bowel Movements 2 ET-Tube: 7.5 ET Position: 23 Julio Rodrigez MD Apr 02, 2019 17:49
[2019-04-02] MEDS: Dyna-Hex 2% Top Sol 2oz TOPIC SCH (20:57)
[2019-04-03] VITALS (39 sets, daily range): BP systolic 107–154; BP diastolic 68–102
[2019-04-03] MEDS: NovoLOG Insulin Flexpen SUBQ SCH ×6 (01:27→23:42)
[2019-04-03] MEDS: Versed 50mg/D5W 100ml 100 ML IV PRN ×3 (03:14→20:04)
--- NOTE | 2019-04-03 03:25 | Emergency Room Report ---
History of Present Illness General Chief Complaint: Abdominal Pain Source: Medical Record Present Illness HPI This is a 43-year-old female who was admitted to the ICU for acute respiratory failure requiring intubation. I was asked by the critical care doctor to evaluate the patient for respiratory distress. It appeared that the patient has an air leak and the cough to the endotracheal tube unable to be inflated. She is not getting the volume. Evaluate the patient, patient has wheezing. She is on the ventilator and volume was only in the 300 tidal volume. I inflated the cuff but the balloon keep deflating. This is consistent with an air leak. I proceeded to shout the endotracheal tube. I used a bougie and exchange of a 7.5 endotracheal tube over the bougie. After this balloon was inflated and patient was getting Valium. Breathing treatment was also given. Chest x-ray ordered. Allergies: Coded Allergies: No Known Allergies (Unverified , 08/04/18) Patient History Past Medical History: see triage record, old chart reviewed Past Surgical History: other Pertinent Family History: none Social History: Denies: smoking Now: No Immunizations: other Reviewed Nursing Documentation: PMH: Agreed; PSxH: Agreed Nursing Documentation-PMH Past Medical History: No History, Except For Hx Cardiac Problems: Yes Hx Hypertension: Yes Hx Pacemaker: No Hx Asthma: No Hx COPD: No Hx Diabetes: Yes - Type II Hx Cancer: No Hx Gastrointestinal Problems: Yes - Hernia repair 2019 Hx Dialysis: No Hx Neurological Problems: No Hx Cerebrovascular Accident: No Hx Seizures: No Physical Exam Vital Signs Date Time Temp Pulse Resp B/P (MAP) Pulse Ox O2 Delivery O2 Flow Rate FiO2 03/30/19 07:00 32 Mechanical Ventilator 100 03/30/19 07:00 120 120/90 100 03/30/19 08:00 99.3 04/02/19 23:15 4.0 Procedures Intubation Intubation : Consent: Emergent Intubation Method: orotracheal Tube Size (cm): 7.5 Breath Sounds after Intubation: equal Intubation Complications: no complications Post Intubation Xray: Yes Progress/Xray Impression: Endotracheal tube in good position. Bilateral infiltrates versus edema Attempts: One Patient Tolerated: Well Complications: None Progress I disconnected the patient from the ventilator. I placed a blue G over her old endotracheal tube. I remove the old endotracheal tube. I placed a new 7.5 endotracheal tube over the bougie. This was secured at centimeter at the lip. The bougie was then removed. Patient was placed back on the ventilator. Good air movement. No air leak. Medical Decision Making Diagnostic Impression: Primary Impression: DKA (diabetic ketoacidoses) Qualified Codes: E13.10 - Other specified diabetes mellitus with ketoacidosis without coma Additional Impressions: Renal insufficiency Acute on chronic pancreatitis Respiratory failure Qualified Codes: J96.01 - Acute respiratory failure with hypoxia ER Course Patient was in respiratory distress secondary to pulmonary edema and sepsis/ pneumonia. She had an air leak to the endotracheal tube balloon. New endotracheal tube placed. No complication. Chest x-ray showed bilateral infiltrate versus pulmonary edema versus ARDS. No pneumothorax. Chest X-Ray Diagnostic Results Chest X-Ray Diagnostic Results : Chest X-Ray Ordered: Yes # of Views/Limited/Complete: 1 View Indication: Shortness of Breath EP Interpretation: Yes Interpretation: no pneumothorax, other - Tracheal tube in good position. ARDS versus pulmonary edema versus multi lobar infiltrates Impression: Other - ARDSpulmonary edema Electronically Signed by: Addison Ward MD Last Vital Signs Date Time Temp Pulse Resp B/P (MAP) Pulse Ox O2 Delivery O2 Flow Rate FiO2 04/03/19 03:14 30 Mechanical Ventilator 4.0 50 04/03/19 03:00 124 04/03/19 03:00 146/102 97 04/03/19 00:00 98.0 Status: improved Disposition: ADMITTED INPATIENT Condition: Critical Referrals: Shree Mcintyre MD (PCP) Addison Ward MD Apr 03, 2019 03:25
--- NOTE | 2019-04-03 03:49 | Diagnostic Imaging Report ---
EXAM: XR Chest, 1 View CLINICAL HISTORY: S/P INTUB TECHNIQUE: Frontal view of the chest. COMPARISON: 04/01/19 IMPRESSION: Right central line terminates in the cavoatrial junction. ET tube terminates 2.1 cm on the amrita. NG tube tip terminates in the mid stomach.
--- NOTE | 2019-04-03 03:56 | Diagnostic Imaging Report ---
EXAM: XR Abdomen, 2 Views CLINICAL HISTORY: NGT TECHNIQUE: Frontal view of the abdomen/pelvis with upright view of the abdomen. COMPARISON: 03/28/2019 IMPRESSION: NG tube side port terminates in the proximal stomach. Recommend advancing 5 cm.
[2019-04-03 06:08] LABS: PHOSPHORUS 2.5 MG/DL (2.5-4.9)
[2019-04-03 06:09] LABS: APPEARANCE,URINE CLOUDY; BILIRUBIN, URINE NEGATIVE (NEGATIVE); GLUCOSE, URINE (UA) NEGATIVE (NEGATIVE); KETONES,URINE NEGATIVE (NEGATIVE); LEUKOCYTE ESTERASE ,URINE 2+ (NEGATIVE); NITRITE,URINE NEGATIVE (NEGATIVE); PH,URINE 5 (4.5-8.0); PROTEIN,URINE 2+ (NEGATIVE); UROBILINOGEN,URINE 1 MG/DL (0.0-1.0)
[2019-04-03 06:44] LABS: COLOR,URINE YELLOW
[2019-04-03] MEDS: Acetaminophen 650mg/20.3ml GT PRN ×2 (06:47→20:11)
[2019-04-03 06:53] LABS: ALANINE AMINOTRANSFERASE 364 U/L (12-78); ALBUMIN 1.9 G/DL (3.4-5.0); ALBUMIN/GLOBULIN RATIO 0.4 (1.0-2.7); ALKALINE PHOSPHATASE 899 U/L (46-116); ANION GAP 11 mmol/L (5-15); ASPARTATE AMINO TRANSFERASE 104 U/L (15-37); BILIRUBIN,TOTAL 1.1 MG/DL (0.2-1.0); BLOOD UREA NITROGEN 20 mg/dL (7-18); CALCIUM 8.7 MG/DL (8.5-10.1); CARBON DIOXIDE 27 MMOL/L (21-32); CHLORIDE 103 MMOL/L (98-107); CREATININE 2.5 MG/DL (0.55-1.30); POTASSIUM 3.3 MMOL/L (3.5-5.1); SODIUM 140 MMOL/L (136-145)
[2019-04-03 06:57] LABS: BILIRUBIN,DIRECT 0.7 MG/DL (0.0-0.3)
[2019-04-03] MEDS ORDERED: Vancomycin 1gm/D5W 275ml IVPB ONE ×2 (08:00)
[2019-04-03 08:31] LABS: BASOPHILS % (AUTO) 0.6 % (0.0-2.0); EOSINOPHILS % (AUTO) 1.1 % (0.0-3.0); HEMATOCRIT 27.5 % (37.0-47.0); HEMOGLOBIN 9.1 G/DL (12.0-16.0); LYMPHOCYTES % (AUTO) 9.8 % (20.0-45.0); MEAN CORPUSCULAR VOLUME 91 FL (80-99); MONOCYTES % (AUTO) 5.3 % (1.0-10.0); NEUTROPHILS % (AUTO) 83.2 % (45.0-75.0); PLATELET COUNT 153 K/UL (150-450); RED BLOOD COUNT 3.02 M/UL (4.20-5.40); RED CELL DISTRIBUTION WIDTH 16.1 % (11.6-14.8); WHITE BLOOD COUNT 16.9 K/UL (4.8-10.8)
[2019-04-03] MEDS: Thiamine HCl 100 MG in NS 55 ML IVPB SCH (09:43)
[2019-04-03] MEDS: Pantoprazole Inj IVP SCH ×2 (09:43→20:11)
[2019-04-03] MEDS: Levemir Flexpen SUBQ SCH ×2 (09:46→17:58)
--- NOTE | 2019-04-03 10:58 | Nephrology Progress Note ---
Assessment/Plan Problem List: (1) Acute renal failure (ARF) (2) Respiratory failure (3) DKA (diabetic ketoacidoses) (4) LFT elevation (5) Electrolyte imbalance Assessment: Low Mag and Low Ca (6) Thrombocytopathia Assessment Acute respiratory failure Acute renal failure high LFTs, thrombocytopenia ? HUS ? 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 Ca and Mag IV Vit K Vit D Echo Hyperkinetic wall motion. Left ventricular ejection fraction estimated to be 55-60 %. Moderate left ventricular hypertrophy by 2D. Abd CT: Evidence of acute on chronic pancreatitis. No pseudocyst. Hepatomegaly with severe steatosis. Subjective ROS Limited/Unobtainable: Yes Objective Objective Last 24 Hour Vital Signs Date Time Temp Pulse Resp B/P (MAP) Pulse Ox O2 Delivery O2 Flow Rate FiO2 04/03/19 10:44 106 32 40 04/03/19 09:30 98.6 99 26 124/85 96 Mechanical Ventilator 40 04/03/19 09:06 99 26 40 04/03/19 09:00 100 26 120/82 99 Mechanical Ventilator 40 04/03/19 08:30 104 26 121/81 98 Mechanical Ventilator 40 04/03/19 08:00 99.8 108 26 126/80 98 Mechanical Ventilator 40 04/03/19 07:30 108 26 135/90 99 Mechanical Ventilator 50 04/03/19 07:17 99.8 04/03/19 07:00 110 28 142/97 100 Mechanical Ventilator 50 04/03/19 07:00 28 Mechanical Ventilator 50 04/03/19 07:00 111 30 50 04/03/19 06:30 112 26 04/03/19 06:00 27 Mechanical Ventilator 50 04/03/19 06:00 110 26 137/91 100 Mechanical Ventilator 50 04/03/19 05:15 27 Mechanical Ventilator 50 04/03/19 05:01 112 28 50 04/03/19 05:00 30 Mechanical Ventilator 50 04/03/19 05:00 115 29 150/99 100 Mechanical Ventilator 50 04/03/19 04:30 111 26 148/97 100 Mechanical Ventilator 50 04/03/19 04:00 98.5 115 32 154/101 100 Mechanical Ventilator 50 04/03/19 04:00 50 04/03/19 04:00 28 Mechanical Ventilator 50 04/03/19 04:00 Mechanical Ventilator 04/03/19 04:00 112 04/03/19 03:44 98.0 04/03/19 03:14 30 Mechanical Ventilator 4.0 50 04/03/19 03:00 124 34 50 04/03/19 03:00 124 37 146/102 97 Mechanical Ventilator 50 04/03/19 03:00 30 Mechanical Ventilator 50 04/03/19 02:30 116 35 147/97 96 Mechanical Ventilator 50 04/03/19 02:00 32 Mechanical Ventilator 50 04/03/19 02:00 108 32 148/96 100 Mechanical Ventilator 50 04/03/19 01:03 103 24 50 04/03/19 01:00 32 Mechanical Ventilator 50 04/03/19 01:00 101 26 136/87 100 Mechanical Ventilator 50 04/03/19 00:35 104 34 133/88 100 Mechanical Ventilator 50 04/03/19 00:00 Mechanical Ventilator 04/03/19 00:00 108 04/03/19 00:00 98.0 101 34 150/99 100 Mechanical Ventilator 50 04/03/19 00:00 32 Mechanical Ventilator 50 04/03/19 00:00 50 04/02/19 23:30 102 33 135/98 100 Mechanical Ventilator 50 04/02/19 23:15 35 Mechanical Ventilator 4.0 50 04/02/19 23:00 101 34 141/95 100 Mechanical Ventilator 50 04/02/19 22:34 102 25 50 04/02/19 22:00 95 29 128/89 100 Mechanical Ventilator 50 04/02/19 21:30 96 30 118/88 100 Mechanical Ventilator 50 04/02/19 21:00 101 33 130/88 91 Mechanical Ventilator 50 04/02/19 21:00 101 26 50 04/02/19 20:00 50 04/02/19 20:00 98.1 104 33 136/87 97 Mechanical Ventilator 50 04/02/19 20:00 Mechanical Ventilator 04/02/19 20:00 24 Mechanical Ventilator 50 04/02/19 20:00 101 04/02/19 19:00 102 30 136/90 97 Mechanical Ventilator 50 04/02/19 19:00 26 Mechanical Ventilator 50 04/02/19 18:57 102 30 50 04/02/19 18:45 29 Mechanical Ventilator 50 04/02/19 18:30 99.2 108 32 144/95 99 Mechanical Ventilator 50 04/02/19 18:00 30 Mechanical Ventilator 50 04/02/19 18:00 105 30 145/89 100 Mechanical Ventilator 50 04/02/19 17:30 106 29 128/84 98 Mechanical Ventilator 50 04/02/19 17:00 101 31 113/87 98 Mechanical Ventilator 50 04/02/19 17:00 26 Mechanical Ventilator 50 04/02/19 16:36 100 26 50 04/02/19 16:30 101 26 146/105 100 Mechanical Ventilator 50 04/02/19 16:00 Mechanical Ventilator 04/02/19 16:00 26 Mechanical Ventilator 50 04/02/19 16:00 100.3 97 26 118/82 98 Mechanical Ventilator 50 04/02/19 16:00 50 04/02/19 15:32 107 04/02/19 15:30 105 27 132/89 98 Mechanical Ventilator 50 04/02/19 15:11 104 33 50 04/02/19 15:00 30 Mechanical Ventilator 50 04/02/19 15:00 107 43 127/92 97 Mechanical Ventilator 50 04/02/19 14:30 107 31 139/100 97 Mechanical Ventilator 50 04/02/19 14:00 109 30 136/90 98 Mechanical Ventilator 50 04/02/19 14:00 26 Mechanical Ventilator 50 04/02/19 13:30 109 25 138/93 98 Mechanical Ventilator 50 04/02/19 13:00 100.7 113 34 128/88 99 Mechanical Ventilator 50 04/02/19 13:00 108 32 50 04/02/19 13:00 26 Mechanical Ventilator 50 04/02/19 12:30 114 28 133/89 99 Mechanical Ventilator 50 04/02/19 12:00 50 04/02/19 12:00 30 Mechanical Ventilator 50 04/02/19 12:00 Mechanical Ventilator 04/02/19 12:00 100.6 113 29 127/91 100 Mechanical Ventilator 50 04/02/19 11:30 117 27 133/90 99 Mechanical Ventilator 50 04/02/19 11:23 113 04/02/19 11:19 105 32 50 04/02/19 11:00 115 31 137/92 100 Mechanical Ventilator 50 04/02/19 11:00 26 Mechanical Ventilator 50 Intake and Output 04/02/19 04/03/19 19:00 07:00 Intake Total 1269 ml 719 ml Output Total 9410 ml 885 ml Balance -8141 ml -166 ml Free Water 250 ml 100 ml IV Total 584 ml 244 ml Tube Feeding 355 ml 315 ml Other 80 ml 60 ml Output Urine Total 410 ml 885 ml Hemodialysis UF 9000 ml # Bowel Movements 1 4 Laboratory Tests 04/03/19 03:40: Urine Color Yellow, Urine Appearance Cloudy, Urine pH 5, Urine Specific [place] 1.010, Urine Protein 2+H, Urine Glucose (UA) Negative, Urine Ketones Negative, Urine Blood 5+H, Urine Nitrite Negative, Urine Bilirubin Negative, Urine Urobilinogen 1H, Urine Leukocyte Esterase 2+H, Urine RBC 20-30H, Urine WBC 15- 20H, Urine Squamous Epithelial Cells Few, Urine Bacteria ModerateH, Urine Yeast ManyH, Urine Legionella Antigen [Pending] 04/03/19 03:51: White Blood Count 16.9H, Red Blood Count 3.02L, Hemoglobin 9.1L, Hematocrit 27.5L, Mean Corpuscular Volume 91, Mean Corpuscular Hemoglobin 30.2, Mean Corpuscular Hemoglobin Concent 33.2, Red Cell Distribution Width 16.1H, Platelet Count 153, Mean Platelet Volume 7.2, Neutrophils (%) (Auto) 83.2H, Lymphocytes (%) (Auto) 9.8L, Monocytes (%) (Auto) 5.3, Eosinophils (%) (Auto) 1.1, Basophils (%) (Auto) 0.6, Sodium Level 140, Potassium Level 3.3L, Chloride Level 103, Carbon Dioxide Level 27, Anion Gap 11, Blood Urea Nitrogen 20H, Creatinine 2.5H, Estimat Glomerular Filtration Rate 25.7, Glucose Level 154H, Uric Acid 3.0, Calcium Level 8.7, Phosphorus Level 2.5, Magnesium Level 2.1, Total Bilirubin 1.1H, Direct Bilirubin 0.7H, Aspartate Amino Transf (AST/SGOT) 104H, Alanine Aminotransferase (ALT/SGPT) 364H, Alkaline Phosphatase 899H, C- Reactive Protein, Quantitative 16.9H, Pro-B-Type Natriuretic Peptide 482H, Total Protein 6.6, Albumin 1.9L, Globulin 4.7, Albumin/Globulin Ratio 0.4L, Random Vancomycin Level 8.4, HIV (1&2) Antibody Rapid Negative Height (Feet): 5 Height (Inches): 2.00 Weight (Pounds): 189 General Appearance: no apparent distress Cardiovascular: tachycardia Respiratory/Chest: decreased breath sounds Abdomen: distended Objective no change Amrit Lopez MD Apr 03, 2019 10:58
--- NOTE | 2019-04-03 11:11 | Diagnostic Imaging Report ---
EXAM: XR Chest, 1 View CLINICAL HISTORY: F/U TECHNIQUE: Frontal view of the chest. COMPARISON: 04/03/19 at 0311. FINDINGS/IMPRESSION: Stable life-support devices. Extensive parenchymal consolidation, left lung greater than right, similar to prior.
--- NOTE | 2019-04-03 11:20 | Diagnostic Imaging Report ---
EXAM: XR Abdomen, 1 view CLINICAL HISTORY: Tube check TECHNIQUE: Frontal view of the abdomen/pelvis COMPARISON: 04/03/19 at 0316. FINDINGS/IMPRESSION: Enteric tube has been advanced. Tip and sidehole now project in the gastric body.
[2019-04-03] MEDS: CALCITRIOL 1 MCG/ML GT SCH (12:01)
[2019-04-03] MEDS: Vitamin D 1000 IU Tab GT SCH (12:01)
--- NOTE | 2019-04-03 15:13 | Internal Med Progress Note ---
Subjective Date of Service: Apr 03, 2019 Physician Name Gilbert,Marshal Attending Physician Shree Mcintyre MD Current Medications Medications (Trade) Dose Ordered Sig/Greta Route PRN Reason Start Time Stop Time Status Last Admin Dose Admin Acetaminophen (Tylenol) 650 mg Q4H PRN GT T>100.5 03/30/19 09:45 04/29/19 09:44 04/03/19 06:47 Calcitriol (Rocatrol) 0.5 mcg DAILY GT 04/01/19 09:00 05/01/19 08:59 04/03/19 12:01 Chlorhexidine Gluconate (Hetal-Hex 2%) 1 applic DAILY@2000 TOPIC 03/27/19 20:00 04/26/19 19:59 04/02/19 20:57 Dextrose (Dextrose 50%) 25 ml Q30M PRN IV Hypoglycemia 03/28/19 11:30 04/27/19 11:29 Dextrose (Dextrose 50%) 50 ml Q30M PRN IV Hypoglycemia 03/28/19 11:30 04/27/19 11:29 Epoetin John (Epoetin John(ESRD on dialysis)) 10,000 unit THU-THU-THU SUBQ 03/30/19 21:00 04/29/19 20:59 04/01/19 20:57 Guaifenesin (Robitussin) 200 mg Q4H PRN GT For Cough 03/30/19 09:45 04/26/19 11:14 Insulin Aspart (NovoLOG) Q6HR SUBQ 04/03/19 12:00 04/27/19 11:59 04/03/19 12:06 Insulin Detemir (Levemir) 6 units BID SUBQ 03/30/19 09:00 04/27/19 11:59 04/03/19 09:46 Meropenem 500 mg/ Sodium Chloride 55 ml @ 110 mls/hr Q24H IVPB 04/03/19 16:00 04/08/19 15:59 Midazolam HCl 100 ml @ 0 mls/hr Q24H PRN IV Agitation 03/28/19 00:15 04/10/19 00:14 04/03/19 13:46 Morphine Sulfate (Morphine Sulfate) 2 mg Q2H PRN IVP Severe Pain (Pain Scale 7-10) 03/28/19 20:15 04/04/19 20:14 03/28/19 23:05 Nitroglycerin (Ntg) 0.4 mg Q5MIN X 3 DOSES PRN SL Prn Chest Pain 03/26/19 20:15 04/25/19 20:14 Ondansetron HCl (Zofran) 4 mg Q6H PRN IVP Nausea & Vomiting 03/26/19 20:00 04/25/19 19:59 03/30/19 06:20 Pantoprazole (Protonix) 40 mg EVERY 12 HOURS IVP 03/30/19 09:00 04/29/19 08:59 04/03/19 09:43 Polyethylene Glycol (Miralax) 17 gm DAILYPRN PRN ORAL Constipation 03/26/19 20:00 04/25/19 19:59 Thiamine HCl 100 mg/Sodium Chloride 56 ml @ 112 mls/hr DAILY IVPB 03/29/19 09:00 04/28/19 08:59 04/03/19 09:43 Vancomycin HCl (Vanco rx to dose) 1 ea DAILY PRN MISC . 03/28/19 09:15 04/27/19 09:14 Vitamin D (Vitamin D) 2,000 intlu DAILY GT 04/01/19 09:00 04/29/19 09:59 04/03/19 12:01 Allergies: Coded Allergies: No Known Allergies (Unverified , 08/04/18) ROS Limited/Unobtainable: Yes Subjective 43 YO F admitted with diabetic ketoacidosis. Now ARDS and respiratory failure. Intubated and sedated. Cover for Int Jorge-Dr Mcintyre. ICU. Fever overnight to 100.7 F Objective Last Vital Signs Date Time Temp Pulse Resp B/P (MAP) Pulse Ox O2 Delivery O2 Flow Rate FiO2 04/03/19 14:16 98.7 04/03/19 14:00 101 27 132/93 99 Mechanical Ventilator 40 04/03/19 03:14 4.0 Laboratory Tests Test 04/03/19 03:40 04/03/19 03:51 04/03/19 11:30 Urine Color Yellow Urine Appearance Cloudy Urine pH 5 (4.5-8.0) Urine Specific [place] 1.010 (1.005-1.035) Urine Protein 2+ (NEGATIVE) H Urine Glucose (UA) Negative (NEGATIVE) Urine Ketones Negative (NEGATIVE) Urine Blood 5+ (NEGATIVE) H Urine Nitrite Negative (NEGATIVE) Urine Bilirubin Negative (NEGATIVE) Urine Urobilinogen 1 MG/DL (0.0-1.0) H Urine Leukocyte Esterase 2+ (NEGATIVE) H Urine RBC 20-30 /HPF (0 - 2) H Urine WBC 15-20 /HPF (0 - 2) H Urine Squamous Epithelial Cells Few /LPF (NONE/OCC) Urine Bacteria Moderate /HPF (NONE) H Urine Yeast Many /HPF (NONE) H Urine Legionella Antigen Pending White Blood Count 16.9 K/UL (4.8-10.8) H Red Blood Count 3.02 M/UL (4.20-5.40) L Hemoglobin 9.1 G/DL (12.0-16.0) L Hematocrit 27.5 % (37.0-47.0) L Mean Corpuscular Volume 91 FL (80-99) Mean Corpuscular Hemoglobin 30.2 PG (27.0-31.0) Mean Corpuscular Hemoglobin Concent 33.2 G/DL (32.0-36.0) Red Cell Distribution Width 16.1 % (11.6-14.8) H Platelet Count 153 K/UL (150-450) Mean Platelet Volume 7.2 FL (6.5-10.1) Neutrophils (%) (Auto) 83.2 % (45.0-75.0) H Lymphocytes (%) (Auto) 9.8 % (20.0-45.0) L Monocytes (%) (Auto) 5.3 % (1.0-10.0) Eosinophils (%) (Auto) 1.1 % (0.0-3.0) Basophils (%) (Auto) 0.6 % (0.0-2.0) Sodium Level 140 MMOL/L (136-145) Potassium Level 3.3 MMOL/L (3.5-5.1) L Chloride Level 103 MMOL/L (98-107) Carbon Dioxide Level 27 MMOL/L (21-32) Anion Gap 11 mmol/L (5-15) Blood Urea Nitrogen 20 mg/dL (7-18) H Creatinine 2.5 MG/DL (0.55-1.30) H Estimat Glomerular Filtration Rate 25.7 mL/min (>60) Glucose Level 154 MG/DL (74-106) H Uric Acid 3.0 MG/DL (2.6-7.2) Calcium Level 8.7 MG/DL (8.5-10.1) Phosphorus Level 2.5 MG/DL (2.5-4.9) Magnesium Level 2.1 MG/DL (1.8-2.4) Total Bilirubin 1.1 MG/DL (0.2-1.0) H Direct Bilirubin 0.7 MG/DL (0.0-0.3) H Aspartate Amino Transf (AST/SGOT) 104 U/L (15-37) H Alanine Aminotransferase (ALT/SGPT) 364 U/L (12-78) H Alkaline Phosphatase 899 U/L (46-116) H C-Reactive Protein, Quantitative 16.9 mg/dL (0.00-0.90) H Pro-B-Type Natriuretic Peptide 482 pg/mL (0-125) H Total Protein 6.6 G/DL (6.4-8.2) Albumin 1.9 G/DL (3.4-5.0) L Globulin 4.7 g/dL Albumin/Globulin Ratio 0.4 (1.0-2.7) L Random Vancomycin Level 8.4 ug/mL HIV (1&2) Antibody Rapid Negative (NEGATIVE) Arterial Blood pH 7.458 (7.350-7.450) Arterial Blood Partial Pressure CO2 40.3 mmHg (35.0-45.0) Arterial Blood Partial Pressure O2 51.7 mmHg (75.0-100.0) L Arterial Blood HCO3 27.9 mmol/L (22.0-26.0) H Arterial Blood Oxygen Saturation 87.3 % (95-100) *L Arterial Blood Base Excess 3.7 (-2-2) H Amarjit Test Positive Microbiology Date/Time Source Procedure Growth Status 04/02/19 11:30 Sputum Gram Stain - Final Resulted 04/02/19 11:30 Sputum Sputum Culture Pending Resulted Intake and Output 04/02/19 04/03/19 19:00 07:00 Intake Total 1269 ml 719 ml Output Total 9410 ml 885 ml Balance -8141 ml -166 ml Free Water 250 ml 100 ml IV Total 584 ml 244 ml Tube Feeding 355 ml 315 ml Other 80 ml 60 ml Output Urine Total 410 ml 885 ml Hemodialysis UF 9000 ml # Bowel Movements 1 4 Objective General Appearance: WD/WN, moderate distress EENT: PERRL/EOMI, normal ENT inspection Neck: non-tender, normal alignment, normal inspection Cardiovascular: normal peripheral pulses, normal rate, regular rhythm, no gallop/murmur, no JVD Respiratory/Chest: Mech vent; respiratory distress, crackles/rales, rhonchi - bilaterally, expiratory wheezing Abdomen: normal bowel sounds, non tender, soft, no organomegaly, no mass Extremities: normal inspection Edema: trace edema Neurologic: honey grader and blender II-XII grossly normal Skin: normal pigmentation Assessment/Plan Assessment/Plan ASSESSMENT: This is a 43-year-old female with: 1. Abdominal pain. 2. Acute on chronic pancreatitis. 3. Diabetic ketoacidosis. 4. Hyperglycemia. 5. Renal failure. 6. Diabetes type 2. 7. Hypertension. 8. Ventral hernia. 9. ARDs/bilateral infiltrates/Respiratory failure 10. Elevated liver funct tests 11. Thrombocytopenia=improving TREATMENT: 1. Abdominal pain/acute pancreatitis. A Gastroenterology consultation has been obtained with Dr. Monty Jaimes. We will follow recommendations of Gastroenterology. The patient is currently NPO. 2. Diabetic ketoacidosis/hyperglycemia. An Endocrinology consultation= Dr. Joseph Saleem. The patient has been placed on an aspart insulin sliding scale and levemir. We will follow recommendations of Endocrinology. 3. Renal failure. A Nephrology consultation has been obtained with Dr. Lopez. Hemodialysis 04/02/19 4. Hypertension. Continue amlodipine as above. 5. Ventral hernia. 6. Mechanical vent per pulmonary=Balfe. Failed weaning today 7. ABX=meropenem and Marshal Mcgowan MD Apr 03, 2019 15:13
[2019-04-03] MEDS ORDERED: D5 1/2NS 1000ml IV ONE (15:15)
[2019-04-03] MEDS ORDERED: NS 275ml ONE ×3 (15:15→15:19)
[2019-04-03] MEDS ORDERED: Tubing IV Secondary IV ONE ×3 (15:15→15:19)
[2019-04-03] MEDS ORDERED: Tubing IV Blood Pump IV ONE (15:16)
[2019-04-03] MEDS: Meropenem 500mg/NS 55ml IVPB SCH ×2 (16:20)
--- NOTE | 2019-04-03 16:28 | Surgery Progress Note ---
Surgery Progress Note Subjective Procedure Performed right femoral central venous catheter insertion Additional Comments Patient seen and examined bedside. Leukocytosis. LFTs improving. Decreasing Versed drip and more alert and responsive this morning. Only tolerated few minutes of vent weaning. Tolerating tube feeds at goal Objective Last 24 Hour Vital Signs Date Time Temp Pulse Resp B/P (MAP) Pulse Ox O2 Delivery O2 Flow Rate FiO2 04/03/19 15:21 99 27 40 04/03/19 15:00 100 23 122/85 99 Mechanical Ventilator 40 04/03/19 14:16 98.7 04/03/19 14:00 101 27 132/93 99 Mechanical Ventilator 40 04/03/19 13:30 106 37 136/94 97 Mechanical Ventilator 40 04/03/19 13:24 99 33 40 04/03/19 13:00 100 30 135/99 99 Mechanical Ventilator 40 04/03/19 12:30 100 27 116/83 98 Mechanical Ventilator 40 04/03/19 12:00 Mechanical Ventilator 04/03/19 12:00 98.7 102 27 129/90 99 Mechanical Ventilator 40 04/03/19 12:00 101 04/03/19 12:00 55 04/03/19 11:30 109 33 142/101 93 Mechanical Ventilator 40 04/03/19 11:00 111 37 136/92 92 Mechanical Ventilator 40 04/03/19 10:45 95 04/03/19 10:44 106 32 40 04/03/19 10:30 101 26 117/80 95 Mechanical Ventilator 40 04/03/19 10:00 95 26 128/87 97 Mechanical Ventilator 40 04/03/19 09:30 98.6 99 26 124/85 96 Mechanical Ventilator 40 04/03/19 09:06 99 26 40 04/03/19 09:00 100 26 120/82 99 Mechanical Ventilator 40 04/03/19 08:30 104 26 121/81 98 Mechanical Ventilator 40 04/03/19 08:00 99.8 108 26 126/80 98 Mechanical Ventilator 40 04/03/19 08:00 Mechanical Ventilator 04/03/19 08:00 108 04/03/19 08:00 40 04/03/19 07:30 108 26 135/90 99 Mechanical Ventilator 50 04/03/19 07:17 99.8 04/03/19 07:00 110 28 142/97 100 Mechanical Ventilator 50 04/03/19 07:00 28 Mechanical Ventilator 50 04/03/19 07:00 111 30 50 04/03/19 06:30 112 26 04/03/19 06:00 27 Mechanical Ventilator 50 04/03/19 06:00 110 26 137/91 100 Mechanical Ventilator 50 04/03/19 05:15 27 Mechanical Ventilator 50 04/03/19 05:01 112 28 50 04/03/19 05:00 30 Mechanical Ventilator 50 04/03/19 05:00 115 29 150/99 100 Mechanical Ventilator 50 04/03/19 04:30 111 26 148/97 100 Mechanical Ventilator 50 04/03/19 04:00 98.5 115 32 154/101 100 Mechanical Ventilator 50 04/03/19 04:00 50 04/03/19 04:00 28 Mechanical Ventilator 50 04/03/19 04:00 Mechanical Ventilator 04/03/19 04:00 112 04/03/19 03:14 30 Mechanical Ventilator 4.0 50 04/03/19 03:00 124 34 50 04/03/19 03:00 124 37 146/102 97 Mechanical Ventilator 50 04/03/19 03:00 30 Mechanical Ventilator 50 04/03/19 02:30 116 35 147/97 96 Mechanical Ventilator 50 04/03/19 02:00 32 Mechanical Ventilator 50 04/03/19 02:00 108 32 148/96 100 Mechanical Ventilator 50 04/03/19 01:03 103 24 50 04/03/19 01:00 32 Mechanical Ventilator 50 04/03/19 01:00 101 26 136/87 100 Mechanical Ventilator 50 04/03/19 00:35 104 34 133/88 100 Mechanical Ventilator 50 04/03/19 00:00 Mechanical Ventilator 04/03/19 00:00 108 04/03/19 00:00 98.0 101 34 150/99 100 Mechanical Ventilator 50 04/03/19 00:00 32 Mechanical Ventilator 50 04/03/19 00:00 50 04/02/19 23:30 102 33 135/98 100 Mechanical Ventilator 50 04/02/19 23:15 35 Mechanical Ventilator 4.0 50 04/02/19 23:00 101 34 141/95 100 Mechanical Ventilator 50 04/02/19 22:34 102 25 50 04/02/19 22:00 95 29 128/89 100 Mechanical Ventilator 50 04/02/19 21:30 96 30 118/88 100 Mechanical Ventilator 50 04/02/19 21:00 101 33 130/88 91 Mechanical Ventilator 50 04/02/19 21:00 101 26 50 04/02/19 20:00 50 04/02/19 20:00 98.1 104 33 136/87 97 Mechanical Ventilator 50 04/02/19 20:00 Mechanical Ventilator 04/02/19 20:00 24 Mechanical Ventilator 50 04/02/19 20:00 101 04/02/19 19:00 102 30 136/90 97 Mechanical Ventilator 50 04/02/19 19:00 26 Mechanical Ventilator 50 04/02/19 18:57 102 30 50 04/02/19 18:45 29 Mechanical Ventilator 50 04/02/19 18:30 99.2 108 32 144/95 99 Mechanical Ventilator 50 04/02/19 18:00 30 Mechanical Ventilator 50 04/02/19 18:00 105 30 145/89 100 Mechanical Ventilator 50 04/02/19 17:30 106 29 128/84 98 Mechanical Ventilator 50 04/02/19 17:00 101 31 113/87 98 Mechanical Ventilator 50 04/02/19 17:00 26 Mechanical Ventilator 50 04/02/19 16:36 100 26 50 04/02/19 16:30 101 26 146/105 100 Mechanical Ventilator 50 I&O Intake and Output 04/02/19 04/03/19 19:00 07:00 Intake Total 1269 ml 719 ml Output Total 9410 ml 885 ml Balance -8141 ml -166 ml Free Water 250 ml 100 ml IV Total 584 ml 244 ml Tube Feeding 355 ml 315 ml Other 80 ml 60 ml Output Urine Total 410 ml 885 ml Hemodialysis UF 9000 ml # Bowel Movements 1 4 Dressing: other Wound: other Drains: other Cardiovascular: RSR Respiratory: clear, decreased breath sounds Abdomen: soft, non-tender, present bowel sounds, non-distended Extremities: edema, no tenderness, no cyanosis Laboratory Tests Test 04/03/19 03:40 04/03/19 03:51 04/03/19 11:30 Urine Color Yellow Urine Appearance Cloudy Urine pH 5 (4.5-8.0) Urine Specific [place] 1.010 (1.005-1.035) Urine Protein 2+ (NEGATIVE) H Urine Glucose (UA) Negative (NEGATIVE) Urine Ketones Negative (NEGATIVE) Urine Blood 5+ (NEGATIVE) H Urine Nitrite Negative (NEGATIVE) Urine Bilirubin Negative (NEGATIVE) Urine Urobilinogen 1 MG/DL (0.0-1.0) H Urine Leukocyte Esterase 2+ (NEGATIVE) H Urine RBC 20-30 /HPF (0 - 2) H Urine WBC 15-20 /HPF (0 - 2) H Urine Squamous Epithelial Cells Few /LPF (NONE/OCC) Urine Bacteria Moderate /HPF (NONE) H Urine Yeast Many /HPF (NONE) H Urine Legionella Antigen Pending White Blood Count 16.9 K/UL (4.8-10.8) H Red Blood Count 3.02 M/UL (4.20-5.40) L Hemoglobin 9.1 G/DL (12.0-16.0) L Hematocrit 27.5 % (37.0-47.0) L Mean Corpuscular Volume 91 FL (80-99) Mean Corpuscular Hemoglobin 30.2 PG (27.0-31.0) Mean Corpuscular Hemoglobin Concent 33.2 G/DL (32.0-36.0) Red Cell Distribution Width 16.1 % (11.6-14.8) H Platelet Count 153 K/UL (150-450) Mean Platelet Volume 7.2 FL (6.5-10.1) Neutrophils (%) (Auto) 83.2 % (45.0-75.0) H Lymphocytes (%) (Auto) 9.8 % (20.0-45.0) L Monocytes (%) (Auto) 5.3 % (1.0-10.0) Eosinophils (%) (Auto) 1.1 % (0.0-3.0) Basophils (%) (Auto) 0.6 % (0.0-2.0) Sodium Level 140 MMOL/L (136-145) Potassium Level 3.3 MMOL/L (3.5-5.1) L Chloride Level 103 MMOL/L (98-107) Carbon Dioxide Level 27 MMOL/L (21-32) Anion Gap 11 mmol/L (5-15) Blood Urea Nitrogen 20 mg/dL (7-18) H Creatinine 2.5 MG/DL (0.55-1.30) H Estimat Glomerular Filtration Rate 25.7 mL/min (>60) Glucose Level 154 MG/DL (74-106) H Uric Acid 3.0 MG/DL (2.6-7.2) Calcium Level 8.7 MG/DL (8.5-10.1) Phosphorus Level 2.5 MG/DL (2.5-4.9) Magnesium Level 2.1 MG/DL (1.8-2.4) Total Bilirubin 1.1 MG/DL (0.2-1.0) H Direct Bilirubin 0.7 MG/DL (0.0-0.3) H Aspartate Amino Transf (AST/SGOT) 104 U/L (15-37) H Alanine Aminotransferase (ALT/SGPT) 364 U/L (12-78) H Alkaline Phosphatase 899 U/L (46-116) H C-Reactive Protein, Quantitative 16.9 mg/dL (0.00-0.90) H Pro-B-Type Natriuretic Peptide 482 pg/mL (0-125) H Total Protein 6.6 G/DL (6.4-8.2) Albumin 1.9 G/DL (3.4-5.0) L Globulin 4.7 g/dL Albumin/Globulin Ratio 0.4 (1.0-2.7) L Random Vancomycin Level 8.4 ug/mL HIV (1&2) Antibody Rapid Negative (NEGATIVE) Arterial Blood pH 7.458 (7.350-7.450) Arterial Blood Partial Pressure CO2 40.3 mmHg (35.0-45.0) Arterial Blood Partial Pressure O2 51.7 mmHg (75.0-100.0) L Arterial Blood HCO3 27.9 mmol/L (22.0-26.0) H Arterial Blood Oxygen Saturation 87.3 % (95-100) *L Arterial Blood Base Excess 3.7 (-2-2) H Amarjit Test Positive Plan Problems: (1) Abdominal pain Assessment & Plan: 43F presented with abd pain per report 01/04 generalized unable to obtain exam now that she is intubated in distress labs noted ventral incisional hernia reducible abd soft -iv fluids -okay to tube feeds advance to goal as tolerated trend labs -will order imaging when stabilized -HD as per renal -appreciate ICU care will follow with recs thank you (2) Ventral hernia (3) Acute on chronic pancreatitis Assessment & Plan: Evidence of acute on chronic pancreatitis. No pseudocyst. Hepatomegaly with severe steatosis. Mild hiatal hernia. abnormal lft's dehydrated dka renal insufficiency Continue diet as tolerated labs improving iv fluids tailored to uop appreciate endocrine input appreciate card cutter helper input needs urgent/emergency central venous catheter. Catheter stable unlikely source of leukocytosis see note HD as per renal vent support trend labs will follow with Lefty Montgomery Apr 03, 2019 16:28
--- NOTE | 2019-04-03 18:38 | General Progress Note ---
Assessment/Plan Status: unchanged Assessment/Plan: Assessment/Plan: anemia respiratory failure DM elevated LFTS shock liver DKA h/p pancreatitis elevated Cr Recommendations OGTF DM control repeat LFTS>>>improving fu labs hepatitis panel stool ob positive ppi GI procedures on hold Subjective Allergies: Coded Allergies: No Known Allergies (Unverified , 08/04/18) Subjective above noted d/w [place] patient intubated, restrained Objective Last 24 Hour Vital Signs Date Time Temp Pulse Resp B/P (MAP) Pulse Ox O2 Delivery O2 Flow Rate FiO2 04/03/19 17:02 113 31 55 04/03/19 17:00 112 31 136/87 97 Mechanical Ventilator 40 04/03/19 17:00 24 Mechanical Ventilator 04/03/19 16:30 106 30 141/93 98 Mechanical Ventilator 40 04/03/19 16:00 Mechanical Ventilator 04/03/19 16:00 22 Mechanical Ventilator 04/03/19 16:00 55 04/03/19 16:00 98.7 101 29 137/90 99 Mechanical Ventilator 40 04/03/19 16:00 98 04/03/19 15:21 99 27 55 04/03/19 15:00 22 Mechanical Ventilator 04/03/19 15:00 100 23 122/85 99 Mechanical Ventilator 40 04/03/19 14:16 98.7 04/03/19 14:00 24 Mechanical Ventilator 04/03/19 14:00 101 27 132/93 99 Mechanical Ventilator 40 04/03/19 13:30 106 37 136/94 97 Mechanical Ventilator 40 04/03/19 13:24 99 33 55 04/03/19 13:00 22 Mechanical Ventilator 04/03/19 13:00 100 30 135/99 99 Mechanical Ventilator 40 04/03/19 12:30 100 27 116/83 98 Mechanical Ventilator 40 04/03/19 12:00 Mechanical Ventilator 04/03/19 12:00 30 Mechanical Ventilator 04/03/19 12:00 98.7 102 27 129/90 99 Mechanical Ventilator 40 04/03/19 12:00 101 04/03/19 12:00 55 04/03/19 11:30 109 33 142/101 93 Mechanical Ventilator 40 04/03/19 11:00 111 37 136/92 92 Mechanical Ventilator 40 04/03/19 11:00 38 Mechanical Ventilator 04/03/19 10:45 95 04/03/19 10:44 106 32 40 04/03/19 10:30 101 26 117/80 95 Mechanical Ventilator 40 04/03/19 10:00 95 26 128/87 97 Mechanical Ventilator 40 04/03/19 10:00 30 Mechanical Ventilator 04/03/19 09:30 98.6 99 26 124/85 96 Mechanical Ventilator 40 04/03/19 09:06 99 26 40 04/03/19 09:00 30 Mechanical Ventilator 04/03/19 09:00 100 26 120/82 99 Mechanical Ventilator 40 04/03/19 08:30 104 26 121/81 98 Mechanical Ventilator 40 04/03/19 08:00 99.8 108 26 126/80 98 Mechanical Ventilator 40 04/03/19 08:00 Mechanical Ventilator 04/03/19 08:00 108 04/03/19 08:00 28 Mechanical Ventilator 04/03/19 08:00 40 04/03/19 07:30 108 26 135/90 99 Mechanical Ventilator 50 04/03/19 07:17 99.8 04/03/19 07:00 110 28 142/97 100 Mechanical Ventilator 50 04/03/19 07:00 28 Mechanical Ventilator 50 04/03/19 07:00 111 30 50 04/03/19 06:30 112 26 04/03/19 06:00 27 Mechanical Ventilator 50 04/03/19 06:00 110 26 137/91 100 Mechanical Ventilator 50 04/03/19 05:15 27 Mechanical Ventilator 50 04/03/19 05:01 112 28 50 04/03/19 05:00 30 Mechanical Ventilator 50 04/03/19 05:00 115 29 150/99 100 Mechanical Ventilator 50 04/03/19 04:30 111 26 148/97 100 Mechanical Ventilator 50 04/03/19 04:00 98.5 115 32 154/101 100 Mechanical Ventilator 50 04/03/19 04:00 50 04/03/19 04:00 28 Mechanical Ventilator 50 04/03/19 04:00 Mechanical Ventilator 04/03/19 04:00 112 04/03/19 03:14 30 Mechanical Ventilator 4.0 50 04/03/19 03:00 124 34 50 04/03/19 03:00 124 37 146/102 97 Mechanical Ventilator 50 04/03/19 03:00 30 Mechanical Ventilator 50 04/03/19 02:30 116 35 147/97 96 Mechanical Ventilator 50 04/03/19 02:00 32 Mechanical Ventilator 50 04/03/19 02:00 108 32 148/96 100 Mechanical Ventilator 50 04/03/19 01:03 103 24 50 04/03/19 01:00 32 Mechanical Ventilator 50 04/03/19 01:00 101 26 136/87 100 Mechanical Ventilator 50 04/03/19 00:35 104 34 133/88 100 Mechanical Ventilator 50 04/03/19 00:00 Mechanical Ventilator 04/03/19 00:00 108 04/03/19 00:00 98.0 101 34 150/99 100 Mechanical Ventilator 50 04/03/19 00:00 32 Mechanical Ventilator 50 04/03/19 00:00 50 04/02/19 23:30 102 33 135/98 100 Mechanical Ventilator 50 04/02/19 23:15 35 Mechanical Ventilator 4.0 50 04/02/19 23:00 101 34 141/95 100 Mechanical Ventilator 50 04/02/19 22:34 102 25 50 04/02/19 22:00 95 29 128/89 100 Mechanical Ventilator 50 04/02/19 21:30 96 30 118/88 100 Mechanical Ventilator 50 04/02/19 21:00 101 33 130/88 91 Mechanical Ventilator 50 04/02/19 21:00 101 26 50 04/02/19 20:00 50 04/02/19 20:00 98.1 104 33 136/87 97 Mechanical Ventilator 50 04/02/19 20:00 Mechanical Ventilator 04/02/19 20:00 24 Mechanical Ventilator 50 04/02/19 20:00 101 04/02/19 19:00 102 30 136/90 97 Mechanical Ventilator 50 04/02/19 19:00 26 Mechanical Ventilator 50 04/02/19 18:57 102 30 50 04/02/19 18:45 29 Mechanical Ventilator 50 Intake and Output 04/02/19 04/03/19 19:00 07:00 Intake Total 1269 ml 719 ml Output Total 9410 ml 885 ml Balance -8141 ml -166 ml Free Water 250 ml 100 ml IV Total 584 ml 244 ml Tube Feeding 355 ml 315 ml Other 80 ml 60 ml Output Urine Total 410 ml 885 ml Hemodialysis UF 9000 ml # Bowel Movements 1 4 Laboratory Tests 04/03/19 03:40: Urine Color Yellow, Urine Appearance Cloudy, Urine pH 5, Urine Specific [place] 1.010, Urine Protein 2+H, Urine Glucose (UA) Negative, Urine Ketones Negative, Urine Blood 5+H, Urine Nitrite Negative, Urine Bilirubin Negative, Urine Urobilinogen 1H, Urine Leukocyte Esterase 2+H, Urine RBC 20-30H, Urine WBC 15- 20H, Urine Squamous Epithelial Cells Few, Urine Bacteria ModerateH, Urine Yeast ManyH, Urine Legionella Antigen [Pending] 04/03/19 03:51: White Blood Count 16.9H, Red Blood Count 3.02L, Hemoglobin 9.1L, Hematocrit 27.5L, Mean Corpuscular Volume 91, Mean Corpuscular Hemoglobin 30.2, Mean Corpuscular Hemoglobin Concent 33.2, Red Cell Distribution Width 16.1H, Platelet Count 153, Mean Platelet Volume 7.2, Neutrophils (%) (Auto) 83.2H, Lymphocytes (%) (Auto) 9.8L, Monocytes (%) (Auto) 5.3, Eosinophils (%) (Auto) 1.1, Basophils (%) (Auto) 0.6, Sodium Level 140, Potassium Level 3.3L, Chloride Level 103, Carbon Dioxide Level 27, Anion Gap 11, Blood Urea Nitrogen 20H, Creatinine 2.5H, Estimat Glomerular Filtration Rate 25.7, Glucose Level 154H, Uric Acid 3.0, Calcium Level 8.7, Phosphorus Level 2.5, Magnesium Level 2.1, Total Bilirubin 1.1H, Direct Bilirubin 0.7H, Aspartate Amino Transf (AST/SGOT) 104H, Alanine Aminotransferase (ALT/SGPT) 364H, Alkaline Phosphatase 899H, C- Reactive Protein, Quantitative 16.9H, Pro-B-Type Natriuretic Peptide 482H, Total Protein 6.6, Albumin 1.9L, Globulin 4.7, Albumin/Globulin Ratio 0.4L, Random Vancomycin Level 8.4, HIV (1&2) Antibody Rapid Negative 04/03/19 11:30: Arterial Blood pH 7.458H, Arterial Blood Partial Pressure CO2 40.3, Arterial Blood Partial Pressure O2 51.7L, Arterial Blood HCO3 27.9H, Arterial Blood Oxygen Saturation 87.3*L, Arterial Blood Base Excess 3.7H, Amarjit Test Positive Height (Feet): 5 Height (Inches): 2.00 Weight (Pounds): 189 Objective Debilitated AA woman HEENT ETT, OGT supple Coarse BS RR abd soft ND no edema Deyanira Harp MD Apr 03, 2019 18:38
[2019-04-03] MEDS: Dyna-Hex 2% Top Sol 2oz TOPIC SCH (20:03)
--- NOTE | 2019-04-03 21:06 | Pulmonolgy Critical Care Note ---
Critical Care - Asmt/Plan Assessment/Plan: Pulmonary Critical Care Progress Note HPI Patient is a 43-year-old woman with past history of Diabetes, Hypertension, Chronic Obstructive Pulmonary Disease, admitted with Acute on Chronic Pancreatitis, elevated Liver Functions, Thrombocytopenia. Had c/o abdominal pain , nausea and vomiting, shortness of breath, coughing. She has a history of pancreatitis, noted to have features of Pancreatitis as well as azotemia, elevated liver function tests. She has history of multiple hernia operations, last in May 2018. Developed ARDS complication Pancreatitis. Patient noted to be in Diabetic Ketoacidosis on admission - remains on Insulin gtt, Metabolic acidosis, ARDS/fluid overload, requiring intubation and mechanical ventilation, Acute Renal Failure, s/p Hemodialysis Improving PEEP/FIO2, did not tolerate weaning today Allergies: No Known Allergies Past Medical History: Diabetes, Hypertension, Chronic Obstructive Pulmonary Disease, Pancreatitis Physical Exam Vital Signs Noted General Appearance: sedated on the ventilator Head: normocephalic, atraumatic Eyes: bilateral eye normal inspection, bilateral PERRL ENT: moist mm, ETT Neck: no LN, no masses Respiratory: bilateral rhonchi, BS equal bilaterally Cardiovascular: HS1, HS2 normal, mild edema Gastrointestinal: normal bowel sounds, soft, non-distended, tenderness - epigastric, hernia - ventral Musculoskeletal: well perfused, moving all limbs Neurologic: no seizures, no focal signs Impression: Pneumonia vs ARDS Respiratory Failure with high FIO2 and PEEP requirements, remains in positive fluid balance despite diuresis Acute on Chronic Pancreatitis Hypocalcemia sp replacement Hypomagnesemia s/p replacement Reduced Albumin level, receiving NGT feeds Acute Renal Failure on HD Elevated Liver Function Tests Significant previous Alcohol abuse per her partner Thrombocytopenia GI bleed - on Protonix gtt Diabetic ketoacidoses Severe metabolic acidosis resolved H/o Hypertension H/o Chronic Obstructive Pulmonary Disease, H/o Multiple Previous Hernia Surgeries Plan ACVC, Vt 450,RR 24, adjust PEEP 5, adjust FIO2 - wean for esqn23-10% - currently 55%, wean ventilator as tolerated CXR noted, persistent infiltrates Dialysis per renal, still making some urine Monitor labs, Repeat ABG PRN HHN Broad spectrum antibiotics/ID PRN Sedation - lighten in AM PPX: SCD/Protonix Insulin gtt Labs noted Echo: Preserved LV function EKG: Rate: tachycardiac Rhythm: NSR ST Segments: no acute changes ASA given to the pt in ED: No Chest X-Ray 03/26/2019: no consolidation, no effusion, no pneumothorax, no acute cardiopulmonary disease CXR: 03/27/2019: worsening bilateral infiltrates, low lung volumes, ETT low CT A/P: Lung bases: No mass. No consolidation. ABDOMEN: Liver: Unremarkable. Gallbladder and bile ducts: Unremarkable. Pancreas: Stranding around the pancreas. Multiple calcifications within the pancreas.. Spleen: Unremarkable. Adrenals: Unremarkable. Kidneys and ureters: No hydronephrosis. Stomach and bowel: No bowel obstruction. No bowel wall thickening. Fatty infiltration of the colonic wall. Mild hiatal hernia. PELVIS: Appendix: No evidence of appendicitis. Bladder: Unremarkable. Reproductive: Unremarkable. ABDOMEN and PELVIS: Intraperitoneal space: Unremarkable. Bones/joints: No acute fractures. Soft tissues: Fat containing periumbilical hernia. Vasculature: No abdominal aortic aneurysm. Lymph nodes: No enlarged lymph nodes. Critical Care - Objective Last 24 Hour Vital Signs Date Time Temp Pulse Resp B/P (MAP) Pulse Ox O2 Delivery O2 Flow Rate FiO2 04/03/19 20:33 107 26 55 04/03/19 20:04 18 Mechanical Ventilator 4.0 55 04/03/19 20:00 100.6 114 30 120/79 100 Mechanical Ventilator 55 04/03/19 20:00 55 04/03/19 20:00 Mechanical Ventilator 04/03/19 20:00 18 Mechanical Ventilator 55 04/03/19 20:00 111 04/03/19 19:30 117 30 118/80 100 Mechanical Ventilator 55 04/03/19 19:00 24 Mechanical Ventilator 04/03/19 19:00 119 32 126/82 100 Mechanical Ventilator 55 04/03/19 18:53 118 32 117/89 100 Mechanical Ventilator 55 04/03/19 18:48 118 33 55 04/03/19 18:30 118 34 119/100 97 Mechanical Ventilator 55 04/03/19 18:00 98.6 120 33 134/86 98 Mechanical Ventilator 55 04/03/19 18:00 26 Mechanical Ventilator 04/03/19 17:02 113 31 55 04/03/19 17:00 112 31 136/87 97 Mechanical Ventilator 40 04/03/19 17:00 24 Mechanical Ventilator 04/03/19 16:30 106 30 141/93 98 Mechanical Ventilator 40 04/03/19 16:00 Mechanical Ventilator 04/03/19 16:00 22 Mechanical Ventilator 04/03/19 16:00 55 04/03/19 16:00 98.7 101 29 137/90 99 Mechanical Ventilator 40 04/03/19 16:00 98 04/03/19 15:21 99 27 55 04/03/19 15:00 22 Mechanical Ventilator 04/03/19 15:00 100 23 122/85 99 Mechanical Ventilator 40 04/03/19 14:16 98.7 04/03/19 14:00 24 Mechanical Ventilator 04/03/19 14:00 101 27 132/93 99 Mechanical Ventilator 40 04/03/19 13:30 106 37 136/94 97 Mechanical Ventilator 40 04/03/19 13:24 99 33 55 04/03/19 13:00 22 Mechanical Ventilator 04/03/19 13:00 100 30 135/99 99 Mechanical Ventilator 40 04/03/19 12:30 100 27 116/83 98 Mechanical Ventilator 40 04/03/19 12:00 Mechanical Ventilator 04/03/19 12:00 30 Mechanical Ventilator 04/03/19 12:00 98.7 102 27 129/90 99 Mechanical Ventilator 40 04/03/19 12:00 101 04/03/19 12:00 55 04/03/19 11:30 109 33 142/101 93 Mechanical Ventilator 40 04/03/19 11:00 111 37 136/92 92 Mechanical Ventilator 40 04/03/19 11:00 38 Mechanical Ventilator 04/03/19 10:45 95 04/03/19 10:44 106 32 40 04/03/19 10:30 101 26 117/80 95 Mechanical Ventilator 40 04/03/19 10:00 95 26 128/87 97 Mechanical Ventilator 40 04/03/19 10:00 30 Mechanical Ventilator 04/03/19 09:30 98.6 99 26 124/85 96 Mechanical Ventilator 40 04/03/19 09:06 99 26 40 04/03/19 09:00 30 Mechanical Ventilator 04/03/19 09:00 100 26 120/82 99 Mechanical Ventilator 40 04/03/19 08:30 104 26 121/81 98 Mechanical Ventilator 40 04/03/19 08:00 99.8 108 26 126/80 98 Mechanical Ventilator 40 04/03/19 08:00 Mechanical Ventilator 04/03/19 08:00 108 04/03/19 08:00 28 Mechanical Ventilator 04/03/19 08:00 40 04/03/19 07:30 108 26 135/90 99 Mechanical Ventilator 50 04/03/19 07:17 99.8 04/03/19 07:00 110 28 142/97 100 Mechanical Ventilator 50 04/03/19 07:00 28 Mechanical Ventilator 50 04/03/19 07:00 111 30 50 04/03/19 06:30 112 26 04/03/19 06:00 27 Mechanical Ventilator 50 04/03/19 06:00 110 26 137/91 100 Mechanical Ventilator 50 04/03/19 05:15 27 Mechanical Ventilator 50 04/03/19 05:01 112 28 50 04/03/19 05:00 30 Mechanical Ventilator 50 04/03/19 05:00 115 29 150/99 100 Mechanical Ventilator 50 04/03/19 04:30 111 26 148/97 100 Mechanical Ventilator 50 04/03/19 04:00 98.5 115 32 154/101 100 Mechanical Ventilator 50 04/03/19 04:00 50 04/03/19 04:00 28 Mechanical Ventilator 50 04/03/19 04:00 Mechanical Ventilator 04/03/19 04:00 112 04/03/19 03:14 30 Mechanical Ventilator 4.0 50 04/03/19 03:00 124 34 50 04/03/19 03:00 124 37 146/102 97 Mechanical Ventilator 50 04/03/19 03:00 30 Mechanical Ventilator 50 04/03/19 02:30 116 35 147/97 96 Mechanical Ventilator 50 04/03/19 02:00 32 Mechanical Ventilator 50 04/03/19 02:00 108 32 148/96 100 Mechanical Ventilator 50 04/03/19 01:03 103 24 50 04/03/19 01:00 32 Mechanical Ventilator 50 04/03/19 01:00 101 26 136/87 100 Mechanical Ventilator 50 04/03/19 00:35 104 34 133/88 100 Mechanical Ventilator 50 04/03/19 00:00 Mechanical Ventilator 04/03/19 00:00 108 04/03/19 00:00 98.0 101 34 150/99 100 Mechanical Ventilator 50 04/03/19 00:00 32 Mechanical Ventilator 50 04/03/19 00:00 50 04/02/19 23:30 102 33 135/98 100 Mechanical Ventilator 50 04/02/19 23:15 35 Mechanical Ventilator 4.0 50 04/02/19 23:00 101 34 141/95 100 Mechanical Ventilator 50 04/02/19 22:34 102 25 50 04/02/19 22:00 95 29 128/89 100 Mechanical Ventilator 50 04/02/19 21:30 96 30 118/88 100 Mechanical Ventilator 50 Micro: Microbiology Date/Time Source Procedure Growth Status 04/02/19 11:30 Sputum Gram Stain - Final Resulted 04/02/19 11:30 Sputum Sputum Culture Pending Resulted Accucheck: 158 Critical Care - Subjective ROS Limited/Unobtainable: No FI02: 55 Vent Support Breath Rate: 26 Vent Support Mode: AC Vent Tidal Volume: 450 Sputum Amount: Small PEEP: 5.0 PIP: 40 Tube Feeding Amount: 45 I&O: Intake and Output 04/02/19 04/03/19 19:00 07:00 Intake Total 1269 ml 719 ml Output Total 9410 ml 885 ml Balance -8141 ml -166 ml Free Water 250 ml 100 ml IV Total 584 ml 244 ml Tube Feeding 355 ml 315 ml Other 80 ml 60 ml Output Urine Total 410 ml 885 ml Hemodialysis UF 9000 ml # Bowel Movements 1 4 ET-Tube: 7.5 ET Position: 23 Julio Rodrigez MD Apr 03, 2019 21:06
[2019-04-04] VITALS (57 sets, daily range): BP systolic 115–195; BP diastolic 61–115
[2019-04-04] MEDS: Versed 50mg/D5W 100ml 100 ML IV PRN ×4 (04:02→23:20)
[2019-04-04 04:46] LABS: EOSINOPHILS % (AUTO) 0.6 % (0.0-3.0); HEMATOCRIT 24.6 % (37.0-47.0); HEMOGLOBIN 8.3 G/DL (12.0-16.0); MEAN CORPUSCULAR VOLUME 91 FL (80-99); MONOCYTES % (AUTO) 5.7 % (1.0-10.0); NEUTROPHILS % (AUTO) 79.7 % (45.0-75.0); PLATELET COUNT 176 K/UL (150-450); RED BLOOD COUNT 2.69 M/UL (4.20-5.40); RED CELL DISTRIBUTION WIDTH 17.1 % (11.6-14.8); WHITE BLOOD COUNT 16.1 K/UL (4.8-10.8)
[2019-04-04 05:12] LABS: ALANINE AMINOTRANSFERASE 236 U/L (12-78); ALBUMIN 1.7 G/DL (3.4-5.0); ALBUMIN/GLOBULIN RATIO 0.3 (1.0-2.7); ALKALINE PHOSPHATASE 723 U/L (46-116); ANION GAP 3 mmol/L (5-15); ASPARTATE AMINO TRANSFERASE 73 U/L (15-37); BILIRUBIN,TOTAL 0.7 MG/DL (0.2-1.0); BLOOD UREA NITROGEN 26 mg/dL (7-18); CALCIUM 8.7 MG/DL (8.5-10.1); CARBON DIOXIDE 32 MMOL/L (21-32); CHLORIDE 105 MMOL/L (98-107); CREATININE 2.7 MG/DL (0.55-1.30); PHOSPHORUS 3.2 MG/DL (2.5-4.9); SODIUM 140 MMOL/L (136-145)
--- NOTE | 2019-04-04 06:44 | General Progress Note ---
Assessment/Plan Problem List: (1) DKA (diabetic ketoacidoses) ICD Codes: E11.10 - Type 2 diabetes mellitus with ketoacidosis without coma SNOMED: 916645169, [id number] Qualifiers: Qualified Codes: E13.10 - Other specified diabetes mellitus with ketoacidosis without coma (2) Diabetes mellitus out of control ICD Codes: E11.65 - Type 2 diabetes mellitus with hyperglycemia SNOMED: 60430457, [id number] (3) Acute on chronic pancreatitis ICD Codes: K85.90 - Acute pancreatitis without necrosis or infection, unspecified; K86.1 - Other chronic pancreatitis SNOMED: 542735869, [id number] (4) Respiratory failure ICD Codes: J96.90 - Respiratory failure, unspecified, unspecified whether with hypoxia or hypercapnia SNOMED: 391768710 Qualifiers: Qualified Codes: J96.01 - Acute respiratory failure with hypoxia Status: unchanged Assessment/Plan: continue Levemir 6 units bid continue NISS every 6 hours Subjective Allergies: Coded Allergies: No Known Allergies (Unverified , 08/04/18) Subjective events noted Item Value Date Time Bedside Blood Glucose 157 mg/dl H 04/04/19 0600 Bedside Blood Glucose 167 mg/dl H 04/03/19 2342 Bedside Blood Glucose 158 mg/dl H 04/03/19 1800 Bedside Blood Glucose 116 mg/dl 04/03/19 1206 Bedside Blood Glucose 172 mg/dl H 04/03/19 0946 Bedside Blood Glucose 119 mg/dl 04/03/19 0500 Bedside Blood Glucose 117 mg/dl 04/03/19 0127 Objective Last 24 Hour Vital Signs Date Time Temp Pulse Resp B/P (MAP) Pulse Ox O2 Delivery O2 Flow Rate FiO2 04/04/19 06:30 120 31 04/04/19 06:00 116 28 143/95 100 Mechanical Ventilator 55 04/04/19 06:00 31 Mechanical Ventilator 55 04/04/19 05:45 120 26 146/95 100 Mechanical Ventilator 55 04/04/19 05:30 118 27 162/93 100 Mechanical Ventilator 55 04/04/19 05:22 114 26 158/105 100 Mechanical Ventilator 55 04/04/19 05:04 117 29 55 04/04/19 05:00 22 Mechanical Ventilator 55 04/04/19 05:00 108 28 146/95 100 Mechanical Ventilator 55 04/04/19 04:32 98.4 04/04/19 04:30 101 26 134/94 100 Mechanical Ventilator 55 04/04/19 04:02 26 Mechanical Ventilator 4.0 55 04/04/19 04:00 104 04/04/19 04:00 55 04/04/19 04:00 Mechanical Ventilator 04/04/19 04:00 26 Mechanical Ventilator 55 04/04/19 04:00 98.4 101 23 134/87 100 Mechanical Ventilator 55 04/04/19 03:33 105 30 55 04/04/19 03:00 100 23 140/97 100 Mechanical Ventilator 55 04/04/19 03:00 26 Mechanical Ventilator 55 04/04/19 02:00 29 Mechanical Ventilator 55 04/04/19 02:00 92 26 122/87 100 Mechanical Ventilator 55 04/04/19 01:01 94 26 55 04/04/19 01:00 92 26 116/84 100 Mechanical Ventilator 55 04/04/19 01:00 26 Mechanical Ventilator 55 04/04/19 00:00 94 04/04/19 00:00 55 04/04/19 00:00 98.8 92 26 115/78 100 Mechanical Ventilator 55 04/04/19 00:00 26 Mechanical Ventilator 55 04/04/19 00:00 Mechanical Ventilator 04/03/19 23:00 26 Mechanical Ventilator 55 04/03/19 23:00 93 26 111/79 100 Mechanical Ventilator 55 04/03/19 22:40 96 26 55 04/03/19 22:00 98 26 113/79 100 Mechanical Ventilator 55 04/03/19 22:00 26 Mechanical Ventilator 55 04/03/19 21:30 104 26 107/68 100 Mechanical Ventilator 55 04/03/19 21:00 99.0 107 24 120/81 98 Mechanical Ventilator 55 04/03/19 21:00 26 Mechanical Ventilator 55 04/03/19 20:41 99.8 04/03/19 20:33 107 26 55 04/03/19 20:04 18 Mechanical Ventilator 4.0 55 04/03/19 20:00 100.6 114 30 120/79 100 Mechanical Ventilator 55 04/03/19 20:00 55 04/03/19 20:00 Mechanical Ventilator 04/03/19 20:00 18 Mechanical Ventilator 55 04/03/19 20:00 111 04/03/19 19:30 117 30 118/80 100 Mechanical Ventilator 55 04/03/19 19:00 24 Mechanical Ventilator 04/03/19 19:00 119 32 126/82 100 Mechanical Ventilator 55 04/03/19 18:53 118 32 117/89 100 Mechanical Ventilator 55 04/03/19 18:48 118 33 55 04/03/19 18:30 118 34 119/100 97 Mechanical Ventilator 55 04/03/19 18:00 98.6 120 33 134/86 98 Mechanical Ventilator 55 04/03/19 18:00 26 Mechanical Ventilator 04/03/19 17:02 113 31 55 04/03/19 17:00 112 31 136/87 97 Mechanical Ventilator 40 04/03/19 17:00 24 Mechanical Ventilator 04/03/19 16:30 106 30 141/93 98 Mechanical Ventilator 40 04/03/19 16:00 Mechanical Ventilator 04/03/19 16:00 22 Mechanical Ventilator 04/03/19 16:00 55 04/03/19 16:00 98.7 101 29 137/90 99 Mechanical Ventilator 40 04/03/19 16:00 98 04/03/19 15:21 99 27 55 04/03/19 15:00 22 Mechanical Ventilator 04/03/19 15:00 100 23 122/85 99 Mechanical Ventilator 40 04/03/19 14:00 24 Mechanical Ventilator 04/03/19 14:00 101 27 132/93 99 Mechanical Ventilator 40 04/03/19 13:30 106 37 136/94 97 Mechanical Ventilator 40 04/03/19 13:24 99 33 55 04/03/19 13:00 22 Mechanical Ventilator 04/03/19 13:00 100 30 135/99 99 Mechanical Ventilator 40 04/03/19 12:30 100 27 116/83 98 Mechanical Ventilator 40 04/03/19 12:00 Mechanical Ventilator 04/03/19 12:00 30 Mechanical Ventilator 04/03/19 12:00 98.7 102 27 129/90 99 Mechanical Ventilator 40 04/03/19 12:00 101 04/03/19 12:00 55 04/03/19 11:30 109 33 142/101 93 Mechanical Ventilator 40 04/03/19 11:00 111 37 136/92 92 Mechanical Ventilator 40 04/03/19 11:00 38 Mechanical Ventilator 04/03/19 10:45 95 04/03/19 10:44 106 32 40 04/03/19 10:30 101 26 117/80 95 Mechanical Ventilator 40 04/03/19 10:00 95 26 128/87 97 Mechanical Ventilator 40 04/03/19 10:00 30 Mechanical Ventilator 04/03/19 09:30 98.6 99 26 124/85 96 Mechanical Ventilator 40 04/03/19 09:06 99 26 40 04/03/19 09:00 30 Mechanical Ventilator 04/03/19 09:00 100 26 120/82 99 Mechanical Ventilator 40 04/03/19 08:30 104 26 121/81 98 Mechanical Ventilator 40 04/03/19 08:00 99.8 108 26 126/80 98 Mechanical Ventilator 40 04/03/19 08:00 Mechanical Ventilator 04/03/19 08:00 108 04/03/19 08:00 28 Mechanical Ventilator 04/03/19 08:00 40 04/03/19 07:30 108 26 135/90 99 Mechanical Ventilator 50 04/03/19 07:00 110 28 142/97 100 Mechanical Ventilator 50 04/03/19 07:00 28 Mechanical Ventilator 50 04/03/19 07:00 111 30 50 Intake and Output 04/03/19 04/04/19 18:59 06:59 Intake Total 1405.916 ml 803 ml Output Total 620 ml 990 ml Balance 785.916 ml -187 ml Free Water 120 ml 200 ml IV Total 925.916 ml 138 ml Tube Feeding 360 ml 405 ml Other 60 ml Output Urine Total 620 ml 990 ml # Bowel Movements 2 Laboratory Tests 04/03/19 11:30: Arterial Blood pH 7.458H, Arterial Blood Partial Pressure CO2 40.3, Arterial Blood Partial Pressure O2 51.7L, Arterial Blood HCO3 27.9H, Arterial Blood Oxygen Saturation 87.3*L, Arterial Blood Base Excess 3.7H, Amarjit Test Positive 04/04/19 03:20: White Blood Count 16.1H, Red Blood Count 2.69L, Hemoglobin 8.3L, Hematocrit 24.6L, Mean Corpuscular Volume 91, Mean Corpuscular Hemoglobin 30.8, Mean Corpuscular Hemoglobin Concent 33.7, Red Cell Distribution Width 17.1H, Platelet Count 176, Mean Platelet Volume 8.0, Neutrophils (%) (Auto) 79.7H, Lymphocytes (%) (Auto) 13.0L, Monocytes (%) (Auto) 5.7, Eosinophils (%) (Auto) 0.6, Basophils (%) (Auto) 1.0, Sodium Level 140, Potassium Level 4.0, Chloride Level 105, Carbon Dioxide Level 32, Anion Gap 3L, Blood Urea Nitrogen 26H, Creatinine 2.7H, Estimat Glomerular Filtration Rate 23.5, Glucose Level 158H, Calcium Level 8.7, Phosphorus Level 3.2, Magnesium Level 2.2, Total Bilirubin 0.7, Aspartate Amino Transf (AST/SGOT) 73H, Alanine Aminotransferase (ALT/SGPT) 236H, Alkaline Phosphatase 723H, C-Reactive Protein, Quantitative 10.3H, Pro-B- Type Natriuretic Peptide 884H, Total Protein 6.6, Albumin 1.7L, Globulin 4.9, Albumin/Globulin Ratio 0.3L Height (Feet): 5 Height (Inches): 2.00 Weight (Pounds): 189 General Appearance: no apparent distress Neck: normal alignment Cardiovascular: normal rate Respiratory/Chest: decreased breath sounds Abdomen: normal bowel sounds Objective Current Medications Medications (Trade) Dose Ordered Sig/Greta Route PRN Reason Start Time Stop Time Status Last Admin Dose Admin Acetaminophen (Tylenol) 650 mg Q4H PRN GT T>100.5 03/30/19 09:45 04/29/19 09:44 04/03/19 20:11 Calcitriol (Rocatrol) 0.5 mcg DAILY GT 04/01/19 09:00 05/01/19 08:59 04/03/19 12:01 Chlorhexidine Gluconate (Hetal-Hex 2%) 1 applic DAILY@2000 TOPIC 03/27/19 20:00 04/26/19 19:59 04/03/19 20:03 Dextrose (Dextrose 50%) 25 ml Q30M PRN IV Hypoglycemia 03/28/19 11:30 04/27/19 11:29 Dextrose (Dextrose 50%) 50 ml Q30M PRN IV Hypoglycemia 03/28/19 11:30 04/27/19 11:29 Epoetin John (Epoetin John(ESRD on dialysis)) 10,000 unit THU-THU-THU SUBQ 03/30/19 21:00 04/29/19 20:59 04/01/19 20:57 Guaifenesin (Robitussin) 200 mg Q4H PRN GT For Cough 03/30/19 09:45 04/26/19 11:14 Insulin Aspart (NovoLOG) Q6HR SUBQ 04/03/19 12:00 04/27/19 11:59 04/03/19 23:42 Insulin Detemir (Levemir) 6 units BID SUBQ 03/30/19 09:00 04/27/19 11:59 04/03/19 17:58 Meropenem 500 mg/ Sodium Chloride 55 ml @ 110 mls/hr Q24H IVPB 04/03/19 16:00 04/08/19 15:59 04/03/19 16:20 Midazolam HCl 100 ml @ 0 mls/hr Q24H PRN IV Agitation 03/28/19 00:15 04/10/19 00:14 04/04/19 04:02 Morphine Sulfate (Morphine Sulfate) 2 mg Q2H PRN IVP Severe Pain (Pain Scale 7-10) 04/03/19 20:30 04/10/19 20:29 Nitroglycerin (Ntg) 0.4 mg Q5MIN X 3 DOSES PRN SL Prn Chest Pain 03/26/19 20:15 04/25/19 20:14 Ondansetron HCl (Zofran) 4 mg Q6H PRN IVP Nausea & Vomiting 03/26/19 20:00 04/25/19 19:59 03/30/19 06:20 Pantoprazole (Protonix) 40 mg EVERY 12 HOURS IVP 03/30/19 09:00 04/29/19 08:59 04/03/19 20:11 Polyethylene Glycol (Miralax) 17 gm DAILYPRN PRN ORAL Constipation 03/26/19 20:00 04/25/19 19:59 Thiamine HCl 100 mg/Sodium Chloride 56 ml @ 112 mls/hr DAILY IVPB 03/29/19 09:00 04/28/19 08:59 04/03/19 09:43 Vancomycin HCl (Vanco rx to dose) 1 ea DAILY PRN MISC . 03/28/19 09:15 04/27/19 09:14 Vitamin D (Vitamin D) 2,000 intlu DAILY GT 04/01/19 09:00 04/29/19 09:59 04/03/19 12:01 Joseph Saleem MD Apr 04, 2019 06:44
[2019-04-04] MEDS: NovoLOG Insulin Flexpen SUBQ SCH ×4 (06:47→23:35)
[2019-04-04] MEDS: Thiamine HCl 100 MG in NS 55 ML IVPB SCH (08:57)
[2019-04-04] MEDS: Vitamin D 1000 IU Tab GT SCH (08:57)
[2019-04-04] MEDS: Pantoprazole Inj IVP SCH ×2 (08:57→20:32)
[2019-04-04] MEDS: CALCITRIOL 1 MCG/ML GT SCH (08:57)
[2019-04-04] MEDS: Acetaminophen 650mg/20.3ml GT PRN (08:57)
[2019-04-04] MEDS: Levemir Flexpen SUBQ SCH ×2 (09:11→18:40)
--- NOTE | 2019-04-04 11:18 | Infectious Diseases Prog Note ---
Assessment/Plan Assessment/Plan Assessment: Sepsis vs SIRS- r/o bacteremia, UTI -04/02 BCx NTD sp cx GNB u/a wbc 15-20, n it neg, leuk +2; ucx p Fever, improving Leukocytosis, worsened Probable PNA -04/03 CXR: Extensive parenchymal consolidation, left lung greater than right, similar to prior. -04/01 CXR: Possible new or increased right pleural effusion. Otherwise unchanged over 3 days as described, including bilateral pulmonary interstitial and airspace edema versus infiltrates -03/28 sp cx normal resp elodia -11/30 u/a neg; ucx 20-30k uro elodia -Influenza sc neg Acute on chronic pancreatitis -CT abd/p: Evidence of acute on chronic pancreatitis. No pseudocyst. Hepatomegaly with severe steatosis. Mild hiatal hernia. AVINASH, improving -Renal US: Negative ultrasound the kidneys. Shock liver; LFTs improving -Abd US: No acute findings. Questionable mild pericholecystic fluid -acute hep panel neg -HIV ab sc neg Dm2 HTN tobacco and ETOH abuse COPD pancreatitis s/p multiple hernia operations x3 -first two in 2015; Last repair May 2018 with mesh placement at [facility] in [place] obesity Plan: -Dc empiric IV Vancomycin #8 -Continue empiric Meropenem #3 -04/02 SP Zosyn #6 -f/u cx -Monitor CBC/CMP, temperatures -f/u ucx, Bcx x2, sp cx -ETT/ICU care -aspiration precautions Thank you for this consultation. Will continue to follow along with you. Discussed with RN Subjective Allergies: Coded Allergies: No Known Allergies (Unverified , 08/04/18) Objective Vital Signs Last 24 Hour Vital Signs Date Time Temp Pulse Resp B/P (MAP) Pulse Ox O2 Delivery O2 Flow Rate FiO2 04/04/19 10:21 97 04/04/19 10:16 150 40 55 04/04/19 10:00 140 36 137/88 99 Mechanical Ventilator 55 04/04/19 10:00 30 Mechanical Ventilator 55 04/04/19 09:50 31 Mechanical Ventilator 55 04/04/19 09:45 128 30 140/81 99 Mechanical Ventilator 55 04/04/19 09:30 100.9 127 31 147/97 100 Mechanical Ventilator 55 04/04/19 09:27 100.9 04/04/19 09:26 127 32 55 55 04/04/19 09:15 124 28 139/89 99 Mechanical Ventilator 55 04/04/19 09:00 124 27 133/89 99 Mechanical Ventilator 55 04/04/19 09:00 26 Mechanical Ventilator 55 04/04/19 08:45 121 24 132/90 99 Mechanical Ventilator 55 04/04/19 08:30 127 26 143/94 100 Mechanical Ventilator 55 04/04/19 08:00 Mechanical Ventilator 04/04/19 08:00 26 Mechanical Ventilator 55 04/04/19 08:00 55 04/04/19 08:00 100.7 122 29 137/95 99 Mechanical Ventilator 55 04/04/19 07:47 119 04/04/19 07:45 116 26 142/94 99 Mechanical Ventilator 55 04/04/19 07:30 115 26 129/87 99 Mechanical Ventilator 55 04/04/19 07:15 122 30 133/86 99 Mechanical Ventilator 55 04/04/19 07:00 30 Mechanical Ventilator 55 04/04/19 07:00 125 28 136/92 99 Mechanical Ventilator 55 04/04/19 06:52 127 30 55 04/04/19 06:30 120 31 04/04/19 06:00 116 28 143/95 100 Mechanical Ventilator 55 04/04/19 06:00 31 Mechanical Ventilator 55 04/04/19 05:45 120 26 146/95 100 Mechanical Ventilator 55 04/04/19 05:30 118 27 162/93 100 Mechanical Ventilator 55 04/04/19 05:22 114 26 158/105 100 Mechanical Ventilator 55 04/04/19 05:04 117 29 55 04/04/19 05:00 22 Mechanical Ventilator 55 04/04/19 05:00 108 28 146/95 100 Mechanical Ventilator 55 04/04/19 04:32 98.4 04/04/19 04:30 101 26 134/94 100 Mechanical Ventilator 55 04/04/19 04:02 26 Mechanical Ventilator 4.0 55 04/04/19 04:00 104 04/04/19 04:00 55 04/04/19 04:00 Mechanical Ventilator 04/04/19 04:00 26 Mechanical Ventilator 55 04/04/19 04:00 98.4 101 23 134/87 100 Mechanical Ventilator 55 04/04/19 03:33 105 30 55 04/04/19 03:00 100 23 140/97 100 Mechanical Ventilator 55 04/04/19 03:00 26 Mechanical Ventilator 55 04/04/19 02:00 29 Mechanical Ventilator 55 04/04/19 02:00 92 26 122/87 100 Mechanical Ventilator 55 04/04/19 01:01 94 26 55 04/04/19 01:00 92 26 116/84 100 Mechanical Ventilator 55 04/04/19 01:00 26 Mechanical Ventilator 55 04/04/19 00:00 94 04/04/19 00:00 55 04/04/19 00:00 98.8 92 26 115/78 100 Mechanical Ventilator 55 04/04/19 00:00 26 Mechanical Ventilator 55 04/04/19 00:00 Mechanical Ventilator 04/03/19 23:00 26 Mechanical Ventilator 55 04/03/19 23:00 93 26 111/79 100 Mechanical Ventilator 55 04/03/19 22:40 96 26 55 04/03/19 22:00 98 26 113/79 100 Mechanical Ventilator 55 04/03/19 22:00 26 Mechanical Ventilator 55 04/03/19 21:30 104 26 107/68 100 Mechanical Ventilator 55 04/03/19 21:00 99.0 107 24 120/81 98 Mechanical Ventilator 55 04/03/19 21:00 26 Mechanical Ventilator 55 04/03/19 20:33 107 26 55 04/03/19 20:04 18 Mechanical Ventilator 4.0 55 04/03/19 20:00 100.6 114 30 120/79 100 Mechanical Ventilator 55 04/03/19 20:00 55 04/03/19 20:00 Mechanical Ventilator 04/03/19 20:00 18 Mechanical Ventilator 55 04/03/19 20:00 111 04/03/19 19:30 117 30 118/80 100 Mechanical Ventilator 55 04/03/19 19:00 24 Mechanical Ventilator 04/03/19 19:00 119 32 126/82 100 Mechanical Ventilator 55 04/03/19 18:53 118 32 117/89 100 Mechanical Ventilator 55 04/03/19 18:48 118 33 55 04/03/19 18:30 118 34 119/100 97 Mechanical Ventilator 55 04/03/19 18:00 98.6 120 33 134/86 98 Mechanical Ventilator 55 04/03/19 18:00 26 Mechanical Ventilator 04/03/19 17:02 113 31 55 04/03/19 17:00 112 31 136/87 97 Mechanical Ventilator 40 04/03/19 17:00 24 Mechanical Ventilator 04/03/19 16:30 106 30 141/93 98 Mechanical Ventilator 40 04/03/19 16:00 Mechanical Ventilator 04/03/19 16:00 22 Mechanical Ventilator 04/03/19 16:00 55 04/03/19 16:00 98.7 101 29 137/90 99 Mechanical Ventilator 40 04/03/19 16:00 98 04/03/19 15:21 99 27 55 04/03/19 15:00 22 Mechanical Ventilator 04/03/19 15:00 100 23 122/85 99 Mechanical Ventilator 40 04/03/19 14:00 24 Mechanical Ventilator 04/03/19 14:00 101 27 132/93 99 Mechanical Ventilator 40 04/03/19 13:30 106 37 136/94 97 Mechanical Ventilator 40 04/03/19 13:24 99 33 55 04/03/19 13:00 22 Mechanical Ventilator 04/03/19 13:00 100 30 135/99 99 Mechanical Ventilator 40 04/03/19 12:30 100 27 116/83 98 Mechanical Ventilator 40 04/03/19 12:00 Mechanical Ventilator 04/03/19 12:00 30 Mechanical Ventilator 04/03/19 12:00 98.7 102 27 129/90 99 Mechanical Ventilator 40 04/03/19 12:00 101 04/03/19 12:00 55 04/03/19 11:30 109 33 142/101 93 Mechanical Ventilator 40 Height (Feet): 5 Height (Inches): 2.00 Weight (Pounds): 189 Objective GENERAL: The patient is a well-developed, well-nourished, obese female, in no apparent distress. HEENT: Eyes, pupils equal and responsive to light and accommodation. Extraocular movements are intact. NECK: Supple. No lymphadenopathy. CHEST: Lungs are clear to auscultation bilaterally without wheezes or rales. CARDIOVASCULAR: Regular rate. S1, S2 normal without murmurs, rubs, or gallops. ABDOMEN: Soft, tender to palpation in the epigastric region, with decreased bowel sounds. There is tenderness to palpation in the epigastric region. There is no rebound or guarding noted. EXTREMITIES: Negative for clubbing, cyanosis, or edema. Microbiology Date/Time Source Procedure Growth Status 04/02/19 12:00 Blood Blood Culture - Preliminary NO GROWTH AFTER 24 HOURS Resulted 04/02/19 11:45 Blood Blood Culture - Preliminary NO GROWTH AFTER 24 HOURS Resulted 04/02/19 11:30 Sputum Gram Stain - Final Resulted 04/02/19 11:30 Sputum Culture - Preliminary Gram Negative Bacillus 1 Resulted Laboratory Tests Test 04/03/19 11:30 04/04/19 03:20 Arterial Blood pH 7.458 (7.350-7.450) Arterial Blood Partial Pressure CO2 40.3 mmHg (35.0-45.0) Arterial Blood Partial Pressure O2 51.7 mmHg (75.0-100.0) L Arterial Blood HCO3 27.9 mmol/L (22.0-26.0) H Arterial Blood Oxygen Saturation 87.3 % (95-100) *L Arterial Blood Base Excess 3.7 (-2-2) H Amarjit Test Positive White Blood Count 16.1 K/UL (4.8-10.8) H Red Blood Count 2.69 M/UL (4.20-5.40) L Hemoglobin 8.3 G/DL (12.0-16.0) L Hematocrit 24.6 % (37.0-47.0) L Mean Corpuscular Volume 91 FL (80-99) Mean Corpuscular Hemoglobin 30.8 PG (27.0-31.0) Mean Corpuscular Hemoglobin Concent 33.7 G/DL (32.0-36.0) Red Cell Distribution Width 17.1 % (11.6-14.8) H Platelet Count 176 K/UL (150-450) Mean Platelet Volume 8.0 FL (6.5-10.1) Neutrophils (%) (Auto) 79.7 % (45.0-75.0) H Lymphocytes (%) (Auto) 13.0 % (20.0-45.0) L Monocytes (%) (Auto) 5.7 % (1.0-10.0) Eosinophils (%) (Auto) 0.6 % (0.0-3.0) Basophils (%) (Auto) 1.0 % (0.0-2.0) Sodium Level 140 MMOL/L (136-145) Potassium Level 4.0 MMOL/L (3.5-5.1) Chloride Level 105 MMOL/L (98-107) Carbon Dioxide Level 32 MMOL/L (21-32) Anion Gap 3 mmol/L (5-15) L Blood Urea Nitrogen 26 mg/dL (7-18) H Creatinine 2.7 MG/DL (0.55-1.30) H Estimat Glomerular Filtration Rate 23.5 mL/min (>60) Glucose Level 158 MG/DL (74-106) H Calcium Level 8.7 MG/DL (8.5-10.1) Phosphorus Level 3.2 MG/DL (2.5-4.9) Magnesium Level 2.2 MG/DL (1.8-2.4) Total Bilirubin 0.7 MG/DL (0.2-1.0) Aspartate Amino Transf (AST/SGOT) 73 U/L (15-37) H Alanine Aminotransferase (ALT/SGPT) 236 U/L (12-78) H Alkaline Phosphatase 723 U/L (46-116) H C-Reactive Protein, Quantitative 10.3 mg/dL (0.00-0.90) H Pro-B-Type Natriuretic Peptide 884 pg/mL (0-125) H Total Protein 6.6 G/DL (6.4-8.2) Albumin 1.7 G/DL (3.4-5.0) L Globulin 4.9 g/dL Albumin/Globulin Ratio 0.3 (1.0-2.7) L Current Medications Medications (Trade) Dose Ordered Sig/Greta Route PRN Reason Start Time Stop Time Status Last Admin Dose Admin Acetaminophen (Tylenol) 650 mg Q4H PRN GT T>100.5 03/30/19 09:45 04/29/19 09:44 04/04/19 08:57 Calcitriol (Rocatrol) 0.5 mcg DAILY GT 04/01/19 09:00 05/01/19 08:59 04/04/19 08:57 Chlorhexidine Gluconate (Hetal-Hex 2%) 1 applic DAILY@1999 TOPIC 03/27/19 20:00 04/26/19 19:59 04/03/19 20:03 Dextrose (Dextrose 50%) 25 ml Q30M PRN IV Hypoglycemia 03/28/19 11:30 04/27/19 11:29 Dextrose (Dextrose 50%) 50 ml Q30M PRN IV Hypoglycemia 03/28/19 11:30 04/27/19 11:29 Epoetin John (Epoetin John(ESRD on dialysis)) 10,000 unit THU-THU-THU SUBQ 03/30/19 21:00 1/3/20 20:59 04/01/19 20:57 Guaifenesin (Robitussin) 200 mg Q4H PRN GT For Cough 03/30/19 09:45 04/26/19 11:14 Insulin Aspart (NovoLOG) Q6HR SUBQ 04/03/19 12:00 04/27/19 11:59 04/04/19 06:47 Insulin Detemir (Levemir) 6 units BID SUBQ 03/30/19 09:00 04/27/19 11:59 04/04/19 09:11 Meropenem 500 mg/ Sodium Chloride 55 ml @ 110 mls/hr Q24H IVPB 04/03/19 16:00 04/08/19 15:59 04/03/19 16:20 Midazolam HCl 100 ml @ 0 mls/hr Q24H PRN IV Agitation 03/28/19 00:15 04/10/19 00:14 04/04/19 09:50 Morphine Sulfate (Morphine Sulfate) 2 mg Q2H PRN IVP Severe Pain (Pain Scale 7-10) 04/03/19 20:30 04/10/19 20:29 Nitroglycerin (Ntg) 0.4 mg Q5MIN X 3 DOSES PRN SL Prn Chest Pain 03/26/19 20:15 04/25/19 20:14 Ondansetron HCl (Zofran) 4 mg Q6H PRN IVP Nausea & Vomiting 03/26/19 20:00 04/25/19 19:59 03/30/19 06:20 Pantoprazole (Protonix) 40 mg EVERY 12 HOURS IVP 03/30/19 09:00 04/29/19 08:59 04/04/19 08:57 Polyethylene Glycol (Miralax) 17 gm DAILYPRN PRN ORAL Constipation 03/26/19 20:00 04/25/19 19:59 Thiamine HCl 100 mg/Sodium Chloride 56 ml @ 112 mls/hr DAILY IVPB 03/29/19 09:00 04/28/19 08:59 04/04/19 08:57 Vancomycin HCl (Vanco rx to dose) 1 ea DAILY PRN MISC . 03/28/19 09:15 04/27/19 09:14 Vitamin D (Vitamin D) 2,000 intlu DAILY GT 04/01/19 09:00 1/3/20 09:59 04/04/19 08:57 Lazara Dozier M.D. Apr 04, 2019 11:18
--- NOTE | 2019-04-04 12:03 | General Progress Note ---
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 DM control repeat LFTS>>>improving fu labs hepatitis panel stool ob positive ppi plan EGD in am Subjective ROS Limited/Unobtainable: No Allergies: Coded Allergies: No Known Allergies (Unverified , 08/04/18) Objective Last 24 Hour Vital Signs Date Time Temp Pulse Resp B/P (MAP) Pulse Ox O2 Delivery O2 Flow Rate FiO2 04/04/19 11:56 133 33 55 04/04/19 11:00 30 Mechanical Ventilator 55 04/04/19 11:00 131 28 142/86 99 Mechanical Ventilator 55 04/04/19 10:21 97 04/04/19 10:16 150 40 55 04/04/19 10:00 140 36 137/88 99 Mechanical Ventilator 55 04/04/19 10:00 30 Mechanical Ventilator 55 04/04/19 09:50 31 Mechanical Ventilator 55 04/04/19 09:45 128 30 140/81 99 Mechanical Ventilator 55 04/04/19 09:30 100.9 127 31 147/97 100 Mechanical Ventilator 55 04/04/19 09:27 100.9 04/04/19 09:26 127 32 55 55 04/04/19 09:15 124 28 139/89 99 Mechanical Ventilator 55 04/04/19 09:00 124 27 133/89 99 Mechanical Ventilator 55 04/04/19 09:00 26 Mechanical Ventilator 55 04/04/19 08:45 121 24 132/90 99 Mechanical Ventilator 55 04/04/19 08:30 127 26 143/94 100 Mechanical Ventilator 55 04/04/19 08:00 Mechanical Ventilator 04/04/19 08:00 26 Mechanical Ventilator 55 04/04/19 08:00 55 04/04/19 08:00 100.7 122 29 137/95 99 Mechanical Ventilator 55 04/04/19 07:47 119 04/04/19 07:45 116 26 142/94 99 Mechanical Ventilator 55 04/04/19 07:30 115 26 129/87 99 Mechanical Ventilator 55 04/04/19 07:15 122 30 133/86 99 Mechanical Ventilator 55 04/04/19 07:00 30 Mechanical Ventilator 55 04/04/19 07:00 125 28 136/92 99 Mechanical Ventilator 55 04/04/19 06:52 127 30 55 04/04/19 06:30 120 31 12/9/19 06:00 116 28 143/95 100 Mechanical Ventilator 55 04/04/19 06:00 31 Mechanical Ventilator 55 04/04/19 05:45 120 26 146/95 100 Mechanical Ventilator 55 04/04/19 05:30 118 27 162/93 100 Mechanical Ventilator 55 04/04/19 05:22 114 26 158/105 100 Mechanical Ventilator 55 04/04/19 05:04 117 29 55 04/04/19 05:00 22 Mechanical Ventilator 55 04/04/19 05:00 108 28 146/95 100 Mechanical Ventilator 55 04/04/19 04:32 98.4 04/04/19 04:30 101 26 134/94 100 Mechanical Ventilator 55 04/04/19 04:02 26 Mechanical Ventilator 4.0 55 04/04/19 04:00 104 04/04/19 04:00 55 04/04/19 04:00 Mechanical Ventilator 04/04/19 04:00 26 Mechanical Ventilator 55 04/04/19 04:00 98.4 101 23 134/87 100 Mechanical Ventilator 55 04/04/19 03:33 105 30 55 04/04/19 03:00 100 23 140/97 100 Mechanical Ventilator 55 04/04/19 03:00 26 Mechanical Ventilator 55 04/04/19 02:00 29 Mechanical Ventilator 55 04/04/19 02:00 92 26 122/87 100 Mechanical Ventilator 55 04/04/19 01:01 94 26 55 04/04/19 01:00 92 26 116/84 100 Mechanical Ventilator 55 04/04/19 01:00 26 Mechanical Ventilator 55 04/04/19 00:00 94 04/04/19 00:00 55 04/04/19 00:00 98.8 92 26 115/78 100 Mechanical Ventilator 55 04/04/19 00:00 26 Mechanical Ventilator 55 04/04/19 00:00 Mechanical Ventilator 04/03/19 23:00 26 Mechanical Ventilator 55 04/03/19 23:00 93 26 111/79 100 Mechanical Ventilator 55 04/03/19 22:40 96 26 55 04/03/19 22:00 98 26 113/79 100 Mechanical Ventilator 55 04/03/19 22:00 26 Mechanical Ventilator 55 04/03/19 21:30 104 26 107/68 100 Mechanical Ventilator 55 04/03/19 21:00 99.0 107 24 120/81 98 Mechanical Ventilator 55 04/03/19 21:00 26 Mechanical Ventilator 55 04/03/19 20:33 107 26 55 04/03/19 20:04 18 Mechanical Ventilator 4.0 55 04/03/19 20:00 100.6 114 30 120/79 100 Mechanical Ventilator 55 04/03/19 20:00 55 04/03/19 20:00 Mechanical Ventilator 04/03/19 20:00 18 Mechanical Ventilator 55 04/03/19 20:00 111 04/03/19 19:30 117 30 118/80 100 Mechanical Ventilator 55 04/03/19 19:00 24 Mechanical Ventilator 04/03/19 19:00 119 32 126/82 100 Mechanical Ventilator 55 04/03/19 18:53 118 32 117/89 100 Mechanical Ventilator 55 04/03/19 18:48 118 33 55 04/03/19 18:30 118 34 119/100 97 Mechanical Ventilator 55 04/03/19 18:00 98.6 120 33 134/86 98 Mechanical Ventilator 55 04/03/19 18:00 26 Mechanical Ventilator 04/03/19 17:02 113 31 55 04/03/19 17:00 112 31 136/87 97 Mechanical Ventilator 40 04/03/19 17:00 24 Mechanical Ventilator 04/03/19 16:30 106 30 141/93 98 Mechanical Ventilator 40 04/03/19 16:00 Mechanical Ventilator 04/03/19 16:00 22 Mechanical Ventilator 04/03/19 16:00 55 04/03/19 16:00 98.7 101 29 137/90 99 Mechanical Ventilator 40 04/03/19 16:00 98 04/03/19 15:21 99 27 55 04/03/19 15:00 22 Mechanical Ventilator 04/03/19 15:00 100 23 122/85 99 Mechanical Ventilator 40 04/03/19 14:00 24 Mechanical Ventilator 04/03/19 14:00 101 27 132/93 99 Mechanical Ventilator 40 04/03/19 13:30 106 37 136/94 97 Mechanical Ventilator 40 04/03/19 13:24 99 33 55 04/03/19 13:00 22 Mechanical Ventilator 04/03/19 13:00 100 30 135/99 99 Mechanical Ventilator 40 04/03/19 12:30 100 27 116/83 98 Mechanical Ventilator 40 Intake and Output 04/03/19 04/04/19 19:00 07:00 Intake Total 1460.916 ml 746 ml Output Total 610 ml 1045 ml Balance 850.916 ml -299 ml Free Water 120 ml 200 ml IV Total 935.916 ml 126 ml Tube Feeding 405 ml 360 ml Other 60 ml Output Urine Total 610 ml 1045 ml # Bowel Movements 2 Laboratory Tests 04/04/19 03:20: White Blood Count 16.1H, Red Blood Count 2.69L, Hemoglobin 8.3L, Hematocrit 24.6L, Mean Corpuscular Volume 91, Mean Corpuscular Hemoglobin 30.8, Mean Corpuscular Hemoglobin Concent 33.7, Red Cell Distribution Width 17.1H, Platelet Count 176, Mean Platelet Volume 8.0, Neutrophils (%) (Auto) 79.7H, Lymphocytes (%) (Auto) 13.0L, Monocytes (%) (Auto) 5.7, Eosinophils (%) (Auto) 0.6, Basophils (%) (Auto) 1.0, Sodium Level 140, Potassium Level 4.0, Chloride Level 105, Carbon Dioxide Level 32, Anion Gap 3L, Blood Urea Nitrogen 26H, Creatinine 2.7H, Estimat Glomerular Filtration Rate 23.5, Glucose Level 158H, Calcium Level 8.7, Phosphorus Level 3.2, Magnesium Level 2.2, Total Bilirubin 0.7, Aspartate Amino Transf (AST/SGOT) 73H, Alanine Aminotransferase (ALT/SGPT) 236H, Alkaline Phosphatase 723H, C-Reactive Protein, Quantitative 10.3H, Pro-B- Type Natriuretic Peptide 884H, Total Protein 6.6, Albumin 1.7L, Globulin 4.9, Albumin/Globulin Ratio 0.3L Height (Feet): 5 Height (Inches): 2.00 Weight (Pounds): 189 General Appearance: lethargic EENT: normal ENT inspection Neck: supple Cardiovascular: normal rate Respiratory/Chest: decreased breath sounds Abdomen: normal bowel sounds, non tender, soft Extremities: non-tender Monty Jaimes MD Apr 04, 2019 12:03
--- NOTE | 2019-04-04 12:06 | Nephrology Progress Note ---
Assessment/Plan Problem List: (1) Acute renal failure (ARF) (2) Respiratory failure (3) DKA (diabetic ketoacidoses) (4) LFT elevation (5) Electrolyte imbalance Assessment: Low Mag and Low Ca (6) Thrombocytopathia Assessment Acute respiratory failure Acute renal failure high LFTs, thrombocytopenia ? HUS ? 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 Ca and Mag IV Vit K Vit D Echo Hyperkinetic wall motion. Left ventricular ejection fraction estimated to be 55-60 %. Moderate left ventricular hypertrophy by 2D. Abd CT: Evidence of acute on chronic pancreatitis. No pseudocyst. Hepatomegaly with severe steatosis. Subjective ROS Limited/Unobtainable: Yes Objective Objective Last 24 Hour Vital Signs Date Time Temp Pulse Resp B/P (MAP) Pulse Ox O2 Delivery O2 Flow Rate FiO2 04/04/19 11:56 133 33 55 04/04/19 11:00 30 Mechanical Ventilator 55 04/04/19 11:00 131 28 142/86 99 Mechanical Ventilator 55 04/04/19 10:21 97 04/04/19 10:16 150 40 55 04/04/19 10:00 140 36 137/88 99 Mechanical Ventilator 55 04/04/19 10:00 30 Mechanical Ventilator 55 04/04/19 09:50 31 Mechanical Ventilator 55 04/04/19 09:45 128 30 140/81 99 Mechanical Ventilator 55 04/04/19 09:30 100.9 127 31 147/97 100 Mechanical Ventilator 55 04/04/19 09:27 100.9 04/04/19 09:26 127 32 55 55 04/04/19 09:15 124 28 139/89 99 Mechanical Ventilator 55 04/04/19 09:00 124 27 133/89 99 Mechanical Ventilator 55 04/04/19 09:00 26 Mechanical Ventilator 55 04/04/19 08:45 121 24 132/90 99 Mechanical Ventilator 55 04/04/19 08:30 127 26 143/94 100 Mechanical Ventilator 55 04/04/19 08:00 Mechanical Ventilator 04/04/19 08:00 26 Mechanical Ventilator 55 04/04/19 08:00 55 04/04/19 08:00 100.7 122 29 137/95 99 Mechanical Ventilator 55 04/04/19 07:47 119 04/04/19 07:45 116 26 142/94 99 Mechanical Ventilator 55 04/04/19 07:30 115 26 129/87 99 Mechanical Ventilator 55 04/04/19 07:15 122 30 133/86 99 Mechanical Ventilator 55 04/04/19 07:00 30 Mechanical Ventilator 55 04/04/19 07:00 125 28 136/92 99 Mechanical Ventilator 55 04/04/19 06:52 127 30 55 04/04/19 06:30 120 31 04/04/19 06:00 116 28 143/95 100 Mechanical Ventilator 55 04/04/19 06:00 31 Mechanical Ventilator 55 04/04/19 05:45 120 26 146/95 100 Mechanical Ventilator 55 04/04/19 05:30 118 27 162/93 100 Mechanical Ventilator 55 04/04/19 05:22 114 26 158/105 100 Mechanical Ventilator 55 04/04/19 05:04 117 29 55 04/04/19 05:00 22 Mechanical Ventilator 55 04/04/19 05:00 108 28 146/95 100 Mechanical Ventilator 55 04/04/19 04:32 98.4 04/04/19 04:30 101 26 134/94 100 Mechanical Ventilator 55 04/04/19 04:02 26 Mechanical Ventilator 4.0 55 04/04/19 04:00 104 04/04/19 04:00 55 04/04/19 04:00 Mechanical Ventilator 04/04/19 04:00 26 Mechanical Ventilator 55 04/04/19 04:00 98.4 101 23 134/87 100 Mechanical Ventilator 55 04/04/19 03:33 105 30 55 04/04/19 03:00 100 23 140/97 100 Mechanical Ventilator 55 04/04/19 03:00 26 Mechanical Ventilator 55 04/04/19 02:00 29 Mechanical Ventilator 55 04/04/19 02:00 92 26 122/87 100 Mechanical Ventilator 55 04/04/19 01:01 94 26 55 04/04/19 01:00 92 26 116/84 100 Mechanical Ventilator 55 04/04/19 01:00 26 Mechanical Ventilator 55 04/04/19 00:00 94 04/04/19 00:00 55 04/04/19 00:00 98.8 92 26 115/78 100 Mechanical Ventilator 55 04/04/19 00:00 26 Mechanical Ventilator 55 04/04/19 00:00 Mechanical Ventilator 04/03/19 23:00 26 Mechanical Ventilator 55 04/03/19 23:00 93 26 111/79 100 Mechanical Ventilator 55 04/03/19 22:40 96 26 55 04/03/19 22:00 98 26 113/79 100 Mechanical Ventilator 55 04/03/19 22:00 26 Mechanical Ventilator 55 04/03/19 21:30 104 26 107/68 100 Mechanical Ventilator 55 04/03/19 21:00 99.0 107 24 120/81 98 Mechanical Ventilator 55 04/03/19 21:00 26 Mechanical Ventilator 55 04/03/19 20:33 107 26 55 04/03/19 20:04 18 Mechanical Ventilator 4.0 55 04/03/19 20:00 100.6 114 30 120/79 100 Mechanical Ventilator 55 04/03/19 20:00 55 04/03/19 20:00 Mechanical Ventilator 04/03/19 20:00 18 Mechanical Ventilator 55 04/03/19 20:00 111 04/03/19 19:30 117 30 118/80 100 Mechanical Ventilator 55 04/03/19 19:00 24 Mechanical Ventilator 04/03/19 19:00 119 32 126/82 100 Mechanical Ventilator 55 04/03/19 18:53 118 32 117/89 100 Mechanical Ventilator 55 04/03/19 18:48 118 33 55 04/03/19 18:30 118 34 119/100 97 Mechanical Ventilator 55 04/03/19 18:00 98.6 120 33 134/86 98 Mechanical Ventilator 55 04/03/19 18:00 26 Mechanical Ventilator 04/03/19 17:02 113 31 55 04/03/19 17:00 112 31 136/87 97 Mechanical Ventilator 40 04/03/19 17:00 24 Mechanical Ventilator 04/03/19 16:30 106 30 141/93 98 Mechanical Ventilator 40 04/03/19 16:00 Mechanical Ventilator 04/03/19 16:00 22 Mechanical Ventilator 04/03/19 16:00 55 04/03/19 16:00 98.7 101 29 137/90 99 Mechanical Ventilator 40 04/03/19 16:00 98 04/03/19 15:21 99 27 55 04/03/19 15:00 22 Mechanical Ventilator 04/03/19 15:00 100 23 122/85 99 Mechanical Ventilator 40 04/03/19 14:00 24 Mechanical Ventilator 04/03/19 14:00 101 27 132/93 99 Mechanical Ventilator 40 04/03/19 13:30 106 37 136/94 97 Mechanical Ventilator 40 04/03/19 13:24 99 33 55 04/03/19 13:00 22 Mechanical Ventilator 04/03/19 13:00 100 30 135/99 99 Mechanical Ventilator 40 04/03/19 12:30 100 27 116/83 98 Mechanical Ventilator 40 Intake and Output 04/03/19 04/04/19 19:00 07:00 Intake Total 1460.916 ml 746 ml Output Total 610 ml 1045 ml Balance 850.916 ml -299 ml Free Water 120 ml 200 ml IV Total 935.916 ml 126 ml Tube Feeding 405 ml 360 ml Other 60 ml Output Urine Total 610 ml 1045 ml # Bowel Movements 2 Laboratory Tests 04/04/19 03:20: White Blood Count 16.1H, Red Blood Count 2.69L, Hemoglobin 8.3L, Hematocrit 24.6L, Mean Corpuscular Volume 91, Mean Corpuscular Hemoglobin 30.8, Mean Corpuscular Hemoglobin Concent 33.7, Red Cell Distribution Width 17.1H, Platelet Count 176, Mean Platelet Volume 8.0, Neutrophils (%) (Auto) 79.7H, Lymphocytes (%) (Auto) 13.0L, Monocytes (%) (Auto) 5.7, Eosinophils (%) (Auto) 0.6, Basophils (%) (Auto) 1.0, Sodium Level 140, Potassium Level 4.0, Chloride Level 105, Carbon Dioxide Level 32, Anion Gap 3L, Blood Urea Nitrogen 26H, Creatinine 2.7H, Estimat Glomerular Filtration Rate 23.5, Glucose Level 158H, Calcium Level 8.7, Phosphorus Level 3.2, Magnesium Level 2.2, Total Bilirubin 0.7, Aspartate Amino Transf (AST/SGOT) 73H, Alanine Aminotransferase (ALT/SGPT) 236H, Alkaline Phosphatase 723H, C-Reactive Protein, Quantitative 10.3H, Pro-B- Type Natriuretic Peptide 884H, Total Protein 6.6, Albumin 1.7L, Globulin 4.9, Albumin/Globulin Ratio 0.3L Height (Feet): 5 Height (Inches): 2.00 Weight (Pounds): 189 General Appearance: no apparent distress EENT: other - vented Cardiovascular: tachycardia Respiratory/Chest: decreased breath sounds Abdomen: soft, distended Objective no change Amrit Lopez MD Apr 04, 2019 12:06
--- NOTE | 2019-04-04 14:36 | Surgery Progress Note ---
Surgery Progress Note Subjective Procedure Performed right femoral central venous catheter insertion Additional Comments leukocytosis anemia weaning off versed on vent support more responsive anasarca Objective Last 24 Hour Vital Signs Date Time Temp Pulse Resp B/P (MAP) Pulse Ox O2 Delivery O2 Flow Rate FiO2 04/04/19 12:39 126 29 55 04/04/19 12:15 127 27 141/94 99 Mechanical Ventilator 55 04/04/19 12:00 101.4 132 30 151/93 99 Mechanical Ventilator 55 04/04/19 12:00 Mechanical Ventilator 04/04/19 12:00 30 Mechanical Ventilator 55 04/04/19 12:00 55 04/04/19 12:00 127 04/04/19 11:56 133 33 55 04/04/19 11:00 30 Mechanical Ventilator 55 04/04/19 11:00 131 28 142/86 99 Mechanical Ventilator 55 04/04/19 10:21 97 04/04/19 10:16 150 40 55 04/04/19 10:00 140 36 137/88 99 Mechanical Ventilator 55 04/04/19 10:00 30 Mechanical Ventilator 55 04/04/19 09:50 31 Mechanical Ventilator 55 04/04/19 09:45 128 30 140/81 99 Mechanical Ventilator 55 04/04/19 09:30 100.9 127 31 147/97 100 Mechanical Ventilator 55 04/04/19 09:27 100.9 04/04/19 09:26 127 32 55 55 04/04/19 09:15 124 28 139/89 99 Mechanical Ventilator 55 04/04/19 09:00 124 27 133/89 99 Mechanical Ventilator 55 04/04/19 09:00 26 Mechanical Ventilator 55 04/04/19 08:45 121 24 132/90 99 Mechanical Ventilator 55 04/04/19 08:30 127 26 143/94 100 Mechanical Ventilator 55 04/04/19 08:00 Mechanical Ventilator 04/04/19 08:00 26 Mechanical Ventilator 55 04/04/19 08:00 55 04/04/19 08:00 100.7 122 29 137/95 99 Mechanical Ventilator 55 04/04/19 07:47 119 04/04/19 07:45 116 26 142/94 99 Mechanical Ventilator 55 04/04/19 07:30 115 26 129/87 99 Mechanical Ventilator 55 04/04/19 07:15 122 30 133/86 99 Mechanical Ventilator 55 04/04/19 07:00 30 Mechanical Ventilator 55 04/04/19 07:00 125 28 136/92 99 Mechanical Ventilator 55 04/04/19 06:52 127 30 55 04/04/19 06:30 120 31 04/04/19 06:00 116 28 143/95 100 Mechanical Ventilator 55 04/04/19 06:00 31 Mechanical Ventilator 55 04/04/19 05:45 120 26 146/95 100 Mechanical Ventilator 55 04/04/19 05:30 118 27 162/93 100 Mechanical Ventilator 55 04/04/19 05:22 114 26 158/105 100 Mechanical Ventilator 55 04/04/19 05:04 117 29 55 04/04/19 05:00 22 Mechanical Ventilator 55 04/04/19 05:00 108 28 146/95 100 Mechanical Ventilator 55 04/04/19 04:32 98.4 04/04/19 04:30 101 26 134/94 100 Mechanical Ventilator 55 04/04/19 04:02 26 Mechanical Ventilator 4.0 55 04/04/19 04:00 104 04/04/19 04:00 55 04/04/19 04:00 Mechanical Ventilator 04/04/19 04:00 26 Mechanical Ventilator 55 04/04/19 04:00 98.4 101 23 134/87 100 Mechanical Ventilator 55 04/04/19 03:33 105 30 55 04/04/19 03:00 100 23 140/97 100 Mechanical Ventilator 55 04/04/19 03:00 26 Mechanical Ventilator 55 04/04/19 02:00 29 Mechanical Ventilator 55 04/04/19 02:00 92 26 122/87 100 Mechanical Ventilator 55 04/04/19 01:01 94 26 55 04/04/19 01:00 92 26 116/84 100 Mechanical Ventilator 55 04/04/19 01:00 26 Mechanical Ventilator 55 04/04/19 00:00 94 04/04/19 00:00 55 04/04/19 00:00 98.8 92 26 115/78 100 Mechanical Ventilator 55 04/04/19 00:00 26 Mechanical Ventilator 55 04/04/19 00:00 Mechanical Ventilator 04/03/19 23:00 26 Mechanical Ventilator 55 04/03/19 23:00 93 26 111/79 100 Mechanical Ventilator 55 04/03/19 22:40 96 26 55 04/03/19 22:00 98 26 113/79 100 Mechanical Ventilator 55 04/03/19 22:00 26 Mechanical Ventilator 55 04/03/19 21:30 104 26 107/68 100 Mechanical Ventilator 55 04/03/19 21:00 99.0 107 24 120/81 98 Mechanical Ventilator 55 04/03/19 21:00 26 Mechanical Ventilator 55 04/03/19 20:33 107 26 55 04/03/19 20:04 18 Mechanical Ventilator 4.0 55 04/03/19 20:00 100.6 114 30 120/79 100 Mechanical Ventilator 55 04/03/19 20:00 55 04/03/19 20:00 Mechanical Ventilator 04/03/19 20:00 18 Mechanical Ventilator 55 04/03/19 20:00 111 04/03/19 19:30 117 30 118/80 100 Mechanical Ventilator 55 04/03/19 19:00 24 Mechanical Ventilator 04/03/19 19:00 119 32 126/82 100 Mechanical Ventilator 55 04/03/19 18:53 118 32 117/89 100 Mechanical Ventilator 55 04/03/19 18:48 118 33 55 04/03/19 18:30 118 34 119/100 97 Mechanical Ventilator 55 04/03/19 18:00 98.6 120 33 134/86 98 Mechanical Ventilator 55 04/03/19 18:00 26 Mechanical Ventilator 04/03/19 17:02 113 31 55 04/03/19 17:00 112 31 136/87 97 Mechanical Ventilator 40 04/03/19 17:00 24 Mechanical Ventilator 04/03/19 16:30 106 30 141/93 98 Mechanical Ventilator 40 04/03/19 16:00 Mechanical Ventilator 04/03/19 16:00 22 Mechanical Ventilator 04/03/19 16:00 55 04/03/19 16:00 98.7 101 29 137/90 99 Mechanical Ventilator 40 04/03/19 16:00 98 04/03/19 15:21 99 27 55 04/03/19 15:00 22 Mechanical Ventilator 04/03/19 15:00 100 23 122/85 99 Mechanical Ventilator 40 I&O Intake and Output 04/03/19 04/04/19 19:00 07:00 Intake Total 1460.916 ml 746 ml Output Total 610 ml 1045 ml Balance 850.916 ml -299 ml Free Water 120 ml 200 ml IV Total 935.916 ml 126 ml Tube Feeding 405 ml 360 ml Other 60 ml Output Urine Total 610 ml 1045 ml # Bowel Movements 2 Dressing: other Wound: other Drains: other Cardiovascular: RSR Respiratory: decreased breath sounds Abdomen: soft, present bowel sounds, decreased bowel sounds Extremities: edema, no cyanosis, other Laboratory Tests Test 04/04/19 03:20 04/04/19 10:53 White Blood Count 16.1 K/UL (4.8-10.8) H Red Blood Count 2.69 M/UL (4.20-5.40) L Hemoglobin 8.3 G/DL (12.0-16.0) L Hematocrit 24.6 % (37.0-47.0) L Mean Corpuscular Volume 91 FL (80-99) Mean Corpuscular Hemoglobin 30.8 PG (27.0-31.0) Mean Corpuscular Hemoglobin Concent 33.7 G/DL (32.0-36.0) Red Cell Distribution Width 17.1 % (11.6-14.8) H Platelet Count 176 K/UL (150-450) Mean Platelet Volume 8.0 FL (6.5-10.1) Neutrophils (%) (Auto) 79.7 % (45.0-75.0) H Lymphocytes (%) (Auto) 13.0 % (20.0-45.0) L Monocytes (%) (Auto) 5.7 % (1.0-10.0) Eosinophils (%) (Auto) 0.6 % (0.0-3.0) Basophils (%) (Auto) 1.0 % (0.0-2.0) Sodium Level 140 MMOL/L (136-145) Potassium Level 4.0 MMOL/L (3.5-5.1) Chloride Level 105 MMOL/L (98-107) Carbon Dioxide Level 32 MMOL/L (21-32) Anion Gap 3 mmol/L (5-15) L Blood Urea Nitrogen 26 mg/dL (7-18) H Creatinine 2.7 MG/DL (0.55-1.30) H Estimat Glomerular Filtration Rate 23.5 mL/min (>60) Glucose Level 158 MG/DL (74-106) H Calcium Level 8.7 MG/DL (8.5-10.1) Phosphorus Level 3.2 MG/DL (2.5-4.9) Magnesium Level 2.2 MG/DL (1.8-2.4) Total Bilirubin 0.7 MG/DL (0.2-1.0) Aspartate Amino Transf (AST/SGOT) 73 U/L (15-37) H Alanine Aminotransferase (ALT/SGPT) 236 U/L (12-78) H Alkaline Phosphatase 723 U/L (46-116) H C-Reactive Protein, Quantitative 10.3 mg/dL (0.00-0.90) H Pro-B-Type Natriuretic Peptide 884 pg/mL (0-125) H Total Protein 6.6 G/DL (6.4-8.2) Albumin 1.7 G/DL (3.4-5.0) L Globulin 4.9 g/dL Albumin/Globulin Ratio 0.3 (1.0-2.7) L Arterial Blood pH 7.462 (7.350-7.450) Arterial Blood Partial Pressure CO2 37.7 mmHg (35.0-45.0) Arterial Blood Partial Pressure O2 119.9 mmHg (75.0-100.0) H Arterial Blood HCO3 26.3 mmol/L (22.0-26.0) H Arterial Blood Oxygen Saturation 98.0 % (95-100) Arterial Blood Base Excess 2.4 (-2-2) H Amarjit Test Positive Plan Problems: (1) Abdominal pain Assessment & Plan: 43F presented with abd pain per report 01/04 generalized unable to obtain exam now that she is intubated in distress labs noted ventral incisional hernia reducible abd soft -iv fluids -okay to tube feeds advance to goal as tolerated trend labs -will order imaging when stabilized -HD as per renal -appreciate ICU care -fluid off with HD wean vent wean versed tube feeds to goal will follow with recs thank you (2) Ventral hernia (3) Acute on chronic pancreatitis Assessment & Plan: Evidence of acute on chronic pancreatitis. No pseudocyst. Hepatomegaly with severe steatosis. Mild hiatal hernia. abnormal lft's dehydrated dka renal insufficiency Continue diet as tolerated labs improving iv fluids tailored to uop appreciate endocrine input appreciate bell attendant input needs urgent/emergency central venous catheter. Catheter stable unlikely source of leukocytosis see note HD as per renal vent support trend labs will follow with recs Lefty Meraz Apr 04, 2019 14:36
[2019-04-04] MEDS: Meropenem 500mg/NS 55ml IVPB SCH ×2 (15:10)
--- NOTE | 2019-04-04 19:02 | Internal Med Progress Note ---
Subjective Date of Service: Apr 04, 2019 Physician Name Gilbert,Marshal Attending Physician Shree Mcintyre MD Current Medications Medications (Trade) Dose Ordered Sig/Greta Route PRN Reason Start Time Stop Time Status Last Admin Dose Admin Acetaminophen (Tylenol) 650 mg Q4H PRN GT T>100.5 03/30/19 09:45 04/29/19 09:44 04/04/19 08:57 Calcitriol (Rocatrol) 0.5 mcg DAILY GT 04/01/19 09:00 05/01/19 08:59 04/04/19 08:57 Chlorhexidine Gluconate (Hetal-Hex 2%) 1 applic DAILY@2000 TOPIC 03/27/19 20:00 04/26/19 19:59 04/03/19 20:03 Dextrose (Dextrose 50%) 25 ml Q30M PRN IV Hypoglycemia 03/28/19 11:30 04/27/19 11:29 Dextrose (Dextrose 50%) 50 ml Q30M PRN IV Hypoglycemia 03/28/19 11:30 04/27/19 11:29 Epoetin John (Epoetin John(ESRD on dialysis)) 10,000 unit THU-THU-THU SUBQ 03/30/19 21:00 04/29/19 20:59 04/01/19 20:57 Guaifenesin (Robitussin) 200 mg Q4H PRN GT For Cough 03/30/19 09:45 04/26/19 11:14 Insulin Aspart (NovoLOG) Q6HR SUBQ 04/03/19 12:00 04/27/19 11:59 04/04/19 18:41 Insulin Detemir (Levemir) 6 units BID SUBQ 03/30/19 09:00 04/27/19 11:59 04/04/19 18:40 Meropenem 500 mg/ Sodium Chloride 55 ml @ 110 mls/hr Q24H IVPB 04/03/19 16:00 04/08/19 15:59 04/04/19 15:10 Midazolam HCl 100 ml @ 0 mls/hr Q24H PRN IV Agitation 03/28/19 00:15 04/10/19 00:14 04/04/19 09:50 Morphine Sulfate (Morphine Sulfate) 2 mg Q2H PRN IVP Severe Pain (Pain Scale 7-10) 04/03/19 20:30 04/10/19 20:29 Nitroglycerin (Ntg) 0.4 mg Q5MIN X 3 DOSES PRN SL Prn Chest Pain 03/26/19 20:15 04/25/19 20:14 Ondansetron HCl (Zofran) 4 mg Q6H PRN IVP Nausea & Vomiting 03/26/19 20:00 04/25/19 19:59 03/30/19 06:20 Pantoprazole (Protonix) 40 mg EVERY 12 HOURS IVP 03/30/19 09:00 04/29/19 08:59 04/04/19 08:57 Polyethylene Glycol (Miralax) 17 gm DAILYPRN PRN ORAL Constipation 03/26/19 20:00 04/25/19 19:59 Thiamine HCl 100 mg/Sodium Chloride 56 ml @ 112 mls/hr DAILY IVPB 03/29/19 09:00 04/28/19 08:59 04/04/19 08:57 Vitamin D (Vitamin D) 2,000 intlu DAILY GT 04/01/19 09:00 04/29/19 09:59 04/04/19 08:57 Allergies: Coded Allergies: No Known Allergies (Unverified , 08/04/18) ROS Limited/Unobtainable: Yes Subjective 43 YO F admitted with diabetic ketoacidosis. Now ARDS and respiratory failure. Intubated and sedated. Cover for Int Med-Dr Mcintyre. ICU. Objective Last Vital Signs Date Time Temp Pulse Resp B/P (MAP) Pulse Ox O2 Delivery O2 Flow Rate FiO2 04/04/19 18:45 125 31 159/102 96 Mechanical Ventilator 55 04/04/19 16:00 100.1 04/04/19 04:02 4.0 Laboratory Tests Test 04/04/19 03:20 04/04/19 10:53 White Blood Count 16.1 K/UL (4.8-10.8) H Red Blood Count 2.69 M/UL (4.20-5.40) L Hemoglobin 8.3 G/DL (12.0-16.0) L Hematocrit 24.6 % (37.0-47.0) L Mean Corpuscular Volume 91 FL (80-99) Mean Corpuscular Hemoglobin 30.8 PG (27.0-31.0) Mean Corpuscular Hemoglobin Concent 33.7 G/DL (32.0-36.0) Red Cell Distribution Width 17.1 % (11.6-14.8) H Platelet Count 176 K/UL (150-450) Mean Platelet Volume 8.0 FL (6.5-10.1) Neutrophils (%) (Auto) 79.7 % (45.0-75.0) H Lymphocytes (%) (Auto) 13.0 % (20.0-45.0) L Monocytes (%) (Auto) 5.7 % (1.0-10.0) Eosinophils (%) (Auto) 0.6 % (0.0-3.0) Basophils (%) (Auto) 1.0 % (0.0-2.0) Sodium Level 140 MMOL/L (136-145) Potassium Level 4.0 MMOL/L (3.5-5.1) Chloride Level 105 MMOL/L (98-107) Carbon Dioxide Level 32 MMOL/L (21-32) Anion Gap 3 mmol/L (5-15) L Blood Urea Nitrogen 26 mg/dL (7-18) H Creatinine 2.7 MG/DL (0.55-1.30) H Estimat Glomerular Filtration Rate 23.5 mL/min (>60) Glucose Level 158 MG/DL (74-106) H Calcium Level 8.7 MG/DL (8.5-10.1) Phosphorus Level 3.2 MG/DL (2.5-4.9) Magnesium Level 2.2 MG/DL (1.8-2.4) Total Bilirubin 0.7 MG/DL (0.2-1.0) Aspartate Amino Transf (AST/SGOT) 73 U/L (15-37) H Alanine Aminotransferase (ALT/SGPT) 236 U/L (12-78) H Alkaline Phosphatase 723 U/L (46-116) H C-Reactive Protein, Quantitative 10.3 mg/dL (0.00-0.90) H Pro-B-Type Natriuretic Peptide 884 pg/mL (0-125) H Total Protein 6.6 G/DL (6.4-8.2) Albumin 1.7 G/DL (3.4-5.0) L Globulin 4.9 g/dL Albumin/Globulin Ratio 0.3 (1.0-2.7) L Arterial Blood pH 7.462 (7.350-7.450) Arterial Blood Partial Pressure CO2 37.7 mmHg (35.0-45.0) Arterial Blood Partial Pressure O2 119.9 mmHg (75.0-100.0) H Arterial Blood HCO3 26.3 mmol/L (22.0-26.0) H Arterial Blood Oxygen Saturation 98.0 % (95-100) Arterial Blood Base Excess 2.4 (-2-2) H Amarjit Test Positive Microbiology Date/Time Source Procedure Growth Status 04/02/19 12:00 Blood Blood Culture - Preliminary NO GROWTH AFTER 24 HOURS Resulted 04/02/19 11:45 Blood Blood Culture - Preliminary NO GROWTH AFTER 24 HOURS Resulted 04/02/19 11:30 Sputum Gram Stain - Final Resulted 04/02/19 11:30 Sputum Culture - Preliminary Gram Negative Bacillus 1 Resulted Intake and Output 04/03/19 04/04/19 19:00 07:00 Intake Total 1460.916 ml 746 ml Output Total 610 ml 1045 ml Balance 850.916 ml -299 ml Free Water 120 ml 200 ml IV Total 935.916 ml 126 ml Tube Feeding 405 ml 360 ml Other 60 ml Output Urine Total 610 ml 1045 ml # Bowel Movements 2 Objective General Appearance: WD/WN, moderate distress EENT: PERRL/EOMI, normal ENT inspection Neck: non-tender, normal alignment, normal inspection Cardiovascular: normal peripheral pulses, normal rate, regular rhythm, no gallop/murmur, no JVD Respiratory/Chest: Mech vent; respiratory distress, crackles/rales, rhonchi - bilaterally, expiratory wheezing Abdomen: normal bowel sounds, non tender, soft, no organomegaly, no mass Extremities: normal inspection Edema: trace edema Neurologic: fumigator and sterilizer II-XII grossly normal Skin: normal pigmentation Assessment/Plan Assessment/Plan ASSESSMENT: This is a 43-year-old female with: 1. Abdominal pain. 2. Acute on chronic pancreatitis. 3. Diabetic ketoacidosis. 4. Hyperglycemia. 5. Renal failure. 6. Diabetes type 2. 7. Hypertension. 8. Ventral hernia. 9. ARDs/bilateral infiltrates/Respiratory failure 10. Elevated liver funct tests 11. Thrombocytopenia=improving TREATMENT: 1. Abdominal pain/acute pancreatitis. A Gastroenterology consultation has been obtained with Dr. Monty Jaimes. We will follow recommendations of Gastroenterology. The patient is currently NPO. 2. Diabetic ketoacidosis/hyperglycemia. An Endocrinology consultation= Dr. Joseph Saleem. The patient has been placed on an aspart insulin sliding scale and levemir. We will follow recommendations of Endocrinology. 3. Renal failure. A Nephrology consultation has been obtained with Dr. Lopez. Hemodialysis 04/02/19 4. Hypertension. Continue amlodipine as above. 5. Ventral hernia. 6. Mechanical vent per pulmonary=Balfe. Failed weaning today 7. ABX=meropenem and Marshal Mcgowan MD Apr 04, 2019 19:02
[2019-04-04] MEDS: Dyna-Hex 2% Top Sol 2oz TOPIC SCH (19:45)
[2019-04-04] MEDS: Epoetin Alfa-EPBX(ESRD on dialysis)10,000 unit/ml vial SUBQ SCH (20:32)
--- NOTE | 2019-04-04 21:23 | Pulmonolgy Critical Care Note ---
Critical Care - Asmt/Plan Assessment/Plan: Pulmonary Critical Care Progress Note HPI Patient is a 43-year-old woman with past history of Diabetes, Hypertension, Chronic Obstructive Pulmonary Disease, admitted with Acute on Chronic Pancreatitis, elevated Liver Functions, Thrombocytopenia. Had c/o abdominal pain , nausea and vomiting, shortness of breath, coughing. She has a history of pancreatitis, noted to have features of Pancreatitis as well as azotemia, elevated liver function tests. She has history of multiple hernia operations, last in May 2018. Developed ARDS complication Pancreatitis. Patient noted to be in Diabetic Ketoacidosis on admission - remains on Insulin gtt, Metabolic acidosis, ARDS/fluid overload, requiring intubation and mechanical ventilation, Acute Renal Failure, s/p Hemodialysis Improving PEEP/FIO2, did not tolerate weaning today Allergies: No Known Allergies Past Medical History: Diabetes, Hypertension, Chronic Obstructive Pulmonary Disease, Pancreatitis Physical Exam Vital Signs Noted General Appearance: sedated on the ventilator Head: normocephalic, atraumatic Eyes: bilateral eye normal inspection, bilateral PERRL ENT: moist mm, ETT Neck: no LN, no masses Respiratory: bilateral rhonchi, BS equal bilaterally Cardiovascular: HS1, HS2 normal, mild edema Gastrointestinal: normal bowel sounds, soft, non-distended, tenderness - epigastric, hernia - ventral Musculoskeletal: well perfused, moving all limbs Neurologic: no seizures, no focal signs Impression: Pneumonia vs ARDS Respiratory Failure with high FIO2 and PEEP requirements, remains in positive fluid balance despite diuresis Acute on Chronic Pancreatitis Hypocalcemia sp replacement Hypomagnesemia s/p replacement Reduced Albumin level, receiving NGT feeds Acute Renal Failure on HD Elevated Liver Function Tests Significant previous Alcohol abuse per her partner Thrombocytopenia GI bleed - on Protonix gtt Diabetic ketoacidoses Severe metabolic acidosis resolved H/o Hypertension H/o Chronic Obstructive Pulmonary Disease, H/o Multiple Previous Hernia Surgeries Plan ACVC, Vt 450,RR 24, adjust PEEP 5, adjust FIO2 - wean for oemp17-59% - currently 50%, wean ventilator as tolerated CXR noted, persistent infiltrates Dialysis per renal, still making some urine Monitor labs, Repeat ABG PRN HHN Broad spectrum antibiotics/ID PRN Sedation - lighten as tolerated PPX: SCD/Protonix Insulin gtt Labs noted Echo: Preserved LV function EKG: Rate: tachycardiac Rhythm: NSR ST Segments: no acute changes ASA given to the pt in ED: No Chest X-Ray 03/26/2019: no consolidation, no effusion, no pneumothorax, no acute cardiopulmonary disease CXR: 03/27/2019: worsening bilateral infiltrates, low lung volumes, ETT low CT A/P: Lung bases: No mass. No consolidation. ABDOMEN: Liver: Unremarkable. Gallbladder and bile ducts: Unremarkable. Pancreas: Stranding around the pancreas. Multiple calcifications within the pancreas.. Spleen: Unremarkable. Adrenals: Unremarkable. Kidneys and ureters: No hydronephrosis. Stomach and bowel: No bowel obstruction. No bowel wall thickening. Fatty infiltration of the colonic wall. Mild hiatal hernia. PELVIS: Appendix: No evidence of appendicitis. Bladder: Unremarkable. Reproductive: Unremarkable. ABDOMEN and PELVIS: Intraperitoneal space: Unremarkable. Bones/joints: No acute fractures. Soft tissues: Fat containing periumbilical hernia. Vasculature: No abdominal aortic aneurysm. Lymph nodes: No enlarged lymph nodes. Critical Care - Objective Last 24 Hour Vital Signs Date Time Temp Pulse Resp B/P (MAP) Pulse Ox O2 Delivery O2 Flow Rate FiO2 04/04/19 21:05 102 26 45 04/04/19 21:00 104 29 136/101 99 Mechanical Ventilator 45 04/04/19 20:45 104 33 140/100 99 Mechanical Ventilator 45 04/04/19 20:30 107 31 142/97 98 Mechanical Ventilator 45 04/04/19 20:08 116 24 151/105 98 Mechanical Ventilator 45 04/04/19 20:00 27 Mechanical Ventilator 45 04/04/19 20:00 45 04/04/19 20:00 Mechanical Ventilator 04/04/19 20:00 99.5 120 27 164/108 97 Mechanical Ventilator 45 04/04/19 19:48 118 04/04/19 19:46 27 Mechanical Ventilator 45 04/04/19 19:45 122 26 161/115 99 Mechanical Ventilator 45 04/04/19 19:30 123 27 162/105 99 Mechanical Ventilator 45 04/04/19 19:29 31 Mechanical Ventilator 45 04/04/19 19:22 123 28 45 04/04/19 19:15 124 32 158/104 98 Mechanical Ventilator 45 04/04/19 19:00 125 22 126/61 98 Mechanical Ventilator 45 04/04/19 19:00 30 Mechanical Ventilator 45 04/04/19 18:45 125 31 159/102 96 Mechanical Ventilator 55 04/04/19 18:30 129 25 159/110 96 Mechanical Ventilator 55 04/04/19 18:15 134 25 164/115 98 Mechanical Ventilator 55 04/04/19 18:00 135 33 170/108 98 Mechanical Ventilator 55 04/04/19 18:00 30 Mechanical Ventilator 45 04/04/19 17:45 130 29 153/105 97 Mechanical Ventilator 55 04/04/19 17:30 27 Mechanical Ventilator 45 04/04/19 17:30 131 20 195/114 96 Mechanical Ventilator 55 04/04/19 17:15 134 35 167/100 98 Mechanical Ventilator 55 04/04/19 17:00 129 28 163/93 97 Mechanical Ventilator 55 04/04/19 17:00 27 Mechanical Ventilator 45 04/04/19 16:25 121 31 45 04/04/19 16:00 55 04/04/19 16:00 26 Mechanical Ventilator 55 04/04/19 16:00 100.1 110 26 140/94 100 Mechanical Ventilator 55 04/04/19 16:00 Mechanical Ventilator 04/04/19 15:49 109 04/04/19 15:18 108 34 55 04/04/19 15:15 114 26 146/91 100 Mechanical Ventilator 55 04/04/19 15:00 30 Mechanical Ventilator 55 04/04/19 15:00 116 26 157/97 100 Mechanical Ventilator 55 04/04/19 14:30 117 26 153/96 100 Mechanical Ventilator 55 04/04/19 14:00 100.2 118 29 147/102 98 Mechanical Ventilator 55 04/04/19 14:00 26 Mechanical Ventilator 55 04/04/19 13:30 121 23 142/100 99 Mechanical Ventilator 55 04/04/19 13:00 124 29 138/93 99 Mechanical Ventilator 55 04/04/19 13:00 26 Mechanical Ventilator 55 04/04/19 12:45 124 32 138/97 99 Mechanical Ventilator 55 04/04/19 12:39 126 29 55 04/04/19 12:30 126 24 142/94 99 Mechanical Ventilator 55 04/04/19 12:15 127 27 141/94 99 Mechanical Ventilator 55 04/04/19 12:00 101.4 132 30 151/93 99 Mechanical Ventilator 55 04/04/19 12:00 Mechanical Ventilator 04/04/19 12:00 30 Mechanical Ventilator 55 04/04/19 12:00 55 04/04/19 12:00 127 04/04/19 11:56 133 33 55 04/04/19 11:00 30 Mechanical Ventilator 55 04/04/19 11:00 131 28 142/86 99 Mechanical Ventilator 55 04/04/19 10:21 97 04/04/19 10:16 150 40 55 04/04/19 10:00 140 36 137/88 99 Mechanical Ventilator 55 04/04/19 10:00 30 Mechanical Ventilator 55 04/04/19 09:50 31 Mechanical Ventilator 55 04/04/19 09:45 128 30 140/81 99 Mechanical Ventilator 55 04/04/19 09:30 100.9 127 31 147/97 100 Mechanical Ventilator 55 04/04/19 09:27 100.9 04/04/19 09:26 127 32 55 55 04/04/19 09:15 124 28 139/89 99 Mechanical Ventilator 55 04/04/19 09:00 124 27 133/89 99 Mechanical Ventilator 55 04/04/19 09:00 26 Mechanical Ventilator 55 04/04/19 08:45 121 24 132/90 99 Mechanical Ventilator 55 04/04/19 08:30 127 26 143/94 100 Mechanical Ventilator 55 04/04/19 08:00 Mechanical Ventilator 04/04/19 08:00 26 Mechanical Ventilator 55 04/04/19 08:00 55 04/04/19 08:00 100.7 122 29 137/95 99 Mechanical Ventilator 55 04/04/19 07:47 119 04/04/19 07:45 116 26 142/94 99 Mechanical Ventilator 55 04/04/19 07:30 115 26 129/87 99 Mechanical Ventilator 55 04/04/19 07:15 122 30 133/86 99 Mechanical Ventilator 55 04/04/19 07:00 30 Mechanical Ventilator 55 04/04/19 07:00 125 28 136/92 99 Mechanical Ventilator 55 04/04/19 06:52 127 30 55 04/04/19 06:30 120 31 04/04/19 06:00 116 28 143/95 100 Mechanical Ventilator 55 04/04/19 06:00 31 Mechanical Ventilator 55 04/04/19 05:45 120 26 146/95 100 Mechanical Ventilator 55 04/04/19 05:30 118 27 162/93 100 Mechanical Ventilator 55 04/04/19 05:22 114 26 158/105 100 Mechanical Ventilator 55 04/04/19 05:04 117 29 55 04/04/19 05:00 22 Mechanical Ventilator 55 04/04/19 05:00 108 28 146/95 100 Mechanical Ventilator 55 04/04/19 04:32 98.4 04/04/19 04:30 101 26 134/94 100 Mechanical Ventilator 55 04/04/19 04:02 26 Mechanical Ventilator 4.0 55 04/04/19 04:00 104 04/04/19 04:00 55 04/04/19 04:00 Mechanical Ventilator 04/04/19 04:00 26 Mechanical Ventilator 55 04/04/19 04:00 98.4 101 23 134/87 100 Mechanical Ventilator 55 04/04/19 03:33 105 30 55 04/04/19 03:00 100 23 140/97 100 Mechanical Ventilator 55 04/04/19 03:00 26 Mechanical Ventilator 55 04/04/19 02:00 29 Mechanical Ventilator 55 04/04/19 02:00 92 26 122/87 100 Mechanical Ventilator 55 04/04/19 01:01 94 26 55 04/04/19 01:00 92 26 116/84 100 Mechanical Ventilator 55 04/04/19 01:00 26 Mechanical Ventilator 55 04/04/19 00:00 94 04/04/19 00:00 55 04/04/19 00:00 98.8 92 26 115/78 100 Mechanical Ventilator 55 04/04/19 00:00 26 Mechanical Ventilator 55 04/04/19 00:00 Mechanical Ventilator 04/03/19 23:00 26 Mechanical Ventilator 55 04/03/19 23:00 93 26 111/79 100 Mechanical Ventilator 55 04/03/19 22:40 96 26 55 04/03/19 22:00 98 26 113/79 100 Mechanical Ventilator 55 04/03/19 22:00 26 Mechanical Ventilator 55 04/03/19 21:30 104 26 107/68 100 Mechanical Ventilator 55 Micro: Microbiology Date/Time Source Procedure Growth Status 04/02/19 12:00 Blood Blood Culture - Preliminary NO GROWTH AFTER 24 HOURS Resulted 04/02/19 11:45 Blood Blood Culture - Preliminary NO GROWTH AFTER 24 HOURS Resulted 04/02/19 11:30 Sputum Gram Stain - Final Resulted 04/02/19 11:30 Sputum Culture - Preliminary Gram Negative Bacillus 1 Resulted Accucheck: 191 Critical Care - Subjective ROS Limited/Unobtainable: No FI02: 45 Vent Support Breath Rate: 26 Vent Support Mode: AC Vent Tidal Volume: 450 Sputum Amount: Scant PEEP: 5.0 PIP: 33 Tube Feeding Amount: 50 I&O: Intake and Output 04/03/19 04/04/19 19:00 07:00 Intake Total 1460.916 ml 746 ml Output Total 610 ml 1045 ml Balance 850.916 ml -299 ml Free Water 120 ml 200 ml IV Total 935.916 ml 126 ml Tube Feeding 405 ml 360 ml Other 60 ml Output Urine Total 610 ml 1045 ml # Bowel Movements 2 ET-Tube: 7.5 ET Position: 23 Julio Rodrigez MD Apr 04, 2019 21:23
[2019-04-05] VITALS (43 sets, daily range): BP systolic 128–188; BP diastolic 84–117
[2019-04-05] MEDS: Versed 50mg/D5W 100ml 100 ML IV PRN ×6 (02:37→22:29)
[2019-04-05] MEDS: NovoLOG Insulin Flexpen SUBQ SCH ×4 (05:47→23:40)
[2019-04-05 05:48] LABS: HEMATOCRIT 23.2 % (37.0-47.0); HEMOGLOBIN 7.7 G/DL (12.0-16.0); MEAN CORPUSCULAR VOLUME 92 FL (80-99); PLATELET COUNT 210 K/UL (150-450); RED BLOOD COUNT 2.52 M/UL (4.20-5.40); RED CELL DISTRIBUTION WIDTH 17.8 % (11.6-14.8)
[2019-04-05 06:10] LABS: ALANINE AMINOTRANSFERASE 208 U/L (12-78); ALBUMIN 1.8 G/DL (3.4-5.0); ALBUMIN/GLOBULIN RATIO 0.4 (1.0-2.7); ALKALINE PHOSPHATASE 565 U/L (46-116); ANION GAP 8 mmol/L (5-15); ASPARTATE AMINO TRANSFERASE 61 U/L (15-37); BILIRUBIN,TOTAL 0.7 MG/DL (0.2-1.0); BLOOD UREA NITROGEN 25 mg/dL (7-18); CARBON DIOXIDE 27 MMOL/L (21-32); CHLORIDE 107 MMOL/L (98-107); CREATININE 2.5 MG/DL (0.55-1.30); POTASSIUM 3.6 MMOL/L (3.5-5.1); SODIUM 142 MMOL/L (136-145)
--- NOTE | 2019-04-05 06:37 | General Progress Note ---
Assessment/Plan Problem List: (1) DKA (diabetic ketoacidoses) ICD Codes: E11.10 - Type 2 diabetes mellitus with ketoacidosis without coma SNOMED: 768492834, [id number] Qualifiers: Qualified Codes: E13.10 - Other specified diabetes mellitus with ketoacidosis without coma (2) Diabetes mellitus out of control ICD Codes: E11.65 - Type 2 diabetes mellitus with hyperglycemia SNOMED: 12741315, [id number] (3) Acute on chronic pancreatitis ICD Codes: K85.90 - Acute pancreatitis without necrosis or infection, unspecified; K86.1 - Other chronic pancreatitis SNOMED: 285669184, [id number] (4) Respiratory failure ICD Codes: J96.90 - Respiratory failure, unspecified, unspecified whether with hypoxia or hypercapnia SNOMED: 925148222 Qualifiers: Qualified Codes: J96.01 - Acute respiratory failure with hypoxia Status: unchanged Assessment/Plan: continue Levemir 6 units bid continue NISS every 6 hours Subjective ROS Limited/Unobtainable: Yes Allergies: Coded Allergies: No Known Allergies (Unverified , 08/04/18) Subjective events noted fair glycemic control Item Value Date Time Bedside Blood Glucose 121 mg/dl H 04/05/19 0547 Bedside Blood Glucose 162 mg/dl H 04/04/19 2335 Bedside Blood Glucose 191 mg/dl H 04/04/19 1841 Bedside Blood Glucose 159 mg/dl H 04/04/19 1205 Bedside Blood Glucose 137 mg/dl H 04/04/19 0911 Bedside Blood Glucose 157 mg/dl H 04/04/19 0647 Objective Last 24 Hour Vital Signs Date Time Temp Pulse Resp B/P (MAP) Pulse Ox O2 Delivery O2 Flow Rate FiO2 04/05/19 06:02 23 Mechanical Ventilator 45 04/05/19 06:00 24 Mechanical Ventilator 45 04/05/19 06:00 107 24 160/99 99 Mechanical Ventilator 45 04/05/19 05:30 102 25 161/98 100 Mechanical Ventilator 45 04/05/19 05:10 104 26 45 04/05/19 05:00 21 Mechanical Ventilator 45 04/05/19 05:00 105 21 166/103 100 Mechanical Ventilator 45 04/05/19 04:30 107 26 165/98 100 Mechanical Ventilator 45 04/05/19 04:00 Mechanical Ventilator 04/05/19 04:00 45 04/05/19 04:00 23 Mechanical Ventilator 45 04/05/19 04:00 99.0 104 23 158/92 83 Mechanical Ventilator 45 04/05/19 03:42 91 04/05/19 03:30 96 26 150/93 99 Mechanical Ventilator 45 04/05/19 03:00 98 25 142/93 100 Mechanical Ventilator 45 04/05/19 03:00 25 Mechanical Ventilator 45 04/05/19 02:53 97 26 45 04/05/19 02:37 21 Mechanical Ventilator 45 04/05/19 02:30 100 26 135/94 99 Mechanical Ventilator 45 04/05/19 02:00 25 Mechanical Ventilator 45 04/05/19 02:00 104 25 161/101 100 Mechanical Ventilator 45 04/05/19 01:30 110 28 151/98 100 Mechanical Ventilator 45 04/05/19 01:15 119 35 45 04/05/19 01:00 27 Mechanical Ventilator 45 04/05/19 01:00 115 27 155/104 100 Mechanical Ventilator 45 04/05/19 00:30 121 25 161/105 100 Mechanical Ventilator 45 04/05/19 00:00 45 04/05/19 00:00 24 Mechanical Ventilator 45 04/05/19 00:00 Mechanical Ventilator 04/05/19 00:00 99.1 111 24 168/100 100 Mechanical Ventilator 45 04/04/19 23:30 107 25 156/98 100 Mechanical Ventilator 45 04/04/19 23:25 105 28 45 04/04/19 23:20 23 Mechanical Ventilator 45 04/04/19 23:06 105 04/04/19 23:00 25 Mechanical Ventilator 45 04/04/19 23:00 108 25 153/101 100 Mechanical Ventilator 45 04/04/19 22:30 109 22 155/93 100 Mechanical Ventilator 45 04/04/19 22:00 106 22 144/96 100 Mechanical Ventilator 45 04/04/19 22:00 30 Mechanical Ventilator 45 04/04/19 21:30 108 26 159/107 99 Mechanical Ventilator 45 04/04/19 21:05 102 26 45 04/04/19 21:00 104 29 136/101 99 Mechanical Ventilator 45 04/04/19 21:00 28 Mechanical Ventilator 45 04/04/19 20:45 104 33 140/100 99 Mechanical Ventilator 45 04/04/19 20:30 107 31 142/97 98 Mechanical Ventilator 45 04/04/19 20:08 116 24 151/105 98 Mechanical Ventilator 45 04/04/19 20:00 27 Mechanical Ventilator 45 04/04/19 20:00 45 04/04/19 20:00 Mechanical Ventilator 04/04/19 20:00 99.5 120 27 164/108 97 Mechanical Ventilator 45 04/04/19 19:48 118 04/04/19 19:46 27 Mechanical Ventilator 45 04/04/19 19:45 122 26 161/115 99 Mechanical Ventilator 45 04/04/19 19:30 123 27 162/105 99 Mechanical Ventilator 45 04/04/19 19:29 31 Mechanical Ventilator 45 04/04/19 19:22 123 28 45 04/04/19 19:15 124 32 158/104 98 Mechanical Ventilator 45 04/04/19 19:00 125 22 126/61 98 Mechanical Ventilator 45 04/04/19 19:00 30 Mechanical Ventilator 45 04/04/19 18:45 125 31 159/102 96 Mechanical Ventilator 55 04/04/19 18:30 129 25 159/110 96 Mechanical Ventilator 55 04/04/19 18:15 134 25 164/115 98 Mechanical Ventilator 55 04/04/19 18:00 135 33 170/108 98 Mechanical Ventilator 55 04/04/19 18:00 30 Mechanical Ventilator 45 04/04/19 17:45 130 29 153/105 97 Mechanical Ventilator 55 04/04/19 17:30 27 Mechanical Ventilator 45 04/04/19 17:30 131 20 195/114 96 Mechanical Ventilator 55 04/04/19 17:15 134 35 167/100 98 Mechanical Ventilator 55 04/04/19 17:00 129 28 163/93 97 Mechanical Ventilator 55 04/04/19 17:00 27 Mechanical Ventilator 45 04/04/19 16:25 121 31 45 04/04/19 16:00 55 04/04/19 16:00 26 Mechanical Ventilator 55 04/04/19 16:00 100.1 110 26 140/94 100 Mechanical Ventilator 55 04/04/19 16:00 Mechanical Ventilator 04/04/19 15:49 109 04/04/19 15:18 108 34 55 04/04/19 15:15 114 26 146/91 100 Mechanical Ventilator 55 04/04/19 15:00 30 Mechanical Ventilator 55 04/04/19 15:00 116 26 157/97 100 Mechanical Ventilator 55 04/04/19 14:30 117 26 153/96 100 Mechanical Ventilator 55 04/04/19 14:00 100.2 118 29 147/102 98 Mechanical Ventilator 55 04/04/19 14:00 26 Mechanical Ventilator 55 04/04/19 13:30 121 23 142/100 99 Mechanical Ventilator 55 04/04/19 13:00 124 29 138/93 99 Mechanical Ventilator 55 04/04/19 13:00 26 Mechanical Ventilator 55 04/04/19 12:45 124 32 138/97 99 Mechanical Ventilator 55 04/04/19 12:39 126 29 55 04/04/19 12:30 126 24 142/94 99 Mechanical Ventilator 55 04/04/19 12:15 127 27 141/94 99 Mechanical Ventilator 55 04/04/19 12:00 101.4 132 30 151/93 99 Mechanical Ventilator 55 04/04/19 12:00 Mechanical Ventilator 04/04/19 12:00 30 Mechanical Ventilator 55 04/04/19 12:00 55 04/04/19 12:00 127 04/04/19 11:56 133 33 55 04/04/19 11:00 30 Mechanical Ventilator 55 04/04/19 11:00 131 28 142/86 99 Mechanical Ventilator 55 04/04/19 10:21 97 04/04/19 10:16 150 40 55 04/04/19 10:00 140 36 137/88 99 Mechanical Ventilator 55 04/04/19 10:00 30 Mechanical Ventilator 55 04/04/19 09:50 31 Mechanical Ventilator 55 04/04/19 09:45 128 30 140/81 99 Mechanical Ventilator 55 04/04/19 09:30 100.9 127 31 147/97 100 Mechanical Ventilator 55 04/04/19 09:27 100.9 04/04/19 09:26 127 32 55 55 04/04/19 09:15 124 28 139/89 99 Mechanical Ventilator 55 04/04/19 09:00 124 27 133/89 99 Mechanical Ventilator 55 04/04/19 09:00 26 Mechanical Ventilator 55 04/04/19 08:45 121 24 132/90 99 Mechanical Ventilator 55 04/04/19 08:30 127 26 143/94 100 Mechanical Ventilator 55 04/04/19 08:00 Mechanical Ventilator 04/04/19 08:00 26 Mechanical Ventilator 55 04/04/19 08:00 55 04/04/19 08:00 100.7 122 29 137/95 99 Mechanical Ventilator 55 04/04/19 07:47 119 04/04/19 07:45 116 26 142/94 99 Mechanical Ventilator 55 04/04/19 07:30 115 26 129/87 99 Mechanical Ventilator 55 04/04/19 07:15 122 30 133/86 99 Mechanical Ventilator 55 04/04/19 07:00 30 Mechanical Ventilator 55 04/04/19 07:00 125 28 136/92 99 Mechanical Ventilator 55 04/04/19 06:52 127 30 55 Intake and Output 04/04/19 04/05/19 18:59 06:59 Intake Total 911.667 ml 769 ml Output Total 980 ml 810 ml Balance -68.333 ml -41 ml Free Water 300 ml 100 ml IV Total 211.667 ml 369 ml Tube Feeding 400 ml 300 ml Output Urine Total 980 ml 810 ml # Bowel Movements 2 4 Laboratory Tests 04/04/19 10:53: Arterial Blood pH 7.462H, Arterial Blood Partial Pressure CO2 37.7, Arterial Blood Partial Pressure O2 119.9H, Arterial Blood HCO3 26.3H, Arterial Blood Oxygen Saturation 98.0, Arterial Blood Base Excess 2.4H, Amarjit Test Positive 04/05/19 03:40: White Blood Count 15.0H, Red Blood Count 2.52L, Hemoglobin 7.7L, Hematocrit 23.2L, Mean Corpuscular Volume 92, Mean Corpuscular Hemoglobin 30.7, Mean Corpuscular Hemoglobin Concent 33.3, Red Cell Distribution Width 17.8H, Platelet Count 210, Mean Platelet Volume 7.2, Neutrophils (%) (Auto) , Lymphocytes (%) (Auto) , Monocytes (%) (Auto) , Eosinophils (%) (Auto) , Basophils (%) (Auto) , Neutrophils % (Manual) [Pending], Lymphocytes % (Manual) [Pending], Platelet Estimate [Pending], Platelet Morphology [Pending], Sodium Level 142, Potassium Level 3.6, Chloride Level 107, Carbon Dioxide Level 27, Anion Gap 8, Blood Urea Nitrogen 25H, Creatinine 2.5H, Estimat Glomerular Filtration Rate 25.7, Glucose Level 119H, Calcium Level 9.0, Total Bilirubin 0.7 , Aspartate Amino Transf (AST/SGOT) 61H, Alanine Aminotransferase (ALT/SGPT) 208H, Alkaline Phosphatase 565H, Total Protein 6.6, Albumin 1.8L, Globulin 4.8, Albumin/Globulin Ratio 0.4L Height (Feet): 5 Height (Inches): 2.00 Weight (Pounds): 188 General Appearance: no apparent distress Neck: normal alignment Cardiovascular: normal rate Respiratory/Chest: decreased breath sounds Abdomen: normal bowel sounds Objective Current Medications Medications (Trade) Dose Ordered Sig/Greta Route PRN Reason Start Time Stop Time Status Last Admin Dose Admin Acetaminophen (Tylenol) 650 mg Q4H PRN GT T>100.5 03/30/19 09:45 04/29/19 09:44 04/04/19 08:57 Calcitriol (Rocatrol) 0.5 mcg DAILY GT 04/01/19 09:00 05/01/19 08:59 04/04/19 08:57 Chlorhexidine Gluconate (Hetal-Hex 2%) 1 applic DAILY@2000 TOPIC 03/27/19 20:00 04/26/19 19:59 04/04/19 19:45 Dextrose (Dextrose 50%) 25 ml Q30M PRN IV Hypoglycemia 03/28/19 11:30 04/27/19 11:29 Dextrose (Dextrose 50%) 50 ml Q30M PRN IV Hypoglycemia 03/28/19 11:30 04/27/19 11:29 Epoetin John (Epoetin John(ESRD on dialysis)) 10,000 unit THU-THU-THU SUBQ 03/30/19 21:00 04/29/19 20:59 04/04/19 20:32 Guaifenesin (Robitussin) 200 mg Q4H PRN GT For Cough 03/30/19 09:45 04/26/19 11:14 Insulin Aspart (NovoLOG) Q6HR SUBQ 04/03/19 12:00 04/27/19 11:59 04/04/19 23:35 Insulin Detemir (Levemir) 6 units BID SUBQ 03/30/19 09:00 04/27/19 11:59 04/04/19 18:40 Meropenem 500 mg/ Sodium Chloride 55 ml @ 110 mls/hr Q24H IVPB 04/03/19 16:00 04/08/19 15:59 04/04/19 15:10 Midazolam HCl 100 ml @ 0 mls/hr Q24H PRN IV Agitation 03/28/19 00:15 04/10/19 00:14 04/05/19 06:02 Morphine Sulfate (Morphine Sulfate) 2 mg Q2H PRN IVP Severe Pain (Pain Scale 7-10) 04/03/19 20:30 04/10/19 20:29 Nitroglycerin (Ntg) 0.4 mg Q5MIN X 3 DOSES PRN SL Prn Chest Pain 03/26/19 20:15 04/25/19 20:14 Ondansetron HCl (Zofran) 4 mg Q6H PRN IVP Nausea & Vomiting 03/26/19 20:00 04/25/19 19:59 03/30/19 06:20 Pantoprazole (Protonix) 40 mg EVERY 12 HOURS IVP 03/30/19 09:00 04/29/19 08:59 04/04/19 20:32 Polyethylene Glycol (Miralax) 17 gm DAILYPRN PRN ORAL Constipation 03/26/19 20:00 04/25/19 19:59 Thiamine HCl 100 mg/Sodium Chloride 56 ml @ 112 mls/hr DAILY IVPB 03/29/19 09:00 04/28/19 08:59 04/04/19 08:57 Vitamin D (Vitamin D) 2,000 intlu DAILY GT 04/01/19 09:00 04/29/19 09:59 04/04/19 08:57 Joseph Saleem MD Apr 05, 2019 06:37
[2019-04-05] MEDS: Pantoprazole Inj IVP SCH ×2 (08:39→20:41)
[2019-04-05] MEDS: Vitamin D 1000 IU Tab GT SCH (08:39)
[2019-04-05] MEDS: Thiamine HCl 100 MG in NS 55 ML IVPB SCH (08:40)
[2019-04-05] MEDS: Levemir Flexpen SUBQ SCH ×2 (08:40→18:00)
[2019-04-05] MEDS: CALCITRIOL 1 MCG/ML GT SCH (08:40)
[2019-04-05] MEDS: Morphine Sulfate 2mg/ml Inj(IV/IM USE ONLY) IVP PRN ×3 (08:52→17:04)
[2019-04-05] MEDS ORDERED: Propofol 200mg/20ml IV ONE (10:42)
--- NOTE | 2019-04-05 11:01 | Pre-Procedure Note/Attestation ---
Pre-Procedure Note/Attestation Complete Prior to Procedure Planned Procedure: not applicable Procedure Narrative: egd Indications for Procedure Pre-Operative Diagnosis: gib Attestation I attest that I discussed the nature of the procedure; its benefits; risks and complications; and alternatives (and the risks and benefits of such alternatives ), prior to the procedure, with the patient (or the patient's legal parts representative). I attest that, if there was a reasonable possibility of needing a blood transfusion, the patient (or the patient's legal parts representative) was given the [facility] standardized written summary, pursuant to the Mauricio Tasneem Blood Safety Act ([place] Health and Safety Code # 1645, as amended). I attest that I re-evaluated the patient just prior to the surgery and that there has been no change in the patient's H&P, except as documented below: Monty Jaimes MD Apr 05, 2019 11:01
--- NOTE | 2019-04-05 11:10 | Endoscopy Procedure Note ---
Endoscopy Procedure Note General Indication for Procedure: gib Procedures Performed: EGD Operative Findings/Diagnosis: gastritris Specimen: yes Pt Tolerated Procedure Well: Yes Estimated Blood Loss: none Anesthesia Anesthesiologist: louisa Anesthesia: MAC Inserted Devices Implant(s) used?: No GI Core Measures 50 yrs or older w/o bx or poly: Not Applicable 10yrs. F/U recommended: Not Applicable Monty Jaimes MD Apr 05, 2019 11:10
--- NOTE | 2019-04-05 12:02 | Anethesia Preoperative Eval ---
Anesthesia Pre-op PMH/ROS General Date of Evaluation: Apr 05, 2019 Time of Evaluation: 10:30 Anesthesiologist: Yenny ASA Score: ASA 3 Mallampati Score Class I : Soft palate, uvula, fauces, pillars visible Class II: Soft palate, uvula, fauces visible Class III: Soft palate, base of uvula visible Class IV: Only hard plate visible Mallampati Classification: Class III Surgeon: Theodore Diagnosis: Anemia Surgical Procedure: EGD Anesthesia History: none Social History: alcohol use - h/o abuse Family History: no anesthesia problems Allergies: Coded Allergies: No Known Allergies (Unverified , 08/04/18) Medications: see eMAR Patient NPO?: Yes Past Medical History Cardiovascular: Reports: HTN; Denies: CAD, [place], valve dz, arrhythmia, other Pulmonary: Reports: other - respiratory failure; Denies: asthma, COPD, DAVID Gastrointestinal/Genitourinary: Reports: GERD, other - recurrent abdominal pain pancreatitis; Denies: CRI, ESRD Neurologic/Psychiatric: Reports: depression/anxiety; Denies: dementia, CVA, TIA, other Endocrine: Reports: DM - poorly controled, admitted with DKA; Denies: hypothyroidism, steroids, other HEENT: Denies: cataract (L), cataract (R), glaucoma, [place] (L), [place] (R), other Hematology/Immune: Reports: anemia Musculoskeletal/Integumentary: Denies: OA, RA, DJD, DDD, edema, other Other: obesity PMH Narrative: as above PSxH Narrative: Hernia repairs Anesthesia Pre-op Phys. Exam Physician Exam Last Vital Signs Date Time Temp Pulse Resp B/P (MAP) Pulse Ox O2 Delivery O2 Flow Rate FiO2 04/05/19 11:22 103 28 40 04/05/19 11:00 159/86 100 Mechanical Ventilator 04/05/19 10:51 99.0 04/05/19 10:05 4.0 Constitutional: NAD Neurologic: other - unable to obtaine Cardiovascular: RRR, no M/R/G Respiratory: other - intubated, bilateral cracles and rhales Gastrointestinal: other - obesity Airway Exam Mallampati Score: Class III MO: limited Neck: short ROM: limited Teeth: missing, broken, other - severe paradontosis Dentures: no upper, no lower Anesthesia Pre-op A/P Labs Hematology Test 04/05/19 03:40 White Blood Count 15.0 K/UL (4.8-10.8) H Red Blood Count 2.52 M/UL (4.20-5.40) L Hemoglobin 7.7 G/DL (12.0-16.0) L Hematocrit 23.2 % (37.0-47.0) L Mean Corpuscular Volume 92 FL (80-99) Mean Corpuscular Hemoglobin 30.7 PG (27.0-31.0) Mean Corpuscular Hemoglobin Concent 33.3 G/DL (32.0-36.0) Red Cell Distribution Width 17.8 % (11.6-14.8) H Platelet Count 210 K/UL (150-450) Mean Platelet Volume 7.2 FL (6.5-10.1) Neutrophils (%) (Auto) % (45.0-75.0) Lymphocytes (%) (Auto) % (20.0-45.0) Monocytes (%) (Auto) % (1.0-10.0) Eosinophils (%) (Auto) % (0.0-3.0) Basophils (%) (Auto) % (0.0-2.0) Differential Total Cells Counted 100 Neutrophils % (Manual) 77 % (45-75) H Lymphocytes % (Manual) 12 % (20-45) L Monocytes % (Manual) 8 % (1-10) Eosinophils % (Manual) 0 % (0-3) Basophils % (Manual) 0 % (0-2) Band Neutrophils 3 % (0-8) Platelet Estimate Adequate Platelet Morphology Normal Polychromasia 1+ Anisocytosis 1+ Chemistry Test 04/05/19 03:40 Sodium Level 142 MMOL/L (136-145) Potassium Level 3.6 MMOL/L (3.5-5.1) Chloride Level 107 MMOL/L (98-107) Carbon Dioxide Level 27 MMOL/L (21-32) Anion Gap 8 mmol/L (5-15) Blood Urea Nitrogen 25 mg/dL (7-18) H Creatinine 2.5 MG/DL (0.55-1.30) H Estimat Glomerular Filtration Rate 25.7 mL/min (>60) Glucose Level 119 MG/DL (74-106) H Calcium Level 9.0 MG/DL (8.5-10.1) Total Bilirubin 0.7 MG/DL (0.2-1.0) Aspartate Amino Transf (AST/SGOT) 61 U/L (15-37) H Alanine Aminotransferase (ALT/SGPT) 208 U/L (12-78) H Alkaline Phosphatase 565 U/L (46-116) H Total Protein 6.6 G/DL (6.4-8.2) Albumin 1.8 G/DL (3.4-5.0) L Globulin 4.8 g/dL Albumin/Globulin Ratio 0.4 (1.0-2.7) L Studies Pre-op Studies: EKG - SR Risk Assessment & Plan Assessment: ASA 3 Plan: MAC Status Change Before Surgery: Keenan Howard MD Apr 05, 2019 12:02
--- NOTE | 2019-04-05 12:04 | Immediate Post-Op Evaluation ---
Immediate Post-Op Evalulation Immediate Post-Op Evalulation Procedure: EGD with Bx. Date of Evaluation: Apr 05, 2019 Time of Evaluation: 11:16 IV Fluids: 100 Blood Products: none Estimated Blood Loss: none Urinary Output: none Blood Pressure Systolic: 142 Blood Pressure Diastolic: 76 Pulse Rate: 98 Respiratory Rate: 20 O2 Sat by Pulse Oximetry: 98 Temperature (Fahrenheit): 97.6 Pain Score (1-10): 1 Nausea: No Vomiting: No Complications none Patient Status: reacts, ventilated, none Hydration Status: adequate Keenan Ramon MD Apr 05, 2019 12:04
--- NOTE | 2019-04-05 12:05 | 48 Hour Post Anesthesia Eval ---
Post Anesthesia Evaluation Procedure: EGD with Bx. Date of Evaluation: Apr 05, 2019 Time of Evaluation: 12:04 Blood Pressure Systolic: 142 0: 76 Pulse Rate: 86 Respiratory Rate: 18 Temperature (Fahrenheit): 97.6 O2 Sat by Pulse Oximetry: 98 Airway: other - intubated Nausea: No Vomiting: No Pain Intensity: 2 Hydration Status: adequate Cardiopulmonary Status: stable Mental Status/LOC: patient returned to baseline Follow-up Care/Observations: n/a Post-Anesthesia Complications: none Follow-up care needed: N/A Keenan Ramon MD Apr 05, 2019 12:05
--- NOTE | 2019-04-05 13:57 | Nephrology Progress Note ---
Assessment/Plan Problem List: (1) Acute renal failure (ARF) (2) Respiratory failure (3) DKA (diabetic ketoacidoses) (4) LFT elevation (5) Electrolyte imbalance Assessment: Low Mag and Low Ca (6) Thrombocytopathia Assessment Acute respiratory failure Acute renal failure high LFTs, thrombocytopenia ? HUS ? 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 Ca and Mag IV Vit K Vit D Echo Hyperkinetic wall motion. Left ventricular ejection fraction estimated to be 55-60 %. Moderate left ventricular hypertrophy by 2D. Abd CT: Evidence of acute on chronic pancreatitis. No pseudocyst. Hepatomegaly with severe steatosis. Subjective ROS Limited/Unobtainable: Yes Objective Objective Last 24 Hour Vital Signs Date Time Temp Pulse Resp B/P (MAP) Pulse Ox O2 Delivery O2 Flow Rate FiO2 04/05/19 13:00 102 22 155/100 100 Mechanical Ventilator 40 04/05/19 13:00 22 Mechanical Ventilator 40 04/05/19 12:58 102 26 40 04/05/19 12:35 99.0 04/05/19 12:05 86 18 98 04/05/19 12:04 98 20 98 04/05/19 12:00 99.0 105 24 154/92 99 Mechanical Ventilator 40 04/05/19 12:00 Mechanical Ventilator 04/05/19 12:00 24 Mechanical Ventilator 40 04/05/19 12:00 40 04/05/19 12:00 96 04/05/19 11:22 103 28 40 04/05/19 11:00 23 Mechanical Ventilator 40 04/05/19 11:00 100 23 159/86 100 Mechanical Ventilator 40 04/05/19 10:51 99.0 04/05/19 10:05 19 Mechanical Ventilator 4.0 40 04/05/19 10:00 108 21 167/103 96 Mechanical Ventilator 40 04/05/19 09:00 19 Mechanical Ventilator 40 04/05/19 09:00 105 27 40 04/05/19 09:00 108 19 165/106 96 Mechanical Ventilator 40 04/05/19 08:00 102 04/05/19 08:00 Mechanical Ventilator 04/05/19 08:00 24 Mechanical Ventilator 40 04/05/19 08:00 99.0 104 24 163/100 98 Mechanical Ventilator 40 04/05/19 08:00 40 04/05/19 07:05 104 27 40 04/05/19 07:00 24 Mechanical Ventilator 45 04/05/19 07:00 108 24 163/101 100 Mechanical Ventilator 45 04/05/19 06:45 23 Mechanical Ventilator 45 04/05/19 06:30 105 26 164/98 99 Mechanical Ventilator 45 04/05/19 06:30 107 23 04/05/19 06:02 23 Mechanical Ventilator 45 04/05/19 06:00 24 Mechanical Ventilator 45 04/05/19 06:00 107 24 160/99 99 Mechanical Ventilator 45 04/05/19 05:30 102 25 161/98 100 Mechanical Ventilator 45 04/05/19 05:10 104 26 45 04/05/19 05:00 21 Mechanical Ventilator 45 04/05/19 05:00 105 21 166/103 100 Mechanical Ventilator 45 04/05/19 04:30 107 26 165/98 100 Mechanical Ventilator 45 04/05/19 04:00 Mechanical Ventilator 04/05/19 04:00 45 04/05/19 04:00 23 Mechanical Ventilator 45 04/05/19 04:00 99.0 104 23 158/92 83 Mechanical Ventilator 45 04/05/19 03:42 91 04/05/19 03:30 96 26 150/93 99 Mechanical Ventilator 45 04/05/19 03:00 98 25 142/93 100 Mechanical Ventilator 45 04/05/19 03:00 25 Mechanical Ventilator 45 04/05/19 02:53 97 26 45 04/05/19 02:37 21 Mechanical Ventilator 45 04/05/19 02:30 100 26 135/94 99 Mechanical Ventilator 45 04/05/19 02:00 25 Mechanical Ventilator 45 04/05/19 02:00 104 25 161/101 100 Mechanical Ventilator 45 04/05/19 01:30 110 28 151/98 100 Mechanical Ventilator 45 04/05/19 01:15 119 35 45 04/05/19 01:00 27 Mechanical Ventilator 45 04/05/19 01:00 115 27 155/104 100 Mechanical Ventilator 45 04/05/19 00:30 121 25 161/105 100 Mechanical Ventilator 45 04/05/19 00:00 45 04/05/19 00:00 24 Mechanical Ventilator 45 04/05/19 00:00 Mechanical Ventilator 04/05/19 00:00 99.1 111 24 168/100 100 Mechanical Ventilator 45 04/04/19 23:30 107 25 156/98 100 Mechanical Ventilator 45 04/04/19 23:25 105 28 45 04/04/19 23:20 23 Mechanical Ventilator 45 04/04/19 23:06 105 04/04/19 23:00 25 Mechanical Ventilator 45 04/04/19 23:00 108 25 153/101 100 Mechanical Ventilator 45 04/04/19 22:30 109 22 155/93 100 Mechanical Ventilator 45 04/04/19 22:00 106 22 144/96 100 Mechanical Ventilator 45 04/04/19 22:00 30 Mechanical Ventilator 45 04/04/19 21:30 108 26 159/107 99 Mechanical Ventilator 45 04/04/19 21:05 102 26 45 04/04/19 21:00 104 29 136/101 99 Mechanical Ventilator 45 04/04/19 21:00 28 Mechanical Ventilator 45 04/04/19 20:45 104 33 140/100 99 Mechanical Ventilator 45 04/04/19 20:30 107 31 142/97 98 Mechanical Ventilator 45 04/04/19 20:08 116 24 151/105 98 Mechanical Ventilator 45 04/04/19 20:00 27 Mechanical Ventilator 45 04/04/19 20:00 45 04/04/19 20:00 Mechanical Ventilator 04/04/19 20:00 99.5 120 27 164/108 97 Mechanical Ventilator 45 04/04/19 19:48 118 04/04/19 19:46 27 Mechanical Ventilator 45 04/04/19 19:45 122 26 161/115 99 Mechanical Ventilator 45 04/04/19 19:30 123 27 162/105 99 Mechanical Ventilator 45 04/04/19 19:29 31 Mechanical Ventilator 45 04/04/19 19:22 123 28 45 04/04/19 19:15 124 32 158/104 98 Mechanical Ventilator 45 04/04/19 19:00 125 22 126/61 98 Mechanical Ventilator 45 04/04/19 19:00 30 Mechanical Ventilator 45 04/04/19 18:45 125 31 159/102 96 Mechanical Ventilator 55 04/04/19 18:30 129 25 159/110 96 Mechanical Ventilator 55 04/04/19 18:15 134 25 164/115 98 Mechanical Ventilator 55 04/04/19 18:00 135 33 170/108 98 Mechanical Ventilator 55 04/04/19 18:00 30 Mechanical Ventilator 45 04/04/19 17:45 130 29 153/105 97 Mechanical Ventilator 55 04/04/19 17:30 27 Mechanical Ventilator 45 04/04/19 17:30 131 20 195/114 96 Mechanical Ventilator 55 04/04/19 17:15 134 35 167/100 98 Mechanical Ventilator 55 04/04/19 17:00 129 28 163/93 97 Mechanical Ventilator 55 04/04/19 17:00 27 Mechanical Ventilator 45 04/04/19 16:25 121 31 45 04/04/19 16:00 55 04/04/19 16:00 26 Mechanical Ventilator 55 04/04/19 16:00 100.1 110 26 140/94 100 Mechanical Ventilator 55 04/04/19 16:00 Mechanical Ventilator 04/04/19 15:49 109 04/04/19 15:18 108 34 55 04/04/19 15:15 114 26 146/91 100 Mechanical Ventilator 55 04/04/19 15:00 30 Mechanical Ventilator 55 04/04/19 15:00 116 26 157/97 100 Mechanical Ventilator 55 04/04/19 14:30 117 26 153/96 100 Mechanical Ventilator 55 04/04/19 14:00 100.2 118 29 147/102 98 Mechanical Ventilator 55 04/04/19 14:00 26 Mechanical Ventilator 55 Intake and Output 04/04/19 04/05/19 19:00 07:00 Intake Total 977.667 ml 726 ml Output Total 925 ml 835 ml Balance 52.667 ml -109 ml Free Water 300 ml 100 ml IV Total 227.667 ml 376 ml Tube Feeding 450 ml 250 ml Output Urine Total 925 ml 835 ml # Bowel Movements 2 4 Laboratory Tests 04/05/19 03:40: White Blood Count 15.0H, Red Blood Count 2.52L, Hemoglobin 7.7L, Hematocrit 23.2L, Mean Corpuscular Volume 92, Mean Corpuscular Hemoglobin 30.7, Mean Corpuscular Hemoglobin Concent 33.3, Red Cell Distribution Width 17.8H, Platelet Count 210, Mean Platelet Volume 7.2, Neutrophils (%) (Auto) , Lymphocytes (%) (Auto) , Monocytes (%) (Auto) , Eosinophils (%) (Auto) , Basophils (%) (Auto) , Differential Total Cells Counted 100, Neutrophils % ( Manual) 77H, Lymphocytes % (Manual) 12L, Monocytes % (Manual) 8, Eosinophils % ( Manual) 0, Basophils % (Manual) 0, Band Neutrophils 3, Platelet Estimate Adequate, Platelet Morphology Normal, Polychromasia 1+, Anisocytosis 1+, Sodium Level 142, Potassium Level 3.6, Chloride Level 107, Carbon Dioxide Level 27, Anion Gap 8, Blood Urea Nitrogen 25H, Creatinine 2.5H, Estimat Glomerular Filtration Rate 25.7, Glucose Level 119H, Calcium Level 9.0, Total Bilirubin 0.7 , Aspartate Amino Transf (AST/SGOT) 61H, Alanine Aminotransferase (ALT/SGPT) 208H, Alkaline Phosphatase 565H, Total Protein 6.6, Albumin 1.8L, Globulin 4.8, Albumin/Globulin Ratio 0.4L Height (Feet): 5 Height (Inches): 2.00 Weight (Pounds): 188 General Appearance: no apparent distress EENT: other - vented Cardiovascular: tachycardia Respiratory/Chest: decreased breath sounds Abdomen: distended Objective no change Amrit Lopez MD Apr 05, 2019 13:57
--- NOTE | 2019-04-05 14:28 | Infectious Diseases Prog Note ---
Assessment/Plan Assessment/Plan Assessment: Sepsis vs SIRS- r/o bacteremia, UTI -04/02 BCx NTD sp cx MDR ABC (S bactrim) GNB #2, #3 u/a wbc 15-20, n it neg, leuk +2; ucx p Fever, improving Leukocytosis, worsened, now improving Probable PNA -04/03 CXR: Extensive parenchymal consolidation, left lung greater than right, similar to prior. -04/01 CXR: Possible new or increased right pleural effusion. Otherwise unchanged over 3 days as described, including bilateral pulmonary interstitial and airspace edema versus infiltrates -03/28 sp cx normal resp elodia -11/30 u/a neg; ucx 20-30k uro elodia -Influenza sc neg Acute on chronic pancreatitis -CT abd/p: Evidence of acute on chronic pancreatitis. No pseudocyst. Hepatomegaly with severe steatosis. Mild hiatal hernia. AVINASH, improving -Renal US: Negative ultrasound the kidneys. Shock liver; LFTs improving -Abd US: No acute findings. Questionable mild pericholecystic fluid -acute hep panel neg -HIV ab sc neg Dm2 HTN tobacco and ETOH abuse COPD pancreatitis s/p multiple hernia operations x3 -first two in 2015; Last repair May 2018 with mesh placement at [facility] in [place] obesity Plan: -Continue empiric Meropenem #4 and add PO Bactrim for MDR ABC -04/04 SP IV Vancomycin #8 -04/02 SP Zosyn #6 -f/u cx -Monitor CBC/CMP, temperatures -f/u ucx, Bcx x2, sp cx -ETT/ICU care -aspiration precautions Thank you for this consultation. Will continue to follow along with you. Discussed with RN Subjective Allergies: Coded Allergies: No Known Allergies (Unverified , 08/04/18) Subjective Tm 100.1; afebrile ~24hrs BCx NTD Objective Vital Signs Last 24 Hour Vital Signs Date Time Temp Pulse Resp B/P (MAP) Pulse Ox O2 Delivery O2 Flow Rate FiO2 04/05/19 13:59 22 Mechanical Ventilator 40 04/05/19 13:00 102 22 155/100 100 Mechanical Ventilator 40 04/05/19 13:00 22 Mechanical Ventilator 40 04/05/19 12:58 102 26 40 04/05/19 12:35 99.0 04/05/19 12:05 86 18 98 04/05/19 12:04 98 20 98 04/05/19 12:00 99.0 105 24 154/92 99 Mechanical Ventilator 40 04/05/19 12:00 Mechanical Ventilator 04/05/19 12:00 24 Mechanical Ventilator 40 04/05/19 12:00 40 04/05/19 12:00 96 04/05/19 11:22 103 28 40 04/05/19 11:00 23 Mechanical Ventilator 40 04/05/19 11:00 100 23 159/86 100 Mechanical Ventilator 40 04/05/19 10:51 99.0 04/05/19 10:05 19 Mechanical Ventilator 4.0 40 04/05/19 10:00 108 21 167/103 96 Mechanical Ventilator 40 04/05/19 09:00 19 Mechanical Ventilator 40 04/05/19 09:00 105 27 40 04/05/19 09:00 108 19 165/106 96 Mechanical Ventilator 40 04/05/19 08:00 102 04/05/19 08:00 Mechanical Ventilator 04/05/19 08:00 24 Mechanical Ventilator 40 04/05/19 08:00 99.0 104 24 163/100 98 Mechanical Ventilator 40 04/05/19 08:00 40 04/05/19 07:05 104 27 40 04/05/19 07:00 24 Mechanical Ventilator 45 04/05/19 07:00 108 24 163/101 100 Mechanical Ventilator 45 04/05/19 06:45 23 Mechanical Ventilator 45 04/05/19 06:30 105 26 164/98 99 Mechanical Ventilator 45 04/05/19 06:30 107 23 04/05/19 06:02 23 Mechanical Ventilator 45 04/05/19 06:00 24 Mechanical Ventilator 45 04/05/19 06:00 107 24 160/99 99 Mechanical Ventilator 45 04/05/19 05:30 102 25 161/98 100 Mechanical Ventilator 45 04/05/19 05:10 104 26 45 04/05/19 05:00 21 Mechanical Ventilator 45 04/05/19 05:00 105 21 166/103 100 Mechanical Ventilator 45 04/05/19 04:30 107 26 165/98 100 Mechanical Ventilator 45 04/05/19 04:00 Mechanical Ventilator 04/05/19 04:00 45 04/05/19 04:00 23 Mechanical Ventilator 45 04/05/19 04:00 99.0 104 23 158/92 83 Mechanical Ventilator 45 04/05/19 03:42 91 04/05/19 03:30 96 26 150/93 99 Mechanical Ventilator 45 04/05/19 03:00 98 25 142/93 100 Mechanical Ventilator 45 04/05/19 03:00 25 Mechanical Ventilator 45 04/05/19 02:53 97 26 45 04/05/19 02:37 21 Mechanical Ventilator 45 04/05/19 02:30 100 26 135/94 99 Mechanical Ventilator 45 04/05/19 02:00 25 Mechanical Ventilator 45 04/05/19 02:00 104 25 161/101 100 Mechanical Ventilator 45 04/05/19 01:30 110 28 151/98 100 Mechanical Ventilator 45 04/05/19 01:15 119 35 45 04/05/19 01:00 27 Mechanical Ventilator 45 04/05/19 01:00 115 27 155/104 100 Mechanical Ventilator 45 04/05/19 00:30 121 25 161/105 100 Mechanical Ventilator 45 04/05/19 00:00 45 04/05/19 00:00 24 Mechanical Ventilator 45 04/05/19 00:00 Mechanical Ventilator 04/05/19 00:00 99.1 111 24 168/100 100 Mechanical Ventilator 45 04/04/19 23:30 107 25 156/98 100 Mechanical Ventilator 45 04/04/19 23:25 105 28 45 04/04/19 23:20 23 Mechanical Ventilator 45 04/04/19 23:06 105 04/04/19 23:00 25 Mechanical Ventilator 45 04/04/19 23:00 108 25 153/101 100 Mechanical Ventilator 45 04/04/19 22:30 109 22 155/93 100 Mechanical Ventilator 45 04/04/19 22:00 106 22 144/96 100 Mechanical Ventilator 45 04/04/19 22:00 30 Mechanical Ventilator 45 04/04/19 21:30 108 26 159/107 99 Mechanical Ventilator 45 04/04/19 21:05 102 26 45 04/04/19 21:00 104 29 136/101 99 Mechanical Ventilator 45 04/04/19 21:00 28 Mechanical Ventilator 45 04/04/19 20:45 104 33 140/100 99 Mechanical Ventilator 45 04/04/19 20:30 107 31 142/97 98 Mechanical Ventilator 45 04/04/19 20:08 116 24 151/105 98 Mechanical Ventilator 45 04/04/19 20:00 27 Mechanical Ventilator 45 04/04/19 20:00 45 04/04/19 20:00 Mechanical Ventilator 04/04/19 20:00 99.5 120 27 164/108 97 Mechanical Ventilator 45 04/04/19 19:48 118 04/04/19 19:46 27 Mechanical Ventilator 45 04/04/19 19:45 122 26 161/115 99 Mechanical Ventilator 45 04/04/19 19:30 123 27 162/105 99 Mechanical Ventilator 45 04/04/19 19:29 31 Mechanical Ventilator 45 04/04/19 19:22 123 28 45 04/04/19 19:15 124 32 158/104 98 Mechanical Ventilator 45 04/04/19 19:00 125 22 126/61 98 Mechanical Ventilator 45 04/04/19 19:00 30 Mechanical Ventilator 45 04/04/19 18:45 125 31 159/102 96 Mechanical Ventilator 55 04/04/19 18:30 129 25 159/110 96 Mechanical Ventilator 55 04/04/19 18:15 134 25 164/115 98 Mechanical Ventilator 55 04/04/19 18:00 135 33 170/108 98 Mechanical Ventilator 55 04/04/19 18:00 30 Mechanical Ventilator 45 04/04/19 17:45 130 29 153/105 97 Mechanical Ventilator 55 04/04/19 17:30 27 Mechanical Ventilator 45 04/04/19 17:30 131 20 195/114 96 Mechanical Ventilator 55 04/04/19 17:15 134 35 167/100 98 Mechanical Ventilator 55 04/04/19 17:00 129 28 163/93 97 Mechanical Ventilator 55 04/04/19 17:00 27 Mechanical Ventilator 45 04/04/19 16:25 121 31 45 04/04/19 16:00 55 04/04/19 16:00 26 Mechanical Ventilator 55 04/04/19 16:00 100.1 110 26 140/94 100 Mechanical Ventilator 55 04/04/19 16:00 Mechanical Ventilator 04/04/19 15:49 109 04/04/19 15:18 108 34 55 04/04/19 15:15 114 26 146/91 100 Mechanical Ventilator 55 04/04/19 15:00 30 Mechanical Ventilator 55 04/04/19 15:00 116 26 157/97 100 Mechanical Ventilator 55 04/04/19 14:30 117 26 153/96 100 Mechanical Ventilator 55 Height (Feet): 5 Height (Inches): 2.00 Weight (Pounds): 188 Objective GENERAL: The patient is a well-developed, well-nourished, obese female, in no apparent distress. HEENT: Eyes, pupils equal and responsive to light and accommodation. Extraocular movements are intact. NECK: Supple. No lymphadenopathy. CHEST: Lungs are clear to auscultation bilaterally without wheezes or rales. CARDIOVASCULAR: Regular rate. S1, S2 normal without murmurs, rubs, or gallops. ABDOMEN: Soft, tender to palpation in the epigastric region, with decreased bowel sounds. There is tenderness to palpation in the epigastric region. There is no rebound or guarding noted. EXTREMITIES: Negative for clubbing, cyanosis, or edema. Microbiology Date/Time Source Procedure Growth Status 04/03/19 03:40 Urine,Clean Catch Urine Culture - Preliminary Resulted Laboratory Tests Test 04/05/19 03:40 White Blood Count 15.0 K/UL (4.8-10.8) H Red Blood Count 2.52 M/UL (4.20-5.40) L Hemoglobin 7.7 G/DL (12.0-16.0) L Hematocrit 23.2 % (37.0-47.0) L Mean Corpuscular Volume 92 FL (80-99) Mean Corpuscular Hemoglobin 30.7 PG (27.0-31.0) Mean Corpuscular Hemoglobin Concent 33.3 G/DL (32.0-36.0) Red Cell Distribution Width 17.8 % (11.6-14.8) H Platelet Count 210 K/UL (150-450) Mean Platelet Volume 7.2 FL (6.5-10.1) Neutrophils (%) (Auto) % (45.0-75.0) Lymphocytes (%) (Auto) % (20.0-45.0) Monocytes (%) (Auto) % (1.0-10.0) Eosinophils (%) (Auto) % (0.0-3.0) Basophils (%) (Auto) % (0.0-2.0) Differential Total Cells Counted 100 Neutrophils % (Manual) 77 % (45-75) H Lymphocytes % (Manual) 12 % (20-45) L Monocytes % (Manual) 8 % (1-10) Eosinophils % (Manual) 0 % (0-3) Basophils % (Manual) 0 % (0-2) Band Neutrophils 3 % (0-8) Platelet Estimate Adequate Platelet Morphology Normal Polychromasia 1+ Anisocytosis 1+ Sodium Level 142 MMOL/L (136-145) Potassium Level 3.6 MMOL/L (3.5-5.1) Chloride Level 107 MMOL/L (98-107) Carbon Dioxide Level 27 MMOL/L (21-32) Anion Gap 8 mmol/L (5-15) Blood Urea Nitrogen 25 mg/dL (7-18) H Creatinine 2.5 MG/DL (0.55-1.30) H Estimat Glomerular Filtration Rate 25.7 mL/min (>60) Glucose Level 119 MG/DL (74-106) H Calcium Level 9.0 MG/DL (8.5-10.1) Total Bilirubin 0.7 MG/DL (0.2-1.0) Aspartate Amino Transf (AST/SGOT) 61 U/L (15-37) H Alanine Aminotransferase (ALT/SGPT) 208 U/L (12-78) H Alkaline Phosphatase 565 U/L (46-116) H Total Protein 6.6 G/DL (6.4-8.2) Albumin 1.8 G/DL (3.4-5.0) L Globulin 4.8 g/dL Albumin/Globulin Ratio 0.4 (1.0-2.7) L Current Medications Medications (Trade) Dose Ordered Sig/Greta Route PRN Reason Start Time Stop Time Status Last Admin Dose Admin Acetaminophen (Tylenol) 650 mg Q4H PRN GT T>100.5 03/30/19 09:45 04/29/19 09:44 04/04/19 08:57 Calcitriol (Rocatrol) 0.5 mcg DAILY GT 04/01/19 09:00 05/01/19 08:59 04/05/19 08:40 Chlorhexidine Gluconate (Hetal-Hex 2%) 1 applic DAILY@1999 TOPIC 03/27/19 20:00 04/26/19 19:59 04/04/19 19:45 Dextrose (Dextrose 50%) 25 ml Q30M PRN IV Hypoglycemia 03/28/19 11:30 04/27/19 11:29 Dextrose (Dextrose 50%) 50 ml Q30M PRN IV Hypoglycemia 03/28/19 11:30 04/27/19 11:29 Epoetin John (Epoetin John(ESRD on dialysis)) 10,000 unit THU-THU SUBQ 03/30/19 21:00 04/29/19 20:59 04/04/19 20:32 Guaifenesin (Robitussin) 200 mg Q4H PRN GT For Cough 03/30/19 09:45 04/26/19 11:14 Insulin Aspart (NovoLOG) Q6HR SUBQ 04/03/19 12:00 04/27/19 11:59 04/05/19 12:06 Insulin Detemir (Levemir) 6 units BID SUBQ 03/30/19 09:00 04/27/19 11:59 04/04/19 18:40 Meropenem 500 mg/ Sodium Chloride 55 ml @ 110 mls/hr Q24H IVPB 04/03/19 16:00 04/08/19 15:59 04/04/19 15:10 Midazolam HCl 100 ml @ 0 mls/hr Q24H PRN IV Agitation 03/28/19 00:15 04/10/19 00:14 04/05/19 13:59 Morphine Sulfate (Morphine Sulfate) 2 mg Q2H PRN IVP Severe Pain (Pain Scale 7-10) 04/03/19 20:30 04/10/19 20:29 04/05/19 12:05 Nitroglycerin (Ntg) 0.4 mg Q5MIN X 3 DOSES PRN SL Prn Chest Pain 03/26/19 20:15 04/25/19 20:14 Ondansetron HCl (Zofran) 4 mg Q6H PRN IVP Nausea & Vomiting 03/26/19 20:00 04/25/19 19:59 03/30/19 06:20 Pantoprazole (Protonix) 40 mg EVERY 12 HOURS IVP 03/30/19 09:00 04/29/19 08:59 04/05/19 08:39 Polyethylene Glycol (Miralax) 17 gm DAILYPRN PRN ORAL Constipation 03/26/19 20:00 04/25/19 19:59 Thiamine HCl 100 mg/Sodium Chloride 56 ml @ 112 mls/hr DAILY IVPB 03/29/19 09:00 04/28/19 08:59 04/05/19 08:40 Vitamin D (Vitamin D) 2,000 intlu DAILY GT 04/01/19 09:00 04/29/19 09:59 04/05/19 08:39 Lazara Dozier M.D. Apr 05, 2019 14:28
[2019-04-05] MEDS ORDERED: Bactrim-DS 1 tab ORAL SCH (16:00)
[2019-04-05] MEDS ORDERED: NS 275ml ONE (16:15)
--- NOTE | 2019-04-05 16:30 | Procedure Note ---
DATE OF PROCEDURE: 04/05/2019 SURGEON: Monty Jaimes M.D. PROCEDURE: Upper endoscopy with biopsy. ANESTHESIA: Per Dr. Ramon. INSTRUMENT: Olympus adult flexible upper endoscope. INDICATION: Upper GI bleeding. REASON FOR PROCEDURE: The procedure, risks, benefits, and possible consequences, including hemorrhage, aspiration, perforation and infection, and alternative treatments, were explained to the patient/legal guardian by Dr. Monty Jaimes and the patient/legal guardian understood and accepted these risks. DESCRIPTION OF PROCEDURE: After informed consent was obtained and the patient was adequately sedated, Olympus upper endoscope was advanced from mouth to the second portion of the duodenum and retroflexion was performed in the stomach. The patient has evidence of diffuse gastritis. Random biopsy from antrum was obtained to rule out H. pylori infection. Otherwise, the rest of the upper endoscopic examination grossly within normal limits. No evidence of any active bleeding. No evidence of ulceration. No obvious duodenal ulceration. At this time, random biopsy from the body of the stomach was obtained and the procedure was terminated. SUMMARY OF FINDINGS: Gastritis, otherwise normal upper endoscopic examination. RECOMMENDATIONS: 1. Follow up biopsy results and treat accordingly. 2. Resume G-tube feeding. 3. If the patient continues to have evidence of GI bleeding, might benefit from colonoscopy. 4. We will follow. Monty Jaimes M.D. DR: PAUL JOB#: [id number] CC:
[2019-04-05] MEDS: Meropenem 500mg/NS 55ml IVPB SCH ×2 (17:03)
--- NOTE | 2019-04-05 17:54 | Diagnostic Imaging Report ---
Indication: Post nasogastric tube placement Technique: Supine view of the abdomen Comparison: 04/15/2019 Findings: There is a nasogastric tube in place, tip of which projects at the level gastric body. Bowel gas pattern is essentially unremarkable. With a few prominent small bowel loops now filled with gas. A right groin central venous catheter, right chest temporary dialysis catheter again demonstrated. The visualized lower lungs demonstrate extensive interstitial and airspace disease and likely small bilateral pleural effusions. Impression: Satisfactory nasogastric intubation Other findings as noted
--- NOTE | 2019-04-05 18:48 | Internal Med Progress Note ---
Subjective Date of Service: Apr 05, 2019 Physician Name Marshal Gilbert Attending Physician Shree Mcintyre MD Current Medications Medications (Trade) Dose Ordered Sig/Greta Route PRN Reason Start Time Stop Time Status Last Admin Dose Admin Acetaminophen (Tylenol) 650 mg Q4H PRN GT T>100.5 03/30/19 09:45 04/29/19 09:44 04/04/19 08:57 Calcitriol (Rocatrol) 0.5 mcg DAILY GT 04/01/19 09:00 05/01/19 08:59 04/05/19 08:40 Chlorhexidine Gluconate (Hetal-Hex 2%) 1 applic DAILY@2000 TOPIC 03/27/19 20:00 04/26/19 19:59 04/04/19 19:45 Clonidine HCl (Catapres Tab) 0.1 mg Q8H PRN NG For High Blood Pressure 04/05/19 17:30 05/05/19 17:29 Dextrose (Dextrose 50%) 25 ml Q30M PRN IV Hypoglycemia 03/28/19 11:30 04/27/19 11:29 Dextrose (Dextrose 50%) 50 ml Q30M PRN IV Hypoglycemia 03/28/19 11:30 04/27/19 11:29 Epoetin John (Epoetin John(ESRD on dialysis)) 10,000 unit [id number] SUBQ 03/30/19 21:00 04/29/19 20:59 04/04/19 20:32 Fentanyl Citrate 1000 mcg/Sodium Chloride 100 ml @ 0 mls/hr Q24H IV 04/05/19 17:30 04/12/19 17:29 Furosemide (Lasix) 20 mg ONCE IV 04/05/19 18:00 04/05/19 20:00 04/05/19 18:08 Guaifenesin (Robitussin) 200 mg Q4H PRN GT For Cough 03/30/19 09:45 04/26/19 11:14 Hydralazine HCl (Apresoline) 10 mg Q6H PRN IV For High Blood Pressure 04/05/19 17:30 05/05/19 17:29 04/05/19 18:09 Insulin Aspart (NovoLOG) Q6HR SUBQ 04/03/19 12:00 04/27/19 11:59 04/05/19 12:06 Insulin Detemir (Levemir) 6 units BID SUBQ 03/30/19 09:00 04/27/19 11:59 04/04/19 18:40 Lorazepam (Ativan 2mg/ml 1ml) 1 mg Q2H PRN IV For Anxiety 04/05/19 17:30 04/12/19 17:29 Meropenem 500 mg/ Sodium Chloride 55 ml @ 110 mls/hr Q24H IVPB 04/03/19 16:00 04/08/19 15:59 04/05/19 17:03 Midazolam HCl 100 ml @ 0 mls/hr Q24H PRN IV Agitation 03/28/19 00:15 04/10/19 00:14 04/05/19 18:01 Morphine Sulfate (Morphine Sulfate) 2 mg Q2H PRN IVP Severe Pain (Pain Scale 7-10) 04/03/19 20:30 04/10/19 20:29 04/05/19 17:04 Nitroglycerin (Ntg) 0.4 mg Q5MIN X 3 DOSES PRN SL Prn Chest Pain 03/26/19 20:15 04/25/19 20:14 Ondansetron HCl (Zofran) 4 mg Q6H PRN IVP Nausea & Vomiting 03/26/19 20:00 04/25/19 19:59 03/30/19 06:20 Pantoprazole (Protonix) 40 mg EVERY 12 HOURS IVP 03/30/19 09:00 04/29/19 08:59 04/05/19 08:39 Polyethylene Glycol (Miralax) 17 gm DAILYPRN PRN ORAL Constipation 03/26/19 20:00 04/25/19 19:59 Thiamine HCl 100 mg/Sodium Chloride 56 ml @ 112 mls/hr DAILY IVPB 03/29/19 09:00 04/28/19 08:59 04/05/19 08:40 Trimethoprim/ Sulfamethoxazole (Bactrim Single Strength) 1 tab Q24H ORAL 04/06/19 18:00 04/13/19 17:59 Vitamin D (Vitamin D) 2,000 intlu DAILY GT 04/01/19 09:00 04/29/19 09:59 04/05/19 08:39 Allergies: Coded Allergies: No Known Allergies (Unverified , 08/04/18) ROS Limited/Unobtainable: Yes Subjective 43 YO F admitted with diabetic ketoacidosis. Now ARDS and respiratory failure. Intubated and sedated. Cover for Int Jorge-Dr Mcintyre. ICU. Objective Last Vital Signs Date Time Temp Pulse Resp B/P (MAP) Pulse Ox O2 Delivery O2 Flow Rate FiO2 04/05/19 18:41 103 26 40 04/05/19 18:09 174/108 04/05/19 18:01 Mechanical Ventilator 04/05/19 18:00 99 04/05/19 17:56 97.1 04/05/19 10:05 4.0 Laboratory Tests Test 04/05/19 03:40 White Blood Count 15.0 K/UL (4.8-10.8) H Red Blood Count 2.52 M/UL (4.20-5.40) L Hemoglobin 7.7 G/DL (12.0-16.0) L Hematocrit 23.2 % (37.0-47.0) L Mean Corpuscular Volume 92 FL (80-99) Mean Corpuscular Hemoglobin 30.7 PG (27.0-31.0) Mean Corpuscular Hemoglobin Concent 33.3 G/DL (32.0-36.0) Red Cell Distribution Width 17.8 % (11.6-14.8) H Platelet Count 210 K/UL (150-450) Mean Platelet Volume 7.2 FL (6.5-10.1) Neutrophils (%) (Auto) % (45.0-75.0) Lymphocytes (%) (Auto) % (20.0-45.0) Monocytes (%) (Auto) % (1.0-10.0) Eosinophils (%) (Auto) % (0.0-3.0) Basophils (%) (Auto) % (0.0-2.0) Differential Total Cells Counted 100 Neutrophils % (Manual) 77 % (45-75) H Lymphocytes % (Manual) 12 % (20-45) L Monocytes % (Manual) 8 % (1-10) Eosinophils % (Manual) 0 % (0-3) Basophils % (Manual) 0 % (0-2) Band Neutrophils 3 % (0-8) Platelet Estimate Adequate Platelet Morphology Normal Polychromasia 1+ Anisocytosis 1+ Sodium Level 142 MMOL/L (136-145) Potassium Level 3.6 MMOL/L (3.5-5.1) Chloride Level 107 MMOL/L (98-107) Carbon Dioxide Level 27 MMOL/L (21-32) Anion Gap 8 mmol/L (5-15) Blood Urea Nitrogen 25 mg/dL (7-18) H Creatinine 2.5 MG/DL (0.55-1.30) H Estimat Glomerular Filtration Rate 25.7 mL/min (>60) Glucose Level 119 MG/DL (74-106) H Calcium Level 9.0 MG/DL (8.5-10.1) Total Bilirubin 0.7 MG/DL (0.2-1.0) Aspartate Amino Transf (AST/SGOT) 61 U/L (15-37) H Alanine Aminotransferase (ALT/SGPT) 208 U/L (12-78) H Alkaline Phosphatase 565 U/L (46-116) H Total Protein 6.6 G/DL (6.4-8.2) Albumin 1.8 G/DL (3.4-5.0) L Globulin 4.8 g/dL Albumin/Globulin Ratio 0.4 (1.0-2.7) L Microbiology Date/Time Source Procedure Growth Status 04/03/19 03:40 Urine,Clean Catch Urine Culture - Preliminary Resulted Intake and Output 04/04/19 04/05/19 19:00 07:00 Intake Total 977.667 ml 726 ml Output Total 925 ml 835 ml Balance 52.667 ml -109 ml Free Water 300 ml 100 ml IV Total 227.667 ml 376 ml Tube Feeding 450 ml 250 ml Output Urine Total 925 ml 835 ml # Bowel Movements 2 4 Objective General Appearance: WD/WN, moderate distress EENT: PERRL/EOMI, normal ENT inspection Neck: non-tender, normal alignment, normal inspection Cardiovascular: normal peripheral pulses, normal rate, regular rhythm, no gallop/murmur, no JVD Respiratory/Chest: Mech vent; respiratory distress, crackles/rales, rhonchi - bilaterally, expiratory wheezing Abdomen: normal bowel sounds, non tender, soft, no organomegaly, no mass Extremities: normal inspection Edema: trace edema Neurologic: lead military analyst II-XII grossly normal Skin: normal pigmentation Assessment/Plan Assessment/Plan ASSESSMENT: This is a 43-year-old female with: 1. Abdominal pain. 2. Acute on chronic pancreatitis. 3. Diabetic ketoacidosis. 4. Hyperglycemia. 5. Renal failure. 6. Diabetes type 2. 7. Hypertension. 8. Ventral hernia. 9. ARDs/bilateral infiltrates/Respiratory failure 10. Elevated liver funct tests 11. Thrombocytopenia=improving TREATMENT: 1. Abdominal pain/acute pancreatitis. A Gastroenterology consultation has been obtained with Dr. Monty Jaimes. We will follow recommendations of Gastroenterology. The patient is currently NPO. 2. Diabetic ketoacidosis/hyperglycemia. An Endocrinology consultation= Dr. Joseph Saleem. The patient has been placed on an aspart insulin sliding scale and levemir. We will follow recommendations of Endocrinology. 3. Renal failure. A Nephrology consultation has been obtained with Dr. Lopez. Hemodialysis 04/02/19 4. Hypertension. Continue amlodipine as above. 5. Ventral hernia. 6. Mechanical vent per pulmonary=Balfe. Failed weaning today 7. ABX=meropenem and bactrim Marshal Gilbert MD Apr 05, 2019 18:48
[2019-04-05] MEDS: Dyna-Hex 2% Top Sol 2oz TOPIC SCH (19:37)
--- NOTE | 2019-04-05 21:03 | Surgery Progress Note ---
Surgery Progress Note Subjective Procedure Performed right femoral central venous catheter insertion Additional Comments Tachycardic, leukocytosis, anemia. Patient was more agitated today and now is on Versed drip at 15 to keep her more comfortable she was fighting the vent. No nausea vomiting fever chills. Tachycardia. Labs noted. Objective Last 24 Hour Vital Signs Date Time Temp Pulse Resp B/P (MAP) Pulse Ox O2 Delivery O2 Flow Rate FiO2 04/05/19 20:00 40 04/05/19 19:38 23 Mechanical Ventilator 40 04/05/19 19:36 109 04/05/19 19:00 23 Mechanical Ventilator 40 04/05/19 19:00 108 23 177/108 98 Mechanical Ventilator 40 04/05/19 18:47 97.1 04/05/19 18:41 103 26 40 04/05/19 18:09 174/108 04/05/19 18:01 18 Mechanical Ventilator 40 04/05/19 18:00 103 25 188/117 99 Mechanical Ventilator 40 04/05/19 17:56 97.1 04/05/19 17:00 89 18 174/108 100 Mechanical Ventilator 40 04/05/19 17:00 18 Mechanical Ventilator 40 04/05/19 16:56 84 26 40 04/05/19 16:00 92 04/05/19 16:00 97.1 85 26 155/94 100 Mechanical Ventilator 40 04/05/19 16:00 26 Mechanical Ventilator 40 04/05/19 16:00 Mechanical Ventilator 04/05/19 16:00 40 04/05/19 15:00 26 Mechanical Ventilator 40 04/05/19 15:00 90 26 141/96 100 Mechanical Ventilator 40 04/05/19 14:54 90 26 40 04/05/19 14:00 97 25 160/100 100 Mechanical Ventilator 40 04/05/19 13:59 22 Mechanical Ventilator 40 04/05/19 13:00 102 22 155/100 100 Mechanical Ventilator 40 04/05/19 13:00 22 Mechanical Ventilator 40 04/05/19 12:58 102 26 40 04/05/19 12:05 86 18 98 04/05/19 12:04 98 20 98 04/05/19 12:00 99.0 105 24 154/92 99 Mechanical Ventilator 40 04/05/19 12:00 Mechanical Ventilator 04/05/19 12:00 24 Mechanical Ventilator 40 04/05/19 12:00 40 04/05/19 12:00 96 04/05/19 11:22 103 28 40 04/05/19 11:00 23 Mechanical Ventilator 40 04/05/19 11:00 100 23 159/86 100 Mechanical Ventilator 40 04/05/19 10:05 19 Mechanical Ventilator 4.0 40 04/05/19 10:00 108 21 167/103 96 Mechanical Ventilator 40 04/05/19 09:00 19 Mechanical Ventilator 40 04/05/19 09:00 105 27 40 04/05/19 09:00 108 19 165/106 96 Mechanical Ventilator 40 04/05/19 08:00 102 04/05/19 08:00 Mechanical Ventilator 04/05/19 08:00 24 Mechanical Ventilator 40 04/05/19 08:00 99.0 104 24 163/100 98 Mechanical Ventilator 40 04/05/19 08:00 40 04/05/19 07:05 104 27 40 04/05/19 07:00 24 Mechanical Ventilator 45 04/05/19 07:00 108 24 163/101 100 Mechanical Ventilator 45 04/05/19 06:45 23 Mechanical Ventilator 45 04/05/19 06:30 105 26 164/98 99 Mechanical Ventilator 45 04/05/19 06:30 107 23 04/05/19 06:02 23 Mechanical Ventilator 45 04/05/19 06:00 24 Mechanical Ventilator 45 04/05/19 06:00 107 24 160/99 99 Mechanical Ventilator 45 04/05/19 05:30 102 25 161/98 100 Mechanical Ventilator 45 04/05/19 05:10 104 26 45 04/05/19 05:00 21 Mechanical Ventilator 45 04/05/19 05:00 105 21 166/103 100 Mechanical Ventilator 45 04/05/19 04:30 107 26 165/98 100 Mechanical Ventilator 45 04/05/19 04:00 Mechanical Ventilator 04/05/19 04:00 45 04/05/19 04:00 23 Mechanical Ventilator 45 04/05/19 04:00 99.0 104 23 158/92 83 Mechanical Ventilator 45 04/05/19 03:42 91 04/05/19 03:30 96 26 150/93 99 Mechanical Ventilator 45 04/05/19 03:00 98 25 142/93 100 Mechanical Ventilator 45 04/05/19 03:00 25 Mechanical Ventilator 45 04/05/19 02:53 97 26 45 04/05/19 02:37 21 Mechanical Ventilator 45 04/05/19 02:30 100 26 135/94 99 Mechanical Ventilator 45 04/05/19 02:00 25 Mechanical Ventilator 45 04/05/19 02:00 104 25 161/101 100 Mechanical Ventilator 45 04/05/19 01:30 110 28 151/98 100 Mechanical Ventilator 45 04/05/19 01:15 119 35 45 04/05/19 01:00 27 Mechanical Ventilator 45 04/05/19 01:00 115 27 155/104 100 Mechanical Ventilator 45 04/05/19 00:30 121 25 161/105 100 Mechanical Ventilator 45 04/05/19 00:00 45 04/05/19 00:00 24 Mechanical Ventilator 45 04/05/19 00:00 Mechanical Ventilator 04/05/19 00:00 99.1 111 24 168/100 100 Mechanical Ventilator 45 04/04/19 23:30 107 25 156/98 100 Mechanical Ventilator 45 04/04/19 23:25 105 28 45 04/04/19 23:20 23 Mechanical Ventilator 45 04/04/19 23:06 105 04/04/19 23:00 25 Mechanical Ventilator 45 04/04/19 23:00 108 25 153/101 100 Mechanical Ventilator 45 04/04/19 22:30 109 22 155/93 100 Mechanical Ventilator 45 04/04/19 22:00 106 22 144/96 100 Mechanical Ventilator 45 04/04/19 22:00 30 Mechanical Ventilator 45 04/04/19 21:30 108 26 159/107 99 Mechanical Ventilator 45 04/04/19 21:05 102 26 45 I&O Intake and Output 04/04/19 04/05/19 19:00 07:00 Intake Total 977.667 ml 726 ml Output Total 925 ml 835 ml Balance 52.667 ml -109 ml Free Water 300 ml 100 ml IV Total 227.667 ml 376 ml Tube Feeding 450 ml 250 ml Output Urine Total 925 ml 835 ml # Bowel Movements 2 4 Dressing: other Wound: other Drains: other Cardiovascular: RSR Respiratory: decreased breath sounds Abdomen: soft, distended, decreased bowel sounds Extremities: edema, no cyanosis Laboratory Tests Test 04/05/19 03:40 White Blood Count 15.0 K/UL (4.8-10.8) H Red Blood Count 2.52 M/UL (4.20-5.40) L Hemoglobin 7.7 G/DL (12.0-16.0) L Hematocrit 23.2 % (37.0-47.0) L Mean Corpuscular Volume 92 FL (80-99) Mean Corpuscular Hemoglobin 30.7 PG (27.0-31.0) Mean Corpuscular Hemoglobin Concent 33.3 G/DL (32.0-36.0) Red Cell Distribution Width 17.8 % (11.6-14.8) H Platelet Count 210 K/UL (150-450) Mean Platelet Volume 7.2 FL (6.5-10.1) Neutrophils (%) (Auto) % (45.0-75.0) Lymphocytes (%) (Auto) % (20.0-45.0) Monocytes (%) (Auto) % (1.0-10.0) Eosinophils (%) (Auto) % (0.0-3.0) Basophils (%) (Auto) % (0.0-2.0) Differential Total Cells Counted 100 Neutrophils % (Manual) 77 % (45-75) H Lymphocytes % (Manual) 12 % (20-45) L Monocytes % (Manual) 8 % (1-10) Eosinophils % (Manual) 0 % (0-3) Basophils % (Manual) 0 % (0-2) Band Neutrophils 3 % (0-8) Platelet Estimate Adequate Platelet Morphology Normal Polychromasia 1+ Anisocytosis 1+ Sodium Level 142 MMOL/L (136-145) Potassium Level 3.6 MMOL/L (3.5-5.1) Chloride Level 107 MMOL/L (98-107) Carbon Dioxide Level 27 MMOL/L (21-32) Anion Gap 8 mmol/L (5-15) Blood Urea Nitrogen 25 mg/dL (7-18) H Creatinine 2.5 MG/DL (0.55-1.30) H Estimat Glomerular Filtration Rate 25.7 mL/min (>60) Glucose Level 119 MG/DL (74-106) H Calcium Level 9.0 MG/DL (8.5-10.1) Total Bilirubin 0.7 MG/DL (0.2-1.0) Aspartate Amino Transf (AST/SGOT) 61 U/L (15-37) H Alanine Aminotransferase (ALT/SGPT) 208 U/L (12-78) H Alkaline Phosphatase 565 U/L (46-116) H Total Protein 6.6 G/DL (6.4-8.2) Albumin 1.8 G/DL (3.4-5.0) L Globulin 4.8 g/dL Albumin/Globulin Ratio 0.4 (1.0-2.7) L Plan Problems: (1) Abdominal pain Assessment & Plan: 43F presented with abd pain per report 01/04 generalized unable to obtain exam now that she is intubated in distress labs noted ventral incisional hernia reducible abd soft -iv fluids -okay to tube feeds advance to goal as tolerated trend labs -will order imaging when stabilized -HD as per renal -appreciate ICU care -fluid off with HD wean vent wean versed tube feeds to goal will follow with recs thank you (2) Ventral hernia (3) Acute on chronic pancreatitis Assessment & Plan: Evidence of acute on chronic pancreatitis. No pseudocyst. Hepatomegaly with severe steatosis. Mild hiatal hernia. abnormal lft's dehydrated dka renal insufficiency Continue diet as tolerated labs improving iv fluids tailored to uop appreciate endocrine input appreciate financial services director input needs urgent/emergency central venous catheter. Catheter stable unlikely source of leukocytosis see note HD as per renal vent support trend labs will follow with recs Lefty Meraz Apr 05, 2019 21:03
--- NOTE | 2019-04-05 21:38 | Pulmonolgy Critical Care Note ---
Critical Care - Asmt/Plan Assessment/Plan: Pulmonary Critical Care Progress Note HPI Patient is a 43-year-old woman with past history of Diabetes, Hypertension, Chronic Obstructive Pulmonary Disease, admitted with Acute on Chronic Pancreatitis, elevated Liver Functions, Thrombocytopenia. Had c/o abdominal pain , nausea and vomiting, shortness of breath, coughing. She has a history of pancreatitis, noted to have features of Pancreatitis as well as azotemia, elevated liver function tests. She has history of multiple hernia operations, last in May 2018. Developed ARDS complication Pancreatitis. Patient noted to be in Diabetic Ketoacidosis on admission - remains on Insulin gtt, Metabolic acidosis, ARDS/fluid overload, requiring intubation and mechanical ventilation, Acute Renal Failure, s/p Hemodialysis previously Improving PEEP/FIO2, did not tolerate weaning today, s/p Upper GI endoscopy Improving renal function and U/O Allergies: No Known Allergies Past Medical History: Diabetes, Hypertension, Chronic Obstructive Pulmonary Disease, Pancreatitis Physical Exam Vital Signs Noted General Appearance: sedated on the ventilator Head: normocephalic, atraumatic Eyes: bilateral eye normal inspection, bilateral PERRL ENT: moist mm, ETT Neck: no LN, no masses Respiratory: bilateral rhonchi, BS equal bilaterally Cardiovascular: HS1, HS2 normal, mild edema Gastrointestinal: normal bowel sounds, soft, non-distended, tenderness - epigastric, hernia - ventral Musculoskeletal: well perfused, moving all limbs Neurologic: no seizures, no focal signs Impression: Pneumonia vs ARDS Respiratory Failure with high FIO2 and PEEP requirements, remains in positive fluid balance despite diuresis Acute on Chronic Pancreatitis Hypocalcemia sp replacement Hypomagnesemia s/p replacement Reduced Albumin level, receiving NGT feeds Acute Renal Failure on HD PRN, Cr improving Elevated Liver Function Tests Significant previous Alcohol abuse per her partner Thrombocytopenia GI bleed - on Protonix - s/p upper GI endoscopy Diabetic ketoacidoses Severe metabolic acidosis resolved H/o Hypertension H/o Chronic Obstructive Pulmonary Disease, H/o Multiple Previous Hernia Surgeries Plan ACVC, Vt 450,RR 24, adjust PEEP 5, adjust FIO2 - wean for [id number]% - currently 40%, wean ventilator as tolerated CXR noted, persistent infiltrates Dialysis per renal Monitor labs, Repeat ABG PRN HHN Broad spectrum antibiotics/ID PRN Sedation - lighten as tolerated PPX: SCD/Protonix Insulin SQ Labs noted Echo: Preserved LV function EKG: Rate: tachycardiac Rhythm: NSR ST Segments: no acute changes ASA given to the pt in ED: No Chest X-Ray 03/26/2019: no consolidation, no effusion, no pneumothorax, no acute cardiopulmonary disease CXR: 03/27/2019: worsening bilateral infiltrates, low lung volumes, ETT low CT A/P: Lung bases: No mass. No consolidation. ABDOMEN: Liver: Unremarkable. Gallbladder and bile ducts: Unremarkable. Pancreas: Stranding around the pancreas. Multiple calcifications within the pancreas.. Spleen: Unremarkable. Adrenals: Unremarkable. Kidneys and ureters: No hydronephrosis. Stomach and bowel: No bowel obstruction. No bowel wall thickening. Fatty infiltration of the colonic wall. Mild hiatal hernia. PELVIS: Appendix: No evidence of appendicitis. Bladder: Unremarkable. Reproductive: Unremarkable. ABDOMEN and PELVIS: Intraperitoneal space: Unremarkable. Bones/joints: No acute fractures. Soft tissues: Fat containing periumbilical hernia. Vasculature: No abdominal aortic aneurysm. Lymph nodes: No enlarged lymph nodes. Critical Care - Objective Last 24 Hour Vital Signs Date Time Temp Pulse Resp B/P (MAP) Pulse Ox O2 Delivery O2 Flow Rate FiO2 04/05/19 21:30 99 26 40 04/05/19 20:00 40 04/05/19 19:38 23 Mechanical Ventilator 40 04/05/19 19:36 109 04/05/19 19:00 23 Mechanical Ventilator 40 04/05/19 19:00 108 23 177/108 98 Mechanical Ventilator 40 04/05/19 18:47 97.1 04/05/19 18:41 103 26 40 04/05/19 18:09 174/108 04/05/19 18:01 18 Mechanical Ventilator 40 04/05/19 18:00 103 25 188/117 99 Mechanical Ventilator 40 04/05/19 17:56 97.1 04/05/19 17:00 89 18 174/108 100 Mechanical Ventilator 40 04/05/19 17:00 18 Mechanical Ventilator 40 04/05/19 16:56 84 26 40 04/05/19 16:00 92 04/05/19 16:00 97.1 85 26 155/94 100 Mechanical Ventilator 40 04/05/19 16:00 26 Mechanical Ventilator 40 04/05/19 16:00 Mechanical Ventilator 04/05/19 16:00 40 04/05/19 15:00 26 Mechanical Ventilator 40 04/05/19 15:00 90 26 141/96 100 Mechanical Ventilator 40 04/05/19 14:54 90 26 40 04/05/19 14:00 97 25 160/100 100 Mechanical Ventilator 40 04/05/19 13:59 22 Mechanical Ventilator 40 04/05/19 13:00 102 22 155/100 100 Mechanical Ventilator 40 04/05/19 13:00 22 Mechanical Ventilator 40 04/05/19 12:58 102 26 40 04/05/19 12:05 86 18 98 04/05/19 12:04 98 20 98 04/05/19 12:00 99.0 105 24 154/92 99 Mechanical Ventilator 40 04/05/19 12:00 Mechanical Ventilator 04/05/19 12:00 24 Mechanical Ventilator 40 04/05/19 12:00 40 04/05/19 12:00 96 04/05/19 11:22 103 28 40 04/05/19 11:00 23 Mechanical Ventilator 40 04/05/19 11:00 100 23 159/86 100 Mechanical Ventilator 40 04/05/19 10:05 19 Mechanical Ventilator 4.0 40 04/05/19 10:00 108 21 167/103 96 Mechanical Ventilator 40 04/05/19 09:00 19 Mechanical Ventilator 40 04/05/19 09:00 105 27 40 04/05/19 09:00 108 19 165/106 96 Mechanical Ventilator 40 04/05/19 08:00 102 04/05/19 08:00 Mechanical Ventilator 04/05/19 08:00 24 Mechanical Ventilator 40 04/05/19 08:00 99.0 104 24 163/100 98 Mechanical Ventilator 40 04/05/19 08:00 40 04/05/19 07:05 104 27 40 04/05/19 07:00 24 Mechanical Ventilator 45 04/05/19 07:00 108 24 163/101 100 Mechanical Ventilator 45 04/05/19 06:45 23 Mechanical Ventilator 45 04/05/19 06:30 105 26 164/98 99 Mechanical Ventilator 45 04/05/19 06:30 107 23 04/05/19 06:02 23 Mechanical Ventilator 45 04/05/19 06:00 24 Mechanical Ventilator 45 04/05/19 06:00 107 24 160/99 99 Mechanical Ventilator 45 04/05/19 05:30 102 25 161/98 100 Mechanical Ventilator 45 04/05/19 05:10 104 26 45 04/05/19 05:00 21 Mechanical Ventilator 45 04/05/19 05:00 105 21 166/103 100 Mechanical Ventilator 45 04/05/19 04:30 107 26 165/98 100 Mechanical Ventilator 45 04/05/19 04:00 Mechanical Ventilator 04/05/19 04:00 45 04/05/19 04:00 23 Mechanical Ventilator 45 04/05/19 04:00 99.0 104 23 158/92 83 Mechanical Ventilator 45 04/05/19 03:42 91 04/05/19 03:30 96 26 150/93 99 Mechanical Ventilator 45 04/05/19 03:00 98 25 142/93 100 Mechanical Ventilator 45 04/05/19 03:00 25 Mechanical Ventilator 45 04/05/19 02:53 97 26 45 04/05/19 02:37 21 Mechanical Ventilator 45 04/05/19 02:30 100 26 135/94 99 Mechanical Ventilator 45 04/05/19 02:00 25 Mechanical Ventilator 45 04/05/19 02:00 104 25 161/101 100 Mechanical Ventilator 45 04/05/19 01:30 110 28 151/98 100 Mechanical Ventilator 45 04/05/19 01:15 119 35 45 04/05/19 01:00 27 Mechanical Ventilator 45 04/05/19 01:00 115 27 155/104 100 Mechanical Ventilator 45 04/05/19 00:30 121 25 161/105 100 Mechanical Ventilator 45 04/05/19 00:00 45 04/05/19 00:00 24 Mechanical Ventilator 45 04/05/19 00:00 Mechanical Ventilator 04/05/19 00:00 99.1 111 24 168/100 100 Mechanical Ventilator 45 04/04/19 23:30 107 25 156/98 100 Mechanical Ventilator 45 04/04/19 23:25 105 28 45 04/04/19 23:20 23 Mechanical Ventilator 45 04/04/19 23:06 105 04/04/19 23:00 25 Mechanical Ventilator 45 04/04/19 23:00 108 25 153/101 100 Mechanical Ventilator 45 04/04/19 22:30 109 22 155/93 100 Mechanical Ventilator 45 04/04/19 22:00 106 22 144/96 100 Mechanical Ventilator 45 04/04/19 22:00 30 Mechanical Ventilator 45 Micro: Microbiology Date/Time Source Procedure Growth Status 04/03/19 03:40 Urine,Clean Catch Urine Culture - Preliminary Resulted Accucheck: 142 Critical Care - Subjective ROS Limited/Unobtainable: No FI02: 40 Vent Support Breath Rate: 26 Vent Support Mode: AC Vent Tidal Volume: 450 Sputum Amount: Small PEEP: 5.0 PIP: 35 Tube Feeding Amount: 30 I&O: Intake and Output 04/04/19 04/05/19 19:00 07:00 Intake Total 977.667 ml 726 ml Output Total 925 ml 835 ml Balance 52.667 ml -109 ml Free Water 300 ml 100 ml IV Total 227.667 ml 376 ml Tube Feeding 450 ml 250 ml Output Urine Total 925 ml 835 ml # Bowel Movements 2 4 ET-Tube: 7.5 ET Position: 23 Julio Rodrigez MD Apr 05, 2019 21:38
[2019-04-06] VITALS (82 sets, daily range): BP systolic 91–174; BP diastolic 58–124
[2019-04-06 05:47] LABS: BASOPHILS % (AUTO) 0.7 % (0.0-2.0); EOSINOPHILS % (AUTO) 0.9 % (0.0-3.0); HEMATOCRIT 23.9 % (37.0-47.0); HEMOGLOBIN 8.4 G/DL (12.0-16.0); LYMPHOCYTES % (AUTO) 13.2 % (20.0-45.0); MEAN CORPUSCULAR VOLUME 88 FL (80-99); MONOCYTES % (AUTO) 5.4 % (1.0-10.0); NEUTROPHILS % (AUTO) 79.8 % (45.0-75.0); PLATELET COUNT 264 K/UL (150-450); RED BLOOD COUNT 2.72 M/UL (4.20-5.40); RED CELL DISTRIBUTION WIDTH 16.8 % (11.6-14.8); WHITE BLOOD COUNT 13.7 K/UL (4.8-10.8)
[2019-04-06 05:55] LABS: AMYLASE 11 U/L (25-115)
[2019-04-06] MEDS: NovoLOG Insulin Flexpen SUBQ SCH ×4 (06:00→23:29)
[2019-04-06 06:18] LABS: AMMONIA < 10 umol/L (11-32)
[2019-04-06 06:36] LABS: ALANINE AMINOTRANSFERASE 172 U/L (12-78); ALBUMIN 1.9 G/DL (3.4-5.0); ALBUMIN/GLOBULIN RATIO 0.4 (1.0-2.7); ALKALINE PHOSPHATASE 467 U/L (46-116); ANION GAP 9 mmol/L (5-15); ASPARTATE AMINO TRANSFERASE 53 U/L (15-37); BILIRUBIN,TOTAL 0.7 MG/DL (0.2-1.0); BLOOD UREA NITROGEN 23 mg/dL (7-18); CARBON DIOXIDE 27 MMOL/L (21-32); CHLORIDE 109 MMOL/L (98-107); CREATININE 2.2 MG/DL (0.55-1.30); GAMMA GLUTAMYL TRANSPEPTIDASE 676 U/L (5-85); PHOSPHORUS 4.3 MG/DL (2.5-4.9); POTASSIUM 3.4 MMOL/L (3.5-5.1); SODIUM 145 MMOL/L (136-145)
--- NOTE | 2019-04-06 06:52 | General Progress Note ---
Assessment/Plan Problem List: (1) DKA (diabetic ketoacidoses) ICD Codes: E11.10 - Type 2 diabetes mellitus with ketoacidosis without coma SNOMED: 188263379, [id number] Qualifiers: Qualified Codes: E13.10 - Other specified diabetes mellitus with ketoacidosis without coma (2) Diabetes mellitus out of control ICD Codes: E11.65 - Type 2 diabetes mellitus with hyperglycemia SNOMED: 86385037, [id number] (3) Acute on chronic pancreatitis ICD Codes: K85.90 - Acute pancreatitis without necrosis or infection, unspecified; K86.1 - Other chronic pancreatitis SNOMED: 589528775, 113104770 (4) Respiratory failure ICD Codes: J96.90 - Respiratory failure, unspecified, unspecified whether with hypoxia or hypercapnia SNOMED: 966597982 Qualifiers: Qualified Codes: J96.01 - Acute respiratory failure with hypoxia Status: unchanged Assessment/Plan: Levemir 6 units bid - w/ holding parameters continue NISS every 6 hours Subjective ROS Limited/Unobtainable: Yes Allergies: Coded Allergies: No Known Allergies (Unverified , 08/04/18) Subjective events noted stable glucose Item Value Date Time Bedside Blood Glucose 118 mg/dl 04/06/19 0600 Bedside Blood Glucose 164 mg/dl H 04/05/19 2340 Bedside Blood Glucose 142 mg/dl H 04/05/19 1800 Bedside Blood Glucose 150 mg/dl H 04/05/19 1206 Bedside Blood Glucose 149 mg/dl H 04/05/19 1051 Bedside Blood Glucose 121 mg/dl H 04/05/19 0547 Bedside Blood Glucose 162 mg/dl H 04/04/19 2335 Objective Last 24 Hour Vital Signs Date Time Temp Pulse Resp B/P (MAP) Pulse Ox O2 Delivery O2 Flow Rate FiO2 04/06/19 06:41 97 26 40 04/06/19 06:00 103 23 150/96 99 Mechanical Ventilator 40 04/06/19 06:00 26 Mechanical Ventilator 40 04/06/19 05:59 105 26 164/107 100 Mechanical Ventilator 40 04/06/19 05:55 102 24 161/103 99 Mechanical Ventilator 40 04/06/19 05:45 104 27 169/124 100 Mechanical Ventilator 40 04/06/19 05:45 27 Mechanical Ventilator 40 04/06/19 05:35 100 26 164/107 100 Mechanical Ventilator 40 04/06/19 05:30 23 Mechanical Ventilator 40 04/06/19 05:30 100 23 170/113 100 Mechanical Ventilator 40 04/06/19 05:15 98 25 172/107 100 Mechanical Ventilator 40 04/06/19 05:00 26 Mechanical Ventilator 40 04/06/19 05:00 98 26 159/106 99 Mechanical Ventilator 40 04/06/19 04:44 105 26 40 04/06/19 04:30 88 25 143/94 98 Mechanical Ventilator 40 04/06/19 04:00 97.6 87 26 148/96 99 Mechanical Ventilator 40 04/06/19 04:00 26 Mechanical Ventilator 40 04/06/19 04:00 Mechanical Ventilator 04/06/19 04:00 40 04/06/19 03:45 26 Mechanical Ventilator 40 04/06/19 03:30 26 Mechanical Ventilator 40 04/06/19 03:30 95 24 139/87 Mechanical Ventilator 40 04/06/19 03:25 94 26 40 04/06/19 03:14 26 Mechanical Ventilator 40 04/06/19 03:06 90 04/06/19 03:00 87 26 140/90 100 Mechanical Ventilator 40 04/06/19 03:00 26 Mechanical Ventilator 40 04/06/19 02:30 89 24 151/99 99 Mechanical Ventilator 40 04/06/19 02:00 85 26 130/94 100 Mechanical Ventilator 40 04/06/19 02:00 26 Mechanical Ventilator 40 04/06/19 02:00 26 Mechanical Ventilator 40 04/06/19 01:30 89 26 131/93 100 Mechanical Ventilator 40 04/06/19 01:16 90 26 40 04/06/19 01:00 91 26 133/97 100 Mechanical Ventilator 40 04/06/19 01:00 26 Mechanical Ventilator 40 04/06/19 00:30 89 28 140/95 99 Mechanical Ventilator 40 04/06/19 00:15 86 26 133/90 98 Mechanical Ventilator 40 04/06/19 00:00 98.8 86 26 143/95 98 Mechanical Ventilator 40 04/06/19 00:00 26 Mechanical Ventilator 40 04/06/19 00:00 Mechanical Ventilator 04/06/19 00:00 40 04/05/19 23:45 28 Mechanical Ventilator 40 04/05/19 23:45 87 26 143/93 98 Mechanical Ventilator 40 04/05/19 23:26 88 26 40 04/05/19 23:15 28 Mechanical Ventilator 40 04/05/19 23:12 93 04/05/19 23:00 92 26 129/84 98 Mechanical Ventilator 40 04/05/19 23:00 29 Mechanical Ventilator 40 04/05/19 22:45 90 26 129/84 98 Mechanical Ventilator 40 04/05/19 22:45 26 Mechanical Ventilator 40 04/05/19 22:30 90 26 128/84 98 Mechanical Ventilator 40 04/05/19 22:29 26 Mechanical Ventilator 40 04/05/19 22:15 93 25 134/87 98 Mechanical Ventilator 40 04/05/19 22:00 96 26 132/88 98 Mechanical Ventilator 40 04/05/19 22:00 26 Mechanical Ventilator 40 04/05/19 21:45 98 25 131/85 98 Mechanical Ventilator 40 04/05/19 21:30 102 26 136/86 98 Mechanical Ventilator 40 04/05/19 21:30 23 Mechanical Ventilator 40 04/05/19 21:30 99 26 40 04/05/19 21:15 24 Mechanical Ventilator 40 04/05/19 21:15 103 27 137/91 98 Mechanical Ventilator 40 04/05/19 21:00 26 Mechanical Ventilator 40 04/05/19 21:00 107 26 141/87 98 Mechanical Ventilator 40 04/05/19 20:45 112 23 146/84 97 Mechanical Ventilator 40 04/05/19 20:45 24 Mechanical Ventilator 40 04/05/19 20:40 25 Mechanical Ventilator 40 04/05/19 20:30 27 Mechanical Ventilator 40 04/05/19 20:30 114 27 147/91 98 Mechanical Ventilator 40 04/05/19 20:20 27 Mechanical Ventilator 40 04/05/19 20:15 115 24 157/95 98 Mechanical Ventilator 40 04/05/19 20:15 26 Mechanical Ventilator 40 04/05/19 20:10 26 Mechanical Ventilator 40 04/05/19 20:05 25 Mechanical Ventilator 40 04/05/19 20:00 98.3 115 25 160/95 98 Mechanical Ventilator 40 04/05/19 20:00 25 Mechanical Ventilator 40 04/05/19 20:00 40 04/05/19 20:00 Mechanical Ventilator 04/05/19 19:55 27 Mechanical Ventilator 40 04/05/19 19:50 26 Mechanical Ventilator 40 04/05/19 19:45 26 Mechanical Ventilator 40 04/05/19 19:45 109 26 159/99 98 Mechanical Ventilator 40 04/05/19 19:38 23 Mechanical Ventilator 40 04/05/19 19:36 109 04/05/19 19:30 107 25 168/102 98 Mechanical Ventilator 40 04/05/19 19:00 23 Mechanical Ventilator 40 04/05/19 19:00 108 23 177/108 98 Mechanical Ventilator 40 04/05/19 18:47 97.1 04/05/19 18:41 103 26 40 04/05/19 18:09 174/108 04/05/19 18:01 18 Mechanical Ventilator 40 04/05/19 18:00 103 25 188/117 99 Mechanical Ventilator 40 04/05/19 17:56 97.1 04/05/19 17:00 89 18 174/108 100 Mechanical Ventilator 40 04/05/19 17:00 18 Mechanical Ventilator 40 04/05/19 16:56 84 26 40 04/05/19 16:00 92 04/05/19 16:00 97.1 85 26 155/94 100 Mechanical Ventilator 40 04/05/19 16:00 26 Mechanical Ventilator 40 04/05/19 16:00 Mechanical Ventilator 04/05/19 16:00 40 04/05/19 15:00 26 Mechanical Ventilator 40 04/05/19 15:00 90 26 141/96 100 Mechanical Ventilator 40 04/05/19 14:54 90 26 40 04/05/19 14:00 97 25 160/100 100 Mechanical Ventilator 40 04/05/19 13:59 22 Mechanical Ventilator 40 04/05/19 13:00 102 22 155/100 100 Mechanical Ventilator 40 04/05/19 13:00 22 Mechanical Ventilator 40 04/05/19 12:58 102 26 40 04/05/19 12:05 86 18 98 04/05/19 12:04 98 20 98 04/05/19 12:00 99.0 105 24 154/92 99 Mechanical Ventilator 40 04/05/19 12:00 Mechanical Ventilator 04/05/19 12:00 24 Mechanical Ventilator 40 04/05/19 12:00 40 04/05/19 12:00 96 04/05/19 11:22 103 28 40 04/05/19 11:00 23 Mechanical Ventilator 40 04/05/19 11:00 100 23 159/86 100 Mechanical Ventilator 40 04/05/19 10:05 19 Mechanical Ventilator 4.0 40 04/05/19 10:00 108 21 167/103 96 Mechanical Ventilator 40 04/05/19 09:00 19 Mechanical Ventilator 40 04/05/19 09:00 105 27 40 04/05/19 09:00 108 19 165/106 96 Mechanical Ventilator 40 04/05/19 08:00 102 04/05/19 08:00 Mechanical Ventilator 04/05/19 08:00 24 Mechanical Ventilator 40 04/05/19 08:00 99.0 104 24 163/100 98 Mechanical Ventilator 40 04/05/19 08:00 40 04/05/19 07:05 104 27 40 04/05/19 07:00 24 Mechanical Ventilator 45 04/05/19 07:00 108 24 163/101 100 Mechanical Ventilator 45 Intake and Output 04/05/19 04/06/19 18:59 06:59 Intake Total 432 ml 688.2333 ml Output Total 970 ml 1215 ml Balance -538 ml -526.7667 ml Free Water 100 ml IV Total 342 ml 318.2333 ml Tube Feeding 90 ml 270 ml Output Urine Total 970 ml 1215 ml # Bowel Movements 1 Laboratory Tests 04/06/19 03:25: White Blood Count 13.7H, Red Blood Count 2.72L, Hemoglobin 8.4L, Hematocrit 23.9L, Mean Corpuscular Volume 88, Mean Corpuscular Hemoglobin 30.7, Mean Corpuscular Hemoglobin Concent 35.0, Red Cell Distribution Width 16.8H, Platelet Count 264, Mean Platelet Volume 7.0, Neutrophils (%) (Auto) 79.8H, Lymphocytes (%) (Auto) 13.2L, Monocytes (%) (Auto) 5.4, Eosinophils (%) (Auto) 0.9, Basophils (%) (Auto) 0.7, Sodium Level 145, Potassium Level 3.4L, Chloride Level 109H, Carbon Dioxide Level 27, Anion Gap 9, Blood Urea Nitrogen 23H, Creatinine 2.2H, Estimat Glomerular Filtration Rate 29.8, Glucose Level 126H, Uric Acid 4.6, Calcium Level 9.0, Phosphorus Level 4.3, Magnesium Level 2.1, Total Bilirubin 0.7, Gamma Glutamyl Transpeptidase 676H, Aspartate Amino Transf (AST/SGOT) 53H, Alanine Aminotransferase (ALT/SGPT) 172H, Alkaline Phosphatase 467H, Ammonia < 10L, C-Reactive Protein, Quantitative 8.9H, Pro-B-Type Natriuretic Peptide 1785H, Total Protein 6.8, Albumin 1.9L, Globulin 4.9, Albumin/Globulin Ratio 0.4L, Amylase Level 11L, Lipase 23L Height (Feet): 5 Height (Inches): 2.00 Weight (Pounds): 189 General Appearance: lethargic Neck: normal alignment Cardiovascular: normal rate Respiratory/Chest: decreased breath sounds Abdomen: normal bowel sounds Objective Current Medications Medications (Trade) Dose Ordered Sig/Greta Route PRN Reason Start Time Stop Time Status Last Admin Dose Admin Acetaminophen (Tylenol) 650 mg Q4H PRN GT T>100.5 03/30/19 09:45 04/29/19 09:44 04/04/19 08:57 Calcitriol (Rocatrol) 0.5 mcg DAILY GT 04/01/19 09:00 05/01/19 08:59 04/05/19 08:40 Chlorhexidine Gluconate (Hetal-Hex 2%) 1 applic DAILY@2000 TOPIC 03/27/19 20:00 04/26/19 19:59 04/05/19 19:37 Clonidine HCl (Catapres Tab) 0.1 mg Q8H PRN NG For High Blood Pressure 04/05/19 17:30 05/05/19 17:29 Dextrose (Dextrose 50%) 25 ml Q30M PRN IV Hypoglycemia 03/28/19 11:30 04/27/19 11:29 Dextrose (Dextrose 50%) 50 ml Q30M PRN IV Hypoglycemia 03/28/19 11:30 04/27/19 11:29 Epoetin John (Epoetin John(ESRD on dialysis)) 10,000 unit THU-THU-THU SUBQ 03/30/19 21:00 04/29/19 20:59 04/04/19 20:32 Fentanyl Citrate 1000 mcg/Sodium Chloride 100 ml @ 0 mls/hr Q24H IV 04/05/19 17:30 04/12/19 17:29 04/06/19 03:14 Guaifenesin (Robitussin) 200 mg Q4H PRN GT For Cough 03/30/19 09:45 04/26/19 11:14 Hydralazine HCl (Apresoline) 10 mg Q6H PRN IV For High Blood Pressure 04/05/19 17:30 05/05/19 17:29 04/05/19 18:09 Insulin Aspart (NovoLOG) Q6HR SUBQ 04/03/19 12:00 04/27/19 11:59 04/05/19 23:40 Insulin Detemir (Levemir) 6 units BID SUBQ 03/30/19 09:00 04/27/19 11:59 04/04/19 18:40 Lorazepam (Ativan 2mg/ml 1ml) 1 mg Q2H PRN IV For Anxiety 04/05/19 17:30 04/12/19 17:29 Meropenem 500 mg/ Sodium Chloride 55 ml @ 110 mls/hr Q24H IVPB 04/03/19 16:00 04/08/19 15:59 04/05/19 17:03 Midazolam HCl 100 ml @ 0 mls/hr Q24H PRN IV Agitation 03/28/19 00:15 04/10/19 00:14 04/05/19 22:29 Morphine Sulfate (Morphine Sulfate) 2 mg Q2H PRN IVP Severe Pain (Pain Scale 7-10) 04/03/19 20:30 04/10/19 20:29 04/05/19 17:04 Nitroglycerin (Ntg) 0.4 mg Q5MIN X 3 DOSES PRN SL Prn Chest Pain 03/26/19 20:15 04/25/19 20:14 Ondansetron HCl (Zofran) 4 mg Q6H PRN IVP Nausea & Vomiting 03/26/19 20:00 04/25/19 19:59 03/30/19 06:20 Pantoprazole (Protonix) 40 mg EVERY 12 HOURS IVP 03/30/19 09:00 04/29/19 08:59 04/05/19 20:41 Polyethylene Glycol (Miralax) 17 gm DAILYPRN PRN ORAL Constipation 03/26/19 20:00 04/25/19 19:59 Thiamine HCl 100 mg/Sodium Chloride 56 ml @ 112 mls/hr DAILY IVPB 03/29/19 09:00 04/28/19 08:59 04/05/19 08:40 Trimethoprim/ Sulfamethoxazole (Bactrim Single Strength) 1 tab Q24H ORAL 04/06/19 18:00 04/13/19 17:59 Vitamin D (Vitamin D) 2,000 intlu DAILY GT 04/01/19 09:00 04/29/19 09:59 04/05/19 08:39 Joseph Saleem MD Apr 06, 2019 06:52
[2019-04-06] MEDS: Vitamin D 1000 IU Tab GT SCH (08:02)
[2019-04-06] MEDS: Pantoprazole Inj IVP SCH ×2 (08:02→20:24)
[2019-04-06] MEDS: Levemir Flexpen SUBQ SCH ×2 (08:54→17:27)
[2019-04-06] MEDS: Thiamine HCl 100 MG in NS 55 ML IVPB SCH (08:57)
[2019-04-06] MEDS ORDERED: Sodium Chloride for KCL Premix X 4hrs IV SCH (09:00)
[2019-04-06] MEDS: KCl 20mEq 100ml Premix IVPB SCH ×2 (09:56→12:02)
--- NOTE | 2019-04-06 10:12 | General Progress Note ---
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 control repeat LFTS>>>improving fu labs hepatitis panel stool ob positive ppi s/p EGD colonoscopy if needed Subjective ROS Limited/Unobtainable: No Allergies: Coded Allergies: No Known Allergies (Unverified , 08/04/18) Objective Last 24 Hour Vital Signs Date Time Temp Pulse Resp B/P (MAP) Pulse Ox O2 Delivery O2 Flow Rate FiO2 04/06/19 09:15 26 Mechanical Ventilator 40 04/06/19 09:10 26 Mechanical Ventilator 40 04/06/19 09:05 26 Mechanical Ventilator 40 04/06/19 09:00 96 26 131/85 100 Mechanical Ventilator 40 04/06/19 09:00 26 Mechanical Ventilator 40 04/06/19 08:55 26 Mechanical Ventilator 40 04/06/19 08:50 101 26 40 04/06/19 08:50 23 Mechanical Ventilator 40 04/06/19 08:45 26 Mechanical Ventilator 40 04/06/19 08:45 98 26 131/84 99 Mechanical Ventilator 40 04/06/19 08:40 26 Mechanical Ventilator 40 04/06/19 08:35 26 Mechanical Ventilator 40 04/06/19 08:30 99 25 132/86 99 Mechanical Ventilator 40 04/06/19 08:30 26 Mechanical Ventilator 40 04/06/19 08:25 26 Mechanical Ventilator 40 04/06/19 08:15 25 Mechanical Ventilator 40 04/06/19 08:15 112 20 150/97 99 Mechanical Ventilator 40 04/06/19 08:00 22 Mechanical Ventilator 40 04/06/19 08:00 98.6 97 25 135/105 100 Mechanical Ventilator 40 04/06/19 07:30 26 Mechanical Ventilator 40 04/06/19 07:00 26 Mechanical Ventilator 40 04/06/19 07:00 100 26 137/90 99 Mechanical Ventilator 40 04/06/19 06:45 26 Mechanical Ventilator 40 04/06/19 06:41 97 26 40 04/06/19 06:30 102 26 04/06/19 06:30 99 26 139/92 98 Mechanical Ventilator 40 04/06/19 06:30 26 Mechanical Ventilator 40 04/06/19 06:00 103 23 150/96 99 Mechanical Ventilator 40 04/06/19 06:00 26 Mechanical Ventilator 40 04/06/19 05:59 105 26 164/107 100 Mechanical Ventilator 40 04/06/19 05:55 102 24 161/103 99 Mechanical Ventilator 40 04/06/19 05:45 104 27 169/124 100 Mechanical Ventilator 40 04/06/19 05:45 27 Mechanical Ventilator 40 04/06/19 05:35 100 26 164/107 100 Mechanical Ventilator 40 04/06/19 05:30 23 Mechanical Ventilator 40 04/06/19 05:30 100 23 170/113 100 Mechanical Ventilator 40 04/06/19 05:15 98 25 172/107 100 Mechanical Ventilator 40 04/06/19 05:00 26 Mechanical Ventilator 40 04/06/19 05:00 98 26 159/106 99 Mechanical Ventilator 40 04/06/19 04:44 105 26 40 04/06/19 04:30 88 25 143/94 98 Mechanical Ventilator 40 04/06/19 04:00 97.6 87 26 148/96 99 Mechanical Ventilator 40 04/06/19 04:00 26 Mechanical Ventilator 40 04/06/19 04:00 Mechanical Ventilator 04/06/19 04:00 40 04/06/19 03:45 26 Mechanical Ventilator 40 04/06/19 03:30 26 Mechanical Ventilator 40 04/06/19 03:30 95 24 139/87 Mechanical Ventilator 40 04/06/19 03:25 94 26 40 04/06/19 03:14 26 Mechanical Ventilator 40 04/06/19 03:06 90 04/06/19 03:00 87 26 140/90 100 Mechanical Ventilator 40 04/06/19 03:00 26 Mechanical Ventilator 40 04/06/19 02:30 89 24 151/99 99 Mechanical Ventilator 40 04/06/19 02:00 85 26 130/94 100 Mechanical Ventilator 40 04/06/19 02:00 26 Mechanical Ventilator 40 04/06/19 02:00 26 Mechanical Ventilator 40 04/06/19 01:30 89 26 131/93 100 Mechanical Ventilator 40 04/06/19 01:16 90 26 40 04/06/19 01:00 91 26 133/97 100 Mechanical Ventilator 40 04/06/19 01:00 26 Mechanical Ventilator 40 04/06/19 00:30 89 28 140/95 99 Mechanical Ventilator 40 04/06/19 00:15 86 26 133/90 98 Mechanical Ventilator 40 04/06/19 00:00 98.8 86 26 143/95 98 Mechanical Ventilator 40 04/06/19 00:00 26 Mechanical Ventilator 40 04/06/19 00:00 Mechanical Ventilator 04/06/19 00:00 40 04/05/19 23:45 28 Mechanical Ventilator 40 04/05/19 23:45 87 26 143/93 98 Mechanical Ventilator 40 04/05/19 23:26 88 26 40 04/05/19 23:15 28 Mechanical Ventilator 40 04/05/19 23:12 93 04/05/19 23:00 92 26 129/84 98 Mechanical Ventilator 40 04/05/19 23:00 29 Mechanical Ventilator 40 04/05/19 22:45 90 26 129/84 98 Mechanical Ventilator 40 04/05/19 22:45 26 Mechanical Ventilator 40 04/05/19 22:30 90 26 128/84 98 Mechanical Ventilator 40 04/05/19 22:29 26 Mechanical Ventilator 40 04/05/19 22:15 93 25 134/87 98 Mechanical Ventilator 40 04/05/19 22:00 96 26 132/88 98 Mechanical Ventilator 40 04/05/19 22:00 26 Mechanical Ventilator 40 04/05/19 21:45 98 25 131/85 98 Mechanical Ventilator 40 04/05/19 21:30 102 26 136/86 98 Mechanical Ventilator 40 04/05/19 21:30 23 Mechanical Ventilator 40 04/05/19 21:30 99 26 40 04/05/19 21:15 24 Mechanical Ventilator 40 04/05/19 21:15 103 27 137/91 98 Mechanical Ventilator 40 04/05/19 21:00 26 Mechanical Ventilator 40 04/05/19 21:00 107 26 141/87 98 Mechanical Ventilator 40 04/05/19 20:45 112 23 146/84 97 Mechanical Ventilator 40 04/05/19 20:45 24 Mechanical Ventilator 40 04/05/19 20:40 25 Mechanical Ventilator 40 04/05/19 20:30 27 Mechanical Ventilator 40 04/05/19 20:30 114 27 147/91 98 Mechanical Ventilator 40 04/05/19 20:20 27 Mechanical Ventilator 40 04/05/19 20:15 115 24 157/95 98 Mechanical Ventilator 40 04/05/19 20:15 26 Mechanical Ventilator 40 04/05/19 20:10 26 Mechanical Ventilator 40 04/05/19 20:05 25 Mechanical Ventilator 40 04/05/19 20:00 98.3 115 25 160/95 98 Mechanical Ventilator 40 04/05/19 20:00 25 Mechanical Ventilator 40 04/05/19 20:00 40 04/05/19 20:00 Mechanical Ventilator 04/05/19 19:55 27 Mechanical Ventilator 40 04/05/19 19:50 26 Mechanical Ventilator 40 04/05/19 19:45 26 Mechanical Ventilator 40 04/05/19 19:45 109 26 159/99 98 Mechanical Ventilator 40 04/05/19 19:38 23 Mechanical Ventilator 40 04/05/19 19:36 109 04/05/19 19:30 107 25 168/102 98 Mechanical Ventilator 40 04/05/19 19:00 23 Mechanical Ventilator 40 04/05/19 19:00 108 23 177/108 98 Mechanical Ventilator 40 04/05/19 18:47 97.1 04/05/19 18:41 103 26 40 04/05/19 18:09 174/108 04/05/19 18:01 18 Mechanical Ventilator 40 04/05/19 18:00 103 25 188/117 99 Mechanical Ventilator 40 04/05/19 17:56 97.1 04/05/19 17:00 89 18 174/108 100 Mechanical Ventilator 40 04/05/19 17:00 18 Mechanical Ventilator 40 04/05/19 16:56 84 26 40 04/05/19 16:00 92 04/05/19 16:00 97.1 85 26 155/94 100 Mechanical Ventilator 40 04/05/19 16:00 26 Mechanical Ventilator 40 04/05/19 16:00 Mechanical Ventilator 04/05/19 16:00 40 04/05/19 15:00 26 Mechanical Ventilator 40 04/05/19 15:00 90 26 141/96 100 Mechanical Ventilator 40 04/05/19 14:54 90 26 40 04/05/19 14:00 97 25 160/100 100 Mechanical Ventilator 40 04/05/19 13:59 22 Mechanical Ventilator 40 04/05/19 13:00 102 22 155/100 100 Mechanical Ventilator 40 04/05/19 13:00 22 Mechanical Ventilator 40 04/05/19 12:58 102 26 40 04/05/19 12:05 86 18 98 04/05/19 12:04 98 20 98 04/05/19 12:00 99.0 105 24 154/92 99 Mechanical Ventilator 40 04/05/19 12:00 Mechanical Ventilator 04/05/19 12:00 24 Mechanical Ventilator 40 04/05/19 12:00 40 04/05/19 12:00 96 04/05/19 11:22 103 28 40 04/05/19 11:00 23 Mechanical Ventilator 40 04/05/19 11:00 100 23 159/86 100 Mechanical Ventilator 40 Intake and Output 04/05/19 04/06/19 18:59 06:59 Intake Total 432 ml 700.7333 ml Output Total 970 ml 1215 ml Balance -538 ml -514.2667 ml Free Water 100 ml IV Total 342 ml 330.7333 ml Tube Feeding 90 ml 270 ml Output Urine Total 970 ml 1215 ml # Bowel Movements 1 Laboratory Tests 04/06/19 03:25: White Blood Count 13.7H, Red Blood Count 2.72L, Hemoglobin 8.4L, Hematocrit 23.9L, Mean Corpuscular Volume 88, Mean Corpuscular Hemoglobin 30.7, Mean Corpuscular Hemoglobin Concent 35.0, Red Cell Distribution Width 16.8H, Platelet Count 264, Mean Platelet Volume 7.0, Neutrophils (%) (Auto) 79.8H, Lymphocytes (%) (Auto) 13.2L, Monocytes (%) (Auto) 5.4, Eosinophils (%) (Auto) 0.9, Basophils (%) (Auto) 0.7, Sodium Level 145, Potassium Level 3.4L, Chloride Level 109H, Carbon Dioxide Level 27, Anion Gap 9, Blood Urea Nitrogen 23H, Creatinine 2.2H, Estimat Glomerular Filtration Rate 29.8, Glucose Level 126H, Uric Acid 4.6, Calcium Level 9.0, Phosphorus Level 4.3, Magnesium Level 2.1, Total Bilirubin 0.7, Gamma Glutamyl Transpeptidase 676H, Aspartate Amino Transf (AST/SGOT) 53H, Alanine Aminotransferase (ALT/SGPT) 172H, Alkaline Phosphatase 467H, Ammonia < 10L, C-Reactive Protein, Quantitative 8.9H, Pro-B-Type Natriuretic Peptide 1785H, Total Protein 6.8, Albumin 1.9L, Globulin 4.9, Albumin/Globulin Ratio 0.4L, Amylase Level 11L, Lipase 23L Height (Feet): 5 Height (Inches): 2.00 Weight (Pounds): 189 General Appearance: lethargic EENT: normal ENT inspection Neck: supple Cardiovascular: normal rate Abdomen: normal bowel sounds, non tender, soft Extremities: non-tender Vosoghi,Monty MD Apr 06, 2019 10:12
--- NOTE | 2019-04-06 11:10 | Infectious Diseases Prog Note ---
Assessment/Plan Assessment/Plan Assessment: Sepsis PNA -04/03 CXR: Extensive parenchymal consolidation, left lung greater than right, similar to prior. -04/02 BCx NTD sp cx MDR ABC (S bactrim), S. marcences (R ancef; otherwise S), GNR #3 u/a wbc 15-20, n it neg, leuk +2; ucx yeast -04/01 CXR: Possible new or increased right pleural effusion. Otherwise unchanged over 3 days as described, including bilateral pulmonary interstitial and airspace edema versus infiltrates -03/28 sp cx normal resp elodia -11/30 u/a neg; ucx 20-30k uro elodia -Influenza sc neg Fever, improving Leukocytosis, worsened, now improving Probable PNA Acute on chronic pancreatitis -CT abd/p: Evidence of acute on chronic pancreatitis. No pseudocyst. Hepatomegaly with severe steatosis. Mild hiatal hernia. AVINASH, improving -Renal US: Negative ultrasound the kidneys. Shock liver; LFTs improving -Abd US: No acute findings. Questionable mild pericholecystic fluid -acute hep panel neg -HIV ab sc neg Dm2 HTN tobacco and ETOH abuse COPD pancreatitis s/p multiple hernia operations x3 -first two in 2015; Last repair May 2018 with mesh placement at [facility] in [place] obesity Plan: -Continue empiric Meropenem #5 and PO Bactrim #2 for MDR ABC -04/04 SP IV Vancomycin #8 -04/02 SP Zosyn #6 -f/u cx -Monitor CBC/CMP, temperatures -f/u ucx, Bcx x2, sp cx -ETT/ICU care -aspiration precautions Thank you for this consultation. Will continue to follow along with you. Discussed with RN Subjective Allergies: Coded Allergies: No Known Allergies (Unverified , 08/04/18) Subjective afebrile >36hrs wbc improving Bcx NTD Objective Vital Signs Last 24 Hour Vital Signs Date Time Temp Pulse Resp B/P (MAP) Pulse Ox O2 Delivery O2 Flow Rate FiO2 04/06/19 10:36 109 28 40 04/06/19 10:00 40 04/06/19 10:00 120 25 159/111 92 Mechanical Ventilator 40 04/06/19 09:59 40 04/06/19 09:45 96 26 136/88 99 Mechanical Ventilator 40 04/06/19 09:30 97 26 128/87 99 Mechanical Ventilator 40 04/06/19 09:15 97 26 131/83 99 Mechanical Ventilator 40 04/06/19 09:15 26 Mechanical Ventilator 40 04/06/19 09:10 26 Mechanical Ventilator 40 04/06/19 09:05 26 Mechanical Ventilator 40 04/06/19 09:00 96 26 131/85 100 Mechanical Ventilator 40 04/06/19 09:00 26 Mechanical Ventilator 40 04/06/19 08:55 26 Mechanical Ventilator 40 04/06/19 08:50 101 26 40 04/06/19 08:50 23 Mechanical Ventilator 40 04/06/19 08:45 26 Mechanical Ventilator 40 04/06/19 08:45 98 26 131/84 99 Mechanical Ventilator 40 04/06/19 08:40 26 Mechanical Ventilator 40 04/06/19 08:35 26 Mechanical Ventilator 40 04/06/19 08:30 99 25 132/86 99 Mechanical Ventilator 40 04/06/19 08:30 26 Mechanical Ventilator 40 04/06/19 08:25 26 Mechanical Ventilator 40 04/06/19 08:15 25 Mechanical Ventilator 40 04/06/19 08:15 112 20 150/97 99 Mechanical Ventilator 40 04/06/19 08:00 40 04/06/19 08:00 22 Mechanical Ventilator 40 04/06/19 08:00 98.6 97 25 135/105 100 Mechanical Ventilator 40 04/06/19 07:30 26 Mechanical Ventilator 40 04/06/19 07:00 26 Mechanical Ventilator 40 04/06/19 07:00 100 26 137/90 99 Mechanical Ventilator 40 04/06/19 06:45 26 Mechanical Ventilator 40 04/06/19 06:41 97 26 40 04/06/19 06:30 102 26 04/06/19 06:30 99 26 139/92 98 Mechanical Ventilator 40 04/06/19 06:30 26 Mechanical Ventilator 40 04/06/19 06:00 103 23 150/96 99 Mechanical Ventilator 40 04/06/19 06:00 26 Mechanical Ventilator 40 04/06/19 05:59 105 26 164/107 100 Mechanical Ventilator 40 04/06/19 05:55 102 24 161/103 99 Mechanical Ventilator 40 04/06/19 05:45 104 27 169/124 100 Mechanical Ventilator 40 04/06/19 05:45 27 Mechanical Ventilator 40 04/06/19 05:35 100 26 164/107 100 Mechanical Ventilator 40 04/06/19 05:30 23 Mechanical Ventilator 40 04/06/19 05:30 100 23 170/113 100 Mechanical Ventilator 40 04/06/19 05:15 98 25 172/107 100 Mechanical Ventilator 40 04/06/19 05:00 26 Mechanical Ventilator 40 04/06/19 05:00 98 26 159/106 99 Mechanical Ventilator 40 04/06/19 04:44 105 26 40 04/06/19 04:30 88 25 143/94 98 Mechanical Ventilator 40 04/06/19 04:00 97.6 87 26 148/96 99 Mechanical Ventilator 40 04/06/19 04:00 26 Mechanical Ventilator 40 04/06/19 04:00 Mechanical Ventilator 04/06/19 04:00 40 04/06/19 03:45 26 Mechanical Ventilator 40 04/06/19 03:30 26 Mechanical Ventilator 40 04/06/19 03:30 95 24 139/87 Mechanical Ventilator 40 04/06/19 03:25 94 26 40 04/06/19 03:14 26 Mechanical Ventilator 40 04/06/19 03:06 90 04/06/19 03:00 87 26 140/90 100 Mechanical Ventilator 40 04/06/19 03:00 26 Mechanical Ventilator 40 04/06/19 02:30 89 24 151/99 99 Mechanical Ventilator 40 04/06/19 02:00 85 26 130/94 100 Mechanical Ventilator 40 04/06/19 02:00 26 Mechanical Ventilator 40 04/06/19 02:00 26 Mechanical Ventilator 40 04/06/19 01:30 89 26 131/93 100 Mechanical Ventilator 40 04/06/19 01:16 90 26 40 04/06/19 01:00 91 26 133/97 100 Mechanical Ventilator 40 04/06/19 01:00 26 Mechanical Ventilator 40 04/06/19 00:30 89 28 140/95 99 Mechanical Ventilator 40 04/06/19 00:15 86 26 133/90 98 Mechanical Ventilator 40 04/06/19 00:00 98.8 86 26 143/95 98 Mechanical Ventilator 40 04/06/19 00:00 26 Mechanical Ventilator 40 04/06/19 00:00 Mechanical Ventilator 04/06/19 00:00 40 04/05/19 23:45 28 Mechanical Ventilator 40 04/05/19 23:45 87 26 143/93 98 Mechanical Ventilator 40 04/05/19 23:26 88 26 40 04/05/19 23:15 28 Mechanical Ventilator 40 04/05/19 23:12 93 04/05/19 23:00 92 26 129/84 98 Mechanical Ventilator 40 04/05/19 23:00 29 Mechanical Ventilator 40 04/05/19 22:45 90 26 129/84 98 Mechanical Ventilator 40 04/05/19 22:45 26 Mechanical Ventilator 40 04/05/19 22:30 90 26 128/84 98 Mechanical Ventilator 40 04/05/19 22:29 26 Mechanical Ventilator 40 04/05/19 22:15 93 25 134/87 98 Mechanical Ventilator 40 04/05/19 22:00 96 26 132/88 98 Mechanical Ventilator 40 04/05/19 22:00 26 Mechanical Ventilator 40 04/05/19 21:45 98 25 131/85 98 Mechanical Ventilator 40 04/05/19 21:30 102 26 136/86 98 Mechanical Ventilator 40 04/05/19 21:30 23 Mechanical Ventilator 40 04/05/19 21:30 99 26 40 04/05/19 21:15 24 Mechanical Ventilator 40 04/05/19 21:15 103 27 137/91 98 Mechanical Ventilator 40 04/05/19 21:00 26 Mechanical Ventilator 40 04/05/19 21:00 107 26 141/87 98 Mechanical Ventilator 40 04/05/19 20:45 112 23 146/84 97 Mechanical Ventilator 40 04/05/19 20:45 24 Mechanical Ventilator 40 04/05/19 20:40 25 Mechanical Ventilator 40 04/05/19 20:30 27 Mechanical Ventilator 40 04/05/19 20:30 114 27 147/91 98 Mechanical Ventilator 40 04/05/19 20:20 27 Mechanical Ventilator 40 04/05/19 20:15 115 24 157/95 98 Mechanical Ventilator 40 04/05/19 20:15 26 Mechanical Ventilator 40 04/05/19 20:10 26 Mechanical Ventilator 40 04/05/19 20:05 25 Mechanical Ventilator 40 04/05/19 20:00 98.3 115 25 160/95 98 Mechanical Ventilator 40 04/05/19 20:00 25 Mechanical Ventilator 40 04/05/19 20:00 40 04/05/19 20:00 Mechanical Ventilator 04/05/19 19:55 27 Mechanical Ventilator 40 04/05/19 19:50 26 Mechanical Ventilator 40 04/05/19 19:45 26 Mechanical Ventilator 40 04/05/19 19:45 109 26 159/99 98 Mechanical Ventilator 40 04/05/19 19:38 23 Mechanical Ventilator 40 04/05/19 19:36 109 04/05/19 19:30 107 25 168/102 98 Mechanical Ventilator 40 04/05/19 19:00 23 Mechanical Ventilator 40 04/05/19 19:00 108 23 177/108 98 Mechanical Ventilator 40 04/05/19 18:47 97.1 04/05/19 18:41 103 26 40 04/05/19 18:09 174/108 04/05/19 18:01 18 Mechanical Ventilator 40 04/05/19 18:00 103 25 188/117 99 Mechanical Ventilator 40 04/05/19 17:56 97.1 04/05/19 17:00 89 18 174/108 100 Mechanical Ventilator 40 04/05/19 17:00 18 Mechanical Ventilator 40 04/05/19 16:56 84 26 40 04/05/19 16:00 92 04/05/19 16:00 97.1 85 26 155/94 100 Mechanical Ventilator 40 04/05/19 16:00 26 Mechanical Ventilator 40 04/05/19 16:00 Mechanical Ventilator 04/05/19 16:00 40 04/05/19 15:00 26 Mechanical Ventilator 40 04/05/19 15:00 90 26 141/96 100 Mechanical Ventilator 40 04/05/19 14:54 90 26 40 04/05/19 14:00 97 25 160/100 100 Mechanical Ventilator 40 04/05/19 13:59 22 Mechanical Ventilator 40 04/05/19 13:00 102 22 155/100 100 Mechanical Ventilator 40 04/05/19 13:00 22 Mechanical Ventilator 40 04/05/19 12:58 102 26 40 04/05/19 12:05 86 18 98 04/05/19 12:04 98 20 98 04/05/19 12:00 99.0 105 24 154/92 99 Mechanical Ventilator 40 04/05/19 12:00 Mechanical Ventilator 04/05/19 12:00 24 Mechanical Ventilator 40 04/05/19 12:00 40 04/05/19 12:00 96 04/05/19 11:22 103 28 40 04/05/19 11:00 23 Mechanical Ventilator 40 04/05/19 11:00 100 23 159/86 100 Mechanical Ventilator 40 Height (Feet): 5 Height (Inches): 2.00 Weight (Pounds): 189 Objective GENERAL: The patient is a well-developed, well-nourished, obese female, in no apparent distress. HEENT: Eyes, pupils equal and responsive to light and accommodation. Extraocular movements are intact. NECK: Supple. No lymphadenopathy. CHEST: Lungs are clear to auscultation bilaterally without wheezes or rales. CARDIOVASCULAR: Regular rate. S1, S2 normal without murmurs, rubs, or gallops. ABDOMEN: Soft, tender to palpation in the epigastric region, with decreased bowel sounds. There is tenderness to palpation in the epigastric region. There is no rebound or guarding noted. EXTREMITIES: Negative for clubbing, cyanosis, or edema. Laboratory Tests Test 04/06/19 03:25 White Blood Count 13.7 K/UL (4.8-10.8) H Red Blood Count 2.72 M/UL (4.20-5.40) L Hemoglobin 8.4 G/DL (12.0-16.0) L Hematocrit 23.9 % (37.0-47.0) L Mean Corpuscular Volume 88 FL (80-99) Mean Corpuscular Hemoglobin 30.7 PG (27.0-31.0) Mean Corpuscular Hemoglobin Concent 35.0 G/DL (32.0-36.0) Red Cell Distribution Width 16.8 % (11.6-14.8) H Platelet Count 264 K/UL (150-450) Mean Platelet Volume 7.0 FL (6.5-10.1) Neutrophils (%) (Auto) 79.8 % (45.0-75.0) H Lymphocytes (%) (Auto) 13.2 % (20.0-45.0) L Monocytes (%) (Auto) 5.4 % (1.0-10.0) Eosinophils (%) (Auto) 0.9 % (0.0-3.0) Basophils (%) (Auto) 0.7 % (0.0-2.0) Sodium Level 145 MMOL/L (136-145) Potassium Level 3.4 MMOL/L (3.5-5.1) L Chloride Level 109 MMOL/L (98-107) H Carbon Dioxide Level 27 MMOL/L (21-32) Anion Gap 9 mmol/L (5-15) Blood Urea Nitrogen 23 mg/dL (7-18) H Creatinine 2.2 MG/DL (0.55-1.30) H Estimat Glomerular Filtration Rate 29.8 mL/min (>60) Glucose Level 126 MG/DL (74-106) H Uric Acid 4.6 MG/DL (2.6-7.2) Calcium Level 9.0 MG/DL (8.5-10.1) Phosphorus Level 4.3 MG/DL (2.5-4.9) Magnesium Level 2.1 MG/DL (1.8-2.4) Total Bilirubin 0.7 MG/DL (0.2-1.0) Gamma Glutamyl Transpeptidase 676 U/L (5-85) H Aspartate Amino Transf (AST/SGOT) 53 U/L (15-37) H Alanine Aminotransferase (ALT/SGPT) 172 U/L (12-78) H Alkaline Phosphatase 467 U/L (46-116) H Ammonia < 10 umol/L (11-32) L C-Reactive Protein, Quantitative 8.9 mg/dL (0.00-0.90) H Pro-B-Type Natriuretic Peptide 1785 pg/mL (0-125) H Total Protein 6.8 G/DL (6.4-8.2) Albumin 1.9 G/DL (3.4-5.0) L Globulin 4.9 g/dL Albumin/Globulin Ratio 0.4 (1.0-2.7) L Amylase Level 11 U/L (25-115) L Lipase 23 U/L (73-393) L Current Medications Medications (Trade) Dose Ordered Sig/Greta Route PRN Reason Start Time Stop Time Status Last Admin Dose Admin Acetaminophen (Tylenol) 650 mg Q4H PRN GT T>100.5 03/30/19 09:45 04/29/19 09:44 04/04/19 08:57 Chlorhexidine Gluconate (Hetal-Hex 2%) 1 applic DAILY@1999 TOPIC 03/27/19 20:00 04/26/19 19:59 04/05/19 19:37 Clonidine HCl (Catapres Tab) 0.1 mg Q8H PRN NG For High Blood Pressure 04/05/19 17:30 05/05/19 17:29 Dextrose (Dextrose 50%) 25 ml Q30M PRN IV Hypoglycemia 03/28/19 11:30 04/27/19 11:29 Dextrose (Dextrose 50%) 50 ml Q30M PRN IV Hypoglycemia 03/28/19 11:30 04/27/19 11:29 Epoetin John (Epoetin John(ESRD on dialysis)) 10,000 unit THU- SUBQ 03/30/19 21:00 04/29/19 20:59 04/04/19 20:32 Fentanyl Citrate 1000 mcg/Sodium Chloride 100 ml @ 0 mls/hr Q24H IV 04/05/19 17:30 04/12/19 17:29 04/06/19 03:14 Guaifenesin (Robitussin) 200 mg Q4H PRN GT For Cough 03/30/19 09:45 04/26/19 11:14 Hydralazine HCl (Apresoline) 10 mg Q6H PRN IV For High Blood Pressure 04/05/19 17:30 05/05/19 17:29 04/05/19 18:09 Insulin Aspart (NovoLOG) Q6HR SUBQ 04/03/19 12:00 04/27/19 11:59 04/05/19 23:40 Insulin Detemir (Levemir) 6 units BID SUBQ 03/30/19 09:00 04/27/19 11:59 04/06/19 08:54 Lorazepam (Ativan 2mg/ml 1ml) 1 mg Q2H PRN IV For Anxiety 04/05/19 17:30 04/12/19 17:29 Meropenem 500 mg/ Sodium Chloride 55 ml @ 110 mls/hr Q24H IVPB 04/03/19 16:00 04/08/19 15:59 04/05/19 17:03 Midazolam HCl 100 ml @ 0 mls/hr Q24H PRN IV Agitation 03/28/19 00:15 04/10/19 00:14 04/05/19 22:29 Morphine Sulfate (Morphine Sulfate) 2 mg Q2H PRN IVP Severe Pain (Pain Scale 7-10) 04/03/19 20:30 04/10/19 20:29 04/05/19 17:04 Nitroglycerin (Ntg) 0.4 mg Q5MIN X 3 DOSES PRN SL Prn Chest Pain 03/26/19 20:15 04/25/19 20:14 Ondansetron HCl (Zofran) 4 mg Q6H PRN IVP Nausea & Vomiting 03/26/19 20:00 04/25/19 19:59 03/30/19 06:20 Pantoprazole (Protonix) 40 mg EVERY 12 HOURS IVP 03/30/19 09:00 04/29/19 08:59 04/06/19 08:02 Polyethylene Glycol (Miralax) 17 gm DAILYPRN PRN ORAL Constipation 03/26/19 20:00 04/25/19 19:59 Potassium Chloride 100 ml @ 50 mls/hr Q2H IVPB 04/06/19 10:00 04/06/19 13:59 04/06/19 09:56 Thiamine HCl 100 mg/Sodium Chloride 56 ml @ 112 mls/hr DAILY IVPB 03/29/19 09:00 04/28/19 08:59 04/06/19 08:57 Trimethoprim/ Sulfamethoxazole (Bactrim Single Strength) 1 tab Q24H ORAL 04/06/19 18:00 04/13/19 17:59 Lazara Dozier M.D. Apr 06, 2019 11:10
--- NOTE | 2019-04-06 11:34 | Nephrology Progress Note ---
Assessment/Plan Problem List: (1) Acute renal failure (ARF) (2) Respiratory failure (3) DKA (diabetic ketoacidoses) (4) LFT elevation (5) Electrolyte imbalance Assessment: Low Mag and Low Ca (6) Thrombocytopathia Assessment Acute respiratory failure Acute renal failure high LFTs, thrombocytopenia ? HUS ? 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 Ca and Mag IV Vit K Vit D Echo Hyperkinetic wall motion. Left ventricular ejection fraction estimated to be 55-60 %. Moderate left ventricular hypertrophy by 2D. Abd CT: Evidence of acute on chronic pancreatitis. No pseudocyst. Hepatomegaly with severe steatosis. Subjective ROS Limited/Unobtainable: Yes Objective Objective Last 24 Hour Vital Signs Date Time Temp Pulse Resp B/P (MAP) Pulse Ox O2 Delivery O2 Flow Rate FiO2 04/06/19 11:00 110 24 140/93 99 Mechanical Ventilator 40 04/06/19 10:45 115 26 157/103 100 Mechanical Ventilator 40 04/06/19 10:36 109 28 40 04/06/19 10:30 112 26 152/99 100 Mechanical Ventilator 40 04/06/19 10:15 111 25 151/104 99 Mechanical Ventilator 40 04/06/19 10:00 40 04/06/19 10:00 120 25 159/111 92 Mechanical Ventilator 40 04/06/19 09:59 40 04/06/19 09:45 96 26 136/88 99 Mechanical Ventilator 40 04/06/19 09:30 97 26 128/87 99 Mechanical Ventilator 40 04/06/19 09:15 97 26 131/83 99 Mechanical Ventilator 40 04/06/19 09:15 26 Mechanical Ventilator 40 04/06/19 09:10 26 Mechanical Ventilator 40 04/06/19 09:05 26 Mechanical Ventilator 40 04/06/19 09:00 96 26 131/85 100 Mechanical Ventilator 40 04/06/19 09:00 26 Mechanical Ventilator 40 04/06/19 08:55 26 Mechanical Ventilator 40 04/06/19 08:50 101 26 40 04/06/19 08:50 23 Mechanical Ventilator 40 04/06/19 08:45 26 Mechanical Ventilator 40 04/06/19 08:45 98 26 131/84 99 Mechanical Ventilator 40 04/06/19 08:40 26 Mechanical Ventilator 40 04/06/19 08:35 26 Mechanical Ventilator 40 04/06/19 08:30 99 25 132/86 99 Mechanical Ventilator 40 04/06/19 08:30 26 Mechanical Ventilator 40 04/06/19 08:25 26 Mechanical Ventilator 40 04/06/19 08:15 25 Mechanical Ventilator 40 04/06/19 08:15 112 20 150/97 99 Mechanical Ventilator 40 04/06/19 08:00 40 04/06/19 08:00 22 Mechanical Ventilator 40 04/06/19 08:00 101 04/06/19 08:00 98.6 97 25 135/105 100 Mechanical Ventilator 40 04/06/19 08:00 Mechanical Ventilator 04/06/19 07:30 26 Mechanical Ventilator 40 04/06/19 07:00 26 Mechanical Ventilator 40 04/06/19 07:00 100 26 137/90 99 Mechanical Ventilator 40 04/06/19 06:45 26 Mechanical Ventilator 40 04/06/19 06:41 97 26 40 04/06/19 06:30 102 26 04/06/19 06:30 99 26 139/92 98 Mechanical Ventilator 40 04/06/19 06:30 26 Mechanical Ventilator 40 04/06/19 06:00 103 23 150/96 99 Mechanical Ventilator 40 04/06/19 06:00 26 Mechanical Ventilator 40 04/06/19 05:59 105 26 164/107 100 Mechanical Ventilator 40 04/06/19 05:55 102 24 161/103 99 Mechanical Ventilator 40 04/06/19 05:45 104 27 169/124 100 Mechanical Ventilator 40 04/06/19 05:45 27 Mechanical Ventilator 40 04/06/19 05:35 100 26 164/107 100 Mechanical Ventilator 40 04/06/19 05:30 23 Mechanical Ventilator 40 04/06/19 05:30 100 23 170/113 100 Mechanical Ventilator 40 04/06/19 05:15 98 25 172/107 100 Mechanical Ventilator 40 04/06/19 05:00 26 Mechanical Ventilator 40 04/06/19 05:00 98 26 159/106 99 Mechanical Ventilator 40 04/06/19 04:44 105 26 40 04/06/19 04:30 88 25 143/94 98 Mechanical Ventilator 40 04/06/19 04:00 97.6 87 26 148/96 99 Mechanical Ventilator 40 04/06/19 04:00 26 Mechanical Ventilator 40 04/06/19 04:00 Mechanical Ventilator 04/06/19 04:00 40 04/06/19 03:45 26 Mechanical Ventilator 40 04/06/19 03:30 26 Mechanical Ventilator 40 04/06/19 03:30 95 24 139/87 Mechanical Ventilator 40 04/06/19 03:25 94 26 40 04/06/19 03:14 26 Mechanical Ventilator 40 04/06/19 03:06 90 04/06/19 03:00 87 26 140/90 100 Mechanical Ventilator 40 04/06/19 03:00 26 Mechanical Ventilator 40 04/06/19 02:30 89 24 151/99 99 Mechanical Ventilator 40 04/06/19 02:00 85 26 130/94 100 Mechanical Ventilator 40 04/06/19 02:00 26 Mechanical Ventilator 40 04/06/19 02:00 26 Mechanical Ventilator 40 04/06/19 01:30 89 26 131/93 100 Mechanical Ventilator 40 04/06/19 01:16 90 26 40 04/06/19 01:00 91 26 133/97 100 Mechanical Ventilator 40 04/06/19 01:00 26 Mechanical Ventilator 40 04/06/19 00:30 89 28 140/95 99 Mechanical Ventilator 40 04/06/19 00:15 86 26 133/90 98 Mechanical Ventilator 40 04/06/19 00:00 98.8 86 26 143/95 98 Mechanical Ventilator 40 04/06/19 00:00 26 Mechanical Ventilator 40 04/06/19 00:00 Mechanical Ventilator 04/06/19 00:00 40 04/05/19 23:45 28 Mechanical Ventilator 40 04/05/19 23:45 87 26 143/93 98 Mechanical Ventilator 40 04/05/19 23:26 88 26 40 04/05/19 23:15 28 Mechanical Ventilator 40 04/05/19 23:12 93 04/05/19 23:00 92 26 129/84 98 Mechanical Ventilator 40 04/05/19 23:00 29 Mechanical Ventilator 40 04/05/19 22:45 90 26 129/84 98 Mechanical Ventilator 40 04/05/19 22:45 26 Mechanical Ventilator 40 04/05/19 22:30 90 26 128/84 98 Mechanical Ventilator 40 04/05/19 22:29 26 Mechanical Ventilator 40 04/05/19 22:15 93 25 134/87 98 Mechanical Ventilator 40 04/05/19 22:00 96 26 132/88 98 Mechanical Ventilator 40 04/05/19 22:00 26 Mechanical Ventilator 40 04/05/19 21:45 98 25 131/85 98 Mechanical Ventilator 40 04/05/19 21:30 102 26 136/86 98 Mechanical Ventilator 40 04/05/19 21:30 23 Mechanical Ventilator 40 04/05/19 21:30 99 26 40 04/05/19 21:15 24 Mechanical Ventilator 40 04/05/19 21:15 103 27 137/91 98 Mechanical Ventilator 40 04/05/19 21:00 26 Mechanical Ventilator 40 04/05/19 21:00 107 26 141/87 98 Mechanical Ventilator 40 04/05/19 20:45 112 23 146/84 97 Mechanical Ventilator 40 04/05/19 20:45 24 Mechanical Ventilator 40 04/05/19 20:40 25 Mechanical Ventilator 40 04/05/19 20:30 27 Mechanical Ventilator 40 04/05/19 20:30 114 27 147/91 98 Mechanical Ventilator 40 04/05/19 20:20 27 Mechanical Ventilator 40 04/05/19 20:15 115 24 157/95 98 Mechanical Ventilator 40 04/05/19 20:15 26 Mechanical Ventilator 40 04/05/19 20:10 26 Mechanical Ventilator 40 04/05/19 20:05 25 Mechanical Ventilator 40 04/05/19 20:00 98.3 115 25 160/95 98 Mechanical Ventilator 40 04/05/19 20:00 25 Mechanical Ventilator 40 04/05/19 20:00 40 04/05/19 20:00 Mechanical Ventilator 04/05/19 19:55 27 Mechanical Ventilator 40 04/05/19 19:50 26 Mechanical Ventilator 40 04/05/19 19:45 26 Mechanical Ventilator 40 04/05/19 19:45 109 26 159/99 98 Mechanical Ventilator 40 04/05/19 19:38 23 Mechanical Ventilator 40 04/05/19 19:36 109 04/05/19 19:30 107 25 168/102 98 Mechanical Ventilator 40 04/05/19 19:00 23 Mechanical Ventilator 40 04/05/19 19:00 108 23 177/108 98 Mechanical Ventilator 40 04/05/19 18:47 97.1 04/05/19 18:41 103 26 40 04/05/19 18:09 174/108 04/05/19 18:01 18 Mechanical Ventilator 40 04/05/19 18:00 103 25 188/117 99 Mechanical Ventilator 40 04/05/19 17:56 97.1 04/05/19 17:00 89 18 174/108 100 Mechanical Ventilator 40 04/05/19 17:00 18 Mechanical Ventilator 40 04/05/19 16:56 84 26 40 04/05/19 16:00 92 04/05/19 16:00 97.1 85 26 155/94 100 Mechanical Ventilator 40 04/05/19 16:00 26 Mechanical Ventilator 40 04/05/19 16:00 Mechanical Ventilator 04/05/19 16:00 40 04/05/19 15:00 26 Mechanical Ventilator 40 04/05/19 15:00 90 26 141/96 100 Mechanical Ventilator 40 04/05/19 14:54 90 26 40 04/05/19 14:00 97 25 160/100 100 Mechanical Ventilator 40 04/05/19 13:59 22 Mechanical Ventilator 40 04/05/19 13:00 102 22 155/100 100 Mechanical Ventilator 40 04/05/19 13:00 22 Mechanical Ventilator 40 04/05/19 12:58 102 26 40 04/05/19 12:05 86 18 98 04/05/19 12:04 98 20 98 04/05/19 12:00 99.0 105 24 154/92 99 Mechanical Ventilator 40 04/05/19 12:00 Mechanical Ventilator 04/05/19 12:00 24 Mechanical Ventilator 40 04/05/19 12:00 40 04/05/19 12:00 96 Intake and Output 04/05/19 04/06/19 18:59 06:59 Intake Total 432 ml 700.7333 ml Output Total 970 ml 1215 ml Balance -538 ml -514.2667 ml Free Water 100 ml IV Total 342 ml 330.7333 ml Tube Feeding 90 ml 270 ml Output Urine Total 970 ml 1215 ml # Bowel Movements 1 Laboratory Tests 04/06/19 03:25: White Blood Count 13.7H, Red Blood Count 2.72L, Hemoglobin 8.4L, Hematocrit 23.9L, Mean Corpuscular Volume 88, Mean Corpuscular Hemoglobin 30.7, Mean Corpuscular Hemoglobin Concent 35.0, Red Cell Distribution Width 16.8H, Platelet Count 264, Mean Platelet Volume 7.0, Neutrophils (%) (Auto) 79.8H, Lymphocytes (%) (Auto) 13.2L, Monocytes (%) (Auto) 5.4, Eosinophils (%) (Auto) 0.9, Basophils (%) (Auto) 0.7, Sodium Level 145, Potassium Level 3.4L, Chloride Level 109H, Carbon Dioxide Level 27, Anion Gap 9, Blood Urea Nitrogen 23H, Creatinine 2.2H, Estimat Glomerular Filtration Rate 29.8, Glucose Level 126H, Uric Acid 4.6, Calcium Level 9.0, Phosphorus Level 4.3, Magnesium Level 2.1, Total Bilirubin 0.7, Gamma Glutamyl Transpeptidase 676H, Aspartate Amino Transf (AST/SGOT) 53H, Alanine Aminotransferase (ALT/SGPT) 172H, Alkaline Phosphatase 467H, Ammonia < 10L, C-Reactive Protein, Quantitative 8.9H, Pro-B-Type Natriuretic Peptide 1785H, Total Protein 6.8, Albumin 1.9L, Globulin 4.9, Albumin/Globulin Ratio 0.4L, Amylase Level 11L, Lipase 23L Height (Feet): 5 Height (Inches): 2.00 Weight (Pounds): 189 General Appearance: no apparent distress EENT: other - vented Cardiovascular: tachycardia Respiratory/Chest: decreased breath sounds Abdomen: distended Objective no change Amrit Lopez MD Apr 06, 2019 11:34
--- NOTE | 2019-04-06 12:24 | Internal Med Progress Note ---
Subjective Date of Service: Apr 06, 2019 Physician Name Marshal Gilbert Attending Physician Shree Mcintyre MD Current Medications Medications (Trade) Dose Ordered Sig/Greta Route PRN Reason Start Time Stop Time Status Last Admin Dose Admin Acetaminophen (Tylenol) 650 mg Q4H PRN GT T>100.5 03/30/19 09:45 04/29/19 09:44 04/04/19 08:57 Chlorhexidine Gluconate (Hetal-Hex 2%) 1 applic DAILY@2000 TOPIC 03/27/19 20:00 04/26/19 19:59 04/05/19 19:37 Clonidine HCl (Catapres Tab) 0.1 mg Q8H PRN NG For High Blood Pressure 04/05/19 17:30 05/05/19 17:29 Dextrose (Dextrose 50%) 25 ml Q30M PRN IV Hypoglycemia 03/28/19 11:30 04/27/19 11:29 Dextrose (Dextrose 50%) 50 ml Q30M PRN IV Hypoglycemia 03/28/19 11:30 04/27/19 11:29 Epoetin John (Epoetin John(ESRD on dialysis)) 10,000 unit [id number] SUBQ 03/30/19 21:00 04/29/19 20:59 04/04/19 20:32 Fentanyl Citrate 1000 mcg/Sodium Chloride 100 ml @ 0 mls/hr Q24H IV 04/05/19 17:30 04/12/19 17:29 04/06/19 03:14 Guaifenesin (Robitussin) 200 mg Q4H PRN GT For Cough 03/30/19 09:45 04/26/19 11:14 Hydralazine HCl (Apresoline) 10 mg Q6H PRN IV For High Blood Pressure 04/05/19 17:30 05/05/19 17:29 04/05/19 18:09 Insulin Aspart (NovoLOG) Q6HR SUBQ 04/03/19 12:00 04/27/19 11:59 04/06/19 12:03 Insulin Detemir (Levemir) 6 units BID SUBQ 03/30/19 09:00 04/27/19 11:59 04/06/19 08:54 Lorazepam (Ativan 2mg/ml 1ml) 1 mg Q2H PRN IV For Anxiety 04/05/19 17:30 04/12/19 17:29 Meropenem 500 mg/ Sodium Chloride 55 ml @ 110 mls/hr Q24H IVPB 04/03/19 16:00 04/08/19 15:59 04/05/19 17:03 Midazolam HCl 100 ml @ 0 mls/hr Q24H PRN IV Agitation 03/28/19 00:15 04/10/19 00:14 04/05/19 22:29 Morphine Sulfate (Morphine Sulfate) 2 mg Q2H PRN IVP Severe Pain (Pain Scale 7-10) 04/03/19 20:30 04/10/19 20:29 04/05/19 17:04 Nitroglycerin (Ntg) 0.4 mg Q5MIN X 3 DOSES PRN SL Prn Chest Pain 03/26/19 20:15 04/25/19 20:14 Ondansetron HCl (Zofran) 4 mg Q6H PRN IVP Nausea & Vomiting 03/26/19 20:00 04/25/19 19:59 03/30/19 06:20 Pantoprazole (Protonix) 40 mg EVERY 12 HOURS IVP 03/30/19 09:00 04/29/19 08:59 04/06/19 08:02 Polyethylene Glycol (Miralax) 17 gm DAILYPRN PRN ORAL Constipation 03/26/19 20:00 04/25/19 19:59 Potassium Chloride 100 ml @ 50 mls/hr Q2H IVPB 04/06/19 10:00 04/06/19 13:59 04/06/19 12:02 Thiamine HCl 100 mg/Sodium Chloride 56 ml @ 112 mls/hr DAILY IVPB 03/29/19 09:00 04/28/19 08:59 04/06/19 08:57 Trimethoprim/ Sulfamethoxazole (Bactrim Single Strength) 1 tab Q24H ORAL 04/06/19 18:00 04/13/19 17:59 Allergies: Coded Allergies: No Known Allergies (Unverified , 08/04/18) ROS Limited/Unobtainable: Yes Subjective 43 YO F admitted with diabetic ketoacidosis. Now ARDS and respiratory failure. Intubated and sedated. Cover for Int Jorge-Dr Mcintyre. ICU. Objective Last Vital Signs Date Time Temp Pulse Resp B/P (MAP) Pulse Ox O2 Delivery O2 Flow Rate FiO2 04/06/19 12:00 Mechanical Ventilator 04/06/19 11:30 25 40 04/06/19 11:00 110 140/93 99 04/06/19 08:00 98.6 04/05/19 10:05 4.0 Laboratory Tests Test 04/06/19 03:25 White Blood Count 13.7 K/UL (4.8-10.8) H Red Blood Count 2.72 M/UL (4.20-5.40) L Hemoglobin 8.4 G/DL (12.0-16.0) L Hematocrit 23.9 % (37.0-47.0) L Mean Corpuscular Volume 88 FL (80-99) Mean Corpuscular Hemoglobin 30.7 PG (27.0-31.0) Mean Corpuscular Hemoglobin Concent 35.0 G/DL (32.0-36.0) Red Cell Distribution Width 16.8 % (11.6-14.8) H Platelet Count 264 K/UL (150-450) Mean Platelet Volume 7.0 FL (6.5-10.1) Neutrophils (%) (Auto) 79.8 % (45.0-75.0) H Lymphocytes (%) (Auto) 13.2 % (20.0-45.0) L Monocytes (%) (Auto) 5.4 % (1.0-10.0) Eosinophils (%) (Auto) 0.9 % (0.0-3.0) Basophils (%) (Auto) 0.7 % (0.0-2.0) Sodium Level 145 MMOL/L (136-145) Potassium Level 3.4 MMOL/L (3.5-5.1) L Chloride Level 109 MMOL/L (98-107) H Carbon Dioxide Level 27 MMOL/L (21-32) Anion Gap 9 mmol/L (5-15) Blood Urea Nitrogen 23 mg/dL (7-18) H Creatinine 2.2 MG/DL (0.55-1.30) H Estimat Glomerular Filtration Rate 29.8 mL/min (>60) Glucose Level 126 MG/DL (74-106) H Uric Acid 4.6 MG/DL (2.6-7.2) Calcium Level 9.0 MG/DL (8.5-10.1) Phosphorus Level 4.3 MG/DL (2.5-4.9) Magnesium Level 2.1 MG/DL (1.8-2.4) Total Bilirubin 0.7 MG/DL (0.2-1.0) Gamma Glutamyl Transpeptidase 676 U/L (5-85) H Aspartate Amino Transf (AST/SGOT) 53 U/L (15-37) H Alanine Aminotransferase (ALT/SGPT) 172 U/L (12-78) H Alkaline Phosphatase 467 U/L (46-116) H Ammonia < 10 umol/L (11-32) L C-Reactive Protein, Quantitative 8.9 mg/dL (0.00-0.90) H Pro-B-Type Natriuretic Peptide 1785 pg/mL (0-125) H Total Protein 6.8 G/DL (6.4-8.2) Albumin 1.9 G/DL (3.4-5.0) L Globulin 4.9 g/dL Albumin/Globulin Ratio 0.4 (1.0-2.7) L Amylase Level 11 U/L (25-115) L Lipase 23 U/L (73-393) L Intake and Output 04/05/19 04/06/19 18:59 06:59 Intake Total 432 ml 700.7333 ml Output Total 970 ml 1215 ml Balance -538 ml -514.2667 ml Free Water 100 ml IV Total 342 ml 330.7333 ml Tube Feeding 90 ml 270 ml Output Urine Total 970 ml 1215 ml # Bowel Movements 1 Objective General Appearance: WD/WN, moderate distress EENT: PERRL/EOMI, normal ENT inspection Neck: non-tender, normal alignment, normal inspection Cardiovascular: normal peripheral pulses, normal rate, regular rhythm, no gallop/murmur, no JVD Respiratory/Chest: Mech vent; respiratory distress, crackles/rales, rhonchi - bilaterally, expiratory wheezing Abdomen: normal bowel sounds, non tender, soft, no organomegaly, no mass Extremities: normal inspection Edema: trace edema Neurologic: filler shredder helper II-XII grossly normal Skin: normal pigmentation Assessment/Plan Assessment/Plan ASSESSMENT: This is a 43-year-old female with: 1. Abdominal pain. 2. Acute on chronic pancreatitis. 3. Diabetic ketoacidosis. 4. Hyperglycemia. 5. Renal failure. 6. Diabetes type 2. 7. Hypertension. 8. Ventral hernia. 9. ARDs/bilateral infiltrates/Respiratory failure 10. Elevated liver funct tests 11. Thrombocytopenia=improving TREATMENT: 1. Abdominal pain/acute pancreatitis. A Gastroenterology consultation has been obtained with Dr. Monty Jaimes. We will follow recommendations of Gastroenterology. The patient is currently NPO. 2. Diabetic ketoacidosis/hyperglycemia. An Endocrinology consultation= Dr. Joseph Saleem. The patient has been placed on an aspart insulin sliding scale and levemir. We will follow recommendations of Endocrinology. 3. Renal failure. A Nephrology consultation has been obtained with Dr. Lopez. Hemodialysis 04/02/19 4. Hypertension. Continue amlodipine as above. 5. Ventral hernia. 6. Mechanical vent per pulmonary=Balfe. Failed weaning today 7. ABX=meropenem and bactrim Marshal Gilbert MD Apr 06, 2019 12:24
[2019-04-06] MEDS ORDERED: Tubing IV Secondary IV ONE ×2 (16:34→16:41)
[2019-04-06] MEDS ORDERED: NS 275ml ONE (16:34)
[2019-04-06] MEDS: Meropenem 500mg/NS 55ml IVPB SCH ×2 (16:50)
[2019-04-06] MEDS: Bactrim SS Tab ORAL SCH (17:17)
--- NOTE | 2019-04-06 17:31 | Surgery Progress Note ---
Surgery Progress Note Subjective Procedure Performed right femoral central venous catheter insertion Additional Comments Still unable to wean from vent. Patient is awake somewhat responsive can follow simple commands but is lucid given sedation. Sedation holiday was had this morning followed by weaning trial but again patient was unable to tolerate. I spent a fair amount time of the bedside today attempting to wean and change vent settings for patient's comfort she is able to take spontaneous breaths but her tidal volumes are not good enough given her sedation. Will start weaning sedation again to attempt another weaning trial. Discussed with corporate compliance director at bedside. We have tried for a significant time to wean patient was on a daily basis and she still unable to be weaned. Unfortunately looks at this time this continues in this direction will potentially need a tracheostomy. Objective Last 24 Hour Vital Signs Date Time Temp Pulse Resp B/P (MAP) Pulse Ox O2 Delivery O2 Flow Rate FiO2 04/06/19 17:23 115 24 40 04/06/19 16:00 Mechanical Ventilator 04/06/19 16:00 40 04/06/19 15:20 26 Mechanical Ventilator 40 04/06/19 15:11 26 Mechanical Ventilator 40 04/06/19 15:03 98 26 40 04/06/19 15:00 101 26 101/60 98 Mechanical Ventilator 40 04/06/19 14:45 102 26 101/58 98 Mechanical Ventilator 40 04/06/19 14:30 104 26 99/61 98 Mechanical Ventilator 40 04/06/19 14:21 26 Mechanical Ventilator 40 04/06/19 14:20 26 Mechanical Ventilator 40 04/06/19 14:15 106 26 99/61 99 Mechanical Ventilator 40 04/06/19 14:00 108 26 99/60 99 Mechanical Ventilator 40 04/06/19 14:00 26 Mechanical Ventilator 40 04/06/19 13:45 109 26 106/73 98 Mechanical Ventilator 40 04/06/19 13:45 26 Mechanical Ventilator 40 04/06/19 13:30 116 25 119/68 98 Mechanical Ventilator 40 04/06/19 13:30 26 Mechanical Ventilator 40 04/06/19 13:15 127 25 126/76 98 Mechanical Ventilator 40 04/06/19 13:15 26 Mechanical Ventilator 40 04/06/19 13:00 26 Mechanical Ventilator 40 04/06/19 13:00 133 26 174/98 97 Mechanical Ventilator 40 04/06/19 12:45 127 24 140/94 97 Mechanical Ventilator 40 04/06/19 12:45 25 Mechanical Ventilator 40 04/06/19 12:42 120 31 40 04/06/19 12:40 26 Mechanical Ventilator 40 04/06/19 12:30 119 25 124/78 98 Mechanical Ventilator 40 04/06/19 12:15 125 25 147/93 98 Mechanical Ventilator 40 04/06/19 12:10 24 Mechanical Ventilator 40 04/06/19 12:00 90 04/06/19 12:00 Mechanical Ventilator 04/06/19 12:00 99.7 119 26 136/89 99 Mechanical Ventilator 40 04/06/19 12:00 26 Mechanical Ventilator 40 04/06/19 11:45 115 26 139/87 98 Mechanical Ventilator 40 04/06/19 11:40 25 Mechanical Ventilator 40 04/06/19 11:30 117 23 142/90 98 Mechanical Ventilator 40 04/06/19 11:30 25 Mechanical Ventilator 40 04/06/19 11:15 121 18 152/122 97 Mechanical Ventilator 40 04/06/19 11:00 110 24 140/93 99 Mechanical Ventilator 40 04/06/19 11:00 25 Mechanical Ventilator 40 04/06/19 10:45 115 26 157/103 100 Mechanical Ventilator 40 04/06/19 10:45 26 Mechanical Ventilator 40 04/06/19 10:36 109 28 40 04/06/19 10:30 112 26 152/99 100 Mechanical Ventilator 40 04/06/19 10:30 26 Mechanical Ventilator 40 04/06/19 10:15 25 Mechanical Ventilator 40 04/06/19 10:15 111 25 151/104 99 Mechanical Ventilator 40 04/06/19 10:00 40 04/06/19 10:00 120 25 159/111 92 Mechanical Ventilator 40 04/06/19 10:00 25 Mechanical Ventilator 40 04/06/19 09:59 40 04/06/19 09:45 96 26 136/88 99 Mechanical Ventilator 40 04/06/19 09:30 97 26 128/87 99 Mechanical Ventilator 40 04/06/19 09:15 97 26 131/83 99 Mechanical Ventilator 40 04/06/19 09:15 26 Mechanical Ventilator 40 04/06/19 09:10 26 Mechanical Ventilator 40 04/06/19 09:05 26 Mechanical Ventilator 40 04/06/19 09:00 96 26 131/85 100 Mechanical Ventilator 40 04/06/19 09:00 26 Mechanical Ventilator 40 04/06/19 08:55 26 Mechanical Ventilator 40 04/06/19 08:50 101 26 40 04/06/19 08:50 23 Mechanical Ventilator 40 04/06/19 08:45 26 Mechanical Ventilator 40 04/06/19 08:45 98 26 131/84 99 Mechanical Ventilator 40 04/06/19 08:40 26 Mechanical Ventilator 40 04/06/19 08:35 26 Mechanical Ventilator 40 04/06/19 08:30 99 25 132/86 99 Mechanical Ventilator 40 04/06/19 08:30 26 Mechanical Ventilator 40 04/06/19 08:25 26 Mechanical Ventilator 40 04/06/19 08:15 25 Mechanical Ventilator 40 04/06/19 08:15 112 20 150/97 99 Mechanical Ventilator 40 04/06/19 08:00 40 04/06/19 08:00 22 Mechanical Ventilator 40 04/06/19 08:00 101 04/06/19 08:00 98.6 97 25 135/105 100 Mechanical Ventilator 40 04/06/19 08:00 Mechanical Ventilator 04/06/19 07:30 26 Mechanical Ventilator 40 04/06/19 07:00 26 Mechanical Ventilator 40 04/06/19 07:00 100 26 137/90 99 Mechanical Ventilator 40 04/06/19 06:45 26 Mechanical Ventilator 40 04/06/19 06:41 97 26 40 04/06/19 06:30 102 26 04/06/19 06:30 99 26 139/92 98 Mechanical Ventilator 40 04/06/19 06:30 26 Mechanical Ventilator 40 04/06/19 06:00 103 23 150/96 99 Mechanical Ventilator 40 04/06/19 06:00 26 Mechanical Ventilator 40 04/06/19 05:59 105 26 164/107 100 Mechanical Ventilator 40 04/06/19 05:55 102 24 161/103 99 Mechanical Ventilator 40 04/06/19 05:45 104 27 169/124 100 Mechanical Ventilator 40 04/06/19 05:45 27 Mechanical Ventilator 40 04/06/19 05:35 100 26 164/107 100 Mechanical Ventilator 40 04/06/19 05:30 23 Mechanical Ventilator 40 04/06/19 05:30 100 23 170/113 100 Mechanical Ventilator 40 04/06/19 05:15 98 25 172/107 100 Mechanical Ventilator 40 04/06/19 05:00 26 Mechanical Ventilator 40 04/06/19 05:00 98 26 159/106 99 Mechanical Ventilator 40 04/06/19 04:44 105 26 40 04/06/19 04:30 88 25 143/94 98 Mechanical Ventilator 40 04/06/19 04:00 97.6 87 26 148/96 99 Mechanical Ventilator 40 04/06/19 04:00 26 Mechanical Ventilator 40 04/06/19 04:00 Mechanical Ventilator 04/06/19 04:00 40 04/06/19 03:45 26 Mechanical Ventilator 40 04/06/19 03:30 26 Mechanical Ventilator 40 04/06/19 03:30 95 24 139/87 Mechanical Ventilator 40 04/06/19 03:25 94 26 40 04/06/19 03:14 26 Mechanical Ventilator 40 04/06/19 03:06 90 04/06/19 03:00 87 26 140/90 100 Mechanical Ventilator 40 04/06/19 03:00 26 Mechanical Ventilator 40 04/06/19 02:30 89 24 151/99 99 Mechanical Ventilator 40 04/06/19 02:00 85 26 130/94 100 Mechanical Ventilator 40 04/06/19 02:00 26 Mechanical Ventilator 40 04/06/19 02:00 26 Mechanical Ventilator 40 04/06/19 01:30 89 26 131/93 100 Mechanical Ventilator 40 04/06/19 01:16 90 26 40 04/06/19 01:00 91 26 133/97 100 Mechanical Ventilator 40 04/06/19 01:00 26 Mechanical Ventilator 40 04/06/19 00:30 89 28 140/95 99 Mechanical Ventilator 40 04/06/19 00:15 86 26 133/90 98 Mechanical Ventilator 40 04/06/19 00:00 98.8 86 26 143/95 98 Mechanical Ventilator 40 04/06/19 00:00 26 Mechanical Ventilator 40 04/06/19 00:00 Mechanical Ventilator 04/06/19 00:00 40 04/05/19 23:45 28 Mechanical Ventilator 40 04/05/19 23:45 87 26 143/93 98 Mechanical Ventilator 40 04/05/19 23:26 88 26 40 04/05/19 23:15 28 Mechanical Ventilator 40 04/05/19 23:12 93 04/05/19 23:00 92 26 129/84 98 Mechanical Ventilator 40 04/05/19 23:00 29 Mechanical Ventilator 40 04/05/19 22:45 90 26 129/84 98 Mechanical Ventilator 40 04/05/19 22:45 26 Mechanical Ventilator 40 04/05/19 22:30 90 26 128/84 98 Mechanical Ventilator 40 04/05/19 22:29 26 Mechanical Ventilator 40 04/05/19 22:15 93 25 134/87 98 Mechanical Ventilator 40 04/05/19 22:00 96 26 132/88 98 Mechanical Ventilator 40 04/05/19 22:00 26 Mechanical Ventilator 40 04/05/19 21:45 98 25 131/85 98 Mechanical Ventilator 40 04/05/19 21:30 102 26 136/86 98 Mechanical Ventilator 40 04/05/19 21:30 23 Mechanical Ventilator 40 04/05/19 21:30 99 26 40 04/05/19 21:15 24 Mechanical Ventilator 40 04/05/19 21:15 103 27 137/91 98 Mechanical Ventilator 40 04/05/19 21:00 26 Mechanical Ventilator 40 04/05/19 21:00 107 26 141/87 98 Mechanical Ventilator 40 04/05/19 20:45 112 23 146/84 97 Mechanical Ventilator 40 04/05/19 20:45 24 Mechanical Ventilator 40 04/05/19 20:40 25 Mechanical Ventilator 40 04/05/19 20:30 27 Mechanical Ventilator 40 04/05/19 20:30 114 27 147/91 98 Mechanical Ventilator 40 04/05/19 20:20 27 Mechanical Ventilator 40 04/05/19 20:15 115 24 157/95 98 Mechanical Ventilator 40 04/05/19 20:15 26 Mechanical Ventilator 40 04/05/19 20:10 26 Mechanical Ventilator 40 04/05/19 20:05 25 Mechanical Ventilator 40 04/05/19 20:00 98.3 115 25 160/95 98 Mechanical Ventilator 40 04/05/19 20:00 25 Mechanical Ventilator 40 04/05/19 20:00 40 04/05/19 20:00 Mechanical Ventilator 04/05/19 19:55 27 Mechanical Ventilator 40 04/05/19 19:50 26 Mechanical Ventilator 40 04/05/19 19:45 26 Mechanical Ventilator 40 04/05/19 19:45 109 26 159/99 98 Mechanical Ventilator 40 04/05/19 19:38 23 Mechanical Ventilator 40 04/05/19 19:36 109 04/05/19 19:30 107 25 168/102 98 Mechanical Ventilator 40 04/05/19 19:00 23 Mechanical Ventilator 40 04/05/19 19:00 108 23 177/108 98 Mechanical Ventilator 40 04/05/19 18:47 97.1 04/05/19 18:41 103 26 40 04/05/19 18:09 174/108 04/05/19 18:01 18 Mechanical Ventilator 40 04/05/19 18:00 103 25 188/117 99 Mechanical Ventilator 40 04/05/19 17:56 97.1 I&O Intake and Output 04/05/19 04/06/19 19:00 07:00 Intake Total 482.5333 ml 646.9 ml Output Total 1000 ml 1175 ml Balance -517.4667 ml -528.1 ml Free Water 100 ml IV Total 362.5333 ml 306.9 ml Tube Feeding 120 ml 240 ml Output Urine Total 1000 ml 1175 ml # Bowel Movements 1 Dressing: other Wound: other Cardiovascular: RSR, other Respiratory: decreased breath sounds, other Abdomen: soft, present bowel sounds, non-distended Extremities: edema, no tenderness, no cyanosis Laboratory Tests Test 04/06/19 03:25 White Blood Count 13.7 K/UL (4.8-10.8) H Red Blood Count 2.72 M/UL (4.20-5.40) L Hemoglobin 8.4 G/DL (12.0-16.0) L Hematocrit 23.9 % (37.0-47.0) L Mean Corpuscular Volume 88 FL (80-99) Mean Corpuscular Hemoglobin 30.7 PG (27.0-31.0) Mean Corpuscular Hemoglobin Concent 35.0 G/DL (32.0-36.0) Red Cell Distribution Width 16.8 % (11.6-14.8) H Platelet Count 264 K/UL (150-450) Mean Platelet Volume 7.0 FL (6.5-10.1) Neutrophils (%) (Auto) 79.8 % (45.0-75.0) H Lymphocytes (%) (Auto) 13.2 % (20.0-45.0) L Monocytes (%) (Auto) 5.4 % (1.0-10.0) Eosinophils (%) (Auto) 0.9 % (0.0-3.0) Basophils (%) (Auto) 0.7 % (0.0-2.0) Sodium Level 145 MMOL/L (136-145) Potassium Level 3.4 MMOL/L (3.5-5.1) L Chloride Level 109 MMOL/L (98-107) H Carbon Dioxide Level 27 MMOL/L (21-32) Anion Gap 9 mmol/L (5-15) Blood Urea Nitrogen 23 mg/dL (7-18) H Creatinine 2.2 MG/DL (0.55-1.30) H Estimat Glomerular Filtration Rate 29.8 mL/min (>60) Glucose Level 126 MG/DL (74-106) H Uric Acid 4.6 MG/DL (2.6-7.2) Calcium Level 9.0 MG/DL (8.5-10.1) Phosphorus Level 4.3 MG/DL (2.5-4.9) Magnesium Level 2.1 MG/DL (1.8-2.4) Total Bilirubin 0.7 MG/DL (0.2-1.0) Gamma Glutamyl Transpeptidase 676 U/L (5-85) H Aspartate Amino Transf (AST/SGOT) 53 U/L (15-37) H Alanine Aminotransferase (ALT/SGPT) 172 U/L (12-78) H Alkaline Phosphatase 467 U/L (46-116) H Ammonia < 10 umol/L (11-32) L C-Reactive Protein, Quantitative 8.9 mg/dL (0.00-0.90) H Pro-B-Type Natriuretic Peptide 1785 pg/mL (0-125) H Total Protein 6.8 G/DL (6.4-8.2) Albumin 1.9 G/DL (3.4-5.0) L Globulin 4.9 g/dL Albumin/Globulin Ratio 0.4 (1.0-2.7) L Amylase Level 11 U/L (25-115) L Lipase 23 U/L (73-393) L Plan Problems: (1) Abdominal pain Assessment & Plan: 43F presented with abd pain per report 01/04 generalized unable to obtain exam now that she is intubated in distress labs noted ventral incisional hernia reducible abd soft -iv fluids -okay to tube feeds advance to goal as tolerated trend labs -will order imaging when stabilized -HD as per renal -appreciate ICU care -fluid off with HD wean vent wean versed tube feeds to goal will follow with recs thank you Sedation holiday was had this morning followed by weaning trial but again patient was unable to tolerate. I spent a fair amount time of the bedside today attempting to wean and change vent settings for patient's comfort she is able to take spontaneous breaths but her tidal volumes are not good enough given her sedation. Will start weaning sedation again to attempt another weaning trial. Discussed with corporate compliance director at bedside. We have tried for a significant time to wean patient was on a daily basis and she still unable to be weaned. Unfortunately looks at this time this continues in this direction will potentially need a tracheostomy. (2) Ventral hernia (3) Acute on chronic pancreatitis Assessment & Plan: Evidence of acute on chronic pancreatitis. No pseudocyst. Hepatomegaly with severe steatosis. Mild hiatal hernia. abnormal lft's dehydrated dka renal insufficiency Continue diet as tolerated labs improving iv fluids tailored to uop appreciate endocrine input appreciate cloud automation tester input needs urgent/emergency central venous catheter. Catheter stable unlikely source of leukocytosis see note HD as per renal vent support trend labs will follow with Lefty Montgomery Apr 06, 2019 17:31
--- NOTE | 2019-04-06 18:15 | Pulmonolgy Critical Care Note ---
Critical Care - Asmt/Plan Assessment/Plan: Pulmonary Critical Care Progress Note HPI Patient is a 43-year-old woman with past history of Diabetes, Hypertension, Chronic Obstructive Pulmonary Disease, admitted with Acute on Chronic Pancreatitis, elevated Liver Functions, Thrombocytopenia. Had c/o abdominal pain , nausea and vomiting, shortness of breath, coughing. She has a history of pancreatitis, noted to have features of Pancreatitis as well as azotemia, elevated liver function tests. She has history of multiple hernia operations, last in May 2018. Developed ARDS complication Pancreatitis. Patient noted to be in Diabetic Ketoacidosis on admission - remains on Insulin gtt, Metabolic acidosis, ARDS/fluid overload, requiring intubation and mechanical ventilation, Acute Renal Failure, s/p Hemodialysis previously Improving PEEP/FIO2, did not tolerate weaning today, s/p Upper GI endoscopy Improving renal function and U/O Allergies: No Known Allergies Past Medical History: Diabetes, Hypertension, Chronic Obstructive Pulmonary Disease, Pancreatitis Physical Exam Vital Signs Noted General Appearance: sedated on the ventilator Head: normocephalic, atraumatic Eyes: bilateral eye normal inspection, bilateral PERRL ENT: moist mm, ETT Neck: no LN, no masses Respiratory: bilateral rhonchi, BS equal bilaterally Cardiovascular: HS1, HS2 normal, mild edema Gastrointestinal: normal bowel sounds, soft, non-distended, tenderness - epigastric, hernia - ventral Musculoskeletal: well perfused, moving all limbs Neurologic: no seizures, no focal signs Impression: Pneumonia vs ARDS Respiratory Failure with high FIO2 and PEEP requirements, remains in positive fluid balance despite diuresis Acute on Chronic Pancreatitis Hypocalcemia sp replacement Hypomagnesemia s/p replacement Reduced Albumin level, receiving NGT feeds Acute Renal Failure on HD PRN, Cr improving Elevated Liver Function Tests Significant previous Alcohol abuse per her partner Thrombocytopenia GI bleed - on Protonix - s/p upper GI endoscopy Diabetic ketoacidoses Severe metabolic acidosis resolved H/o Hypertension H/o Chronic Obstructive Pulmonary Disease, H/o Multiple Previous Hernia Surgeries Plan ACVC, Vt 450,RR 24, adjust PEEP 5, adjust FIO2 - wean for [id number]% - currently 40%, wean ventilator as tolerated CXR noted, persistent infiltrates Dialysis per renal Monitor labs, Repeat ABG PRN HHN Broad spectrum antibiotics/ID PRN Sedation - lighten as tolerated PPX: SCD/Protonix Insulin SQ Labs noted Echo: Preserved LV function EKG: Rate: tachycardiac Rhythm: NSR ST Segments: no acute changes ASA given to the pt in ED: No Chest X-Ray 03/26/2019: no consolidation, no effusion, no pneumothorax, no acute cardiopulmonary disease CXR: 03/27/2019: worsening bilateral infiltrates, low lung volumes, ETT low CT A/P: Lung bases: No mass. No consolidation. ABDOMEN: Liver: Unremarkable. Gallbladder and bile ducts: Unremarkable. Pancreas: Stranding around the pancreas. Multiple calcifications within the pancreas.. Spleen: Unremarkable. Adrenals: Unremarkable. Kidneys and ureters: No hydronephrosis. Stomach and bowel: No bowel obstruction. No bowel wall thickening. Fatty infiltration of the colonic wall. Mild hiatal hernia. PELVIS: Appendix: No evidence of appendicitis. Bladder: Unremarkable. Reproductive: Unremarkable. ABDOMEN and PELVIS: Intraperitoneal space: Unremarkable. Bones/joints: No acute fractures. Soft tissues: Fat containing periumbilical hernia. Vasculature: No abdominal aortic aneurysm. Lymph nodes: No enlarged lymph nodes. Critical Care - Objective Last 24 Hour Vital Signs Date Time Temp Pulse Resp B/P (MAP) Pulse Ox O2 Delivery O2 Flow Rate FiO2 04/06/19 18:00 117 26 112/67 96 Mechanical Ventilator 40 04/06/19 17:45 127 24 132/76 96 Mechanical Ventilator 40 04/06/19 17:30 132 27 132/83 93 Mechanical Ventilator 40 04/06/19 17:23 115 24 40 04/06/19 17:15 115 24 121/78 98 Mechanical Ventilator 40 04/06/19 17:00 26 Mechanical Ventilator 40 04/06/19 17:00 115 22 117/72 97 Mechanical Ventilator 40 04/06/19 16:45 114 25 110/70 98 Mechanical Ventilator 40 04/06/19 16:30 116 24 119/76 98 Mechanical Ventilator 40 04/06/19 16:15 107 26 121/84 99 Mechanical Ventilator 40 04/06/19 16:15 26 Mechanical Ventilator 40 04/06/19 16:00 Mechanical Ventilator 04/06/19 16:00 98.5 99 26 108/65 98 Mechanical Ventilator 40 04/06/19 16:00 40 04/06/19 16:00 26 Mechanical Ventilator 40 04/06/19 15:45 101 26 109/63 99 Mechanical Ventilator 40 04/06/19 15:30 100 26 102/60 98 Mechanical Ventilator 40 04/06/19 15:20 26 Mechanical Ventilator 40 04/06/19 15:15 100 26 102/60 98 Mechanical Ventilator 40 04/06/19 15:11 26 Mechanical Ventilator 40 04/06/19 15:03 98 26 40 04/06/19 15:00 101 26 101/60 98 Mechanical Ventilator 40 04/06/19 14:45 102 26 101/58 98 Mechanical Ventilator 40 04/06/19 14:30 104 26 99/61 98 Mechanical Ventilator 40 04/06/19 14:21 26 Mechanical Ventilator 40 04/06/19 14:20 26 Mechanical Ventilator 40 04/06/19 14:15 106 26 99/61 99 Mechanical Ventilator 40 04/06/19 14:00 108 26 99/60 99 Mechanical Ventilator 40 04/06/19 14:00 26 Mechanical Ventilator 40 04/06/19 13:45 109 26 106/73 98 Mechanical Ventilator 40 04/06/19 13:45 26 Mechanical Ventilator 40 04/06/19 13:30 116 25 119/68 98 Mechanical Ventilator 40 04/06/19 13:30 26 Mechanical Ventilator 40 04/06/19 13:15 127 25 126/76 98 Mechanical Ventilator 40 04/06/19 13:15 26 Mechanical Ventilator 40 04/06/19 13:00 26 Mechanical Ventilator 40 04/06/19 13:00 133 26 174/98 97 Mechanical Ventilator 40 04/06/19 12:45 127 24 140/94 97 Mechanical Ventilator 40 04/06/19 12:45 25 Mechanical Ventilator 40 04/06/19 12:42 120 31 40 04/06/19 12:40 26 Mechanical Ventilator 40 04/06/19 12:30 119 25 124/78 98 Mechanical Ventilator 40 04/06/19 12:15 125 25 147/93 98 Mechanical Ventilator 40 04/06/19 12:10 24 Mechanical Ventilator 40 04/06/19 12:00 90 04/06/19 12:00 Mechanical Ventilator 04/06/19 12:00 99.7 119 26 136/89 99 Mechanical Ventilator 40 04/06/19 12:00 26 Mechanical Ventilator 40 04/06/19 11:45 115 26 139/87 98 Mechanical Ventilator 40 04/06/19 11:40 25 Mechanical Ventilator 40 04/06/19 11:30 117 23 142/90 98 Mechanical Ventilator 40 04/06/19 11:30 25 Mechanical Ventilator 40 04/06/19 11:15 121 26 152/122 97 Mechanical Ventilator 40 04/06/19 11:00 110 24 140/93 99 Mechanical Ventilator 40 04/06/19 11:00 25 Mechanical Ventilator 40 04/06/19 10:45 115 26 157/103 100 Mechanical Ventilator 40 04/06/19 10:45 26 Mechanical Ventilator 40 04/06/19 10:36 109 28 40 04/06/19 10:30 112 26 152/99 100 Mechanical Ventilator 40 04/06/19 10:30 26 Mechanical Ventilator 40 04/06/19 10:15 25 Mechanical Ventilator 40 04/06/19 10:15 111 25 151/104 99 Mechanical Ventilator 40 04/06/19 10:00 40 04/06/19 10:00 120 25 159/111 92 Mechanical Ventilator 40 04/06/19 10:00 25 Mechanical Ventilator 40 04/06/19 09:59 40 04/06/19 09:45 96 26 136/88 99 Mechanical Ventilator 40 04/06/19 09:30 97 26 128/87 99 Mechanical Ventilator 40 04/06/19 09:15 97 26 131/83 99 Mechanical Ventilator 40 04/06/19 09:15 26 Mechanical Ventilator 40 04/06/19 09:10 26 Mechanical Ventilator 40 04/06/19 09:05 26 Mechanical Ventilator 40 04/06/19 09:00 96 26 131/85 100 Mechanical Ventilator 40 04/06/19 09:00 26 Mechanical Ventilator 40 04/06/19 08:55 26 Mechanical Ventilator 40 04/06/19 08:50 101 26 40 04/06/19 08:50 23 Mechanical Ventilator 40 04/06/19 08:45 26 Mechanical Ventilator 40 04/06/19 08:45 98 26 131/84 99 Mechanical Ventilator 40 04/06/19 08:40 26 Mechanical Ventilator 40 04/06/19 08:35 26 Mechanical Ventilator 40 04/06/19 08:30 99 25 132/86 99 Mechanical Ventilator 40 04/06/19 08:30 26 Mechanical Ventilator 40 04/06/19 08:25 26 Mechanical Ventilator 40 04/06/19 08:15 25 Mechanical Ventilator 40 04/06/19 08:15 112 20 150/97 99 Mechanical Ventilator 40 04/06/19 08:00 40 04/06/19 08:00 22 Mechanical Ventilator 40 04/06/19 08:00 101 04/06/19 08:00 98.6 97 25 135/105 100 Mechanical Ventilator 40 04/06/19 08:00 Mechanical Ventilator 04/06/19 07:30 26 Mechanical Ventilator 40 04/06/19 07:00 26 Mechanical Ventilator 40 04/06/19 07:00 100 26 137/90 99 Mechanical Ventilator 40 04/06/19 06:45 26 Mechanical Ventilator 40 04/06/19 06:41 97 26 40 04/06/19 06:30 102 26 04/06/19 06:30 99 26 139/92 98 Mechanical Ventilator 40 04/06/19 06:30 26 Mechanical Ventilator 40 04/06/19 06:00 103 23 150/96 99 Mechanical Ventilator 40 04/06/19 06:00 26 Mechanical Ventilator 40 04/06/19 05:59 105 26 164/107 100 Mechanical Ventilator 40 04/06/19 05:55 102 24 161/103 99 Mechanical Ventilator 40 04/06/19 05:45 104 27 169/124 100 Mechanical Ventilator 40 04/06/19 05:45 27 Mechanical Ventilator 40 04/06/19 05:35 100 26 164/107 100 Mechanical Ventilator 40 04/06/19 05:30 23 Mechanical Ventilator 40 04/06/19 05:30 100 23 170/113 100 Mechanical Ventilator 40 04/06/19 05:15 98 25 172/107 100 Mechanical Ventilator 40 04/06/19 05:00 26 Mechanical Ventilator 40 04/06/19 05:00 98 26 159/106 99 Mechanical Ventilator 40 04/06/19 04:44 105 26 40 04/06/19 04:30 88 25 143/94 98 Mechanical Ventilator 40 04/06/19 04:00 97.6 87 26 148/96 99 Mechanical Ventilator 40 04/06/19 04:00 26 Mechanical Ventilator 40 04/06/19 04:00 Mechanical Ventilator 04/06/19 04:00 40 04/06/19 03:45 26 Mechanical Ventilator 40 04/06/19 03:30 26 Mechanical Ventilator 40 04/06/19 03:30 95 24 139/87 Mechanical Ventilator 40 04/06/19 03:25 94 26 40 04/06/19 03:14 26 Mechanical Ventilator 40 04/06/19 03:06 90 04/06/19 03:00 87 26 140/90 100 Mechanical Ventilator 40 04/06/19 03:00 26 Mechanical Ventilator 40 04/06/19 02:30 89 24 151/99 99 Mechanical Ventilator 40 04/06/19 02:00 85 26 130/94 100 Mechanical Ventilator 40 04/06/19 02:00 26 Mechanical Ventilator 40 04/06/19 02:00 26 Mechanical Ventilator 40 04/06/19 01:30 89 26 131/93 100 Mechanical Ventilator 40 04/06/19 01:16 90 26 40 04/06/19 01:00 91 26 133/97 100 Mechanical Ventilator 40 04/06/19 01:00 26 Mechanical Ventilator 40 04/06/19 00:30 89 28 140/95 99 Mechanical Ventilator 40 04/06/19 00:15 86 26 133/90 98 Mechanical Ventilator 40 04/06/19 00:00 98.8 86 26 143/95 98 Mechanical Ventilator 40 04/06/19 00:00 26 Mechanical Ventilator 40 04/06/19 00:00 Mechanical Ventilator 04/06/19 00:00 40 04/05/19 23:45 28 Mechanical Ventilator 40 04/05/19 23:45 87 26 143/93 98 Mechanical Ventilator 40 04/05/19 23:26 88 26 40 04/05/19 23:15 28 Mechanical Ventilator 40 04/05/19 23:12 93 04/05/19 23:00 92 26 129/84 98 Mechanical Ventilator 40 04/05/19 23:00 29 Mechanical Ventilator 40 04/05/19 22:45 90 26 129/84 98 Mechanical Ventilator 40 04/05/19 22:45 26 Mechanical Ventilator 40 04/05/19 22:30 90 26 128/84 98 Mechanical Ventilator 40 04/05/19 22:29 26 Mechanical Ventilator 40 04/05/19 22:15 93 25 134/87 98 Mechanical Ventilator 40 04/05/19 22:00 96 26 132/88 98 Mechanical Ventilator 40 04/05/19 22:00 26 Mechanical Ventilator 40 04/05/19 21:45 98 25 131/85 98 Mechanical Ventilator 40 04/05/19 21:30 102 26 136/86 98 Mechanical Ventilator 40 04/05/19 21:30 23 Mechanical Ventilator 40 04/05/19 21:30 99 26 40 04/05/19 21:15 24 Mechanical Ventilator 40 04/05/19 21:15 103 27 137/91 98 Mechanical Ventilator 40 04/05/19 21:00 26 Mechanical Ventilator 40 04/05/19 21:00 107 26 141/87 98 Mechanical Ventilator 40 04/05/19 20:45 112 23 146/84 97 Mechanical Ventilator 40 04/05/19 20:45 24 Mechanical Ventilator 40 04/05/19 20:40 25 Mechanical Ventilator 40 04/05/19 20:30 27 Mechanical Ventilator 40 04/05/19 20:30 114 27 147/91 98 Mechanical Ventilator 40 04/05/19 20:20 27 Mechanical Ventilator 40 04/05/19 20:15 115 24 157/95 98 Mechanical Ventilator 40 04/05/19 20:15 26 Mechanical Ventilator 40 04/05/19 20:10 26 Mechanical Ventilator 40 04/05/19 20:05 25 Mechanical Ventilator 40 04/05/19 20:00 98.3 115 25 160/95 98 Mechanical Ventilator 40 04/05/19 20:00 25 Mechanical Ventilator 40 04/05/19 20:00 40 04/05/19 20:00 Mechanical Ventilator 04/05/19 19:55 27 Mechanical Ventilator 40 04/05/19 19:50 26 Mechanical Ventilator 40 04/05/19 19:45 26 Mechanical Ventilator 40 04/05/19 19:45 109 26 159/99 98 Mechanical Ventilator 40 04/05/19 19:38 23 Mechanical Ventilator 40 04/05/19 19:36 109 04/05/19 19:30 107 25 168/102 98 Mechanical Ventilator 40 04/05/19 19:00 23 Mechanical Ventilator 40 04/05/19 19:00 108 23 177/108 98 Mechanical Ventilator 40 04/05/19 18:47 97.1 04/05/19 18:41 103 26 40 Accucheck: 140 Critical Care - Subjective ROS Limited/Unobtainable: No FI02: 40 Vent Support Breath Rate: 26 Vent Support Mode: AC Vent Tidal Volume: 450 Sputum Amount: Small PEEP: 5.0 PIP: 21 Tube Feeding Amount: 45 I&O: Intake and Output 04/05/19 04/06/19 19:00 07:00 Intake Total 482.5333 ml 646.9 ml Output Total 1000 ml 1175 ml Balance -517.4667 ml -528.1 ml Free Water 100 ml IV Total 362.5333 ml 306.9 ml Tube Feeding 120 ml 240 ml Output Urine Total 1000 ml 1175 ml # Bowel Movements 1 ET-Tube: 7.5 ET Position: 23 Julio Rodrigez MD Apr 06, 2019 18:15
[2019-04-06] MEDS: Acetaminophen 650mg/20.3ml GT PRN (18:51)
[2019-04-06] MEDS: Epoetin Alfa-EPBX(ESRD on dialysis)10,000 unit/ml vial SUBQ SCH (20:24)
[2019-04-06] MEDS: Dyna-Hex 2% Top Sol 2oz TOPIC SCH (20:24)
[2019-04-07] VITALS (61 sets, daily range): BP systolic 15–184; BP diastolic 80–123
[2019-04-07] MEDS: LORazepam Inj 2mg/ml 1ml IV PRN ×4 (04:47→21:06)
[2019-04-07] MEDS: NovoLOG Insulin Flexpen SUBQ SCH ×4 (05:35→23:35)
[2019-04-07 05:51] LABS: ALANINE AMINOTRANSFERASE 134 U/L (12-78); ALBUMIN/GLOBULIN RATIO 0.4 (1.0-2.7); ALKALINE PHOSPHATASE 386 U/L (46-116); ANION GAP 6 mmol/L (5-15); ASPARTATE AMINO TRANSFERASE 41 U/L (15-37); BILIRUBIN,TOTAL 0.6 MG/DL (0.2-1.0); BLOOD UREA NITROGEN 21 mg/dL (7-18); CALCIUM 9.4 MG/DL (8.5-10.1); CARBON DIOXIDE 31 MMOL/L (21-32); CHLORIDE 111 MMOL/L (98-107); CREATININE 2.5 MG/DL (0.55-1.30); GAMMA GLUTAMYL TRANSPEPTIDASE 526 U/L (5-85); PHOSPHORUS 5.6 MG/DL (2.5-4.9); POTASSIUM 3.8 MMOL/L (3.5-5.1); SODIUM 148 MMOL/L (136-145)
[2019-04-07 05:52] LABS: HEMATOCRIT 23.9 % (37.0-47.0); HEMOGLOBIN 7.6 G/DL (12.0-16.0); MEAN CORPUSCULAR VOLUME 96 FL (80-99); PLATELET COUNT 340 K/UL (150-450); RED CELL DISTRIBUTION WIDTH 19.6 % (11.6-14.8); WHITE BLOOD COUNT 11.1 K/UL (4.8-10.8)
[2019-04-07] MEDS: Morphine Sulfate 2mg/ml Inj(IV/IM USE ONLY) IVP PRN ×3 (06:08→21:06)
[2019-04-07] MEDS: Levemir Flexpen SUBQ SCH ×2 (08:48→17:30)
[2019-04-07] MEDS: Pantoprazole Inj IVP SCH ×2 (08:48→20:02)
[2019-04-07] MEDS: Thiamine HCl 100 MG in NS 55 ML IVPB SCH (09:41)
--- NOTE | 2019-04-07 10:37 | General Progress Note ---
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 DM control repeat LFTS>>>improving fu labs hepatitis panel stool ob positive x2 ppi s/p EGD colonoscopy if needed Subjective ROS Limited/Unobtainable: No Allergies: Coded Allergies: No Known Allergies (Unverified , 08/04/18) Objective Last 24 Hour Vital Signs Date Time Temp Pulse Resp B/P (MAP) Pulse Ox O2 Delivery O2 Flow Rate FiO2 04/07/19 10:00 148 21 168/114 95 Mechanical Ventilator 40 04/07/19 10:00 40 04/07/19 09:30 129 25 149/94 97 Mechanical Ventilator 40 04/07/19 09:07 144 31 40 04/07/19 09:00 129 23 142/93 95 Mechanical Ventilator 40 04/07/19 08:30 116 23 124/86 97 Mechanical Ventilator 40 04/07/19 08:30 98 04/07/19 08:00 40 04/07/19 08:00 98.3 117 23 146/98 97 Mechanical Ventilator 40 04/07/19 08:00 Mechanical Ventilator 04/07/19 07:00 134 26 151/97 96 Mechanical Ventilator 40 04/07/19 06:58 132 23 40 40 04/07/19 06:45 110 19 140/92 100 Mechanical Ventilator 40 04/07/19 06:30 111 26 04/07/19 06:30 112 22 138/93 99 Mechanical Ventilator 40 04/07/19 06:15 122 26 132/89 97 Mechanical Ventilator 40 04/07/19 06:00 127 19 160/97 100 Mechanical Ventilator 40 04/07/19 05:45 119 22 149/100 99 Mechanical Ventilator 40 04/07/19 05:30 110 25 126/85 97 Mechanical Ventilator 40 04/07/19 05:15 124 26 120/80 97 Mechanical Ventilator 40 04/07/19 05:11 117 27 40 04/07/19 05:00 21 Mechanical Ventilator 40 04/07/19 05:00 132 24 162/108 96 Mechanical Ventilator 40 04/07/19 04:45 139 23 184/123 95 Mechanical Ventilator 40 04/07/19 04:30 168 20 182/121 94 Mechanical Ventilator 40 04/07/19 04:00 98.9 103 23 147/97 98 Mechanical Ventilator 40 04/07/19 04:00 24 Mechanical Ventilator 40 04/07/19 04:00 40 04/07/19 04:00 Mechanical Ventilator 04/07/19 03:45 103 21 134/85 98 Mechanical Ventilator 40 04/07/19 03:30 102 04/07/19 03:30 99 22 121/91 98 Mechanical Ventilator 40 04/07/19 03:15 102 21 133/88 98 Mechanical Ventilator 40 04/07/19 03:02 97 26 40 04/07/19 03:00 21 Mechanical Ventilator 40 04/07/19 03:00 98 25 131/91 98 Mechanical Ventilator 40 04/07/19 02:45 105 21 138/90 97 Mechanical Ventilator 40 04/07/19 02:30 105 20 134/93 98 Mechanical Ventilator 40 04/07/19 02:15 107 20 134/102 98 Mechanical Ventilator 40 04/07/19 02:00 111 21 138/97 98 Mechanical Ventilator 40 04/07/19 02:00 20 Mechanical Ventilator 40 04/07/19 01:45 104 26 136/96 100 Mechanical Ventilator 40 04/07/19 01:39 23 Mechanical Ventilator 40 04/07/19 01:30 101 24 126/89 100 Mechanical Ventilator 40 04/07/19 01:15 99 25 138/94 99 Mechanical Ventilator 40 04/07/19 01:02 100 26 40 04/07/19 01:00 101 25 131/92 98 Mechanical Ventilator 40 04/07/19 01:00 25 Mechanical Ventilator 40 04/07/19 00:45 119 26 148/104 99 Mechanical Ventilator 40 04/07/19 00:30 104 24 134/93 99 Mechanical Ventilator 40 04/07/19 00:15 104 22 121/83 98 Mechanical Ventilator 40 04/07/19 00:00 98.9 107 21 129/86 98 Mechanical Ventilator 40 04/07/19 00:00 Mechanical Ventilator 04/07/19 00:00 40 04/07/19 00:00 27 Mechanical Ventilator 40 04/06/19 23:45 107 22 123/87 99 Mechanical Ventilator 40 04/06/19 23:15 104 24 127/86 99 Mechanical Ventilator 40 04/06/19 23:15 116 27 40 04/06/19 23:07 20 Mechanical Ventilator 40 04/06/19 23:04 130 04/06/19 23:00 20 Mechanical Ventilator 40 04/06/19 23:00 95 26 119/86 98 Mechanical Ventilator 40 04/06/19 22:00 18 Mechanical Ventilator 40 04/06/19 21:45 99 26 115/79 98 Mechanical Ventilator 40 04/06/19 21:30 105 23 116/73 97 Mechanical Ventilator 40 04/06/19 21:15 110 21 121/85 97 Mechanical Ventilator 40 04/06/19 21:00 106 28 40 04/06/19 21:00 26 Mechanical Ventilator 40 04/06/19 21:00 108 20 117/77 97 Mechanical Ventilator 40 04/06/19 20:45 113 23 123/78 97 Mechanical Ventilator 40 04/06/19 20:30 120 26 131/80 94 Mechanical Ventilator 40 04/06/19 20:29 18 Mechanical Ventilator 40 04/06/19 20:15 112 25 122/83 97 Mechanical Ventilator 40 04/06/19 20:00 Mechanical Ventilator 04/06/19 20:00 105 04/06/19 20:00 40 04/06/19 20:00 100.7 112 22 110/70 97 Mechanical Ventilator 40 04/06/19 19:45 107 22 99/60 97 Mechanical Ventilator 40 04/06/19 19:30 109 29 91/58 97 Mechanical Ventilator 40 04/06/19 19:28 99.1 04/06/19 19:15 112 23 98/63 97 Mechanical Ventilator 40 04/06/19 19:00 114 17 97/62 97 Mechanical Ventilator 40 04/06/19 19:00 110 33 40 04/06/19 19:00 26 Mechanical Ventilator 40 04/06/19 18:45 100.8 118 17 104/65 97 Mechanical Ventilator 40 04/06/19 18:30 116 20 95/58 97 Mechanical Ventilator 40 04/06/19 18:15 116 22 104/62 97 Mechanical Ventilator 40 04/06/19 18:00 117 26 112/67 96 Mechanical Ventilator 40 04/06/19 18:00 26 Mechanical Ventilator 40 04/06/19 17:45 127 24 132/76 96 Mechanical Ventilator 40 04/06/19 17:30 132 27 132/83 93 Mechanical Ventilator 40 04/06/19 17:23 115 24 40 04/06/19 17:15 115 24 121/78 98 Mechanical Ventilator 40 04/06/19 17:00 26 Mechanical Ventilator 40 04/06/19 17:00 115 22 117/72 97 Mechanical Ventilator 40 04/06/19 16:45 114 25 110/70 98 Mechanical Ventilator 40 04/06/19 16:30 116 24 119/76 98 Mechanical Ventilator 40 04/06/19 16:15 107 26 121/84 99 Mechanical Ventilator 40 04/06/19 16:15 26 Mechanical Ventilator 40 04/06/19 16:00 Mechanical Ventilator 04/06/19 16:00 98.5 99 26 108/65 98 Mechanical Ventilator 40 04/06/19 16:00 40 04/06/19 16:00 26 Mechanical Ventilator 40 04/06/19 16:00 99 04/06/19 15:45 101 26 109/63 99 Mechanical Ventilator 40 04/06/19 15:30 100 26 102/60 98 Mechanical Ventilator 40 04/06/19 15:20 26 Mechanical Ventilator 40 04/06/19 15:15 100 26 102/60 98 Mechanical Ventilator 40 04/06/19 15:11 26 Mechanical Ventilator 40 04/06/19 15:03 98 26 40 04/06/19 15:00 101 26 101/60 98 Mechanical Ventilator 40 04/06/19 14:45 102 26 101/58 98 Mechanical Ventilator 40 04/06/19 14:30 104 26 99/61 98 Mechanical Ventilator 40 04/06/19 14:21 26 Mechanical Ventilator 40 04/06/19 14:20 26 Mechanical Ventilator 40 04/06/19 14:15 106 26 99/61 99 Mechanical Ventilator 40 04/06/19 14:00 108 26 99/60 99 Mechanical Ventilator 40 04/06/19 14:00 26 Mechanical Ventilator 40 04/06/19 13:45 109 26 106/73 98 Mechanical Ventilator 40 04/06/19 13:45 26 Mechanical Ventilator 40 04/06/19 13:30 116 25 119/68 98 Mechanical Ventilator 40 04/06/19 13:30 26 Mechanical Ventilator 40 04/06/19 13:15 127 25 126/76 98 Mechanical Ventilator 40 04/06/19 13:15 26 Mechanical Ventilator 40 04/06/19 13:00 26 Mechanical Ventilator 40 04/06/19 13:00 133 26 174/98 97 Mechanical Ventilator 40 04/06/19 12:45 127 24 140/94 97 Mechanical Ventilator 40 04/06/19 12:45 25 Mechanical Ventilator 40 04/06/19 12:42 120 31 40 04/06/19 12:40 26 Mechanical Ventilator 40 04/06/19 12:30 119 25 124/78 98 Mechanical Ventilator 40 04/06/19 12:15 125 25 147/93 98 Mechanical Ventilator 40 04/06/19 12:10 24 Mechanical Ventilator 40 04/06/19 12:00 90 04/06/19 12:00 Mechanical Ventilator 04/06/19 12:00 99.7 119 26 136/89 99 Mechanical Ventilator 40 04/06/19 12:00 26 Mechanical Ventilator 40 04/06/19 11:45 115 26 139/87 98 Mechanical Ventilator 40 04/06/19 11:40 25 Mechanical Ventilator 40 04/06/19 11:30 117 23 142/90 98 Mechanical Ventilator 40 04/06/19 11:30 25 Mechanical Ventilator 40 04/06/19 11:15 121 26 152/122 97 Mechanical Ventilator 40 04/06/19 11:00 110 24 140/93 99 Mechanical Ventilator 40 04/06/19 11:00 25 Mechanical Ventilator 40 04/06/19 10:45 115 26 157/103 100 Mechanical Ventilator 40 04/06/19 10:45 26 Mechanical Ventilator 40 Intake and Output 04/06/19 04/07/19 18:59 06:59 Intake Total 643.72818 ml 670.58 ml Output Total 1200 ml 1265 ml Balance -556.05266 ml -594.42 ml Free Water 40 ml 90 ml IV Total 273.83658 ml 215.58 ml Tube Feeding 330 ml 365 ml Output Urine Total 1200 ml 1265 ml Laboratory Tests 04/07/19 04:00: White Blood Count 11.1H, Red Blood Count 2.50L, Hemoglobin 7.6L, Hematocrit 23.9L, Mean Corpuscular Volume 96#, Mean Corpuscular Hemoglobin 30.2, Mean Corpuscular Hemoglobin Concent 31.6L, Red Cell Distribution Width 19.6H, Platelet Count 340, Mean Platelet Volume 6.5, Neutrophils (%) (Auto) , Lymphocytes (%) (Auto) , Monocytes (%) (Auto) , Eosinophils (%) (Auto) , Basophils (%) (Auto) , Differential Total Cells Counted 100, Neutrophils % ( Manual) 62, Lymphocytes % (Manual) 31, Monocytes % (Manual) 7, Eosinophils % ( Manual) 0, Basophils % (Manual) 0, Band Neutrophils 0, Platelet Estimate Adequate, Platelet Morphology Normal, Hypochromasia 3+, Anisocytosis 2+, Sodium Level 148H, Potassium Level 3.8, Chloride Level 111H, Carbon Dioxide Level 31, Anion Gap 6, Blood Urea Nitrogen 21H, Creatinine 2.5H, Estimat Glomerular Filtration Rate 25.7, Glucose Level 164H, Uric Acid 5.3, Calcium Level 9.4, Phosphorus Level 5.6H, Magnesium Level 2.1, Total Bilirubin 0.6, Gamma Glutamyl Transpeptidase 526H, Aspartate Amino Transf (AST/SGOT) 41H, Alanine Aminotransferase (ALT/SGPT) 134H, Alkaline Phosphatase 386H, C-Reactive Protein , Quantitative 10.6H, Pro-B-Type Natriuretic Peptide 1171H, Total Protein 6.9, Albumin 2.0L, Globulin 4.9, Albumin/Globulin Ratio 0.4L 04/07/19 08:50: Arterial Blood pH 7.477H, Arterial Blood Partial Pressure CO2 45.6H, Arterial Blood Partial Pressure O2 84.3, Arterial Blood HCO3 33.0H, Arterial Blood Oxygen Saturation 95.6, Arterial Blood Base Excess 8.5H, Amarjit Test Positive Height (Feet): 5 Height (Inches): 2.00 Weight (Pounds): 189 General Appearance: lethargic EENT: normal ENT inspection Neck: supple Cardiovascular: normal rate Respiratory/Chest: decreased breath sounds Abdomen: normal bowel sounds, non tender, soft Extremities: non-tender Monty Jaimes MD Apr 07, 2019 10:37
--- NOTE | 2019-04-07 11:30 | Infectious Diseases Prog Note ---
Assessment/Plan Assessment/Plan Assessment: Sepsis PNA -04/03 CXR: Extensive parenchymal consolidation, left lung greater than right, similar to prior. -04/02 BCx NTD sp cx MDR ABC (S bactrim), S. marcences (R ancef; otherwise S), PsA (black S) u/a wbc 15-20, n it neg, leuk +2; ucx yeast -04/01 CXR: Possible new or increased right pleural effusion. Otherwise unchanged over 3 days as described, including bilateral pulmonary interstitial and airspace edema versus infiltrates -03/28 sp cx normal resp elodia -11/30 u/a neg; ucx 20-30k uro elodia -Influenza sc neg Fever, improving Leukocytosis, worsened, now improving Acute on chronic pancreatitis -CT abd/p: Evidence of acute on chronic pancreatitis. No pseudocyst. Hepatomegaly with severe steatosis. Mild hiatal hernia. AVINASH, improving -Renal US: Negative ultrasound the kidneys. Shock liver; LFTs improving -Abd US: No acute findings. Questionable mild pericholecystic fluid -acute hep panel neg -HIV ab sc neg Dm2 HTN tobacco and ETOH abuse COPD pancreatitis s/p multiple hernia operations x3 -first two in 2015; Last repair May 2018 with mesh placement at [facility] in [place] obesity Plan: -Continue empiric Meropenem #10/04-14 and PO Bactrim #3--14 for MDR ABC -04/04 SP IV Vancomycin #8 -04/02 SP Zosyn #6 -f/u cx -Monitor CBC/CMP, temperatures -ETT/ICU care -aspiration precautions -CXR am Thank you for this consultation. Will continue to follow along with you. Discussed with RN Subjective Allergies: Coded Allergies: No Known Allergies (Unverified , 08/04/18) Subjective Tm 100.8 wbc improving Objective Vital Signs Last 24 Hour Vital Signs Date Time Temp Pulse Resp B/P (MAP) Pulse Ox O2 Delivery O2 Flow Rate FiO2 04/07/19 11:14 124 26 40 04/07/19 10:00 148 21 168/114 95 Mechanical Ventilator 40 04/07/19 10:00 40 04/07/19 09:30 129 25 149/94 97 Mechanical Ventilator 40 04/07/19 09:07 144 31 40 04/07/19 09:00 129 23 142/93 95 Mechanical Ventilator 40 04/07/19 08:30 116 23 124/86 97 Mechanical Ventilator 40 04/07/19 08:30 98 04/07/19 08:00 40 04/07/19 08:00 98.3 117 23 146/98 97 Mechanical Ventilator 40 04/07/19 08:00 Mechanical Ventilator 04/07/19 07:00 134 26 151/97 96 Mechanical Ventilator 40 04/07/19 06:58 132 23 40 40 04/07/19 06:45 110 19 140/92 100 Mechanical Ventilator 40 04/07/19 06:30 111 26 04/07/19 06:30 112 22 138/93 99 Mechanical Ventilator 40 04/07/19 06:15 122 26 132/89 97 Mechanical Ventilator 40 04/07/19 06:00 127 19 160/97 100 Mechanical Ventilator 40 04/07/19 05:45 119 22 149/100 99 Mechanical Ventilator 40 04/07/19 05:30 110 25 126/85 97 Mechanical Ventilator 40 04/07/19 05:15 124 26 120/80 97 Mechanical Ventilator 40 04/07/19 05:11 117 27 40 04/07/19 05:00 21 Mechanical Ventilator 40 04/07/19 05:00 132 24 162/108 96 Mechanical Ventilator 40 04/07/19 04:45 139 23 184/123 95 Mechanical Ventilator 40 04/07/19 04:30 168 20 182/121 94 Mechanical Ventilator 40 04/07/19 04:00 98.9 103 23 147/97 98 Mechanical Ventilator 40 04/07/19 04:00 24 Mechanical Ventilator 40 04/07/19 04:00 40 04/07/19 04:00 Mechanical Ventilator 04/07/19 03:45 103 21 134/85 98 Mechanical Ventilator 40 04/07/19 03:30 102 04/07/19 03:30 99 22 121/91 98 Mechanical Ventilator 40 04/07/19 03:15 102 21 133/88 98 Mechanical Ventilator 40 04/07/19 03:02 97 26 40 04/07/19 03:00 21 Mechanical Ventilator 40 04/07/19 03:00 98 25 131/91 98 Mechanical Ventilator 40 04/07/19 02:45 105 21 138/90 97 Mechanical Ventilator 40 04/07/19 02:30 105 20 134/93 98 Mechanical Ventilator 40 04/07/19 02:15 107 20 134/102 98 Mechanical Ventilator 40 04/07/19 02:00 111 21 138/97 98 Mechanical Ventilator 40 04/07/19 02:00 20 Mechanical Ventilator 40 04/07/19 01:45 104 26 136/96 100 Mechanical Ventilator 40 04/07/19 01:39 23 Mechanical Ventilator 40 04/07/19 01:30 101 24 126/89 100 Mechanical Ventilator 40 04/07/19 01:15 99 25 138/94 99 Mechanical Ventilator 40 04/07/19 01:02 100 26 40 04/07/19 01:00 101 25 131/92 98 Mechanical Ventilator 40 04/07/19 01:00 25 Mechanical Ventilator 40 04/07/19 00:45 119 26 148/104 99 Mechanical Ventilator 40 04/07/19 00:30 104 24 134/93 99 Mechanical Ventilator 40 04/07/19 00:15 104 22 121/83 98 Mechanical Ventilator 40 04/07/19 00:00 98.9 107 21 129/86 98 Mechanical Ventilator 40 04/07/19 00:00 Mechanical Ventilator 04/07/19 00:00 40 04/07/19 00:00 27 Mechanical Ventilator 40 04/06/19 23:45 107 22 123/87 99 Mechanical Ventilator 40 04/06/19 23:15 104 24 127/86 99 Mechanical Ventilator 40 04/06/19 23:15 116 27 40 04/06/19 23:07 20 Mechanical Ventilator 40 04/06/19 23:04 130 04/06/19 23:00 20 Mechanical Ventilator 40 04/06/19 23:00 95 26 119/86 98 Mechanical Ventilator 40 04/06/19 22:00 18 Mechanical Ventilator 40 04/06/19 21:45 99 26 115/79 98 Mechanical Ventilator 40 04/06/19 21:30 105 23 116/73 97 Mechanical Ventilator 40 04/06/19 21:15 110 21 121/85 97 Mechanical Ventilator 40 04/06/19 21:00 106 28 40 04/06/19 21:00 26 Mechanical Ventilator 40 04/06/19 21:00 108 20 117/77 97 Mechanical Ventilator 40 04/06/19 20:45 113 23 123/78 97 Mechanical Ventilator 40 04/06/19 20:30 120 26 131/80 94 Mechanical Ventilator 40 04/06/19 20:29 18 Mechanical Ventilator 40 04/06/19 20:15 112 25 122/83 97 Mechanical Ventilator 40 04/06/19 20:00 Mechanical Ventilator 04/06/19 20:00 105 04/06/19 20:00 40 04/06/19 20:00 100.7 112 22 110/70 97 Mechanical Ventilator 40 04/06/19 19:45 107 22 99/60 97 Mechanical Ventilator 40 04/06/19 19:30 109 29 91/58 97 Mechanical Ventilator 40 04/06/19 19:28 99.1 04/06/19 19:15 112 23 98/63 97 Mechanical Ventilator 40 04/06/19 19:00 114 17 97/62 97 Mechanical Ventilator 40 04/06/19 19:00 110 33 40 04/06/19 19:00 26 Mechanical Ventilator 40 04/06/19 18:45 100.8 118 17 104/65 97 Mechanical Ventilator 40 04/06/19 18:30 116 20 95/58 97 Mechanical Ventilator 40 04/06/19 18:15 116 22 104/62 97 Mechanical Ventilator 40 04/06/19 18:00 117 26 112/67 96 Mechanical Ventilator 40 04/06/19 18:00 26 Mechanical Ventilator 40 04/06/19 17:45 127 24 132/76 96 Mechanical Ventilator 40 04/06/19 17:30 132 27 132/83 93 Mechanical Ventilator 40 04/06/19 17:23 115 24 40 04/06/19 17:15 115 24 121/78 98 Mechanical Ventilator 40 04/06/19 17:00 26 Mechanical Ventilator 40 04/06/19 17:00 115 22 117/72 97 Mechanical Ventilator 40 04/06/19 16:45 114 25 110/70 98 Mechanical Ventilator 40 04/06/19 16:30 116 24 119/76 98 Mechanical Ventilator 40 04/06/19 16:15 107 26 121/84 99 Mechanical Ventilator 40 04/06/19 16:15 26 Mechanical Ventilator 40 04/06/19 16:00 Mechanical Ventilator 04/06/19 16:00 98.5 99 26 108/65 98 Mechanical Ventilator 40 04/06/19 16:00 40 04/06/19 16:00 26 Mechanical Ventilator 40 04/06/19 16:00 99 04/06/19 15:45 101 26 109/63 99 Mechanical Ventilator 40 04/06/19 15:30 100 26 102/60 98 Mechanical Ventilator 40 04/06/19 15:20 26 Mechanical Ventilator 40 04/06/19 15:15 100 26 102/60 98 Mechanical Ventilator 40 04/06/19 15:11 26 Mechanical Ventilator 40 04/06/19 15:03 98 26 40 04/06/19 15:00 101 26 101/60 98 Mechanical Ventilator 40 04/06/19 14:45 102 26 101/58 98 Mechanical Ventilator 40 04/06/19 14:30 104 26 99/61 98 Mechanical Ventilator 40 04/06/19 14:21 26 Mechanical Ventilator 40 04/06/19 14:20 26 Mechanical Ventilator 40 04/06/19 14:15 106 26 99/61 99 Mechanical Ventilator 40 04/06/19 14:00 108 26 99/60 99 Mechanical Ventilator 40 04/06/19 14:00 26 Mechanical Ventilator 40 04/06/19 13:45 109 26 106/73 98 Mechanical Ventilator 40 04/06/19 13:45 26 Mechanical Ventilator 40 04/06/19 13:30 116 25 119/68 98 Mechanical Ventilator 40 04/06/19 13:30 26 Mechanical Ventilator 40 04/06/19 13:15 127 25 126/76 98 Mechanical Ventilator 40 04/06/19 13:15 26 Mechanical Ventilator 40 04/06/19 13:00 26 Mechanical Ventilator 40 04/06/19 13:00 133 26 174/98 97 Mechanical Ventilator 40 04/06/19 12:45 127 24 140/94 97 Mechanical Ventilator 40 04/06/19 12:45 25 Mechanical Ventilator 40 04/06/19 12:42 120 31 40 04/06/19 12:40 26 Mechanical Ventilator 40 04/06/19 12:30 119 25 124/78 98 Mechanical Ventilator 40 04/06/19 12:15 125 25 147/93 98 Mechanical Ventilator 40 04/06/19 12:10 24 Mechanical Ventilator 40 04/06/19 12:00 90 04/06/19 12:00 Mechanical Ventilator 04/06/19 12:00 99.7 119 26 136/89 99 Mechanical Ventilator 40 04/06/19 12:00 26 Mechanical Ventilator 40 04/06/19 11:45 115 26 139/87 98 Mechanical Ventilator 40 04/06/19 11:40 25 Mechanical Ventilator 40 04/06/19 11:30 117 23 142/90 98 Mechanical Ventilator 40 04/06/19 11:30 25 Mechanical Ventilator 40 Height (Feet): 5 Height (Inches): 2.00 Weight (Pounds): 189 Objective GENERAL: The patient is a well-developed, well-nourished, obese female, in no apparent distress. HEENT: Eyes, pupils equal and responsive to light and accommodation. Extraocular movements are intact. NECK: Supple. No lymphadenopathy. CHEST: Lungs are clear to auscultation bilaterally without wheezes or rales. CARDIOVASCULAR: Regular rate. S1, S2 normal without murmurs, rubs, or gallops. ABDOMEN: Soft, tender to palpation in the epigastric region, with decreased bowel sounds. There is tenderness to palpation in the epigastric region. There is no rebound or guarding noted. EXTREMITIES: Negative for clubbing, cyanosis, or edema. Laboratory Tests Test 04/07/19 04:00 04/07/19 08:50 White Blood Count 11.1 K/UL (4.8-10.8) H Red Blood Count 2.50 M/UL (4.20-5.40) L Hemoglobin 7.6 G/DL (12.0-16.0) L Hematocrit 23.9 % (37.0-47.0) L Mean Corpuscular Volume 96 FL (80-99) # Mean Corpuscular Hemoglobin 30.2 PG (27.0-31.0) Mean Corpuscular Hemoglobin Concent 31.6 G/DL (32.0-36.0) L Red Cell Distribution Width 19.6 % (11.6-14.8) H Platelet Count 340 K/UL (150-450) Mean Platelet Volume 6.5 FL (6.5-10.1) Neutrophils (%) (Auto) % (45.0-75.0) Lymphocytes (%) (Auto) % (20.0-45.0) Monocytes (%) (Auto) % (1.0-10.0) Eosinophils (%) (Auto) % (0.0-3.0) Basophils (%) (Auto) % (0.0-2.0) Differential Total Cells Counted 100 Neutrophils % (Manual) 62 % (45-75) Lymphocytes % (Manual) 31 % (20-45) Monocytes % (Manual) 7 % (1-10) Eosinophils % (Manual) 0 % (0-3) Basophils % (Manual) 0 % (0-2) Band Neutrophils 0 % (0-8) Platelet Estimate Adequate Platelet Morphology Normal Hypochromasia 3+ Anisocytosis 2+ Sodium Level 148 MMOL/L (136-145) H Potassium Level 3.8 MMOL/L (3.5-5.1) Chloride Level 111 MMOL/L (98-107) H Carbon Dioxide Level 31 MMOL/L (21-32) Anion Gap 6 mmol/L (5-15) Blood Urea Nitrogen 21 mg/dL (7-18) H Creatinine 2.5 MG/DL (0.55-1.30) H Estimat Glomerular Filtration Rate 25.7 mL/min (>60) Glucose Level 164 MG/DL (74-106) H Uric Acid 5.3 MG/DL (2.6-7.2) Calcium Level 9.4 MG/DL (8.5-10.1) Phosphorus Level 5.6 MG/DL (2.5-4.9) H Magnesium Level 2.1 MG/DL (1.8-2.4) Total Bilirubin 0.6 MG/DL (0.2-1.0) Gamma Glutamyl Transpeptidase 526 U/L (5-85) H Aspartate Amino Transf (AST/SGOT) 41 U/L (15-37) H Alanine Aminotransferase (ALT/SGPT) 134 U/L (12-78) H Alkaline Phosphatase 386 U/L (46-116) H C-Reactive Protein, Quantitative 10.6 mg/dL (0.00-0.90) H Pro-B-Type Natriuretic Peptide 1171 pg/mL (0-125) H Total Protein 6.9 G/DL (6.4-8.2) Albumin 2.0 G/DL (3.4-5.0) L Globulin 4.9 g/dL Albumin/Globulin Ratio 0.4 (1.0-2.7) L Arterial Blood pH 7.477 (7.350-7.450) Arterial Blood Partial Pressure CO2 45.6 mmHg (35.0-45.0) H Arterial Blood Partial Pressure O2 84.3 mmHg (75.0-100.0) Arterial Blood HCO3 33.0 mmol/L (22.0-26.0) H Arterial Blood Oxygen Saturation 95.6 % (95-100) Arterial Blood Base Excess 8.5 (-2-2) H Amarjit Test Positive Current Medications Medications (Trade) Dose Ordered Sig/Greta Route PRN Reason Start Time Stop Time Status Last Admin Dose Admin Acetaminophen (Tylenol) 650 mg Q4H PRN GT T>100.5 03/30/19 09:45 04/29/19 09:44 04/06/19 18:51 Chlorhexidine Gluconate (Hetal-Hex 2%) 1 applic DAILY@2000 TOPIC 03/27/19 20:00 04/26/19 19:59 04/06/19 20:24 Clonidine HCl (Catapres Tab) 0.1 mg Q8H PRN NG For High Blood Pressure 04/05/19 17:30 05/05/19 17:29 Dextrose (Dextrose 50%) 25 ml Q30M PRN IV Hypoglycemia 03/28/19 11:30 04/27/19 11:29 Dextrose (Dextrose 50%) 50 ml Q30M PRN IV Hypoglycemia 03/28/19 11:30 04/27/19 11:29 Epoetin John (Epoetin John(ESRD on dialysis)) 10,000 unit THU-THU-THU SUBQ 03/30/19 21:00 04/29/19 20:59 04/06/19 20:24 Fentanyl Citrate 1000 mcg/Sodium Chloride 100 ml @ 0 mls/hr Q24H IV 04/05/19 17:30 04/12/19 17:29 04/07/19 01:39 Guaifenesin (Robitussin) 200 mg Q4H PRN GT For Cough 03/30/19 09:45 04/26/19 11:14 Hydralazine HCl (Apresoline) 10 mg Q6H PRN IV For High Blood Pressure 04/05/19 17:30 05/05/19 17:29 04/05/19 18:09 Insulin Aspart (NovoLOG) Q6HR SUBQ 04/03/19 12:00 04/27/19 11:59 04/07/19 05:35 Insulin Detemir (Levemir) 6 units BID SUBQ 03/30/19 09:00 04/27/19 11:59 04/06/19 17:27 Lorazepam (Ativan 2mg/ml 1ml) 1 mg Q2H PRN IV For Anxiety 04/05/19 17:30 04/12/19 17:29 04/07/19 04:47 Meropenem 500 mg/ Sodium Chloride 55 ml @ 110 mls/hr Q24H IVPB 04/03/19 16:00 04/12/19 15:59 04/06/19 16:50 Morphine Sulfate (Morphine Sulfate) 2 mg Q2H PRN IVP Severe Pain (Pain Scale 7-10) 04/03/19 20:30 04/10/19 20:29 04/07/19 06:08 Nitroglycerin (Ntg) 0.4 mg Q5MIN X 3 DOSES PRN SL Prn Chest Pain 03/26/19 20:15 04/25/19 20:14 Ondansetron HCl (Zofran) 4 mg Q6H PRN IVP Nausea & Vomiting 03/26/19 20:00 04/25/19 19:59 03/30/19 06:20 Pantoprazole (Protonix) 40 mg EVERY 12 HOURS IVP 03/30/19 09:00 04/29/19 08:59 04/07/19 08:48 Polyethylene Glycol (Miralax) 17 gm DAILYPRN PRN ORAL Constipation 03/26/19 20:00 04/25/19 19:59 Thiamine HCl 100 mg/Sodium Chloride 56 ml @ 112 mls/hr DAILY IVPB 03/29/19 09:00 04/28/19 08:59 04/07/19 09:41 Trimethoprim/ Sulfamethoxazole (Bactrim Single Strength) 1 tab Q24H ORAL 04/06/19 18:00 04/13/19 17:59 04/06/19 17:17 Lazara Dozier M.D. Apr 07, 2019 11:30
[2019-04-07] MEDS: Dexamethasone 4mg/ml vial IVP SCH ×2 (14:03→21:06)
--- NOTE | 2019-04-07 14:19 | Diagnostic Imaging Report ---
Indication: NG tube placement Technique: XRAY Abdomen 1v Comparison: 04/05/2019 Findings: Nasogastric tube tip projects in the region of the body. Bowel gas pattern is nonspecific but not overtly obstructive. A right transfemoral central venous catheter is unchanged in position. A linear radiodensity noted in the right aspect of the pelvis which may represent a fallopian tubal occlusion device. Hoffmann catheter noted. No acute osseous abnormality identified. Airspace disease of the lung bases partially visualized. Impression: Nasogastric tube in satisfactory position
--- NOTE | 2019-04-07 15:05 | Nephrology Progress Note ---
Assessment/Plan Problem List: (1) Acute renal failure (ARF) (2) Respiratory failure (3) DKA (diabetic ketoacidoses) (4) LFT elevation (5) Electrolyte imbalance Assessment: Low Mag and Low Ca (6) Thrombocytopathia Assessment Acute respiratory failure Acute renal failure high LFTs, thrombocytopenia ? HUS ? 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 Ca and Mag IV Vit K Vit D Echo Hyperkinetic wall motion. Left ventricular ejection fraction estimated to be 55-60 %. Moderate left ventricular hypertrophy by 2D. Abd CT: Evidence of acute on chronic pancreatitis. No pseudocyst. Hepatomegaly with severe steatosis. Subjective ROS Limited/Unobtainable: Yes Objective Objective Last 24 Hour Vital Signs Date Time Temp Pulse Resp B/P (MAP) Pulse Ox O2 Delivery O2 Flow Rate FiO2 04/07/19 13:04 123 30 40 04/07/19 13:00 115 24 136/96 99 Mechanical Ventilator 40 04/07/19 12:00 40 04/07/19 12:00 100.4 140 18 165/102 95 Mechanical Ventilator 40 04/07/19 12:00 Mechanical Ventilator 04/07/19 11:14 124 26 40 04/07/19 11:00 126 24 142/94 99 Mechanical Ventilator 40 04/07/19 10:00 148 21 168/114 95 Mechanical Ventilator 40 04/07/19 10:00 40 04/07/19 09:30 129 25 149/94 97 Mechanical Ventilator 40 04/07/19 09:07 144 31 40 04/07/19 09:00 129 23 142/93 95 Mechanical Ventilator 40 04/07/19 08:30 116 23 124/86 97 Mechanical Ventilator 40 04/07/19 08:30 98 04/07/19 08:00 40 04/07/19 08:00 98.3 117 23 146/98 97 Mechanical Ventilator 40 04/07/19 08:00 119 04/07/19 08:00 Mechanical Ventilator 04/07/19 07:00 134 26 151/97 96 Mechanical Ventilator 40 04/07/19 06:58 132 23 40 40 04/07/19 06:45 110 19 140/92 100 Mechanical Ventilator 40 04/07/19 06:30 111 26 04/07/19 06:30 112 22 138/93 99 Mechanical Ventilator 40 04/07/19 06:15 122 26 132/89 97 Mechanical Ventilator 40 04/07/19 06:00 127 19 160/97 100 Mechanical Ventilator 40 04/07/19 05:45 119 22 149/100 99 Mechanical Ventilator 40 04/07/19 05:30 110 25 126/85 97 Mechanical Ventilator 40 04/07/19 05:15 124 26 120/80 97 Mechanical Ventilator 40 04/07/19 05:11 117 27 40 04/07/19 05:00 21 Mechanical Ventilator 40 04/07/19 05:00 132 24 162/108 96 Mechanical Ventilator 40 04/07/19 04:45 139 23 184/123 95 Mechanical Ventilator 40 04/07/19 04:30 168 20 182/121 94 Mechanical Ventilator 40 04/07/19 04:00 98.9 103 23 147/97 98 Mechanical Ventilator 40 04/07/19 04:00 24 Mechanical Ventilator 40 04/07/19 04:00 40 04/07/19 04:00 Mechanical Ventilator 04/07/19 03:45 103 21 134/85 98 Mechanical Ventilator 40 04/07/19 03:30 102 04/07/19 03:30 99 22 121/91 98 Mechanical Ventilator 40 04/07/19 03:15 102 21 133/88 98 Mechanical Ventilator 40 04/07/19 03:02 97 26 40 04/07/19 03:00 21 Mechanical Ventilator 40 04/07/19 03:00 98 25 131/91 98 Mechanical Ventilator 40 04/07/19 02:45 105 21 138/90 97 Mechanical Ventilator 40 04/07/19 02:30 105 20 134/93 98 Mechanical Ventilator 40 04/07/19 02:15 107 20 134/102 98 Mechanical Ventilator 40 04/07/19 02:00 111 21 138/97 98 Mechanical Ventilator 40 04/07/19 02:00 20 Mechanical Ventilator 40 04/07/19 01:45 104 26 136/96 100 Mechanical Ventilator 40 04/07/19 01:39 23 Mechanical Ventilator 40 04/07/19 01:30 101 24 126/89 100 Mechanical Ventilator 40 04/07/19 01:15 99 25 138/94 99 Mechanical Ventilator 40 04/07/19 01:02 100 26 40 04/07/19 01:00 101 25 131/92 98 Mechanical Ventilator 40 04/07/19 01:00 25 Mechanical Ventilator 40 04/07/19 00:45 119 26 148/104 99 Mechanical Ventilator 40 04/07/19 00:30 104 24 134/93 99 Mechanical Ventilator 40 04/07/19 00:15 104 22 121/83 98 Mechanical Ventilator 40 04/07/19 00:00 98.9 107 21 129/86 98 Mechanical Ventilator 40 04/07/19 00:00 Mechanical Ventilator 04/07/19 00:00 40 04/07/19 00:00 27 Mechanical Ventilator 40 04/06/19 23:45 107 22 123/87 99 Mechanical Ventilator 40 04/06/19 23:15 104 24 127/86 99 Mechanical Ventilator 40 04/06/19 23:15 116 27 40 04/06/19 23:07 20 Mechanical Ventilator 40 04/06/19 23:04 130 04/06/19 23:00 20 Mechanical Ventilator 40 04/06/19 23:00 95 26 119/86 98 Mechanical Ventilator 40 04/06/19 22:00 18 Mechanical Ventilator 40 04/06/19 21:45 99 26 115/79 98 Mechanical Ventilator 40 04/06/19 21:30 105 23 116/73 97 Mechanical Ventilator 40 04/06/19 21:15 110 21 121/85 97 Mechanical Ventilator 40 04/06/19 21:00 106 28 40 04/06/19 21:00 26 Mechanical Ventilator 40 04/06/19 21:00 108 20 117/77 97 Mechanical Ventilator 40 04/06/19 20:45 113 23 123/78 97 Mechanical Ventilator 40 04/06/19 20:30 120 26 131/80 94 Mechanical Ventilator 40 04/06/19 20:29 18 Mechanical Ventilator 40 04/06/19 20:15 112 25 122/83 97 Mechanical Ventilator 40 04/06/19 20:00 Mechanical Ventilator 04/06/19 20:00 105 04/06/19 20:00 40 04/06/19 20:00 100.7 112 22 110/70 97 Mechanical Ventilator 40 04/06/19 19:45 107 22 99/60 97 Mechanical Ventilator 40 04/06/19 19:30 109 29 91/58 97 Mechanical Ventilator 40 04/06/19 19:28 99.1 04/06/19 19:15 112 23 98/63 97 Mechanical Ventilator 40 04/06/19 19:00 114 17 97/62 97 Mechanical Ventilator 40 04/06/19 19:00 110 33 40 04/06/19 19:00 26 Mechanical Ventilator 40 04/06/19 18:45 100.8 118 17 104/65 97 Mechanical Ventilator 40 04/06/19 18:30 116 20 95/58 97 Mechanical Ventilator 40 04/06/19 18:15 116 22 104/62 97 Mechanical Ventilator 40 04/06/19 18:00 117 26 112/67 96 Mechanical Ventilator 40 04/06/19 18:00 26 Mechanical Ventilator 40 04/06/19 17:45 127 24 132/76 96 Mechanical Ventilator 40 04/06/19 17:30 132 27 132/83 93 Mechanical Ventilator 40 04/06/19 17:23 115 24 40 04/06/19 17:15 115 24 121/78 98 Mechanical Ventilator 40 04/06/19 17:00 26 Mechanical Ventilator 40 04/06/19 17:00 115 22 117/72 97 Mechanical Ventilator 40 04/06/19 16:45 114 25 110/70 98 Mechanical Ventilator 40 04/06/19 16:30 116 24 119/76 98 Mechanical Ventilator 40 04/06/19 16:15 107 26 121/84 99 Mechanical Ventilator 40 04/06/19 16:15 26 Mechanical Ventilator 40 04/06/19 16:00 Mechanical Ventilator 04/06/19 16:00 98.5 99 26 108/65 98 Mechanical Ventilator 40 04/06/19 16:00 40 04/06/19 16:00 26 Mechanical Ventilator 40 04/06/19 16:00 99 04/06/19 15:45 101 26 109/63 99 Mechanical Ventilator 40 04/06/19 15:30 100 26 102/60 98 Mechanical Ventilator 40 04/06/19 15:20 26 Mechanical Ventilator 40 04/06/19 15:15 100 26 102/60 98 Mechanical Ventilator 40 04/06/19 15:11 26 Mechanical Ventilator 40 Intake and Output 04/06/19 04/07/19 18:59 06:59 Intake Total 643.97469 ml 670.58 ml Output Total 1200 ml 1265 ml Balance -556.56356 ml -594.42 ml Free Water 40 ml 90 ml IV Total 273.29916 ml 215.58 ml Tube Feeding 330 ml 365 ml Output Urine Total 1200 ml 1265 ml Laboratory Tests 04/07/19 04:00: White Blood Count 11.1H, Red Blood Count 2.50L, Hemoglobin 7.6L, Hematocrit 23.9L, Mean Corpuscular Volume 96#, Mean Corpuscular Hemoglobin 30.2, Mean Corpuscular Hemoglobin Concent 31.6L, Red Cell Distribution Width 19.6H, Platelet Count 340, Mean Platelet Volume 6.5, Neutrophils (%) (Auto) , Lymphocytes (%) (Auto) , Monocytes (%) (Auto) , Eosinophils (%) (Auto) , Basophils (%) (Auto) , Differential Total Cells Counted 100, Neutrophils % ( Manual) 62, Lymphocytes % (Manual) 31, Monocytes % (Manual) 7, Eosinophils % ( Manual) 0, Basophils % (Manual) 0, Band Neutrophils 0, Platelet Estimate Adequate, Platelet Morphology Normal, Hypochromasia 3+, Anisocytosis 2+, Sodium Level 148H, Potassium Level 3.8, Chloride Level 111H, Carbon Dioxide Level 31, Anion Gap 6, Blood Urea Nitrogen 21H, Creatinine 2.5H, Estimat Glomerular Filtration Rate 25.7, Glucose Level 164H, Uric Acid 5.3, Calcium Level 9.4, Phosphorus Level 5.6H, Magnesium Level 2.1, Total Bilirubin 0.6, Gamma Glutamyl Transpeptidase 526H, Aspartate Amino Transf (AST/SGOT) 41H, Alanine Aminotransferase (ALT/SGPT) 134H, Alkaline Phosphatase 386H, C-Reactive Protein , Quantitative 10.6H, Pro-B-Type Natriuretic Peptide 1171H, Total Protein 6.9, Albumin 2.0L, Globulin 4.9, Albumin/Globulin Ratio 0.4L 04/07/19 08:50: Arterial Blood pH 7.477H, Arterial Blood Partial Pressure CO2 45.6H, Arterial Blood Partial Pressure O2 84.3, Arterial Blood HCO3 33.0H, Arterial Blood Oxygen Saturation 95.6, Arterial Blood Base Excess 8.5H, Amarjit Test Positive Height (Feet): 5 Height (Inches): 2.00 Weight (Pounds): 189 General Appearance: no apparent distress EENT: other - vented Cardiovascular: tachycardia Respiratory/Chest: decreased breath sounds Abdomen: distended Objective no change Amrit Lopez MD Apr 07, 2019 15:05
[2019-04-07] MEDS: Meropenem 500mg/NS 55ml IVPB SCH ×2 (15:44)
[2019-04-07] MEDS: Acetaminophen 650mg/20.3ml GT PRN (16:56)
[2019-04-07] MEDS: Bactrim SS Tab ORAL SCH (17:30)
--- NOTE | 2019-04-07 17:31 | Internal Med Progress Note ---
Subjective Date of Service: Apr 07, 2019 Physician Name OfeliaMarshal Attending Physician Shree Mcintyre MD Current Medications Medications (Trade) Dose Ordered Sig/Greta Route PRN Reason Start Time Stop Time Status Last Admin Dose Admin Acetaminophen (Tylenol) 650 mg Q4H PRN GT T>100.5 03/30/19 09:45 04/29/19 09:44 04/07/19 16:56 Chlorhexidine Gluconate (Hetal-Hex 2%) 1 applic DAILY@2000 TOPIC 03/27/19 20:00 04/26/19 19:59 04/06/19 20:24 Clonidine HCl (Catapres Tab) 0.1 mg Q8H PRN NG For High Blood Pressure 04/05/19 17:30 05/05/19 17:29 Dexamethasone Sodium Phosphate (Decadron 4mg/ml vial) 4 mg Q8HR IVP 04/07/19 14:00 04/10/19 13:59 04/07/19 14:03 Dextrose (Dextrose 50%) 25 ml Q30M PRN IV Hypoglycemia 03/28/19 11:30 04/27/19 11:29 Dextrose (Dextrose 50%) 50 ml Q30M PRN IV Hypoglycemia 03/28/19 11:30 04/27/19 11:29 Epoetin John (Epoetin John(ESRD on dialysis)) 10,000 unit THU-THU-THU SUBQ 03/30/19 21:00 04/29/19 20:59 04/06/19 20:24 Fentanyl Citrate 1000 mcg/Sodium Chloride 100 ml @ 0 mls/hr Q24H IV 04/05/19 17:30 04/12/19 17:29 04/07/19 01:39 Guaifenesin (Robitussin) 200 mg Q4H PRN GT For Cough 03/30/19 09:45 04/26/19 11:14 Hydralazine HCl (Apresoline) 10 mg Q6H PRN IV For High Blood Pressure 04/05/19 17:30 05/05/19 17:29 04/05/19 18:09 Insulin Aspart (NovoLOG) Q6HR SUBQ 04/03/19 12:00 04/27/19 11:59 04/07/19 05:35 Insulin Detemir (Levemir) 6 units BID SUBQ 03/30/19 09:00 04/27/19 11:59 04/06/19 17:27 Lorazepam (Ativan 2mg/ml 1ml) 1 mg Q2H PRN IV For Anxiety 04/05/19 17:30 04/12/19 17:29 04/07/19 16:45 Meropenem 500 mg/ Sodium Chloride 55 ml @ 110 mls/hr Q24H IVPB 04/03/19 16:00 04/12/19 15:59 04/07/19 15:44 Morphine Sulfate (Morphine Sulfate) 2 mg Q2H PRN IVP Severe Pain (Pain Scale 7-10) 04/03/19 20:30 04/10/19 20:29 04/07/19 13:37 Nitroglycerin (Ntg) 0.4 mg Q5MIN X 3 DOSES PRN SL Prn Chest Pain 03/26/19 20:15 04/25/19 20:14 Ondansetron HCl (Zofran) 4 mg Q6H PRN IVP Nausea & Vomiting 03/26/19 20:00 04/25/19 19:59 03/30/19 06:20 Pantoprazole (Protonix) 40 mg EVERY 12 HOURS IVP 03/30/19 09:00 04/29/19 08:59 04/07/19 08:48 Polyethylene Glycol (Miralax) 17 gm DAILYPRN PRN ORAL Constipation 03/26/19 20:00 04/25/19 19:59 Thiamine HCl 100 mg/Sodium Chloride 56 ml @ 112 mls/hr DAILY IVPB 03/29/19 09:00 04/28/19 08:59 04/07/19 09:41 Trimethoprim/ Sulfamethoxazole (Bactrim Single Strength) 1 tab Q24H ORAL 04/06/19 18:00 04/13/19 17:59 04/06/19 17:17 Allergies: Coded Allergies: No Known Allergies (Unverified , 08/04/18) ROS Limited/Unobtainable: Yes Subjective 43 YO F admitted with diabetic ketoacidosis. Now ARDS and respiratory failure. Intubated and sedated. Cover for Int Jorge-Dr Mcintyre. ICU. Objective Last Vital Signs Date Time Temp Pulse Resp B/P (MAP) Pulse Ox O2 Delivery O2 Flow Rate FiO2 04/07/19 17:05 160 31 40 04/07/19 16:00 101.2 157/103 99 Mechanical Ventilator 04/05/19 10:05 4.0 Laboratory Tests Test 04/07/19 04:00 04/07/19 08:50 White Blood Count 11.1 K/UL (4.8-10.8) H Red Blood Count 2.50 M/UL (4.20-5.40) L Hemoglobin 7.6 G/DL (12.0-16.0) L Hematocrit 23.9 % (37.0-47.0) L Mean Corpuscular Volume 96 FL (80-99) # Mean Corpuscular Hemoglobin 30.2 PG (27.0-31.0) Mean Corpuscular Hemoglobin Concent 31.6 G/DL (32.0-36.0) L Red Cell Distribution Width 19.6 % (11.6-14.8) H Platelet Count 340 K/UL (150-450) Mean Platelet Volume 6.5 FL (6.5-10.1) Neutrophils (%) (Auto) % (45.0-75.0) Lymphocytes (%) (Auto) % (20.0-45.0) Monocytes (%) (Auto) % (1.0-10.0) Eosinophils (%) (Auto) % (0.0-3.0) Basophils (%) (Auto) % (0.0-2.0) Differential Total Cells Counted 100 Neutrophils % (Manual) 62 % (45-75) Lymphocytes % (Manual) 31 % (20-45) Monocytes % (Manual) 7 % (1-10) Eosinophils % (Manual) 0 % (0-3) Basophils % (Manual) 0 % (0-2) Band Neutrophils 0 % (0-8) Platelet Estimate Adequate Platelet Morphology Normal Hypochromasia 3+ Anisocytosis 2+ Sodium Level 148 MMOL/L (136-145) H Potassium Level 3.8 MMOL/L (3.5-5.1) Chloride Level 111 MMOL/L (98-107) H Carbon Dioxide Level 31 MMOL/L (21-32) Anion Gap 6 mmol/L (5-15) Blood Urea Nitrogen 21 mg/dL (7-18) H Creatinine 2.5 MG/DL (0.55-1.30) H Estimat Glomerular Filtration Rate 25.7 mL/min (>60) Glucose Level 164 MG/DL (74-106) H Uric Acid 5.3 MG/DL (2.6-7.2) Calcium Level 9.4 MG/DL (8.5-10.1) Phosphorus Level 5.6 MG/DL (2.5-4.9) H Magnesium Level 2.1 MG/DL (1.8-2.4) Total Bilirubin 0.6 MG/DL (0.2-1.0) Gamma Glutamyl Transpeptidase 526 U/L (5-85) H Aspartate Amino Transf (AST/SGOT) 41 U/L (15-37) H Alanine Aminotransferase (ALT/SGPT) 134 U/L (12-78) H Alkaline Phosphatase 386 U/L (46-116) H C-Reactive Protein, Quantitative 10.6 mg/dL (0.00-0.90) H Pro-B-Type Natriuretic Peptide 1171 pg/mL (0-125) H Total Protein 6.9 G/DL (6.4-8.2) Albumin 2.0 G/DL (3.4-5.0) L Globulin 4.9 g/dL Albumin/Globulin Ratio 0.4 (1.0-2.7) L Arterial Blood pH 7.477 (7.350-7.450) Arterial Blood Partial Pressure CO2 45.6 mmHg (35.0-45.0) H Arterial Blood Partial Pressure O2 84.3 mmHg (75.0-100.0) Arterial Blood HCO3 33.0 mmol/L (22.0-26.0) H Arterial Blood Oxygen Saturation 95.6 % (95-100) Arterial Blood Base Excess 8.5 (-2-2) H Amarjit Test Positive Intake and Output 04/06/19 04/07/19 18:59 06:59 Intake Total 643.02930 ml 670.58 ml Output Total 1200 ml 1265 ml Balance -556.85006 ml -594.42 ml Free Water 40 ml 90 ml IV Total 273.14700 ml 215.58 ml Tube Feeding 330 ml 365 ml Output Urine Total 1200 ml 1265 ml Objective General Appearance: WD/WN, moderate distress EENT: PERRL/EOMI, normal ENT inspection Neck: non-tender, normal alignment, normal inspection Cardiovascular: normal peripheral pulses, normal rate, regular rhythm, no gallop/murmur, no JVD Respiratory/Chest: Mech vent; respiratory distress, crackles/rales, rhonchi - bilaterally, expiratory wheezing Abdomen: normal bowel sounds, non tender, soft, no organomegaly, no mass Extremities: normal inspection Edema: trace edema 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 Abdominal pain. 2. Acute on chronic pancreatitis. 3. Diabetic ketoacidosis. 4. Hyperglycemia. 5. Renal failure. 6. Diabetes type 2. 7. Hypertension. 8. Ventral hernia. 9. ARDs/bilateral infiltrates/Respiratory failure 10. Elevated liver funct tests 11. Thrombocytopenia=improving TREATMENT: 1. Abdominal pain/acute pancreatitis. A Gastroenterology consultation has been obtained with Dr. Monty Jaimes. We will follow recommendations of Gastroenterology. The patient is currently NPO. 2. Diabetic ketoacidosis/hyperglycemia. An Endocrinology consultation= Dr. Joseph Saleem. The patient has been placed on an aspart insulin sliding scale and levemir. We will follow recommendations of Endocrinology. 3. Renal failure. A Nephrology consultation has been obtained with Dr. Lopez. Hemodialysis 04/02/19 4. Hypertension. Continue amlodipine as above. 5. Ventral hernia. 6. Mechanical vent per pulmonary=Balfe. Failed weaning today 7. ABX=meropenem and bactrim Marshal Gilbert MD Apr 07, 2019 17:31
--- NOTE | 2019-04-07 18:44 | Pulmonolgy Critical Care Note ---
Critical Care - Asmt/Plan Assessment/Plan: Pulmonary Critical Care Progress Note HPI Patient is a 43-year-old woman with past history of Diabetes, Hypertension, Chronic Obstructive Pulmonary Disease, admitted with Acute on Chronic Pancreatitis, elevated Liver Functions, Thrombocytopenia. Had c/o abdominal pain , nausea and vomiting, shortness of breath, coughing. She has a history of pancreatitis, noted to have features of Pancreatitis as well as azotemia, elevated liver function tests. She has history of multiple hernia operations, last in May 2018. Developed ARDS complication Pancreatitis. Patient noted to be in Diabetic Ketoacidosis on admission - remains on Insulin gtt, Metabolic acidosis, ARDS/fluid overload, requiring intubation and mechanical ventilation, Acute Renal Failure, s/p Hemodialysis previously Improving PEEP/FIO2, tolerated weaning today, failed cuff leak - now on Decadron Improving renal function and U/O Allergies: No Known Allergies Past Medical History: Diabetes, Hypertension, Chronic Obstructive Pulmonary Disease, Pancreatitis Physical Exam Vital Signs Noted General Appearance: interactive on the ventilator Head: normocephalic, atraumatic Eyes: bilateral eye normal inspection, bilateral PERRL ENT: moist mm, ETT Neck: no LN, no masses Respiratory: bilateral rhonchi, BS equal bilaterally Cardiovascular: HS1, HS2 normal, mild edema Gastrointestinal: normal bowel sounds, soft, non-distended, tenderness - epigastric, hernia - ventral Musculoskeletal: well perfused, moving all limbs Neurologic: no seizures, no focal signs Impression: Pneumonia vs ARDS Respiratory Failure with improved FIO2 and PEEP requirements, failed cuff leak Acute on Chronic Pancreatitis Hypocalcemia sp replacement Hypomagnesemia s/p replacement Reduced Albumin level, receiving NGT feeds Acute Renal Failure on HD PRN, Cr improving, adequate urine output Elevated Liver Function Tests Significant previous Alcohol abuse per her partner Thrombocytopenia GI bleed - on Protonix - s/p upper GI endoscopy Diabetic ketoacidosis improved Severe metabolic acidosis resolved H/o Hypertension H/o Chronic Obstructive Pulmonary Disease, H/o Multiple Previous Hernia Surgeries Plan ACVC, Vt 450,RR 24, adjust PEEP 5, adjust FIO2 - wean for [id number]% - currently 40%, wean ventilator as tolerated Decadron as failed cuff leak may need ENT consult CXR noted, persistent infiltrates CXR PRN Dialysis per renal Monitor labs, Repeat ABG PRN HHN Broad spectrum antibiotics/ID PRN Sedation - lighten as tolerated PPX: SCD/Protonix Insulin SQ Labs noted Echo: Preserved LV function EKG: Rate: tachycardiac Rhythm: NSR ST Segments: no acute changes ASA given to the pt in ED: No Chest X-Ray 03/26/2019: no consolidation, no effusion, no pneumothorax, no acute cardiopulmonary disease CXR: 03/27/2019: worsening bilateral infiltrates, low lung volumes, ETT low CT A/P: Lung bases: No mass. No consolidation. ABDOMEN: Liver: Unremarkable. Gallbladder and bile ducts: Unremarkable. Pancreas: Stranding around the pancreas. Multiple calcifications within the pancreas.. Spleen: Unremarkable. Adrenals: Unremarkable. Kidneys and ureters: No hydronephrosis. Stomach and bowel: No bowel obstruction. No bowel wall thickening. Fatty infiltration of the colonic wall. Mild hiatal hernia. PELVIS: Appendix: No evidence of appendicitis. Bladder: Unremarkable. Reproductive: Unremarkable. ABDOMEN and PELVIS: Intraperitoneal space: Unremarkable. Bones/joints: No acute fractures. Soft tissues: Fat containing periumbilical hernia. Vasculature: No abdominal aortic aneurysm. Lymph nodes: No enlarged lymph nodes. Critical Care - Objective Last 24 Hour Vital Signs Date Time Temp Pulse Resp B/P (MAP) Pulse Ox O2 Delivery O2 Flow Rate FiO2 04/07/19 17:26 100.9 04/07/19 17:05 160 31 40 04/07/19 16:00 130 04/07/19 16:00 40 04/07/19 16:00 101.2 148 24 157/103 99 Mechanical Ventilator 40 04/07/19 16:00 Mechanical Ventilator 04/07/19 15:04 105 26 40 04/07/19 15:00 103 25 132/88 100 Mechanical Ventilator 40 04/07/19 14:00 116 22 136/91 100 Mechanical Ventilator 40 04/07/19 13:04 123 30 40 04/07/19 13:00 115 24 136/96 99 Mechanical Ventilator 40 04/07/19 12:00 125 04/07/19 12:00 40 04/07/19 12:00 100.4 140 18 165/102 95 Mechanical Ventilator 40 04/07/19 12:00 Mechanical Ventilator 04/07/19 11:14 124 26 40 04/07/19 11:00 126 24 142/94 99 Mechanical Ventilator 40 04/07/19 10:00 148 21 168/114 95 Mechanical Ventilator 40 04/07/19 10:00 40 04/07/19 09:30 129 25 149/94 97 Mechanical Ventilator 40 04/07/19 09:07 144 31 40 04/07/19 09:00 129 23 142/93 95 Mechanical Ventilator 40 04/07/19 08:30 116 23 124/86 97 Mechanical Ventilator 40 04/07/19 08:30 98 04/07/19 08:00 40 04/07/19 08:00 98.3 117 23 146/98 97 Mechanical Ventilator 40 04/07/19 08:00 119 04/07/19 08:00 Mechanical Ventilator 04/07/19 07:00 134 26 151/97 96 Mechanical Ventilator 40 04/07/19 06:58 132 23 40 40 04/07/19 06:45 110 19 140/92 100 Mechanical Ventilator 40 04/07/19 06:30 111 26 04/07/19 06:30 112 22 138/93 99 Mechanical Ventilator 40 04/07/19 06:15 122 26 132/89 97 Mechanical Ventilator 40 04/07/19 06:00 127 19 160/97 100 Mechanical Ventilator 40 04/07/19 05:45 119 22 149/100 99 Mechanical Ventilator 40 04/07/19 05:30 110 25 126/85 97 Mechanical Ventilator 40 04/07/19 05:15 124 26 120/80 97 Mechanical Ventilator 40 04/07/19 05:11 117 27 40 04/07/19 05:00 21 Mechanical Ventilator 40 04/07/19 05:00 132 24 162/108 96 Mechanical Ventilator 40 04/07/19 04:45 139 23 184/123 95 Mechanical Ventilator 40 04/07/19 04:30 168 20 182/121 94 Mechanical Ventilator 40 04/07/19 04:00 98.9 103 23 147/97 98 Mechanical Ventilator 40 04/07/19 04:00 24 Mechanical Ventilator 40 04/07/19 04:00 40 04/07/19 04:00 Mechanical Ventilator 04/07/19 03:45 103 21 134/85 98 Mechanical Ventilator 40 04/07/19 03:30 102 04/07/19 03:30 99 22 121/91 98 Mechanical Ventilator 40 04/07/19 03:15 102 21 133/88 98 Mechanical Ventilator 40 04/07/19 03:02 97 26 40 04/07/19 03:00 21 Mechanical Ventilator 40 04/07/19 03:00 98 25 131/91 98 Mechanical Ventilator 40 04/07/19 02:45 105 21 138/90 97 Mechanical Ventilator 40 04/07/19 02:30 105 20 134/93 98 Mechanical Ventilator 40 04/07/19 02:15 107 20 134/102 98 Mechanical Ventilator 40 04/07/19 02:00 111 21 138/97 98 Mechanical Ventilator 40 04/07/19 02:00 20 Mechanical Ventilator 40 04/07/19 01:45 104 26 136/96 100 Mechanical Ventilator 40 04/07/19 01:39 23 Mechanical Ventilator 40 04/07/19 01:30 101 24 126/89 100 Mechanical Ventilator 40 04/07/19 01:15 99 25 138/94 99 Mechanical Ventilator 40 04/07/19 01:02 100 26 40 04/07/19 01:00 101 25 131/92 98 Mechanical Ventilator 40 04/07/19 01:00 25 Mechanical Ventilator 40 04/07/19 00:45 119 26 148/104 99 Mechanical Ventilator 40 04/07/19 00:30 104 24 134/93 99 Mechanical Ventilator 40 04/07/19 00:15 104 22 121/83 98 Mechanical Ventilator 40 04/07/19 00:00 98.9 107 21 129/86 98 Mechanical Ventilator 40 04/07/19 00:00 Mechanical Ventilator 04/07/19 00:00 40 04/07/19 00:00 27 Mechanical Ventilator 40 04/06/19 23:45 107 22 123/87 99 Mechanical Ventilator 40 04/06/19 23:15 104 24 127/86 99 Mechanical Ventilator 40 04/06/19 23:15 116 27 40 04/06/19 23:07 20 Mechanical Ventilator 40 04/06/19 23:04 130 04/06/19 23:00 20 Mechanical Ventilator 40 04/06/19 23:00 95 26 119/86 98 Mechanical Ventilator 40 04/06/19 22:00 18 Mechanical Ventilator 40 04/06/19 21:45 99 26 115/79 98 Mechanical Ventilator 40 04/06/19 21:30 105 23 116/73 97 Mechanical Ventilator 40 04/06/19 21:15 110 21 121/85 97 Mechanical Ventilator 40 04/06/19 21:00 106 28 40 04/06/19 21:00 26 Mechanical Ventilator 40 04/06/19 21:00 108 20 117/77 97 Mechanical Ventilator 40 04/06/19 20:45 113 23 123/78 97 Mechanical Ventilator 40 04/06/19 20:30 120 26 131/80 94 Mechanical Ventilator 40 04/06/19 20:29 18 Mechanical Ventilator 40 04/06/19 20:15 112 25 122/83 97 Mechanical Ventilator 40 04/06/19 20:00 Mechanical Ventilator 04/06/19 20:00 105 04/06/19 20:00 40 04/06/19 20:00 100.7 112 22 110/70 97 Mechanical Ventilator 40 04/06/19 19:45 107 22 99/60 97 Mechanical Ventilator 40 04/06/19 19:30 109 29 91/58 97 Mechanical Ventilator 40 04/06/19 19:15 112 23 98/63 97 Mechanical Ventilator 40 04/06/19 19:00 114 17 97/62 97 Mechanical Ventilator 40 04/06/19 19:00 110 33 40 04/06/19 19:00 26 Mechanical Ventilator 40 04/06/19 18:45 100.8 118 17 104/65 97 Mechanical Ventilator 40 Accucheck: 216 Critical Care - Subjective ROS Limited/Unobtainable: No FI02: 40 Vent Support Breath Rate: 26 Vent Support Mode: AC Vent Tidal Volume: 450 Sputum Amount: Small PEEP: 5.0 PIP: 33 Tube Feeding Amount: 45 I&O: Intake and Output 04/06/19 04/07/19 19:00 07:00 Intake Total 699.62030 ml 610.58 ml Output Total 1640 ml 815 ml Balance -940.82117 ml -204.42 ml Free Water 40 ml 90 ml IV Total 284.96580 ml 200.58 ml Tube Feeding 375 ml 320 ml Output Urine Total 1640 ml 815 ml ET-Tube: 7.5 ET Position: 23 Julio Rodrigez MD Apr 07, 2019 18:44
--- NOTE | 2019-04-07 19:00 | General Progress Note ---
Assessment/Plan Problem List: (1) DKA (diabetic ketoacidoses) ICD Codes: E11.10 - Type 2 diabetes mellitus with ketoacidosis without coma SNOMED: 229368407, [id number] Qualifiers: Qualified Codes: E13.10 - Other specified diabetes mellitus with ketoacidosis without coma (2) Diabetes mellitus out of control ICD Codes: E11.65 - Type 2 diabetes mellitus with hyperglycemia SNOMED: 52828583, 368671069 (3) Acute on chronic pancreatitis ICD Codes: K85.90 - Acute pancreatitis without necrosis or infection, unspecified; K86.1 - Other chronic pancreatitis SNOMED: 109299146, [id number] (4) Respiratory failure ICD Codes: J96.90 - Respiratory failure, unspecified, unspecified whether with hypoxia or hypercapnia SNOMED: 878774953 Qualifiers: Qualified Codes: J96.01 - Acute respiratory failure with hypoxia Status: unchanged Assessment/Plan: Levemir 6 units bid - w/ holding parameters continue NISS every 6 hours Subjective ROS Limited/Unobtainable: Yes Allergies: Coded Allergies: No Known Allergies (Unverified , 08/04/18) Subjective events noted intubated Item Value Date Time Bedside Blood Glucose 216 mg/dl H 04/07/19 1800 Bedside Blood Glucose 144 mg/dl H 04/07/19 1200 Bedside Blood Glucose 97 mg/dl 04/07/19 0848 Bedside Blood Glucose 177 mg/dl H 04/07/19 0600 Bedside Blood Glucose 142 mg/dl H 04/07/19 0000 Objective Last 24 Hour Vital Signs Date Time Temp Pulse Resp B/P (MAP) Pulse Ox O2 Delivery O2 Flow Rate FiO2 04/07/19 17:26 100.9 04/07/19 17:05 160 31 40 04/07/19 16:00 130 04/07/19 16:00 40 04/07/19 16:00 101.2 148 24 157/103 99 Mechanical Ventilator 40 04/07/19 16:00 Mechanical Ventilator 04/07/19 15:04 105 26 40 04/07/19 15:00 103 25 132/88 100 Mechanical Ventilator 40 04/07/19 14:00 116 22 136/91 100 Mechanical Ventilator 40 04/07/19 13:04 123 30 40 04/07/19 13:00 115 24 136/96 99 Mechanical Ventilator 40 04/07/19 12:00 125 04/07/19 12:00 40 04/07/19 12:00 100.4 140 18 165/102 95 Mechanical Ventilator 40 04/07/19 12:00 Mechanical Ventilator 04/07/19 11:14 124 26 40 04/07/19 11:00 126 24 142/94 99 Mechanical Ventilator 40 04/07/19 10:00 148 21 168/114 95 Mechanical Ventilator 40 04/07/19 10:00 40 04/07/19 09:30 129 25 149/94 97 Mechanical Ventilator 40 04/07/19 09:07 144 31 40 04/07/19 09:00 129 23 142/93 95 Mechanical Ventilator 40 04/07/19 08:30 116 23 124/86 97 Mechanical Ventilator 40 04/07/19 08:30 98 04/07/19 08:00 40 04/07/19 08:00 98.3 117 23 146/98 97 Mechanical Ventilator 40 04/07/19 08:00 119 04/07/19 08:00 Mechanical Ventilator 04/07/19 07:00 134 26 151/97 96 Mechanical Ventilator 40 04/07/19 06:58 132 23 40 40 04/07/19 06:45 110 19 140/92 100 Mechanical Ventilator 40 04/07/19 06:30 111 26 04/07/19 06:30 112 22 138/93 99 Mechanical Ventilator 40 04/07/19 06:15 122 26 132/89 97 Mechanical Ventilator 40 04/07/19 06:00 127 19 160/97 100 Mechanical Ventilator 40 04/07/19 05:45 119 22 149/100 99 Mechanical Ventilator 40 04/07/19 05:30 110 25 126/85 97 Mechanical Ventilator 40 04/07/19 05:15 124 26 120/80 97 Mechanical Ventilator 40 04/07/19 05:11 117 27 40 04/07/19 05:00 21 Mechanical Ventilator 40 04/07/19 05:00 132 24 162/108 96 Mechanical Ventilator 40 04/07/19 04:45 139 23 184/123 95 Mechanical Ventilator 40 04/07/19 04:30 168 20 182/121 94 Mechanical Ventilator 40 04/07/19 04:00 98.9 103 23 147/97 98 Mechanical Ventilator 40 04/07/19 04:00 24 Mechanical Ventilator 40 04/07/19 04:00 40 04/07/19 04:00 Mechanical Ventilator 04/07/19 03:45 103 21 134/85 98 Mechanical Ventilator 40 04/07/19 03:30 102 04/07/19 03:30 99 22 121/91 98 Mechanical Ventilator 40 04/07/19 03:15 102 21 133/88 98 Mechanical Ventilator 40 04/07/19 03:02 97 26 40 04/07/19 03:00 21 Mechanical Ventilator 40 04/07/19 03:00 98 25 131/91 98 Mechanical Ventilator 40 04/07/19 02:45 105 21 138/90 97 Mechanical Ventilator 40 04/07/19 02:30 105 20 134/93 98 Mechanical Ventilator 40 04/07/19 02:15 107 20 134/102 98 Mechanical Ventilator 40 04/07/19 02:00 111 21 138/97 98 Mechanical Ventilator 40 04/07/19 02:00 20 Mechanical Ventilator 40 04/07/19 01:45 104 26 136/96 100 Mechanical Ventilator 40 04/07/19 01:39 23 Mechanical Ventilator 40 04/07/19 01:30 101 24 126/89 100 Mechanical Ventilator 40 04/07/19 01:15 99 25 138/94 99 Mechanical Ventilator 40 04/07/19 01:02 100 26 40 04/07/19 01:00 101 25 131/92 98 Mechanical Ventilator 40 04/07/19 01:00 25 Mechanical Ventilator 40 04/07/19 00:45 119 26 148/104 99 Mechanical Ventilator 40 04/07/19 00:30 104 24 134/93 99 Mechanical Ventilator 40 04/07/19 00:15 104 22 121/83 98 Mechanical Ventilator 40 04/07/19 00:00 98.9 107 21 129/86 98 Mechanical Ventilator 40 04/07/19 00:00 Mechanical Ventilator 04/07/19 00:00 40 04/07/19 00:00 27 Mechanical Ventilator 40 04/06/19 23:45 107 22 123/87 99 Mechanical Ventilator 40 04/06/19 23:15 104 24 127/86 99 Mechanical Ventilator 40 04/06/19 23:15 116 27 40 04/06/19 23:07 20 Mechanical Ventilator 40 04/06/19 23:04 130 04/06/19 23:00 20 Mechanical Ventilator 40 04/06/19 23:00 95 26 119/86 98 Mechanical Ventilator 40 04/06/19 22:00 18 Mechanical Ventilator 40 04/06/19 21:45 99 26 115/79 98 Mechanical Ventilator 40 04/06/19 21:30 105 23 116/73 97 Mechanical Ventilator 40 04/06/19 21:15 110 21 121/85 97 Mechanical Ventilator 40 04/06/19 21:00 106 28 40 04/06/19 21:00 26 Mechanical Ventilator 40 04/06/19 21:00 108 20 117/77 97 Mechanical Ventilator 40 04/06/19 20:45 113 23 123/78 97 Mechanical Ventilator 40 04/06/19 20:30 120 26 131/80 94 Mechanical Ventilator 40 04/06/19 20:29 18 Mechanical Ventilator 40 04/06/19 20:15 112 25 122/83 97 Mechanical Ventilator 40 04/06/19 20:00 Mechanical Ventilator 04/06/19 20:00 105 04/06/19 20:00 40 04/06/19 20:00 100.7 112 22 110/70 97 Mechanical Ventilator 40 04/06/19 19:45 107 22 99/60 97 Mechanical Ventilator 40 04/06/19 19:30 109 29 91/58 97 Mechanical Ventilator 40 04/06/19 19:15 112 23 98/63 97 Mechanical Ventilator 40 04/06/19 19:00 114 17 97/62 97 Mechanical Ventilator 40 04/06/19 19:00 110 33 40 04/06/19 19:00 26 Mechanical Ventilator 40 Intake and Output 04/06/19 04/07/19 19:00 07:00 Intake Total 699.48095 ml 610.58 ml Output Total 1640 ml 815 ml Balance -940.70712 ml -204.42 ml Free Water 40 ml 90 ml IV Total 284.22007 ml 200.58 ml Tube Feeding 375 ml 320 ml Output Urine Total 1640 ml 815 ml Laboratory Tests 04/07/19 04:00: White Blood Count 11.1H, Red Blood Count 2.50L, Hemoglobin 7.6L, Hematocrit 23.9L, Mean Corpuscular Volume 96#, Mean Corpuscular Hemoglobin 30.2, Mean Corpuscular Hemoglobin Concent 31.6L, Red Cell Distribution Width 19.6H, Platelet Count 340, Mean Platelet Volume 6.5, Neutrophils (%) (Auto) , Lymphocytes (%) (Auto) , Monocytes (%) (Auto) , Eosinophils (%) (Auto) , Basophils (%) (Auto) , Differential Total Cells Counted 100, Neutrophils % ( Manual) 62, Lymphocytes % (Manual) 31, Monocytes % (Manual) 7, Eosinophils % ( Manual) 0, Basophils % (Manual) 0, Band Neutrophils 0, Platelet Estimate Adequate, Platelet Morphology Normal, Hypochromasia 3+, Anisocytosis 2+, Sodium Level 148H, Potassium Level 3.8, Chloride Level 111H, Carbon Dioxide Level 31, Anion Gap 6, Blood Urea Nitrogen 21H, Creatinine 2.5H, Estimat Glomerular Filtration Rate 25.7, Glucose Level 164H, Uric Acid 5.3, Calcium Level 9.4, Phosphorus Level 5.6H, Magnesium Level 2.1, Total Bilirubin 0.6, Gamma Glutamyl Transpeptidase 526H, Aspartate Amino Transf (AST/SGOT) 41H, Alanine Aminotransferase (ALT/SGPT) 134H, Alkaline Phosphatase 386H, C-Reactive Protein , Quantitative 10.6H, Pro-B-Type Natriuretic Peptide 1171H, Total Protein 6.9, Albumin 2.0L, Globulin 4.9, Albumin/Globulin Ratio 0.4L 04/07/19 08:50: Arterial Blood pH 7.477H, Arterial Blood Partial Pressure CO2 45.6H, Arterial Blood Partial Pressure O2 84.3, Arterial Blood HCO3 33.0H, Arterial Blood Oxygen Saturation 95.6, Arterial Blood Base Excess 8.5H, Amarjit Test Positive Height (Feet): 5 Height (Inches): 2.00 Weight (Pounds): 189 General Appearance: other - intubated EENT: other - ETT Cardiovascular: normal rate Respiratory/Chest: decreased breath sounds Abdomen: normal bowel sounds Objective Current Medications Medications (Trade) Dose Ordered Sig/Greta Route PRN Reason Start Time Stop Time Status Last Admin Dose Admin Acetaminophen (Tylenol) 650 mg Q4H PRN GT T>100.5 03/30/19 09:45 04/29/19 09:44 04/07/19 16:56 Chlorhexidine Gluconate (Hetal-Hex 2%) 1 applic DAILY@1999 TOPIC 03/27/19 20:00 04/26/19 19:59 04/06/19 20:24 Clonidine HCl (Catapres Tab) 0.1 mg Q8H PRN NG For High Blood Pressure 04/05/19 17:30 05/05/19 17:29 Dexamethasone Sodium Phosphate (Decadron 4mg/ml vial) 4 mg Q8HR IVP 04/07/19 14:00 04/10/19 13:59 04/07/19 14:03 Dextrose (Dextrose 50%) 25 ml Q30M PRN IV Hypoglycemia 03/28/19 11:30 04/27/19 11:29 Dextrose (Dextrose 50%) 50 ml Q30M PRN IV Hypoglycemia 03/28/19 11:30 04/27/19 11:29 Epoetin John (Epoetin John(ESRD on dialysis)) 10,000 unit THU- SUBQ 03/30/19 21:00 04/29/19 20:59 04/06/19 20:24 Fentanyl Citrate 1000 mcg/Sodium Chloride 100 ml @ 0 mls/hr Q24H IV 04/05/19 17:30 04/12/19 17:29 04/07/19 01:39 Guaifenesin (Robitussin) 200 mg Q4H PRN GT For Cough 03/30/19 09:45 04/26/19 11:14 Hydralazine HCl (Apresoline) 10 mg Q6H PRN IV For High Blood Pressure 04/05/19 17:30 05/05/19 17:29 04/05/19 18:09 Insulin Aspart (NovoLOG) Q6HR SUBQ 04/03/19 12:00 04/27/19 11:59 04/07/19 17:31 Insulin Detemir (Levemir) 6 units BID SUBQ 03/30/19 09:00 04/27/19 11:59 04/07/19 17:30 Lorazepam (Ativan 2mg/ml 1ml) 1 mg Q2H PRN IV For Anxiety 04/05/19 17:30 04/12/19 17:29 04/07/19 16:45 Meropenem 500 mg/ Sodium Chloride 55 ml @ 110 mls/hr Q24H IVPB 04/03/19 16:00 04/12/19 15:59 04/07/19 15:44 Morphine Sulfate (Morphine Sulfate) 2 mg Q2H PRN IVP Severe Pain (Pain Scale 7-10) 04/03/19 20:30 04/10/19 20:29 04/07/19 13:37 Nitroglycerin (Ntg) 0.4 mg Q5MIN X 3 DOSES PRN SL Prn Chest Pain 03/26/19 20:15 12/30/19 20:14 Ondansetron HCl (Zofran) 4 mg Q6H PRN IVP Nausea & Vomiting 03/26/19 20:00 04/25/19 19:59 03/30/19 06:20 Pantoprazole (Protonix) 40 mg EVERY 12 HOURS IVP 03/30/19 09:00 04/29/19 08:59 04/07/19 08:48 Polyethylene Glycol (Miralax) 17 gm DAILYPRN PRN ORAL Constipation 03/26/19 20:00 04/25/19 19:59 Thiamine HCl 100 mg/Sodium Chloride 56 ml @ 112 mls/hr DAILY IVPB 03/29/19 09:00 04/28/19 08:59 04/07/19 09:41 Trimethoprim/ Sulfamethoxazole (Bactrim Single Strength) 1 tab Q24H ORAL 04/06/19 18:00 04/13/19 17:59 04/07/19 17:30 Joseph Saleem MD Apr 07, 2019 19:00
--- NOTE | 2019-04-07 19:39 | Surgery Progress Note ---
Surgery Progress Note Subjective Procedure Performed right femoral central venous catheter insertion Additional Comments Patient seen and examined bedside. Family at bedside. Patient was weaning off sedation and attempted weaning from vent doing much better but still not safe for extubation. More agitated in the evening and she was seen early in the morning more comfortable Objective Last 24 Hour Vital Signs Date Time Temp Pulse Resp B/P (MAP) Pulse Ox O2 Delivery O2 Flow Rate FiO2 04/07/19 19:00 143 25 153/102 98 Mechanical Ventilator 40 04/07/19 18:00 122 26 143/83 99 Mechanical Ventilator 40 04/07/19 17:26 100.9 04/07/19 17:05 160 31 40 04/07/19 17:00 100.4 103 25 132/88 100 Mechanical Ventilator 40 04/07/19 16:00 130 04/07/19 16:00 40 04/07/19 16:00 101.2 148 24 157/103 99 Mechanical Ventilator 40 04/07/19 16:00 Mechanical Ventilator 04/07/19 15:04 105 26 40 04/07/19 15:00 103 25 132/88 100 Mechanical Ventilator 40 04/07/19 14:00 116 22 136/91 100 Mechanical Ventilator 40 04/07/19 13:04 123 30 40 04/07/19 13:00 115 24 136/96 99 Mechanical Ventilator 40 04/07/19 12:00 125 04/07/19 12:00 40 04/07/19 12:00 100.4 140 18 165/102 95 Mechanical Ventilator 40 04/07/19 12:00 Mechanical Ventilator 04/07/19 11:14 124 26 40 04/07/19 11:00 126 24 142/94 99 Mechanical Ventilator 40 04/07/19 10:00 148 21 168/114 95 Mechanical Ventilator 40 04/07/19 10:00 40 04/07/19 09:30 129 25 149/94 97 Mechanical Ventilator 40 04/07/19 09:07 144 31 40 04/07/19 09:00 129 23 142/93 95 Mechanical Ventilator 40 04/07/19 08:30 116 23 124/86 97 Mechanical Ventilator 40 04/07/19 08:30 98 04/07/19 08:00 40 04/07/19 08:00 98.3 117 23 146/98 97 Mechanical Ventilator 40 04/07/19 08:00 119 04/07/19 08:00 Mechanical Ventilator 04/07/19 07:00 134 26 151/97 96 Mechanical Ventilator 40 04/07/19 06:58 132 23 40 40 04/07/19 06:45 110 19 140/92 100 Mechanical Ventilator 40 04/07/19 06:30 111 26 04/07/19 06:30 112 22 138/93 99 Mechanical Ventilator 40 04/07/19 06:15 122 26 132/89 97 Mechanical Ventilator 40 04/07/19 06:00 127 19 160/97 100 Mechanical Ventilator 40 04/07/19 05:45 119 22 149/100 99 Mechanical Ventilator 40 04/07/19 05:30 110 25 126/85 97 Mechanical Ventilator 40 04/07/19 05:15 124 26 120/80 97 Mechanical Ventilator 40 04/07/19 05:11 117 27 40 04/07/19 05:00 21 Mechanical Ventilator 40 04/07/19 05:00 132 24 162/108 96 Mechanical Ventilator 40 04/07/19 04:45 139 23 184/123 95 Mechanical Ventilator 40 04/07/19 04:30 168 20 182/121 94 Mechanical Ventilator 40 04/07/19 04:00 98.9 103 23 147/97 98 Mechanical Ventilator 40 04/07/19 04:00 24 Mechanical Ventilator 40 04/07/19 04:00 40 04/07/19 04:00 Mechanical Ventilator 04/07/19 03:45 103 21 134/85 98 Mechanical Ventilator 40 04/07/19 03:30 102 04/07/19 03:30 99 22 121/91 98 Mechanical Ventilator 40 04/07/19 03:15 102 21 133/88 98 Mechanical Ventilator 40 04/07/19 03:02 97 26 40 04/07/19 03:00 21 Mechanical Ventilator 40 04/07/19 03:00 98 25 131/91 98 Mechanical Ventilator 40 04/07/19 02:45 105 21 138/90 97 Mechanical Ventilator 40 04/07/19 02:30 105 20 134/93 98 Mechanical Ventilator 40 04/07/19 02:15 107 20 134/102 98 Mechanical Ventilator 40 04/07/19 02:00 111 21 138/97 98 Mechanical Ventilator 40 04/07/19 02:00 20 Mechanical Ventilator 40 04/07/19 01:45 104 26 136/96 100 Mechanical Ventilator 40 04/07/19 01:39 23 Mechanical Ventilator 40 04/07/19 01:30 101 24 126/89 100 Mechanical Ventilator 40 04/07/19 01:15 99 25 138/94 99 Mechanical Ventilator 40 04/07/19 01:02 100 26 40 04/07/19 01:00 101 25 131/92 98 Mechanical Ventilator 40 04/07/19 01:00 25 Mechanical Ventilator 40 04/07/19 00:45 119 26 148/104 99 Mechanical Ventilator 40 04/07/19 00:30 104 24 134/93 99 Mechanical Ventilator 40 04/07/19 00:15 104 22 121/83 98 Mechanical Ventilator 40 04/07/19 00:00 98.9 107 21 129/86 98 Mechanical Ventilator 40 04/07/19 00:00 Mechanical Ventilator 04/07/19 00:00 40 04/07/19 00:00 27 Mechanical Ventilator 40 04/06/19 23:45 107 22 123/87 99 Mechanical Ventilator 40 04/06/19 23:15 104 24 127/86 99 Mechanical Ventilator 40 04/06/19 23:15 116 27 40 04/06/19 23:07 20 Mechanical Ventilator 40 04/06/19 23:04 130 04/06/19 23:00 20 Mechanical Ventilator 40 04/06/19 23:00 95 26 119/86 98 Mechanical Ventilator 40 04/06/19 22:00 18 Mechanical Ventilator 40 04/06/19 21:45 99 26 115/79 98 Mechanical Ventilator 40 04/06/19 21:30 105 23 116/73 97 Mechanical Ventilator 40 04/06/19 21:15 110 21 121/85 97 Mechanical Ventilator 40 04/06/19 21:00 106 28 40 04/06/19 21:00 26 Mechanical Ventilator 40 04/06/19 21:00 108 20 117/77 97 Mechanical Ventilator 40 04/06/19 20:45 113 23 123/78 97 Mechanical Ventilator 40 04/06/19 20:30 120 26 131/80 94 Mechanical Ventilator 40 04/06/19 20:29 18 Mechanical Ventilator 40 04/06/19 20:15 112 25 122/83 97 Mechanical Ventilator 40 04/06/19 20:00 Mechanical Ventilator 04/06/19 20:00 105 04/06/19 20:00 40 04/06/19 20:00 100.7 112 22 110/70 97 Mechanical Ventilator 40 04/06/19 19:45 107 22 99/60 97 Mechanical Ventilator 40 I&O Intake and Output 04/06/19 04/07/19 19:00 07:00 Intake Total 699.84581 ml 610.58 ml Output Total 1640 ml 815 ml Balance -940.04017 ml -204.42 ml Free Water 40 ml 90 ml IV Total 284.88110 ml 200.58 ml Tube Feeding 375 ml 320 ml Output Urine Total 1640 ml 815 ml Cardiovascular: RSR Respiratory: decreased breath sounds Abdomen: soft, present bowel sounds Extremities: no cyanosis, other Laboratory Tests Test 04/07/19 04:00 04/07/19 08:50 White Blood Count 11.1 K/UL (4.8-10.8) H Red Blood Count 2.50 M/UL (4.20-5.40) L Hemoglobin 7.6 G/DL (12.0-16.0) L Hematocrit 23.9 % (37.0-47.0) L Mean Corpuscular Volume 96 FL (80-99) # Mean Corpuscular Hemoglobin 30.2 PG (27.0-31.0) Mean Corpuscular Hemoglobin Concent 31.6 G/DL (32.0-36.0) L Red Cell Distribution Width 19.6 % (11.6-14.8) H Platelet Count 340 K/UL (150-450) Mean Platelet Volume 6.5 FL (6.5-10.1) Neutrophils (%) (Auto) % (45.0-75.0) Lymphocytes (%) (Auto) % (20.0-45.0) Monocytes (%) (Auto) % (1.0-10.0) Eosinophils (%) (Auto) % (0.0-3.0) Basophils (%) (Auto) % (0.0-2.0) Differential Total Cells Counted 100 Neutrophils % (Manual) 62 % (45-75) Lymphocytes % (Manual) 31 % (20-45) Monocytes % (Manual) 7 % (1-10) Eosinophils % (Manual) 0 % (0-3) Basophils % (Manual) 0 % (0-2) Band Neutrophils 0 % (0-8) Platelet Estimate Adequate Platelet Morphology Normal Hypochromasia 3+ Anisocytosis 2+ Sodium Level 148 MMOL/L (136-145) H Potassium Level 3.8 MMOL/L (3.5-5.1) Chloride Level 111 MMOL/L (98-107) H Carbon Dioxide Level 31 MMOL/L (21-32) Anion Gap 6 mmol/L (5-15) Blood Urea Nitrogen 21 mg/dL (7-18) H Creatinine 2.5 MG/DL (0.55-1.30) H Estimat Glomerular Filtration Rate 25.7 mL/min (>60) Glucose Level 164 MG/DL (74-106) H Uric Acid 5.3 MG/DL (2.6-7.2) Calcium Level 9.4 MG/DL (8.5-10.1) Phosphorus Level 5.6 MG/DL (2.5-4.9) H Magnesium Level 2.1 MG/DL (1.8-2.4) Total Bilirubin 0.6 MG/DL (0.2-1.0) Gamma Glutamyl Transpeptidase 526 U/L (5-85) H Aspartate Amino Transf (AST/SGOT) 41 U/L (15-37) H Alanine Aminotransferase (ALT/SGPT) 134 U/L (12-78) H Alkaline Phosphatase 386 U/L (46-116) H C-Reactive Protein, Quantitative 10.6 mg/dL (0.00-0.90) H Pro-B-Type Natriuretic Peptide 1171 pg/mL (0-125) H Total Protein 6.9 G/DL (6.4-8.2) Albumin 2.0 G/DL (3.4-5.0) L Globulin 4.9 g/dL Albumin/Globulin Ratio 0.4 (1.0-2.7) L Arterial Blood pH 7.477 (7.350-7.450) Arterial Blood Partial Pressure CO2 45.6 mmHg (35.0-45.0) H Arterial Blood Partial Pressure O2 84.3 mmHg (75.0-100.0) Arterial Blood HCO3 33.0 mmol/L (22.0-26.0) H Arterial Blood Oxygen Saturation 95.6 % (95-100) Arterial Blood Base Excess 8.5 (-2-2) H Amarjit Test Positive Plan Problems: (1) Abdominal pain Assessment & Plan: 43F presented with abd pain per report 01/04 generalized unable to obtain exam now that she is intubated in distress labs noted ventral incisional hernia reducible abd soft -iv fluids -okay to tube feeds advance to goal as tolerated trend labs -will order imaging when stabilized -HD as per renal -appreciate ICU care -fluid off with HD wean vent wean versed tube feeds to goal will follow with recs thank you Sedation holiday was had this morning followed by weaning trial but again patient was unable to tolerate. I spent a fair amount time of the bedside today attempting to wean and change vent settings for patient's comfort she is able to take spontaneous breaths but her tidal volumes are not good enough given her sedation. Will start weaning sedation again to attempt another weaning trial. Discussed with wood caulker at bedside. We have tried for a significant time to wean patient was on a daily basis and she still unable to be weaned. Unfortunately looks at this time this continues in this direction will potentially need a tracheostomy. (2) Ventral hernia (3) Acute on chronic pancreatitis Assessment & Plan: Evidence of acute on chronic pancreatitis. No pseudocyst. Hepatomegaly with severe steatosis. Mild hiatal hernia. abnormal lft's dehydrated dka renal insufficiency Continue diet as tolerated labs improving iv fluids tailored to uop appreciate endocrine input appreciate staffing consultant input needs urgent/emergency central venous catheter. Catheter stable unlikely source of leukocytosis see note HD as per renal vent support trend labs will follow with Lefty Montgomery Apr 07, 2019 19:39
[2019-04-07] MEDS: Dyna-Hex 2% Top Sol 2oz TOPIC SCH (20:01)
[2019-04-08] VITALS (41 sets, daily range): BP systolic 122–189; BP diastolic 53–115
[2019-04-08] MEDS: LORazepam Inj 2mg/ml 1ml IV PRN ×2 (03:26→15:23)
[2019-04-08] MEDS: NovoLOG Insulin Flexpen SUBQ SCH ×3 (05:25→18:38)
[2019-04-08] MEDS: Dexamethasone 4mg/ml vial IVP SCH ×3 (05:25→21:31)
[2019-04-08 07:24] LABS: HEMATOCRIT 25.6 % (37.0-47.0); HEMOGLOBIN 8.2 G/DL (12.0-16.0); MEAN CORPUSCULAR VOLUME 94 FL (80-99); PLATELET COUNT 441 K/UL (150-450); RED BLOOD COUNT 2.73 M/UL (4.20-5.40); RED CELL DISTRIBUTION WIDTH 19.4 % (11.6-14.8)
[2019-04-08 07:38] LABS: ALANINE AMINOTRANSFERASE 141 U/L (12-78); ALBUMIN 2.4 G/DL (3.4-5.0); ALBUMIN/GLOBULIN RATIO 0.4 (1.0-2.7); ALKALINE PHOSPHATASE 366 U/L (46-116); ANION GAP 6 mmol/L (5-15); ASPARTATE AMINO TRANSFERASE 41 U/L (15-37); BILIRUBIN,TOTAL 0.8 MG/DL (0.2-1.0); BLOOD UREA NITROGEN 20 mg/dL (7-18); CALCIUM 9.6 MG/DL (8.5-10.1); CARBON DIOXIDE 33 MMOL/L (21-32); CHLORIDE 109 MMOL/L (98-107); CREATININE 2.5 MG/DL (0.55-1.30); GAMMA GLUTAMYL TRANSPEPTIDASE 513 U/L (5-85); PHOSPHORUS 6.5 MG/DL (2.5-4.9); POTASSIUM 4.1 MMOL/L (3.5-5.1); SODIUM 148 MMOL/L (136-145)
[2019-04-08] MEDS: Morphine Sulfate 2mg/ml Inj(IV/IM USE ONLY) IVP PRN (08:06)
--- NOTE | 2019-04-08 09:11 | General Progress Note ---
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>>> on hold for possible extubation DM control repeat LFTS>>>improving fu labs stool ob positive x2 ppi s/p EGD colonoscopy if needed Subjective ROS Limited/Unobtainable: No Allergies: Coded Allergies: No Known Allergies (Unverified , 08/04/18) Objective Last 24 Hour Vital Signs Date Time Temp Pulse Resp B/P (MAP) Pulse Ox O2 Delivery O2 Flow Rate FiO2 04/08/19 08:00 160 04/08/19 08:00 Mechanical Ventilator 04/08/19 07:15 125 21 180/111 100 Mechanical Ventilator 40 04/08/19 07:00 90 25 143/104 100 Mechanical Ventilator 40 04/08/19 06:50 108 31 40 04/08/19 06:45 84 26 134/90 99 Mechanical Ventilator 40 04/08/19 06:30 81 26 04/08/19 06:30 81 26 142/91 99 Mechanical Ventilator 40 04/08/19 06:15 82 26 147/91 99 Mechanical Ventilator 40 04/08/19 06:00 80 26 150/98 99 Mechanical Ventilator 40 04/08/19 05:45 81 26 155/94 99 Mechanical Ventilator 40 04/08/19 05:41 Mechanical Ventilator 40 04/08/19 05:40 26 Mechanical Ventilator 40 04/08/19 05:37 90 20 160/105 100 Mechanical Ventilator 40 04/08/19 05:30 80 26 157/100 100 Mechanical Ventilator 40 04/08/19 05:15 82 26 40 04/08/19 05:00 79 26 151/94 100 Mechanical Ventilator 40 04/08/19 05:00 26 Non-Rebreather 40 04/08/19 04:45 79 26 145/95 100 Mechanical Ventilator 40 04/08/19 04:30 79 26 128/86 100 Mechanical Ventilator 40 04/08/19 04:00 40 04/08/19 04:00 Mechanical Ventilator 04/08/19 04:00 82 04/08/19 04:00 26 Mechanical Ventilator 40 04/08/19 04:00 98.6 82 26 135/88 100 Mechanical Ventilator 40 04/08/19 03:45 85 26 137/92 100 Mechanical Ventilator 40 04/08/19 03:30 96 24 156/106 100 Mechanical Ventilator 40 04/08/19 03:20 76 26 40 04/08/19 03:15 107 25 151/111 100 Mechanical Ventilator 40 04/08/19 03:00 110 24 154/100 100 Mechanical Ventilator 40 04/08/19 03:00 26 Mechanical Ventilator 40 04/08/19 02:45 103 25 146/99 100 Mechanical Ventilator 40 04/08/19 02:30 103 25 151/98 100 Mechanical Ventilator 40 04/08/19 02:15 99 24 148/96 100 Mechanical Ventilator 40 04/08/19 02:00 92 24 143/109 100 Mechanical Ventilator 40 04/08/19 02:00 26 Mechanical Ventilator 40 04/08/19 01:58 26 Mechanical Ventilator 40 04/08/19 01:00 76 27 40 04/08/19 01:00 83 25 137/89 100 Mechanical Ventilator 40 04/08/19 01:00 26 Mechanical Ventilator 40 04/08/19 00:45 85 26 129/89 100 Mechanical Ventilator 40 04/08/19 00:30 88 24 144/93 100 Mechanical Ventilator 40 04/08/19 00:15 93 24 143/94 100 Mechanical Ventilator 40 04/08/19 00:00 98.5 93 25 149/101 100 Mechanical Ventilator 40 04/08/19 00:00 26 Mechanical Ventilator 40 04/08/19 00:00 Mechanical Ventilator 04/07/19 23:45 98 25 148/91 98 Mechanical Ventilator 40 04/07/19 23:30 88 25 145/95 100 Mechanical Ventilator 40 04/07/19 23:15 93 25 148/93 100 Mechanical Ventilator 40 04/07/19 23:15 89 27 40 04/07/19 23:00 98 24 145/97 100 Mechanical Ventilator 40 04/07/19 23:00 26 Mechanical Ventilator 40 04/07/19 22:55 30 Mechanical Ventilator 40 04/07/19 22:45 101 24 151/97 100 Mechanical Ventilator 40 04/07/19 22:30 107 23 151/93 100 Mechanical Ventilator 40 04/07/19 22:15 116 26 156/95 100 Mechanical Ventilator 40 04/07/19 22:00 115 25 151/93 98 Mechanical Ventilator 40 04/07/19 22:00 26 Mechanical Ventilator 40 04/07/19 21:45 126 19 158/98 99 Mechanical Ventilator 40 04/07/19 21:30 114 23 149/91 99 Mechanical Ventilator 40 04/07/19 21:15 117 22 142/89 99 Mechanical Ventilator 40 04/07/19 21:00 35 Mechanical Ventilator 40 04/07/19 21:00 122 19 148/114 99 Mechanical Ventilator 40 04/07/19 21:00 88 26 40 04/07/19 20:47 Mechanical Ventilator 40 04/07/19 20:45 119 24 154/103 98 Mechanical Ventilator 40 04/07/19 20:30 123 22 150/96 98 Mechanical Ventilator 40 04/07/19 20:15 133 25 156/101 99 Mechanical Ventilator 40 04/07/19 20:01 36 Mechanical Ventilator 40 04/07/19 20:00 136 04/07/19 20:00 40 04/07/19 20:00 Mechanical Ventilator 04/07/19 20:00 100.0 132 25 159/103 99 Mechanical Ventilator 40 04/07/19 19:45 125 25 142/96 98 Mechanical Ventilator 40 04/07/19 19:30 128 26 153/100 98 Mechanical Ventilator 40 04/07/19 19:15 136 24 145/110 99 Mechanical Ventilator 40 04/07/19 19:00 143 25 153/102 98 Mechanical Ventilator 40 04/07/19 19:00 142 30 40 04/07/19 18:00 122 26 143/83 99 Mechanical Ventilator 40 04/07/19 17:26 100.9 04/07/19 17:05 160 31 40 04/07/19 17:00 100.4 103 25 132/88 100 Mechanical Ventilator 40 04/07/19 16:00 130 04/07/19 16:00 40 04/07/19 16:00 101.2 148 24 157/103 99 Mechanical Ventilator 40 04/07/19 16:00 Mechanical Ventilator 04/07/19 15:04 105 26 40 04/07/19 15:00 103 25 132/88 100 Mechanical Ventilator 40 04/07/19 14:00 116 22 136/91 100 Mechanical Ventilator 40 04/07/19 13:04 123 30 40 04/07/19 13:00 115 24 136/96 99 Mechanical Ventilator 40 04/07/19 12:00 125 04/07/19 12:00 40 04/07/19 12:00 100.4 140 18 165/102 95 Mechanical Ventilator 40 04/07/19 12:00 Mechanical Ventilator 04/07/19 11:14 124 26 40 04/07/19 11:00 126 24 142/94 99 Mechanical Ventilator 40 04/07/19 10:00 148 21 168/114 95 Mechanical Ventilator 40 04/07/19 10:00 40 04/07/19 09:30 129 25 149/94 97 Mechanical Ventilator 40 Intake and Output 04/07/19 04/08/19 19:00 07:00 Intake Total 291 ml 892.93 ml Output Total 1955 ml 1175 ml Balance -1664 ml -282.07 ml Free Water 30 ml IV Total 111 ml 322.93 ml Tube Feeding 180 ml 540 ml Output Urine Total 1955 ml 1175 ml # Bowel Movements 1 1 Laboratory Tests 04/08/19 04:30: White Blood Count 15.0H, Red Blood Count 2.73L, Hemoglobin 8.2L, Hematocrit 25.6L, Mean Corpuscular Volume 94, Mean Corpuscular Hemoglobin 30.0, Mean Corpuscular Hemoglobin Concent 31.9L, Red Cell Distribution Width 19.4H, Platelet Count 441, Mean Platelet Volume 6.2L, Neutrophils (%) (Auto) , Lymphocytes (%) (Auto) , Monocytes (%) (Auto) , Eosinophils (%) (Auto) , Basophils (%) (Auto) , Neutrophils % (Manual) [Pending], Lymphocytes % (Manual) [Pending], Platelet Estimate [Pending], Platelet Morphology [Pending], Sodium Level 148H, Potassium Level 4.1, Chloride Level 109H, Carbon Dioxide Level 33H, Anion Gap 6, Blood Urea Nitrogen 20H, Creatinine 2.5H, Estimat Glomerular Filtration Rate 25.7, Glucose Level 169H, Uric Acid 6.9, Calcium Level 9.6, Phosphorus Level 6.5H, Magnesium Level 2.0, Total Bilirubin 0.8, Gamma Glutamyl Transpeptidase 513H, Aspartate Amino Transf (AST/SGOT) 41H, Alanine Aminotransferase (ALT/SGPT) 141H, Alkaline Phosphatase 366H, C-Reactive Protein , Quantitative 12.5H, Pro-B-Type Natriuretic Peptide 3269H, Total Protein 8.0, Albumin 2.4L, Globulin 5.6, Albumin/Globulin Ratio 0.4L Height (Feet): 5 Height (Inches): 2.00 Weight (Pounds): 187 General Appearance: no apparent distress EENT: normal ENT inspection Neck: supple Cardiovascular: normal rate Respiratory/Chest: decreased breath sounds Abdomen: normal bowel sounds, non tender, soft Monty Jaimes MD Apr 08, 2019 09:11
[2019-04-08] MEDS: Pantoprazole Inj IVP SCH ×2 (09:54→20:31)
[2019-04-08] MEDS: Thiamine HCl 100 MG in NS 55 ML IVPB SCH (09:54)
--- NOTE | 2019-04-08 09:54 | Diagnostic Imaging Report ---
Indication: Cough, dyspnea Technique: One view of the chest Comparison: 04/03/2019 Findings: Stable satisfactory tube and line positions. Bilateral interstitial and airspace edema appears somewhat improved since the prior exam, with a decreased air space component overall. Nonetheless, considerable disease persists. There may be a small pleural effusion on the left. The heart is borderline enlarged Impression: Improving but persistent and still extensive bilateral interstitial and airspace edema, over 5 days
[2019-04-08] MEDS: Levemir Flexpen SUBQ SCH ×2 (09:59→18:38)
[2019-04-08] MEDS: Acetaminophen 650mg/20.3ml GT PRN (10:13)
[2019-04-08] MEDS ORDERED: Hydromorphone 0.5mg/0.5ml inj IVP PRN (10:45)
[2019-04-08] MEDS ORDERED: HYDROmorphone 1mg/ml Carpuject IVP PRN (10:45)
--- NOTE | 2019-04-08 14:14 | Nephrology Progress Note ---
Assessment/Plan Problem List: (1) Acute renal failure (ARF) (2) Respiratory failure (3) DKA (diabetic ketoacidoses) (4) LFT elevation (5) Electrolyte imbalance Assessment: Low Mag and Low Ca (6) Thrombocytopathia Assessment Acute respiratory failure Acute renal failure high LFTs, thrombocytopenia ? HUS ? 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 Ca and Mag IV Vit K Vit D Echo Hyperkinetic wall motion. Left ventricular ejection fraction estimated to be 55-60 %. Moderate left ventricular hypertrophy by 2D. Abd CT: Evidence of acute on chronic pancreatitis. No pseudocyst. Hepatomegaly with severe steatosis. Subjective ROS Limited/Unobtainable: Yes Objective Objective Last 24 Hour Vital Signs Date Time Temp Pulse Resp B/P (MAP) Pulse Ox O2 Delivery O2 Flow Rate FiO2 04/08/19 10:15 Venturi Mask 10.0 40 04/08/19 10:15 40 04/08/19 09:01 98 04/08/19 09:01 122 22 40 04/08/19 08:00 40 04/08/19 08:00 160 04/08/19 08:00 Mechanical Ventilator 04/08/19 07:15 125 21 180/111 100 Mechanical Ventilator 40 04/08/19 07:00 90 25 143/104 100 Mechanical Ventilator 40 04/08/19 06:50 108 31 40 04/08/19 06:45 84 26 134/90 99 Mechanical Ventilator 40 04/08/19 06:30 81 26 04/08/19 06:30 81 26 142/91 99 Mechanical Ventilator 40 04/08/19 06:15 82 26 147/91 99 Mechanical Ventilator 40 04/08/19 06:00 80 26 150/98 99 Mechanical Ventilator 40 04/08/19 05:45 81 26 155/94 99 Mechanical Ventilator 40 04/08/19 05:41 Mechanical Ventilator 40 04/08/19 05:40 26 Mechanical Ventilator 40 04/08/19 05:37 90 20 160/105 100 Mechanical Ventilator 40 04/08/19 05:30 80 26 157/100 100 Mechanical Ventilator 40 04/08/19 05:15 82 26 40 04/08/19 05:00 79 26 151/94 100 Mechanical Ventilator 40 04/08/19 05:00 26 Non-Rebreather 40 04/08/19 04:45 79 26 145/95 100 Mechanical Ventilator 40 04/08/19 04:30 79 26 128/86 100 Mechanical Ventilator 40 04/08/19 04:00 40 04/08/19 04:00 Mechanical Ventilator 04/08/19 04:00 82 04/08/19 04:00 26 Mechanical Ventilator 40 04/08/19 04:00 98.6 82 26 135/88 100 Mechanical Ventilator 40 04/08/19 03:45 85 26 137/92 100 Mechanical Ventilator 40 04/08/19 03:30 96 24 156/106 100 Mechanical Ventilator 40 04/08/19 03:20 76 26 40 04/08/19 03:15 107 25 151/111 100 Mechanical Ventilator 40 04/08/19 03:00 110 24 154/100 100 Mechanical Ventilator 40 04/08/19 03:00 26 Mechanical Ventilator 40 04/08/19 02:45 103 25 146/99 100 Mechanical Ventilator 40 04/08/19 02:30 103 25 151/98 100 Mechanical Ventilator 40 04/08/19 02:15 99 24 148/96 100 Mechanical Ventilator 40 04/08/19 02:00 92 24 143/109 100 Mechanical Ventilator 40 04/08/19 02:00 26 Mechanical Ventilator 40 04/08/19 01:58 26 Mechanical Ventilator 40 04/08/19 01:00 76 27 40 04/08/19 01:00 83 25 137/89 100 Mechanical Ventilator 40 04/08/19 01:00 26 Mechanical Ventilator 40 04/08/19 00:45 85 26 129/89 100 Mechanical Ventilator 40 04/08/19 00:30 88 24 144/93 100 Mechanical Ventilator 40 04/08/19 00:15 93 24 143/94 100 Mechanical Ventilator 40 04/08/19 00:00 98.5 93 25 149/101 100 Mechanical Ventilator 40 04/08/19 00:00 26 Mechanical Ventilator 40 04/08/19 00:00 Mechanical Ventilator 04/07/19 23:45 98 25 148/91 98 Mechanical Ventilator 40 04/07/19 23:30 88 25 145/95 100 Mechanical Ventilator 40 04/07/19 23:15 93 25 148/93 100 Mechanical Ventilator 40 04/07/19 23:15 89 27 40 04/07/19 23:00 98 24 145/97 100 Mechanical Ventilator 40 04/07/19 23:00 26 Mechanical Ventilator 40 04/07/19 22:55 30 Mechanical Ventilator 40 04/07/19 22:45 101 24 151/97 100 Mechanical Ventilator 40 04/07/19 22:30 107 23 151/93 100 Mechanical Ventilator 40 04/07/19 22:15 116 26 156/95 100 Mechanical Ventilator 40 04/07/19 22:00 115 25 151/93 98 Mechanical Ventilator 40 04/07/19 22:00 26 Mechanical Ventilator 40 04/07/19 21:45 126 19 158/98 99 Mechanical Ventilator 40 04/07/19 21:30 114 23 149/91 99 Mechanical Ventilator 40 04/07/19 21:15 117 22 142/89 99 Mechanical Ventilator 40 04/07/19 21:00 35 Mechanical Ventilator 40 04/07/19 21:00 122 19 148/114 99 Mechanical Ventilator 40 04/07/19 21:00 88 26 40 04/07/19 20:47 Mechanical Ventilator 40 04/07/19 20:45 119 24 154/103 98 Mechanical Ventilator 40 04/07/19 20:30 123 22 150/96 98 Mechanical Ventilator 40 04/07/19 20:15 133 25 156/101 99 Mechanical Ventilator 40 04/07/19 20:01 36 Mechanical Ventilator 40 04/07/19 20:00 136 04/07/19 20:00 40 04/07/19 20:00 Mechanical Ventilator 04/07/19 20:00 100.0 132 25 159/103 99 Mechanical Ventilator 40 04/07/19 19:45 125 25 142/96 98 Mechanical Ventilator 40 04/07/19 19:30 128 26 153/100 98 Mechanical Ventilator 40 04/07/19 19:15 136 24 145/110 99 Mechanical Ventilator 40 04/07/19 19:00 143 25 153/102 98 Mechanical Ventilator 40 04/07/19 19:00 142 30 40 04/07/19 18:00 122 26 143/83 99 Mechanical Ventilator 40 04/07/19 17:26 100.9 04/07/19 17:05 160 31 40 04/07/19 17:00 100.4 103 25 132/88 100 Mechanical Ventilator 40 04/07/19 16:00 130 04/07/19 16:00 40 04/07/19 16:00 101.2 148 24 157/103 99 Mechanical Ventilator 40 04/07/19 16:00 Mechanical Ventilator 04/07/19 15:04 105 26 40 04/07/19 15:00 103 25 132/88 100 Mechanical Ventilator 40 Intake and Output 04/07/19 04/08/19 18:59 06:59 Intake Total 246 ml 892.93 ml Output Total 1830 ml 1250 ml Balance -1584 ml -357.07 ml Free Water 30 ml IV Total 111 ml 322.93 ml Tube Feeding 135 ml 540 ml Output Urine Total 1830 ml 1250 ml # Bowel Movements 1 1 Laboratory Tests 04/08/19 04:30: White Blood Count 15.0H, Red Blood Count 2.73L, Hemoglobin 8.2L, Hematocrit 25.6L, Mean Corpuscular Volume 94, Mean Corpuscular Hemoglobin 30.0, Mean Corpuscular Hemoglobin Concent 31.9L, Red Cell Distribution Width 19.4H, Platelet Count 441, Mean Platelet Volume 6.2L, Neutrophils (%) (Auto) , Lymphocytes (%) (Auto) , Monocytes (%) (Auto) , Eosinophils (%) (Auto) , Basophils (%) (Auto) , Differential Total Cells Counted 100, Neutrophils % ( Manual) 86H, Lymphocytes % (Manual) 7L, Monocytes % (Manual) 6, Eosinophils % ( Manual) 0, Basophils % (Manual) 1, Band Neutrophils 0, Nucleated Red Blood Cells 2, Platelet Estimate Adequate, Platelet Morphology Normal, Anisocytosis 1+ , Sodium Level 148H, Potassium Level 4.1, Chloride Level 109H, Carbon Dioxide Level 33H, Anion Gap 6, Blood Urea Nitrogen 20H, Creatinine 2.5H, Estimat Glomerular Filtration Rate 25.7, Glucose Level 169H, Uric Acid 6.9, Calcium Level 9.6, Phosphorus Level 6.5H, Magnesium Level 2.0, Total Bilirubin 0.8, Gamma Glutamyl Transpeptidase 513H, Aspartate Amino Transf (AST/SGOT) 41H, Alanine Aminotransferase (ALT/SGPT) 141H, Alkaline Phosphatase 366H, C-Reactive Protein, Quantitative 12.5H, Pro-B-Type Natriuretic Peptide 3269H, Total Protein 8.0, Albumin 2.4L, Globulin 5.6, Albumin/Globulin Ratio 0.4L 04/08/19 09:19: Arterial Blood pH 7.463H, Arterial Blood Partial Pressure CO2 42.6, Arterial Blood Partial Pressure O2 75.5, Arterial Blood HCO3 29.8H, Arterial Blood Oxygen Saturation 94.4L, Arterial Blood Base Excess 5.5H, Amarjit Test Positive Height (Feet): 5 Height (Inches): 2.00 Weight (Pounds): 187 General Appearance: no apparent distress EENT: other - vented Cardiovascular: tachycardia Respiratory/Chest: decreased breath sounds Objective no change Amrit Lopez MD Apr 08, 2019 14:14
--- NOTE | 2019-04-08 14:24 | Internal Med Progress Note ---
Subjective Physician Name Shree Mcintyre Attending Physician Shree Mcintyre MD Current Medications Medications (Trade) Dose Ordered Sig/Greta Route PRN Reason Start Time Stop Time Status Last Admin Dose Admin Acetaminophen (Tylenol) 650 mg Q4H PRN GT T>100.5 03/30/19 09:45 04/29/19 09:44 04/07/19 16:56 Chlorhexidine Gluconate (Hetal-Hex 2%) 1 applic DAILY@2000 TOPIC 03/27/19 20:00 04/26/19 19:59 04/07/19 20:01 Clonidine HCl (Catapres Tab) 0.1 mg Q8H PRN NG For High Blood Pressure 04/05/19 17:30 05/05/19 17:29 Dexamethasone Sodium Phosphate (Decadron 4mg/ml vial) 4 mg Q8HR IVP 04/07/19 14:00 04/10/19 13:59 04/08/19 05:25 Dextrose (Dextrose 50%) 25 ml Q30M PRN IV Hypoglycemia 03/28/19 11:30 04/27/19 11:29 Dextrose (Dextrose 50%) 50 ml Q30M PRN IV Hypoglycemia 03/28/19 11:30 04/27/19 11:29 Epoetin John (Epoetin John(ESRD on dialysis)) 10,000 unit THU-THU-THU SUBQ 03/30/19 21:00 04/29/19 20:59 04/06/19 20:24 Fentanyl Citrate 1000 mcg/Sodium Chloride 100 ml @ 0 mls/hr Q24H IV 04/05/19 17:30 04/12/19 17:29 04/08/19 05:41 Guaifenesin (Robitussin) 200 mg Q4H PRN GT For Cough 03/30/19 09:45 04/26/19 11:14 Hydralazine HCl (Apresoline) 10 mg Q6H PRN IV For High Blood Pressure 04/05/19 17:30 05/05/19 17:29 04/05/19 18:09 Hydromorphone HCl (Dilaudid) 0.5 mg Q3H PRN IVP Pain Scale (3-5) 04/08/19 10:45 04/15/19 10:44 Hydromorphone HCl (Dilaudid) 1 mg Q3H PRN IVP Severe Pain (Pain Scale 7-10) 04/08/19 10:45 04/15/19 10:44 04/08/19 10:53 Insulin Aspart (NovoLOG) Q6HR SUBQ 04/03/19 12:00 04/27/19 11:59 04/08/19 05:25 Insulin Detemir (Levemir) 6 units BID SUBQ 03/30/19 09:00 04/27/19 11:59 04/08/19 09:59 Lorazepam (Ativan 2mg/ml 1ml) 1 mg Q2H PRN IV For Anxiety 04/05/19 17:30 04/12/19 17:29 04/08/19 03:26 Meropenem 500 mg/ Sodium Chloride 55 ml @ 110 mls/hr Q24H IVPB 04/03/19 16:00 04/12/19 15:59 04/07/19 15:44 Nitroglycerin (Ntg) 0.4 mg Q5MIN X 3 DOSES PRN SL Prn Chest Pain 03/26/19 20:15 04/25/19 20:14 Ondansetron HCl (Zofran) 4 mg Q6H PRN IVP Nausea & Vomiting 03/26/19 20:00 04/25/19 19:59 03/30/19 06:20 Pantoprazole (Protonix) 40 mg EVERY 12 HOURS IVP 03/30/19 09:00 04/29/19 08:59 04/08/19 09:54 Polyethylene Glycol (Miralax) 17 gm DAILYPRN PRN ORAL Constipation 03/26/19 20:00 04/25/19 19:59 Thiamine HCl 100 mg/Sodium Chloride 56 ml @ 112 mls/hr DAILY IVPB 03/29/19 09:00 04/28/19 08:59 04/08/19 09:54 Trimethoprim/ Sulfamethoxazole (Bactrim Single Strength) 1 tab Q24H ORAL 04/06/19 18:00 04/13/19 17:59 04/07/19 17:30 Allergies: Coded Allergies: No Known Allergies (Unverified , 08/04/18) Subjective in ICU, awake, alert, responsive, Extubated now. Objective Last Vital Signs Date Time Temp Pulse Resp B/P (MAP) Pulse Ox O2 Delivery O2 Flow Rate FiO2 04/08/19 10:15 Venturi Mask 10.0 40 04/08/19 09:01 98 04/08/19 09:01 122 22 04/08/19 07:15 180/111 04/08/19 04:00 98.6 Laboratory Tests Test 04/08/19 04:30 04/08/19 09:19 White Blood Count 15.0 K/UL (4.8-10.8) H Red Blood Count 2.73 M/UL (4.20-5.40) L Hemoglobin 8.2 G/DL (12.0-16.0) L Hematocrit 25.6 % (37.0-47.0) L Mean Corpuscular Volume 94 FL (80-99) Mean Corpuscular Hemoglobin 30.0 PG (27.0-31.0) Mean Corpuscular Hemoglobin Concent 31.9 G/DL (32.0-36.0) L Red Cell Distribution Width 19.4 % (11.6-14.8) H Platelet Count 441 K/UL (150-450) Mean Platelet Volume 6.2 FL (6.5-10.1) L Neutrophils (%) (Auto) % (45.0-75.0) Lymphocytes (%) (Auto) % (20.0-45.0) Monocytes (%) (Auto) % (1.0-10.0) Eosinophils (%) (Auto) % (0.0-3.0) Basophils (%) (Auto) % (0.0-2.0) Differential Total Cells Counted 100 Neutrophils % (Manual) 86 % (45-75) H Lymphocytes % (Manual) 7 % (20-45) L Monocytes % (Manual) 6 % (1-10) Eosinophils % (Manual) 0 % (0-3) Basophils % (Manual) 1 % (0-2) Band Neutrophils 0 % (0-8) Nucleated Red Blood Cells 2 /100 WBC Platelet Estimate Adequate Platelet Morphology Normal Anisocytosis 1+ Sodium Level 148 MMOL/L (136-145) H Potassium Level 4.1 MMOL/L (3.5-5.1) Chloride Level 109 MMOL/L (98-107) H Carbon Dioxide Level 33 MMOL/L (21-32) H Anion Gap 6 mmol/L (5-15) Blood Urea Nitrogen 20 mg/dL (7-18) H Creatinine 2.5 MG/DL (0.55-1.30) H Estimat Glomerular Filtration Rate 25.7 mL/min (>60) Glucose Level 169 MG/DL (74-106) H Uric Acid 6.9 MG/DL (2.6-7.2) Calcium Level 9.6 MG/DL (8.5-10.1) Phosphorus Level 6.5 MG/DL (2.5-4.9) H Magnesium Level 2.0 MG/DL (1.8-2.4) Total Bilirubin 0.8 MG/DL (0.2-1.0) Gamma Glutamyl Transpeptidase 513 U/L (5-85) H Aspartate Amino Transf (AST/SGOT) 41 U/L (15-37) H Alanine Aminotransferase (ALT/SGPT) 141 U/L (12-78) H Alkaline Phosphatase 366 U/L (46-116) H C-Reactive Protein, Quantitative 12.5 mg/dL (0.00-0.90) H Pro-B-Type Natriuretic Peptide 3269 pg/mL (0-125) H Total Protein 8.0 G/DL (6.4-8.2) Albumin 2.4 G/DL (3.4-5.0) L Globulin 5.6 g/dL Albumin/Globulin Ratio 0.4 (1.0-2.7) L Arterial Blood pH 7.463 (7.350-7.450) Arterial Blood Partial Pressure CO2 42.6 mmHg (35.0-45.0) Arterial Blood Partial Pressure O2 75.5 mmHg (75.0-100.0) Arterial Blood HCO3 29.8 mmol/L (22.0-26.0) H Arterial Blood Oxygen Saturation 94.4 % (95-100) L Arterial Blood Base Excess 5.5 (-2-2) H Amarjit Test Positive Intake and Output 04/07/19 04/08/19 19:00 07:00 Intake Total 291 ml 892.93 ml Output Total 1955 ml 1175 ml Balance -1664 ml -282.07 ml Free Water 30 ml IV Total 111 ml 322.93 ml Tube Feeding 180 ml 540 ml Output Urine Total 1955 ml 1175 ml # Bowel Movements 1 1 Objective General: awake, alert, responsive. HEENT: NCAT, sclera anicteric, PERRL, EOMI.. Neck: Supple, Right IJ Dialysis cath. Lungs: Mechanical breath sound, decrease air at bases, no Wheeze or Rales. Heart: Regular rate and rhythm, normal S1/S2, no murmurs. Abdomen: soft, nontender, nondistended. Normoactive bowel sounds, Morbid obesity. : Hoffmann cath Extremities: No Cyanosis , clubbing or edema. Neuro: Able to move all extremities, CN 2-12 intact. Skin: warm, no rash. Assessment/Plan Assessment/Plan 1. Abdominal pain. 2. Acute on chronic pancreatitis. 3. Diabetic ketoacidosis. 4. Hyperglycemia. 5. Acute Renal failure. 6. Diabetes type 2. 7. Hypertension. 8. Ventral hernia. 9. ARDs/bilateral infiltrates/Acute Respiratory failure --> Extubated 10. Elevated liver funct tests 11. Thrombocytopenia=improving TREATMENT: 1. Abdominal pain/acute pancreatitis. A Gastroenterology consultation has been obtained with Dr. Monty Jaimes. We will follow recommendations of Gastroenterology. 2. Diabetic ketoacidosis/hyperglycemia. An Endocrinology consultation= Dr. Joseph Saleem. The patient has been placed on an aspart insulin sliding scale and levemir. We will follow recommendations of Endocrinology. 3. Renal failure. A Nephrology consultation has been obtained with Dr. Lopez. Hemodialysis 03/31/19 4. Hypertension. Continue amlodipine as above. 5. Ventral hernia. 6. Mechanical vent per pulmonary=Balfe 7. ABX=Meropenem and Bactrim Shree Mcintyre MD Apr 08, 2019 14:24
--- NOTE | 2019-04-08 14:56 | Surgery Progress Note ---
Surgery Progress Note Subjective Procedure Performed right femoral central venous catheter insertion Symptoms: improved Additional Comments extubated comfortable much improved Objective Last 24 Hour Vital Signs Date Time Temp Pulse Resp B/P (MAP) Pulse Ox O2 Delivery O2 Flow Rate FiO2 04/08/19 10:15 Venturi Mask 10.0 40 04/08/19 10:15 40 04/08/19 09:01 98 04/08/19 09:01 122 22 40 04/08/19 08:00 40 04/08/19 08:00 160 04/08/19 08:00 Mechanical Ventilator 04/08/19 07:15 125 21 180/111 100 Mechanical Ventilator 40 04/08/19 07:00 90 25 143/104 100 Mechanical Ventilator 40 04/08/19 06:50 108 31 40 04/08/19 06:45 84 26 134/90 99 Mechanical Ventilator 40 04/08/19 06:30 81 26 04/08/19 06:30 81 26 142/91 99 Mechanical Ventilator 40 04/08/19 06:15 82 26 147/91 99 Mechanical Ventilator 40 04/08/19 06:00 80 26 150/98 99 Mechanical Ventilator 40 04/08/19 05:45 81 26 155/94 99 Mechanical Ventilator 40 04/08/19 05:41 Mechanical Ventilator 40 04/08/19 05:40 26 Mechanical Ventilator 40 04/08/19 05:37 90 20 160/105 100 Mechanical Ventilator 40 04/08/19 05:30 80 26 157/100 100 Mechanical Ventilator 40 04/08/19 05:15 82 26 40 04/08/19 05:00 79 26 151/94 100 Mechanical Ventilator 40 04/08/19 05:00 26 Non-Rebreather 40 04/08/19 04:45 79 26 145/95 100 Mechanical Ventilator 40 04/08/19 04:30 79 26 128/86 100 Mechanical Ventilator 40 04/08/19 04:00 40 04/08/19 04:00 Mechanical Ventilator 04/08/19 04:00 82 04/08/19 04:00 26 Mechanical Ventilator 40 04/08/19 04:00 98.6 82 26 135/88 100 Mechanical Ventilator 40 04/08/19 03:45 85 26 137/92 100 Mechanical Ventilator 40 04/08/19 03:30 96 24 156/106 100 Mechanical Ventilator 40 04/08/19 03:20 76 26 40 04/08/19 03:15 107 25 151/111 100 Mechanical Ventilator 40 04/08/19 03:00 110 24 154/100 100 Mechanical Ventilator 40 04/08/19 03:00 26 Mechanical Ventilator 40 04/08/19 02:45 103 25 146/99 100 Mechanical Ventilator 40 04/08/19 02:30 103 25 151/98 100 Mechanical Ventilator 40 04/08/19 02:15 99 24 148/96 100 Mechanical Ventilator 40 04/08/19 02:00 92 24 143/109 100 Mechanical Ventilator 40 04/08/19 02:00 26 Mechanical Ventilator 40 04/08/19 01:58 26 Mechanical Ventilator 40 04/08/19 01:00 76 27 40 04/08/19 01:00 83 25 137/89 100 Mechanical Ventilator 40 04/08/19 01:00 26 Mechanical Ventilator 40 04/08/19 00:45 85 26 129/89 100 Mechanical Ventilator 40 04/08/19 00:30 88 24 144/93 100 Mechanical Ventilator 40 04/08/19 00:15 93 24 143/94 100 Mechanical Ventilator 40 04/08/19 00:00 98.5 93 25 149/101 100 Mechanical Ventilator 40 04/08/19 00:00 26 Mechanical Ventilator 40 04/08/19 00:00 Mechanical Ventilator 04/07/19 23:45 98 25 148/91 98 Mechanical Ventilator 40 04/07/19 23:30 88 25 145/95 100 Mechanical Ventilator 40 04/07/19 23:15 93 25 148/93 100 Mechanical Ventilator 40 04/07/19 23:15 89 27 40 04/07/19 23:00 98 24 145/97 100 Mechanical Ventilator 40 04/07/19 23:00 26 Mechanical Ventilator 40 04/07/19 22:55 30 Mechanical Ventilator 40 04/07/19 22:45 101 24 151/97 100 Mechanical Ventilator 40 04/07/19 22:30 107 23 151/93 100 Mechanical Ventilator 40 04/07/19 22:15 116 26 156/95 100 Mechanical Ventilator 40 04/07/19 22:00 115 25 151/93 98 Mechanical Ventilator 40 04/07/19 22:00 26 Mechanical Ventilator 40 04/07/19 21:45 126 19 158/98 99 Mechanical Ventilator 40 04/07/19 21:30 114 23 149/91 99 Mechanical Ventilator 40 04/07/19 21:15 117 22 142/89 99 Mechanical Ventilator 40 04/07/19 21:00 35 Mechanical Ventilator 40 04/07/19 21:00 122 19 148/114 99 Mechanical Ventilator 40 04/07/19 21:00 88 26 40 04/07/19 20:47 Mechanical Ventilator 40 04/07/19 20:45 119 24 154/103 98 Mechanical Ventilator 40 04/07/19 20:30 123 22 150/96 98 Mechanical Ventilator 40 04/07/19 20:15 133 25 156/101 99 Mechanical Ventilator 40 04/07/19 20:01 36 Mechanical Ventilator 40 04/07/19 20:00 136 04/07/19 20:00 40 04/07/19 20:00 Mechanical Ventilator 04/07/19 20:00 100.0 132 25 159/103 99 Mechanical Ventilator 40 04/07/19 19:45 125 25 142/96 98 Mechanical Ventilator 40 04/07/19 19:30 128 26 153/100 98 Mechanical Ventilator 40 04/07/19 19:15 136 24 145/110 99 Mechanical Ventilator 40 04/07/19 19:00 143 25 153/102 98 Mechanical Ventilator 40 04/07/19 19:00 142 30 40 04/07/19 18:00 122 26 143/83 99 Mechanical Ventilator 40 04/07/19 17:26 100.9 04/07/19 17:05 160 31 40 04/07/19 17:00 100.4 103 25 132/88 100 Mechanical Ventilator 40 04/07/19 16:00 130 04/07/19 16:00 40 04/07/19 16:00 101.2 148 24 157/103 99 Mechanical Ventilator 40 04/07/19 16:00 Mechanical Ventilator 04/07/19 15:04 105 26 40 04/07/19 15:00 103 25 132/88 100 Mechanical Ventilator 40 I&O Intake and Output 04/07/19 04/08/19 18:59 06:59 Intake Total 246 ml 892.93 ml Output Total 1830 ml 1250 ml Balance -1584 ml -357.07 ml Free Water 30 ml IV Total 111 ml 322.93 ml Tube Feeding 135 ml 540 ml Output Urine Total 1830 ml 1250 ml # Bowel Movements 1 1 Dressing: other Wound: other Drains: other Cardiovascular: RSR Respiratory: decreased breath sounds Abdomen: soft, present bowel sounds, non-distended Extremities: edema, no tenderness, no cyanosis Laboratory Tests Test 04/08/19 04:30 04/08/19 09:19 White Blood Count 15.0 K/UL (4.8-10.8) H Red Blood Count 2.73 M/UL (4.20-5.40) L Hemoglobin 8.2 G/DL (12.0-16.0) L Hematocrit 25.6 % (37.0-47.0) L Mean Corpuscular Volume 94 FL (80-99) Mean Corpuscular Hemoglobin 30.0 PG (27.0-31.0) Mean Corpuscular Hemoglobin Concent 31.9 G/DL (32.0-36.0) L Red Cell Distribution Width 19.4 % (11.6-14.8) H Platelet Count 441 K/UL (150-450) Mean Platelet Volume 6.2 FL (6.5-10.1) L Neutrophils (%) (Auto) % (45.0-75.0) Lymphocytes (%) (Auto) % (20.0-45.0) Monocytes (%) (Auto) % (1.0-10.0) Eosinophils (%) (Auto) % (0.0-3.0) Basophils (%) (Auto) % (0.0-2.0) Differential Total Cells Counted 100 Neutrophils % (Manual) 86 % (45-75) H Lymphocytes % (Manual) 7 % (20-45) L Monocytes % (Manual) 6 % (1-10) Eosinophils % (Manual) 0 % (0-3) Basophils % (Manual) 1 % (0-2) Band Neutrophils 0 % (0-8) Nucleated Red Blood Cells 2 /100 WBC Platelet Estimate Adequate Platelet Morphology Normal Anisocytosis 1+ Sodium Level 148 MMOL/L (136-145) H Potassium Level 4.1 MMOL/L (3.5-5.1) Chloride Level 109 MMOL/L (98-107) H Carbon Dioxide Level 33 MMOL/L (21-32) H Anion Gap 6 mmol/L (5-15) Blood Urea Nitrogen 20 mg/dL (7-18) H Creatinine 2.5 MG/DL (0.55-1.30) H Estimat Glomerular Filtration Rate 25.7 mL/min (>60) Glucose Level 169 MG/DL (74-106) H Uric Acid 6.9 MG/DL (2.6-7.2) Calcium Level 9.6 MG/DL (8.5-10.1) Phosphorus Level 6.5 MG/DL (2.5-4.9) H Magnesium Level 2.0 MG/DL (1.8-2.4) Total Bilirubin 0.8 MG/DL (0.2-1.0) Gamma Glutamyl Transpeptidase 513 U/L (5-85) H Aspartate Amino Transf (AST/SGOT) 41 U/L (15-37) H Alanine Aminotransferase (ALT/SGPT) 141 U/L (12-78) H Alkaline Phosphatase 366 U/L (46-116) H C-Reactive Protein, Quantitative 12.5 mg/dL (0.00-0.90) H Pro-B-Type Natriuretic Peptide 3269 pg/mL (0-125) H Total Protein 8.0 G/DL (6.4-8.2) Albumin 2.4 G/DL (3.4-5.0) L Globulin 5.6 g/dL Albumin/Globulin Ratio 0.4 (1.0-2.7) L Arterial Blood pH 7.463 (7.350-7.450) Arterial Blood Partial Pressure CO2 42.6 mmHg (35.0-45.0) Arterial Blood Partial Pressure O2 75.5 mmHg (75.0-100.0) Arterial Blood HCO3 29.8 mmol/L (22.0-26.0) H Arterial Blood Oxygen Saturation 94.4 % (95-100) L Arterial Blood Base Excess 5.5 (-2-2) H Amarjit Test Positive Plan Problems: (1) Abdominal pain Assessment & Plan: 43F presented with abd pain per report 01/04 generalized unable to obtain exam now that she is intubated in distress labs noted ventral incisional hernia reducible abd soft -iv fluids -okay to tube feeds advance to goal as tolerated trend labs -will order imaging when stabilized -HD as per renal -appreciate ICU care -fluid off with HD extubated swallow eval diet will follow with recs thank you Sedation holiday was had this morning followed by weaning trial but again patient was unable to tolerate. I spent a fair amount time of the bedside today attempting to wean and change vent settings for patient's comfort she is able to take spontaneous breaths but her tidal volumes are not good enough given her sedation. Will start weaning sedation again to attempt another weaning trial. Discussed with oil distributor tender at bedside. We have tried for a significant time to wean patient was on a daily basis and she still unable to be weaned. Unfortunately looks at this time this continues in this direction will potentially need a tracheostomy. (2) Ventral hernia (3) Acute on chronic pancreatitis Assessment & Plan: Evidence of acute on chronic pancreatitis. No pseudocyst. Hepatomegaly with severe steatosis. Mild hiatal hernia. abnormal lft's dehydrated dka renal insufficiency Continue diet as tolerated labs improving iv fluids tailored to uop appreciate endocrine input appreciate explosive ordnance disposal manager input needs urgent/emergency central venous catheter. Catheter stable unlikely source of leukocytosis see note HD as per renal vent support trend labs will follow with Lefty Montgomery Apr 08, 2019 14:56
--- NOTE | 2019-04-08 15:17 | Infectious Diseases Prog Note ---
Assessment/Plan Assessment/Plan Assessment: Sepsis PNA -04/08 CXR: Improving but persistent and still extensive bilateral interstitial and airspace edema, over 5 days -04/03 CXR: Extensive parenchymal consolidation, left lung greater than right, similar to prior. -04/02 BCx NTD sp cx MDR ABC (S bactrim), S. marcences (R ancef; otherwise S), PsA (black S) u/a wbc 15-20, n it neg, leuk +2; ucx yeast -04/01 CXR: Possible new or increased right pleural effusion. Otherwise unchanged over 3 days as described, including bilateral pulmonary interstitial and airspace edema versus infiltrates -03/28 sp cx normal resp elodia -11/30 u/a neg; ucx 20-30k uro elodia -Influenza sc neg Fever, improving Leukocytosis, persistent (on steroids) VDRF; extubated 04/08 Acute on chronic pancreatitis -CT abd/p: Evidence of acute on chronic pancreatitis. No pseudocyst. Hepatomegaly with severe steatosis. Mild hiatal hernia. AVINASH, improving -Renal US: Negative ultrasound the kidneys. Shock liver; LFTs improving -Abd US: No acute findings. Questionable mild pericholecystic fluid -acute hep panel neg -HIV ab sc neg Dm2 HTN tobacco and ETOH abuse COPD pancreatitis s/p multiple hernia operations x3 -first two in 2015; Last repair May 2018 with mesh placement at [facility] in [place] obesity Plan: -Continue empiric Meropenem #11/03-14 and PO Bactrim #/-14 for MDR ABC -04/04 SP IV Vancomycin #8 -04/02 SP Zosyn #6 -f/u cx -Monitor CBC/CMP, temperatures -ICU care -aspiration precautions -Bcx x2 Thank you for this consultation. Will continue to follow along with you. Discussed with RN Subjective Allergies: Coded Allergies: No Known Allergies (Unverified , 08/04/18) Subjective Tm 100.9 wbc increased, on high dose steroids extubated today Objective Vital Signs Last 24 Hour Vital Signs Date Time Temp Pulse Resp B/P (MAP) Pulse Ox O2 Delivery O2 Flow Rate FiO2 04/08/19 15:00 120 25 184/101 100 Nasal Cannula 4.0 04/08/19 14:00 131 15 179/95 91 Nasal Cannula 4.0 04/08/19 13:00 144 26 139/113 92 Nasal Cannula 4.0 04/08/19 12:00 135 04/08/19 12:00 99.1 135 20 148/92 95 Mechanical Ventilator 35 04/08/19 11:00 137 19 144/95 95 Mechanical Ventilator 35 04/08/19 10:15 154 23 149/96 99 Mechanical Ventilator 35 04/08/19 10:15 Venturi Mask 10.0 40 04/08/19 10:15 40 04/08/19 09:01 98 04/08/19 09:01 122 22 40 04/08/19 09:00 155 20 167/115 99 Mechanical Ventilator 35 04/08/19 08:00 101.1 142 24 161/112 100 Mechanical Ventilator 40 04/08/19 08:00 40 04/08/19 08:00 160 04/08/19 08:00 Mechanical Ventilator 04/08/19 07:15 125 21 180/111 100 Mechanical Ventilator 40 04/08/19 07:00 90 25 143/104 100 Mechanical Ventilator 40 04/08/19 06:50 108 31 40 04/08/19 06:45 84 26 134/90 99 Mechanical Ventilator 40 04/08/19 06:30 81 26 04/08/19 06:30 81 26 142/91 99 Mechanical Ventilator 40 04/08/19 06:15 82 26 147/91 99 Mechanical Ventilator 40 04/08/19 06:00 80 26 150/98 99 Mechanical Ventilator 40 04/08/19 05:45 81 26 155/94 99 Mechanical Ventilator 40 04/08/19 05:41 Mechanical Ventilator 40 04/08/19 05:40 26 Mechanical Ventilator 40 04/08/19 05:37 90 20 160/105 100 Mechanical Ventilator 40 04/08/19 05:30 80 26 157/100 100 Mechanical Ventilator 40 04/08/19 05:15 82 26 40 04/08/19 05:00 79 26 151/94 100 Mechanical Ventilator 40 04/08/19 05:00 26 Non-Rebreather 40 04/08/19 04:45 79 26 145/95 100 Mechanical Ventilator 40 04/08/19 04:30 79 26 128/86 100 Mechanical Ventilator 40 04/08/19 04:00 40 04/08/19 04:00 Mechanical Ventilator 04/08/19 04:00 82 04/08/19 04:00 26 Mechanical Ventilator 40 04/08/19 04:00 98.6 82 26 135/88 100 Mechanical Ventilator 40 04/08/19 03:45 85 26 137/92 100 Mechanical Ventilator 40 04/08/19 03:30 96 24 156/106 100 Mechanical Ventilator 40 04/08/19 03:20 76 26 40 04/08/19 03:15 107 25 151/111 100 Mechanical Ventilator 40 04/08/19 03:00 110 24 154/100 100 Mechanical Ventilator 40 04/08/19 03:00 26 Mechanical Ventilator 40 04/08/19 02:45 103 25 146/99 100 Mechanical Ventilator 40 04/08/19 02:30 103 25 151/98 100 Mechanical Ventilator 40 04/08/19 02:15 99 24 148/96 100 Mechanical Ventilator 40 04/08/19 02:00 92 24 143/109 100 Mechanical Ventilator 40 04/08/19 02:00 26 Mechanical Ventilator 40 04/08/19 01:58 26 Mechanical Ventilator 40 04/08/19 01:00 76 27 40 04/08/19 01:00 83 25 137/89 100 Mechanical Ventilator 40 04/08/19 01:00 26 Mechanical Ventilator 40 04/08/19 00:45 85 26 129/89 100 Mechanical Ventilator 40 04/08/19 00:30 88 24 144/93 100 Mechanical Ventilator 40 04/08/19 00:15 93 24 143/94 100 Mechanical Ventilator 40 04/08/19 00:00 98.5 93 25 149/101 100 Mechanical Ventilator 40 04/08/19 00:00 26 Mechanical Ventilator 40 04/08/19 00:00 Mechanical Ventilator 04/07/19 23:45 98 25 148/91 98 Mechanical Ventilator 40 04/07/19 23:30 88 25 145/95 100 Mechanical Ventilator 40 04/07/19 23:15 93 25 148/93 100 Mechanical Ventilator 40 04/07/19 23:15 89 27 40 04/07/19 23:00 98 24 145/97 100 Mechanical Ventilator 40 04/07/19 23:00 26 Mechanical Ventilator 40 04/07/19 22:55 30 Mechanical Ventilator 40 04/07/19 22:45 101 24 151/97 100 Mechanical Ventilator 40 04/07/19 22:30 107 23 151/93 100 Mechanical Ventilator 40 04/07/19 22:15 116 26 156/95 100 Mechanical Ventilator 40 04/07/19 22:00 115 25 151/93 98 Mechanical Ventilator 40 04/07/19 22:00 26 Mechanical Ventilator 40 04/07/19 21:45 126 19 158/98 99 Mechanical Ventilator 40 04/07/19 21:30 114 23 149/91 99 Mechanical Ventilator 40 04/07/19 21:15 117 22 142/89 99 Mechanical Ventilator 40 04/07/19 21:00 35 Mechanical Ventilator 40 04/07/19 21:00 122 19 148/114 99 Mechanical Ventilator 40 04/07/19 21:00 88 26 40 04/07/19 20:47 Mechanical Ventilator 40 04/07/19 20:45 119 24 154/103 98 Mechanical Ventilator 40 04/07/19 20:30 123 22 150/96 98 Mechanical Ventilator 40 04/07/19 20:15 133 25 156/101 99 Mechanical Ventilator 40 04/07/19 20:01 36 Mechanical Ventilator 40 04/07/19 20:00 136 04/07/19 20:00 40 04/07/19 20:00 Mechanical Ventilator 04/07/19 20:00 100.0 132 25 159/103 99 Mechanical Ventilator 40 04/07/19 19:45 125 25 142/96 98 Mechanical Ventilator 40 04/07/19 19:30 128 26 153/100 98 Mechanical Ventilator 40 04/07/19 19:15 136 24 145/110 99 Mechanical Ventilator 40 04/07/19 19:00 143 25 153/102 98 Mechanical Ventilator 40 04/07/19 19:00 142 30 40 04/07/19 18:00 122 26 143/83 99 Mechanical Ventilator 40 04/07/19 17:26 100.9 04/07/19 17:05 160 31 40 04/07/19 17:00 100.4 103 25 132/88 100 Mechanical Ventilator 40 04/07/19 16:00 130 04/07/19 16:00 40 04/07/19 16:00 101.2 148 24 157/103 99 Mechanical Ventilator 40 04/07/19 16:00 Mechanical Ventilator Height (Feet): 5 Height (Inches): 2.00 Weight (Pounds): 187 Objective GENERAL: The patient is a well-developed, well-nourished, obese female, in no apparent distress. HEENT: Eyes, pupils equal and responsive to light and accommodation. Extraocular movements are intact. NECK: Supple. No lymphadenopathy. CHEST: Lungs are clear to auscultation bilaterally without wheezes or rales. CARDIOVASCULAR: Regular rate. S1, S2 normal without murmurs, rubs, or gallops. ABDOMEN: Soft, tender to palpation in the epigastric region, with decreased bowel sounds. There is tenderness to palpation in the epigastric region. There is no rebound or guarding noted. EXTREMITIES: Negative for clubbing, cyanosis, or edema. Laboratory Tests Test 04/08/19 04:30 04/08/19 09:19 White Blood Count 15.0 K/UL (4.8-10.8) H Red Blood Count 2.73 M/UL (4.20-5.40) L Hemoglobin 8.2 G/DL (12.0-16.0) L Hematocrit 25.6 % (37.0-47.0) L Mean Corpuscular Volume 94 FL (80-99) Mean Corpuscular Hemoglobin 30.0 PG (27.0-31.0) Mean Corpuscular Hemoglobin Concent 31.9 G/DL (32.0-36.0) L Red Cell Distribution Width 19.4 % (11.6-14.8) H Platelet Count 441 K/UL (150-450) Mean Platelet Volume 6.2 FL (6.5-10.1) L Neutrophils (%) (Auto) % (45.0-75.0) Lymphocytes (%) (Auto) % (20.0-45.0) Monocytes (%) (Auto) % (1.0-10.0) Eosinophils (%) (Auto) % (0.0-3.0) Basophils (%) (Auto) % (0.0-2.0) Differential Total Cells Counted 100 Neutrophils % (Manual) 86 % (45-75) H Lymphocytes % (Manual) 7 % (20-45) L Monocytes % (Manual) 6 % (1-10) Eosinophils % (Manual) 0 % (0-3) Basophils % (Manual) 1 % (0-2) Band Neutrophils 0 % (0-8) Nucleated Red Blood Cells 2 /100 WBC Platelet Estimate Adequate Platelet Morphology Normal Anisocytosis 1+ Sodium Level 148 MMOL/L (136-145) H Potassium Level 4.1 MMOL/L (3.5-5.1) Chloride Level 109 MMOL/L (98-107) H Carbon Dioxide Level 33 MMOL/L (21-32) H Anion Gap 6 mmol/L (5-15) Blood Urea Nitrogen 20 mg/dL (7-18) H Creatinine 2.5 MG/DL (0.55-1.30) H Estimat Glomerular Filtration Rate 25.7 mL/min (>60) Glucose Level 169 MG/DL (74-106) H Uric Acid 6.9 MG/DL (2.6-7.2) Calcium Level 9.6 MG/DL (8.5-10.1) Phosphorus Level 6.5 MG/DL (2.5-4.9) H Magnesium Level 2.0 MG/DL (1.8-2.4) Total Bilirubin 0.8 MG/DL (0.2-1.0) Gamma Glutamyl Transpeptidase 513 U/L (5-85) H Aspartate Amino Transf (AST/SGOT) 41 U/L (15-37) H Alanine Aminotransferase (ALT/SGPT) 141 U/L (12-78) H Alkaline Phosphatase 366 U/L (46-116) H C-Reactive Protein, Quantitative 12.5 mg/dL (0.00-0.90) H Pro-B-Type Natriuretic Peptide 3269 pg/mL (0-125) H Total Protein 8.0 G/DL (6.4-8.2) Albumin 2.4 G/DL (3.4-5.0) L Globulin 5.6 g/dL Albumin/Globulin Ratio 0.4 (1.0-2.7) L Arterial Blood pH 7.463 (7.350-7.450) Arterial Blood Partial Pressure CO2 42.6 mmHg (35.0-45.0) Arterial Blood Partial Pressure O2 75.5 mmHg (75.0-100.0) Arterial Blood HCO3 29.8 mmol/L (22.0-26.0) H Arterial Blood Oxygen Saturation 94.4 % (95-100) L Arterial Blood Base Excess 5.5 (-2-2) H Amarjit Test Positive Current Medications Medications (Trade) Dose Ordered Sig/Greta Route PRN Reason Start Time Stop Time Status Last Admin Dose Admin Acetaminophen (Tylenol) 650 mg Q4H PRN GT T>100.5 03/30/19 09:45 04/29/19 09:44 04/07/19 16:56 Chlorhexidine Gluconate (Hetal-Hex 2%) 1 applic DAILY@1999 TOPIC 03/27/19 20:00 04/26/19 19:59 04/07/19 20:01 Clonidine HCl (Catapres Tab) 0.1 mg Q8H PRN NG For High Blood Pressure 04/05/19 17:30 05/05/19 17:29 Dexamethasone Sodium Phosphate (Decadron 4mg/ml vial) 4 mg Q8HR IVP 04/07/19 14:00 04/10/19 13:59 04/08/19 14:45 Dextrose (Dextrose 50%) 25 ml Q30M PRN IV Hypoglycemia 03/28/19 11:30 04/27/19 11:29 Dextrose (Dextrose 50%) 50 ml Q30M PRN IV Hypoglycemia 03/28/19 11:30 04/27/19 11:29 Epoetin John (Epoetin John(ESRD on dialysis)) 10,000 unit THU-THU-THU SUBQ 03/30/19 21:00 04/29/19 20:59 04/06/19 20:24 Fentanyl Citrate 1000 mcg/Sodium Chloride 100 ml @ 0 mls/hr Q24H IV 04/05/19 17:30 04/12/19 17:29 04/08/19 05:41 Guaifenesin (Robitussin) 200 mg Q4H PRN GT For Cough 03/30/19 09:45 04/26/19 11:14 Hydralazine HCl (Apresoline) 10 mg Q6H PRN IV For High Blood Pressure 04/05/19 17:30 05/05/19 17:29 04/05/19 18:09 Hydromorphone HCl (Dilaudid) 0.5 mg Q3H PRN IVP Pain Scale (3-5) 04/08/19 10:45 04/15/19 10:44 Hydromorphone HCl (Dilaudid) 1 mg Q3H PRN IVP Severe Pain (Pain Scale 7-10) 04/08/19 10:45 04/15/19 10:44 04/08/19 10:53 Insulin Aspart (NovoLOG) Q6HR SUBQ 04/03/19 12:00 04/27/19 11:59 04/08/19 05:25 Insulin Detemir (Levemir) 6 units BID SUBQ 03/30/19 09:00 04/27/19 11:59 04/08/19 09:59 Lorazepam (Ativan 2mg/ml 1ml) 1 mg Q2H PRN IV For Anxiety 04/05/19 17:30 04/12/19 17:29 04/08/19 03:26 Meropenem 500 mg/ Sodium Chloride 55 ml @ 110 mls/hr Q24H IVPB 04/03/19 16:00 04/12/19 15:59 04/07/19 15:44 Nitroglycerin (Ntg) 0.4 mg Q5MIN X 3 DOSES PRN SL Prn Chest Pain 03/26/19 20:15 04/25/19 20:14 Ondansetron HCl (Zofran) 4 mg Q6H PRN IVP Nausea & Vomiting 03/26/19 20:00 04/25/19 19:59 03/30/19 06:20 Pantoprazole (Protonix) 40 mg EVERY 12 HOURS IVP 03/30/19 09:00 04/29/19 08:59 04/08/19 09:54 Polyethylene Glycol (Miralax) 17 gm DAILYPRN PRN ORAL Constipation 03/26/19 20:00 04/25/19 19:59 Thiamine HCl 100 mg/Sodium Chloride 56 ml @ 112 mls/hr DAILY IVPB 03/29/19 09:00 04/28/19 08:59 04/08/19 09:54 Trimethoprim/ Sulfamethoxazole (Bactrim Single Strength) 1 tab Q24H ORAL 04/06/19 18:00 04/13/19 17:59 04/07/19 17:30 Lazara Dozier M.D. Apr 08, 2019 15:17
[2019-04-08] MEDS ORDERED: Racemic EPINEPHrine 2.25% 0.5ml HHN PRN (15:45)
[2019-04-08] MEDS: Meropenem 500mg/NS 55ml IVPB SCH ×2 (16:40)
--- NOTE | 2019-04-08 17:22 | Pulmonolgy Critical Care Note ---
Critical Care - Asmt/Plan Assessment/Plan: Pulmonary Critical Care Progress Note HPI Patient is a 43-year-old woman with past history of Diabetes, Hypertension, Chronic Obstructive Pulmonary Disease, admitted with Acute on Chronic Pancreatitis, elevated Liver Functions, Thrombocytopenia. Had c/o abdominal pain , nausea and vomiting, shortness of breath, coughing. She has a history of pancreatitis, noted to have features of Pancreatitis as well as azotemia, elevated liver function tests. She has history of multiple hernia operations, last in May 2018. Developed ARDS complication Pancreatitis. Patient noted to be in Diabetic Ketoacidosis on admission - remains on Insulin gtt, Metabolic acidosis, ARDS/fluid overload, requiring intubation and mechanical ventilation, Acute Renal Failure, s/p Hemodialysis previously Improving PEEP/FIO2, tolerated weaning today, failed cuff leak - now on Decadron , extubated today Improving renal function and U/O Allergies: No Known Allergies Past Medical History: Diabetes, Hypertension, Chronic Obstructive Pulmonary Disease, Pancreatitis Physical Exam Vital Signs Noted General Appearance: extubated, not distressed Head: normocephalic, atraumatic Eyes: bilateral eye normal inspection, bilateral PERRL ENT: moist mm, ETT Neck: no LN, no masses Respiratory: bilateral rhonchi, BS equal bilaterally Cardiovascular: HS1, HS2 normal, mild edema Gastrointestinal: normal bowel sounds, soft, non-distended, tenderness - epigastric, hernia - ventral Musculoskeletal: well perfused, moving all limbs Neurologic: no seizures, no focal signs Impression: Pneumonia vs ARDS Respiratory Failure with improved FIO2 and PEEP requirements, failed cuff leak - improved on Decadron - now extubated Acute on Chronic Pancreatitis Hypocalcemia sp replacement Hypomagnesemia s/p replacement Reduced Albumin level, receiving NGT feeds Acute Renal Failure on HD PRN, Cr improving, adequate urine output Elevated Liver Function Tests Significant previous Alcohol abuse per her partner Thrombocytopenia GI bleed - on Protonix - s/p upper GI endoscopy Diabetic ketoacidosis improved Severe metabolic acidosis resolved H/o Hypertension H/o Chronic Obstructive Pulmonary Disease, H/o Multiple Previous Hernia Surgeries Plan s/p extubation, continue Decadron x 2 days, Racemic epi/BiPAP PRN CXR noted, improving infiltrates CXR PRN Dialysis per renal Monitor labs, Repeat ABG PRN HHN Broad spectrum antibiotics/ID PRN Sedation - lighten as tolerated PPX: SCD/Protonix Insulin SQ Labs noted Echo: Preserved LV function EKG: Rate: tachycardiac Rhythm: NSR ST Segments: no acute changes ASA given to the pt in ED: No Chest X-Ray 03/26/2019: no consolidation, no effusion, no pneumothorax, no acute cardiopulmonary disease CXR: 03/27/2019: worsening bilateral infiltrates, low lung volumes, ETT low CT A/P: Lung bases: No mass. No consolidation. ABDOMEN: Liver: Unremarkable. Gallbladder and bile ducts: Unremarkable. Pancreas: Stranding around the pancreas. Multiple calcifications within the pancreas.. Spleen: Unremarkable. Adrenals: Unremarkable. Kidneys and ureters: No hydronephrosis. Stomach and bowel: No bowel obstruction. No bowel wall thickening. Fatty infiltration of the colonic wall. Mild hiatal hernia. PELVIS: Appendix: No evidence of appendicitis. Bladder: Unremarkable. Reproductive: Unremarkable. ABDOMEN and PELVIS: Intraperitoneal space: Unremarkable. Bones/joints: No acute fractures. Soft tissues: Fat containing periumbilical hernia. Vasculature: No abdominal aortic aneurysm. Lymph nodes: No enlarged lymph nodes. Critical Care - Objective Last 24 Hour Vital Signs Date Time Temp Pulse Resp B/P (MAP) Pulse Ox O2 Delivery O2 Flow Rate FiO2 04/08/19 16:00 137 04/08/19 16:00 4.0 04/08/19 16:00 99.1 139 29 173/81 91 Nasal Cannula 4.0 04/08/19 16:00 Nasal Cannula 4.0 Nasal Cannula 4.0 04/08/19 15:00 120 25 184/101 100 Nasal Cannula 4.0 04/08/19 14:00 131 15 179/95 91 Nasal Cannula 4.0 04/08/19 13:00 144 26 139/113 92 Nasal Cannula 4.0 04/08/19 12:00 135 04/08/19 12:00 Nasal Cannula 4.0 Nasal Cannula 4.0 04/08/19 12:00 4.0 04/08/19 12:00 99.1 135 20 148/92 95 Mechanical Ventilator 35 04/08/19 11:00 137 19 144/95 95 Mechanical Ventilator 35 04/08/19 10:15 154 23 149/96 99 Mechanical Ventilator 35 04/08/19 10:15 Venturi Mask 10.0 40 04/08/19 10:15 40 04/08/19 09:01 98 04/08/19 09:01 122 22 40 04/08/19 09:00 155 20 167/115 99 Mechanical Ventilator 35 04/08/19 08:00 101.1 142 24 161/112 100 Mechanical Ventilator 40 04/08/19 08:00 40 04/08/19 08:00 160 04/08/19 08:00 Mechanical Ventilator 04/08/19 07:15 125 21 180/111 100 Mechanical Ventilator 40 04/08/19 07:00 90 25 143/104 100 Mechanical Ventilator 40 04/08/19 06:50 108 31 40 04/08/19 06:45 84 26 134/90 99 Mechanical Ventilator 40 04/08/19 06:30 81 26 04/08/19 06:30 81 26 142/91 99 Mechanical Ventilator 40 04/08/19 06:15 82 26 147/91 99 Mechanical Ventilator 40 04/08/19 06:00 80 26 150/98 99 Mechanical Ventilator 40 04/08/19 05:45 81 26 155/94 99 Mechanical Ventilator 40 04/08/19 05:41 Mechanical Ventilator 40 04/08/19 05:40 26 Mechanical Ventilator 40 04/08/19 05:37 90 20 160/105 100 Mechanical Ventilator 40 04/08/19 05:30 80 26 157/100 100 Mechanical Ventilator 40 04/08/19 05:15 82 26 40 04/08/19 05:00 79 26 151/94 100 Mechanical Ventilator 40 04/08/19 05:00 26 Non-Rebreather 40 04/08/19 04:45 79 26 145/95 100 Mechanical Ventilator 40 04/08/19 04:30 79 26 128/86 100 Mechanical Ventilator 40 04/08/19 04:00 40 04/08/19 04:00 Mechanical Ventilator 04/08/19 04:00 82 04/08/19 04:00 26 Mechanical Ventilator 40 04/08/19 04:00 98.6 82 26 135/88 100 Mechanical Ventilator 40 04/08/19 03:45 85 26 137/92 100 Mechanical Ventilator 40 04/08/19 03:30 96 24 156/106 100 Mechanical Ventilator 40 04/08/19 03:20 76 26 40 04/08/19 03:15 107 25 151/111 100 Mechanical Ventilator 40 04/08/19 03:00 110 24 154/100 100 Mechanical Ventilator 40 04/08/19 03:00 26 Mechanical Ventilator 40 04/08/19 02:45 103 25 146/99 100 Mechanical Ventilator 40 04/08/19 02:30 103 25 151/98 100 Mechanical Ventilator 40 04/08/19 02:15 99 24 148/96 100 Mechanical Ventilator 40 04/08/19 02:00 92 24 143/109 100 Mechanical Ventilator 40 04/08/19 02:00 26 Mechanical Ventilator 40 04/08/19 01:58 26 Mechanical Ventilator 40 04/08/19 01:00 76 27 40 04/08/19 01:00 83 25 137/89 100 Mechanical Ventilator 40 04/08/19 01:00 26 Mechanical Ventilator 40 04/08/19 00:45 85 26 129/89 100 Mechanical Ventilator 40 04/08/19 00:30 88 24 144/93 100 Mechanical Ventilator 40 04/08/19 00:15 93 24 143/94 100 Mechanical Ventilator 40 04/08/19 00:00 98.5 93 25 149/101 100 Mechanical Ventilator 40 04/08/19 00:00 26 Mechanical Ventilator 40 04/08/19 00:00 Mechanical Ventilator 04/07/19 23:45 98 25 148/91 98 Mechanical Ventilator 40 04/07/19 23:30 88 25 145/95 100 Mechanical Ventilator 40 04/07/19 23:15 93 25 148/93 100 Mechanical Ventilator 40 04/07/19 23:15 89 27 40 04/07/19 23:00 98 24 145/97 100 Mechanical Ventilator 40 04/07/19 23:00 26 Mechanical Ventilator 40 04/07/19 22:55 30 Mechanical Ventilator 40 04/07/19 22:45 101 24 151/97 100 Mechanical Ventilator 40 04/07/19 22:30 107 23 151/93 100 Mechanical Ventilator 40 04/07/19 22:15 116 26 156/95 100 Mechanical Ventilator 40 04/07/19 22:00 115 25 151/93 98 Mechanical Ventilator 40 04/07/19 22:00 26 Mechanical Ventilator 40 04/07/19 21:45 126 19 158/98 99 Mechanical Ventilator 40 04/07/19 21:30 114 23 149/91 99 Mechanical Ventilator 40 04/07/19 21:15 117 22 142/89 99 Mechanical Ventilator 40 04/07/19 21:00 35 Mechanical Ventilator 40 04/07/19 21:00 122 19 148/114 99 Mechanical Ventilator 40 04/07/19 21:00 88 26 40 04/07/19 20:47 Mechanical Ventilator 40 04/07/19 20:45 119 24 154/103 98 Mechanical Ventilator 40 04/07/19 20:30 123 22 150/96 98 Mechanical Ventilator 40 04/07/19 20:15 133 25 156/101 99 Mechanical Ventilator 40 04/07/19 20:01 36 Mechanical Ventilator 40 04/07/19 20:00 136 04/07/19 20:00 40 04/07/19 20:00 Mechanical Ventilator 04/07/19 20:00 100.0 132 25 159/103 99 Mechanical Ventilator 40 04/07/19 19:45 125 25 142/96 98 Mechanical Ventilator 40 04/07/19 19:30 128 26 153/100 98 Mechanical Ventilator 40 04/07/19 19:15 136 24 145/110 99 Mechanical Ventilator 40 04/07/19 19:00 143 25 153/102 98 Mechanical Ventilator 40 04/07/19 19:00 142 30 40 04/07/19 18:00 122 26 143/83 99 Mechanical Ventilator 40 04/07/19 17:26 100.9 Accucheck: 225 Critical Care - Subjective ROS Limited/Unobtainable: No FI02: 35 Vent Support Breath Rate: 26 Vent Support Mode: CPAP Vent Tidal Volume: 450 Sputum Amount: Scant PEEP: 5.0 PIP: 32 Tube Feeding Amount: 45 I&O: Intake and Output 04/07/19 04/08/19 18:59 06:59 Intake Total 246 ml 892.93 ml Output Total 1830 ml 1250 ml Balance -1584 ml -357.07 ml Free Water 30 ml IV Total 111 ml 322.93 ml Tube Feeding 135 ml 540 ml Output Urine Total 1830 ml 1250 ml # Bowel Movements 1 1 ET-Tube: 7.5 ET Position: 23 Julio Rodrigez MD Apr 08, 2019 17:22
[2019-04-08] MEDS: Bactrim SS Tab ORAL SCH (18:35)
[2019-04-08] MEDS ORDERED: Albuterol/Ipratropium 3ml neb HHN SCH (19:00)
[2019-04-08] MEDS: Epoetin Alfa-EPBX(ESRD on dialysis)10,000 unit/ml vial SUBQ SCH (20:31)
[2019-04-08] MEDS: Dyna-Hex 2% Top Sol 2oz TOPIC SCH (20:31)
[2019-04-08] MEDS ORDERED: Tubing IV Secondary IV ONE (21:46)
[2019-04-08] MEDS ORDERED: NS 275ml ONE (21:46)
--- NOTE | 2019-04-10 19:27 | Discharge Summary ---
Discharge Summary Discharge Summary _ DATE OF ADMISSION: 03/26/2019 DATE OF DISCHARGE: 04/08/2019 DISCHARGED BY: Dr. Shree Mcintyre CONSULTANTS: Dr. Lazara Rodrigez [facility] HOSPITAL COURSE: Patient is a 43-year-old -[place] female, who presented to ED with complaints of abdominal pain. She was admitted to [place] in December with similar symptoms. Patient has a history of abdominal hernia repair in the past 3 years. Last hernia repair was in May 2018. She has history of chronic pancreatitis. She presented with complaints of 3-day epigastric pain, with associated nausea and vomiting. She also has shortness of breath. She has medical history significant for type 2 diabetes, and hypertension. Upon evaluation at the ED, blood pressure was 93/71, heart rate 125. She was saturating 97% on room air. Blood work showed glucose greater than 800, anion gap 28. ABG showed acidosis. LFTs elevated. Sodium was 127, potassium 5.7, chloride 88. BUN 15, creatinine 2.5. Urinalysis showed 3+ protein, 4+ glucose , 1+ ketone, 4+ blood, negative nitrite, negative leukocyte esterase. CT of the abdomen and pelvis showed acute on chronic pancreatitis. Patient was hard stick. A peripheral external jugular line was inserted. She was given IV fluids. She was given IV bolus and was eventually started on insulin drip. She was admitted to ICU in critical condition for evaluation of DKA, pancreatitis, and renal insufficiency. She was continued on IV hydration. Continued on insulin drip. Patient was admitted to ICU. On reassessment, patient was found to be altered. ED physician was called. ABG showed significant acidosis despite improved glucose. Patient was then orally intubated. Dr. Meraz was consulted. Patient was critically ill and was decompensating. Patient needs urgent central venous catheter for IV fluids and drips. Multiple peripheral line attempts were unsuccessful. A central catheter was then inserted through the right femoral vein. She was given bicarb drip. She was started empirically on broad-spectrum IV antibiotics. Ventral hernia was reducible. Kidney function was monitored. Patient has acute renal failure. Kidney ultrasound showed normal echogenicity, size and contour of both kidneys. Patient had an episode of coffee-ground emesis. GI consulted. Patient had a history of early non-necrotizing acute pancreatitis during previous admission. Lipase levels eventually normalized. GGT was 885. She was given proton pump inhibitors. Liver function was monitored. Thrombocytopenia was improving. On 03/29/2019. DKA eventually resolved. She was given Levemir and Humalog. NG tube was inserted and was started on NG tube feeding. Patient had worsening acute renal failure. 2D echocardiogram showed preserved LV function. Creatinine peaked at 4.7. A right transjugular temporary hemodialysis catheter was inserted. She was started on hemodialysis. She was given magnesium and calcium supplementation. LFTs were elevated. Hepatitis panel negative. HIV screen negative. Possibly from shock liver. Repeat LFTs with downtrending. Urine toxicology was positive for benzodiazepines. Patient had rising leukocytosis. She was also febrile. ID was consulted. Influenza screen was negative. Urinalysis was negative, sputum culture showed normal respiratory elodia. Chest x-ray showed possible pneumonia or increased right pleural effusion. Patient with respiratory failure and ARDS. Possible sepsis versus SIRS. She was continued on IV vancomycin. Zosyn was switched to meropenem. Patient had air leak to the endotracheal tube balloon. ED physician was called to assist patient. A new endotracheal tube was placed. There was good air movement. No air leak. Chest x-ray postprocedure showed bilateral infiltrate versus pulmonary edema versus ARDS. No pneumothorax. She was placed on weaning protocol. Hemoglobin dropped. Stool OB positive. On 04/04/19, she underwent EGD with biopsy. Patient has evidence of diffuse gastritis. Tube feeding was resumed. Pathology result was negative for H. pylori. Kidney function was improving. Leukocytosis also improved. Vancomycin discontinued. Repeat sputum culture showed growth of MDR Acinetobacter. She was given p.o. Bactrim. She was not tolerating weaning process. She was placed back on Versed drip to keep her more comfortable. She was fighting the vent. Several adjustments were made on vent setting to keep patient comfortable. She was eventually able to tolerate weaning efforts. She was given Decadron. She was eventually extubated in the morning of 04/08/2019. She left AMA later that day. FINAL DIAGNOSES: Sepsis Pneumonia ARDS Vent dependent respiratory failure, status post extubation Diabetic ketoacidosis, resolved Acute on chronic pancreatitis Acute renal failure, resolved with initiation of hemodialysis Shock liver Diabetes mellitus, out of control Hypertension Tobacco and EtOH abuse Status post multiple hernia operation x3 Obesity Hypocalcemia Hypomagnesemia Thrombocytopenia Drop in hemoglobin, status post endoscopy with findings of gastritis Anemia Severe metabolic acidosis resolved Coagulopathy DISPOSITION: Patient left against medical advise. I have been assigned to complete a discharge summary on this account, I was not involved with the patient's management.--ZAHEER Corona Jacqueline Robles NP Apr 10, 2019 19:27
== END 2019-04-08 21:47 | disposition left against medical advice (07) | DRG 282 ==
LOC: EMR 17:06 → ICU 20:04 → EDBEDREQ 20:14
PROC: 0BH17EZ Insertion of Endotracheal Airway into Trachea, Via Natural or Artificial Opening (ICD-10-PCS; principal; 2019-03-27)
PROC: 5A1955Z Respiratory Ventilation, Greater than 96 Consecutive Hours (ICD-10-PCS; principal; 2019-03-27)
PROC: 06HM33Z Insertion of Infusion Device into Right Femoral Vein, Percutaneous Approach (ICD-10-PCS; 2019-03-27)
PROC: 05HM33Z Insertion of Infusion Device into Right Internal Jugular Vein, Percutaneous Approach (ICD-10-PCS; 2019-03-29)
DX: K85.90 Acute pancreatitis without necrosis or infection, unspecified (principal); E11.10 Type 2 diabetes mellitus with ketoacidosis without coma; K86.1 Other chronic pancreatitis; I12.9 Hypertensive chronic kidney disease with stage 1 through stage 4 chronic kidney disease, or unspecified chronic kidney disease; E11.22 Type 2 diabetes mellitus with diabetic chronic kidney disease; N18.9 Chronic kidney disease, unspecified; N17.9 Acute kidney failure, unspecified; A41.9 Sepsis, unspecified organism; K43.2 Incisional hernia without obstruction or gangrene; R71.0 Precipitous drop in hematocrit; E83.42 Hypomagnesemia; J80 Acute respiratory distress syndrome; K72.00 Acute and subacute hepatic failure without coma; J96.00 Acute respiratory failure, unspecified whether with hypoxia or hypercapnia; J18.9 Pneumonia, unspecified organism; D69.6 Thrombocytopenia, unspecified; Z99.11 Dependence on respirator [ventilator] status; K92.0 Hematemesis; Z72.0 Tobacco use; F10.10 Alcohol abuse, uncomplicated; E83.51 Hypocalcemia; K29.70 Gastritis, unspecified, without bleeding; D68.9 Coagulation defect, unspecified
CPT/HCPCS: 36415; 36569; 36600; 71045; 74018; 74176; 76700; 76770; 76937; 77001; 80048; 80053; 80061; 80076; 80202; 80307; 81003; 82009; 82140; 82150; 82164; 82248; 82270; 82330; 82550; 82803; 82947; 82962; 82977; 83036; 83605; 83615; 83690; 83735; 83880; 84100; 84300; 84443; 84484; 84550; 84703; 85007; 85025; 85384; 85610; 85651; 85730; 86140; 86703; 86705; 86709; 86710; 86803; 86850; 86900; 86901; 87040; 87070; 87086; 87181; 87205; 87340; 93005; 93306; 93970; 94002; 94003; 94150; 94640; 94664; 99291; J1815; J2405; J7030; J7620; J8499; S5561

== ENCOUNTER 2019-06-07 13:59 | Emergency (ER) | payer OTHER ==
[~2019-06-07] VITALS: Ht 157.5 cm; Wt 77.1 kg
--- NOTE | 2019-06-07 13:59 | NUR ---
ED Nurse Note: PT brought in by [facility] [id number] for upper left abdominal pain x 2 days. pt reports having hernia.
[2019-06-07 14:00] VITALS: BP 140/92
--- NOTE | 2019-06-07 14:09 | NUR ---
BLOOD SAMPLE SENT DOWN TO LAB
[2019-06-07] MEDS ORDERED: Ketorolac 30mg Inj IV ONE (14:15)
[2019-06-07] MEDS ORDERED: Omnipaque-300 100ml vial INJ PRN (14:15)
[2019-06-07] MEDS ORDERED: Morphine Sulfate 2mg/ml Inj(IV/IM USE ONLY) IVP ONE ×2 (14:30→19:15)
--- NOTE | 2019-06-07 15:02 | NUR ---
ED Nurse Note: Ultrasound at bedside
[2019-06-07 15:33] LABS: APPEARANCE,URINE CLEAR; BILIRUBIN, URINE NEGATIVE (NEGATIVE); COLOR,URINE PALE YELLOW; GLUCOSE, URINE (UA) 4+ (NEGATIVE); KETONES,URINE NEGATIVE (NEGATIVE); LEUKOCYTE ESTERASE ,URINE NEGATIVE (NEGATIVE); NITRITE,URINE NEGATIVE (NEGATIVE); PH,URINE 5 (4.5-8.0); PROTEIN,URINE NEGATIVE (NEGATIVE); UROBILINOGEN,URINE NORMAL MG/DL (0.0-1.0)
--- NOTE | 2019-06-07 15:45 | Diagnostic Imaging Report ---
Indication: Chest pain Technique: One view of the chest Comparison: 04/08/2019 Findings: Interim removal of previously demonstrated gastric tube, endotracheal tube, and dialysis catheter. Lungs and pleural spaces are currently clear, previously demonstrated interstitial congestion has resolved.. Normal heart size Impression: No acute process
--- NOTE | 2019-06-07 15:59 | NUR ---
ED Nurse Note: more labs needs to be drawn, but patient refused to get her blood drawn. ISHMAELA aware.
[2019-06-07] MEDS ORDERED: Morphine Sulfate 4mg/ml Inj (IV USE ONLY) IVP ONE (16:00)
[2019-06-07 16:04] LABS: BASOPHILS % (AUTO) 2.4 % (0.0-2.0); EOSINOPHILS % (AUTO) 0.1 % (0.0-3.0); HEMATOCRIT 47.8 % (37.0-47.0); HEMOGLOBIN 15.1 G/DL (12.0-16.0); LYMPHOCYTES % (AUTO) 35.3 % (20.0-45.0); MEAN CORPUSCULAR VOLUME 98 FL (80-99); MONOCYTES % (AUTO) 10.2 % (1.0-10.0); NEUTROPHILS % (AUTO) 51.9 % (45.0-75.0); PLATELET COUNT 224 K/UL (150-450); RED BLOOD COUNT 4.88 M/UL (4.20-5.40); RED CELL DISTRIBUTION WIDTH 14.2 % (11.6-14.8); WHITE BLOOD COUNT 7.1 K/UL (4.8-10.8)
[2019-06-07 16:11] VITALS: BP 137/88
[2019-06-07 16:15] LABS: ANION GAP 27 mmol/L (5-15); BLOOD UREA NITROGEN 3 mg/dL (7-18); CALCIUM 9.3 MG/DL (8.5-10.1); CARBON DIOXIDE 13 MMOL/L (21-32); CHLORIDE 87 MMOL/L (98-107); CREATININE 1.3 MG/DL (0.55-1.30); POTASSIUM 3.8 MMOL/L (3.5-5.1); SODIUM 127 MMOL/L (136-145)
[2019-06-07 16:17] LABS: ALANINE AMINOTRANSFERASE 30 U/L (12-78); ALBUMIN 3.7 G/DL (3.4-5.0); ALBUMIN/GLOBULIN RATIO 0.8 (1.0-2.7); ALKALINE PHOSPHATASE 211 U/L (46-116); ASPARTATE AMINO TRANSFERASE 38 U/L (15-37); BILIRUBIN,TOTAL 0.3 MG/DL (0.2-1.0)
[2019-06-07] MEDS ORDERED: Insulin Human Regular 100units/ml 3ml IV ONE (16:45)
--- NOTE | 2019-06-07 17:04 | Diagnostic Imaging Report ---
Indication: Abdominal pain, history of ventral abdominal hernia repair Technique: Skinner-scale and duplex images of the upper abdomen were obtained Comparison: Abdominal sonogram dated 03/27/2019, abdomen pelvis CT dated 03/26/2019 Findings: Shadowing, likely indicating scarring, is seen in the midline supraumbilical region in the area of previously reported hernia repair. No acute hernia demonstrated in this location. However, to the right of midline, there is a ventral hernia which measures 5.1 x 4.3 cm. This appears to be of nectar echogenicity without definite peristalsis: The uterus contains fat. Note that previous CT scan demonstrated a fat-containing ventral hernia into the left of midline just above the umbilicus. Gallbladder is unremarkable, without stones, wall thickening, nor pericholecystic fluid. Sonographic Walter's sign is negative. Common bile duct measures 3 mm in diameter. No intrahepatic biliary ductal dilatation. Liver demonstrates normal echogenicity, no focal abnormality. It is enlarged. Portal vein and hepatic veins are patent. The main pancreatic duct is dilated, measuring up to 6 mm in diameter. This is also demonstrated on prior sonogram. Spleen is unremarkable. Left kidney measures 10.5 cm in length. Right kidney measures 10.9 cm length. Both kidneys demonstrate normal echogenicity. There is no hydronephrosis. No focal abnormality . Abdominal aorta is partially obscured by bowel gas, visualized portions are non-aneurysmal . Impression: Fat-containing ventral hernia to the right of midline. Note that prior CT scan demonstrated a left of midline ventral fat-containing hernia. Uncertain as to whether this represents the same lesion, or the prior lesion was surgically repaired and the current finding reflects a new hernia. Consider CT for further evaluation if this is considered clinically relevant Pancreatic ductal dilatation, also demonstrate on prior sonogram, likely related to chronic pancreatitis demonstrated on prior CT Negative for gallstones or dilated bile ducts Hepatomegaly, also previously reported
--- NOTE | 2019-06-07 17:18 | NUR ---
ED Nurse Note: Lactic sent to lab
--- NOTE | 2019-06-07 17:22 | NUR ---
ED Nurse Note: pt taken to CT
[2019-06-07 17:56] VITALS: BP 132/82
--- NOTE | 2019-06-07 18:34 | Diagnostic Imaging Report ---
Indication: Abdominal pain, suspected abdominal wall hernia Technique: Spiral acquisitions obtained through the abdomen and pelvis. No oral contrast utilized, per emergency room physician request No IV contrast utilized, per referring physician request.. Multiplanar reconstructions were generated. Total dose length product 1320 mGycm. CTDIvol(s) 21 mGy. Dose reduction achieved using automated exposure control Comparison: 03/26/2019, also sonogram of earlier the same day Findings: Midline surgical scar noted, reportedly status post repair of prior ventral hernia. There is again demonstrated a small left sided supraumbilical ventral hernia which contains only fat. This is unchanged from the previous exam. There are no findings to suggest obstruction or strangulation. No bowel is contained in the hernia. The appendix is normal. There is suggestion of mild wall thickening of the ascending colon as well as the descending colon and sigmoid.. No evidence of colonic diverticulosis or diverticulitis. No small bowel distention. No free or loculated intraperitoneal gas or fluid is evident. The distal esophagus, stomach, duodenum are unremarkable. Lack of IV contrast limits assessment of the solid organs. The liver is hypoattenuating, although less so than on the prior exam. It is somewhat enlarged. No gross focal abnormality. The gallbladder, bile ducts are unremarkable. The pancreas is diffusely atrophic and demonstrates calcification. Pancreatic ductal dilatation described on prior sonography is less evident on CT The spleen is unremarkable except for an accessory splenule. The adrenals and kidneys are unremarkable. No renal or ureteral calculi, hydronephrosis, or hydroureter demonstrated. The bladder is somewhat distended. No pelvic mass or adenopathy. Normal uterus and adnexal structures. The included lung bases demonstrate some compressive atelectatic changes posteriorly. The bones are unremarkable. Impression: Unchanged left-sided supraumbilical fat-containing ventral hernia, corresponding to findings reported on recent ultrasound. There is evidence of prior midline surgery as well. Mild colonic wall thickening, raises concern for colitis. Correlate with clinical findings No other acute abnormality demonstrated Mild fatty liver, less striking than on previous study of 03/26/2019 Evidence of chronic calcified pancreatitis, also previously reported. Note that sonographically evident pancreatic ductal dilatation is less evident on CT The findings as noted, including accessory splenule, compressive basilar pulmonary atelectasis This agrees with the preliminary interpretation provided overnight by [facility] teleradiology service. The CT scanner at [facility] is accredited by the [employer] and the scans are performed using protocols designed to limit radiation exposure to as low as reasonably achievable to attain images of sufficient resolution adequate for diagnostic evaluation.
[2019-06-07] MEDS ORDERED: metroNIDAZOLE 500mg tab ORAL ONE (19:00)
--- NOTE | 2019-06-07 19:19 | NUR ---
HAND-OFF: Report given to Tanya Hart RN Endorsed plan of care.
--- NOTE | 2019-06-07 19:41 | NUR ---
ED Nurse Note: Lactic reflex drawn.
--- NOTE | 2019-06-07 20:40 | Emergency Room Report ---
History of Present Illness General Chief Complaint: Abdominal Pain Source: Patient (Iggy Hinds) Present Illness HPI 43-year-old female with history of type 2 diabetes uncontrolled and ventral hernia brought in by paramedics complaining of worsening abdominal pain secondary to her hernia x3 days. Patient has not been seen by her primary doctor. Reports that her primary doctor is Dr. crespo. Denies diarrhea and constipation. Complains of nausea vomiting. Denies bloody emesis. Patient was last seen at [facility] about a month ago for DKA. Patient denies fever and chill, chest pain, shortness of breath, headache and dizziness. Asking for pain medication. Reports that she drinks alcohol on daily basis as well as tobacco smoke. Denies any recent travel. Vital signs are within normal limits. Denies any urinary symptoms. Patient in no distress. (Iggy Hinds) Allergies: Coded Allergies: No Known Allergies (Unverified , 08/04/18) Patient History Past Medical History: see triage record Past Surgical History: unable to obtain Pertinent Family History: unable to obtain Social History: Reports: smoking, alcohol use Now: No Immunizations: UTD Reviewed Nursing Documentation: PMH: Agreed; PSxH: Agreed (Iggy Hinds) Nursing Documentation-PMH Past Medical History: No History, Except For Hx Cardiac Problems: Yes Hx Hypertension: Yes Hx Pacemaker: No Hx Asthma: No Hx COPD: No Hx Diabetes: Yes Hx Cancer: No Hx Gastrointestinal Problems: Yes - Hernia repair 2019 Hx Dialysis: No Hx Neurological Problems: No Hx Cerebrovascular Accident: No Hx Seizures: No (Iggy Hinds) Review of Systems All Other Systems: negative except mentioned in HPI (Iggy Hinds) Physical Exam Vital Signs Date Time Temp Pulse Resp B/P (MAP) Pulse Ox O2 Delivery O2 Flow Rate FiO2 06/07/19 13:47 98.2 82 17 138/92 (107) 98 Room Air Sp02 EP Interpretation: reviewed, normal General Appearance: alert, GCS 15, non-toxic, mild distress Head: normocephalic, atraumatic Eyes: bilateral eye normal inspection, bilateral eye PERRL ENT: hearing grossly normal, normal pharynx, no angioedema, normal voice Neck: full range of motion, supple/symm/no masses Respiratory: chest non-tender, lungs clear, normal breath sounds, no rhonchi, no respiratory distress, no retraction, no wheezing, speaking full sentences Cardiovascular #1: regular rate, rhythm, no edema, no murmur Gastrointestinal: non tender, no organomegaly, no peritonitis, no bruit, no guarding, no pulsatile mass, no rebound, hernia - Ventral hernia Rectal: deferred Genitourinary: no CVA tenderness Musculoskeletal: back normal, no calf tenderness Neurologic: alert, motor strength/tone normal, oriented x3, sensory intact, responsive, speech normal Psychiatric: judgement/insight normal, memory normal, mood/affect normal, no suicidal/homicidal ideation Skin: no rash Lymphatic: no adenopathy (Iggy Hinds) Medical Decision Making PA Attestation All my diagnosis and treatment plans were reviewed ad discussed with my supervising physician Dr. Waggoner (Iggy Hinds) Diagnostic Impression: Primary Impression: Hyperglycemia Additional Impressions: Lactic acid increased Infectious colitis Ventral hernia Qualified Codes: K43.9 - Ventral hernia without obstruction or gangrene ER Course 43-year-old female with history of type 2 diabetes uncontrolled and ventral hernia brought in by paramedics complaining of worsening abdominal pain secondary to her hernia x3 days. Patient has not been seen by her primary doctor. Reports that her primary doctor is Dr. crespo. Denies diarrhea and constipation. Complains of nausea vomiting. Denies bloody emesis. Patient was last seen at [place] [facility] about a month ago for DKA. Patient denies fever and chill, chest pain, shortness of breath, headache and dizziness. Asking for pain medication. Reports that she drinks alcohol on daily basis as well as tobacco smoke. Denies any recent travel. Vital signs are within normal limits. Denies any urinary symptoms. Patient in no distress. Ddx considered but are not limited to: appendicitis, cholecystis, gastritis, gastroenteritis, UTI, pyonephritis, SBO, diverticulitis, influenza with GI manifestation, RI, complication with , incarcerated hernia, reducible hernia, colitis, DKA, hyperglycemia Vital signs: are WNL, pt. is afebrile H&PE are most consistent with: Hyperglycemia, inflammatory versus infectious colitis, elevated lactic acid, ORDERS: abdominal CT, abdominal pain set, EKG, abdominal US, DKA order set ED INTERVENTIONS: NS bolus, Zofran, morphine, ciprofloxacin, Flagyl Patient was admitted with diagnosis of hyperglycemia, ventral hernia, inflammatory colitis and elevated lactic acid to [facility] under supervision of : Rosaline pt stable at time of admission (Iggy Hinds) ER Course PA SaPatiediblerto initially seen and evaluated by JAYLEN Hinds. I agree with her evaluation and assessment. We discussed and developed a appropriate treatment plan for the patient. CT shows pancolitis. Glucose greater than 900 with no evidence of DKA. Lactic greater than 13. Patient afebrile, nontoxic- appearing. Multiple IVs placed but infiltrated. EJ line placed. Given IV fluids. Given insulin. Given broad-spectrum antibiotics. Because of insurance patient will be transferred (Wesley Waggoner MD) EKG Diagnostic Results Rate: tachycardiac Rhythm: other - tachy ST Segments: no acute changes Other Impression No acute ST changes (Igyg Hinds) Chest X-Ray Diagnostic Results Chest X-Ray Diagnostic Results : Chest X-Ray Ordered: Yes # of Views/Limited/Complete: 1 View Indication: Other EP Interpretation: Yes JAYLEN Xray: Interpretation reviewed, by supervising MD, and agrees with findings. Interpretation: no consolidation, no effusion, no pneumothorax Impression: No acute disease Electronically Signed by: Iggy Aleman PA-C (Iggy Hinds) CT/MRI/US Diagnostic Results CT/MRI/US Diagnostic Results : Imaging Test Ordered: CT abdomen pelvis no contrast Impression CT ABDOMEN & PELVIS With Contrast: Circumferential thickening of the wall of the colon is concerning for pancolitis. Consider infectious or inflammatory etiology. No abscess. Midline abdominal wall hernia containing fat. No bowel obstruction. No adnexal masses. No obstructive uropathy. No free air or free fluid. (Iggy Hinds) Last Vital Signs Date Time Temp Pulse Resp B/P (MAP) Pulse Ox O2 Delivery O2 Flow Rate FiO2 06/07/19 17:56 98.0 82 19 132/82 99 Room Air (Iggy Hinds) Status: improved (Wesley Waggoner MD) Disposition: XFER SHT-TRM HOSP Condition: Serious Referrals: [facility],REFERRING (PCP) Iggy Hinds Jun 07, 2019 20:40 Wesley Waggoner MD Jun 07, 2019 21:29
[2019-06-07] MEDS ORDERED: metroNIDAZOLE 500mg tab ONE (21:02)
--- NOTE | 2019-06-07 21:30 | NUR ---
ED Nurse Note: report given to MINDA Rodriguez at [facility]
[2019-06-07 22:01] VITALS: BP 162/84
--- NOTE | 2019-06-07 22:30 | NUR ---
ED Nurse Note: [facility] arrived, pt was then transorted via gurney in stable condition. report given to ambulanc personnel. IV site to left EJ intact. pt took all her belongings with her.
[2019-06-07 22:32] VITALS: BP 162/92
== END 2019-06-07 22:32 | disposition short-term general hospital (02) ==
LOC: EDBD 13:59 → EMR 17:10
DX: K43.9 Ventral hernia without obstruction or gangrene (principal); E11.65 Type 2 diabetes mellitus with hyperglycemia; A09 Infectious gastroenteritis and colitis, unspecified; R11.2 Nausea with vomiting, unspecified; F17.200 Nicotine dependence, unspecified, uncomplicated; R79.89 Other specified abnormal findings of blood chemistry; R00.0 Tachycardia, unspecified
CPT/HCPCS: 36415; 71045; 74176; 76700; 80053; 81003; 81025; 82009; 82962; 83605; 83735; 84484; 85025; 87040; 93005; 96361; 96374; 96375; 96376; J0360; J0744; J1815; J2270; J2405; J7030; S0028; Z7502; 99285